=== PATIENT | male | born 1960 | race Caucasian/White ===

== ENCOUNTER → 2016-05-27 | Outpatient (CLI) | payer OTHER ==
--- NOTE | 2016-05-28 08:31 | BD ---
EXAMINATION TYPE: MG DEXA axial skeleton. 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 History of Fracture in Adulthood: no Secondary Osteoporosis: 1. Type 1 Diabetes: no 2. Hyperthyroidism: no 3. Menopause before 45: NA 4. Malnutrition: no 5. Chronic liver disease: no Rheumatoid Arthritis: no Current Tobacco Use: yes RISK FACTORS HISTORY OF: Other Fractures since Age 51: When: cracked ribs age 53 Family History of Osteoporosis: Smoke tobacco: Active: MEDICATIONS: Prednisone or other steroids: How Lon years Additional Medications: COPD, Additional History: EXAM MEASUREMENTS: Bone mineral densitometry was performed using the [employer] System. Bone mineral density as measured about the Lumbar spine is: ----- L1-L4(G/cm2): 1.023 T Score Values are as follows: ----- L2: -1.4 ----- L3: -1.0 ----- L4: -1.9 ----- L1-L4: -1.3 Bone mineral density about the R hip (g/cm2): 0.822 Bone mineral density about the L hip (g/cm2): 0.735 T Score values are as follows: -----R Neck: -1.6 -----L Neck: -2.2 -----R Intertrochanter: -0.7 -----L Intertrochanter: -0.7 IMPRESSION: Osteopenia (T Score between -2.5 and -1 as noted by T score values :L1-L4, Brendan Hips There is slightly increased risk of fracture and the patient may be considered for treatment. Re-Screen 1-2 years. NOTE: T-SCORE=SD OF THE YOUNG ADULT MEAN.
== END | disposition home or self-care (01) ==
LOC: RADBDWWP 14:49
PROVIDERS: ATTEND Family Medicine
DX: M85.851 Other specified disorders of bone density and structure, right thigh (principal); M85.852 Other specified disorders of bone density and structure, left thigh; S22.49XA Multiple fractures of ribs, unspecified side, initial encounter for closed fracture
CPT/HCPCS: 77080

== ENCOUNTER 2016-07-28 09:27 | Emergency (ER) | payer OTHER ==
[2016-07-28] MEDS ORDERED: SODIUM CHLORIDE 0.9% 1,000 ML IV STA (09:44)
[2016-07-28] MEDS ORDERED: KETOROLAC 30 MG/ML 1 ML VIAL IVP STA (09:49)
--- NOTE | 2016-07-28 09:52 | ED ---
Abdominal Pain HPI - General Chief Complaint: Abdominal Pain Stated Complaint: poss kidney stone Time Seen by Provider: 07/28/16 09:43 Source: patient, RN notes reviewed Mode of arrival: ambulatory Limitations: no limitations - History of Present Illness Initial Comments: 55-year-old male presents emergency Department with chief complaint of left flank pain. Patient states started 2 days ago. Patient states she has a history kidney stones and feels exactly the same. He felt that he noticed some blood initially states he has not seen since. Patient states that he had felt better yesterday but the pain worsened again today. Patient denies any vomiting states he was does a. No diarrhea no constipation. Patient states she 's felt hot and cold with the pain but states that he does not know. A fever. Denies any chest pain or shortness breath. - Related Data Home Medications Medication Instructions Recorded Confirmed Aclidinium [place] [Tudorza 1 puff INHALATION RT-BID 09/14/13 07/28/16 Pressair] Fexofenadine HCl [Alaina Allergy] 180 mg PO DAILY 03/21/15 07/28/16 Mometasone/Formoterol [Dulera 200 2 puff INHALATION RT-BID 03/21/15 07/28/16 Mcg/5 Mcg Inhaler] Albuterol Nebulized [Ventolin 2.5 mg INHALATION RT-QID PRN 08/26/15 07/28/16 Nebulized] Calcium Carbonate [Calcium] 600 mg PO DAILY 08/26/15 07/28/16 Multivitamins, Thera [Multivitamin 1 tab PO DAILY 08/26/15 07/28/16 (formulary)] Roflumilast [Daliresp] 500 mcg PO DAILY 08/26/15 07/28/16 Albuterol Sulfate [Proair Hfa] 2 puff INHALATION RT-QID PRN 07/28/16 07/28/16 Alendronate Sodium [Fosamax] 70 mg PO DE LA CRUZ 07/28/16 07/28/16 Theophylline Anhydrous [Uniphyl ER] 600 mg PO DAILY 07/28/16 07/28/16 predniSONE 5 mg PO DAILY 07/28/16 07/28/16 Previous Rx's Medication Instructions Recorded Hydrocodone/Acetaminophen [[place] 1 tab PO Q6HR PRN #20 tab 07/28/16 5-325] Ibuprofen [Motrin] 600 mg PO Q8HR PRN #30 tab 07/28/16 Tamsulosin [Flomax] 0.4 mg PO DAILY #7 cap 07/28/16 Allergies Allergy/AdvReac Type Severity Reaction Status Date / Time No Known Allergies Allergy Verified 07/28/16 10:21 Review of Systems ROS Statement: Those systems with pertinent positive or pertinent negative responses have been documented in the HPI. ROS Other: All systems not noted in ROS Statement are negative. Past Medical History Past Medical History: Asthma, COPD, Sleep Apnea/CPAP/BIPAP Additional Past Medical History / Comment(s): kidney stones History of Any Multi-Drug Resistant Organisms: None Reported Past Surgical History: Hernia Repair Past Anesthesia/Blood Transfusion Reactions: No Reported Reaction Additional Past Anesthesia/Blood Transfusion Reaction / Comment(s): no blood transfusions Past Psychological History: Anxiety Smoking Status: Current every day smoker Past Alcohol Use History: Occasional Past Drug Use History: None Reported - Past Family History Father Family Medical History: COPD Additional Family Medical History / Comment(s): of lung cancer Mother Family Medical History: Asthma General Exam Limitations: no limitations General appearance: alert, in no apparent distress Respiratory exam: Present: normal lung sounds bilaterally. Absent: respiratory distress, wheezes, rales, rhonchi, stridor Cardiovascular Exam: Present: regular rate, normal rhythm, normal heart sounds. Absent: systolic murmur, diastolic murmur, rubs, gallop, clicks GI/Abdominal exam: Present: soft, normal bowel sounds. Absent: distended, tenderness, guarding, rebound, rigid Back exam: Present: CVA tenderness (L). Absent: CVA tenderness (R) Neurological exam: Present: alert, oriented X3, CN II-XII intact Skin exam: Present: warm, dry, intact, normal color. Absent: rash Course Vital Signs 07/28/16 09:29 Temperature 97.5 F L Pulse Rate 96 Respiratory 20 Rate Blood Pressure 138/85 O2 Sat by Pulse 96 Oximetry Medical Decision Making - Medical Decision Making 55-year-old male presented for left flank pain. Patient has a trace of blood in his urine. Patient has a history kidney stones and consistent with his prior CT. Patient's left flank pain consistent with stones. Patient given pain medication, Flomax return parameters were discussed. - Lab Data Result diagrams: 07/28/16 09:44 07/28/16 09:44 Lab Results 07/28/16 07/28/16 07/28/16 Range/Units 09:44 09:44 09:45 WBC 10.3 (3.8-10.6) k/uL RBC 4.99 (4.30-5.90) m/uL Hgb 15.5 (13.0-17.5) gm/dL Hct 46.7 (39.0-53.0) % MCV 93.5 (80.0-100.0) fL MCH 31.1 (25.0-35.0) pg MCHC 33.3 (31.0-37.0) g/dL RDW 13.9 (11.5-15.5) % Plt Count 228 (150-450) k/uL Neutrophils % 81 % Lymphocytes % 11 % Monocytes % 5 % Eosinophils % 0 % Basophils % 0 % Neutrophils # 8.3 H (1.3-7.7) k/uL Lymphocytes # 1.1 (1.0-4.8) k/uL Monocytes # 0.6 (0-1.0) k/uL Eosinophils # 0.0 (0-0.7) k/uL Basophils # 0.0 (0-0.2) k/uL Sodium 137 (137-145) mmol/L Potassium 4.1 (3.5-5.1) mmol/L Chloride 101 (98-107) mmol/L Carbon Dioxide 25 (22-30) mmol/L Anion Gap 11 mmol/L BUN 15 (9-20) mg/dL Creatinine 1.51 H (0.66-1.25) mg/dL Est GFR (MDRD) Af Amer 59 (>60 ml/min/1.73 sqM) Est GFR (MDRD) Non-Af 48 (>60 ml/min/1.73 sqM) Glucose 85 (74-99) mg/dL Calcium 9.3 (8.4-10.2) mg/dL Total Bilirubin 1.4 H (0.2-1.3) mg/dL AST 34 (17-59) U/L ALT 37 (21-72) U/L Alkaline Phosphatase 73 (38-126) U/L Total Protein 6.9 (6.3-8.2) g/dL Albumin 4.3 (3.5-5.0) g/dL Amylase 69 (30-110) U/L Lipase 88 (23-300) U/L Urine Color Light Yellow Urine Appearance Clear (Clear) Urine pH 6.0 (5.0-8.0) Ur Specific [place] 1.003 (1.001-1.035) Urine Protein Negative (Negative) Urine Glucose (UA) Negative (Negative) Urine Ketones 1+ H (Negative) Urine Blood Small H (Negative) Urine Nitrite Negative (Negative) Urine Bilirubin Negative (Negative) Urine Urobilinogen <2.0 (<2.0) mg/dL Ur Leukocyte Esterase Negative (Negative) Urine RBC <1 (0-5) /hpf Urine WBC 1 (0-5) /hpf Disposition Clinical Impression: Left flank pain, Nephrolithiasis Disposition: HOME SELF-CARE Condition: Stable Instructions: Kidney Stones (ED) Additional Instructions: Please return to the Emergency Department if symptoms worsen or any other concerns. Prescriptions: Hydrocodone/Acetaminophen [[place] 5-325] 1 tab PO Q6HR PRN #20 tab PRN Reason: Pain Ibuprofen [Motrin] 600 mg PO Q8HR PRN #30 tab PRN Reason: Pain Tamsulosin [Flomax] 0.4 mg PO DAILY #7 cap Referrals: Naye Doll DO [Primary Care Provider] - 1-2 days Time of Disposition: 11:51
--- NOTE | 2016-07-28 10:07 | XR ---
EXAMINATION TYPE: XR KUB DATE OF EXAM: 07/28/2016 9:55 AM CLINICAL HISTORY: Severe left-sided flank pain. Right flank and back pain. TECHNIQUE: 2 upright KUB images of the abdomen are obtained. COMPARISON: Abdominal x-ray May 14, 2015. CT abdomen and pelvis May 15, 2015. FINDINGS: Scattered gas is seen in non-distended small bowel loops. Gas and fecal material is seen in non-distended colon. There is no visceromegaly, pneumoperitoneum, or abnormal calcification apprecia simba. Small bilateral calculi on prior CT are not clearly seen on plain films all measuring 3 mm or sm aller in size. Some vascular calcification in the pelvis and bilateral groins is present. The lung ba ses are clear and the osseous structures are intact. IMPRESSION: Overall nonobstructive bowel gas pattern. No definite nephrolithiasis. Small bilateral renal calculi prior CT is not as well seen on plain films.
[2016-07-28 10:13] LABS: Basophils % (A) 0 %; CH 32.4; CHCM 34.8; Eosinophils % (A) 0 %; HCT 46.7 % (39.0-53.0); HDW 2.46; HGB 15.5 gm/dL (13.0-17.5); Luc # (Auto) 0.19; Luc % (Auto) 2; Lymphocytes # (A) 1.1 k/uL (1.0-4.8); Lymphocytes % (A) 11 %; MCH 31.1 pg (25.0-35.0); MCHC 33.3 g/dL (31.0-37.0); MCV 93.5 fL (80.0-100.0); Mean Platelet Volume 7.1; Monocytes # (A) 0.6 k/uL (0-1.0); Monocytes % (A) 5 %; Neutrophils # (A) 8.3 k/uL (1.3-7.7); Neutrophils % (A) 81 %; RBC 4.99 m/uL (4.30-5.90); RDW 13.9 % (11.5-15.5); WBC 10.3 k/uL (3.8-10.6); WBC (Perox) 9.77
[2016-07-28 10:19] LABS: Calcium 9.3 mg/dL (8.4-10.2); Potassium 4.1 mmol/L (3.5-5.1); Total Bilirubin 1.4 mg/dL (0.2-1.3); Total Protein 6.9 g/dL (6.3-8.2)
[2016-07-28 11:26] LABS: Appearance,Urine Clear (Clear); Bilirubin,Urine Negative (Negative); Glucose,Urine (UA) Negative (Negative); Ketones,Urine 1+ (Negative); Leukocyte Esterase,Urine Negative (Negative); Nitrite,Urine Negative (Negative); Particle Count 276; Protein,Urine Negative (Negative); RBC,Urine <1 /hpf (0-5); Specific Gravity,Urine 1.003 (1.001-1.035); UA Billing (MACRO vs. MICRO) MICRO; Urobilinogen,Urine <2.0 mg/dL (<2.0); WBC,Urine 1 /hpf (0-5)
[2016-07-28 12:02] VITALS: BP 118/74; PULSE 81; RESP 18; TEMP 97.6
== END 2016-07-28 12:02 | disposition home or self-care (01) ==
LOC: EC 09:27
DX: N20.0 Calculus of kidney (principal); R31.9 Hematuria, unspecified; J45.909 Unspecified asthma, uncomplicated; J44.9 Chronic obstructive pulmonary disease, unspecified; F17.200 Nicotine dependence, unspecified, uncomplicated; Z79.51 Long term (current) use of inhaled steroids; Z79.899 Other long term (current) drug therapy
CPT/HCPCS: 99284; 96374; 96361; 36415; 80053; 82150; 83690; 85025; 81001; 74000; J1885

== ENCOUNTER → 2016-08-01 | Outpatient (CLI) | payer OTHER ==
--- NOTE | 2016-08-01 11:28 | XR ---
EXAMINATION TYPE: XR IVP DATE OF EXAM: 08/01/2016 COMPARISON: KUB obtained on July 28, 2016. HISTORY: History of nephrolithiasis with left flank pain. TECHNIQUE: Following intravenous administration of 100 cc Omnipaque 300, multiple spot images are obt ained. The preliminary film of the abdomen reveals no significant abnormality. No definite nephrolithiasis i s seen. There is a mild amount of stool noted in the colon. Following intravenous administration of contrast material, sequential films of the abdomen were obtai lakisha. There is prompt and symmetrical excretion of the contrast by both kidneys which demonstrate nor mal size and configuration. The calyces are not blunted bilaterally. The left ureter demonstrates a l inear filling defect in the very proximal ureter, this could be due to redundancy of the ureter. On t he 10 minute image there is some bulbous appearance to the extrarenal pelvis which is more than what would be expected given that the patient's CT scan from May 15, 2015 did not demonstrate an extraren al pelvis. There is gradual accumulation of contrast material in the urinary bladder showing no gross abnormality. The post-voiding film shows minimal residual contrast in the collecting systems and ur inary bladder. IMPRESSION: The left renal pelvis is prominent especially on the 10 minute image. This is increased in size when compared to the CT scan obtained on May 15, 2015. There is also a linear filling defect in the proxi mal ureter. Diagnostic considerations include a normal variant extrarenal pelvis, normal redundancy o f the proximal ureter, however given patient's history an obstructing focus at this location is diffi cult to fully exclude a CT scan is recommended if warranted.
== END ==
LOC: RADFLMAIN 08:44
PROVIDERS: ATTEND Family Medicine
DX: R10.84 Generalized abdominal pain (principal)
CPT/HCPCS: 74400; Q9967

== ENCOUNTER → 2016-08-08 | Outpatient (CLI) | payer OTHER ==
--- NOTE | 2016-08-08 14:11 | CT ---
EXAMINATION TYPE: CT abdomen pelvis wo con DATE OF EXAM: 08/08/2016 COMPARISON: 05/15/2015 INDICATION: Patient complains of left flank pain. DLP: 270.9 mGycm, Automated exposure control for dose reduction was used. CONTRAST: 0 mL of Omnipaque 300. Study performed without Oral Contrast TECHNIQUE: Axial images were obtained from above the diaphragm to the pubic rami in the axial plane a t 5 mm thick sections. Reconstructed images are reviewed on the computer in the coronal plane. FINDINGS: Limited CT sections are obtained the lung bases. The lung bases are clear. CT ABDOMEN: Liver: Normal Spleen: Normal Pancreas: Normal Adrenal glands: The adrenal glands are normal. Gallbladder: Normal Kidneys: No masses are evident. No hydronephrosis is present. There is mild prominence of the inferi or pole right renal collecting system. No cysts are present. There is a 0.3 similar calcification wi thout obstruction within the mid left kidney. Aorta: Vascular calcification is within the aorta. Inferior vena cava: Normal. CT PELVIS: Loops of bowel within the abdomen and pelvis are normal. Fecal debris is within the distal colon. Study is without oral contrast limiting its evaluation. Appendix: Normal as visualized. Urinary bladder: Normal. Genitourinary structures: Prostate is normal Osseous structures: No suspicious lytic or sclerotic lesions. Some facet changes are within the lumba r spine. IMPRESSIONS: 1. 0.3 cm nonobstructing left renal stone. 2. Previous UVJ junction stone is not identified. There continues to be prominence of the inferior po le left renal collecting system without hydroureter.
== END | disposition home or self-care (01) ==
LOC: RADCTMAIN 10:59
PROVIDERS: ATTEND Family Medicine
DX: N20.0 Calculus of kidney (principal)
CPT/HCPCS: 74176

== ENCOUNTER 2016-12-20 10:22 | Inpatient (IN) | payer OTHER ==
[2016-12-20] MEDS ORDERED: SODIUM CHLORIDE 0.9% 500 ML IV STA (10:30)
[2016-12-20] MEDS ORDERED: SODIUM CHLORIDE 0.9% 1,000 ML IV STA (10:30)
[2016-12-20] MEDS ORDERED: methylPREDNISolone SOD SUCCI 125 MG/2 ML VIAL IV STA (10:30)
[2016-12-20] MEDS ORDERED: IPRATROPIUM-ALBUTEROL 3 ML NEB INHALATION STA ×2 (10:30→11:58)
[2016-12-20] MEDS ORDERED: MAGNESIUM SULFATE-D5W PMX 1 GM in DEXTROSE/WATER 1 100ML.BAG IVPB STA (10:30)
[2016-12-20] MEDS ORDERED: LORazepam 2 MG/ML INJ IV STA (10:33)
--- NOTE | 2016-12-20 10:36 | ED ---
SOB HPI - General Chief Complaint: Shortness of Breath Stated Complaint: wyatt Time Seen by Provider: 12/20/16 10:28 Source: patient, RN notes reviewed Mode of arrival: wheelchair Limitations: no limitations - History of Present Illness Initial Comments: This is a 56-year-old male with a history of COPD/emphysema who is been having some intermittent episodes of shortness of breath throughout the week he got really bad yesterday and extremely bad today where was refractory to his albuterol nebulizer treatments. He denies any fevers chills sweats phlegm production he states the feeling is typical exacerbation of his underlying lung disease. He denies any overt chest pain he does admit he is very anxious because he can't breathe very well. MD Complaint: shortness of breath - Related Data Home Medications Medication Instructions Recorded Confirmed Aclidinium [place] [Tudorza 1 puff INHALATION RT-DAILY 09/14/13 12/20/16 Pressair] Fexofenadine HCl [Alaina Allergy] 180 mg PO DAILY 03/21/15 12/20/16 Mometasone/Formoterol [Dulera 200 2 puff INHALATION RT-BID 03/21/15 12/20/16 Mcg/5 Mcg Inhaler] Albuterol Nebulized [Ventolin 2.5 mg INHALATION RT-QID PRN 08/26/15 12/20/16 Nebulized] Roflumilast [Daliresp] 500 mcg PO DAILY 08/26/15 12/20/16 Albuterol Sulfate [Proair Hfa] 2 puff INHALATION RT-QID PRN 07/28/16 12/20/16 Alendronate Sodium [Fosamax] 70 mg PO DE LA CRUZ 07/28/16 12/20/16 predniSONE 5 mg PO DAILY 07/28/16 12/20/16 Theophylline Anhydrous 200 mg PO BID 12/20/16 12/20/16 [Theophylline] Allergies Allergy/AdvReac Type Severity Reaction Status Date / Time No Known Allergies Allergy Verified 12/20/16 12:18 Review of Systems ROS Statement: Those systems with pertinent positive or pertinent negative responses have been documented in the HPI. ROS Other: All systems not noted in ROS Statement are negative. Past Medical History Past Medical History: Asthma, COPD, Sleep Apnea/CPAP/BIPAP Additional Past Medical History / Comment(s): kidney stones History of Any Multi-Drug Resistant Organisms: None Reported Past Surgical History: Hernia Repair Past Anesthesia/Blood Transfusion Reactions: No Reported Reaction Additional Past Anesthesia/Blood Transfusion Reaction / Comment(s): no blood transfusions Past Psychological History: Anxiety Smoking Status: Current every day smoker Past Alcohol Use History: Occasional Past Drug Use History: None Reported - Past Family History Father Family Medical History: COPD Additional Family Medical History / Comment(s): of lung cancer Mother Family Medical History: Asthma General Exam - General Exam Comments Initial Comments: This is a well-developed well-nourished awake alert male he is in obvious respiratory distress Limitations: no limitations General appearance: alert, anxious, in distress Head exam: Present: atraumatic, normocephalic, normal inspection Eye exam: Present: normal appearance, PERRL, EOMI. Absent: scleral icterus, conjunctival injection, periorbital swelling ENT exam: Present: mucous membranes dry Neck exam: Present: normal inspection. Absent: tenderness, meningismus, lymphadenopathy Respiratory exam: Present: wheezes, accessory muscle use, decreased breath sounds Cardiovascular Exam: Present: normal rhythm, tachycardia GI/Abdominal exam: Present: soft, normal bowel sounds. Absent: distended, tenderness, guarding, rebound, rigid Extremities exam: Present: normal inspection, full ROM, normal capillary refill. Absent: tenderness, pedal edema, joint swelling, calf tenderness Back exam: Present: normal inspection Neurological exam: Present: alert, oriented X3, CN II-XII intact Psychiatric exam: Present: normal affect, normal mood Skin exam: Present: warm, dry, intact, normal color. Absent: rash Course Vital Signs 12/20/16 12/20/16 12/20/16 10:24 10:30 10:44 Temperature 97.2 F L Pulse Rate 114 H 103 H Respiratory 22 26 H Rate Blood Pressure 165/96 O2 Sat by Pulse 95 Oximetry 12/20/16 12/20/16 12/20/16 10:49 11:16 12:05 Temperature Pulse Rate 101 H 100 106 H Respiratory 22 Rate Blood Pressure 137/87 O2 Sat by Pulse 95 Oximetry 12/20/16 12/20/16 12:13 12:18 Temperature Pulse Rate 103 H 102 H Respiratory 20 Rate Blood Pressure 129/80 O2 Sat by Pulse 95 Oximetry - Reevaluation(s) Reevaluation #1: 11/11/17 11:59 Reevaluation patient finds that he is still very dyspneic with diminished breath sounds and diffuse wheezing. He has received IV magnesium thus far as well as IV steroids. Repeat updraft has been ordered. Reevaluation #2: 12/20/16 13:02 Reevaluation reveals patient still very dyspneic with diminished breath sounds. Medical Decision Making - Medical Decision Making The patient persists in having dyspnea with him and his breath sounds some wheezing in spite of aggressive treatment patient will be admitted case will be discussed with Dr. Akins the patient does see Dr. Ho from pulmonary medicine. - Lab Data Result diagrams: 12/20/16 10:42 12/20/16 10:40 Lab Results 12/20/16 12/20/16 12/20/16 Range/Units 10:40 10:40 10:42 WBC 11.0 H (3.8-10.6) k/uL RBC 5.46 (4.30-5.90) m/uL Hgb 16.1 (13.0-17.5) gm/dL Hct 50.9 (39.0-53.0) % MCV 93.2 (80.0-100.0) fL MCH 29.5 (25.0-35.0) pg MCHC 31.7 (31.0-37.0) g/dL RDW 15.2 (11.5-15.5) % Plt Count 233 (150-450) k/uL Neutrophils % 79 % Lymphocytes % 13 % Monocytes % 5 % Eosinophils % 1 % Basophils % 0 % Neutrophils # 8.8 H (1.3-7.7) k/uL Lymphocytes # 1.5 (1.0-4.8) k/uL Monocytes # 0.5 (0-1.0) k/uL Eosinophils # 0.2 (0-0.7) k/uL Basophils # 0.1 (0-0.2) k/uL PT (9.0-12.0) sec INR (<1.2) APTT (22.0-30.0) sec D-Dimer (<0.60) mg/L FEU Sodium 143 (137-145) mmol/L Potassium 4.9 (3.5-5.1) mmol/L Chloride 104 (98-107) mmol/L Carbon Dioxide 27 (22-30) mmol/L Anion Gap 12 mmol/L BUN 10 (9-20) mg/dL Creatinine 0.84 (0.66-1.25) mg/dL Est GFR (MDRD) Af Amer >60 (>60 ml/min/1.73 sqM) Est GFR (MDRD) Non-Af >60 (>60 ml/min/1.73 sqM) Glucose 101 H (74-99) mg/dL Calcium 9.9 (8.4-10.2) mg/dL Magnesium 1.8 (1.6-2.3) mg/dL Total Bilirubin 0.6 (0.2-1.3) mg/dL AST 32 (17-59) U/L ALT 45 (21-72) U/L Alkaline Phosphatase 60 (38-126) U/L Total Creatine Kinase 161 (55-170) U/L CK-MB (CK-2) 8.6 H* (0.0-2.4) ng/mL CK-MB (CK-2) Rel Index 5.3 Troponin I <0.012 (0.000-0.034) ng/mL NT-Pro-B Natriuret Pep pg/mL Total Protein 7.9 (6.3-8.2) g/dL Albumin 4.9 (3.5-5.0) g/dL 12/20/16 12/20/16 12/20/16 Range/Units 10:42 10:42 12:27 WBC (3.8-10.6) k/uL RBC (4.30-5.90) m/uL Hgb (13.0-17.5) gm/dL Hct (39.0-53.0) % MCV (80.0-100.0) fL MCH (25.0-35.0) pg MCHC (31.0-37.0) g/dL RDW (11.5-15.5) % Plt Count (150-450) k/uL Neutrophils % % Lymphocytes % % Monocytes % % Eosinophils % % Basophils % % Neutrophils # (1.3-7.7) k/uL Lymphocytes # (1.0-4.8) k/uL Monocytes # (0-1.0) k/uL Eosinophils # (0-0.7) k/uL Basophils # (0-0.2) k/uL PT 10.4 (9.0-12.0) sec INR 1.0 (<1.2) APTT 20.2 L (22.0-30.0) sec D-Dimer 0.40 (<0.60) mg/L FEU Sodium (137-145) mmol/L Potassium (3.5-5.1) mmol/L Chloride (98-107) mmol/L Carbon Dioxide (22-30) mmol/L Anion Gap mmol/L BUN (9-20) mg/dL Creatinine (0.66-1.25) mg/dL Est GFR (MDRD) Af Amer (>60 ml/min/1.73 sqM) Est GFR (MDRD) Non-Af (>60 ml/min/1.73 sqM) Glucose (74-99) mg/dL Calcium (8.4-10.2) mg/dL Magnesium (1.6-2.3) mg/dL Total Bilirubin (0.2-1.3) mg/dL AST (17-59) U/L ALT (21-72) U/L Alkaline Phosphatase (38-126) U/L Total Creatine Kinase (55-170) U/L CK-MB (CK-2) (0.0-2.4) ng/mL CK-MB (CK-2) Rel Index Troponin I (0.000-0.034) ng/mL NT-Pro-B Natriuret Pep 26 pg/mL Total Protein (6.3-8.2) g/dL Albumin (3.5-5.0) g/dL - EKG Data -: EKG Interpreted by Me EKG shows normal: sinus rhythm (Sinus rhythm [place] of 000101 QRS 94 QT since QTC of 344/443 evidence a right word axis no acute ST-T wave changes) - Radiology Data Radiology results: report reviewed (I did review the imaging and reports no acute findings.), image reviewed Critical Care Time Critical Care Time: Yes Critical Care Time: 31 minutes of critical care time which includes initial presentation with history physical labs x-rays several reevaluation the patient responsive therapy discuss with the patient has regarding findings discussed with the admitting physician admission orders and documentation of the above. Disposition Clinical Impression: Acute exacerbation of chronic obstructive airways disease, Adult respiratory distress syndrome Disposition: ADMITTED IP TO THIS HOSP Condition: Stable Referrals: Naye Doll DO [Primary Care Provider] - 1-2 days
[2016-12-20 11:01] LABS: Basophils # (A) 0.1 k/uL (0-0.2); Basophils % (A) 0 %; CH 30.9; CHCM 33.3; Eosinophils # (A) 0.2 k/uL (0-0.7); Eosinophils % (A) 1 %; HCT 50.9 % (39.0-53.0); HDW 2.48; HGB 16.1 gm/dL (13.0-17.5); Luc # (Auto) 0.12; Luc % (Auto) 1; Lymphocytes # (A) 1.5 k/uL (1.0-4.8); Lymphocytes % (A) 13 %; MCH 29.5 pg (25.0-35.0); MCHC 31.7 g/dL (31.0-37.0); MCV 93.2 fL (80.0-100.0); Mean Platelet Volume 7.7; Monocytes # (A) 0.5 k/uL (0-1.0); Monocytes % (A) 5 %; Neutrophils # (A) 8.8 k/uL (1.3-7.7); Neutrophils % (A) 79 %; RBC 5.46 m/uL (4.30-5.90); RDW 15.2 % (11.5-15.5); WBC (Perox) 10.59
--- NOTE | 2016-12-20 11:02 | XR ---
EXAMINATION TYPE: XR chest 1V portable DATE OF EXAM: 12/20/2016 HISTORY: difficulty breathing. REFERENCE: Previous study dated 08/26/2015. FINDINGS: Lung volumes are prominent. The lungs are clear. Pleural space are clear. The heart is not enlarged. IMPRESSION: COPD.
[2016-12-20 11:17] LABS: ALT 45 U/L (21-72); AST 32 U/L (17-59); Alkaline Phosphatase 60 U/L (38-126); Anion Gap 12 mmol/L; Blood Urea Nitrogen 10 mg/dL (9-20); Calcium 9.9 mg/dL (8.4-10.2); Carbon Dioxide 27 mmol/L (22-30); Chloride 104 mmol/L (98-107); Glucose 101 mg/dL (74-99); Magnesium 1.8 mg/dL (1.6-2.3); Non-African American GFR(MDRD) >60 (>60 ml/min/1.73 sqM); Potassium 4.9 mmol/L (3.5-5.1); Sodium 143 mmol/L (137-145); Total Bilirubin 0.6 mg/dL (0.2-1.3); Total Protein 7.9 g/dL (6.3-8.2)
[2016-12-20 11:26] LABS: Creatine Kinase 161 U/L (55-170)
[2016-12-20 11:39] LABS: Partial Thromboplastin Time 20.2 sec (22.0-30.0); Prothrombin Time 10.4 sec (9.0-12.0)
[2016-12-20 11:39] LABS: Troponin I <0.012 ng/mL (0.000-0.034)
[2016-12-20 11:44] LABS: Creatine Kinase MB 8.6 ng/mL (0.0-2.4)
--- NOTE | 2016-12-20 13:09 | ED ---
Medical Decision Making - Medical Decision Making I did discuss smoking cessation with the patient including the benefits and the risks. Conversation lasted 3.1 minutes. - Lab Data Result diagrams: 12/20/16 10:42 12/20/16 10:40 Lab Results 12/20/16 12/20/16 12/20/16 Range/Units 10:40 10:40 10:42 WBC 11.0 H (3.8-10.6) k/uL RBC 5.46 (4.30-5.90) m/uL Hgb 16.1 (13.0-17.5) gm/dL Hct 50.9 (39.0-53.0) % MCV 93.2 (80.0-100.0) fL MCH 29.5 (25.0-35.0) pg MCHC 31.7 (31.0-37.0) g/dL RDW 15.2 (11.5-15.5) % Plt Count 233 (150-450) k/uL Neutrophils % 79 % Lymphocytes % 13 % Monocytes % 5 % Eosinophils % 1 % Basophils % 0 % Neutrophils # 8.8 H (1.3-7.7) k/uL Lymphocytes # 1.5 (1.0-4.8) k/uL Monocytes # 0.5 (0-1.0) k/uL Eosinophils # 0.2 (0-0.7) k/uL Basophils # 0.1 (0-0.2) k/uL PT (9.0-12.0) sec INR (<1.2) APTT (22.0-30.0) sec D-Dimer (<0.60) mg/L FEU Sodium 143 (137-145) mmol/L Potassium 4.9 (3.5-5.1) mmol/L Chloride 104 (98-107) mmol/L Carbon Dioxide 27 (22-30) mmol/L Anion Gap 12 mmol/L BUN 10 (9-20) mg/dL Creatinine 0.84 (0.66-1.25) mg/dL Est GFR (MDRD) Af Amer >60 (>60 ml/min/1.73 sqM) Est GFR (MDRD) Non-Af >60 (>60 ml/min/1.73 sqM) Glucose 101 H (74-99) mg/dL Calcium 9.9 (8.4-10.2) mg/dL Magnesium 1.8 (1.6-2.3) mg/dL Total Bilirubin 0.6 (0.2-1.3) mg/dL AST 32 (17-59) U/L ALT 45 (21-72) U/L Alkaline Phosphatase 60 (38-126) U/L Total Creatine Kinase 161 (55-170) U/L CK-MB (CK-2) 8.6 H* (0.0-2.4) ng/mL CK-MB (CK-2) Rel Index 5.3 Troponin I <0.012 (0.000-0.034) ng/mL NT-Pro-B Natriuret Pep pg/mL Total Protein 7.9 (6.3-8.2) g/dL Albumin 4.9 (3.5-5.0) g/dL 12/20/16 12/20/16 12/20/16 Range/Units 10:42 10:42 12:27 WBC (3.8-10.6) k/uL RBC (4.30-5.90) m/uL Hgb (13.0-17.5) gm/dL Hct (39.0-53.0) % MCV (80.0-100.0) fL MCH (25.0-35.0) pg MCHC (31.0-37.0) g/dL RDW (11.5-15.5) % Plt Count (150-450) k/uL Neutrophils % % Lymphocytes % % Monocytes % % Eosinophils % % Basophils % % Neutrophils # (1.3-7.7) k/uL Lymphocytes # (1.0-4.8) k/uL Monocytes # (0-1.0) k/uL Eosinophils # (0-0.7) k/uL Basophils # (0-0.2) k/uL PT 10.4 (9.0-12.0) sec INR 1.0 (<1.2) APTT 20.2 L (22.0-30.0) sec D-Dimer 0.40 (<0.60) mg/L FEU Sodium (137-145) mmol/L Potassium (3.5-5.1) mmol/L Chloride (98-107) mmol/L Carbon Dioxide (22-30) mmol/L Anion Gap mmol/L BUN (9-20) mg/dL Creatinine (0.66-1.25) mg/dL Est GFR (MDRD) Af Amer (>60 ml/min/1.73 sqM) Est GFR (MDRD) Non-Af (>60 ml/min/1.73 sqM) Glucose (74-99) mg/dL Calcium (8.4-10.2) mg/dL Magnesium (1.6-2.3) mg/dL Total Bilirubin (0.2-1.3) mg/dL AST (17-59) U/L ALT (21-72) U/L Alkaline Phosphatase (38-126) U/L Total Creatine Kinase (55-170) U/L CK-MB (CK-2) (0.0-2.4) ng/mL CK-MB (CK-2) Rel Index Troponin I (0.000-0.034) ng/mL NT-Pro-B Natriuret Pep 26 pg/mL Total Protein (6.3-8.2) g/dL Albumin (3.5-5.0) g/dL Disposition Clinical Impression: Acute exacerbation of chronic obstructive airways disease, Adult respiratory distress syndrome, Smoking Disposition: ADMITTED IP TO THIS HOSP Condition: Stable Referrals: Naye Doll DO [Primary Care Provider] - 1-2 days
[2016-12-20 14:34] VITALS: BMI 25.0
[2016-12-20] MEDS ORDERED: LORazepam 0.5 MG TAB PO PRN (15:46)
[2016-12-20] MEDS ORDERED: IPRATROPIUM-ALBUTEROL 3 ML NEB INHALATION SCH (16:00)
--- NOTE | 2016-12-20 16:34 | HP ---
HISTORY AND PHYSICAL DATE OF SERVICE: 12/20/2016. CHIEF COMPLAINT: Shortness of breath. HISTORY: This 56-year-old gentleman with a past medical history of multiple medical problems including asthma, COPD, sleep apnea, history kidney stones, CPAP, history of anxiety being followed by Dr. Doll in the outpatient setting, was complaining of shortness of breath and cough for the past week. The patient continues to smoke and the shortness of breath refractory to albuterol nebulizers and the patient came to [facility] and admitted for evaluation and treatment. Patient also had some phlegm production, but no sweats or chills. No rigors reported. The initial chest x- ray did not show any acute pneumonia. Patient started on IV antibiotics and bronchodilators, steroids. The patient is extremely short of breath and unable to complete a sentence and has a pulse ox is about 89 on 2 L at this time. Patient closely monitored. PAST MEDICAL HISTORY: History of asthma, COPD, sleep apnea, kidney stones. MEDICATIONS: Prior to admission include home medications are: 1. Theophylline 200 mg p.o. b.i.d. 2. Tudorza Pressair 1 puff daily. 3. Prednisone 5 mg p.o. daily. 4. Daliresp 500 mg p.o. daily. 5. Dulera 2 puffs b.i.d. 6. Alaina 180 mg daily. 7. Fosamax 70 mg. 8. ProAir 2 puffs q.i.d. p.r.n. 9. Ventolin 2.5 q.i.d. p.r.n. ALLERGIES: None. FAMILY HISTORY: History of chronic obstructive pulmonary disease and lung cancer. SOCIAL HISTORY: History of smoking. Occasional alcohol intake. REVIEW OF SYSTEMS: ENT: No diminished hearing or vision. CARDIOVASCULAR: No angina. RESPIRATORY: As mentioned earlier. GI: No nausea. : No dysuria NERVOUS SYSTEM: No numbness or weakness. ALLERGY/IMMUNOLOGY: No asthma or hayfever. MUSCULOSKELETAL: As mentioned earlier. HEMATOLOGY/ONCOLOGY: No anemia. ENDOCRINE: No history of diabetes or hypothyroidism. CONSTITUTIONAL: As mentioned earlier. DERMATOLOGY: Negative. RHEUMATOLOGY: Negative. PSYCHIATRY: As mentioned earlier. PHYSICAL EXAMINATION: Alert and oriented x3. Pulse 125, blood pressure 135/70, respiration 20, temperature 98.2, pulse ox 98% on 2 L. HEENT: Conjunctivae normal. Oral mucosa moist. NECK: No jugular venous distention. No carotid bruit. No lymph node enlargement. CARDIOVASCULAR: S1, S2. RESPIRATORY: Breath sounds diminished in the bases. Bilateral scattered rhonchi and crackles. Expiratory wheezing also present. ABDOMEN: Soft, nontender. No mass palpable. LEGS: No edema, no cyanosis. NERVOUS SYSTEM: Higher function as mentioned. Moves all four limbs. No focal deficits. LYMPHATICS: No lymphadenopathy in the neck, axillae or groin. SKIN: No ulcer, rash bleeding. LABS: WBC 11, hemoglobin 16.1. ASSESSMENT: 1. Chronic obstructive pulmonary disease acute exacerbation with acute purulent tracheobronchitis with acute hypoxic respiratory failure with failure of outpatient treatment. 2. History of asthma, chronic obstructive pulmonary disease. 3. History of nicotine dependence. 4. Sleep apnea. 5. Nephrolithiasis. 6. Chronic hypoxic respiratory failure. 7. Anxiety. 8. Use CPAP at night. RECOMMENDATIONS AND DISCUSSION: In this 56-year-old gentleman who presented with multiple complex medical issues , will monitor the patient closely. Continue the current management and symptomatic treatment. I recommend optimize the bronchodilators and IV steroids. Broad- spectrum IV antibiotics. Pulmonary consultation. ABG on oxygen. Continue to monitor. The patient might need BiPAP at this time for continued evaluation monitoring and Dr. oH will be consulted as mentioned earlier. We will also transfer the patient out to floor if the patient is not improving. Further recommendations to follow. MMODL / IJN: [id number] / SNOW
[2016-12-20] MEDS: IPRATROPIUM-ALBUTEROL 3 ML NEB INHALATION SCH ×2 (16:38→20:36)
[2016-12-20 17:05] LABS: ABG HCO3 22 mmol/L (21-25); ABG PCO2 37 mmHg (35-45); ABG PH 7.39 (7.35-7.45); ABG PO2 102 mmHg (83-108); ABG TCO2 23 mmol/L (19-24)
[2016-12-20 17:06] LABS: ABG Base Excess -1.9 mmol/L
[2016-12-20] MEDS: methylPREDNISolone SOD SUCCI 125 MG/2 ML VIAL IV SCH ×2 (18:02→23:58)
[2016-12-20] MEDS: ALPRAZolam 0.5 MG TAB PO PRN (18:02)
[2016-12-20] MEDS: HEPARIN SODIUM,PORCINE 5,000 UNIT/ML 1 ML VIAL SQ SCH (20:11)
[2016-12-20] MEDS: BUDESONIDE 1 MG/2 ML NEBU INHALATION SCH ×2 (20:36)
[2016-12-20] MEDS: FORMOTEROL FUMARATE 20 MCG/2 ML NEBU INHALATION SCH ×2 (20:43)
[2016-12-21] MEDS: methylPREDNISolone SOD SUCCI 125 MG/2 ML VIAL IV SCH ×4 (05:54→23:18)
[2016-12-21] MEDS: IPRATROPIUM-ALBUTEROL 3 ML NEB INHALATION PRN (06:01)
[2016-12-21] MEDS: ALPRAZolam 0.5 MG TAB PO PRN ×3 (06:06→22:08)
[2016-12-21 07:12] LABS: Basophils % (A) 0 %; CH 31.8; CHCM 33.8; Eosinophils % (A) 0 %; HCT 43.3 % (39.0-53.0); HDW 2.53; HGB 13.8 gm/dL (13.0-17.5); Luc # (Auto) 0.03; Luc % (Auto) 0; Lymphocytes # (A) 0.7 k/uL (1.0-4.8); Lymphocytes % (A) 5 %; MCH 30.2 pg (25.0-35.0); MCHC 31.9 g/dL (31.0-37.0); MCV 94.5 fL (80.0-100.0); Mean Platelet Volume 7.3; Monocytes # (A) 0.3 k/uL (0-1.0); Monocytes % (A) 2 %; Neutrophils # (A) 13.1 k/uL (1.3-7.7); Neutrophils % (A) 92 %; RBC 4.58 m/uL (4.30-5.90); RDW 13.7 % (11.5-15.5); WBC 14.2 k/uL (3.8-10.6); WBC (Perox) 14.28
[2016-12-21] MEDS: BUDESONIDE 1 MG/2 ML NEBU INHALATION SCH ×2 (07:28→19:07)
[2016-12-21] MEDS: IPRATROPIUM-ALBUTEROL 3 ML NEB INHALATION SCH ×4 (07:28→19:07)
[2016-12-21] MEDS: FORMOTEROL FUMARATE 20 MCG/2 ML NEBU INHALATION SCH ×2 (07:28→19:07)
[2016-12-21 07:30] LABS: Anion Gap 7 mmol/L; Blood Urea Nitrogen 13 mg/dL (9-20); Calcium 8.6 mg/dL (8.4-10.2); Carbon Dioxide 24 mmol/L (22-30); Chloride 107 mmol/L (98-107); Glucose 129 mg/dL (74-99); Non-African American GFR(MDRD) >60 (>60 ml/min/1.73 sqM); Potassium 4.4 mmol/L (3.5-5.1); Sodium 138 mmol/L (137-145)
[2016-12-21] MEDS: PANTOPRAZOLE 40 MG TABLET PO SCH (07:44)
[2016-12-21] MEDS: THEOPHYLLINE 24 HOUR 400 MG CAP.ER.24H PO SCH (09:09)
[2016-12-21] MEDS: HEPARIN SODIUM,PORCINE 5,000 UNIT/ML 1 ML VIAL SQ SCH ×2 (09:09→20:59)
[2016-12-21] MEDS: LORATADINE 10 MG TAB PO SCH (09:09)
[2016-12-21] MEDS: NON-FORMULARY DRUG (Roflumilast [Daliresp] 500 MCG) PO SCH (09:10)
[2016-12-21] MEDS: NICOTINE 21MG/24HR PATCH TRANSDERM SCH (09:10)
--- NOTE | 2016-12-21 12:17 | P.CNPUL ---
History of Present Illness Consult date: 12/21/16 Requesting physician: Donna Akins Reason for consult: COPD Chief complaint: Shortness of breath History of present illness: This is a 56-year-old white male with history of severe end-stage COPD, gold stage IV, O2 dependent but mostly on nocturnal oxygen, prednisone dependent maintained on 5 mg of prednisone daily. Patient is primarily a patient of Dr. Han, and I usually see him in the office on a regular basis. Patient is also known to history of obstructive sleep apnea, chronic anxiety, tobacco dependence syndrome, continues to smoke in spite of his underlying COPD. Patient was brought into the hospital yesterday with mostly increased shortness of breath, cough which is productive with yellow phlegm, wheezing, but no fever , no chills, no nausea, no vomiting, no abdominal pain, no melena, and no hematemesis. Patient's last admission to [facility] was back over a year ago. Patient is compliant with all his meds, however he believes the cold weather change has been a major contributing factor to his COPD exacerbation. Chest x-ray on admission showed no evidence of infiltrate. Patient was admitted, and this consult was initiated. Review of Systems 14 point review of systems were obtained, please refer to pertinent positives in HPI, otherwise remaining systems are negative Past Medical History Past Medical History: Asthma, COPD, Sleep Apnea/CPAP/BIPAP Additional Past Medical History / Comment(s): kidney stones, CPAP/oxygen at night. History of Any Multi-Drug Resistant Organisms: None Reported Past Surgical History: Hernia Repair Additional Past Surgical History / Comment(s): . Past Anesthesia/Blood Transfusion Reactions: No Reported Reaction Additional Past Anesthesia/Blood Transfusion Reaction / Comment(s): no blood transfusions Past Psychological History: Anxiety Additional Psychological History / Comment(s): anxiety with shortness of breath. Smoking Status: Current every day smoker Past Alcohol Use History: Occasional Past Drug Use History: None Reported Additional Drug Use History / Comment(s): . - Past Family History Father Family Medical History: COPD Additional Family Medical History / Comment(s): of lung cancer Mother Family Medical History: Asthma Medications and Allergies Home Medications Medication Instructions Recorded Confirmed Type Aclidinium [place] [Tudorza 1 puff INHALATION RT-DAILY 09/14/13 12/20/16 History Pressair] Fexofenadine HCl [Alaina Allergy] 180 mg PO DAILY 03/21/15 12/20/16 History Mometasone/Formoterol [Dulera 200 2 puff INHALATION RT-BID 03/21/15 12/20/16 History Mcg/5 Mcg Inhaler] Albuterol Nebulized [Ventolin 2.5 mg INHALATION RT-QID PRN 08/26/15 12/20/16 History Nebulized] Roflumilast [Daliresp] 500 mcg PO DAILY 08/26/15 12/20/16 History Albuterol Sulfate [Proair Hfa] 2 puff INHALATION RT-QID PRN 07/28/16 12/20/16 History Alendronate Sodium [Fosamax] 70 mg PO DE [place] CRUZ 07/28/16 12/20/16 History predniSONE 5 mg PO DAILY 07/28/16 12/20/16 History Theophylline Anhydrous 200 mg PO BID 12/20/16 12/20/16 History [Theophylline] Allergies Allergy/AdvReac Type Severity Reaction Status Date / Time No Known Allergies Allergy Verified 12/20/16 12:18 Physical Exam Vitals: Vital Signs Temp Pulse Pulse Resp BP BP Pulse Ox 12/21/16 11:22 108 H 12/21/16 11:14 100 12/21/16 10:27 112 H 12/21/16 08:13 97.7 F 112 H 22 131/81 91 L 12/21/16 07:50 108 H 12/21/16 07:38 110 H 12/21/16 07:37 110 H 12/21/16 07:28 108 H 95 12/21/16 06:13 106 H 12/21/16 06:01 112 H 12/20/16 21:36 97.2 F L 104 H 24 128/80 96 12/20/16 21:02 106 H 12/20/16 20:53 102 H 12/20/16 20:52 102 H 12/20/16 20:36 98 12/20/16 15:52 114 H 12/20/16 15:40 126 H 12/20/16 15:00 98.2 F 125 H 20 135/78 93 L 12/20/16 14:00 97.1 F L 110 H 20 135/81 95 12/20/16 13:30 100 20 139/89 95 12/20/16 13:18 97.7 F 98 20 146/75 95 12/20/16 12:18 102 H 20 129/80 95 12/20/16 12:13 103 H Intake and Output 12/20/16 12/21/16 12/21/16 22:59 06:59 14:59 Intake Total 300 400 Balance 300 400 Intake: Intake, IV Titration 300 Amount Sodium Chloride 0.9% 1, 300 000 ml @ 100 mls/hr IV . Q10H STA Rx#:[id number] Oral 400 Other: Voiding Method Toilet Urinal # Voids 1 Physical Exam: Revealed a 56-year-old white male, cushingoid, cough, in no form of respiratory distress at present. HEENT:[ Cushingoid, Neck is supple.] [No neck masses.] [No thyromegaly.] [No JVD.] PERRLA, EOMI. Chest: [Diminished breath sound bilaterally, slight wheezing on forced expiratory maneuver was noted.] Cardiac Exam: [Normal S1 and S2, no S3 gallop, no murmur.] Abdomen: [Soft, nontender, no megaly, no rebound, no guarding, normal bowel sounds.] Extremities: [No clubbing, no edema, no cyanosis.] Neurological Exam: [No focal neurologic deficit Psychiatric: Normal mood and affect in mental status examination. Lymphatics: No lymphadenopathy was appreciated. Musculoskeletal: Normal range of motion, no deformities, no tenderness.] Results - Laboratory Findings CBC and BMP: 12/21/16 06:46 12/21/16 06:46 ABG ABG pH 7.39 (7.35-7.45) 12/20/16 16:27 ABG pCO2 37 mmHg (35-45) 12/20/16 16:27 ABG pO2 102 mmHg (83-108) 12/20/16 16:27 ABG O2 Saturation 98.0 % (94-97) H 12/20/16 16:27 PT/INR, D-dimer PT 10.4 sec (9.0-12.0) 12/20/16 10:42 INR 1.0 (<1.2) 12/20/16 10:42 D-Dimer 0.40 mg/L FEU (<0.60) 12/20/16 12:27 Abnormal lab findings: Abnormal Labs 12/20/16 12/20/16 12/20/16 10:40 10:40 10:42 WBC 11.0 H Neutrophils # 8.8 H Lymphocytes # APTT ABG O2 Saturation Glucose 101 H CK-MB (CK-2) 8.6 H* 12/20/16 12/20/16 12/21/16 10:42 16:27 06:46 WBC 14.2 H Neutrophils # 13.1 H Lymphocytes # 0.7 L APTT 20.2 L ABG O2 Saturation 98.0 H Glucose CK-MB (CK-2) 12/21/16 06:46 WBC Neutrophils # Lymphocytes # APTT ABG O2 Saturation Glucose 129 H CK-MB (CK-2) - Diagnostic Findings Chest x-ray: image reviewed (COPD findings, lung volumes are prominent, no evidence of active disease noted.) Assessment and Plan Assessment: Impression: 1 acute exacerbation of COPD and acute on chronic hypoxic respiratory failure. 2 history of tobacco dependence syndrome, patient was counseled over and over again regarding his smoking cessation. 3 history of chronic anxiety syndrome. 4 history of obstructive sleep apnea uses no to normal O2 and CPAP at night. 5 history of nephrolithiasis. Recommendation: Reviewed the present course of treatment, patient seems to be on appropriate course of bronchodilators, steroids, I would only add doxycycline , and likely consider discharge planning in the next 24 hours. Patient would have to be discharged on a relatively high dose of prednisone, tapered down to his usual dose of 5 mg over the next 3 weeks. We'll continue to follow closely. Time with Patient: Greater than 30
[2016-12-21] MEDS: DOXYCYCLINE 50 MG CAP PO SCH ×2 (13:04→20:58)
[2016-12-21] MEDS ORDERED: NON-FORMULARY DRUG (Alendronate Sodium [Fosamax] 70 MG) PO SCH (13:08)
--- NOTE | 2016-12-21 18:00 | PN ---
PROGRESS NOTE DATE OF SERVICE: 12/21/2016. INTERIM HISTORY: This 56-year-old gentleman was admitted with COPD acute exacerbation. Acute purulent tracheobronchitis, hypoxic respiratory failure is improving significantly. No chest pain. No palpitations. No fever. The patient has significant anxiety as well. Patient is on extensive bronchodilator treatment. Dr. Ho is following the patient closely. The most recent chest x-ray showed no evidence of pneumonia. PAST MEDICAL HISTORY: Reviewed. REVIEW OF SYSTEMS: CARDIOVASCULAR: No angina and no palpitations. Respiratory: As mentioned earlier. GI no nausea or vomiting. no dysuria. Central nervous system: No numbness or weakness. Allergy/ limnology: No asthma or hayfever. Musculoskeletal: As mentioned earlier. CURRENT MEDICATIONS: Reviewed and include: 1. DuoNeb q.i.d. and p.r.n. 2. Xanax 0.5 t.i.d. p.r.n. 3. Pulmicort 1 mg b.i.d. 4. Vibramycin b.i.d. 5. Perforomist. 6. Claritin. 7. Ativan. 8. Solu-Medrol 60 IV q.6h. 9. Dularest. 10.Protonix. 11.Magdy-24. PHYSICAL EXAM: Patient is alert and oriented x3. The pulse is 112, blood pressure 131/81, respiratory rate 22, temp 97.7, pulse ox 98% on room air. HEENT: Conjunctivae normal. Oral mucosa moist. Neck is no jugular venous distention. No carotid bruit. No lymph nodes enlargement. Cardiovascular system: S1, S2 muffled. Respiratory: Breath sounds diminished in the bases and scattered rhonchi and crackles. Expiratory wheezing also present. Breathing efforts are markedly increased. ABDOMEN: Soft, nontender. Legs are no edema. No swelling. NERVOUS SYSTEM: Higher functions as mentioned. Moves all four extremities. Lymphatics: No lymph nodes palpable in the neck, axillae or groin. SKIN: No ulcers, rashes or bleeding. LAB STUDIES: At this time shows WBC 14, sugars 129, influenza negative. ASSESSMENT: 1. Chronic obstructive pulmonary disease exacerbation with acute purulent tracheobronchitis with acute hypoxic respiratory failure with failure of outpatient treatment. 2. History of asthma, chronic obstructive pulmonary disease. 3. History of nicotine dependence. 4. History of sleep apnea. 5. Anxiety. 6. Nephrolithiasis. 7. Chronic hypoxic respiratory failure. Uses CPAP at night. RECOMMENDATIONS AND DISCUSSION: I recommend to continue current management. Continue the symptomatic treatment. Continue bronchodilators. Continue the rest of medications. Use the Xanax and CPAP as mentioned early. Otherwise continue to monitor. Guarded prognosis. Further recommendations to follow. MMMAMADOUL / MARLONN: [id number] /
[2016-12-22] MEDS: IPRATROPIUM-ALBUTEROL 3 ML NEB INHALATION PRN (04:11)
[2016-12-22] MEDS: methylPREDNISolone SOD SUCCI 125 MG/2 ML VIAL IV SCH ×2 (05:24→12:07)
[2016-12-22] MEDS: ALPRAZolam 0.5 MG TAB PO PRN ×3 (05:43→22:12)
[2016-12-22 07:40] LABS: Basophils % (A) 0 %; CH 31.7; CHCM 33.7; Eosinophils % (A) 0 %; HCT 40.2 % (39.0-53.0); HDW 2.54; Luc # (Auto) 0.05; Luc % (Auto) 0; Lymphocytes # (A) 0.5 k/uL (1.0-4.8); Lymphocytes % (A) 3 %; MCH 30.5 pg (25.0-35.0); MCHC 32.3 g/dL (31.0-37.0); MCV 94.4 fL (80.0-100.0); Mean Platelet Volume 7.4; Monocytes # (A) 0.4 k/uL (0-1.0); Monocytes % (A) 2 %; Neutrophils # (A) 14.5 k/uL (1.3-7.7); Neutrophils % (A) 94 %; RBC 4.26 m/uL (4.30-5.90); RDW 13.6 % (11.5-15.5); WBC 15.4 k/uL (3.8-10.6); WBC (Perox) 16.17
[2016-12-22 07:46] LABS: Anion Gap 8 mmol/L; Blood Urea Nitrogen 15 mg/dL (9-20); Carbon Dioxide 24 mmol/L (22-30); Chloride 105 mmol/L (98-107); Glucose 128 mg/dL (74-99); Non-African American GFR(MDRD) >60 (>60 ml/min/1.73 sqM); Sodium 137 mmol/L (137-145)
[2016-12-22] MEDS: DOXYCYCLINE 50 MG CAP PO SCH ×2 (09:18→20:23)
[2016-12-22] MEDS: PANTOPRAZOLE 40 MG TABLET PO SCH (09:18)
[2016-12-22] MEDS: NICOTINE 21MG/24HR PATCH TRANSDERM SCH ×2 (09:19→09:25)
[2016-12-22] MEDS: THEOPHYLLINE 24 HOUR 400 MG CAP.ER.24H PO SCH (09:19)
[2016-12-22] MEDS: HEPARIN SODIUM,PORCINE 5,000 UNIT/ML 1 ML VIAL SQ SCH ×2 (09:19→20:24)
[2016-12-22] MEDS: LORATADINE 10 MG TAB PO SCH (09:19)
[2016-12-22] MEDS: NON-FORMULARY DRUG (Roflumilast [Daliresp] 500 MCG) PO SCH (09:23)
[2016-12-22] MEDS: BUDESONIDE 1 MG/2 ML NEBU INHALATION SCH ×2 (09:26→19:56)
[2016-12-22] MEDS: IPRATROPIUM-ALBUTEROL 3 ML NEB INHALATION SCH ×5 (09:26→19:56)
[2016-12-22] MEDS: FORMOTEROL FUMARATE 20 MCG/2 ML NEBU INHALATION SCH ×2 (09:26→19:56)
--- NOTE | 2016-12-22 12:26 | P.PN ---
Subjective Progress Note Date: 12/22/16 Principal diagnosis: COPD exacerbation Progress note dated 12/22/2016 56-year-old male with a history of severe end-stage COPD. He has goal stage IV disease. He is oxygen and prednisone dependent. The patient sees Dr. Hodge as his family doctor. 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 He has a history of sleep apnea syndrome chronic anxiety chronic Tobacco dependence. The patient came into the hospital with complaints of increasing shortness of breath cough which is productive of yellow phlegm wheezing chest tightness. No fever no chills. No nausea vomiting or diarrhea. No chest pain. His last admission with more than a year ago.The patient seemed be doing a bit better today. Feeling less short of breath. Still with chest congestion cough tightness and wheezing. Objective - Vital Signs Vital signs: Vital Signs Temp 97.8 F 12/22/16 07:00 Pulse 107 H 12/22/16 09:38 Resp 18 12/22/16 07:00 BP 139/86 12/22/16 07:00 Pulse Ox 95 12/22/16 09:27 Intake & Output 12/21/16 12/22/16 12/22/16 18:59 06:59 18:59 Intake Total 600 Balance 600 Intake: Oral 600 Other: Voiding Method Toilet Toilet Urinal Urinal # Voids 2 1 1 - Exam No acute distress, oriented 3. HEENT examination is grossly unremarkable. Mucous membranes are moist. No oral lesions. Neck supple. Full range of motion. No adenopathy or thyromegaly. Veins are flat. Cardiovascular examination reveals regular rhythm rate. S1-S2 normal. No S3- S4 or murmur. Abdomen soft bowel sounds are heard. No masses or tenderness. Pulmonary examination reveals diminished breath sounds throughout. Symmetric story wheezes and rhonchi. There is prolongation on forced maneuver. No crackles. Extremities are intact. No cyanosis clubbing or edema. Skin without rash. Neurologic examination is brief but nonfocal. - Labs CBC & Chem 7: 12/22/16 07:08 12/22/16 07:08 Labs: Abnormal Lab Results - Last 24 Hours (Table) 12/22/16 12/22/16 Range/Units 07:08 07:08 WBC 15.4 H (3.8-10.6) k/uL RBC 4.26 L (4.30-5.90) m/uL Neutrophils # 14.5 H (1.3-7.7) k/uL Lymphocytes # 0.5 L (1.0-4.8) k/uL Glucose 128 H (74-99) mg/dL Assessment and Plan (1) Anxiety Current Visit: Yes Status: Acute Code(s): F41.9 - ANXIETY DISORDER, UNSPECIFIED SNOMED Code(s): 58860022 (2) Sleep apnea syndrome Current Visit: Yes Status: Acute Code(s): G47.30 - SLEEP APNEA, UNSPECIFIED SNOMED Code(s): 63095848 (3) Hypoxemia Current Visit: Yes Status: Acute Code(s): R09.02 - HYPOXEMIA SNOMED Code(s ): 424456078 (4) Acute exacerbation of chronic obstructive airways disease Current Visit: Yes Status: Acute Code(s): J44.1 - CHRONIC OBSTRUCTIVE PULMONARY DISEASE W (ACUTE) EXACERBATION SNOMED Code(s): 739996948 (5) Smoking Current Visit: Yes Status: Acute Code(s): F17.200 - NICOTINE DEPENDENCE, UNSPECIFIED, UNCOMPLICATED SNOMED Code(s): 59054768 (6) Acute respiratory failure Current Visit: No Status: Acute Code(s): J96.00 - ACUTE RESPIRATORY FAILURE , UNSP W HYPOXIA OR HYPERCAPNIA SNOMED Code(s): 12474225 Plan: plan dated 12/22/2016 The patient seemed be doing a bit better. On all the appropriate medications. This was adjusted by my partner yesterday. We'll continue to follow. Prognosis is guarded. The patient's counseled about smoking cessation. The patient should follow with my partner post discharge. Time with Patient: Less than 30
--- NOTE | 2016-12-22 18:25 | PN ---
PROGRESS NOTE DATE OF SERVICE: 12/22/2016 INTERVAL HISTORY: This 56-year-old gentleman who was admitted with COPD and acute purulent tracheobronchitis and acute hypoxic respiratory failure is being closely monitored. No chest pain. No palpitations. No fever. The patient has significant wheezing. Patient on IV steroids. Pulmonary, Dr. Reynoso is following the patient closely. PHYSICAL EXAM: Alert and oriented times three. Pulse 101, blood pressure 130/70, respiration 20, temp 98.8, pulse ox 94% on 2 L. HEENT: Conjunctivae normal. Neck no jugular venous distention. Cardiovascular: S1, S2 muffled. Respiratory: Breath sounds diminished in the bases. Bilateral scattered rhonchi and crackles. ABDOMEN: Soft, nontender. Legs no edema and no swelling. Central nervous system: Higher functions as mentioned earlier. Moves all four extremities. No focal motor or sensory deficits. Lymphatics: No lymph nodes palpable in the neck, axillae or groin. SKIN: No ulcer, rash, bleeding. LAB STUDIES: At this time shows WBC 15.2, hemoglobin 13, other labs are noted. Glucose 128. ASSESSMENT: 1. Chronic obstructive pulmonary disease acute exacerbation with acute purulent tracheobronchitis with acute hypoxic respiratory failure with failure of outpatient treatment, present on admission. 2. History of asthma, chronic obstructive pulmonary disease. 3. History of nicotine dependence. 4. History of sleep apnea. 5. Anxiety. 6. Nephrolithiasis. 7. Chronic hypoxic respiratory failure. Uses CPAP at night. SUGGESTION/COMMENTS: Recommend to continue current medications, continue with monitoring, symptomatic treatment. Otherwise at this time, taper the steroids. Continue the bronchodilators, antibiotics. Closely follow with Dr. Reynoso. Guarded prognosis. Further recommendations to follow. MMODL / IJN: [id number] /
[2016-12-23] MEDS: methylPREDNISolone SOD SUCCI 40 MG/ML 1 ML VIAL IV SCH ×2 (00:08→10:19)
[2016-12-23] MEDS: IPRATROPIUM-ALBUTEROL 3 ML NEB INHALATION PRN (04:01)
[2016-12-23] MEDS: ALPRAZolam 0.5 MG TAB PO PRN (06:31)
[2016-12-23] MEDS: FORMOTEROL FUMARATE 20 MCG/2 ML NEBU INHALATION SCH (07:32)
[2016-12-23] MEDS: BUDESONIDE 1 MG/2 ML NEBU INHALATION SCH (07:32)
[2016-12-23] MEDS: IPRATROPIUM-ALBUTEROL 3 ML NEB INHALATION SCH ×2 (07:32→11:07)
[2016-12-23 07:44] VITALS: BP 124/79; RESP 18; TEMP 96.9
[2016-12-23 07:50] LABS: Basophils % (A) 0 %; CH 31.7; CHCM 33.8; Eosinophils % (A) 0 %; HCT 39.1 % (39.0-53.0); HDW 2.57; HGB 12.7 gm/dL (13.0-17.5); Luc # (Auto) 0.04; Luc % (Auto) 0; Lymphocytes # (A) 0.4 k/uL (1.0-4.8); Lymphocytes % (A) 3 %; MCH 30.6 pg (25.0-35.0); MCHC 32.4 g/dL (31.0-37.0); MCV 94.3 fL (80.0-100.0); Mean Platelet Volume 7.4; Monocytes # (A) 0.3 k/uL (0-1.0); Monocytes % (A) 3 %; Neutrophils # (A) 11.8 k/uL (1.3-7.7); Neutrophils % (A) 94 %; RBC 4.14 m/uL (4.30-5.90); RDW 13.7 % (11.5-15.5); WBC 12.5 k/uL (3.8-10.6); WBC (Perox) 12.82
[2016-12-23 08:37] LABS: Anion Gap 7 mmol/L; Blood Urea Nitrogen 14 mg/dL (9-20); Calcium 9.1 mg/dL (8.4-10.2); Carbon Dioxide 26 mmol/L (22-30); Chloride 105 mmol/L (98-107); Glucose 123 mg/dL (74-99); Non-African American GFR(MDRD) >60 (>60 ml/min/1.73 sqM); Sodium 138 mmol/L (137-145)
[2016-12-23] MEDS: PANTOPRAZOLE 40 MG TABLET PO SCH (08:53)
[2016-12-23] MEDS: HEPARIN SODIUM,PORCINE 5,000 UNIT/ML 1 ML VIAL SQ SCH (08:54)
[2016-12-23] MEDS: LORATADINE 10 MG TAB PO SCH (08:54)
[2016-12-23] MEDS: DOXYCYCLINE 50 MG CAP PO SCH (08:54)
[2016-12-23] MEDS: THEOPHYLLINE 24 HOUR 400 MG CAP.ER.24H PO SCH (08:55)
[2016-12-23] MEDS: NICOTINE 21MG/24HR PATCH TRANSDERM SCH (09:38)
[2016-12-23] MEDS: NON-FORMULARY DRUG (Roflumilast [Daliresp] 500 MCG) PO SCH (09:38)
[2016-12-23 11:26] VITALS: PULSE 72
--- NOTE | 2016-12-23 13:23 | P.PN ---
Subjective Progress Note Date: 12/23/16 Principal diagnosis: Acute exacerbation of COPD and acute on chronic hypoxic respiratory failure This is a 56-year-old white male with history of severe end-stage COPD, gold stage IV, O2 dependent but mostly on nocturnal oxygen, prednisone dependent maintained on 5 mg of prednisone daily. Patient is primarily a patient of Dr. Han, and I usually see him in the office on a regular basis. Patient is also known to history of obstructive sleep apnea, chronic anxiety, tobacco dependence syndrome, continues to smoke in spite of his underlying COPD. Patient was brought into the hospital yesterday with mostly increased shortness of breath, cough which is productive with yellow phlegm, wheezing, but no fever , no chills, no nausea, no vomiting, no abdominal pain, no melena, and no hematemesis. Patient's last admission to [facility] was back over a year ago. Patient is compliant with all his meds, however he believes the cold weather change has been a major contributing factor to his COPD exacerbation. Chest x-ray on admission showed no evidence of infiltrate. Patient was admitted, and this consult was initiated. On 12/23/2016 patient states significant improvement in his pulmonary status, less wheezing, less chest tightness. He states he is able to move more air, lung sounds are diminished, no rhonchi, no wheezes auscultated. Patient has had no fever since admission. At the time of evaluation he is on room air, in no acute distress. No cultures collected this admission. He is on doxycycline for empiric antibiotic coverage, Solu-Medrol, DuoNeb Pulmicort, Perforomist and theophylline. From pulmonary standpoint he is stable for discharge home today with follow-up in the office with Dr. Ho in 1 week. Objective - Vital Signs Vital signs: Vital Signs Temp 96.9 F L 12/23/16 07:43 Pulse 78 12/23/16 11:19 Resp 18 12/23/16 11:16 BP 124/79 12/23/16 07:43 Pulse Ox 95 12/23/16 07:43 Intake & Output 12/22/16 12/23/16 12/23/16 18:59 06:59 18:59 Intake Total 590 240 Balance 590 240 Weight 72.575 kg Intake: Oral 590 240 Other: Voiding Method Toilet Toilet Toilet Urinal Urinal # Voids 2 2 1 # Bowel Movements 1 - Labs CBC & Chem 7: 12/23/16 07:25 12/23/16 07:25 Labs: Abnormal Lab Results - Last 24 Hours (Table) 12/23/16 12/23/16 Range/Units 07:25 07:25 WBC 12.5 H (3.8-10.6) k/uL RBC 4.14 L (4.30-5.90) m/uL Hgb 12.7 L (13.0-17.5) gm/dL Neutrophils # 11.8 H (1.3-7.7) k/uL Lymphocytes # 0.4 L (1.0-4.8) k/uL Glucose 123 H (74-99) mg/dL Assessment and Plan Plan: Impression: 1 acute exacerbation of COPD and acute on chronic hypoxic respiratory failure. 2 history of tobacco dependence syndrome, patient was counseled over and over again regarding his smoking cessation. 3 history of chronic anxiety syndrome. 4 history of obstructive sleep apnea uses no to normal O2 and CPAP at night. 5 history of nephrolithiasis. Recommendation: Patient is doing well, much improved since admission. He seriously considering quitting smoking altogether, perhaps with the help of acupuncture, requested the names of local acupuncturists. Patient is stable for discharge home on outpatient course of doxycycline and maintenance inhalers and treatments forced his COPD. Follow-up in the office with Dr. Ho in 1 week I performed a history & physical examination of the patient and discussed their management with my nurse practitioner, Gay Fiore. I reviewed the nurse practitioner's note and agree with the documented findings and plan of care. Lung sounds are diminished, no rhonchi, no wheezes. Stable for discharge home, follow-up with Dr. Ho in 1 week. The findings and the impression was discussed with the patient. I attest to the documentation by the nurse practitioner. Time with Patient: Less than 30
--- NOTE | 2016-12-24 14:38 | P.DS ---
Providers Date of admission: 12/20/16 13:06 Expected date of discharge: 12/23/16 Attending physician: oDnna Stuart Consults: 12/20/16 13:06 Consult Physician Routine Consulting Provider: Radha Ho Consult Reason/Comments: COPD exacerbation Do you want consulting provider notified?: Yes Primary care physician: Naye Doll Hospital Course: Final Diagnoses: 1. Acute exacerbation COPD with acute purulent tracheobronchitis with acute hypoxic respiratory failure, failure of outpatient treatment 2. COPD, history of asthma 3. History of nicotine dependence 4. Sleep apnea 5. Anxiety 6. Nephrolithiasis 7. Chronic hypoxic respiratory failure Hospital course: This a 56-year-old gentleman admitted with acute COPD exacerbation with acute purulent tracheobronchitis, acute on chronic hypoxic respiratory failure and multiple other medical issues. Evaluated by pulmonary. Maintained on nebulized bronchodilators, steroids and antibiotics. Significant clinical improvement. Cleared by pulmonary for discharge. Patient is being discharged home in a stable condition with guarded prognosis. The impression and plan of care has been dictated as directed. : I performed a history and examination of this patient, discussed the same with the dictator. I agree with the dictator's note ,documented as a scribe. Any additional findings or plans will be noted. Patient Condition at Discharge: Stable Plan - Discharge Summary New Discharge Prescriptions: New Doxycycline [Vibramycin] 100 mg PO Q12HR 8 Days #16 capsule predniSONE 10 mg PO DAILY 16 Days #40 tab Nicotine 21Mg/24Hr Patch [Habitrol] 1 patch TRANSDERM DAILY #30 patch Pantoprazole [Protonix] 40 mg PO AC-BRKFST #15 tablet.dr Pablo Aclidinium [place] [Tudorza Pressair] 1 puff INHALATION RT-DAILY Fexofenadine HCl [Alaina Allergy] 180 mg PO DAILY Mometasone/Formoterol [Dulera 200 Mcg/5 Mcg Inhaler] 2 puff INHALATION RT-BID Roflumilast [Daliresp] 500 mcg PO DAILY Albuterol Nebulized [Ventolin Nebulized] 2.5 mg INHALATION RT-QID PRN PRN Reason: Shortness Of Breath Alendronate Sodium [Fosamax] 70 mg PO DE LA CRUZ Albuterol Sulfate [Proair Hfa] 2 puff INHALATION RT-QID PRN PRN Reason: Shortness Of Breath Theophylline Anhydrous [Uniphyl] 200 mg PO BID predniSONE 5 mg PO DAILY #0 Discharge Medication List Aclidinium [place] [Tudorza Pressair] 1 puff INHALATION RT-DAILY 09/14/13 [ History] Fexofenadine HCl [Alaina Allergy] 180 mg PO DAILY 03/21/15 [History] Mometasone/Formoterol [Dulera 200 Mcg/5 Mcg Inhaler] 2 puff INHALATION RT-BID [History] Albuterol Nebulized [Ventolin Nebulized] 2.5 mg INHALATION RT-QID PRN 08/26/15 [ History] Roflumilast [Daliresp] 500 mcg PO DAILY 08/26/15 [History] Albuterol Sulfate [Proair Hfa] 2 puff INHALATION RT-QID PRN 07/28/16 [History] Alendronate Sodium [Fosamax] 70 mg PO DE LA CRUZ 07/28/16 [History] Theophylline Anhydrous [Uniphyl] 200 mg PO BID 12/20/16 [History] Doxycycline [Vibramycin] 100 mg PO Q12HR 8 Days #16 capsule 12/23/16 [Rx] Nicotine 21Mg/24Hr Patch [Habitrol] 1 patch TRANSDERM DAILY #30 patch 12/23/16 [ Rx] Pantoprazole [Protonix] 40 mg PO AC-BRKFST #15 tablet. 12/23/16 [Rx] predniSONE 5 mg PO DAILY #0 12/23/16 [Rx] predniSONE 10 mg PO DAILY 16 Days #40 tab 12/23/16 [Rx] Follow up Appointment(s)/Referral(s): Radha Ho MD [STAFF PHYSICIAN] - 12/31/16 1:30 pm Naye Doll DO [Primary Care Provider] - 12/29/16 10:20 am Ambulatory/Diagnostic Orders: Complete Blood Count w/diff [LAB.AMB] Time Frame: 3 Days, Location: Determined By Patient Patient Instructions/Handouts: Prednisone (By mouth), Nicotine (Absorbed through the skin), Pantoprazole (By mouth), Sleep Apnea (GEN), COPD (Chronic Obstructive Pulmonary Disease) (DC), Anxiety (GEN) Activity/Diet/Wound Care/Special Instructions: no smoking o2 sat 93% on RA after ambulation Discharge Disposition: HOME SELF-CARE
== END 2016-12-23 14:08 | disposition home or self-care (01) | DRG 190 ==
LOC: EC 10:22 → 5MS5E 13:06
PROVIDERS: ADMIT Hospitalist; ATTEND Hospitalist
DX: J44.1 Chronic obstructive pulmonary disease with (acute) exacerbation (principal); J96.21 Acute and chronic respiratory failure with hypoxia; F17.200 Nicotine dependence, unspecified, uncomplicated; J20.9 Acute bronchitis, unspecified; J44.0 Chronic obstructive pulmonary disease with (acute) lower respiratory infection; F41.9 Anxiety disorder, unspecified; G47.33 Obstructive sleep apnea (adult) (pediatric); N20.0 Calculus of kidney; Z79.52 Long term (current) use of systemic steroids; Z79.83 Long term (current) use of bisphosphonates; Z79.899 Other long term (current) drug therapy
CPT/HCPCS: 36415; 71010; 80048; 80053; 82550; 82553; 82805; 83735; 83880; 84484; 85025; 85379; 85610; 85730; 87502; 93005; 94640; 94760; 96365; 96375; 99291

== ENCOUNTER 2017-02-22 11:54 | Inpatient (IN) | payer OTHER ==
[2017-02-22] MEDS ORDERED: SODIUM CHLORIDE 0.9% 1,000 ML IV STA (12:09)
[2017-02-22] MEDS ORDERED: MAGNESIUM SULFATE-D5W PMX 1 GM in DEXTROSE/WATER 1 100ML.BAG IVPB STA (12:09)
[2017-02-22] MEDS ORDERED: methylPREDNISolone SOD SUCCI 125 MG/2 ML VIAL IV STA (12:09)
[2017-02-22] MEDS ORDERED: IPRATROPIUM-ALBUTEROL 3 ML NEB INHALATION STA (12:09)
--- NOTE | 2017-02-22 12:14 | ED ---
SOB HPI - General Chief Complaint: Shortness of Breath Stated Complaint: SOB Time Seen by Provider: 02/22/17 12:00 Source: patient, RN notes reviewed Mode of arrival: ambulatory Limitations: no limitations - History of Present Illness Initial Comments: This is a 56-year-old male with a history of COPD who states she's had progressively worsening shortness of breath over last week or so he did have some antibiotics and he finished the other day. He saw his doctor 2 days ago was given an IM steroid shot states he's gotten worse not better. He has some chest tightness no overt fevers chills or sweats he also is had some rhinorrhea. He denies any other complaints at this time he states is very dyspneic. MD Complaint: shortness of breath - Related Data Home Medications Medication Instructions Recorded Confirmed Aclidinium [place] [Tudorza 1 puff INHALATION RT-DAILY 09/14/13 02/22/17 Pressair] Fexofenadine HCl [Alaina Allergy] 180 mg PO DAILY 03/21/15 02/22/17 Mometasone/Formoterol [Dulera 200 2 puff INHALATION RT-BID 03/21/15 02/22/17 Mcg/5 Mcg Inhaler] Albuterol Nebulized [Ventolin 2.5 mg INHALATION RT-QID PRN 08/26/15 02/22/17 Nebulized] Roflumilast [Daliresp] 500 mcg PO DAILY 08/26/15 02/22/17 Albuterol Sulfate [Proair Hfa] 2 puff INHALATION RT-QID PRN 07/28/16 02/22/17 Alendronate Sodium [Fosamax] 70 mg PO DE LA CRUZ 07/28/16 02/22/17 Theophylline Anhydrous [Uniphyl] 200 mg PO BID 12/20/16 02/22/17 predniSONE See Taper PO DAILY 02/22/17 02/22/17 Previous Rx's Medication Instructions Recorded Pantoprazole [Protonix] 40 mg PO AC-BRKFST #15 tablet. 12/23/16 predniSONE 5 mg PO DAILY #0 12/23/16 Allergies Allergy/AdvReac Type Severity Reaction Status Date / Time No Known Allergies Allergy Verified 02/22/17 12:43 Review of Systems ROS Statement: Those systems with pertinent positive or pertinent negative responses have been documented in the HPI. ROS Other: All systems not noted in ROS Statement are negative. Past Medical History Past Medical History: Asthma, COPD, Sleep Apnea/CPAP/BIPAP Additional Past Medical History / Comment(s): kidney stones, CPAP/oxygen at night. History of Any Multi-Drug Resistant Organisms: None Reported Past Surgical History: Hernia Repair Additional Past Surgical History / Comment(s): . Past Anesthesia/Blood Transfusion Reactions: No Reported Reaction Additional Past Anesthesia/Blood Transfusion Reaction / Comment(s): no blood transfusions Past Psychological History: Anxiety Smoking Status: Current every day smoker Past Alcohol Use History: Occasional Past Drug Use History: None Reported - Past Family History Father Family Medical History: COPD Additional Family Medical History / Comment(s): of lung cancer Mother Family Medical History: Asthma General Exam - General Exam Comments Initial Comments: This is a well-developed well-nourished awake alert oriented times 3 male Limitations: no limitations General appearance: alert, in no apparent distress, anxious, in distress Head exam: Present: atraumatic, normocephalic, normal inspection Eye exam: Present: normal appearance, PERRL, EOMI. Absent: scleral icterus, conjunctival injection, periorbital swelling ENT exam: Present: normal exam, mucous membranes moist Neck exam: Present: normal inspection. Absent: tenderness, meningismus, lymphadenopathy Respiratory exam: Present: respiratory distress, wheezes, accessory muscle use, decreased breath sounds Cardiovascular Exam: Present: tachycardia GI/Abdominal exam: Present: soft, normal bowel sounds. Absent: distended, tenderness, guarding, rebound, rigid Extremities exam: Present: normal inspection, full ROM, normal capillary refill. Absent: tenderness, pedal edema, joint swelling, calf tenderness Back exam: Present: normal inspection Neurological exam: Present: alert, oriented X3, CN II-XII intact Psychiatric exam: Present: normal affect, normal mood Skin exam: Present: warm, dry, intact, normal color. Absent: rash Course Vital Signs 02/22/17 02/22/17 02/22/17 11:56 12:29 12:39 Temperature 97.9 F Pulse Rate 114 H 107 H 104 H Respiratory 28 H 50 H 37 H Rate Blood Pressure 138/84 O2 Sat by Pulse 93 L Oximetry 02/22/17 13:22 Temperature Pulse Rate 103 H Respiratory 32 H Rate Blood Pressure 145/92 O2 Sat by Pulse 99 Oximetry - Reevaluation(s) Reevaluation #1: 02/22/17 15:01 I did reevaluate patient several occasions he is tolerating BiPAP well. He is feeling improved. Medical Decision Making - Lab Data Result diagrams: 02/22/17 12:05 02/22/17 12:05 Lab Results 02/22/17 02/22/17 02/22/17 Range/Units 12:05 12:05 12:05 WBC 8.8 (3.8-10.6) k/uL RBC 4.79 (4.30-5.90) m/uL Hgb 14.8 (13.0-17.5) gm/dL Hct 47.1 (39.0-53.0) % MCV 98.4 (80.0-100.0) fL MCH 30.8 (25.0-35.0) pg MCHC 31.3 (31.0-37.0) g/dL RDW 15.0 (11.5-15.5) % Plt Count 170 (150-450) k/uL Neutrophils % 78 % Lymphocytes % 12 % Monocytes % 7 % Eosinophils % 0 % Basophils % 1 % Neutrophils # 6.9 (1.3-7.7) k/uL Lymphocytes # 1.1 (1.0-4.8) k/uL Monocytes # 0.6 (0-1.0) k/uL Eosinophils # 0.0 (0-0.7) k/uL Basophils # 0.0 (0-0.2) k/uL PT (9.0-12.0) sec INR (<1.2) APTT (22.0-30.0) sec D-Dimer (<0.60) mg/L FEU Sodium 145 (137-145) mmol/L Potassium 4.3 (3.5-5.1) mmol/L Chloride 106 (98-107) mmol/L Carbon Dioxide 31 H (22-30) mmol/L Anion Gap 8 mmol/L BUN 18 (9-20) mg/dL Creatinine 0.90 (0.66-1.25) mg/dL Est GFR (MDRD) Af Amer >60 (>60 ml/min/1.73 sqM) Est GFR (MDRD) Non-Af >60 (>60 ml/min/1.73 sqM) Glucose 97 (74-99) mg/dL Plasma Lactic Acid Joao (0.7-2.0) mmol/L Calcium 8.9 (8.4-10.2) mg/dL Magnesium 2.3 (1.6-2.3) mg/dL Total Bilirubin 0.3 (0.2-1.3) mg/dL AST 29 (17-59) U/L ALT 40 (21-72) U/L Alkaline Phosphatase 48 (38-126) U/L Total Creatine Kinase 164 (55-170) U/L CK-MB (CK-2) 7.1 H* (0.0-2.4) ng/mL CK-MB (CK-2) Rel Index 4.3 Troponin I <0.012 (0.000-0.034) ng/mL NT-Pro-B Natriuret Pep pg/mL Total Protein 6.2 L (6.3-8.2) g/dL Albumin 3.9 (3.5-5.0) g/dL 02/22/17 02/22/17 02/22/17 Range/Units 12:05 12:05 12:05 WBC (3.8-10.6) k/uL RBC (4.30-5.90) m/uL Hgb (13.0-17.5) gm/dL Hct (39.0-53.0) % MCV (80.0-100.0) fL MCH (25.0-35.0) pg MCHC (31.0-37.0) g/dL RDW (11.5-15.5) % Plt Count (150-450) k/uL Neutrophils % % Lymphocytes % % Monocytes % % Eosinophils % % Basophils % % Neutrophils # (1.3-7.7) k/uL Lymphocytes # (1.0-4.8) k/uL Monocytes # (0-1.0) k/uL Eosinophils # (0-0.7) k/uL Basophils # (0-0.2) k/uL PT 9.9 (9.0-12.0) sec INR 1.0 (<1.2) APTT 22.1 (22.0-30.0) sec D-Dimer 0.55 (<0.60) mg/L FEU Sodium (137-145) mmol/L Potassium (3.5-5.1) mmol/L Chloride (98-107) mmol/L Carbon Dioxide (22-30) mmol/L Anion Gap mmol/L BUN (9-20) mg/dL Creatinine (0.66-1.25) mg/dL Est GFR (MDRD) Af Amer (>60 ml/min/1.73 sqM) Est GFR (MDRD) Non-Af (>60 ml/min/1.73 sqM) Glucose (74-99) mg/dL Plasma Lactic Acid Joao 1.7 (0.7-2.0) mmol/L Calcium (8.4-10.2) mg/dL Magnesium (1.6-2.3) mg/dL Total Bilirubin (0.2-1.3) mg/dL AST (17-59) U/L ALT (21-72) U/L Alkaline Phosphatase (38-126) U/L Total Creatine Kinase (55-170) U/L CK-MB (CK-2) (0.0-2.4) ng/mL CK-MB (CK-2) Rel Index Troponin I (0.000-0.034) ng/mL NT-Pro-B Natriuret Pep 43 pg/mL Total Protein (6.3-8.2) g/dL Albumin (3.5-5.0) g/dL - EKG Data -: EKG Interpreted by Me (Sinus tachycardia rate of 108. Interval 144 QRS 94 QT since QTC of 354/474) - Radiology Data Radiology results: report reviewed (I did review the imaging and reports no acute findings.), image reviewed Critical Care Time Critical Care Time: Yes Critical Care Time: 37 minutes of critical care time which was initial presentation with history physical labs x-rays several reevaluation of the patient to responsive therapy. Discussion with the admitting physician admission orders and documentation of the above Disposition Clinical Impression: Acute exacerbation of chronic obstructive airways disease, Adult respiratory distress syndrome Disposition: ADMITTED IP TO THIS HOSP Condition: Stable Referrals: Naye Doll DO [Primary Care Provider] - 1-2 days
[2017-02-22] MEDS ORDERED: LORazepam 2 MG/ML INJ IV STA (12:24)
[2017-02-22 13:10] LABS: D-Dimer 0.55 mg/L FEU (<0.60)
--- NOTE | 2017-02-22 13:12 | XR ---
EXAMINATION TYPE: XR chest 1V portable DATE OF EXAM: 02/22/2017 HISTORY: difficulty breathing. REFERENCE: Previous study dated 12/20/2016. FINDINGS: Lung volumes are prominent. Heart size is upper limits of normal. The lungs are clear. Ther e is blunting of the left CP angle. I could not exclude a tiny effusion. IMPRESSION: 1. COPD. 2. BORDERLINE CARDIOMEGALY. 3. I COULD NOT EXCLUDE A TINY, LEFT-SIDED EFFUSION.
[2017-02-22 13:13] LABS: ALT 40 U/L (21-72); AST 29 U/L (17-59); Albumin 3.9 g/dL (3.5-5.0); Alkaline Phosphatase 48 U/L (38-126); Anion Gap 8 mmol/L; Blood Urea Nitrogen 18 mg/dL (9-20); Calcium 8.9 mg/dL (8.4-10.2); Carbon Dioxide 31 mmol/L (22-30); Chloride 106 mmol/L (98-107); Glucose 97 mg/dL (74-99); Magnesium 2.3 mg/dL (1.6-2.3); Potassium 4.3 mmol/L (3.5-5.1); Sodium 145 mmol/L (137-145); Total Bilirubin 0.3 mg/dL (0.2-1.3); Total Protein 6.2 g/dL (6.3-8.2)
[2017-02-22 13:17] LABS: Prothrombin Time 9.9 sec (9.0-12.0)
[2017-02-22 13:20] LABS: Basophils % (A) 1 %; Eosinophils % (A) 0 %; HCT 47.1 % (39.0-53.0); HGB 14.8 gm/dL (13.0-17.5); Lymphocytes # (A) 1.1 k/uL (1.0-4.8); Lymphocytes % (A) 12 %; MCH 30.8 pg (25.0-35.0); MCHC 31.3 g/dL (31.0-37.0); MCV 98.4 fL (80.0-100.0); Mean Platelet Volume 8.4; Monocytes # (A) 0.6 k/uL (0-1.0); Monocytes % (A) 7 %; Neutrophils # (A) 6.9 k/uL (1.3-7.7); Neutrophils % (A) 78 %; Platelet Count 170 k/uL (150-450); RBC 4.79 m/uL (4.30-5.90); WBC 8.8 k/uL (3.8-10.6)
[2017-02-22 13:21] LABS: Partial Thromboplastin Time 22.1 sec (22.0-30.0)
[2017-02-22 13:23] LABS: Creatine Kinase 164 U/L (55-170)
[2017-02-22 13:35] LABS: Troponin I <0.012 ng/mL (0.000-0.034)
[2017-02-22 13:36] LABS: Creatine Kinase MB 7.1 ng/mL (0.0-2.4)
[2017-02-22] MEDS ORDERED: PATIENT'S OWN MED (Alendronate Sodium [Fosamax] 70 MG) PO SCH (15:15)
[2017-02-22] MEDS: IPRATROPIUM-ALBUTEROL 3 ML NEB INHALATION SCH ×3 (17:28→23:32)
[2017-02-22] MEDS: SODIUM CHLORIDE 0.9% 1,000 ML IV SCH (19:32)
[2017-02-22] MEDS: methylPREDNISolone SOD SUCCI 125 MG/2 ML VIAL IV SCH ×2 (19:49→22:59)
[2017-02-22] MEDS: THEOPHYLLINE 24 HOUR 400 MG CAP.ER.24H PO SCH (19:49)
[2017-02-22] MEDS: ALPRAZolam 0.25 MG TAB PO PRN (22:59)
--- NOTE | 2017-02-23 00:22 | P.HPIM ---
History of Present Illness H&P Date: 02/22/17 Chief Complaint: Shortness of breath Patient is a 56-year-old male with a history of COPD , obstructive sleep apnea on CPAP at home, renal stones and active nicotine addiction who states she's had progressively worsening shortness of breath over last 2 week or so he did have some antibiotics and he finished the other day. He saw his doctor 2 days ago was given an IM steroid shot states he's gotten worse not better. He has some chest tightness. no overt fevers chills or sweats he also is had some rhinorrhea. Patient was in acute respiratory distress on admission and was placed on BiPAP. Currently patient is awake and oriented. No recent travel or sick contacts at home. No complaints of chest pain. No nausea vomiting or abdominal pain. Chest x-ray showed COPD and cardiomegaly EKG showed sinus tachycardia Review of Systems Constitutional: Patient denies any fever or chills . No generalized weakness or weight loss. Abdomen: Patient denied nausea vomiting and diarrhea and abdominal pain. Cardiovascular: Patient denies any chest pain .h no palpitations. Respiratory: Cough without sputum production. Shortness of breath. Neurologic: Patient denied any numbness or tingling headache. Musculoskeletal: Patient denies any complaints of joint swelling or deformity. Skin: Negative Psychiatric: Negative Endocrine: No heat or cold intolerance. No recent weight gain. Genitourinary: No dysuria or hematuria. All other 14 point ROS negative except the above Past Medical History Past Medical History: Asthma, COPD, Sleep Apnea/CPAP/BIPAP Additional Past Medical History / Comment(s): kidney stones, CPAP/oxygen at night. History of Any Multi-Drug Resistant Organisms: None Reported Past Surgical History: Hernia Repair Additional Past Surgical History / Comment(s): . Past Anesthesia/Blood Transfusion Reactions: No Reported Reaction Additional Past Anesthesia/Blood Transfusion Reaction / Comment(s): no blood transfusions Past Psychological History: Anxiety Additional Psychological History / Comment(s): anxiety with shortness of breath. Smoking Status: Current every day smoker Past Alcohol Use History: Occasional Past Drug Use History: None Reported Additional Drug Use History / Comment(s): . - Past Family History Father Family Medical History: COPD Additional Family Medical History / Comment(s): of lung cancer Mother Family Medical History: Asthma Medications and Allergies Home Medications Medication Instructions Recorded Confirmed Type Aclidinium [place] [Tudorza 1 puff INHALATION RT-DAILY 09/14/13 02/22/17 History Pressair] Fexofenadine HCl [Alaina Allergy] 180 mg PO DAILY 03/21/15 02/22/17 History Mometasone/Formoterol [Dulera 200 2 puff INHALATION RT-BID 03/21/15 02/22/17 History Mcg/5 Mcg Inhaler] Albuterol Nebulized [Ventolin 2.5 mg INHALATION RT-QID PRN 08/26/15 02/22/17 History Nebulized] Roflumilast [Daliresp] 500 mcg PO DAILY 08/26/15 02/22/17 History Albuterol Sulfate [Proair Hfa] 2 puff INHALATION RT-QID PRN 07/28/16 02/22/17 History Alendronate Sodium [Fosamax] 70 mg PO DE LA CRUZ 07/28/16 02/22/17 History Theophylline Anhydrous [Uniphyl] 200 mg PO BID 12/20/16 02/22/17 History Pantoprazole [Protonix] 40 mg PO AC-BRKFST #15 tablet. 12/23/16 02/22/17 Rx predniSONE 5 mg PO DAILY #0 12/23/16 02/22/17 Rx predniSONE See Taper PO DAILY 02/22/17 02/22/17 History Allergies Allergy/AdvReac Type Severity Reaction Status Date / Time No Known Allergies Allergy Verified 02/22/17 12:43 Physical Exam Vitals: Vital Signs Temp Pulse Pulse Resp BP BP Pulse Ox 02/22/17 20:40 104 H 02/22/17 20:31 99 02/22/17 18:55 97.2 F L 98 16 136/89 99 02/22/17 18:00 90 16 151/86 99 02/22/17 17:41 103 H 02/22/17 17:31 100 02/22/17 17:04 102 H 29 H 158/87 94 L 02/22/17 16:34 92 29 H 152/97 98 02/22/17 16:04 89 32 H 146/88 97 02/22/17 15:55 97.6 F 100 26 H 135/88 99 02/22/17 15:16 97 29 H 139/100 99 02/22/17 13:22 103 H 32 H 145/92 99 02/22/17 12:39 104 H 37 H 02/22/17 12:29 107 H 50 H 02/22/17 11:56 97.9 F 114 H 28 H 138/84 93 L Intake and Output 02/22/17 02/22/17 02/22/17 06:59 14:59 22:59 Other: Weight 71.214 kg 71.3 kg Patient Weight 02/23/17 06:59 Weight 71.3 kg PHYSICAL EXAMINATION: Patient is lying in the bed comfortably, mild distress, awake alert and oriented.. HEENT: Normocephalic. Neck is supple. Pupils reactive. Nostrils clear. Oral cavity is moist. Ears reveal no drainage. Neck reveals no JVD, carotid bruits, or thyromegaly. CHEST EXAMINATION: Trachea is central. Symmetrical expansion. Diffuse wheezing and diminished air entry bilaterally CARDIAC: Normal S1, S2 with no gallops. No murmurs ABDOMEN: Soft. Bowel sounds normal. No organomegaly. No abdominal bruits. Extremities: reveal no edema. No clubbing or cyanosis Neurologically awake, alert, oriented x3 with well-coordinated movements. No focal deficits noted Skin: No rash or skin lesions. Psychiatric: Coperative. Nonsuicidal Musculoskeletal: No joint swelling or deformity. Normal range of motion. Results CBC & Chem 7: 02/22/17 12:05 02/22/17 12:05 Labs: Abnormal Lab Results - Last 24 Hours (Table) 02/22/17 02/22/17 Range/Units 12:05 12:05 Carbon Dioxide 31 H (22-30) mmol/L CK-MB (CK-2) 7.1 H* (0.0-2.4) ng/mL Total Protein 6.2 L (6.3-8.2) g/dL Thrombosis Risk Factor Assmnt - DVT/VTE Prophylaxis DVT/VTE Prophylaxis: Pharmacologic Prophylaxis ordered - Choose All That Apply Any of the Below Risk Factors Present?: Yes Each Factor Represents 1 point: Abnormal pulmonary function (COPD), Age 41-60 years Other Risk Factors: No Other congenital or acquired thrombophilia - If yes, enter type in comment: No Thrombosis Risk Factor Assessment Total Risk Factor Score: 2 Thrombosis Risk Factor Assessment Level: Low Risk Assessment and Plan Assessment: Acute respiratory distress on admission. Requiring BiPAP Acute COPD exacerbation Obstructive sleep apnea on CPAP at home Anxiety Active nicotine addiction DVT prophylaxis Plan: Patient will be continued on methylprednisolone along with breathing treatments. Continue with BiPAP. Pulmonary was consulted. We'll continue with the current management and further recommendations based on the clinical course. Smoking cessation was counseled extensively. Time with Patient: Greater than 30
[2017-02-23] MEDS: IPRATROPIUM-ALBUTEROL 3 ML NEB INHALATION SCH ×6 (03:53→23:22)
[2017-02-23] MEDS: methylPREDNISolone SOD SUCCI 125 MG/2 ML VIAL IV SCH ×4 (05:06→22:57)
[2017-02-23] MEDS: PANTOPRAZOLE 40 MG TABLET PO SCH (06:15)
[2017-02-23] MEDS: HEPARIN SODIUM,PORCINE 5,000 UNIT/ML 1 ML VIAL SQ SCH ×2 (08:11→20:17)
[2017-02-23] MEDS: PATIENT'S OWN MED (Roflumilast [Daliresp] 500 MCG) PO SCH (08:11)
[2017-02-23] MEDS: LORATADINE 10 MG TAB PO SCH (08:11)
[2017-02-23] MEDS: ALPRAZolam 0.25 MG TAB PO PRN ×3 (08:52→22:57)
[2017-02-23] MEDS ORDERED: cefTRIAXone IN SWFI 1,000 MG/10 ML SYRINGE IVP SCH (13:30)
[2017-02-23] MEDS: AZITHROMYCIN 500 MG TAB PO SCH (14:00)
--- NOTE | 2017-02-23 15:30 | P.CNPUL ---
History of Present Illness Consult date: 02/23/17 Reason for consult: dyspnea, COPD Chief complaint: Shortness of breath History of present illness: Consult dated 02/23/2017 This is a 56-year-old male who sees one of my partners for COPD. He comes in with about 3 days worth of increasing progressive shortness of breath. The shortness of breath has progressed to the point where he is very short of breath even at rest. Initially it was with exertion only. He apparently went and saw his primary doctor. His primary doctor gave him a steroid shot and some oral prednisone. In addition he has some oral antibiotic. Despite all of that, he was much is not much better and he came in to be evaluated. In addition, he is complaining of cough. He was coughing up a small amount of phlegm. Not a lot. It did have some color to it. There is no fever or chills. No nausea vomiting or diarrhea. He was wheezing. Lots of chest congestion and chest tightness. In addition to severe COPD, he has a history of sleep apnea for which he uses CPAP/BiPAP. In addition he has kidney stones and a previous hernia repair. His ALLERGIES are denied. His medications are reviewed. Review of Systems A 12 point review of system is positive for profound shortness of breath. He also has chest congestion and tightness. He is coughing. Producing some phlegm. The phlegm is slight color to it. He's not coughing up any blood. There is no nausea vomiting or diarrhea. No fever or chills. Past Medical History Past Medical History: Asthma, COPD, Sleep Apnea/CPAP/BIPAP Additional Past Medical History / Comment(s): kidney stones, CPAP/oxygen at night. History of Any Multi-Drug Resistant Organisms: None Reported Past Surgical History: Hernia Repair Additional Past Surgical History / Comment(s): . Past Anesthesia/Blood Transfusion Reactions: No Reported Reaction Additional Past Anesthesia/Blood Transfusion Reaction / Comment(s): no blood transfusions Past Psychological History: Anxiety Additional Psychological History / Comment(s): anxiety with shortness of breath. Smoking Status: Current every day smoker Past Alcohol Use History: Occasional Past Drug Use History: None Reported Additional Drug Use History / Comment(s): . - Past Family History Father Family Medical History: COPD Additional Family Medical History / Comment(s): of lung cancer Mother Family Medical History: Asthma Medications and Allergies Home Medications Medication Instructions Recorded Confirmed Type Aclidinium [place] [Tudorza 1 puff INHALATION RT-DAILY 09/14/13 02/22/17 History Pressair] Fexofenadine HCl [Alaina Allergy] 180 mg PO DAILY 03/21/15 02/22/17 History Mometasone/Formoterol [Dulera 200 2 puff INHALATION RT-BID 03/21/15 02/22/17 History Mcg/5 Mcg Inhaler] Albuterol Nebulized [Ventolin 2.5 mg INHALATION RT-QID PRN 08/26/15 02/22/17 History Nebulized] Roflumilast [Daliresp] 500 mcg PO DAILY 08/26/15 02/22/17 History Albuterol Sulfate [Proair Hfa] 2 puff INHALATION RT-QID PRN 07/28/16 02/22/17 History Alendronate Sodium [Fosamax] 70 mg PO [place] 07/28/16 02/22/17 History Theophylline Anhydrous [Uniphyl] 200 mg PO BID 12/20/16 02/22/17 History Pantoprazole [Protonix] 40 mg PO AC-BRKFST #15 tablet. 12/23/16 02/22/17 Rx predniSONE 5 mg PO DAILY #0 12/23/16 02/22/17 Rx predniSONE See Taper PO DAILY 02/22/17 02/22/17 History Allergies Allergy/AdvReac Type Severity Reaction Status Date / Time No Known Allergies Allergy Verified 02/22/17 12:43 Physical Exam Osteopathic Statement: *. No significant issues noted on an osteopathic structural exam other than those noted in the History and Physical/Consult. Vitals: Vital Signs Temp Pulse Pulse Resp BP BP Pulse Ox 02/23/17 11:39 82 95 16 138/76 99 02/23/17 11:35 95 16 02/23/17 11:30 80 02/23/17 09:18 18 97 02/23/17 08:30 92 02/23/17 08:20 88 02/23/17 08:10 97 F L 76 18 143/82 99 02/23/17 04:05 86 02/23/17 04:00 97.9 F 96 21 148/93 100 02/23/17 03:54 92 02/23/17 00:00 97.3 F L 91 25 H 132/84 99 02/22/17 23:48 83 02/22/17 23:32 81 02/22/17 20:40 104 H 02/22/17 20:31 99 02/22/17 20:00 97.6 F 100 26 H 135/88 99 02/22/17 18:55 97.2 F L 98 16 136/89 99 02/22/17 18:00 90 16 151/86 99 02/22/17 17:41 103 H 02/22/17 17:31 100 02/22/17 17:04 102 H 29 H 158/87 94 L 02/22/17 16:34 92 29 H 152/97 98 02/22/17 16:04 89 32 H 146/88 97 02/22/17 15:55 97.6 F 100 26 H 135/88 99 Intake and Output 02/23/17 02/23/17 02/23/17 06:59 14:59 22:59 Intake Total 200 Output Total 500 Balance -300 Intake: Oral 200 Output: Urine 500 Other: Voiding Method Toilet Toilet Urinal Urinal # Voids 1 2 Weight 70.6 kg The patient is quite short of breath. He does have significant dyspnea and tachypnea., He is oriented 3. HEENT examination is grossly unremarkable. Mucous membranes are moist. No oral lesions. The BiPAP mask is in place. Neck supple. Full range of motion. No adenopathy thyromegaly or neck vein distention. Cardiovascular examination reveals regular rhythm rate. S1-S2 normal. No S3 or S4. No discernible murmur noted. Lungs reveal significant wheezes rhonchi and crackles. Breath sounds are profoundly diminished. There is prolongation on forced maneuver. The patient coughs and wheezes on forced maneuver. Abdomen soft bowel sounds are heard. No masses or tenderness. Extremities are intact. No cyanosis clubbing or edema. Skin is without rash or lesion. Neurologic examination is brief but nonfocal. Results - Laboratory Findings CBC and BMP: 02/22/17 12:05 02/22/17 12:05 PT/INR, D-dimer PT 9.9 sec (9.0-12.0) 02/22/17 12:05 INR 1.0 (<1.2) 02/22/17 12:05 D-Dimer 0.55 mg/L FEU (<0.60) 02/22/17 12:05 Abnormal lab findings: Abnormal Labs 02/22/17 02/22/17 12:05 12:05 Carbon Dioxide 31 H CK-MB (CK-2) 7.1 H* Total Protein 6.2 L - Diagnostic Findings Chest x-ray: image reviewed (Chest x-ray labs and medications are all reviewed.) Assessment and Plan (1) Acute exacerbation of chronic obstructive airways disease Current Visit: Yes Status: Acute Code(s): J44.1 - CHRONIC OBSTRUCTIVE PULMONARY DISEASE W (ACUTE) EXACERBATION SNOMED Code(s): 735334739 (2) Acute respiratory failure Current Visit: No Status: Acute Code(s): J96.00 - ACUTE RESPIRATORY FAILURE , UNSP W HYPOXIA OR HYPERCAPNIA SNOMED Code(s): 71989060 (3) Anxiety Current Visit: No Status: Acute Code(s): F41.9 - ANXIETY DISORDER, UNSPECIFIED SNOMED Code(s): 76788972 (4) Asthma with status asthmaticus Current Visit: No Status: Acute Code(s): J45.902 - UNSPECIFIED ASTHMA WITH STATUS ASTHMATICUS SNOMED Code(s): 321122168 (5) Hypoxemia Current Visit: No Status: Acute Code(s): R09.02 - HYPOXEMIA SNOMED Code(s) : 162954962 (6) Sleep apnea syndrome Current Visit: No Status: Acute Code(s): G47.30 - SLEEP APNEA, UNSPECIFIED SNOMED Code(s): 07897057 (7) Smoking Current Visit: No Status: Acute Code(s): F17.200 - NICOTINE DEPENDENCE, UNSPECIFIED, UNCOMPLICATED SNOMED Code(s): 29593494 Plan: Plan dated 02/23/2017 The patient's COPD is quite severe. He is going between nasal O2 and his BiPAP device. We'll check his medications and make sure he is on all appropriate medications. Prognosis is guarded. The patient be follow very closely. He may end up in the intensive care unit. Time with Patient: Greater than 30
[2017-02-23] MEDS: SODIUM CHLORIDE 0.9% 1,000 ML IV SCH (16:30)
[2017-02-23 17:01] LABS: Glucose,Whole Blood 197 mg/dL (75-99)
[2017-02-23] MEDS: INSULIN ASPART 100 UNIT/ML 1 ML 10 ML VIAL SQ SCH ×2 (17:21→21:19)
[2017-02-23] MEDS: BUDESONIDE 1 MG/2 ML NEBU INHALATION SCH (19:54)
[2017-02-23] MEDS: FORMOTEROL FUMARATE 20 MCG/2 ML NEBU INHALATION SCH (19:54)
[2017-02-23] MEDS: THEOPHYLLINE 24 HOUR 400 MG CAP.ER.24H PO SCH (20:17)
[2017-02-23 20:51] LABS: Glucose,Whole Blood 141 mg/dL (75-99)
--- NOTE | 2017-02-24 00:48 | P.PN ---
Subjective Progress Note Date: 02/23/17 Principal diagnosis: Acute COPD exacerbation Patient is a 56-year-old male with a history of COPD , obstructive sleep apnea on CPAP at home, renal stones and active nicotine addiction who states she's had progressively worsening shortness of breath over last 2 week or so he did have some antibiotics and he finished the other day. He saw his doctor 2 days ago was given an IM steroid shot states he's gotten worse not better. He has some chest tightness. no overt fevers chills or sweats he also is had some rhinorrhea. Patient was in acute respiratory distress on admission and was placed on BiPAP. Currently patient is awake and oriented. No recent travel or sick contacts at home. No complaints of chest pain. No nausea vomiting or abdominal pain. Chest x-ray showed COPD and cardiomegaly EKG showed sinus tachycardia On 02/23/2017 Patient is still requiring BiPAP and also having significant wheezing. No fever chills. No complaints of chest pain. No nausea vomiting or abdominal pain. Patien will be continued on IV steroids and DuoNeb's. Pulmicort and Perforomist as been added. All other review of systems negative except the above current medications reviewed Objective - Vital Signs Vital signs: Vital Signs Temp 97 F L 02/23/17 08:10 Pulse 95 02/23/17 11:39 Resp 16 02/23/17 11:39 BP 138/76 02/23/17 11:39 Pulse Ox 99 02/23/17 11:39 Intake & Output 02/22/17 02/23/17 02/23/17 18:59 06:59 18:59 Intake Total 400 Output Total 500 Balance -100 Weight 71.3 kg 70.6 kg Intake: Intake, IV Titration 200 Amount Magnesium Sulfate-D5w Pmx 100 1 gm In Dextrose/Water 1 100ml.bag @ 100 mls/hr IVPB ONCE STA Rx#: [id number] Sodium Chloride 0.9% 1, 100 000 ml @ 100 mls/hr IV . Q10H STA Rx#:[id number] Oral 200 Output: Urine 500 Other: Voiding Method Toilet Toilet Urinal Urinal # Voids 1 - Exam PHYSICAL EXAMINATION: Patient is lying in the bed comfortably, no acute distress, awake alert and oriented. Anxious.. HEENT: Normocephalic. Neck is supple. Pupils reactive. Nostrils clear. Oral cavity is moist. Ears reveal no drainage. Neck reveals no JVD, carotid bruits, or thyromegaly. CHEST EXAMINATION: Trachea is central. Symmetrical expansion. Bilateral decreased air entry and diffuse wheezing CARDIAC: Normal S1, S2 with no gallops. No murmurs ABDOMEN: Soft. Bowel sounds normal. No organomegaly. No abdominal bruits. Extremities: reveal no edema. No clubbing or cyanosis Neurologically awake, alert, oriented x3 with well-coordinated movements. No focal deficits noted Skin: No rash or skin lesions. Psychiatric: Cooperative. Nonsuicidal Musculoskeletal: No joint swelling or deformity. Normal range of motion. - Labs CBC & Chem 7: 02/22/17 12:05 02/22/17 12:05 Labs: Abnormal Lab Results - Last 24 Hours (Table) 02/22/17 02/22/17 Range/Units 12:05 12:05 Carbon Dioxide 31 H (22-30) mmol/L CK-MB (CK-2) 7.1 H* (0.0-2.4) ng/mL Total Protein 6.2 L (6.3-8.2) g/dL Assessment and Plan Assessment: Acute respiratory failure on admission. Requiring BiPAP Acute COPD exacerbation Obstructive sleep apnea on CPAP at home Severe COPD Anxiety Active nicotine addiction DVT prophylaxis Plan: Patient will be continued on methylprednisolone along with breathing treatments. Continue with BiPAP. Pulmonary is following. Continue with azithromycin.. We'll continue with the current management and further recommendations based on the clinical course. Smoking cessation was counseled extensively. Time with Patient: Greater than 30
[2017-02-24] MEDS: IPRATROPIUM-ALBUTEROL 3 ML NEB INHALATION SCH ×5 (03:20→20:43)
[2017-02-24 05:41] LABS: Glucose,Whole Blood 142 mg/dL (75-99)
[2017-02-24] MEDS: methylPREDNISolone SOD SUCCI 125 MG/2 ML VIAL IV SCH ×4 (06:04→22:56)
[2017-02-24] MEDS: PANTOPRAZOLE 40 MG TABLET PO SCH (06:04)
[2017-02-24] MEDS: INSULIN ASPART 100 UNIT/ML 1 ML 10 ML VIAL SQ SCH ×4 (06:06→21:18)
[2017-02-24] MEDS: BUDESONIDE 1 MG/2 ML NEBU INHALATION SCH ×2 (07:09→20:43)
[2017-02-24] MEDS: FORMOTEROL FUMARATE 20 MCG/2 ML NEBU INHALATION SCH ×2 (07:09→20:43)
[2017-02-24] MEDS: LORATADINE 10 MG TAB PO SCH (07:34)
[2017-02-24] MEDS: AZITHROMYCIN 500 MG TAB PO SCH (07:34)
[2017-02-24] MEDS: ALPRAZolam 0.25 MG TAB PO PRN ×2 (07:34→17:37)
[2017-02-24] MEDS: HEPARIN SODIUM,PORCINE 5,000 UNIT/ML 1 ML VIAL SQ SCH ×2 (07:34→19:30)
[2017-02-24] MEDS: PATIENT'S OWN MED (Roflumilast [Daliresp] 500 MCG) PO SCH (07:38)
[2017-02-24 11:51] LABS: Glucose,Whole Blood 169 mg/dL (75-99)
[2017-02-24 12:10] LABS: ABG HCO3 29 mmol/L (21-25); ABG PCO2 42 mmHg (35-45); ABG PH 7.44 (7.35-7.45); ABG PO2 190 mmHg (83-108)
[2017-02-24 12:11] LABS: ABG Base Excess 4.5 mmol/L; ABG TCO2 30 mmol/L (19-24)
--- NOTE | 2017-02-24 12:12 | P.PN ---
Subjective Progress Note Date: 02/24/17 Principal diagnosis: COPD exacerbation, shortness of breath Progress note dated 02/24/2017 56-year-old male who sees my partners for his underlying COPD. He came in with a COPD exacerbation. Currently on BiPAP. He is only marginally better today than he was yesterday. I did a blood gas. His oxygenation and ventilation is excellent. We can actually dropped down his FiO2. Pertinent dropped down to 35 % from 50%. He is very short of breath. Very tight. Coughing wheezing. Lots of chest congestion. Very very short of breath. Objective - Vital Signs Vital signs: Vital Signs Temp 97.1 F L 02/23/17 20:00 Pulse 96 02/24/17 10:59 Resp 24 02/24/17 07:30 BP 149/86 02/24/17 07:30 Pulse Ox 98 02/24/17 07:30 Intake & Output 02/23/17 02/24/17 02/24/17 18:59 06:59 18:59 Intake Total 224 460 Balance 224 460 Weight 72.2 kg Intake: Intake, IV Titration 160 Amount Sodium Chloride 0.9% 1, 160 000 ml @ 20 mls/hr IV . Q24H HEATHER Rx#:[id number] Oral 224 300 Other: Voiding Method Toilet Toilet Toilet Urinal Urinal Urinal # Voids 2 - Exam The patient's very dyspneic. Wearing his BiPAP device. He is oriented 3.. HEENT examination is grossly unremarkable. Mucous membranes are moist. No oral lesions. Neck supple. Full range of motion. No adenopathy thyromegaly or neck vein distention. Cardiovascular examination reveals regular rhythm rate. S1-S2 normal. No S3 or S4. No discernible murmur noted. Lungs reveal severely diminished breath sounds. There is inspiratory next 3 wheezes or rhonchi. Breath sounds are equal but severely diminished. There is prolongation on forced maneuver. Abdomen soft bowel sounds are heard. No masses or tenderness. Extremities are intact. No cyanosis clubbing or edema. Skin is without rash or lesion. Neurologic examination is brief but nonfocal. - Labs CBC & Chem 7: 02/22/17 12:05 02/22/17 12:05 Labs: Abnormal Lab Results - Last 24 Hours (Table) 02/23/17 02/23/17 02/24/17 Range/Units 16:49 20:42 05:36 POC Glucose (mg/dL) 197 H 141 H 142 H (75-99) mg/dL 02/24/17 Range/Units 11:49 POC Glucose (mg/dL) 169 H (75-99) mg/dL Microbiology - Last 24 Hours (Table) 02/22/17 12:05 Blood Culture - Preliminary Blood No Growth after 24 hours Assessment and Plan (1) Acute exacerbation of chronic obstructive airways disease Current Visit: Yes Status: Acute Code(s): J44.1 - CHRONIC OBSTRUCTIVE PULMONARY DISEASE W (ACUTE) EXACERBATION SNOMED Code(s): 408848413 (2) Acute respiratory failure Current Visit: No Status: Acute Code(s): J96.00 - ACUTE RESPIRATORY FAILURE , UNSP W HYPOXIA OR HYPERCAPNIA SNOMED Code(s): 90784958 (3) Anxiety Current Visit: No Status: Acute Code(s): F41.9 - ANXIETY DISORDER, UNSPECIFIED SNOMED Code(s): 27163221 (4) Asthma with status asthmaticus Current Visit: No Status: Acute Code(s): J45.902 - UNSPECIFIED ASTHMA WITH STATUS ASTHMATICUS SNOMED Code(s): 226054910 (5) Hypoxemia Current Visit: No Status: Acute Code(s): R09.02 - HYPOXEMIA SNOMED Code(s) : 811345898 (6) Sleep apnea syndrome Current Visit: No Status: Acute Code(s): G47.30 - SLEEP APNEA, UNSPECIFIED SNOMED Code(s): 80160443 (7) Smoking Current Visit: No Status: Acute Code(s): F17.200 - NICOTINE DEPENDENCE, UNSPECIFIED, UNCOMPLICATED SNOMED Code(s): 31437260 Plan: Plan dated 02/23/2017 The patient's COPD is quite severe. He is going between nasal O2 and his BiPAP device. We'll check his medications and make sure he is on all appropriate medications. Prognosis is guarded. The patient be follow very closely. He may end up in the intensive care unit. Plan dated 02/24/2017 The patient will continue on current medications. This will include Solu- Medrol updrafts and other medications for breathing. The patient will continue on antibiotics as well. The patient will continue on BiPAP. A blood gas was done. Oxygenation and ventilation are excellent. Should be able to turn down the FiO2. We'll watch him closely. There may be deterioration. Time with Patient: Greater than 30
[2017-02-24 13:17] LABS: Hemoglobin A1C 5.8 % (4.0-6.0)
[2017-02-24 16:56] LABS: Glucose,Whole Blood 168 mg/dL (75-99)
[2017-02-24] MEDS: SODIUM CHLORIDE 0.9% 1,000 ML IV SCH (17:42)
[2017-02-24] MEDS: THEOPHYLLINE 24 HOUR 400 MG CAP.ER.24H PO SCH (19:30)
[2017-02-24 21:13] LABS: Glucose,Whole Blood 151 mg/dL (75-99)
--- NOTE | 2017-02-24 22:06 | P.PN ---
Subjective Progress Note Date: 02/24/17 Principal diagnosis: Acute COPD exacerbation Patient is a 56-year-old male with a history of COPD , obstructive sleep apnea on CPAP at home, renal stones and active nicotine addiction who states she's had progressively worsening shortness of breath over last 2 week or so he did have some antibiotics and he finished the other day. He saw his doctor 2 days ago was given an IM steroid shot states he's gotten worse not better. He has some chest tightness. no overt fevers chills or sweats he also is had some rhinorrhea. Patient was in acute respiratory distress on admission and was placed on BiPAP. Currently patient is awake and oriented. No recent travel or sick contacts at home. No complaints of chest pain. No nausea vomiting or abdominal pain. Chest x-ray showed COPD and cardiomegaly EKG showed sinus tachycardia On 02/23/2017 Patient is still requiring BiPAP and also having significant wheezing. No fever chills. No complaints of chest pain. No nausea vomiting or abdominal pain. Patien will be continued on IV steroids and DuoNeb's. Pulmicort and Perforomist as been added. 02/24/2017 Patient's breathing status slightly improved. Wheezing improved. Otherwise patient is still requiring BiPAP. ABG showed good ventilation. Otherwise denied any chest pain. No nausea vomiting or abdominal pain. Continued on IV steroids and breathing treatments. No other acute overnight issues. All other review of systems negative except the above current medications reviewed Objective - Vital Signs Vital signs: Vital Signs Temp 97.1 F L 02/23/17 20:00 Pulse 87 02/24/17 12:16 Resp 20 02/24/17 12:16 BP 126/77 02/24/17 12:16 Pulse Ox 99 02/24/17 12:16 Intake & Output 02/23/17 02/24/17 02/24/17 18:59 06:59 18:59 Intake Total 224 460 237 Output Total 200 Balance 224 460 37 Weight 72.2 kg Intake: Intake, IV Titration 160 Amount Sodium Chloride 0.9% 1, 160 000 ml @ 20 mls/hr IV . Q24H HEATHER Rx#:[id number] Oral 224 300 237 Output: Urine 200 Other: Voiding Method Toilet Toilet Toilet Urinal Urinal Urinal # Voids 2 - Exam PHYSICAL EXAMINATION: Patient is lying in the bed comfortably, no acute distress, awake alert and oriented. Anxious.. HEENT: Normocephalic. Neck is supple. Pupils reactive. Nostrils clear. Oral cavity is moist. Ears reveal no drainage. Neck reveals no JVD, carotid bruits, or thyromegaly. CHEST EXAMINATION: Trachea is central. Symmetrical expansion. Bilateral expiratory wheezing present. Improved compared to yesterday CARDIAC: Normal S1, S2 with no gallops. No murmurs ABDOMEN: Soft. Bowel sounds normal. No organomegaly. No abdominal bruits. Extremities: reveal no edema. No clubbing or cyanosis Neurologically awake, alert, oriented x3 with well-coordinated movements. No focal deficits noted Skin: No rash or skin lesions. Psychiatric: Cooperative. Nonsuicidal Musculoskeletal: No joint swelling or deformity. Normal range of motion. - Labs CBC & Chem 7: 02/22/17 12:05 02/22/17 12:05 Labs: Abnormal Lab Results - Last 24 Hours (Table) 02/23/17 02/23/17 02/24/17 Range/Units 16:49 20:42 05:36 ABG pO2 (83-108) mmHg ABG HCO3 (21-25) mmol/L ABG Total CO2 (19-24) mmol/L ABG O2 Saturation (94-97) % POC Glucose (mg/dL) 197 H 141 H 142 H (75-99) mg/dL 02/24/17 02/24/17 Range/Units 11:49 11:59 ABG pO2 190 H (83-108) mmHg ABG HCO3 29 H (21-25) mmol/L ABG Total CO2 30 H (19-24) mmol/L ABG O2 Saturation 100.0 H (94-97) % POC Glucose (mg/dL) 169 H (75-99) mg/dL Microbiology - Last 24 Hours (Table) 02/22/17 12:05 Blood Culture - Preliminary Blood No Growth after 24 hours Assessment and Plan Assessment: Acute respiratory failure on admission. Requiring BiPAP Acute COPD exacerbation Obstructive sleep apnea on CPAP at home Severe COPD Anxiety Active nicotine addiction DVT prophylaxis Plan: Patient will be continued on methylprednisolone along with breathing treatments. Continue with BiPAP. Pulmonary is following. Continue with azithromycin.. We'll continue with the current management and further recommendations based on the clinical course. Smoking cessation was counseled extensively. Time with Patient: Greater than 30
[2017-02-25] MEDS: IPRATROPIUM-ALBUTEROL 3 ML NEB INHALATION SCH ×7 (00:49→23:51)
[2017-02-25] MEDS: ALPRAZolam 0.25 MG TAB PO PRN ×3 (01:09→19:35)
[2017-02-25] MEDS: methylPREDNISolone SOD SUCCI 125 MG/2 ML VIAL IV SCH ×4 (04:59→23:44)
[2017-02-25 05:57] LABS: Glucose,Whole Blood 175 mg/dL (75-99)
[2017-02-25] MEDS: INSULIN ASPART 100 UNIT/ML 1 ML 10 ML VIAL SQ SCH ×4 (06:29→22:31)
[2017-02-25] MEDS: PANTOPRAZOLE 40 MG TABLET PO SCH (06:29)
[2017-02-25] MEDS: LORATADINE 10 MG TAB PO SCH (07:57)
[2017-02-25] MEDS: AZITHROMYCIN 500 MG TAB PO SCH (07:57)
[2017-02-25] MEDS: HEPARIN SODIUM,PORCINE 5,000 UNIT/ML 1 ML VIAL SQ SCH ×2 (07:57→19:45)
[2017-02-25] MEDS: PATIENT'S OWN MED (Roflumilast [Daliresp] 500 MCG) PO SCH (07:58)
[2017-02-25] MEDS: FORMOTEROL FUMARATE 20 MCG/2 ML NEBU INHALATION SCH ×2 (08:39→19:53)
[2017-02-25] MEDS: BUDESONIDE 1 MG/2 ML NEBU INHALATION SCH ×2 (08:39→19:53)
[2017-02-25 11:42] LABS: Glucose,Whole Blood 103 mg/dL (75-99)
--- NOTE | 2017-02-25 12:09 | P.PN ---
Subjective Progress Note Date: 02/25/17 Principal diagnosis: Acute exacerbation of chronic obstructive pulmonary disease. The patient is seen again today 02/25/2017 in follow-up on the selective care unit. He is awake and alert in no acute distress. He is currently off the BiPAP. He is breathing better today as compared to yesterday. He is still quite dyspneic with very minimal exertion. He is maintaining good O2 saturations in the mid 90s on 5 L/m per nasal cannula. He has been afebrile. Slightly tachycardic. Slightly tachypneic. Objective - Vital Signs Vital signs: Vital Signs Temp 98.6 F 02/25/17 11:12 Pulse 86 02/25/17 11:53 Resp 24 02/25/17 11:12 BP 146/80 02/25/17 11:12 Pulse Ox 95 02/25/17 11:12 Intake & Output 02/24/17 02/25/17 02/25/17 18:59 06:59 18:59 Intake Total 474 300 240 Output Total 200 3 Balance 274 297 240 Weight 73.2 kg Intake: Oral 474 300 240 Output: Urine 200 3 Other: Voiding Method Toilet Toilet Toilet Urinal Urinal Urinal # Voids 2 - Exam GENERAL EXAM: Alert, fairly comfortable in no apparent distress. HEAD: Normocephalic. EYES: Normal reaction of pupils, equal size. NOSE: Clear with pink turbinates. THROAT: No erythema or exudates. NECK: No masses, no JVD. CHEST: No chest wall deformity. LUNGS: Equal air entry with end expiratory wheeze. Diminished throughout.. CVS: S1 and S2 normal with no audible murmur, regular rhythm. ABDOMEN: No hepatosplenomegaly, normal bowel sounds, no guarding or rigidity. SPINE: No scoliosis or deformity SKIN: No rashes CENTRAL NERVOUS SYSTEM: No focal deficits, tone is normal in all 4 extremities. EXTREMITIES: There is no peripheral edema. No clubbing, no cyanosis. Peripheral pulses are intact. - Labs CBC & Chem 7: 02/22/17 12:05 02/22/17 12:05 Labs: Abnormal Lab Results - Last 24 Hours (Table) 02/24/17 02/24/17 02/24/17 Range/Units 11:59 16:52 21:12 ABG pO2 190 H (83-108) mmHg ABG HCO3 29 H (21-25) mmol/L ABG Total CO2 30 H (19-24) mmol/L ABG O2 Saturation 100.0 H (94-97) % POC Glucose (mg/dL) 168 H 151 H (75-99) mg/dL 02/25/17 02/25/17 Range/Units 05:53 11:38 ABG pO2 (83-108) mmHg ABG HCO3 (21-25) mmol/L ABG Total CO2 (19-24) mmol/L ABG O2 Saturation (94-97) % POC Glucose (mg/dL) 175 H 103 H (75-99) mg/dL Microbiology - Last 24 Hours (Table) 02/22/17 12:05 Blood Culture - Preliminary Blood No Growth after 48 hours Assessment and Plan Assessment: Impression: #1 Acute exacerbation of severe chronic obstructive pulmonary disease. #2 Acute hypoxic respiratory failure secondary to above. #3 Chronic and ongoing tobacco dependence. #4 Obstructive sleep apnea utilizing CPAP in the outpatient setting. #5 Anxiety. Plan: The patient was seen and evaluated by Dr. Reynoso. We'll continue to utilize BiPAP as needed. Continue with his current treatment. He is still quite bronchospastic and wheezy. Still not ready for discharge. He is again educated regarding the importance of complete smoking cessation. We'll increase his activity as tolerated. We'll continue to follow. I, the cosigning physician, performed a history & physical examination of the patient. Lungs sounds with bilateral wheezing. Diminished throughout.. Maintaining good O2 saturations in the 90s alternating between BiPAP and 5 L/m per nasal cannula.. I discussed the assessment and plan of care with my nurse practitioner, Donna Neri. I attest to the above note as dictated by her.
[2017-02-25 16:43] LABS: Glucose,Whole Blood 141 mg/dL (75-99)
[2017-02-25] MEDS: SODIUM CHLORIDE 0.9% 1,000 ML IV SCH (17:58)
[2017-02-25] MEDS: THEOPHYLLINE 24 HOUR 400 MG CAP.ER.24H PO SCH (19:45)
[2017-02-25 21:14] LABS: Glucose,Whole Blood 190 mg/dL (75-99)
[2017-02-26] MEDS: IPRATROPIUM-ALBUTEROL 3 ML NEB INHALATION SCH ×5 (03:34→20:28)
[2017-02-26 05:59] LABS: Glucose,Whole Blood 137 mg/dL (75-99)
[2017-02-26] MEDS: FORMOTEROL FUMARATE 20 MCG/2 ML NEBU INHALATION SCH ×2 (06:57→20:28)
[2017-02-26] MEDS: BUDESONIDE 1 MG/2 ML NEBU INHALATION SCH ×2 (06:57→20:28)
[2017-02-26] MEDS: PANTOPRAZOLE 40 MG TABLET PO SCH (07:04)
[2017-02-26] MEDS: methylPREDNISolone SOD SUCCI 125 MG/2 ML VIAL IV SCH ×4 (07:04→23:54)
[2017-02-26] MEDS: INSULIN ASPART 100 UNIT/ML 1 ML 10 ML VIAL SQ SCH ×4 (07:13→23:46)
[2017-02-26] MEDS: AZITHROMYCIN 500 MG TAB PO SCH (08:40)
[2017-02-26] MEDS: LORATADINE 10 MG TAB PO SCH (08:40)
[2017-02-26] MEDS: HEPARIN SODIUM,PORCINE 5,000 UNIT/ML 1 ML VIAL SQ SCH ×2 (08:40→20:23)
[2017-02-26] MEDS: PATIENT'S OWN MED (Roflumilast [Daliresp] 500 MCG) PO SCH (08:41)
--- NOTE | 2017-02-26 10:06 | P.PN ---
Subjective Progress Note Date: 02/26/17 Principal diagnosis: Acute exacerbation of chronic obstructive pulmonary disease. The patient is seen again today 02/25/2017 in follow-up on the selective care unit. He is awake and alert in no acute distress. He is currently off the BiPAP. He is breathing better today as compared to yesterday. He is still quite dyspneic with very minimal exertion. He is maintaining good O2 saturations in the mid 90s on 5 L/m per nasal cannula. He has been afebrile. Slightly tachycardic. Slightly tachypneic. The patient is seen again today 02/26/2017 in follow-up on the selective care unit. He is awake and alert in no acute distress. He is doing better today as compared to yesterday. He is anxious to go home. He is still requiring intermittent BiPAP use and didn't utilize it throughout the evening last night. When off BiPAP he is maintaining good O2 saturations in the mid 90s on 5 L/m per nasal cannula. He's been afebrile. Hemodynamically stable. Lung sounds are still quite diminished. Objective - Vital Signs Vital signs: Vital Signs Temp 97 F L 02/26/17 04:00 Pulse 88 02/26/17 07:25 Resp 12 02/26/17 04:00 BP 138/77 02/26/17 04:00 Pulse Ox 96 02/26/17 07:00 Intake & Output 02/25/17 02/26/17 02/26/17 18:59 06:59 18:59 Intake Total 720 Output Total 200 Balance 520 Weight 73.4 kg 73.4 kg Intake: Oral 720 Output: Urine 200 Other: Voiding Method Toilet Toilet Toilet Urinal Urinal Urinal # Voids 1 1 # Bowel Movements 0 0 0 - Exam GENERAL EXAM: Alert, fairly comfortable in no apparent distress. HEAD: Normocephalic. EYES: Normal reaction of pupils, equal size. NOSE: Clear with pink turbinates. THROAT: No erythema or exudates. NECK: No masses, no JVD. CHEST: No chest wall deformity. LUNGS: Equal air entry with end expiratory wheeze. Diminished throughout.. CVS: S1 and S2 normal with no audible murmur, regular rhythm. ABDOMEN: No hepatosplenomegaly, normal bowel sounds, no guarding or rigidity. SPINE: No scoliosis or deformity SKIN: No rashes CENTRAL NERVOUS SYSTEM: No focal deficits, tone is normal in all 4 extremities. EXTREMITIES: There is no peripheral edema. No clubbing, no cyanosis. Peripheral pulses are intact. - Labs CBC & Chem 7: 02/22/17 12:05 02/22/17 12:05 Labs: Abnormal Lab Results - Last 24 Hours (Table) 02/25/17 02/25/17 02/25/17 Range/Units 11:38 16:41 21:11 POC Glucose (mg/dL) 103 H 141 H 190 H (75-99) mg/dL 02/26/17 Range/Units 05:54 POC Glucose (mg/dL) 137 H (75-99) mg/dL Microbiology - Last 24 Hours (Table) 02/22/17 12:05 Blood Culture - Preliminary Blood No Growth after 72 hours Assessment and Plan Assessment: Impression: #1 Acute exacerbation of severe chronic obstructive pulmonary disease. #2 Acute hypoxic respiratory failure secondary to above. #3 Chronic and ongoing tobacco dependence. #4 Obstructive sleep apnea utilizing CPAP in the outpatient setting. #5 Anxiety. Plan: The patient was seen and evaluated by Dr. Reynoso. We'll continue to utilize BiPAP as needed. Continue with his current treatment. He is still quite bronchospastic and wheezy. Still not ready for discharge. Probably home in the a.m. He is again educated regarding the importance of complete smoking cessation. We'll increase his activity as tolerated. We'll continue to follow. I, the cosigning physician, performed a history & physical examination of the patient. Lungs sounds with bilateral wheezing. Diminished throughout.. Maintaining good O2 saturations in the 90s alternating between BiPAP and 5 L/m per nasal cannula.. I discussed the assessment and plan of care with my nurse practitioner, Donna Neri. I attest to the above note as dictated by her.
[2017-02-26] MEDS: ALPRAZolam 0.25 MG TAB PO PRN ×2 (10:23→20:15)
[2017-02-26 12:08] LABS: Glucose,Whole Blood 131 mg/dL (75-99)
[2017-02-26 16:46] LABS: Glucose,Whole Blood 236 mg/dL (75-99)
[2017-02-26] MEDS: SODIUM CHLORIDE 0.9% 1,000 ML IV SCH (17:14)
[2017-02-26] MEDS: THEOPHYLLINE 24 HOUR 400 MG CAP.ER.24H PO SCH (20:23)
[2017-02-26 20:46] LABS: Glucose,Whole Blood 196 mg/dL (75-99)
--- NOTE | 2017-02-26 22:41 | P.PN ---
Subjective Progress Note Date: 02/25/17 Principal diagnosis: Acute COPD exacerbation Patient is a 56-year-old male with a history of COPD , obstructive sleep apnea on CPAP at home, renal stones and active nicotine addiction who states she's had progressively worsening shortness of breath over last 2 week or so he did have some antibiotics and he finished the other day. He saw his doctor 2 days ago was given an IM steroid shot states he's gotten worse not better. He has some chest tightness. no overt fevers chills or sweats he also is had some rhinorrhea. Patient was in acute respiratory distress on admission and was placed on BiPAP. Currently patient is awake and oriented. No recent travel or sick contacts at home. No complaints of chest pain. No nausea vomiting or abdominal pain. Chest x-ray showed COPD and cardiomegaly EKG showed sinus tachycardia On 02/23/2017 Patient is still requiring BiPAP and also having significant wheezing. No fever chills. No complaints of chest pain. No nausea vomiting or abdominal pain. Patien will be continued on IV steroids and DuoNeb's. Pulmicort and Perforomist as been added. 02/24/2017 Patient's breathing status slightly improved. Wheezing improved. Otherwise patient is still requiring BiPAP. ABG showed good ventilation. Otherwise denied any chest pain. No nausea vomiting or abdominal pain. Continued on IV steroids and breathing treatments. No other acute overnight issues. 02/25/2017 Patient is still wheezing today. Requiring BiPAP intermittently. Otherwise continues to have shortness of breath but slowly improving. Continued on current management. All other review of systems negative except the above current medications reviewed Objective - Vital Signs Vital signs: Vital Signs Temp 98.6 F 02/25/17 11:12 Pulse 86 02/25/17 11:53 Resp 24 02/25/17 11:12 BP 146/80 02/25/17 11:12 Pulse Ox 95 02/25/17 11:12 Intake & Output 02/24/17 02/25/17 02/25/17 18:59 06:59 18:59 Intake Total 474 300 240 Output Total 200 3 Balance 274 297 240 Weight 73.2 kg Intake: Oral 474 300 240 Output: Urine 200 3 Other: Voiding Method Toilet Toilet Toilet Urinal Urinal Urinal # Voids 2 - Exam PHYSICAL EXAMINATION: Patient is lying in the bed comfortably, no acute distress, awake alert and oriented. Anxious.. HEENT: Normocephalic. Neck is supple. Pupils reactive. Nostrils clear. Oral cavity is moist. Ears reveal no drainage. Neck reveals no JVD, carotid bruits, or thyromegaly. CHEST EXAMINATION: Trachea is central. Symmetrical expansion. Bilateral expiratory wheezing present. Improved compared to yesterday CARDIAC: Normal S1, S2 with no gallops. No murmurs ABDOMEN: Soft. Bowel sounds normal. No organomegaly. No abdominal bruits. Extremities: reveal no edema. No clubbing or cyanosis Neurologically awake, alert, oriented x3 with well-coordinated movements. No focal deficits noted Skin: No rash or skin lesions. Psychiatric: Cooperative. Nonsuicidal Musculoskeletal: No joint swelling or deformity. Normal range of motion. - Labs CBC & Chem 7: 02/22/17 12:05 02/22/17 12:05 Labs: Abnormal Lab Results - Last 24 Hours (Table) 02/24/17 02/24/17 02/25/17 Range/Units 16:52 21:12 05:53 POC Glucose (mg/dL) 168 H 151 H 175 H (75-99) mg/dL 02/25/17 Range/Units 11:38 POC Glucose (mg/dL) 103 H (75-99) mg/dL Microbiology - Last 24 Hours (Table) 02/22/17 12:05 Blood Culture - Preliminary Blood No Growth after 48 hours Assessment and Plan Assessment: Acute respiratory failure on admission. Requiring BiPAP Acute COPD exacerbation Obstructive sleep apnea on CPAP at home Severe COPD Anxiety Active nicotine addiction DVT prophylaxis Plan: Patient will be continued on methylprednisolone along with breathing treatments. Continue with BiPAP. Pulmonary is following. Continue with azithromycin.. We'll continue with the current management and further recommendations based on the clinical course. Smoking cessation was counseled extensively.
[2017-02-27] MEDS: IPRATROPIUM-ALBUTEROL 3 ML NEB INHALATION SCH ×4 (00:18→11:04)
[2017-02-27 02:01] VITALS: RESP 18
[2017-02-27 06:05] LABS: Glucose,Whole Blood 141 mg/dL (75-99)
[2017-02-27] MEDS: methylPREDNISolone SOD SUCCI 125 MG/2 ML VIAL IV SCH ×2 (06:32→12:00)
[2017-02-27] MEDS: INSULIN ASPART 100 UNIT/ML 1 ML 10 ML VIAL SQ SCH ×2 (06:32→12:39)
[2017-02-27] MEDS: PANTOPRAZOLE 40 MG TABLET PO SCH (06:37)
[2017-02-27] MEDS: FORMOTEROL FUMARATE 20 MCG/2 ML NEBU INHALATION SCH (06:55)
[2017-02-27] MEDS: BUDESONIDE 1 MG/2 ML NEBU INHALATION SCH (06:55)
[2017-02-27] MEDS: AZITHROMYCIN 500 MG TAB PO SCH (08:32)
[2017-02-27] MEDS: LORATADINE 10 MG TAB PO SCH (08:32)
[2017-02-27] MEDS: HEPARIN SODIUM,PORCINE 5,000 UNIT/ML 1 ML VIAL SQ SCH (08:32)
[2017-02-27 08:35] VITALS: TEMP 97.1
[2017-02-27] MEDS: PATIENT'S OWN MED (Roflumilast [Daliresp] 500 MCG) PO SCH (08:43)
[2017-02-27 11:25] VITALS: PULSE 99
[2017-02-27 11:32] LABS: Glucose,Whole Blood 180 mg/dL (75-99)
[2017-02-27] MEDS ORDERED: predniSONE 50 MG TAB PO SCH (12:30)
[2017-02-27 13:05] VITALS: BP 142/86
[2017-02-27 13:17] VITALS: BMI 25.2
--- NOTE | 2017-02-27 14:15 | P.PN ---
Subjective Progress Note Date: 02/27/17 Principal diagnosis: Acute exacerbation of COPD The patient is seen again today 02/25/2017 in follow-up on the selective care unit. He is awake and alert in no acute distress. He is currently off the BiPAP. He is breathing better today as compared to yesterday. He is still quite dyspneic with very minimal exertion. He is maintaining good O2 saturations in the mid 90s on 5 L/m per nasal cannula. He has been afebrile. Slightly tachycardic. Slightly tachypneic. The patient is seen again today 02/26/2017 in follow-up on the selective care unit. He is awake and alert in no acute distress. He is doing better today as compared to yesterday. He is anxious to go home. He is still requiring intermittent BiPAP use and didn't utilize it throughout the evening last night. When off BiPAP he is maintaining good O2 saturations in the mid 90s on 5 L/m per nasal cannula. He's been afebrile. Hemodynamically stable. Lung sounds are still quite diminished. On 02/27/2017 patient continues to improve. Off BiPAP, on 5 L per nasal cannula he was 100%, on room air his O2 sat was 94-96%, stable vitals, afebrile. Lung sounds are generally diminished, with bibasilar rales, no acute distress. Increase activity as tolerated. Patient has significantly improved. Is stable for discharge home today. Will need to see Dr. Davis in the office early next week. Objective - Vital Signs Vital signs: Vital Signs Temp 97.1 F L 02/27/17 12:00 Pulse 99 02/27/17 12:00 Resp 18 02/27/17 12:00 BP 142/86 02/27/17 12:00 Pulse Ox 96 02/27/17 12:00 Intake & Output 02/26/17 02/27/17 02/27/17 18:59 06:59 18:59 Intake Total 717 1154 Balance 717 1154 Weight 73.4 kg 73.1 kg 73.1 kg Intake: Oral 717 1154 Other: Voiding Method Toilet Toilet Toilet Urinal Urinal Urinal # Voids 1 1 # Bowel Movements 0 - Exam GENERAL EXAM: Alert, fairly comfortable in no apparent distress. HEAD: Normocephalic. EYES: Normal reaction of pupils, equal size. NOSE: Clear with pink turbinates. THROAT: No erythema or exudates. NECK: No masses, no JVD. CHEST: No chest wall deformity. LUNGS: Equal air entry with bibasilar rales. Diminished throughout.. CVS: S1 and S2 normal with no audible murmur, regular rhythm. ABDOMEN: No hepatosplenomegaly, normal bowel sounds, no guarding or rigidity. SPINE: No scoliosis or deformity SKIN: No rashes CENTRAL NERVOUS SYSTEM: No focal deficits, tone is normal in all 4 extremities. EXTREMITIES: There is no peripheral edema. No clubbing, no cyanosis. Peripheral pulses are intact. - Labs CBC & Chem 7: 02/22/17 12:05 02/22/17 12:05 Labs: Abnormal Lab Results - Last 24 Hours (Table) 02/26/17 02/26/17 02/27/17 Range/Units 16:43 20:44 06:02 POC Glucose (mg/dL) 236 H 196 H 141 H (75-99) mg/dL 02/27/17 Range/Units 11:30 POC Glucose (mg/dL) 180 H (75-99) mg/dL Microbiology - Last 24 Hours (Table) 02/22/17 12:05 Blood Culture - Preliminary Blood No Growth after 96 hours Assessment and Plan Plan: Assessment: #1 Acute exacerbation of severe chronic obstructive pulmonary disease, improved #2 Acute hypoxic respiratory failure secondary to above. #3 Chronic and ongoing tobacco dependence. #4 Obstructive sleep apnea utilizing CPAP in the outpatient setting. #5 Anxiety. Plan: Patient has significantly improved, off BiPAP, currently on room air, with stable oxygenation. Patient is stable for discharge home today, on outpatient course of oral Zithromax, prednisone taper, his maintenance inhalers. He will need follow-up appointment with Dr. Davis early next week. I performed a history & physical examination of the patient and discussed their management with my nurse practitioner, Gay Fiore. I reviewed the nurse practitioner's note and agree with the documented findings and plan of care. Lung sounds are positive for bibasilar rales. The findings and the impression was discussed with the patient. I attest to the documentation by the nurse practitioner. Time with Patient: Less than 30
--- NOTE | 2017-02-27 23:22 | P.PN ---
Subjective Progress Note Date: 02/26/17 Principal diagnosis: Acute COPD exacerbation Patient is a 56-year-old male with a history of COPD , obstructive sleep apnea on CPAP at home, renal stones and active nicotine addiction who states she's had progressively worsening shortness of breath over last 2 week or so he did have some antibiotics and he finished the other day. He saw his doctor 2 days ago was given an IM steroid shot states he's gotten worse not better. He has some chest tightness. no overt fevers chills or sweats he also is had some rhinorrhea. Patient was in acute respiratory distress on admission and was placed on BiPAP. Currently patient is awake and oriented. No recent travel or sick contacts at home. No complaints of chest pain. No nausea vomiting or abdominal pain. Chest x-ray showed COPD and cardiomegaly EKG showed sinus tachycardia On 02/23/2017 Patient is still requiring BiPAP and also having significant wheezing. No fever chills. No complaints of chest pain. No nausea vomiting or abdominal pain. Patien will be continued on IV steroids and DuoNeb's. Pulmicort and Perforomist as been added. 02/24/2017 Patient's breathing status slightly improved. Wheezing improved. Otherwise patient is still requiring BiPAP. ABG showed good ventilation. Otherwise denied any chest pain. No nausea vomiting or abdominal pain. Continued on IV steroids and breathing treatments. No other acute overnight issues. 02/25/2017 Patient is still wheezing today. Requiring BiPAP intermittently. Otherwise continues to have shortness of breath but slowly improving. Continued on current management. 02/26/2079 Wheezing much improved. Currently on oxygen via nausea cannula. Continue the current management and anticipate discharged tomorrow with more clinical improvement. All other review of systems negative except the above current medications reviewed Objective - Vital Signs Vital signs: Vital Signs Temp 97 F L 02/26/17 04:00 Pulse 94 02/26/17 20:43 Resp 18 02/26/17 16:00 BP 135/74 02/26/17 16:00 Pulse Ox 99 02/26/17 12:00 Intake & Output 02/26/17 02/26/17 02/27/17 06:59 18:59 06:59 Intake Total 717 Balance 717 Weight 73.4 kg 73.4 kg Intake: Oral 717 Other: Voiding Method Toilet Toilet Urinal Urinal # Voids 1 1 # Bowel Movements 0 0 - Exam PHYSICAL EXAMINATION: Patient is lying in the bed comfortably, no acute distress, awake alert and oriented. Anxious.. HEENT: Normocephalic. Neck is supple. Pupils reactive. Nostrils clear. Oral cavity is moist. Ears reveal no drainage. Neck reveals no JVD, carotid bruits, or thyromegaly. CHEST EXAMINATION: Trachea is central. Symmetrical expansion. Bilateral expiratory wheezing present. Improved compared to yesterday CARDIAC: Normal S1, S2 with no gallops. No murmurs ABDOMEN: Soft. Bowel sounds normal. No organomegaly. No abdominal bruits. Extremities: reveal no edema. No clubbing or cyanosis Neurologically awake, alert, oriented x3 with well-coordinated movements. No focal deficits noted Skin: No rash or skin lesions. Psychiatric: Cooperative. Nonsuicidal Musculoskeletal: No joint swelling or deformity. Normal range of motion. - Labs CBC & Chem 7: 02/22/17 12:05 02/22/17 12:05 Labs: Abnormal Lab Results - Last 24 Hours (Table) 02/25/17 02/26/17 02/26/17 Range/Units 21:11 05:54 11:44 POC Glucose (mg/dL) 190 H 137 H 131 H (75-99) mg/dL 02/26/17 02/26/17 Range/Units 16:43 20:44 POC Glucose (mg/dL) 236 H 196 H (75-99) mg/dL Microbiology - Last 24 Hours (Table) 02/22/17 12:05 Blood Culture - Preliminary Blood No Growth after 96 hours Assessment and Plan Assessment: Acute respiratory failure on admission. Requiring BiPAP Acute COPD exacerbation Obstructive sleep apnea on CPAP at home Severe COPD Anxiety Active nicotine addiction DVT prophylaxis Plan: Patient will be continued on methylprednisolone along with breathing treatments. Continue with BiPAP. Pulmonary is following. Continue with azithromycin.. We'll continue with the current management and further recommendations based on the clinical course. Smoking cessation was counseled extensively.
--- NOTE | 2017-02-27 23:24 | P.DS ---
Providers Date of admission: 02/22/17 15:13 Expected date of discharge: 02/27/17 Attending physician: Ralph Guerrero Consults: 02/22/17 15:10 Consult Physician Routine Consulting Provider: Gideon Valencia Consult Reason/Comments: COPD exacerbation Do you want consulting provider notified?: Yes Primary care physician: Naye Doll Hospital Course: Discharge diagnosis Acute respiratory failure on admission. Requiring BiPAP Acute COPD exacerbation. Improving clinically Obstructive sleep apnea on CPAP at home Severe COPD Anxiety Active nicotine addiction DVT prophylaxis Smoking cessation was counseled extensively. Hospital course Patient is a 56-year-old male with a history of COPD , obstructive sleep apnea on CPAP at home, renal stones and active nicotine addiction who states she's had progressively worsening shortness of breath over last 2 week or so he did have some antibiotics and he finished the other day. He saw his doctor 2 days ago was given an IM steroid shot states he's gotten worse not better. He has some chest tightness. no overt fevers chills or sweats he also is had some rhinorrhea. Patient was in acute respiratory distress on admission and was placed on BiPAP. Currently patient is awake and oriented. No recent travel or sick contacts at home. No complaints of chest pain. No nausea vomiting or abdominal pain. Chest x-ray showed COPD and cardiomegaly EKG showed sinus tachycardia On 02/23/2017 Patient is still requiring BiPAP and also having significant wheezing. No fever chills. No complaints of chest pain. No nausea vomiting or abdominal pain. Patien will be continued on IV steroids and DuoNeb's. Pulmicort and Perforomist as been added. 02/24/2017 Patient's breathing status slightly improved. Wheezing improved. Otherwise patient is still requiring BiPAP. ABG showed good ventilation. Otherwise denied any chest pain. No nausea vomiting or abdominal pain. Continued on IV steroids and breathing treatments. No other acute overnight issues. 02/25/2017 Patient is still wheezing today. Requiring BiPAP intermittently. Otherwise continues to have shortness of breath but slowly improving. Continued on current management. 02/26/2017 Wheezing much improved. Currently on oxygen via nausea cannula. Continue the current management and anticipate discharged tomorrow with more clinical improvement. 02/27/2017. Bilateral wheezing is much improved and patient is still for discharge home with steroid tapering dose and his home dose of inhalers and nebulizations. Cleared from pulmonary standpoint. PHYSICAL EXAMINATION: Patient is lying in the bed comfortably, no acute distress, awake alert and oriented.. HEENT: Normocephalic. Neck is supple. Pupils reactive. Nostrils clear. Oral cavity is moist. Ears reveal no drainage. Neck reveals no JVD, carotid bruits, or thyromegaly. CHEST EXAMINATION: Trachea is central. Symmetrical expansion. Bilateral slow air entry. Minimal expiratory wheezing. CARDIAC: Normal S1, S2 with no gallops. No murmurs ABDOMEN: Soft. Bowel sounds normal. No organomegaly. No abdominal bruits. Extremities: reveal no edema. No clubbing or cyanosis Neurologically awake, alert, oriented x3 with well-coordinated movements. No focal deficits noted Skin: No rash or skin lesions. Psychiatric: Coperative. Nonsuicidal Musculoskeletal: No joint swelling or deformity. Normal range of motion. Patient Condition at Discharge: Stable Plan - Discharge Summary Discharge Rx Participant: No New Discharge Prescriptions: New Azithromycin [Zithromax] 500 mg PO DAILY #3 tab predniSONE See Taper PO DAILY #30 tab Continue Aclidinium [place] [Tudorza Pressair] 1 puff INHALATION RT-DAILY Fexofenadine HCl [Alaina Allergy] 180 mg PO DAILY Mometasone/Formoterol [Dulera 200 Mcg/5 Mcg Inhaler] 2 puff INHALATION RT-BID Roflumilast [Daliresp] 500 mcg PO DAILY Albuterol Nebulized [Ventolin Nebulized] 2.5 mg INHALATION RT-QID PRN PRN Reason: Shortness Of Breath Alendronate Sodium [Fosamax] 70 mg PO DE [place] CRUZ Albuterol Sulfate [Proair Hfa] 2 puff INHALATION RT-QID PRN PRN Reason: Shortness Of Breath Theophylline Anhydrous [Uniphyl] 200 mg PO BID Pantoprazole [Protonix] 40 mg PO AC-BRKFST #15 tablet. predniSONE 5 mg PO DAILY #0 Discontinued predniSONE See Taper PO DAILY Discharge Medication List Aclidinium [place] [Tudorza Pressair] 1 puff INHALATION RT-DAILY 09/14/13 [ History] Fexofenadine HCl [Alaina Allergy] 180 mg PO DAILY 03/21/15 [History] Mometasone/Formoterol [Dulera 200 Mcg/5 Mcg Inhaler] 2 puff INHALATION RT-BID [History] Albuterol Nebulized [Ventolin Nebulized] 2.5 mg INHALATION RT-QID PRN 08/26/15 [ History] Roflumilast [Daliresp] 500 mcg PO DAILY 08/26/15 [History] Albuterol Sulfate [Proair Hfa] 2 puff INHALATION RT-QID PRN 07/28/16 [History] Alendronate Sodium [Fosamax] 70 mg PO DE [place] CRUZ 07/28/16 [History] Theophylline Anhydrous [Uniphyl] 200 mg PO BID 12/20/16 [History] Pantoprazole [Protonix] 40 mg PO AC-BRKFST #15 tablet. 12/23/16 [Rx] predniSONE 5 mg PO DAILY #0 12/23/16 [Rx] Azithromycin [Zithromax] 500 mg PO DAILY #3 tab 02/27/17 [Rx] predniSONE See Taper PO DAILY #30 tab 02/27/17 [Rx] Follow up Appointment(s)/Referral(s): Radha Ho MD [STAFF PHYSICIAN] - 03/03/17 1:15 pm (Thursday) Naye Doll DO [Primary Care Provider] - 03/04/17 3:30 pm (Thursday) Patient Instructions/Handouts: COPD (Chronic Obstructive Pulmonary Disease) (DC ) Discharge Disposition: HOME SELF-CARE
== END 2017-02-27 14:49 | disposition home or self-care (01) | DRG 189 ==
LOC: EC 11:54 → 6SEL 15:13
PROVIDERS: ADMIT Internal Medicine; ATTEND Internal Medicine
DX: J96.01 Acute respiratory failure with hypoxia (principal); J44.1 Chronic obstructive pulmonary disease with (acute) exacerbation; J45.902 Unspecified asthma with status asthmaticus; F17.200 Nicotine dependence, unspecified, uncomplicated; F41.9 Anxiety disorder, unspecified; G47.33 Obstructive sleep apnea (adult) (pediatric); Z79.83 Long term (current) use of bisphosphonates; Z79.51 Long term (current) use of inhaled steroids; Z79.52 Long term (current) use of systemic steroids; Z79.899 Other long term (current) drug therapy; Z87.442 Personal history of urinary calculi; Z82.5 Family history of asthma and other chronic lower respiratory diseases
CPT/HCPCS: 36415; 36600; 71045; 80053; 82550; 82553; 82805; 83036; 83605; 83735; 83880; 84484; 85025; 85379; 85610; 85730; 87040; 87502; 93005; 94640; 94660; 94760; 96361; 96365; 96375; 99291

== ENCOUNTER 2018-01-04 13:14 | Inpatient (IN) | payer OTHER ==
[2018-01-04] MEDS ORDERED: DEXAMETHASONE SOD PHOSPHATE 10 MG/ML 1 ML VIAL IV STA (13:35)
[2018-01-04] MEDS ORDERED: IPRATROPIUM-ALBUTEROL 3 ML NEB INHALATION STA (13:35)
[2018-01-04] MEDS ORDERED: ALBUTEROL NEBULIZED 2.5 MG/3 ML INHALATION STA (13:35)
--- NOTE | 2018-01-04 13:42 | ED ---
General Adult HPI - General Chief complaint: Shortness of Breath Stated complaint: Sob Time Seen by Provider: 01/04/18 13:29 Source: patient, RN notes reviewed, old records reviewed Mode of arrival: ambulatory Limitations: no limitations - History of Present Illness Initial comments: 57 yo male history of COPD presenting with 1 week of worsening cough and dyspnea. Patient's has supplemental oxygen at home to be used as needed. He has used this oxygen over the past 3 days continuously. Denies fever. Does report some chest pain worse with cough. No central radiating chest pain. No abdominal pain. No nausea vomiting. No lower extremity swelling. Patient continues to smoke. - Related Data Home Medications Medication Instructions Recorded Confirmed Fexofenadine HCl [Alaina Allergy] 180 mg PO DAILY 03/21/15 01/04/18 Mometasone/Formoterol [Dulera 200 2 puff INHALATION RT-BID 03/21/15 01/04/18 Mcg/5 Mcg Inhaler] Albuterol Sulfate [Proair Hfa] 2 puff INHALATION RT-QID PRN 07/28/16 01/04/18 Alendronate Sodium [Fosamax] 70 mg PO DE LA CRUZ 07/28/16 01/04/18 Theophylline Anhydrous [Uniphyl] 200 mg PO BID 12/20/16 01/04/18 Azithromycin [Zithromax] 250 mg PO Q48H 01/04/18 01/04/18 Ipratropium-Albuterol Nebulize 3 ml INHALATION RT-QID PRN 01/04/18 01/04/18 [Duoneb 0.5 mg-3 mg/3 ml Soln] Previous Rx's Medication Instructions Recorded predniSONE 5 mg PO DAILY #0 12/23/16 Allergies Allergy/AdvReac Type Severity Reaction Status Date / Time No Known Allergies Allergy Verified 01/04/18 13:41 Review of Systems ROS Statement: Those systems with pertinent positive or pertinent negative responses have been documented in the HPI. ROS Other: All systems not noted in ROS Statement are negative. Past Medical History Past Medical History: Asthma, COPD, Sleep Apnea/CPAP/BIPAP Additional Past Medical History / Comment(s): kidney stones, CPAP/oxygen at night. History of Any Multi-Drug Resistant Organisms: None Reported Past Surgical History: Hernia Repair Additional Past Surgical History / Comment(s): . Past Anesthesia/Blood Transfusion Reactions: No Reported Reaction Additional Past Anesthesia/Blood Transfusion Reaction / Comment(s): no blood transfusions Past Psychological History: Anxiety Smoking Status: Current every day smoker Past Alcohol Use History: Occasional Past Drug Use History: None Reported - Past Family History Father Family Medical History: COPD Additional Family Medical History / Comment(s): of lung cancer Mother Family Medical History: Asthma General Exam Limitations: no limitations General appearance: alert, in no apparent distress Head exam: Present: atraumatic, normocephalic Eye exam: Present: normal appearance, PERRL ENT exam: Present: normal exam Neck exam: Present: normal inspection. Absent: tenderness, meningismus Respiratory exam: Present: respiratory distress, wheezes, rhonchi, accessory muscle use, decreased breath sounds, prolonged expiratory Cardiovascular Exam: Present: normal rhythm, tachycardia GI/Abdominal exam: Present: soft. Absent: distended, tenderness, guarding Extremities exam: Present: normal inspection, normal capillary refill. Absent: pedal edema, calf tenderness Neurological exam: Present: alert, oriented X3, CN II-XII intact. Absent: motor sensory deficit Psychiatric exam: Present: normal affect, normal mood Skin exam: Present: warm, dry, intact. Absent: cyanosis, diaphoretic Course Vital Signs 01/04/18 01/04/18 01/04/18 13:19 13:45 13:50 Temperature 98.9 F Pulse Rate 113 H 114 H 115 H Respiratory 26 H 20 Rate Blood Pressure 139/83 143/100 O2 Sat by Pulse 88 L 96 Oximetry 01/04/18 01/04/18 14:10 14:32 Temperature Pulse Rate 130 H 123 H Respiratory 18 Rate Blood Pressure 129/86 O2 Sat by Pulse 97 Oximetry EKG Findings - EKG Comments: EKG Findings:: EKG: Sinus tachycardia, rightward axis, rate of 116, ID interval 170, QRS duration 94, QTC 447, no ST segment elevation Medical Decision Making - Medical Decision Making 57-year-old male with COPD presents with severe dyspnea. Patient given albuterol, Atrovent, steroids, placed on BiPAP. Chest x-ray shows COPD with some nasal or consolidation. Patient is started on Levaquin. He will be admitted for treatment of COPD exacerbation requiring BiPAP. Normal CBC, normal CMP, negative troponin and BNP. - Lab Data Result diagrams: 01/04/18 13:35 01/04/18 13:35 Lab Results 01/04/18 01/04/18 01/04/18 Range/Units 13:35 13:35 13:35 WBC 7.5 (3.8-10.6) k/uL RBC 5.16 (4.30-5.90) m/uL Hgb 16.3 (13.0-17.5) gm/dL Hct 48.6 (39.0-53.0) % MCV 94.2 (80.0-100.0) fL MCH 31.7 (25.0-35.0) pg MCHC 33.6 (31.0-37.0) g/dL RDW 13.3 (11.5-15.5) % Plt Count 202 (150-450) k/uL Neutrophils % 74 % Lymphocytes % 14 % Monocytes % 7 % Eosinophils % 3 % Basophils % 1 % Neutrophils # 5.6 (1.3-7.7) k/uL Lymphocytes # 1.1 (1.0-4.8) k/uL Monocytes # 0.5 (0-1.0) k/uL Eosinophils # 0.2 (0-0.7) k/uL Basophils # 0.0 (0-0.2) k/uL PT (9.0-12.0) sec INR (<1.2) APTT (22.0-30.0) sec Sodium 139 (137-145) mmol/L Potassium 4.7 (3.5-5.1) mmol/L Chloride 99 (98-107) mmol/L Carbon Dioxide 29 (22-30) mmol/L Anion Gap 11 mmol/L BUN 14 (9-20) mg/dL Creatinine 0.86 (0.66-1.25) mg/dL Est GFR (CKD-EPI)AfAm >90 (>60 ml/min/1.73 sqM) Est GFR (CKD-EPI)NonAf >90 (>60 ml/min/1.73 sqM) Glucose 105 H (74-99) mg/dL Plasma Lactic Acid Joao (0.7-2.0) mmol/L Calcium 10.1 (8.4-10.2) mg/dL Magnesium 1.9 (1.6-2.3) mg/dL Total Bilirubin 0.6 (0.2-1.3) mg/dL AST 27 (17-59) U/L ALT 26 (21-72) U/L Alkaline Phosphatase 47 (38-126) U/L Total Creatine Kinase 144 (55-170) U/L CK-MB (CK-2) 6.6 H (0.0-2.4) ng/mL CK-MB (CK-2) Rel Index 4.6 Troponin I <0.012 (0.000-0.034) ng/mL NT-Pro-B Natriuret Pep pg/mL Total Protein 7.5 (6.3-8.2) g/dL Albumin 4.6 (3.5-5.0) g/dL 01/04/18 01/04/18 01/04/18 Range/Units 13:35 13:35 13:35 WBC (3.8-10.6) k/uL RBC (4.30-5.90) m/uL Hgb (13.0-17.5) gm/dL Hct (39.0-53.0) % MCV (80.0-100.0) fL MCH (25.0-35.0) pg MCHC (31.0-37.0) g/dL RDW (11.5-15.5) % Plt Count (150-450) k/uL Neutrophils % % Lymphocytes % % Monocytes % % Eosinophils % % Basophils % % Neutrophils # (1.3-7.7) k/uL Lymphocytes # (1.0-4.8) k/uL Monocytes # (0-1.0) k/uL Eosinophils # (0-0.7) k/uL Basophils # (0-0.2) k/uL PT 10.2 (9.0-12.0) sec INR 1.0 (<1.2) APTT 23.2 (22.0-30.0) sec Sodium (137-145) mmol/L Potassium (3.5-5.1) mmol/L Chloride (98-107) mmol/L Carbon Dioxide (22-30) mmol/L Anion Gap mmol/L BUN (9-20) mg/dL Creatinine (0.66-1.25) mg/dL Est GFR (CKD-EPI)AfAm (>60 ml/min/1.73 sqM) Est GFR (CKD-EPI)NonAf (>60 ml/min/1.73 sqM) Glucose (74-99) mg/dL Plasma Lactic Acid Joao 1.4 (0.7-2.0) mmol/L Calcium (8.4-10.2) mg/dL Magnesium (1.6-2.3) mg/dL Total Bilirubin (0.2-1.3) mg/dL AST (17-59) U/L ALT (21-72) U/L Alkaline Phosphatase (38-126) U/L Total Creatine Kinase (55-170) U/L CK-MB (CK-2) (0.0-2.4) ng/mL CK-MB (CK-2) Rel Index Troponin I (0.000-0.034) ng/mL NT-Pro-B Natriuret Pep 35 pg/mL Total Protein (6.3-8.2) g/dL Albumin (3.5-5.0) g/dL Critical Care Time Critical Care Time: Yes Total Critical Care Time: 35 Disposition Clinical Impression: Acute exacerbation of chronic obstructive airways disease Disposition: [facility] Condition: Stable Is patient prescribed a controlled substance at d/c from ED?: No Referrals: Naye Doll DO [Primary Care Provider] - 1-2 days Decision to Admit Reason: Admit from EC Decision Date: 01/04/18 Decision Time: 14:54
[2018-01-04 13:53] LABS: Basophils % (A) 1 %; Eosinophils # (A) 0.2 k/uL (0-0.7); Eosinophils % (A) 3 %; HCT 48.6 % (39.0-53.0); HGB 16.3 gm/dL (13.0-17.5); Lymphocytes # (A) 1.1 k/uL (1.0-4.8); Lymphocytes % (A) 14 %; MCH 31.7 pg (25.0-35.0); MCHC 33.6 g/dL (31.0-37.0); MCV 94.2 fL (80.0-100.0); Mean Platelet Volume 7.3; Monocytes # (A) 0.5 k/uL (0-1.0); Monocytes % (A) 7 %; Neutrophils # (A) 5.6 k/uL (1.3-7.7); Neutrophils % (A) 74 %; Platelet Count 202 k/uL (150-450); RBC 5.16 m/uL (4.30-5.90); RDW 13.3 % (11.5-15.5); WBC 7.5 k/uL (3.8-10.6)
[2018-01-04 14:03] LABS: ALT 26 U/L (21-72); AST 27 U/L (17-59); Albumin 4.6 g/dL (3.5-5.0); Alkaline Phosphatase 47 U/L (38-126); Anion Gap 11 mmol/L; Blood Urea Nitrogen 14 mg/dL (9-20); Calcium 10.1 mg/dL (8.4-10.2); Carbon Dioxide 29 mmol/L (22-30); Chloride 99 mmol/L (98-107); Glucose 105 mg/dL (74-99); Magnesium 1.9 mg/dL (1.6-2.3); Partial Thromboplastin Time 23.2 sec (22.0-30.0); Potassium 4.7 mmol/L (3.5-5.1); Prothrombin Time 10.2 sec (9.0-12.0); Sodium 139 mmol/L (137-145); Total Bilirubin 0.6 mg/dL (0.2-1.3); Total Protein 7.5 g/dL (6.3-8.2)
[2018-01-04 14:09] LABS: Creatine Kinase 144 U/L (55-170)
[2018-01-04 14:23] LABS: Creatine Kinase MB 6.6 ng/mL (0.0-2.4); Troponin I <0.012 ng/mL (0.000-0.034)
--- NOTE | 2018-01-04 14:42 | XR ---
EXAMINATION TYPE: XR chest 1V DATE OF EXAM: 01/04/2018 COMPARISON: 02/22/2017 HISTORY: Difficulty in breathing TECHNIQUE: Single frontal view of the chest is obtained. FINDINGS: Hyperinflation suggests COPD and there is basilar consolidation and small effusions. No ov ert failure. Arthropathy of the shoulders. No pneumothorax. Heart size stable. IMPRESSION: 1. COPD with basilar consolidation and small pleural effusion.
[2018-01-04] MEDS ORDERED: ALBUTEROL NEBULIZED 2.5 MG/3 ML INHALATION PRN (14:50)
[2018-01-04] MEDS ORDERED: TEMAZEPAM 15 MG CAP PO PRN (16:01)
[2018-01-04] MEDS ORDERED: HYDROcodone/APAP 5-325MG 1 EACH TAB PO PRN (16:01)
[2018-01-04] MEDS: IPRATROPIUM-ALBUTEROL 3 ML NEB INHALATION PRN (16:14)
[2018-01-04] MEDS: methylPREDNISolone SOD SUCCI 125 MG/2 ML VIAL IV SCH ×2 (16:55→23:31)
[2018-01-04] MEDS ORDERED: AZITHROMYCIN 500 MG in SODIUM CHLORIDE 0.9% 250 ML IVPB SCH (17:00)
[2018-01-04 17:38] LABS: Glucose,Whole Blood 121 mg/dL (75-99)
[2018-01-04] MEDS: INSULIN ASPART 100 UNIT/ML 1 ML 10 ML VIAL SQ SCH ×2 (17:45→21:52)
--- NOTE | 2018-01-04 17:52 | HP ---
HISTORY AND PHYSICAL DATE OF SERVICE: 01/04/2018 CHIEF COMPLAINT: Shortness of breath. HISTORY OF PRESENT ILLNESS: This is a 57-year-old gentleman with a past history of asthma, COPD, sleep apnea , history of anxiety being followed by Dr. Doll in the outpatient setting, apparently was having some infection a few days ago along with other family members. The patient was having increasing shortness of breath and cough and sputum. The patient is also smoking occasional according to the family. Because of increased symptoms, patient came to [facility] and was admitted to the hospital for further evaluation and treatment. The patient had features of acute respiratory failure, bilateral pneumonia suspected also. PAST MEDICAL HISTORY: History of asthma, COPD, history of sleep apnea, kidney stones, anxiety. MEDICATIONS: Prior to admission home medications are: 1. Prednisone 5 mg p.o. daily. 2. Uniphyl 200 mg p.o. b.i.d. 3. Dulera 200 mg 2 puffs b.i.d. 4. DuoNeb q.i.d. p.r.n. 5. Alaina 180 mg p.o. daily. 6. Zithromax 250 mg q.4 p.r.n. 7. Fosamax 70 mg p.o. Thursday. 8. Pro-Air. HFA 2 puffs q.i.d. p.r.n. ALLERGIES: None. FAMILY HISTORY: History of COPD and lung cancer. SOCIAL HISTORY: History of smoking. Occasional alcohol intake. REVIEW OF SYSTEMS: ENT: No diminished vision. No diminished hearing. Cardiovascular: No angina or palpitations. Respiratory: As mentioned earlier. GI: No nausea or vomiting. no dysuria. Nervous system: No numbness or weakness. Allergy/Immunology: No asthma or hayfever. Musculoskeletal as mentioned earlier. HEMATOLOGY/ONCOLOGY: No history of anemia. Endocrine: No history of diabetes or hypothyroidism. Constitutional: As mentioned earlier. Dermatology: Negative. Rheumatology: Negative. Psychiatry: As mentioned earlier. PHYSICAL EXAMINATION: Alert and oriented times three. Pulse is 106. Blood pressure 136/94, respiration 20, temp normal, pulse ox 97% on BiPAP. BiPAP settings are noted. HEENT: Conjunctivae normal. Oral mucosa moist. Neck is no jugular venous distention. No carotid bruit. No lymph node enlargement. Cardiovascular systems: S1, S2. Respiration: Breath sounds diminished in the bases. Bilateral scattered rhonchi and expiratory wheezing and crackles. Breathing efforts are markedly increased. Patient is wearing BiPAP system. ABDOMEN: Soft, nontender. No mass palpable. Legs: No edema. No swelling. NERVOUS SYSTEM: Higher functions as mentioned earlier. Moves all four extremities. No focal deficits. Lymphatics: No lymph nodes palpable in the neck, axillae or groin. Skin: No ulcer, no rash. No bleeding. LABS: WBC 7.0, hemoglobin 16.2. Other labs are noted. ASSESSMENT: 1. Chronic obstructive pulmonary disease acute exacerbation with possible acute purulent tracheobronchitis. 2. Bibasilar bronchopneumonia with acute hypoxic respiratory failure on BiPAP. 3. Continued ongoing nicotine dependence. 4. History of asthma. 5. Obstructive sleep apnea, on CPAP at home. 6. History of nephrolithiasis. 7. Hernia repair. 8. History of anxiety. RECOMMENDATIONS AND DISCUSSION: This 57-year-old gentleman who presented with multiple complex medical issues, we will monitor the patient closely. Continue the current medications, management and symptomatic treatment. Optimize bronchodilator treatment. IV antibiotics. IV steroids. Bronchodilators. Consult Dr. Reynoso. Guarded prognosis because of multiple complex medical issues. Further recommendations to follow. Copy of dictation being forwarded to Dr. Doll who is the primary physician. MMODL / IJN: [id number] / MTDD
[2018-01-04] MEDS: FORMOTEROL FUMARATE 20 MCG/2 ML NEBU INHALATION SCH (20:44)
[2018-01-04] MEDS: IPRATROPIUM-ALBUTEROL 3 ML NEB INHALATION SCH (20:44)
[2018-01-04] MEDS: BUDESONIDE 1 MG/2 ML NEBU INHALATION SCH (20:45)
[2018-01-04 21:51] LABS: Glucose,Whole Blood 167 mg/dL (75-99)
[2018-01-04] MEDS: THEOPHYLLINE 24 HOUR 200 MG CAP.ER.24H PO SCH (21:51)
[2018-01-04] MEDS: HEPARIN SODIUM,PORCINE 5,000 UNIT/ML 1 ML VIAL SQ SCH (21:52)
[2018-01-05] MEDS: methylPREDNISolone SOD SUCCI 125 MG/2 ML VIAL IV SCH ×4 (05:38→23:59)
[2018-01-05 05:52] LABS: Hemoglobin A1C 5.5 % (4.0-6.0)
[2018-01-05 06:03] LABS: Anion Gap 8 mmol/L; Blood Urea Nitrogen 15 mg/dL (9-20); Calcium 9.3 mg/dL (8.4-10.2); Carbon Dioxide 30 mmol/L (22-30); Chloride 100 mmol/L (98-107); Glucose 132 mg/dL (74-99); Potassium 4.8 mmol/L (3.5-5.1); Sodium 138 mmol/L (137-145)
[2018-01-05 06:17] LABS: Basophils % (A) 0 %; Eosinophils % (A) 0 %; HCT 42.1 % (39.0-53.0); HGB 14.7 gm/dL (13.0-17.5); Lymphocytes # (A) 0.5 k/uL (1.0-4.8); Lymphocytes % (A) 8 %; MCH 32.8 pg (25.0-35.0); MCHC 34.9 g/dL (31.0-37.0); MCV 94.1 fL (80.0-100.0); Mean Platelet Volume 8.1; Monocytes # (A) 0.2 k/uL (0-1.0); Monocytes % (A) 3 %; Neutrophils # (A) 5.6 k/uL (1.3-7.7); Neutrophils % (A) 88 %; Platelet Count 174 k/uL (150-450); RBC 4.47 m/uL (4.30-5.90); WBC 6.3 k/uL (3.8-10.6)
[2018-01-05 06:40] LABS: Glucose,Whole Blood 129 mg/dL (75-99)
[2018-01-05] MEDS: INSULIN ASPART 100 UNIT/ML 1 ML 10 ML VIAL SQ SCH ×4 (06:50→20:57)
[2018-01-05] MEDS: LEVOFLOXACIN 500 MG TAB PO SCH (08:34)
[2018-01-05] MEDS: THEOPHYLLINE 24 HOUR 200 MG CAP.ER.24H PO SCH ×2 (08:34→20:58)
[2018-01-05] MEDS: HEPARIN SODIUM,PORCINE 5,000 UNIT/ML 1 ML VIAL SQ SCH ×2 (08:34→20:58)
[2018-01-05] MEDS: LORATADINE 10 MG TAB PO SCH (08:34)
[2018-01-05] MEDS: BUDESONIDE 1 MG/2 ML NEBU INHALATION SCH ×2 (09:00→20:25)
[2018-01-05] MEDS: FORMOTEROL FUMARATE 20 MCG/2 ML NEBU INHALATION SCH ×2 (09:00→20:25)
[2018-01-05] MEDS: IPRATROPIUM-ALBUTEROL 3 ML NEB INHALATION SCH ×4 (09:00→20:25)
[2018-01-05 11:23] LABS: Glucose,Whole Blood 142 mg/dL (75-99)
[2018-01-05] MEDS: MULTIVITAMINS, THERA 1 EACH TAB PO SCH (12:34)
[2018-01-05] MEDS ORDERED: PROMETHAZ-COD 6.25-10 MG/5 ML 5 ML CUP PO PRN (14:55)
[2018-01-05] MEDS: BENZONATATE 100 MG CAP PO PRN (15:29)
--- NOTE | 2018-01-05 15:35 | P.CNPUL ---
History of Present Illness Consult date: 01/05/18 Reason for consult: dyspnea, cough, COPD, hypoxemia, pulmonary hypertension, abnormal CXR/CT Chief complaint: Shortness of breath, COPD exacerbation History of present illness: Pulmonary and critical care consultation dated 01/05/2018 This is a 57-year-old male with a history of severe COPD. He states that over the last week, he had worsening shortness of breath and cough. He is coughing up some phlegm not a lot. He's been using his updrafts unit home without much benefit. He is also been using his oxygen. Denies any fever or chills. Not coughing up any blood. There is no chest pain or chest discomfort. No palpitations. No nausea vomiting or diarrhea. The patient continues to smoke cigarettes. His past medical history includes COPD, osteoporosis, sleep apnea syndrome, kidney stones and a previous hernia repair. Unfortunately as mentioned above, the patient continues to smoke cigarettes more than a pack a day. The patient states that the updrafts seem to be making his breathing worse. He has been using his updraft machine at home though. He has NO KNOWN DRUG ALLERGIES. Review of Systems A 14 point review of system is positive for shortness breath chest tightness wheezing cough and minimal phlegm production. No fever chills chest pain chest discomfort and nausea vomiting or diarrhea. Past Medical History Past Medical History: Asthma, COPD, Sleep Apnea/CPAP/BIPAP Additional Past Medical History / Comment(s): kidney stones, CPAP/oxygen at night. History of Any Multi-Drug Resistant Organisms: None Reported Past Surgical History: Hernia Repair Additional Past Surgical History / Comment(s): . Past Anesthesia/Blood Transfusion Reactions: No Reported Reaction Additional Past Anesthesia/Blood Transfusion Reaction / Comment(s): no blood transfusions Smoking Status: Current every day smoker - Past Family History Father Family Medical History: COPD Additional Family Medical History / Comment(s): of lung cancer Mother Family Medical History: Asthma Medications and Allergies Home Medications Medication Instructions Recorded Confirmed Type Fexofenadine HCl [Alaina Allergy] 180 mg PO DAILY 03/21/15 01/04/18 History Mometasone/Formoterol [Dulera 200 2 puff INHALATION RT-BID 03/21/15 01/04/18 History Mcg/5 Mcg Inhaler] Albuterol Sulfate [Proair Hfa] 2 puff INHALATION RT-QID PRN 07/28/16 01/04/18 History Alendronate Sodium [Fosamax] 70 mg PO DE LA CRUZ 07/28/16 01/04/18 History Theophylline Anhydrous [Uniphyl] 200 mg PO BID 12/20/16 01/04/18 History predniSONE 5 mg PO DAILY #0 12/23/16 01/04/18 Rx Azithromycin [Zithromax] 250 mg PO Q48H 01/04/18 01/04/18 History Ipratropium-Albuterol Nebulize 3 ml INHALATION RT-QID PRN 01/04/18 01/04/18 History [Duoneb 0.5 mg-3 mg/3 ml Soln] Allergies Allergy/AdvReac Type Severity Reaction Status Date / Time No Known Allergies Allergy Verified 01/04/18 13:41 Physical Exam Osteopathic Statement: *. No significant issues noted on an osteopathic structural exam other than those noted in the History and Physical/Consult. Vitals: Vital Signs Temp Pulse Pulse Resp BP BP Pulse Ox 01/05/18 11:49 124 H 01/05/18 11:39 116 H 01/05/18 11:31 98.2 F 129 H 20 154/88 92 L 01/05/18 09:32 120 H 01/05/18 09:18 120 H 01/05/18 09:16 120 H 01/05/18 09:01 112 H 01/05/18 07:52 98.1 F 123 H 20 131/76 96 01/05/18 04:00 98 F 95 20 125/84 97 01/04/18 23:51 98.4 F 90 20 122/86 96 01/04/18 23:49 110 H 20 01/04/18 21:06 115 H 01/04/18 21:00 108 H 01/04/18 20:47 108 H 01/04/18 20:00 97.8 F 110 H 20 133/90 90 L 01/04/18 16:25 106 H 01/04/18 16:17 102 H 01/04/18 16:00 97.4 F L 113 H 24 144/92 01/04/18 15:26 106 H 20 137/94 97 Intake and Output 01/05/18 01/05/18 01/05/18 06:59 14:59 22:59 Intake Total 480 Balance 480 Intake: Oral 480 Other: # Voids 2 Weight 68.9 kg Mild respiratory distress, oriented 3. Nasal O2 in place. The patient appears to be tachypnea and dyspneic. No audible wheezing. HEENT examination is grossly unremarkable. Mucous membranes are moist. No oral lesions. Neck supple. Full range of motion. No adenopathy thyromegaly or neck vein distention. Cardiovascular examination reveals regular rhythm rate. S1-S2 normal. No S3 or S4. No discernible murmur noted. Heart sounds are distant. Lungs reveal severely diminished breath sounds throughout. This some high- pitched inspiratory and expiratory wheezes or rhonchi. A few scattered crackles are noted. Breath sounds are equal bilaterally but severely diminished throughout. There is prolongation on forced maneuver. The patient' s adventitious lung sounds are more prominent on forced maneuver. Abdomen soft and bowel sounds are heard. No masses or tenderness. Extremities are intact. No cyanosis clubbing or edema. Skin is without rash or lesion. Neurologic examination is brief but nonfocal. Results - Laboratory Findings CBC and BMP: 01/05/18 04:59 01/05/18 04:59 PT/INR, D-dimer PT 10.2 sec (9.0-12.0) 01/04/18 13:35 INR 1.0 (<1.2) 01/04/18 13:35 Abnormal lab findings: Abnormal Labs 01/04/18 01/04/18 01/04/18 13:35 13:35 17:35 Lymphocytes # Glucose 105 H POC Glucose (mg/dL) 121 H CK-MB (CK-2) 6.6 H 01/04/18 01/05/18 01/05/18 21:48 04:59 04:59 Lymphocytes # 0.5 L Glucose 132 H POC Glucose (mg/dL) 167 H CK-MB (CK-2) 01/05/18 01/05/18 06:39 11:19 Lymphocytes # Glucose POC Glucose (mg/dL) 129 H 142 H CK-MB (CK-2) - Diagnostic Findings Chest x-ray: report reviewed, image reviewed (Labs, x-rays and medications are reviewed.) Assessment and Plan Assessment: Assessment COPD exacerbation complicated by tracheobronchitis Acute on chronic hypoxemic respiratory failure History of ongoing tobacco use with nicotine addiction her graft osteoporosis Probable secondary pulmonary hypertension History of sleep apnea syndrome, currently on CPAP History of kidney stones Status post hernia repair History of anxiety Plan: Plan dated 01/05/2018 The patient's medications are reviewed. Labs and x-rays are reviewed. White count is 6.3, hemoglobin 14.7, hematocrit 42.1 and platelet count 174,000. Sodium potassium chloride CO2 all normal. Anion gap is normal. Renal function is normal. Influenza studies are both negative. Currently, the patient is on DuoNeb's 4 times a day and when necessary, Pulmicort 1 mg twice a day from overall 20 g twice a day, theophylline 24-hour 200 mg twice a day Phenergan with codeine cough syrup 4 times a day and Solu-Medrol 60 mg every 6 hours. In addition, the patient is on Levaquin 500 mg a day. He is also on ceftriaxone the neck and be discontinued. The patient should also receive a nicotine patch. Prognosis is guarded. Additional recommendations and suggestions are forthcoming. Time with Patient: Greater than 30
[2018-01-05 16:21] LABS: Glucose,Whole Blood 143 mg/dL (75-99)
[2018-01-05] MEDS: AZITHROMYCIN 500 MG TAB PO SCH (17:40)
[2018-01-05] MEDS: ALPRAZolam 0.25 MG TAB PO PRN (18:10)
--- NOTE | 2018-01-05 19:50 | PN ---
PROGRESS NOTE DATE OF SERVICE: 01/05/2018 This 57-year-old gentleman who was admitted with COPD, acute exacerbation, with possible acute purulent tracheobronchitis is being closely monitored. Patient is feeling slightly better. No chest pain. No palpitations. No fever. The patient still has significant shortness of breath. Dr. Reynoso is following the patient closely. On exam, alert and oriented x3. Pulse is 105, blood pressure 146/93, respiration 22, temperature 98.1, pulse ox 94% on room air. HEENT: Conjunctivae normal. Oral mucosa moist. NECK: No jugular venous distention. CARDIOVASCULAR SYSTEM: S1, S2 muffled. RESPIRATORY SYSTEM: Breath sounds diminished at the bases. Bilateral scattered rhonchi and crackles. Expiratory wheezing. ABDOMEN: Soft, non-tender. No mass palpable. LEGS: No edema. No swelling. NERVOUS SYSTEM: No focal deficit. LABS: CBC within normal limits. Glucose 132, 129, 142. ASSESSMENT: 1. Severe chronic obstructive pulmonary disease, acute exacerbation, with acute purulent tracheobronchitis. 2. Bibasilar bronchopneumonia with acute hypoxic respiratory failure, status post BiPAP. 3. Continued ongoing nicotine dependence. 4. History of asthma. 5. Obstructive sleep apnea. CPAP at home. 6. History of nephrolithiasis. 7. History of hernia repair. 8. History of anxiety. RECOMMENDATIONS AND DISCUSSION: I recommend to continue current medication, continue symptomatic treatment. Continue with the bronchodilators. Continue with the antibiotics. Closely follow with Dr. Reynoso. Guarded prognosis because of multiple complex medical issues. Further recommendations to follow. MMODL / IJN: [id number] /
[2018-01-05 20:36] LABS: Glucose,Whole Blood 172 mg/dL (75-99)
[2018-01-05 23:40] LABS: Glucose,Whole Blood 140 mg/dL (75-99)
[2018-01-06] MEDS: methylPREDNISolone SOD SUCCI 125 MG/2 ML VIAL IV SCH ×3 (05:25→17:53)
[2018-01-06 06:55] LABS: Glucose,Whole Blood 139 mg/dL (75-99)
[2018-01-06] MEDS: BUDESONIDE 1 MG/2 ML NEBU INHALATION SCH ×2 (07:52→19:15)
[2018-01-06] MEDS: FORMOTEROL FUMARATE 20 MCG/2 ML NEBU INHALATION SCH ×2 (07:52→19:15)
[2018-01-06] MEDS: IPRATROPIUM-ALBUTEROL 3 ML NEB INHALATION SCH ×4 (07:52→19:15)
[2018-01-06] MEDS: ALPRAZolam 0.25 MG TAB PO PRN ×2 (08:30→16:47)
[2018-01-06] MEDS: LORATADINE 10 MG TAB PO SCH (08:30)
[2018-01-06] MEDS: INSULIN ASPART 100 UNIT/ML 1 ML 10 ML VIAL SQ SCH ×4 (08:31→21:34)
[2018-01-06] MEDS: HEPARIN SODIUM,PORCINE 5,000 UNIT/ML 1 ML VIAL SQ SCH ×2 (08:31→21:34)
[2018-01-06] MEDS: LEVOFLOXACIN 500 MG TAB PO SCH (08:55)
[2018-01-06] MEDS: THEOPHYLLINE 24 HOUR 200 MG CAP.ER.24H PO SCH ×2 (08:55→21:08)
[2018-01-06 10:06] LABS: Basophils % (A) 0 %; Eosinophils % (A) 0 %; Lymphocytes # (A) 0.3 k/uL (1.0-4.8); Lymphocytes % (A) 3 %; MCH 31.9 pg (25.0-35.0); MCHC 33.3 g/dL (31.0-37.0); MCV 95.8 fL (80.0-100.0); Mean Platelet Volume 8.2; Monocytes # (A) 0.2 k/uL (0-1.0); Monocytes % (A) 1 %; Neutrophils # (A) 11.5 k/uL (1.3-7.7); Neutrophils % (A) 95 %; Platelet Count 180 k/uL (150-450); RBC 4.38 m/uL (4.30-5.90); RDW 13.1 % (11.5-15.5); WBC 12.1 k/uL (3.8-10.6)
[2018-01-06 10:35] LABS: Anion Gap 9 mmol/L; Blood Urea Nitrogen 17 mg/dL (9-20); Calcium 9.4 mg/dL (8.4-10.2); Carbon Dioxide 33 mmol/L (22-30); Chloride 99 mmol/L (98-107); Glucose 240 mg/dL (74-99); Potassium 4.7 mmol/L (3.5-5.1); Sodium 141 mmol/L (137-145)
[2018-01-06] MEDS: BENZONATATE 100 MG CAP PO PRN (11:22)
[2018-01-06 11:30] LABS: Glucose,Whole Blood 168 mg/dL (75-99)
[2018-01-06] MEDS: PROMETHAZ-COD 6.25-10 MG/5 ML 5 ML CUP PO SCH ×2 (12:51→17:53)
[2018-01-06] MEDS: MULTIVITAMINS, THERA 1 EACH TAB PO SCH (12:51)
--- NOTE | 2018-01-06 13:17 | P.PN ---
Subjective Progress Note Date: 01/06/18 Principal diagnosis: Acute on chronic hypoxic respiratory failure secondary to an acute exacerbation of chronic obstructive pulmonary disease. Pulmonary and critical care consultation dated 01/05/2018 This is a 57-year-old male with a history of severe COPD. He states that over the last week, he had worsening shortness of breath and cough. He is coughing up some phlegm not a lot. He's been using his updrafts unit home without much benefit. He is also been using his oxygen. Denies any fever or chills. Not coughing up any blood. There is no chest pain or chest discomfort. No palpitations. No nausea vomiting or diarrhea. The patient continues to smoke cigarettes. His past medical history includes COPD, osteoporosis, sleep apnea syndrome, kidney stones and a previous hernia repair. Unfortunately as mentioned above, the patient continues to smoke cigarettes more than a pack a day. The patient states that the updrafts seem to be making his breathing worse. He has been using his updraft machine at home though. He has NO KNOWN DRUG ALLERGIES. Progress note dated 01/06/2018 The patient is seen again today in follow-up on the regular medical floor. He is awake and alert. He is in mild pulmonary distress. He had been utilizing the BiPAP through most of the evening and this morning. Currently off the BiPAP and on 4 L/m per nasal cannula. He is quite short of breath with minimal exertion. This making conversation as well. He's been afebrile. Tachypneic. Tachycardic. White count 12.1. Hemoglobin 14.0. Creatinine 0.89. He is on DuoNeb inhalations 4 times a day and when necessary, Pulmicort and Perforomist inhalations twice a day, Tessalon perles, IV Solu-Medrol, theophylline Xanax, antibiotics in the form of Levaquin and azithromycin. Blood cultures reveal no growth. Objective - Vital Signs Vital signs: Vital Signs Temp 97.5 F L 01/06/18 04:55 Pulse 104 H 01/06/18 12:04 Resp 24 01/06/18 04:55 BP 154/96 01/06/18 04:55 Pulse Ox 99 01/06/18 04:55 Intake & Output 01/05/18 01/06/18 01/06/18 18:59 06:59 18:59 Intake Total 720 220 Balance 720 220 Intake: Oral 720 220 Other: # Voids 2 1 - Exam GENERAL EXAM: Alert, and mild pulmonary distress. HEAD: Normocephalic. EYES: Normal reaction of pupils, equal size. NOSE: Clear with pink turbinates. THROAT: No erythema or exudates. NECK: No masses, no JVD. CHEST: No chest wall deformity. LUNGS: Equal air entry with few scattered rhonchi, bilateral end expiratory wheeze, diminished CVS: S1 and S2 normal with no audible murmur, regular rhythm. ABDOMEN: No hepatosplenomegaly, normal bowel sounds, no guarding or rigidity. SPINE: No scoliosis or deformity SKIN: No rashes CENTRAL NERVOUS SYSTEM: No focal deficits, tone is normal in all 4 extremities. EXTREMITIES: There is no peripheral edema. No clubbing, no cyanosis. Peripheral pulses are intact. - Labs CBC & Chem 7: 01/06/18 09:33 01/06/18 09:33 Labs: Abnormal Lab Results - Last 24 Hours (Table) 01/05/18 01/05/18 01/05/18 Range/Units 16:02 20:34 23:39 WBC (3.8-10.6) k/uL Neutrophils # (1.3-7.7) k/uL Lymphocytes # (1.0-4.8) k/uL Carbon Dioxide (22-30) mmol/L Glucose (74-99) mg/dL POC Glucose (mg/dL) 143 H 172 H 140 H (75-99) mg/dL 01/06/18 01/06/18 01/06/18 Range/Units 06:54 09:33 09:33 WBC 12.1 H (3.8-10.6) k/uL Neutrophils # 11.5 H (1.3-7.7) k/uL Lymphocytes # 0.3 L (1.0-4.8) k/uL Carbon Dioxide 33 H (22-30) mmol/L Glucose 240 H (74-99) mg/dL POC Glucose (mg/dL) 139 H (75-99) mg/dL 01/06/18 Range/Units 11:28 WBC (3.8-10.6) k/uL Neutrophils # (1.3-7.7) k/uL Lymphocytes # (1.0-4.8) k/uL Carbon Dioxide (22-30) mmol/L Glucose (74-99) mg/dL POC Glucose (mg/dL) 168 H (75-99) mg/dL Microbiology - Last 24 Hours (Table) 01/05/18 10:00 Urine Culture - Final Urine,Voided 01/04/18 13:35 Blood Culture - Preliminary Blood No Growth after 24 hours Assessment and Plan Assessment: Assessment COPD exacerbation complicated by tracheobronchitis Acute on chronic hypoxemic respiratory failure History 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 Reynoso. He is on maximal amounts of pulmonary medications. The patient is utilizing Xanax for his anxiety as well. He'll continue to utilize the BiPAP as needed. Did discuss with the patient potential need for mechanical life support if his condition deteriorates. We also again encouraged patient to completely stop smoking. A NicoDerm patch has been ordered. We will continue to follow make further recommendations based on his clinical status. I, the cosigning physician, performed a history & physical examination of the patient. Lungs sounds have few scattered rhonchi, bilateral end expiratory wheeze, diminished. Maintaining good O2 saturations in the 90s on 4 L/m per nasal cannula. I discussed the assessment and plan of care with my nurse practitioner, Donna Neri. I attest to the above note as dictated by her.
[2018-01-06] MEDS: NICOTINE 14MG/24HR PATCH TRANSDERM SCH (16:44)
[2018-01-06 17:07] LABS: Glucose,Whole Blood 177 mg/dL (75-99)
--- NOTE | 2018-01-06 17:27 | PN ---
PROGRESS NOTE DATE OF SERVICE: 01/06/2018 This 57-year-old gentleman admitted with COPD acute exacerbation, still has significant shortness of breath and cough and sputum also. The patient is on and off BiPAP at this time. Patient is on IV steroids and bronchodilators. Dr. Reynoso is following very closely. PHYSICAL EXAM: Alert and oriented times three. Pulse is 99. Blood pressure 154/93, respirations 24, temperature 97.2, pulse ox 99 percent on BIPAP. HEENT: Conjunctivae normal. Oral mucosa moist. Neck is no jugular venous distention. No carotid bruit. No lymph node enlargement. Cardiovascular: S1, S2 muffled. RESPIRATORY: Breath sounds diminished in the bases. Bilateral scattered rhonchi and crackles. Expiratory wheezing also present. Patient on BiPAP. ABDOMEN: Soft, nontender. No mass palpable. Legs are no edema. No swelling. Central nervous system: No focal deficits. LABS: At this time shows WBC 12.1, otherwise sodium 140, potassium 4.7. ASSESSMENT: 1. Chronic obstructive pulmonary disease, severe acute exacerbation with acute purulent tracheobronchitis. 2. Bibasilar bronchopneumonia with acute hypoxic respiratory failure status post BiPAP. 3. Continued ongoing nicotine dependence. 4. History of asthma. 5. Obstructive sleep apnea on BiPAP at home. 6. History of nephrolithiasis. 7. History of hernia repair. 8. History of anxiety. RECOMMENDATIONS AND DISCUSSION: Recommend to continue current medications, monitoring and symptomatic treatment. Continue the bronchodilators. Continue with IV steroids. Continue the rest of the medications. Continue the BiPAP. Prognosis guarded because of multiple complex medical issues. Patient is making very slow improvement at this time. Further recommendations to follow. MMODL / IJN: [id number] /
[2018-01-06] MEDS: AZITHROMYCIN 500 MG TAB PO SCH (18:08)
[2018-01-06 21:00] LABS: Glucose,Whole Blood 188 mg/dL (75-99)
[2018-01-07] MEDS: PROMETHAZ-COD 6.25-10 MG/5 ML 5 ML CUP PO SCH ×5 (01:00→23:38)
[2018-01-07] MEDS: methylPREDNISolone SOD SUCCI 125 MG/2 ML VIAL IV SCH ×5 (01:00→23:38)
[2018-01-07] MEDS: ALPRAZolam 0.25 MG TAB PO PRN ×3 (01:02→17:32)
[2018-01-07 06:56] LABS: Glucose,Whole Blood 130 mg/dL (75-99)
[2018-01-07] MEDS: INSULIN ASPART 100 UNIT/ML 1 ML 10 ML VIAL SQ SCH ×4 (07:25→21:21)
[2018-01-07 07:47] LABS: Basophils % (A) 0 %; Eosinophils % (A) 0 %; HCT 42.6 % (39.0-53.0); HGB 13.6 gm/dL (13.0-17.5); Lymphocytes # (A) 0.4 k/uL (1.0-4.8); Lymphocytes % (A) 3 %; MCH 30.8 pg (25.0-35.0); MCHC 31.9 g/dL (31.0-37.0); MCV 96.6 fL (80.0-100.0); Mean Platelet Volume 7.2; Monocytes # (A) 0.3 k/uL (0-1.0); Monocytes % (A) 2 %; Neutrophils # (A) 12.4 k/uL (1.3-7.7); Neutrophils % (A) 94 %; Platelet Count 187 k/uL (150-450); RBC 4.41 m/uL (4.30-5.90); RDW 13.3 % (11.5-15.5); WBC 13.2 k/uL (3.8-10.6)
[2018-01-07 07:59] LABS: Anion Gap 4 mmol/L; Blood Urea Nitrogen 18 mg/dL (9-20); Calcium 9.4 mg/dL (8.4-10.2); Carbon Dioxide 36 mmol/L (22-30); Chloride 101 mmol/L (98-107); Glucose 131 mg/dL (74-99); Potassium 5.1 mmol/L (3.5-5.1); Sodium 141 mmol/L (137-145)
[2018-01-07] MEDS: FORMOTEROL FUMARATE 20 MCG/2 ML NEBU INHALATION SCH ×2 (08:05→19:28)
[2018-01-07] MEDS: IPRATROPIUM-ALBUTEROL 3 ML NEB INHALATION SCH ×4 (08:05→19:29)
[2018-01-07] MEDS: BUDESONIDE 1 MG/2 ML NEBU INHALATION SCH ×2 (08:05→19:29)
[2018-01-07] MEDS: NICOTINE 14MG/24HR PATCH TRANSDERM SCH (09:36)
[2018-01-07] MEDS: HEPARIN SODIUM,PORCINE 5,000 UNIT/ML 1 ML VIAL SQ SCH ×2 (09:43→21:21)
[2018-01-07] MEDS: LEVOFLOXACIN 500 MG TAB PO SCH (09:44)
[2018-01-07] MEDS: LORATADINE 10 MG TAB PO SCH (09:44)
[2018-01-07] MEDS: THEOPHYLLINE 24 HOUR 200 MG CAP.ER.24H PO SCH ×2 (09:44→21:21)
[2018-01-07 11:15] LABS: Glucose,Whole Blood 193 mg/dL (75-99)
[2018-01-07] MEDS: MULTIVITAMINS, THERA 1 EACH TAB PO SCH (12:56)
--- NOTE | 2018-01-07 13:15 | P.PN ---
Subjective Progress Note Date: 01/07/18 Principal diagnosis: Acute on chronic hypoxic respiratory failure secondary to an acute exacerbation of chronic obstructive pulmonary disease. Pulmonary and critical care consultation dated 01/05/2018 This is a 57-year-old male with a history of severe COPD. He states that over the last week, he had worsening shortness of breath and cough. He is coughing up some phlegm not a lot. He's been using his updrafts unit home without much benefit. He is also been using his oxygen. Denies any fever or chills. Not coughing up any blood. There is no chest pain or chest discomfort. No palpitations. No nausea vomiting or diarrhea. The patient continues to smoke cigarettes. His past medical history includes COPD, osteoporosis, sleep apnea syndrome, kidney stones and a previous hernia repair. Unfortunately as mentioned above, the patient continues to smoke cigarettes more than a pack a day. The patient states that the updrafts seem to be making his breathing worse. He has been using his updraft machine at home though. He has NO KNOWN DRUG ALLERGIES. Progress note dated 01/06/2018 The patient is seen again today in follow-up on the regular medical floor. He is awake and alert. He is in mild pulmonary distress. He had been utilizing the BiPAP through most of the evening and this morning. Currently off the BiPAP and on 4 L/m per nasal cannula. He is quite short of breath with minimal exertion. This making conversation as well. He's been afebrile. Tachypneic. Tachycardic. White count 12.1. Hemoglobin 14.0. Creatinine 0.89. He is on DuoNeb inhalations 4 times a day and when necessary, Pulmicort and Perforomist inhalations twice a day, Tessalon perles, IV Solu-Medrol, theophylline Xanax, antibiotics in the form of Levaquin and azithromycin. Blood cultures reveal no growth. Progress note dated 01/07/2018 The patient is seen again today in follow-up on the regular medical floor. He is awake and alert in no significant distress. He is currently resting in bed on the BiPAP. Settings of 12/8 at 50% FiO2. He states he is breathing easier today as compared to yesterday. He is a little more comfortable and relaxed. He remains slightly tachypneic and tachycardic. He is afebrile. Blood and urine cultures reveal no growth. White count 13.2. Hemoglobin 13.6. Creatinine 0.83. Objective - Vital Signs Vital signs: Vital Signs Temp 96.5 F L 01/07/18 12:12 Pulse 112 H 01/07/18 12:15 Resp 36 H 01/07/18 12:15 BP 141/98 01/07/18 12:12 Pulse Ox 99 01/07/18 12:12 Intake & Output 01/06/18 01/07/18 01/07/18 18:59 06:59 18:59 Intake Total 1060 Balance 1060 Intake: Oral 1060 Other: Voiding Method Toilet # Voids 1 2 - Exam GENERAL EXAM: Alert, and mild pulmonary distress. Currently on the BiPAP HEAD: Normocephalic. EYES: Normal reaction of pupils, equal size. NOSE: Clear with pink turbinates. THROAT: No erythema or exudates. NECK: No masses, no JVD. CHEST: No chest wall deformity. LUNGS: Equal air entry with few scattered rhonchi, bilateral end expiratory wheeze, diminished CVS: S1 and S2 normal with no audible murmur, regular rhythm. ABDOMEN: No hepatosplenomegaly, normal bowel sounds, no guarding or rigidity. SPINE: No scoliosis or deformity SKIN: No rashes CENTRAL NERVOUS SYSTEM: No focal deficits, tone is normal in all 4 extremities. EXTREMITIES: There is no peripheral edema. No clubbing, no cyanosis. Peripheral pulses are intact. - Labs CBC & Chem 7: 01/07/18 07:27 01/07/18 07:27 Labs: Abnormal Lab Results - Last 24 Hours (Table) 01/06/18 01/06/18 01/07/18 Range/Units 17:05 20:59 06:54 WBC (3.8-10.6) k/uL Neutrophils # (1.3-7.7) k/uL Lymphocytes # (1.0-4.8) k/uL Carbon Dioxide (22-30) mmol/L Glucose (74-99) mg/dL POC Glucose (mg/dL) 177 H 188 H 130 H (75-99) mg/dL 01/07/18 01/07/18 01/07/18 Range/Units 07:27 07:27 11:13 WBC 13.2 H (3.8-10.6) k/uL Neutrophils # 12.4 H (1.3-7.7) k/uL Lymphocytes # 0.4 L (1.0-4.8) k/uL Carbon Dioxide 36 H (22-30) mmol/L Glucose 131 H (74-99) mg/dL POC Glucose (mg/dL) 193 H (75-99) mg/dL Microbiology - Last 24 Hours (Table) 01/04/18 13:35 Blood Culture - Preliminary Blood No Growth after 48 hours 01/05/18 10:00 Urine Culture - Final Urine,Voided Assessment and Plan Assessment: Assessment COPD exacerbation complicated by tracheobronchitis Acute on chronic hypoxemic respiratory failure History 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 Reynoso. He is feeling slightly better today compared to yesterday. He'll continue to utilize the BiPAP as needed. Did discuss with the patient potential need for mechanical life support if his condition deteriorates. We also again encouraged patient to completely stop smoking. A NicoDerm patch has been ordered. We will continue to follow and make further recommendations based on his clinical status. I, the cosigning physician, performed a history & physical examination of the patient. Lungs sounds have few scattered rhonchi, bilateral end expiratory wheeze, diminished. Maintaining good O2 saturations in the 90s on 50% FiO2 on the BiPAP 01/16.. I discussed the assessment and plan of care with my nurse practitioner, Donna Neri. I attest to the above note as dictated by her.
[2018-01-07 16:58] LABS: Glucose,Whole Blood 119 mg/dL (75-99)
[2018-01-07] MEDS: AZITHROMYCIN 500 MG TAB PO SCH (17:32)
[2018-01-07 20:32] LABS: Glucose,Whole Blood 165 mg/dL (75-99)
[2018-01-07] MEDS: BENZONATATE 100 MG CAP PO PRN (21:22)
[2018-01-07] MEDS: IPRATROPIUM-ALBUTEROL 3 ML NEB INHALATION PRN (23:30)
[2018-01-08] MEDS: IPRATROPIUM-ALBUTEROL 3 ML NEB INHALATION PRN (03:10)
[2018-01-08] MEDS: PROMETHAZ-COD 6.25-10 MG/5 ML 5 ML CUP PO SCH ×4 (06:17→23:37)
[2018-01-08] MEDS: methylPREDNISolone SOD SUCCI 125 MG/2 ML VIAL IV SCH ×4 (06:17→23:36)
[2018-01-08] MEDS: ALPRAZolam 0.25 MG TAB PO PRN ×2 (06:21→16:54)
[2018-01-08] MEDS: FORMOTEROL FUMARATE 20 MCG/2 ML NEBU INHALATION SCH ×2 (06:58→19:11)
[2018-01-08] MEDS: IPRATROPIUM-ALBUTEROL 3 ML NEB INHALATION SCH ×4 (06:58→19:11)
[2018-01-08] MEDS: BUDESONIDE 1 MG/2 ML NEBU INHALATION SCH ×2 (06:58→19:11)
[2018-01-08 07:11] LABS: Glucose,Whole Blood 152 mg/dL (75-99)
[2018-01-08] MEDS: INSULIN ASPART 100 UNIT/ML 1 ML 10 ML VIAL SQ SCH ×4 (08:10→21:11)
[2018-01-08 08:39] LABS: Basophils % (A) 0 %; Eosinophils % (A) 0 %; HCT 42.6 % (39.0-53.0); HGB 13.5 gm/dL (13.0-17.5); Lymphocytes # (A) 0.4 k/uL (1.0-4.8); Lymphocytes % (A) 3 %; MCH 30.9 pg (25.0-35.0); MCHC 31.6 g/dL (31.0-37.0); MCV 97.9 fL (80.0-100.0); Mean Platelet Volume 7.4; Monocytes # (A) 0.3 k/uL (0-1.0); Monocytes % (A) 2 %; Neutrophils # (A) 10.9 k/uL (1.3-7.7); Neutrophils % (A) 93 %; Platelet Count 198 k/uL (150-450); RBC 4.35 m/uL (4.30-5.90); RDW 13.2 % (11.5-15.5); WBC 11.7 k/uL (3.8-10.6)
[2018-01-08 08:41] LABS: Anion Gap 6 mmol/L; Blood Urea Nitrogen 18 mg/dL (9-20); Calcium 9.4 mg/dL (8.4-10.2); Carbon Dioxide 36 mmol/L (22-30); Chloride 99 mmol/L (98-107); Glucose 128 mg/dL (74-99); Potassium 4.8 mmol/L (3.5-5.1); Sodium 141 mmol/L (137-145)
[2018-01-08] MEDS: HEPARIN SODIUM,PORCINE 5,000 UNIT/ML 1 ML VIAL SQ SCH ×2 (08:59→21:12)
[2018-01-08] MEDS: LEVOFLOXACIN 500 MG TAB PO SCH (08:59)
[2018-01-08] MEDS: THEOPHYLLINE 24 HOUR 200 MG CAP.ER.24H PO SCH ×2 (09:00→21:12)
[2018-01-08] MEDS: NICOTINE 14MG/24HR PATCH TRANSDERM SCH (09:00)
[2018-01-08] MEDS: LORATADINE 10 MG TAB PO SCH (09:00)
[2018-01-08] MEDS: BENZONATATE 100 MG CAP PO PRN (09:02)
[2018-01-08 11:43] LABS: Glucose,Whole Blood 134 mg/dL (75-99)
[2018-01-08] MEDS: MULTIVITAMINS, THERA 1 EACH TAB PO SCH (12:03)
--- NOTE | 2018-01-08 14:49 | P.PN ---
Subjective Progress Note Date: 01/08/18 Principal diagnosis: Acute on chronic hypoxic respiratory failure secondary to an acute exacerbation of chronic obstructive pulmonary disease. Pulmonary and critical care consultation dated 01/05/2018 This is a 57-year-old male with a history of severe COPD. He states that over the last week, he had worsening shortness of breath and cough. He is coughing up some phlegm not a lot. He's been using his updrafts unit home without much benefit. He is also been using his oxygen. Denies any fever or chills. Not coughing up any blood. There is no chest pain or chest discomfort. No palpitations. No nausea vomiting or diarrhea. The patient continues to smoke cigarettes. His past medical history includes COPD, osteoporosis, sleep apnea syndrome, kidney stones and a previous hernia repair. Unfortunately as mentioned above, the patient continues to smoke cigarettes more than a pack a day. The patient states that the updrafts seem to be making his breathing worse. He has been using his updraft machine at home though. He has NO KNOWN DRUG ALLERGIES. Progress note dated 01/06/2018 The patient is seen again today in follow-up on the regular medical floor. He is awake and alert. He is in mild pulmonary distress. He had been utilizing the BiPAP through most of the evening and this morning. Currently off the BiPAP and on 4 L/m per nasal cannula. He is quite short of breath with minimal exertion. This making conversation as well. He's been afebrile. Tachypneic. Tachycardic. White count 12.1. Hemoglobin 14.0. Creatinine 0.89. He is on DuoNeb inhalations 4 times a day and when necessary, Pulmicort and Perforomist inhalations twice a day, Tessalon perles, IV Solu-Medrol, theophylline Xanax, antibiotics in the form of Levaquin and azithromycin. Blood cultures reveal no growth. Progress note dated 01/07/2018 The patient is seen again today in follow-up on the regular medical floor. He is awake and alert in no significant distress. He is currently resting in bed on the BiPAP. Settings of 12/8 at 50% FiO2. He states he is breathing easier today as compared to yesterday. He is a little more comfortable and relaxed. He remains slightly tachypneic and tachycardic. He is afebrile. Blood and urine cultures reveal no growth. White count 13.2. Hemoglobin 13.6. Creatinine 0.83. RS note dated 01/08/2018 The patient was seen again today in follow-up on the regular medical floor. He is currently resting more comfortably in bed. He is mainly BiPAP dependent. He was off for a while this morning for breakfast. He is still on 50% FiO2. He does admit to being a bit better today as compared to yesterday. Still not back to his baseline. Left tachypneic. Less tachycardic today. He is afebrile. Hemodynamically stable. Blood and urine cultures reveal no growth. White count 11.7. Hemoglobin 13.5. Creatinine 0.81. He remains on IV Solu- Medrol, DuoNeb inhalations, Pulmicort and Perforomist inhalations, theophylline. Objective - Vital Signs Vital signs: Vital Signs Temp 97.9 F 01/08/18 11:38 Pulse 87 01/08/18 11:38 Resp 20 01/08/18 11:38 BP 150/95 01/08/18 11:38 Pulse Ox 100 01/08/18 11:38 Intake & Output 01/07/18 01/08/18 01/08/18 18:59 06:59 18:59 Intake Total 840 Balance 840 Intake: IV 10 0.9 10 Oral 830 Other: Voiding Method Toilet Toilet Toilet # Voids 3 2 - Exam GENERAL EXAM: Alert, and mild pulmonary distress. Currently on the BiPAP at 50 % FiO2. HEAD: Normocephalic. EYES: Normal reaction of pupils, equal size. NOSE: Clear with pink turbinates. THROAT: No erythema or exudates. NECK: No masses, no JVD. CHEST: No chest wall deformity. LUNGS: Equal air entry with few scattered rhonchi, bilateral end expiratory wheeze, diminished CVS: S1 and S2 normal with no audible murmur, regular rhythm. ABDOMEN: No hepatosplenomegaly, normal bowel sounds, no guarding or rigidity. SPINE: No scoliosis or deformity SKIN: No rashes CENTRAL NERVOUS SYSTEM: No focal deficits, tone is normal in all 4 extremities. EXTREMITIES: There is no peripheral edema. No clubbing, no cyanosis. Peripheral pulses are intact. - Labs CBC & Chem 7: 01/08/18 07:14 01/08/18 07:14 Labs: Abnormal Lab Results - Last 24 Hours (Table) 01/07/18 01/07/18 01/08/18 Range/Units 16:56 20:31 07:10 WBC (3.8-10.6) k/uL Neutrophils # (1.3-7.7) k/uL Lymphocytes # (1.0-4.8) k/uL Carbon Dioxide (22-30) mmol/L Glucose (74-99) mg/dL POC Glucose (mg/dL) 119 H 165 H 152 H (75-99) mg/dL 01/08/18 01/08/18 01/08/18 Range/Units 07:14 07:14 11:42 WBC 11.7 H (3.8-10.6) k/uL Neutrophils # 10.9 H (1.3-7.7) k/uL Lymphocytes # 0.4 L (1.0-4.8) k/uL Carbon Dioxide 36 H (22-30) mmol/L Glucose 128 H (74-99) mg/dL POC Glucose (mg/dL) 134 H (75-99) mg/dL Microbiology - Last 24 Hours (Table) 01/04/18 13:35 Blood Culture - Preliminary Blood No Growth after 72 hours Assessment and Plan Assessment: Assessment COPD exacerbation complicated by tracheobronchitis Acute on chronic hypoxemic respiratory failure History 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 Reynoso. He'll continue to utilize the BiPAP as needed. Continue his current treatment plan. We will add Qvar in addition to Pulmicort and his other medications. We also again encouraged the patient to completely stop smoking. A NicoDerm patch has been ordered. We will continue to follow and make further recommendations based on his clinical status. I, the cosigning physician, performed a history & physical examination of the patient. Lungs sounds have few scattered rhonchi, bilateral end expiratory wheeze, diminished. Maintaining good O2 saturations in the 90s on 50% FiO2 on the BiPAP 01/16.. I discussed the assessment and plan of care with my nurse practitioner, Donna Neri. I attest to the above note as dictated by her.
--- NOTE | 2018-01-08 15:16 | P.PN ---
Subjective Progress Note Date: 01/07/18 Progress note being dictated for Dr. Akins. Interval history: This a 57-year-old gentleman admitted with acute COPD exacerbation. Maintained on nebulized bronchodilators, IV steroids, BiPAP prn. Breathing slowly improving, currently wearing BiPAP. Mild tachycardia, tachypneic. Afebrile, WBC 13.2, urine and blood cultures no growth. Blood sugars controlled. Objective - Vital Signs Vital signs: Vital Signs Temp 96.5 F L 01/07/18 12:12 Pulse 88 01/07/18 19:52 Resp 26 H 01/07/18 16:42 BP 142/92 01/07/18 16:42 Pulse Ox 100 01/07/18 16:42 Intake & Output 01/07/18 01/07/18 01/08/18 06:59 18:59 06:59 Intake Total 1060 Balance 1060 Intake: Oral 1060 Other: Voiding Method Toilet # Voids 2 3 - Exam PHYSICAL EXAM: VITAL SIGNS: As above GENERAL: Sitting up in bed, respiratory effort increased, wearing BiPAP, HEENT: Conjunctivae normal. eyes normal. NECK: No JVD. No thyroid enlargement. No LNs CARDIOVASCULAR: S1, S2 muffled. No murmur RESPIRATION: Breath sounds diminished in the bases. Occasional Scattered rhonchi, fine bilateral expiratory wheeze. ABDOMEN: Soft, nontender . No guarding. no masses palpable.Bowel sounds heard. LEGS: No edema. no swelling PSYCHIATRY: Alert and oriented -3, mood and affect normal. NERVOUS SYSTEM: Cranial N 2-12 grossly normal. Moves all 4 limbs. Diffuse weakness No focal deficits. Skin: no ulcer no rash Joints: No active swelling. No inflammation. - Labs CBC & Chem 7: 01/08/18 07:14 01/08/18 07:14 Labs: Abnormal Lab Results - Last 24 Hours (Table) 01/06/18 01/07/18 01/07/18 Range/Units 20:59 06:54 07:27 WBC 13.2 H (3.8-10.6) k/uL Neutrophils # 12.4 H (1.3-7.7) k/uL Lymphocytes # 0.4 L (1.0-4.8) k/uL Carbon Dioxide (22-30) mmol/L Glucose (74-99) mg/dL POC Glucose (mg/dL) 188 H 130 H (75-99) mg/dL 01/07/18 01/07/18 01/07/18 Range/Units 07:27 11:13 16:56 WBC (3.8-10.6) k/uL Neutrophils # (1.3-7.7) k/uL Lymphocytes # (1.0-4.8) k/uL Carbon Dioxide 36 H (22-30) mmol/L Glucose 131 H (74-99) mg/dL POC Glucose (mg/dL) 193 H 119 H (75-99) mg/dL Microbiology - Last 24 Hours (Table) 01/04/18 13:35 Blood Culture - Preliminary Blood No Growth after 72 hours Assessment and Plan Assessment: -Acute severe exacerbation COPD with acute purulent tracheobronchitis -Bibasilar bronchopneumonia with acute hypoxic respiratory failure, BiPAP dependent -Acute on chronic hypoxic respiratory failure -Ongoing nicotine dependence -Obstructive sleep apnea, wears BiPAP at home Plan: Continue on current medication regime ,monitoring and symptomatic treatment. Maintain on nebulized medical dilators, IV steroids, antibiotics, BIPAP prn. Smoking cessation readdressed. Follow closely with pulmonary. Further recommendations to follow. The impression and plan of care has been dictated as directed. : I performed a history and examination of this patient, discussed the same with the dictator. I agree with the dictator's note ,documented as a scribe. Any additional findings or plans will be noted.
[2018-01-08 16:53] LABS: Glucose,Whole Blood 170 mg/dL (75-99)
--- NOTE | 2018-01-08 18:32 | PN ---
PROGRESS NOTE DATE OF SERVICE: 01/08/2018 This 57-year-old gentleman with a past medical history of multiple medical problems was admitted with COPD, acute exacerbation, extremely short of breath. The patient is on multiple bronchodilators as well as steroids. No chest pain. No palpitations. No fever. On exam, alert and oriented x3. The pulse is 87, blood pressure 150/95, respiratory rate 20, temperature 97.9, pulse ox 100% on BiPAP. HEENT: Conjunctivae normal. Oral mucosa moist. NECK: No jugular venous distention. No carotid bruit. No lymph node enlargement. CARDIOVASCULAR SYSTEM: S1, S2 muffled. RESPIRATORY SYSTEM: Breath sounds diminished at the bases. A few scattered rhonchi and crackles. ABDOMEN: Soft, non-tender. NERVOUS SYSTEM: No focal deficit. LABS: WBC 11.7, hemoglobin 13.5. Sodium 141, potassium 4.8. ASSESSMENT: 1. Acute severe exacerbation of chronic obstructive pulmonary disease with acute purulent tracheobronchitis. 2. Basilar bronchopneumonia with acute hypoxic respiratory failure, BiPAP-dependent. 3. Acute on chronic hypoxic respiratory failure. 4. Ongoing nicotine dependence. 5. Obstructive sleep apnea. Utilizes BiPAP at home. RECOMMENDATIONS AND DISCUSSION: I recommend to continue current medication, continue with steroids, continue with bronchodilators. Closely follow with Dr. Reynoso. Prognosis is guarded because of multiple complex medical issues. Further recommendations to follow. MMODL / IJN: [id number] /
[2018-01-08] MEDS: FLUTICASONE 110 MCG INHALER INHALATION SCH (19:11)
[2018-01-08 20:42] LABS: Glucose,Whole Blood 123 mg/dL (75-99)
[2018-01-09] MEDS: IPRATROPIUM-ALBUTEROL 3 ML NEB INHALATION PRN ×2 (00:16→04:21)
[2018-01-09] MEDS: ALPRAZolam 0.25 MG TAB PO PRN ×2 (02:03→10:21)
[2018-01-09 07:01] LABS: Glucose,Whole Blood 157 mg/dL (75-99)
[2018-01-09 07:18] LABS: Basophils % (A) 0 %; Eosinophils % (A) 0 %; HCT 42.5 % (39.0-53.0); HGB 13.7 gm/dL (13.0-17.5); Lymphocytes # (A) 0.4 k/uL (1.0-4.8); Lymphocytes % (A) 4 %; MCH 31.1 pg (25.0-35.0); MCHC 32.2 g/dL (31.0-37.0); MCV 96.5 fL (80.0-100.0); Mean Platelet Volume 8.1; Monocytes # (A) 0.3 k/uL (0-1.0); Monocytes % (A) 3 %; Neutrophils # (A) 9.9 k/uL (1.3-7.7); Neutrophils % (A) 92 %; Platelet Count 208 k/uL (150-450); RDW 13.1 % (11.5-15.5); WBC 10.8 k/uL (3.8-10.6)
[2018-01-09] MEDS: IPRATROPIUM-ALBUTEROL 3 ML NEB INHALATION SCH ×4 (07:20→19:23)
[2018-01-09] MEDS: BUDESONIDE 1 MG/2 ML NEBU INHALATION SCH ×2 (07:21→19:23)
[2018-01-09] MEDS: FLUTICASONE 110 MCG INHALER INHALATION SCH ×2 (07:21→21:01)
[2018-01-09] MEDS: FORMOTEROL FUMARATE 20 MCG/2 ML NEBU INHALATION SCH ×2 (07:21→19:23)
[2018-01-09 07:30] LABS: Anion Gap 4 mmol/L; Blood Urea Nitrogen 21 mg/dL (9-20); Calcium 9.1 mg/dL (8.4-10.2); Carbon Dioxide 38 mmol/L (22-30); Chloride 96 mmol/L (98-107); Glucose 127 mg/dL (74-99); Potassium 4.7 mmol/L (3.5-5.1); Sodium 138 mmol/L (137-145)
[2018-01-09] MEDS: PROMETHAZ-COD 6.25-10 MG/5 ML 5 ML CUP PO SCH ×3 (08:18→18:04)
[2018-01-09] MEDS: methylPREDNISolone SOD SUCCI 125 MG/2 ML VIAL IV SCH ×3 (08:22→17:58)
[2018-01-09] MEDS: THEOPHYLLINE 24 HOUR 200 MG CAP.ER.24H PO SCH ×2 (08:22→21:15)
[2018-01-09] MEDS: LEVOFLOXACIN 500 MG TAB PO SCH (08:22)
[2018-01-09] MEDS: NICOTINE 14MG/24HR PATCH TRANSDERM SCH ×2 (08:23→08:30)
[2018-01-09] MEDS: HEPARIN SODIUM,PORCINE 5,000 UNIT/ML 1 ML VIAL SQ SCH ×2 (08:23→20:35)
[2018-01-09] MEDS: LORATADINE 10 MG TAB PO SCH (08:23)
[2018-01-09] MEDS: INSULIN ASPART 100 UNIT/ML 1 ML 10 ML VIAL SQ SCH ×4 (08:24→20:35)
[2018-01-09 11:13] LABS: Glucose,Whole Blood 238 mg/dL (75-99)
[2018-01-09] MEDS: MULTIVITAMINS, THERA 1 EACH TAB PO SCH (12:04)
[2018-01-09 14:40] LABS: Glucose,Whole Blood 95 mg/dL (75-99)
[2018-01-09] MEDS: SODIUM CHLORIDE 0.9% 1,000 ML IV SCH (16:49)
--- NOTE | 2018-01-09 17:48 | PN ---
PROGRESS NOTE DATE OF SERVICE: January 09, 2018 This is a 57-year-old male who is again seen on the general medical floor. The patient seems much more short of breath today. He is on this BiPAP almost continuously now. He is tripoding as well. He is very tachypneic and dyspneic. I evaluated him today quickly in the room and I recommended he be transferred up to the ICU for further monitoring. He is quite tachypneic and dyspneic. He has got some audible wheezing. He has got conversational dyspnea. He is on all the appropriate medications. He does not seem to be getting much better. PHYSICAL EXAMINATION: Current vital signs: Temperature 97.4, heart rate 100, respiratory rate of 28 breaths per minutes. Blood pressure 149/86, mean 107 and saturation is mid 90s on BiPAP. He appears quite tachypneic and distant. Has significant conversational dyspnea. He is sitting up in bed, sort of tripoding to help him breathe better. HEENT examination is grossly unremarkable. Difficult to assess as he has a BiPAP mask in place. NECK: Supple. Full range of motion. No adenopathy or thyromegaly. Neck veins are flat. Cardiovascular examination: Reveals tachycardia. Heart rate 100. Regular. S1 , S2 normal. LUNGS: Some inspiratory and expiratory wheezes, rhonchi. There is severe diminishment of breath sounds bilaterally. There is prolongation on forced maneuver. A few scattered rhonchi noted. No crackles are appreciated. ABDOMEN: Soft. Bowel sounds are heard. Extremities are intact. No cyanosis, clubbing, or edema. Skin without rash. Neurologic examination is brief but nonfocal. No new x-rays have been done. Labs are reviewed. White count 10.8, hemoglobin, hematocrit and platelet count all normal. Sodium, potassium normal. Chloride 96, CO2 38, anion gap 4, BUN 21, creatinine 0.99. He is on all appropriate medications including short-acting and long-acting beta agonist, short-acting muscarinic antagonist systemic corticosteroids, inhaled corticosteroids, in fact high-dose inhaled corticosteroids as well as Levaquin and theophylline preparation. He is also on cough syrup as needed. ASSESSMENT: 1. Acute hypoxemic respiratory failure secondary to severe chronic obstructive pulmonary disease exacerbation. 2. Acute on chronic hypoxemic respiratory failure. 3. History of ongoing tobacco use and nicotine addiction. 4. History of osteoporosis. 5. Secondary pulmonary hypertension. 6. History of sleep apnea syndrome, currently on CPAP. 7. History of kidney stones. 8. Status post hernia repair. 9. History of anxiety. PLAN: The patient will continue on its current medications. We will continue on the BiPAP. We will transfer him up to the ICU so we can monitor him more closely. Additional recommendations and suggestions are forthcoming. Prognosis is very poor. He may end up on the ventilator. I explained that to him and his today. I also explained it to a sister. I again counseled him about the importance of smoking cessation. MMMAMADOUL / IJN: [id number] / SNOW
[2018-01-09 18:06] LABS: Glucose,Whole Blood 138 mg/dL (75-99)
[2018-01-09 20:41] LABS: Glucose,Whole Blood 147 mg/dL (75-99)
--- NOTE | 2018-01-10 | PN ---
PROGRESS NOTE DATE OF SERVICE: 01/09/2018. HISTORY: This 57-year-old gentleman admitted with COPD exacerbation is fairing rather poorly at this time. Dr. Reynoso has seen the patient and recommended transfer to ICU. The patient is on a BiPAP, slightly tiring out at this time. The patient is significantly short of breath. PAST MEDICAL HISTORY: Reviewed. REVIEW OF SYSTEMS: Could not be taken, the patient is on BiPAP. MEDICATION: 1. [place] 5 mg at bedtime. 2. DuoNeb q.i.d. and p.r.n. 3. Xanax 0.5 t.i.d. p.r.n. 4. Pulmicort 1 mg b.i.d. 5. Perforomist 20 mg b.i.d. 6. Heparin 5000 units subcu b.i.d. 7. Levaquin 500 mg. 8. Claritin. 9. Solu-Medrol 60 IV every 6 hours. 10.Multivitamins. 11.Habitrol 14 daily. 12.Restoril 50 mg at bedtime p.r.n. 13.DuoNeb 200 mg p.o. b.i.d. PHYSICAL EXAM: Patient is alert, oriented x3. Pulse 79, blood pressure 130/90, respiration 20, temperature normal, pulse ox 98% on BiPAP, 50% FiO2. HEENT: Conjunctivae normal. Oral mucosa moist. NECK: No JVD. No carotid bruits. No lymph node enlargement. CARDIOVASCULAR SYSTEM: S1, S2 muffled. Breath sounds diminished at the bases. Bilateral scattered rhonchi and crackles. Expiratory wheezing also present. ABDOMEN: Soft, nontender. Legs no edema. NERVOUS SYSTEM: Higher functions as mentioned. Moves all limbs equally. LYMPHATICS: No lymph nodes palpable in the neck, axillae or groin. SKIN: No ulcers or rashes. LABS: WBC 10.8, glucose is 127, 157, 238, 95. ASSESSMENT: 1. Chronic obstructive pulmonary disease acute exacerbation with acute purulent tracheobronchitis with acute hypoxic respiratory failure. 2. Bibasilar bronchopneumonia, possibly BiPAP dependent. 3. Acute on chronic hypoxic respiratory failure. 4. Ongoing nicotine dependence. 5. Sleep apnea. BiPAP at home. 6. Increased random blood sugar. RECOMMENDATIONS: Continue current medications, monitoring and symptomatic treatment. We will continue bronchodilators, continue empiric antibiotics and DVT prophylaxis. The prognosis is guarded because of multiple complex medical issues. Further recommendations to follow. Closely follow with Dr. Reynoso. MATTEO / MARLONN: [id number] /
[2018-01-10] MEDS: methylPREDNISolone SOD SUCCI 125 MG/2 ML VIAL IV SCH ×4 (00:10→17:35)
[2018-01-10] MEDS: PROMETHAZ-COD 6.25-10 MG/5 ML 5 ML CUP PO SCH ×4 (00:10→17:35)
[2018-01-10] MEDS: IPRATROPIUM-ALBUTEROL 3 ML NEB INHALATION PRN (04:16)
[2018-01-10 05:17] LABS: Basophils % (A) 0 %; Eosinophils % (A) 0 %; HCT 40.9 % (39.0-53.0); HGB 13.3 gm/dL (13.0-17.5); Lymphocytes # (A) 0.4 k/uL (1.0-4.8); Lymphocytes % (A) 4 %; MCH 31.4 pg (25.0-35.0); MCHC 32.5 g/dL (31.0-37.0); MCV 96.7 fL (80.0-100.0); Mean Platelet Volume 7.5; Monocytes # (A) 0.3 k/uL (0-1.0); Monocytes % (A) 3 %; Neutrophils % (A) 92 %; Platelet Count 197 k/uL (150-450); RBC 4.23 m/uL (4.30-5.90); RDW 13.1 % (11.5-15.5); WBC 9.8 k/uL (3.8-10.6)
[2018-01-10 05:27] LABS: Anion Gap 3 mmol/L; Blood Urea Nitrogen 21 mg/dL (9-20); Calcium 8.7 mg/dL (8.4-10.2); Carbon Dioxide 38 mmol/L (22-30); Chloride 98 mmol/L (98-107); Glucose 130 mg/dL (74-99); Magnesium 2.7 mg/dL (1.6-2.3); Phosphorus 3.6 mg/dL (2.5-4.5); Potassium 5.1 mmol/L (3.5-5.1); Sodium 139 mmol/L (137-145)
[2018-01-10] MEDS: IPRATROPIUM-ALBUTEROL 3 ML NEB INHALATION SCH ×4 (07:05→19:14)
[2018-01-10] MEDS: FORMOTEROL FUMARATE 20 MCG/2 ML NEBU INHALATION SCH ×2 (07:05→19:14)
[2018-01-10] MEDS: BUDESONIDE 1 MG/2 ML NEBU INHALATION SCH ×2 (07:05→19:14)
[2018-01-10] MEDS: INSULIN ASPART 100 UNIT/ML 1 ML 10 ML VIAL SQ SCH ×4 (07:07→20:28)
[2018-01-10 07:16] LABS: Glucose,Whole Blood 161 mg/dL (75-99)
[2018-01-10] MEDS: FLUTICASONE 110 MCG INHALER INHALATION SCH ×2 (07:36→19:14)
[2018-01-10] MEDS: NICOTINE 14MG/24HR PATCH TRANSDERM SCH (08:50)
[2018-01-10] MEDS: THEOPHYLLINE 24 HOUR 200 MG CAP.ER.24H PO SCH ×2 (08:51→20:29)
[2018-01-10] MEDS: LORATADINE 10 MG TAB PO SCH (08:51)
[2018-01-10] MEDS: LEVOFLOXACIN 500 MG TAB PO SCH (08:51)
[2018-01-10] MEDS: HEPARIN SODIUM,PORCINE 5,000 UNIT/ML 1 ML VIAL SQ SCH ×2 (08:52→20:28)
--- NOTE | 2018-01-10 09:25 | XR ---
EXAMINATION TYPE: XR chest 1V portable DATE OF EXAM: 01/10/2018 HISTORY: Shortness of breath. COMPARISON: 01/04/2018 TECHNIQUE: Single view of the chest is submitted. FINDINGS: Demonstrated are scattered senescent parenchymal change. There is no evidence for focal infiltrate. The heart is stable. Hilar and mediastinal structures are within normal limits. Degenerative changes are seen of the dorsal spine. IMPRESSION: 1. Chronic changes without evidence for acute pulmonary disease.
--- NOTE | 2018-01-10 09:57 | PN ---
PROGRESS NOTE DATE OF SERVICE: January 10, 2018. This is a 57-year-old male with a history of severe COPD. Yesterday, he was on the floor and I moved him to the ICU to observe him more carefully. He is maintained on BiPAP at 12 and 8, 50%. Yesterday he was quite tachypneic. He was not really moving air well. He was tripoding. For that reason, I thought he would be better served in the intensive care unit. Today, he seems a bit better. A bit less short of breath. He can actually speak in near-complete sentences. Yesterday he could not do that. He is currently on a 0.9 IV at 50 mL an hour. He is still very tight in his chest. He is coughing a bit. Not producing phlegm. A recent chest x-ray done this morning shows only chronic changes without any acute abnormalities. I believe he is improved today. He was able to get up out of the chair and actually walked to the bathroom. PHYSICAL EXAMINATION: Currently vital signs include temperature 96.5, heart rate 99, respiratory rate 18, blood pressure 150/95 with a mean of 113, and saturation of about 95% on the BiPAP. Appears quite tachypneic and dyspneic still. Able to speak in full sentences or near- complete sentences. No audible wheezing. HEENT examination is grossly unremarkable. BiPAP mask in place. NECK: Supple. Full range of motion. No adenopathy or thyromegaly. Neck veins are flat. Cardiovascular examination reveals distant heart sounds. Heart rate about 100 beats per minute. S1, S2 normal. There is no murmur. LUNGS: Severely diminished breath sounds. There is some high-pitched expiratory wheezes. A few scattered rhonchi. Slight prolongation. Breath sounds equal bilaterally but diminished throughout. Abdomen is soft. Bowel sounds are heard. Extremities are intact. No significant cyanosis, clubbing, or edema. Skin without rash. Neurologic examination is nonfocal. White count 9.8, hemoglobin 13.3, hematocrit 40.9, platelet count 197,006, sodium 139, potassium 5.1, chloride 98, CO2 of 38, anion gap is 3, BUN and creatinine were 21 and 0.89. The bicarbonate concentration of 38 suggested that his baseline PaCO2 is 65 +/- 2 mmHg. His magnesium is 2.7. Microbiologic studies include urine and blood cultures are negative thus far. MEDICATIONS ARE: Reviewed. He is on all the appropriate medications. We even have him on high-dose inhaled corticosteroids. He continues on Solu-Medrol and antibiotics empirically. ASSESSMENT: 1. Acute hypoxemic respiratory failure secondary to severe chronic obstructive pulmonary disease and chronic obstructive pulmonary disease exacerbation. 2. Possible purulent tracheobronchitis. 3. Acute on chronic hypoxemic respiratory failure. 4. Chronic hypercapnic respiratory failure with a baseline pCO2 right around 65 +/- 2 mmHg. 5. History of ongoing tobacco use and nicotine addiction. 6. History of osteoporosis. 7. Secondary pulmonary hypertension. 8. History of sleep apnea, currently maintained on CPAP. 9. History of nephrolithiasis. 10.Status post hernia repair. 11.Chronic anxiety. PLAN: Dated January 10, 2018. The patient will be maintained in the ICU. We will keep him on the BiPAP for now. I did expect the nurses to maintain saturations between 88 and 92%. The patient will continue on all the current medications. He seems to be doing a bit better today than yesterday. His chest x-ray today showed nothing acute. He remains on antibiotics empirically. He is on systemic corticosteroids and high dose inhaled corticosteroids. He is also on a theophylline preparation. Additional recommendations and suggestions are forthcoming. Prognosis is guarded. He is again counseled about the importance of smoking cessation. Critical care time is 33 minutes. MATTEO / IRIS: [id number] /
[2018-01-10] MEDS: MULTIVITAMINS, THERA 1 EACH TAB PO SCH (12:06)
[2018-01-10 12:20] LABS: Glucose,Whole Blood 162 mg/dL (75-99)
[2018-01-10] MEDS: ALPRAZolam 0.25 MG TAB PO PRN (14:05)
[2018-01-10] MEDS: SODIUM CHLORIDE 0.9% 1,000 ML IV SCH (14:31)
[2018-01-10] MEDS ORDERED: NON-FORMULARY DRUG (Alendronate Sodium [Fosamax] 70 MG) PO SCH (16:01)
[2018-01-10 17:19] LABS: Glucose,Whole Blood 166 mg/dL (75-99)
[2018-01-10] MEDS: BENZONATATE 100 MG CAP PO PRN (17:36)
--- NOTE | 2018-01-10 18:21 | PN ---
PROGRESS NOTE DATE OF SERVICE: 01/10/2018 DATE OF SERVICE: This 57-year-old gentleman who was admitted with COPD acute exacerbation had significant breathing difficulties yesterday. The patient had features of acute on chronic hypoxic hypercapnic respiratory failure. The patient was transferred to ICU yesterday being closely monitored. The most recent chest x-ray done today. The patient able to tolerate BiPAP at this time. Most recent chest x-ray showed chronic changes without evidence of acute process at this time. White count is normal. Blood sugar is elevated. Magnesium is 2.7. PAST MEDICAL HISTORY: Reviewed. REVIEW OF SYSTEMS: CARDIOVASCULAR: No angina. No palpitations. Respiratory: As mentioned earlier. GI as mentioned earlier. : No dysuria. Central nervous system: No numbness or weakness. CURRENT MEDICATIONS ARE: Reviewed and include: 1. [place] 5 mg q.6h. 2. DuoNeb q.i.d. and p.r.n. 3. Xanax 0.5 t.i.d. 4. Tessalon Perles. 5. Pulmicort 1 mg b.i.d. 6. Flovent b.i.d. 7. Perforomist 20 mg b.i.d. 8. Heparin 5000 subcu b.i.d. 9. NovoLog scale. 10.Levaquin 500 mg. 11.Claritin 10 mg. 12.Solu-Medrol 60 IV q.6 hours. 13.Multivitamins one p.o. daily. 14.Habitrol 14 daily. 15.Restoril 50 mg. 16.Magdy-24 200 mg p.o. b.i.d. PHYSICAL EXAM: Patient is alert, oriented x2. Pulse is 121, blood pressure 150/93, respiration 19, temperature normal, pulse ox 97% on BiPAP 50% FiO2. HEENT: Conjunctivae normal. Oral mucosa moist. Neck is no jugular venous distention. No carotid bruit. No lymph node enlargement. Cardiovascular systems: S1, S2. Respirations: Breath sounds diminished in the bases. Bilateral scattered rhonchi and crackles. Breathing efforts markedly increased. Patient is wearing BiPAP almost all the time. ABDOMEN: Soft, nontender. No mass palpable. Legs: No edema. No swelling. NERVOUS SYSTEM: Higher functions as mentioned earlier. Moves all four extremities. No focal deficits. LABS: WBC 9.8, hemoglobin 13.8, Accu-Cheks 161, 162. ASSESSMENT: 1. Chronic obstructive pulmonary disease acute exacerbation with acute purulent tracheobronchitis, acute hypoxia on BiPAP. 2. Possible bibasilar bronchopneumonia possibly BiPAP dependent. 3. Acute on chronic hypoxic respiratory failure. 4. Ongoing nicotine dependence. 5. Sleep apnea. 6. Increased random blood sugar. RECOMMENDATIONS AND DISCUSSION: I recommend to continue current medications, continue symptomatic treatment. Continue the bronchodilators. Continue steroids. Continue with the BiPAP. Monitor closely. DVT prophylaxis. Prognosis guarded because of multiple complex medical issues. Further recommendations to follow. MMODL / IJN: [id number] / MTDFrancisco
[2018-01-10 20:25] LABS: Glucose,Whole Blood 158 mg/dL (75-99)
[2018-01-11] MEDS: PROMETHAZ-COD 6.25-10 MG/5 ML 5 ML CUP PO SCH ×4 (00:07→17:51)
[2018-01-11] MEDS: methylPREDNISolone SOD SUCCI 125 MG/2 ML VIAL IV SCH ×4 (00:07→17:51)
[2018-01-11 04:25] LABS: Basophils % (A) 0 %; Eosinophils # (A) 0.1 k/uL (0-0.7); Eosinophils % (A) 1 %; HGB 13.5 gm/dL (13.0-17.5); Lymphocytes # (A) 0.4 k/uL (1.0-4.8); Lymphocytes % (A) 4 %; MCH 31.3 pg (25.0-35.0); MCHC 32.9 g/dL (31.0-37.0); MCV 94.9 fL (80.0-100.0); Monocytes # (A) 0.2 k/uL (0-1.0); Monocytes % (A) 2 %; Neutrophils % (A) 92 %; Platelet Count 203 k/uL (150-450); RBC 4.32 m/uL (4.30-5.90); WBC 9.8 k/uL (3.8-10.6)
[2018-01-11 04:38] LABS: Anion Gap 7 mmol/L; Blood Urea Nitrogen 24 mg/dL (9-20); Calcium 8.7 mg/dL (8.4-10.2); Carbon Dioxide 32 mmol/L (22-30); Chloride 98 mmol/L (98-107); Glucose 141 mg/dL (74-99); Magnesium 2.7 mg/dL (1.6-2.3); Phosphorus 3.3 mg/dL (2.5-4.5); Potassium 4.8 mmol/L (3.5-5.1); Sodium 137 mmol/L (137-145)
[2018-01-11 07:12] LABS: Glucose,Whole Blood 120 mg/dL (75-99)
[2018-01-11] MEDS: IPRATROPIUM-ALBUTEROL 3 ML NEB INHALATION SCH ×4 (07:24→19:33)
[2018-01-11] MEDS: FORMOTEROL FUMARATE 20 MCG/2 ML NEBU INHALATION SCH ×2 (07:25→19:34)
[2018-01-11] MEDS: BUDESONIDE 1 MG/2 ML NEBU INHALATION SCH ×2 (07:25→19:34)
[2018-01-11] MEDS: FLUTICASONE 110 MCG INHALER INHALATION SCH (07:26)
[2018-01-11] MEDS: INSULIN ASPART 100 UNIT/ML 1 ML 10 ML VIAL SQ SCH ×4 (07:26→20:17)
--- NOTE | 2018-01-11 07:58 | XR ---
EXAMINATION TYPE: XR chest 1V portable DATE OF EXAM: 01/11/2018 COMPARISON: Prior chest x-ray 01/10/2018 HISTORY: Respiratory distress TECHNIQUE: Single frontal view of the chest is obtained. FINDINGS: There are overlying cardiac leads. No evident airspace disease, pneumothorax, or pleural e ffusion. Cardiomediastinal silhouette, pulmonary vascularity and jean carlos are stable. IMPRESSION: No acute process.
[2018-01-11] MEDS: LORATADINE 10 MG TAB PO SCH (08:21)
[2018-01-11] MEDS: THEOPHYLLINE 24 HOUR 200 MG CAP.ER.24H PO SCH ×2 (08:21→20:15)
[2018-01-11] MEDS: LEVOFLOXACIN 500 MG TAB PO SCH (08:21)
[2018-01-11] MEDS: ALPRAZolam 0.25 MG TAB PO PRN ×3 (08:21→21:55)
[2018-01-11] MEDS: BENZONATATE 100 MG CAP PO PRN (08:22)
[2018-01-11] MEDS: HEPARIN SODIUM,PORCINE 5,000 UNIT/ML 1 ML VIAL SQ SCH ×2 (08:22→20:15)
[2018-01-11] MEDS: NICOTINE 14MG/24HR PATCH TRANSDERM SCH (08:23)
[2018-01-11 09:59] VITALS: BMI 25.0
--- NOTE | 2018-01-11 11:48 | P.PN ---
Subjective Progress Note Date: 01/11/18 Principal diagnosis: Acute on chronic hypoxic respiratory failure secondary to acute exacerbation of chronic obstructive pulmonary disease Pulmonary and critical care consultation dated 01/05/2018 This is a 57-year-old male with a history of severe COPD. He states that over the last week, he had worsening shortness of breath and cough. He is coughing up some phlegm not a lot. He's been using his updrafts unit home without much benefit. He is also been using his oxygen. Denies any fever or chills. Not coughing up any blood. There is no chest pain or chest discomfort. No palpitations. No nausea vomiting or diarrhea. The patient continues to smoke cigarettes. His past medical history includes COPD, osteoporosis, sleep apnea syndrome, kidney stones and a previous hernia repair. Unfortunately as mentioned above, the patient continues to smoke cigarettes more than a pack a day. The patient states that the updrafts seem to be making his breathing worse. He has been using his updraft machine at home though. He has NO KNOWN DRUG ALLERGIES. Progress note dated 01/06/2018 The patient is seen again today in follow-up on the regular medical floor. He is awake and alert. He is in mild pulmonary distress. He had been utilizing the BiPAP through most of the evening and this morning. Currently off the BiPAP and on 4 L/m per nasal cannula. He is quite short of breath with minimal exertion. This making conversation as well. He's been afebrile. Tachypneic. Tachycardic. White count 12.1. Hemoglobin 14.0. Creatinine 0.89. He is on DuoNeb inhalations 4 times a day and when necessary, Pulmicort and Perforomist inhalations twice a day, Tessalon perles, IV Solu-Medrol, theophylline Xanax, antibiotics in the form of Levaquin and azithromycin. Blood cultures reveal no growth. Progress note dated 01/07/2018 The patient is seen again today in follow-up on the regular medical floor. He is awake and alert in no significant distress. He is currently resting in bed on the BiPAP. Settings of 12/8 at 50% FiO2. He states he is breathing easier today as compared to yesterday. He is a little more comfortable and relaxed. He remains slightly tachypneic and tachycardic. He is afebrile. Blood and urine cultures reveal no growth. White count 13.2. Hemoglobin 13.6. Creatinine 0.83. On 01/11/2018 patient seen in follow-up in the intensive care unit. Currently off BiPAP support, fairly comfortable at rest, his breathing easier, not in any distress, vital signs are stable, slightly tachycardic at times, sinus mechanism , currently on 5 L per nasal cannula his pulse ox is 96%, hemodynamically stable. Did wear the BiPAP at pressures of 12 and 6 last night briefly, overall his breathing has much improved, lung sounds are diminished to auscultation, no wheezes or rhonchi noted. Patient has been tolerating ambulation in the room. Labs were reviewed, showed WBC of 9.8, hemoglobin 13.5 , sodium of 137, potassium is 4.8, chloride is 98, CO2 32, BUN is 24 creatinine 0.68. Patient remains on nebulized bronchodilators, IV steroids, theophylline, Pulmicort and Perforomist. Clinically improving. Objective - Vital Signs Vital signs: Vital Signs Temp 97.8 F 01/11/18 08:00 Pulse 90 01/11/18 11:07 Resp 23 01/11/18 10:00 BP 150/111 01/11/18 10:00 Pulse Ox 96 01/11/18 10:00 Intake & Output 01/10/18 01/11/18 01/11/18 18:59 06:59 18:59 Intake Total 770 1128 200 Output Total 2 0 Balance 770 1126 200 Weight 72.3 kg 72.3 kg Intake: IV 20 0.9 20 Intake, IV Titration 50 Amount Sodium Chloride 0.9% 1, 50 000 ml @ 50 mls/hr IV . Q20H [facility] Rx#:[id number] Oral 700 1128 200 Output: Urine 2 0 Other: Voiding Method Toilet # Voids 2 1 - Exam GENERAL EXAM: Alert, pleasant, 57-year-old white male 5 L per high flow nasal cannula comfortable in no apparent distress. HEAD: Normocephalic/atraumatic. EYES: Normal reaction of pupils, equal size. Conjunctiva pink, sclera white. NOSE: Clear with pink turbinates. THROAT: No erythema or exudates. NECK: No masses, no JVD, no thyroid enlargement, no adenopathy. CHEST: No chest wall deformity. Symmetrical expansion. LUNGS: Diminished breath sounds bilaterally, no rhonchi or wheezes noted CVS: Regular rate and rhythm, normal S1 and S2, no gallops, no murmurs, no rubs ABDOMEN: Soft, nontender. No hepatosplenomegaly, normal bowel sounds, no guarding or rigidity. EXTREMITIES: No clubbing, no edema, no cyanosis, 2+ pulses and upper and lower extremities. MUSCULOSKELETAL: Muscle strength and tone normal. SPINE: No scoliosis or deformity SKIN: No rashes CENTRAL NERVOUS SYSTEM: Alert and oriented -3. No focal deficits, tone is normal in all 4 extremities. PSYCHIATRIC: Alert and oriented -3. Appropriate affect. Intact judgment and insight. - Labs CBC & Chem 7: 01/11/18 03:50 01/11/18 03:50 Labs: Abnormal Lab Results - Last 24 Hours (Table) 01/10/18 01/10/18 01/10/18 Range/Units 12:09 17:04 20:24 Neutrophils # (1.3-7.7) k/uL Lymphocytes # (1.0-4.8) k/uL Carbon Dioxide (22-30) mmol/L BUN (9-20) mg/dL Glucose (74-99) mg/dL POC Glucose (mg/dL) 162 H 166 H 158 H (75-99) mg/dL Magnesium (1.6-2.3) mg/dL 01/11/18 01/11/18 01/11/18 Range/Units 03:50 03:50 07:10 Neutrophils # 9.0 H (1.3-7.7) k/uL Lymphocytes # 0.4 L (1.0-4.8) k/uL Carbon Dioxide 32 H (22-30) mmol/L BUN 24 H (9-20) mg/dL Glucose 141 H (74-99) mg/dL POC Glucose (mg/dL) 120 H (75-99) mg/dL Magnesium 2.7 H (1.6-2.3) mg/dL Microbiology - Last 24 Hours (Table) 01/04/18 13:35 Blood Culture - Final Blood No Growth after 144 hours Assessment and Plan Plan: COPD exacerbation complicated by tracheobronchitis Acute on chronic hypoxemic respiratory failure History of ongoing tobacco use with nicotine addiction her graft osteoporosis Probable secondary pulmonary hypertension History of sleep apnea syndrome, currently not utilizing his CPAP at home, he states he wants to switch to a nasal pillow mask, he can do his updrafts at night History of kidney stones Status post hernia repair History of anxiety Plan: Continue current medical treatment, continue BiPAP support as needed, weaning FiO2, overall patient is breathing easier, much less labored appear to Thursday , when the patient transferred over to the intensive care unit. Continue with Pulmicort and Perforomist, we will stop the Q-Hallie. Continue same dose IV steroids, nicotine patch. Patient is stable to transfer out of the intensive care unit today to general medical floor. I performed a history & physical examination of the patient and discussed their management with my nurse practitioner, Gay Fiore. I reviewed the nurse practitioner's note and agree with the documented findings and plan of care. Lung sounds are diminished breath sounds bilaterally. The findings and the impression was discussed with the patient. I attest to the documentation by the nurse practitioner. Time with Patient: Greater than 30
[2018-01-11] MEDS: MULTIVITAMINS, THERA 1 EACH TAB PO SCH (12:11)
[2018-01-11 12:16] LABS: Glucose,Whole Blood 270 mg/dL (75-99)
--- NOTE | 2018-01-11 16:46 | PN ---
PROGRESS NOTE DATE OF SERVICE: 01/11/2018 This 57-year-old gentleman with a past medical history of multiple medical problems was admitted with COPD acute exacerbation, acute tracheobronchitis, is being closely monitored in ICU at this time. The patient is on BiPAP at night. The magnesium is 2.7. White count is noted. The patient is on intensive bronchodilator treatment as well as IV steroids. Dr. Reynoso and Dr. Valencia is following the patient closely. Patient is on broad-spectrum IV antibiotics also. The cultures are negative so far. Blood sugar is elevated. PAST MEDICAL HISTORY: Reviewed. REVIEW OF SYSTEM: Cardiovascular: No angina or palpitations. Respiration: As mentioned earlier. GI as mentioned earlier. : No dysuria. As Central nervous system: No numbness or weakness. CURRENT MEDICATIONS: Reviewed and include: 1. [place] 5 mg q.6h p.r.n. 2. DuoNeb q.i.d. and p.r.n. 3. Xanax 0.5 t.i.d. 4. Tessalon Perles. 5. Pulmicort 1 mg b.i.d. 6. Perforomist 20 b.i.d. 7. Heparin 5000 subcu b.i.d. 8. NovoLog scale. 9. Levaquin 500 mg. 10.Claritin 10 mg. 11.Solu-Medrol 60 IV q.6h. 12.Multivitamins. 13.Habitrol 14. 14.Restoril 50 mg q.h.s. 15.Magdy-24 200 mg p.o. b.i.d. PHYSICAL EXAM: Patient is alert, oriented x3, pulse 112, blood pressure 141/90, respiration 21, temperature normal, pulse ox 97% on 5 L. HEENT: Conjunctivae normal. Oral mucosa moist. Neck is no jugular venous distention. No carotid bruit. No lymph node enlargement. Cardiovascular systems: S1, S2 muffled. Respiratory: Breath sounds diminished in the bases. Bilateral scattered rhonchi and crackles. Expiratory wheezing also present. ABDOMEN: Soft, nontender. No mass palpable. LEGS: No edema. No swelling. NERVOUS SYSTEM: Higher functions as mentioned. Moves all 4 limbs. No focal motor and sensory deficits. Lymphatics: No lymph nodes palpable in the neck, axillae or groin. Skin no ulcer, rashes or bleeding. LABS: CBC within normal limits. Sodium 136, potassium 4.8. ASSESSMENT: 1. Chronic obstructive pulmonary disease acute exacerbation with acute purulent tracheobronchitis with acute hypoxic respiratory failure on BiPAP. 2. Possible bibasilar bronchopneumonia possibly gram-negative. 3. Possibly BiPAP dependent. 4. Acute on chronic hypoxic respiratory failure. 5. Ongoing nicotine dependence. 6. Sleep apnea. 7. Increased random blood sugar. 8. Possible steroid induced diabetes mellitus. RECOMMENDATIONS AND DISCUSSION: Recommend to continue current medications. Continue bronchodilators. Continue steroids. Continue the rest of medications and monitor blood sugars closely. Continue to monitor. MMODL / IJN: [id number] /
[2018-01-11 17:26] LABS: Glucose,Whole Blood 188 mg/dL (75-99)
[2018-01-11 20:08] LABS: Glucose,Whole Blood 211 mg/dL (75-99)
[2018-01-12] MEDS: methylPREDNISolone SOD SUCCI 125 MG/2 ML VIAL IV SCH ×5 (00:35→23:52)
[2018-01-12] MEDS: PROMETHAZ-COD 6.25-10 MG/5 ML 5 ML CUP PO SCH ×5 (00:35→23:52)
[2018-01-12 04:56] LABS: Basophils % (A) 0 %; Eosinophils % (A) 0 %; HCT 40.9 % (39.0-53.0); HGB 13.6 gm/dL (13.0-17.5); Lymphocytes # (A) 0.3 k/uL (1.0-4.8); Lymphocytes % (A) 3 %; MCHC 33.3 g/dL (31.0-37.0); MCV 96.1 fL (80.0-100.0); Mean Platelet Volume 7.1; Monocytes # (A) 0.3 k/uL (0-1.0); Monocytes % (A) 3 %; Neutrophils # (A) 10.1 k/uL (1.3-7.7); Neutrophils % (A) 94 %; Platelet Count 207 k/uL (150-450); RBC 4.26 m/uL (4.30-5.90); RDW 13.1 % (11.5-15.5); WBC 10.7 k/uL (3.8-10.6)
[2018-01-12 05:12] LABS: Anion Gap 4 mmol/L; Blood Urea Nitrogen 21 mg/dL (9-20); Calcium 8.8 mg/dL (8.4-10.2); Carbon Dioxide 36 mmol/L (22-30); Chloride 98 mmol/L (98-107); Glucose 118 mg/dL (74-99); Magnesium 2.6 mg/dL (1.6-2.3); Potassium 5.2 mmol/L (3.5-5.1); Sodium 138 mmol/L (137-145)
[2018-01-12 06:53] LABS: Glucose,Whole Blood 129 mg/dL (75-99)
[2018-01-12] MEDS: INSULIN ASPART 100 UNIT/ML 1 ML 10 ML VIAL SQ SCH ×4 (06:53→22:10)
[2018-01-12] MEDS: IPRATROPIUM-ALBUTEROL 3 ML NEB INHALATION SCH ×4 (07:24→19:15)
[2018-01-12] MEDS: BUDESONIDE 1 MG/2 ML NEBU INHALATION SCH ×2 (07:24→19:15)
[2018-01-12] MEDS: FORMOTEROL FUMARATE 20 MCG/2 ML NEBU INHALATION SCH ×2 (07:24→19:15)
[2018-01-12] MEDS: LORATADINE 10 MG TAB PO SCH (08:27)
[2018-01-12] MEDS: NICOTINE 14MG/24HR PATCH TRANSDERM SCH (08:27)
[2018-01-12] MEDS: LEVOFLOXACIN 500 MG TAB PO SCH (08:27)
[2018-01-12] MEDS: HEPARIN SODIUM,PORCINE 5,000 UNIT/ML 1 ML VIAL SQ SCH ×2 (08:27→20:53)
[2018-01-12] MEDS: THEOPHYLLINE 24 HOUR 200 MG CAP.ER.24H PO SCH ×2 (08:27→20:53)
--- NOTE | 2018-01-12 08:34 | XR ---
EXAMINATION TYPE: XR chest 1V portable DATE OF EXAM: 01/12/2018 COMPARISON: 01/11/2018 HISTORY: Difficulty breathing TECHNIQUE: Single frontal view of the chest is obtained. FINDINGS: There is no focal air space opacity, pleural effusion, or pneumothorax seen. The cardiac silhouette size is within normal limits. The osseous structures are intact. Hyperinflation IMPRESSION: Correlate for COPD
--- NOTE | 2018-01-12 11:24 | P.PN ---
Subjective Progress Note Date: 01/12/18 On 01/12/2089 seeing this patient for a follow-up. The patient is currently off the BiPAP. Feeling much better. Oxygen has been weaned down to 3 L per minute nasal cannula. Last bronchus breath and wheezing on today's evaluation. No significant cough or sputum production. No chest congestion. His using the BiPAP overnight at a pressure of 12/6 cm of water. He was also able to bring in his own CPAP unit which is set at a pressure maximum centimeters of water. He remains on IV Solu-Medrol. He is on DuoNeb nebulized treatments around the clock, Pulmicort Respules and Perforomist nebulized she was twice a day and theophylline orally. No altered mentation. No hemoptysis. No pleurisy. No other significant events overnight. Objective - Vital Signs Vital signs: Vital Signs Temp 98.0 F 01/12/18 08:00 Pulse 112 H 01/12/18 08:00 Resp 26 H 01/12/18 08:00 BP 143/96 01/12/18 08:00 Pulse Ox 92 L 01/12/18 08:00 Intake & Output 01/11/18 01/12/18 01/12/18 18:59 06:59 18:59 Intake Total 400 0 360 Output Total 0 0 Balance 400 0 360 Weight 72.3 kg 72.3 kg Intake: IV 0 0.9 0 Oral 400 360 Output: Urine 0 0 Other: Voiding Method Toilet Toilet # Voids 1 1 1 - Exam GENERAL EXAM: Alert, pleasant, 57-year-old white male 5 L per high flow nasal cannula comfortable in no apparent distress. HEAD: Normocephalic/atraumatic. EYES: Normal reaction of pupils, equal size. Conjunctiva pink, sclera white. NOSE: Clear with pink turbinates. THROAT: No erythema or exudates. NECK: No masses, no JVD, no thyroid enlargement, no adenopathy. CHEST: No chest wall deformity. Symmetrical expansion. LUNGS: Diminished breath sounds bilaterally, no rhonchi or wheezes noted CVS: Regular rate and rhythm, normal S1 and S2, no gallops, no murmurs, no rubs ABDOMEN: Soft, nontender. No hepatosplenomegaly, normal bowel sounds, no guarding or rigidity. EXTREMITIES: No clubbing, no edema, no cyanosis, 2+ pulses and upper and lower extremities. MUSCULOSKELETAL: Muscle strength and tone normal. SPINE: No scoliosis or deformity SKIN: No rashes CENTRAL NERVOUS SYSTEM: Alert and oriented -3. No focal deficits, tone is normal in all 4 extremities. PSYCHIATRIC: Alert and oriented -3. Appropriate affect. Intact judgment and insight. - Labs CBC & Chem 7: 01/12/18 04:10 01/12/18 04:10 Labs: Abnormal Lab Results - Last 24 Hours (Table) 01/11/18 01/11/18 01/11/18 Range/Units 12:14 17:24 20:07 WBC (3.8-10.6) k/uL RBC (4.30-5.90) m/uL Neutrophils # (1.3-7.7) k/uL Lymphocytes # (1.0-4.8) k/uL Potassium (3.5-5.1) mmol/L Carbon Dioxide (22-30) mmol/L BUN (9-20) mg/dL Glucose (74-99) mg/dL POC Glucose (mg/dL) 270 H 188 H 211 H (75-99) mg/dL Magnesium (1.6-2.3) mg/dL 01/12/18 01/12/18 01/12/18 Range/Units 04:10 04:10 06:52 WBC 10.7 H (3.8-10.6) k/uL RBC 4.26 L (4.30-5.90) m/uL Neutrophils # 10.1 H (1.3-7.7) k/uL Lymphocytes # 0.3 L (1.0-4.8) k/uL Potassium 5.2 H (3.5-5.1) mmol/L Carbon Dioxide 36 H (22-30) mmol/L BUN 21 H (9-20) mg/dL Glucose 118 H (74-99) mg/dL POC Glucose (mg/dL) 129 H (75-99) mg/dL Magnesium 2.6 H (1.6-2.3) mg/dL Assessment and Plan Plan: 1 COPD exacerbation complicated by tracheobronchitis, improving and the patient is less short of breath compared to yesterday while off the BiPAP. 2 Acute on chronic hypoxemic respiratory failure, improving currently on 3 L of oxygen by nasal cannula 4 History of ongoing tobacco use with nicotine addiction 5 Probable secondary pulmonary hypertension 6 History of sleep apnea syndrome, currently not utilizing his CPAP at home, he states he wants to switch to a nasal pillow mask, he can do his updrafts at night 7 History of kidney stones 8 Status post hernia repair 9 History of anxiety Plan We'll move the patient out of the intensive care unit to a regular medical surgical floor. Continue bronchodilators. Continue IV Solu Medrol for another 24 hours the same dose. I checked a CPAP machine and the patient abusing his own CPAP machine at APAP mode which is adjusted at the maximum pressure of 9 and pressure of 4. Smoking cessation counseling was done. Hemodynamically stable. We'll continue to follow.
[2018-01-12 11:56] LABS: Glucose,Whole Blood 131 mg/dL (75-99)
[2018-01-12] MEDS: MULTIVITAMINS, THERA 1 EACH TAB PO SCH (12:16)
--- NOTE | 2018-01-12 13:57 | PN ---
PROGRESS NOTE DATE OF SERVICE: 01/12/2018 This is a 57-year-old gentleman with a past medical history of multiple medical problems was admitted with COPD acute exacerbation, acute respiratory failure. The patient is improving significantly. Patient has no chest pain. No palpitations. No fever. Dr. Valencia is following the patient closely. PHYSICAL EXAM: Alert and oriented x3. Pulse 93, blood pressure 140/91, respiration 20, temperature 97.5, pulse ox 94% on 3 L. HEENT: Conjunctivae normal. NECK: No jugular venous distension. CARDIOVASCULAR: S1, S2, muffled. RESPIRATION: Breath sounds diminished at the bases, a few scattered rhonchi, no crackles. Expiratory wheezing also present. ABDOMEN: Soft. NERVOUS SYSTEM: No focal deficits. LEGS: No edema, no swelling. LAB STUDIES: WBC is 10.7, glucose 129, magnesium 2.2. ASSESSMENT: 1. Chronic obstructive pulmonary disease acute exacerbation with acute purulent tracheobronchitis with acute hypoxic respiratory failure on BiPAP, history of possible bibasilar bronchopneumonia, possibly gram-negative. 2. BiPAP dependent. 3. Acute on chronic hypoxic respiratory failure. 4. Ongoing nicotine dependence. 5. Obstructive sleep apnea. 6. Increased random blood sugar. 7. 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 RECOMMENDATION: Recommend to continue current management and symptomatic treatment; otherwise, at this time I will recommend continue with, bronchodilators, antibiotics. Prognosis guarded. Further recommendations to follow. MMODL / IJN: [id number] / MTDD
[2018-01-12 16:40] LABS: Glucose,Whole Blood 152 mg/dL (75-99)
[2018-01-12 21:44] LABS: Glucose,Whole Blood 148 mg/dL (75-99)
[2018-01-13] MEDS: methylPREDNISolone SOD SUCCI 125 MG/2 ML VIAL IV SCH ×2 (05:10→14:00)
[2018-01-13] MEDS: PROMETHAZ-COD 6.25-10 MG/5 ML 5 ML CUP PO SCH ×2 (05:10→14:00)
[2018-01-13] MEDS: IPRATROPIUM-ALBUTEROL 3 ML NEB INHALATION SCH ×3 (06:31→15:19)
[2018-01-13] MEDS: FORMOTEROL FUMARATE 20 MCG/2 ML NEBU INHALATION SCH (06:31)
[2018-01-13] MEDS: BUDESONIDE 1 MG/2 ML NEBU INHALATION SCH (06:31)
[2018-01-13 07:46] LABS: Glucose,Whole Blood 145 mg/dL (75-99)
[2018-01-13] MEDS: HEPARIN SODIUM,PORCINE 5,000 UNIT/ML 1 ML VIAL SQ SCH (08:17)
[2018-01-13] MEDS: THEOPHYLLINE 24 HOUR 200 MG CAP.ER.24H PO SCH (08:17)
[2018-01-13] MEDS: LORATADINE 10 MG TAB PO SCH (08:17)
[2018-01-13] MEDS: INSULIN ASPART 100 UNIT/ML 1 ML 10 ML VIAL SQ SCH ×2 (08:17→14:01)
[2018-01-13] MEDS: NICOTINE 14MG/24HR PATCH TRANSDERM SCH (08:18)
[2018-01-13 10:09] LABS: Anion Gap 6 mmol/L; Blood Urea Nitrogen 20 mg/dL (9-20); Calcium 8.5 mg/dL (8.4-10.2); Carbon Dioxide 33 mmol/L (22-30); Chloride 95 mmol/L (98-107); Glucose 304 mg/dL (74-99); Potassium 4.7 mmol/L (3.5-5.1); Sodium 134 mmol/L (137-145)
--- NOTE | 2018-01-13 10:24 | XR ---
EXAMINATION TYPE: XR chest 1V portable DATE OF EXAM: 01/13/2018 COMPARISON: Prior chest x-ray 01/12/2018 HISTORY: Respiratory distress TECHNIQUE: Single frontal view of the chest is obtained. FINDINGS: There is no focal air space opacity, pleural effusion, or pneumothorax seen. The cardiac silhouette size is within normal limits. The osseous structures are intact. Prominent lung volumes again noted. IMPRESSION: No acute process.
[2018-01-13 10:25] LABS: Basophils % (A) 0 %; Eosinophils % (A) 0 %; HCT 41.3 % (39.0-53.0); HGB 13.4 gm/dL (13.0-17.5); Lymphocytes # (A) 0.3 k/uL (1.0-4.8); Lymphocytes % (A) 3 %; MCH 31.5 pg (25.0-35.0); MCHC 32.5 g/dL (31.0-37.0); MCV 96.8 fL (80.0-100.0); Mean Platelet Volume 7.4; Monocytes # (A) 0.2 k/uL (0-1.0); Monocytes % (A) 2 %; Neutrophils # (A) 8.2 k/uL (1.3-7.7); Neutrophils % (A) 94 %; Platelet Count 211 k/uL (150-450); RBC 4.26 m/uL (4.30-5.90); RDW 13.2 % (11.5-15.5); WBC 8.8 k/uL (3.8-10.6)
[2018-01-13 11:53] LABS: Glucose,Whole Blood 139 mg/dL (75-99)
[2018-01-13] MEDS ORDERED: FUROSEMIDE 10 MG/ML 4 ML VIAL IV STA (13:07)
[2018-01-13] MEDS: MULTIVITAMINS, THERA 1 EACH TAB PO SCH (14:00)
[2018-01-13 14:10] VITALS: BP 155/81; PULSE 106; RESP 20; TEMP 97
--- NOTE | 2018-01-13 16:44 | P.PN ---
Subjective Progress Note Date: 01/13/18 Principal diagnosis: Acute on chronic hypoxic respiratory failure secondary to acute exacerbation of chronic obstructive pulmonary disease Pulmonary and critical care consultation dated 01/05/2018 This is a 57-year-old male with a history of severe COPD. He states that over the last week, he had worsening shortness of breath and cough. He is coughing up some phlegm not a lot. He's been using his updrafts unit home without much benefit. He is also been using his oxygen. Denies any fever or chills. Not coughing up any blood. There is no chest pain or chest discomfort. No palpitations. No nausea vomiting or diarrhea. The patient continues to smoke cigarettes. His past medical history includes COPD, osteoporosis, sleep apnea syndrome, kidney stones and a previous hernia repair. Unfortunately as mentioned above, the patient continues to smoke cigarettes more than a pack a day. The patient states that the updrafts seem to be making his breathing worse. He has been using his updraft machine at home though. He has NO KNOWN DRUG ALLERGIES. Progress note dated 01/06/2018 The patient is seen again today in follow-up on the regular medical floor. He is awake and alert. He is in mild pulmonary distress. He had been utilizing the BiPAP through most of the evening and this morning. Currently off the BiPAP and on 4 L/m per nasal cannula. He is quite short of breath with minimal exertion. This making conversation as well. He's been afebrile. Tachypneic. Tachycardic. White count 12.1. Hemoglobin 14.0. Creatinine 0.89. He is on DuoNeb inhalations 4 times a day and when necessary, Pulmicort and Perforomist inhalations twice a day, Tessalon perles, IV Solu-Medrol, theophylline Xanax, antibiotics in the form of Levaquin and azithromycin. Blood cultures reveal no growth. Progress note dated 01/07/2018 The patient is seen again today in follow-up on the regular medical floor. He is awake and alert in no significant distress. He is currently resting in bed on the BiPAP. Settings of 12/8 at 50% FiO2. He states he is breathing easier today as compared to yesterday. He is a little more comfortable and relaxed. He remains slightly tachypneic and tachycardic. He is afebrile. Blood and urine cultures reveal no growth. White count 13.2. Hemoglobin 13.6. Creatinine 0.83. On 01/11/2018 patient seen in follow-up in the intensive care unit. Currently off BiPAP support, fairly comfortable at rest, his breathing easier, not in any distress, vital signs are stable, slightly tachycardic at times, sinus mechanism , currently on 5 L per nasal cannula his pulse ox is 96%, hemodynamically stable. Did wear the BiPAP at pressures of 12 and 6 last night briefly, overall his breathing has much improved, lung sounds are diminished to auscultation, no wheezes or rhonchi noted. Patient has been tolerating ambulation in the room. Labs were reviewed, showed WBC of 9.8, hemoglobin 13.5 , sodium of 137, potassium is 4.8, chloride is 98, CO2 32, BUN is 24 creatinine 0.68. Patient remains on nebulized bronchodilators, IV steroids, theophylline, Pulmicort and Perforomist. Clinically improving. On 01/13/2018 patient seen in follow-up on medical surgical floor. Continues to improve, currently just on room air, pulse ox is 95%, and less bronchospastic and dyspneic, patient has been ambulating, tolerating activity well, he is afebrile. Vital signs are stable. Today's chest x-ray was reviewed and showed no acute process. Patient states he developed some nonpitting edema in his lower extremities, we'll give the patient a dose of IV Lasix, he can be discharged home from pulmonary perspective. He was given a new nasal pillow mask Dreamwear for his CPAP, fitted by Dr. Valencia, patient states feels much more comfortable, and patient will be able to do his nebulized treatments while on CPAP. Objective - Vital Signs Vital signs: Vital Signs Temp 97.0 F L 01/13/18 13:40 Pulse 106 H 01/13/18 13:40 Resp 20 01/13/18 13:40 BP 155/81 01/13/18 13:40 Pulse Ox 95 01/13/18 13:40 Intake & Output 01/12/18 01/13/18 01/13/18 18:59 06:59 18:59 Intake Total 360 560 Output Total 0 Balance 360 560 Weight 72.3 kg Intake: Oral 360 560 Output: Urine 0 Other: Voiding Method Toilet # Voids 1 1 3 - Exam GENERAL EXAM: Alert, pleasant, 57-year-old white male on room air, comfortable in no apparent distress. HEAD: Normocephalic/atraumatic. EYES: Normal reaction of pupils, equal size. Conjunctiva pink, sclera white. NOSE: Clear with pink turbinates. THROAT: No erythema or exudates. NECK: No masses, no JVD, no thyroid enlargement, no adenopathy. CHEST: No chest wall deformity. Symmetrical expansion. LUNGS: Diminished breath sounds bilaterally, no rhonchi or wheezes noted CVS: Regular rate and rhythm, normal S1 and S2, no gallops, no murmurs, no rubs ABDOMEN: Soft, nontender. No hepatosplenomegaly, normal bowel sounds, no guarding or rigidity. EXTREMITIES: No clubbing, no edema, no cyanosis, 2+ pulses and upper and lower extremities. MUSCULOSKELETAL: Muscle strength and tone normal. SPINE: No scoliosis or deformity SKIN: No rashes CENTRAL NERVOUS SYSTEM: Alert and oriented -3. No focal deficits, tone is normal in all 4 extremities. PSYCHIATRIC: Alert and oriented -3. Appropriate affect. Intact judgment and insight. - Labs CBC & Chem 7: 01/13/18 09:37 01/13/18 09:37 Labs: Abnormal Lab Results - Last 24 Hours (Table) 01/12/18 01/12/18 01/13/18 Range/Units 16:38 21:42 07:36 RBC (4.30-5.90) m/uL Neutrophils # (1.3-7.7) k/uL Lymphocytes # (1.0-4.8) k/uL Sodium (137-145) mmol/L Chloride (98-107) mmol/L Carbon Dioxide (22-30) mmol/L Glucose (74-99) mg/dL POC Glucose (mg/dL) 152 H 148 H 145 H (75-99) mg/dL 01/13/18 01/13/18 01/13/18 Range/Units 09:37 09:37 11:49 RBC 4.26 L (4.30-5.90) m/uL Neutrophils # 8.2 H (1.3-7.7) k/uL Lymphocytes # 0.3 L (1.0-4.8) k/uL Sodium 134 L (137-145) mmol/L Chloride 95 L (98-107) mmol/L Carbon Dioxide 33 H (22-30) mmol/L Glucose 304 H (74-99) mg/dL POC Glucose (mg/dL) 139 H (75-99) mg/dL Assessment and Plan Plan: COPD exacerbation complicated by tracheobronchitis Acute on chronic hypoxemic respiratory failure History of ongoing tobacco use with nicotine addiction her graft osteoporosis Probable secondary pulmonary hypertension History of sleep apnea syndrome, currently not utilizing his CPAP at home, he states he wants to switch to a nasal pillow mask, he can do his updrafts at night History of kidney stones Status post hernia repair History of anxiety Plan: Patient has significantly improved, much less bronchospastic, less dyspneic, lung sounds are stable, no acute events overnight, currently on room air. She does have a oxygen concentrator at home and he wears oxygen on as-needed basis. He can complete a course of oral antibiotics, and prednisone taper, and he can continue his maintenance inhalers and nebulized treatments including Dulera. We gave him a new nasal pillow CPAP mask, Dreamware and it was fitted to patient's face and Dr. Valencia. He can continue on his home CPAP, he states this time he is going to quit smoking. Follow-up with Dr. Davis in the office within one week I performed a history & physical examination of the patient and discussed their management with my nurse practitioner, Gay Fiore. I reviewed the nurse practitioner's note and agree with the documented findings and plan of care. Lung sounds are diminished breath sounds bilaterally. The findings and the impression was discussed with the patient. I attest to the documentation by the nurse practitioner. Time with Patient: Less than 30
== END 2018-01-13 16:22 | disposition home or self-care (01) | DRG 190 ==
LOC: EC 13:14 → 3SCARD 14:49 → 3NMEDONC 01-05 23:00 → 2SICU 01-09 14:35 → 4MS4W 01-12 13:05
PROVIDERS: ADMIT Internal Medicine; ATTEND Internal Medicine
PROC: 5A09357 Assistance with Respiratory Ventilation, Less than 24 Consecutive Hours, Continuous Positive Airway Pressure (ICD-10-PCS; principal; 2018-01-04)
DX: J44.1 Chronic obstructive pulmonary disease with (acute) exacerbation (principal); J18.0 Bronchopneumonia, unspecified organism; J96.21 Acute and chronic respiratory failure with hypoxia; J96.22 Acute and chronic respiratory failure with hypercapnia; J44.0 Chronic obstructive pulmonary disease with (acute) lower respiratory infection; J20.9 Acute bronchitis, unspecified; Z71.6 Tobacco abuse counseling; F17.290 Nicotine dependence, other tobacco product, uncomplicated; F17.210 Nicotine dependence, cigarettes, uncomplicated; F41.9 Anxiety disorder, unspecified; G47.33 Obstructive sleep apnea (adult) (pediatric); I27.29 Other secondary pulmonary hypertension; M81.0 Age-related osteoporosis without current pathological fracture; Z79.51 Long term (current) use of inhaled steroids; Z79.52 Long term (current) use of systemic steroids; Z79.83 Long term (current) use of bisphosphonates; Z80.1 Family history of malignant neoplasm of trachea, bronchus and lung; Z82.5 Family history of asthma and other chronic lower respiratory diseases; Z87.442 Personal history of urinary calculi; Z99.81 Dependence on supplemental oxygen; R60.0 Localized edema; Z79.2 Long term (current) use of antibiotics; Z79.899 Other long term (current) drug therapy; I10 Essential (primary) hypertension; Z87.01 Personal history of pneumonia (recurrent)
CPT/HCPCS: 36415; 71045; 80048; 80053; 82550; 82553; 83036; 83605; 83735; 83880; 84100; 84484; 85025; 85610; 85730; 87040; 87086; 87502; 93005; 94640; 94660; 94760; 96374; 99291

== ENCOUNTER 2018-03-30 17:14 | Inpatient (IN) | payer BC, OTHER ==
[2018-03-30] MEDS ORDERED: IPRATROPIUM 0.5 MG/2.5 ML NEBU INHALATION STA (17:15)
[2018-03-30] MEDS ORDERED: ALBUTEROL NEBULIZED 2.5 MG/3 ML INHALATION STA ×2 (17:15→18:00)
[2018-03-30] MEDS ORDERED: LEVOFLOXACIN 750MG-D5W PMX 750 MG in DEXTROSE/WATER 1 150ML.BAG IVPB STA (17:15)
--- NOTE | 2018-03-30 17:19 | ED ---
General Adult HPI - General Stated complaint: Sob Time Seen by Provider: 03/30/18 17:15 Source: patient, EMS, RN notes reviewed, old records reviewed - History of Present Illness Initial comments: 57-year-old male history of COPD presenting with severe cough and dyspnea. Patient has had 3 days of worsening symptoms. He states he did feel that he caught a respiratory infection from his . He's had myalgias and subjective fever and chills. Denies chest pain. Denies lower extremity pain or swelling. Patient was transported by EMS, given 5 albuterol, 0.5 mg Atrovent, and 125 mg IV Medrol prior to arrival. He was placed on CPAP during transport. History is somewhat limited secondary to severe respiratory distress. - Related Data Home Medications Medication Instructions Recorded Confirmed Fexofenadine HCl [Alaina Allergy] 180 mg PO DAILY 03/21/15 03/30/18 Mometasone/Formoterol [Dulera 200 2 puff INHALATION RT-BID 03/21/15 03/30/18 Mcg/5 Mcg Inhaler] Albuterol Sulfate [Proair Hfa] 2 puff INHALATION RT-QID PRN 07/28/16 03/30/18 Alendronate Sodium [Fosamax] 70 mg PO DE [place] CRUZ 07/28/16 03/30/18 Theophylline Anhydrous [Uniphyl] 200 mg PO BID 12/20/16 03/30/18 Ipratropium-Albuterol Nebulize 3 ml INHALATION RT-QID PRN 01/04/18 03/30/18 [Duoneb 0.5 mg-3 mg/3 ml Soln] Azithromycin 250 mg PO Q48H 03/30/18 03/30/18 Previous Rx's Medication Instructions Recorded predniSONE 5 mg PO DAILY #0 12/23/16 Allergies Allergy/AdvReac Type Severity Reaction Status Date / Time No Known Allergies Allergy Verified 03/30/18 17:57 Review of Systems ROS Statement: Those systems with pertinent positive or pertinent negative responses have been documented in the HPI. ROS Other: All systems not noted in ROS Statement are negative. Past Medical History Past Medical History: Asthma, COPD, Sleep Apnea/CPAP/BIPAP Additional Past Medical History / Comment(s): kidney stones, CPAP/oxygen at night. History of Any Multi-Drug Resistant Organisms: None Reported Past Surgical History: Hernia Repair Additional Past Surgical History / Comment(s): . Past Anesthesia/Blood Transfusion Reactions: No Reported Reaction Additional Past Anesthesia/Blood Transfusion Reaction / Comment(s): no blood transfusions Smoking Status: Current every day smoker - Past Family History Father Family Medical History: COPD Additional Family Medical History / Comment(s): of lung cancer Mother Family Medical History: Asthma General Exam General appearance: alert, in distress Head exam: Present: atraumatic, normocephalic Eye exam: Present: normal appearance. Absent: PERRL, EOMI ENT exam: Present: normal exam Neck exam: Present: normal inspection. Absent: tenderness, meningismus Respiratory exam: Present: respiratory distress, wheezes, accessory muscle use, decreased breath sounds, prolonged expiratory Cardiovascular Exam: Present: regular rate, normal rhythm GI/Abdominal exam: Present: soft, distended. Absent: tenderness, guarding, rebound Extremities exam: Present: normal inspection, normal capillary refill. Absent: pedal edema, calf tenderness Back exam: Present: normal inspection, full ROM Neurological exam: Present: alert, oriented X3, CN II-XII intact. Absent: motor sensory deficit Psychiatric exam: Present: normal affect, normal mood Skin exam: Present: warm, dry, intact. Absent: cyanosis, diaphoretic Course Vital Signs 03/30/18 03/30/18 03/30/18 17:20 17:25 17:32 Pulse Rate 135 H 137 H 135 H Respiratory 44 H Rate Blood Pressure 167/109 O2 Sat by Pulse 99 Oximetry 03/30/18 03/30/18 18:54 19:05 Pulse Rate 118 H 130 H Respiratory Rate Blood Pressure O2 Sat by Pulse Oximetry - Reevaluation(s) Reevaluation #1: 03/30/18 19:10 Patient still on BiPAP, so improved. Will be admitted to ICU for close monitoring. EKG Findings - EKG Comments: EKG Findings:: EKG: Sinus tachycardia, right atrial enlargement, rightward axis , pulmonary disease pattern, rate of 133, NV interval 150, QRS duration 94, QTC 422 STsegmentelevation Medical Decision Making - Medical Decision Making 57 year old male presenting with severe dyspnea, symptoms progressive over 3 days. Patient is in severe respiratory distress on initial evaluation, on CPAP by EMS, placed on BiPAP and emergency department. Patient has minimal air entry. Single view chest is obtained, shows hyperinflation, no pneumothorax, no focal pneumonia. Patient has normal white blood cell count, stable hemoglobin, normal CMP, troponin and BNP are negative. Influenza A is positive. Patient started on Tamiflu. Given the severity of the patient's respiratory status, will be maintained on BiPAP, will be admitted to the ICU for close monitoring. Case is discussed with Dr. Sorto. Case discussed with admitting physician will accept. - Lab Data Result diagrams: 03/30/18 17:29 03/30/18 17:29 Lab Results 03/30/18 03/30/18 03/30/18 Range/Units 17:29 17:29 17:29 WBC 6.4 (3.8-10.6) k/uL RBC 5.11 (4.30-5.90) m/uL Hgb 15.8 (13.0-17.5) gm/dL Hct 48.7 (39.0-53.0) % MCV 95.2 (80.0-100.0) fL MCH 30.9 (25.0-35.0) pg MCHC 32.5 (31.0-37.0) g/dL RDW 13.3 (11.5-15.5) % Plt Count 165 (150-450) k/uL Neutrophils % 86 % Lymphocytes % 8 % Monocytes % 4 % Eosinophils % 1 % Basophils % 0 % Neutrophils # 5.5 (1.3-7.7) k/uL Lymphocytes # 0.5 L (1.0-4.8) k/uL Monocytes # 0.3 (0-1.0) k/uL Eosinophils # 0.1 (0-0.7) k/uL Basophils # 0.0 (0-0.2) k/uL PT (9.0-12.0) sec INR (<1.2) APTT (22.0-30.0) sec Sodium 138 (137-145) mmol/L Potassium 4.7 (3.5-5.1) mmol/L Chloride 100 (98-107) mmol/L Carbon Dioxide 28 (22-30) mmol/L Anion Gap 10 mmol/L BUN 18 (9-20) mg/dL Creatinine 0.61 L (0.66-1.25) mg/dL Est GFR (CKD-EPI)AfAm >90 (>60 ml/min/1.73 sqM) Est GFR (CKD-EPI)NonAf >90 (>60 ml/min/1.73 sqM) Glucose 127 H (74-99) mg/dL Plasma Lactic Acid Joao (0.7-2.0) mmol/L Calcium 8.9 (8.4-10.2) mg/dL Magnesium 2.1 (1.6-2.3) mg/dL Total Bilirubin 0.5 (0.2-1.3) mg/dL AST 28 (17-59) U/L ALT 31 (21-72) U/L Alkaline Phosphatase 62 (38-126) U/L Total Creatine Kinase 253 H (55-170) U/L CK-MB (CK-2) 7.8 H (0.0-2.4) ng/mL CK-MB (CK-2) Rel Index 3.1 Troponin I <0.012 (0.000-0.034) ng/mL NT-Pro-B Natriuret Pep pg/mL Total Protein 6.9 (6.3-8.2) g/dL Albumin 4.4 (3.5-5.0) g/dL Influenza Type A RNA (Not Detectd) Influenza Type B (PCR) (Not Detectd) 03/30/18 03/30/18 03/30/18 Range/Units 17:29 17:29 17:29 WBC (3.8-10.6) k/uL RBC (4.30-5.90) m/uL Hgb (13.0-17.5) gm/dL Hct (39.0-53.0) % MCV (80.0-100.0) fL MCH (25.0-35.0) pg MCHC (31.0-37.0) g/dL RDW (11.5-15.5) % Plt Count (150-450) k/uL Neutrophils % % Lymphocytes % % Monocytes % % Eosinophils % % Basophils % % Neutrophils # (1.3-7.7) k/uL Lymphocytes # (1.0-4.8) k/uL Monocytes # (0-1.0) k/uL Eosinophils # (0-0.7) k/uL Basophils # (0-0.2) k/uL PT 10.9 (9.0-12.0) sec INR 1.0 (<1.2) APTT 26.8 (22.0-30.0) sec Sodium (137-145) mmol/L Potassium (3.5-5.1) mmol/L Chloride (98-107) mmol/L Carbon Dioxide (22-30) mmol/L Anion Gap mmol/L BUN (9-20) mg/dL Creatinine (0.66-1.25) mg/dL Est GFR (CKD-EPI)AfAm (>60 ml/min/1.73 sqM) Est GFR (CKD-EPI)NonAf (>60 ml/min/1.73 sqM) Glucose (74-99) mg/dL Plasma Lactic Acid Joao 1.5 (0.7-2.0) mmol/L Calcium (8.4-10.2) mg/dL Magnesium (1.6-2.3) mg/dL Total Bilirubin (0.2-1.3) mg/dL AST (17-59) U/L ALT (21-72) U/L Alkaline Phosphatase (38-126) U/L Total Creatine Kinase (55-170) U/L CK-MB (CK-2) (0.0-2.4) ng/mL CK-MB (CK-2) Rel Index Troponin I (0.000-0.034) ng/mL NT-Pro-B Natriuret Pep 99 pg/mL Total Protein (6.3-8.2) g/dL Albumin (3.5-5.0) g/dL Influenza Type A RNA (Not Detectd) Influenza Type B (PCR) (Not Detectd) 03/30/18 Range/Units 17:58 WBC (3.8-10.6) k/uL RBC (4.30-5.90) m/uL Hgb (13.0-17.5) gm/dL Hct (39.0-53.0) % MCV (80.0-100.0) fL MCH (25.0-35.0) pg MCHC (31.0-37.0) g/dL RDW (11.5-15.5) % Plt Count (150-450) k/uL Neutrophils % % Lymphocytes % % Monocytes % % Eosinophils % % Basophils % % Neutrophils # (1.3-7.7) k/uL Lymphocytes # (1.0-4.8) k/uL Monocytes # (0-1.0) k/uL Eosinophils # (0-0.7) k/uL Basophils # (0-0.2) k/uL PT (9.0-12.0) sec INR (<1.2) APTT (22.0-30.0) sec Sodium (137-145) mmol/L Potassium (3.5-5.1) mmol/L Chloride (98-107) mmol/L Carbon Dioxide (22-30) mmol/L Anion Gap mmol/L BUN (9-20) mg/dL Creatinine (0.66-1.25) mg/dL Est GFR (CKD-EPI)AfAm (>60 ml/min/1.73 sqM) Est GFR (CKD-EPI)NonAf (>60 ml/min/1.73 sqM) Glucose (74-99) mg/dL Plasma Lactic Acid Joao (0.7-2.0) mmol/L Calcium (8.4-10.2) mg/dL Magnesium (1.6-2.3) mg/dL Total Bilirubin (0.2-1.3) mg/dL AST (17-59) U/L ALT (21-72) U/L Alkaline Phosphatase (38-126) U/L Total Creatine Kinase (55-170) U/L CK-MB (CK-2) (0.0-2.4) ng/mL CK-MB (CK-2) Rel Index Troponin I (0.000-0.034) ng/mL NT-Pro-B Natriuret Pep pg/mL Total Protein (6.3-8.2) g/dL Albumin (3.5-5.0) g/dL Influenza Type A RNA Detected H (Not Detectd) Influenza Type B (PCR) Not Detected (Not Detectd) Disposition Clinical Impression: Acute exacerbation of chronic obstructive airways disease, Influenza A Disposition: ADMITTED IP TO THIS HOSP Condition: Serious Is patient prescribed a controlled substance at d/c from ED?: No Referrals: Naye Doll DO [Primary Care Provider] - 1-2 days Decision to Admit Reason: Admit from EC Decision Date: 03/30/18 Decision Time: 19:15
[2018-03-30] MEDS ORDERED: SODIUM CHLORIDE 0.9% 500 ML 500 ML IV ONE ×2 (17:29→19:05)
[2018-03-30] MEDS: MAGNESIUM SULFATE-D5W PMX 1 GM in DEXTROSE/WATER 1 100ML.BAG IVPB SCH ×2 (17:46→20:10)
[2018-03-30 17:53] LABS: Basophils % (A) 0 %; Eosinophils # (A) 0.1 k/uL (0-0.7); Eosinophils % (A) 1 %; HCT 48.7 % (39.0-53.0); HGB 15.8 gm/dL (13.0-17.5); Lymphocytes # (A) 0.5 k/uL (1.0-4.8); Lymphocytes % (A) 8 %; MCH 30.9 pg (25.0-35.0); MCHC 32.5 g/dL (31.0-37.0); MCV 95.2 fL (80.0-100.0); Mean Platelet Volume 7.8; Monocytes # (A) 0.3 k/uL (0-1.0); Monocytes % (A) 4 %; Neutrophils # (A) 5.5 k/uL (1.3-7.7); Neutrophils % (A) 86 %; Platelet Count 165 k/uL (150-450); RBC 5.11 m/uL (4.30-5.90); RDW 13.3 % (11.5-15.5); WBC 6.4 k/uL (3.8-10.6)
[2018-03-30 18:07] LABS: Creatine Kinase 253 U/L (55-170)
[2018-03-30 18:09] LABS: ALT 31 U/L (21-72); AST 28 U/L (17-59); Albumin 4.4 g/dL (3.5-5.0); Alkaline Phosphatase 62 U/L (38-126); Anion Gap 10 mmol/L; Blood Urea Nitrogen 18 mg/dL (9-20); Calcium 8.9 mg/dL (8.4-10.2); Carbon Dioxide 28 mmol/L (22-30); Chloride 100 mmol/L (98-107); Glucose 127 mg/dL (74-99); Magnesium 2.1 mg/dL (1.6-2.3); Potassium 4.7 mmol/L (3.5-5.1); Sodium 138 mmol/L (137-145); Total Bilirubin 0.5 mg/dL (0.2-1.3); Total Protein 6.9 g/dL (6.3-8.2)
[2018-03-30 18:20] LABS: Creatine Kinase MB 7.8 ng/mL (0.0-2.4); Troponin I <0.012 ng/mL (0.000-0.034)
[2018-03-30 18:47] LABS: Partial Thromboplastin Time 26.8 sec (22.0-30.0); Prothrombin Time 10.9 sec (9.0-12.0)
--- NOTE | 2018-03-30 18:49 | XR ---
EXAMINATION: XR chest 1V portable DATE AND TIME: 03/30/2018 6:08 PM CLINICAL INDICATION: PH[facility]; wyatt TECHNIQUE: AP upright portable COMPARISON: 01/13/2018 FINDINGS: The lungs are clear. The pleural spaces are predominantly negative. Mild blunting of the posterior annulus are noted bilaterally, could represent small bilateral pleural effusions. The cardiac silhouette is not enlarged. The remainder of the mediastinal silhouette is unremarkable. The skeletal structures and soft tissues are negative for acute findings. IMPRESSION: NO DEFINITE ACUTE PROCESS.
[2018-03-30] MEDS ORDERED: OSELTAMIVIR 75 MG CAP PO STA (18:50)
[2018-03-30] MEDS ORDERED: LORazepam 2 MG/ML INJ IV STA (19:05)
[2018-03-30] MEDS ORDERED: KETOROLAC 30 MG/ML 1 ML VIAL IVP STA (19:05)
[2018-03-30] MEDS ORDERED: ALBUTEROL NEBULIZED 2.5 MG/3 ML INHALATION PRN (19:10)
[2018-03-30] MEDS: IPRATROPIUM-ALBUTEROL 3 ML NEB INHALATION SCH (20:21)
[2018-03-30 21:02] LABS: Glucose,Whole Blood 148 mg/dL (75-99)
[2018-03-30] MEDS: SODIUM CHLORIDE 0.9% 1,000 ML IV SCH (21:48)
[2018-03-30] MEDS ORDERED: NALOXONE 0.4 MG/ML 1 ML VIAL IV PRN (23:10)
[2018-03-30] MEDS: methylPREDNISolone SOD SUCCI 125 MG/2 ML VIAL IV SCH (23:59)
[2018-03-31 00:30] LABS: Glucose,Whole Blood 127 mg/dL (75-99)
[2018-03-31] MEDS ORDERED: LORazepam 2 MG/ML INJ IV PRN (04:20)
[2018-03-31] MEDS: IPRATROPIUM-ALBUTEROL 3 ML NEB INHALATION PRN (05:02)
[2018-03-31 05:20] LABS: Basophils % (A) 0 %; Eosinophils % (A) 0 %; HCT 44.5 % (39.0-53.0); HGB 14.3 gm/dL (13.0-17.5); Lymphocytes # (A) 0.3 k/uL (1.0-4.8); Lymphocytes % (A) 6 %; MCH 31.6 pg (25.0-35.0); MCHC 32.2 g/dL (31.0-37.0); Mean Platelet Volume 7.7; Monocytes # (A) 0.2 k/uL (0-1.0); Monocytes % (A) 3 %; Neutrophils # (A) 4.6 k/uL (1.3-7.7); Neutrophils % (A) 90 %; Platelet Count 162 k/uL (150-450); RBC 4.54 m/uL (4.30-5.90); RDW 13.4 % (11.5-15.5); WBC 5.1 k/uL (3.8-10.6)
[2018-03-31] MEDS: methylPREDNISolone SOD SUCCI 125 MG/2 ML VIAL IV SCH ×3 (05:24→19:06)
[2018-03-31] MEDS: OSELTAMIVIR 75 MG CAP PO SCH ×2 (05:28→19:06)
[2018-03-31 05:30] LABS: Anion Gap 5 mmol/L; Blood Urea Nitrogen 16 mg/dL (9-20); Calcium 8.4 mg/dL (8.4-10.2); Carbon Dioxide 31 mmol/L (22-30); Chloride 102 mmol/L (98-107); Glucose 132 mg/dL (74-99); Magnesium 2.5 mg/dL (1.6-2.3); Potassium 5.2 mmol/L (3.5-5.1); Sodium 138 mmol/L (137-145)
[2018-03-31 05:54] LABS: ABG Base Excess 3.5 mmol/L; ABG HCO3 30 mmol/L (21-25); ABG Oxygen Saturation 97.1 % (94-97); ABG PCO2 64 mmHg (35-45); ABG PH 7.29 (7.35-7.45); ABG PO2 90 mmHg (83-108); ABG TCO2 32 mmol/L (19-24)
[2018-03-31 05:54] LABS: Glucose,Whole Blood 124 mg/dL (75-99)
[2018-03-31] MEDS: PROPOFOL 1,000 MG in EMPTY BAG 1 BAG IV SCH (07:00)
--- NOTE | 2018-03-31 07:04 | XR ---
EXAM: XR Chest, 1 View CLINICAL HISTORY: tube placement TECHNIQUE: Frontal view of the chest. COMPARISON: March 30, 2018. FINDINGS: Distal tip of ET tube is above hilda. Distal tip of enteric tube is in the stomach. Cardiac silhouette and pulmonary vascularity are within normal limits. No focal consolidative process or pleural effusions. IMPRESSION: Appropriately located support lines and tubes. No acute cardiopulmonary process.
[2018-03-31 08:16] LABS: ABG HCO3 29 mmol/L (21-25); ABG PCO2 61 mmHg (35-45); ABG PH 7.28 (7.35-7.45); ABG PO2 >400 mmHg (83-108); ABG TCO2 31 mmol/L (19-24)
[2018-03-31] MEDS: IPRATROPIUM-ALBUTEROL 3 ML NEB INHALATION SCH ×4 (08:25→19:44)
--- NOTE | 2018-03-31 09:03 | XR ---
EXAMINATION TYPE: XR chest 1V DATE OF EXAM: 03/31/2018 COMPARISON: 03/30/2018 HISTORY: Difficulty in breathing TECHNIQUE: Single frontal view of the chest is obtained. FINDINGS: Exam markedly limited as the lower lung joseph are not included on exam. The visualized por tion of the lungs appear clear. No pneumothorax as visualized. Hyperinflation suggests COPD. Slight p ortion of the cardiac silhouette is seen. IMPRESSION: Markedly limited exam demonstrating only approximately two thirds of the chest demonstra cullen no acute infiltrate as visualized. Correlate for COPD.
[2018-03-31] MEDS: HEPARIN SODIUM,PORCINE 5,000 UNIT/ML 1 ML VIAL SQ SCH ×2 (09:42→19:05)
[2018-03-31] MEDS: CHLORHEXIDINE GLUCONATE 15 ML CUP MUCOUS MEM SCH ×2 (09:43→20:56)
[2018-03-31] MEDS: SODIUM CHLORIDE 0.9% 1,000 ML IV SCH ×2 (09:43→21:55)
[2018-03-31] MEDS: FAMOTIDINE 20 MG/2 ML VIAL IV SCH ×2 (09:43→20:56)
[2018-03-31 09:50] LABS: ABG Base Excess 1.9 mmol/L; ABG HCO3 28 mmol/L (21-25); ABG Oxygen Saturation 99.5 % (94-97); ABG PCO2 55 mmHg (35-45); ABG PH 7.32 (7.35-7.45); ABG PO2 172 mmHg (83-108); ABG TCO2 30 mmol/L (19-24)
[2018-03-31] MEDS: LEVOFLOXACIN 500MG-D5W PMX 500 MG in DEXTROSE/WATER 1 100ML.BAG IVPB SCH (11:35)
[2018-03-31 11:45] LABS: Glucose,Whole Blood 156 mg/dL (75-99)
--- NOTE | 2018-03-31 12:21 | P.HPIM ---
History of Present Illness This is a 57-year-old male with a history of severe COPD, nicotine dependence, sleep apnea. who presents with worsening shortness of breath and resp distress, which was going on for 3 days, patient thought that he got some kind of infection of from his . He had myalgias and fever or chills. No chest pain. He needed CPAP during the transport. pt got intubated and he is sedated now , he in the ICU, most of the information was taken from staff and medical records. He came yesterday with respiratory distress with respiratory rate above 30 at times, systolic blood pressure was 120-150s, this morning 95/70. CBC was unremarkable. ABG showing retaining CO2 with acidemia and acidosis. Potassium 5.2, creatinine 0.5. Magnesium 2.5. Chest x-ray, no acute process per Radiologist. EKG shows sinus tachycardia with QTC 422. rate at 133. influenza attesting back positive. Review of Systems CONSTITUTIONAL: No fever, no malaise, no fatigue. HEENT: No recent visual problems or hearing problems. Denied any sore throat. CARDIOVASCULAR: No orthopnea, PND, no palpitations, no syncope. PULMONARY: No shortness of breath, no cough, no hemoptysis. GASTROINTESTINAL: No diarrhea, no nausea, no vomiting, no abdominal pain. Normoactive bowel sounds. NEUROLOGICAL: No headaches, no weakness, no numbness. HEMATOLOGICAL: Denies any bleeding or petechiae. GENITOURINARY: Denies any burning micturition, frequency, or urgency. MUSCULOSKELETAL/RHEUMATOLOGICAL: Denies any joint pain, swelling, or any muscle pain. ENDOCRINE: Denies any polyuria or polydipsia. Past Medical History Past Medical History: Asthma, COPD, Sleep Apnea/CPAP/BIPAP Additional Past Medical History / Comment(s): kidney stones, CPAP/oxygen at night, potential Diabetes (Possibly steroids involved) History of Any Multi-Drug Resistant Organisms: None Reported Past Surgical History: Hernia Repair Additional Past Surgical History / Comment(s): . Past Anesthesia/Blood Transfusion Reactions: No Reported Reaction Additional Past Anesthesia/Blood Transfusion Reaction / Comment(s): no blood transfusions Past Psychological History: Anxiety Additional Psychological History / Comment(s): anxiety with shortness of breath. Smoking Status: Current some day smoker Past Alcohol Use History: Occasional Additional Past Alcohol Use History / Comment(s): started smoking at age 16 used to smoke 1.5 ppd, "very infrequent now" Past Drug Use History: Marijuana - Past Family History Father Family Medical History: COPD Additional Family Medical History / Comment(s): of lung cancer Mother Family Medical History: Asthma Medications and Allergies Home Medications Medication Instructions Recorded Confirmed Type Fexofenadine HCl [Alaina Allergy] 180 mg PO DAILY 03/21/15 03/30/18 History Mometasone/Formoterol [Dulera 200 2 puff INHALATION RT-BID 03/21/15 03/30/18 History Mcg/5 Mcg Inhaler] Albuterol Sulfate [Proair Hfa] 2 puff INHALATION RT-QID PRN 07/28/16 03/30/18 History Alendronate Sodium [Fosamax] 70 mg PO DE LA CRUZ 07/28/16 03/30/18 History Theophylline Anhydrous [Uniphyl] 200 mg PO BID 12/20/16 03/30/18 History predniSONE 5 mg PO DAILY #0 12/23/16 03/30/18 Rx Ipratropium-Albuterol Nebulize 3 ml INHALATION RT-QID PRN 01/04/18 03/30/18 History [Duoneb 0.5 mg-3 mg/3 ml Soln] Azithromycin 250 mg PO Q48H 03/30/18 03/30/18 History Allergies Allergy/AdvReac Type Severity Reaction Status Date / Time No Known Allergies Allergy Verified 03/30/18 17:57 Physical Exam Vitals: Vital Signs Temp Pulse Resp BP BP Pulse Ox 03/31/18 10:00 93 20 95/70 97 03/31/18 09:30 90 20 101/73 97 03/31/18 09:00 89 20 88/65 97 03/31/18 08:37 95 03/31/18 08:30 91 15 103/82 97 03/31/18 08:25 90 03/31/18 08:00 97.7 F 95 38 H 87/73 97 03/31/18 07:30 93 21 106/76 98 03/31/18 07:00 96 16 105/77 98 03/31/18 06:30 105 H 37 H 119/94 93 L 03/31/18 06:00 102 H 31 H 149/104 96 03/31/18 05:30 105 H 31 H 149/104 96 03/31/18 05:16 104 H 03/31/18 05:02 105 H 03/31/18 05:00 108 H 26 H 162/105 95 03/31/18 04:30 111 H 35 H 162/105 95 03/31/18 04:00 99.2 F 118 H 29 H 150/98 95 03/31/18 03:30 99 22 150/98 98 03/31/18 03:14 97 03/31/18 03:00 111 H 28 H 138/85 93 L 03/31/18 02:30 97 26 H 138/85 97 03/31/18 02:00 100 29 H 146/80 97 03/31/18 01:30 111 H 28 H 146/80 92 L 03/31/18 01:00 101 H 25 H 127/90 95 03/31/18 00:30 28 H 127/90 95 03/31/18 00:02 102 H 32 H 96 03/31/18 00:00 98.8 F 101 H 24 127/90 96 03/30/18 23:30 101 H 22 96 03/30/18 23:00 98 28 H 128/85 98 03/30/18 22:00 105 H 19 130/97 95 03/30/18 21:00 111 H 20 145/101 97 03/30/18 20:31 116 H 03/30/18 20:22 117 H 03/30/18 20:00 124 H 30 H 138/90 99 03/30/18 19:52 96.3 F L 28 H 145/81 97 03/30/18 19:30 128 H 33 H 160/100 100 03/30/18 19:05 130 H 03/30/18 19:00 121 H 30 H 156/102 99 03/30/18 18:54 118 H 03/30/18 18:30 120 H 30 H 164/96 100 03/30/18 18:00 129 H 31 H 154/97 97 03/30/18 17:32 135 H 03/30/18 17:30 133 H 30 H 167/109 96 03/30/18 17:25 137 H 03/30/18 17:20 135 H 44 H 167/109 99 03/30/18 17:19 130 H 32 H 167/109 96 Intake and Output 03/30/18 03/31/18 03/31/18 22:59 06:59 14:59 Intake Total 150 600 300 Output Total 0 800 295 Balance 150 -200 5 Intake: IV 150 600 300 Sodium Chloride 0.9% 1, 150 600 300 000 ml @ 75 mls/hr IV . [id number] [facility] Rx#:[id number] Output: Urine 0 800 295 Other: Weight 65.9 kg 69.2 kg GENERAL: The patient is alert and oriented x3, not in any acute distress. Well developed, well nourished. HEENT: Pupils are round and equally reacting to light. EOMI. No scleral icterus. No conjunctival pallor. Normocephalic, atraumatic. No pharyngeal erythema. No thyromegaly. CARDIOVASCULAR: S1 and S2 present. No murmurs, rubs, or gallops. PULMONARY: Chest is clear to auscultation, no wheezing or crackles. ABDOMEN: Soft, nontender, nondistended, normoactive bowel sounds. No palpable organomegaly. MUSCULOSKELETAL: No joint swelling or deformity. EXTREMITIES: No cyanosis, clubbing, or pedal edema. NEUROLOGICAL: Gross neurological examination did not reveal any focal deficits. SKIN: No rashes. Results CBC & Chem 7: 03/31/18 05:01 03/31/18 05:01 Labs: Abnormal Lab Results - Last 24 Hours (Table) 03/30/18 03/30/18 03/30/18 Range/Units 17:29 17:29 17:29 Lymphocytes # 0.5 L (1.0-4.8) k/uL ABG pH (7.35-7.45) ABG pCO2 (35-45) mmHg ABG pO2 (83-108) mmHg ABG HCO3 (21-25) mmol/L ABG Total CO2 (19-24) mmol/L ABG O2 Saturation (94-97) % Potassium (3.5-5.1) mmol/L Carbon Dioxide (22-30) mmol/L Creatinine 0.61 L (0.66-1.25) mg/dL Glucose 127 H (74-99) mg/dL POC Glucose (mg/dL) (75-99) mg/dL Magnesium (1.6-2.3) mg/dL Total Creatine Kinase 253 H (55-170) U/L CK-MB (CK-2) 7.8 H (0.0-2.4) ng/mL Influenza Type A RNA (Not Detectd) 03/30/18 03/30/18 03/31/18 Range/Units 17:58 20:59 00:28 Lymphocytes # (1.0-4.8) k/uL ABG pH (7.35-7.45) ABG pCO2 (35-45) mmHg ABG pO2 (83-108) mmHg ABG HCO3 (21-25) mmol/L ABG Total CO2 (19-24) mmol/L ABG O2 Saturation (94-97) % Potassium (3.5-5.1) mmol/L Carbon Dioxide (22-30) mmol/L Creatinine (0.66-1.25) mg/dL Glucose (74-99) mg/dL POC Glucose (mg/dL) 148 H 127 H (75-99) mg/dL Magnesium (1.6-2.3) mg/dL Total Creatine Kinase (55-170) U/L CK-MB (CK-2) (0.0-2.4) ng/mL Influenza Type A RNA Detected H (Not Detectd) 03/31/18 03/31/18 03/31/18 Range/Units 05:01 05:01 05:49 Lymphocytes # 0.3 L (1.0-4.8) k/uL ABG pH 7.29 L (7.35-7.45) ABG pCO2 64 H (35-45) mmHg ABG pO2 (83-108) mmHg ABG HCO3 30 H (21-25) mmol/L ABG Total CO2 32 H (19-24) mmol/L ABG O2 Saturation 97.1 H (94-97) % Potassium 5.2 H (3.5-5.1) mmol/L Carbon Dioxide 31 H (22-30) mmol/L Creatinine 0.58 L (0.66-1.25) mg/dL Glucose 132 H (74-99) mg/dL POC Glucose (mg/dL) (75-99) mg/dL Magnesium 2.5 H (1.6-2.3) mg/dL Total Creatine Kinase (55-170) U/L CK-MB (CK-2) (0.0-2.4) ng/mL Influenza Type A RNA (Not Detectd) 0203/31/18 03/31/18 Range/Units 05:53 08:14 09:48 Lymphocytes # (1.0-4.8) k/uL ABG pH 7.28 L 7.32 L (7.35-7.45) ABG pCO2 61 H 55 H (35-45) mmHg ABG pO2 >400 H 172 H (83-108) mmHg ABG HCO3 29 H 28 H (21-25) mmol/L ABG Total CO2 31 H 30 H (19-24) mmol/L ABG O2 Saturation 100.0 H 99.5 H (94-97) % Potassium (3.5-5.1) mmol/L Carbon Dioxide (22-30) mmol/L Creatinine (0.66-1.25) mg/dL Glucose (74-99) mg/dL POC Glucose (mg/dL) 124 H (75-99) mg/dL Magnesium (1.6-2.3) mg/dL Total Creatine Kinase (55-170) U/L CK-MB (CK-2) (0.0-2.4) ng/mL Influenza Type A RNA (Not Detectd) Microbiology - Last 24 Hours (Table) 03/31/18 07:12 Sputum Culture - Preliminary Sputum Thrombosis Risk Factor Assmnt - Choose All That Apply Any of the Below Risk Factors Present?: Yes Each Factor Represents 1 point: Age 41-60 years Other Risk Factors: Yes Each Risk Factor Represents 2 Points: Patient confined to bed Other congenital or acquired thrombophilia - If yes, enter type in comment: No Thrombosis Risk Factor Assessment Total Risk Factor Score: 3 Thrombosis Risk Factor Assessment Level: Moderate Risk Assessment and Plan Assessment: -Acute hypoxemic and hypercapnic respiratory failure needed intubation -Acute influenza infection -Acute severe exacerbation COPD with acute purulent tracheobronchitis -Acute on chronic hypoxic respiratory failure -Ongoing nicotine dependence -Obstructive sleep apnea, wears BiPAP at home Plan: This is a pleasant 57 years old male who presents with severe COPD exacerbation and influenza a. Patient was placed in the critical care unit on admission. Pulmonary team are following the patient, continue with present treatment, steroids, oxygen therapy. Patient was started on Tamiflu. Labs and medication were reviewed.. Continue same treatment. Continue with symptomatic treatment. Resume home medication. Monitor lytes and vitals. DVT and GI prophylaxis. Further recommendations of the clinical course of the patient DVT prophylaxis: Subcutaneous heparin GI Prophylaxis: Pepcid PT/OT: Pending Prognosis is guarded
--- NOTE | 2018-03-31 13:42 | P.CNPUL ---
History of Present Illness Consult date: 03/31/18 Reason for consult: dyspnea, COPD History of present illness: A 57-year-old male patient with advanced COPD with an FEV1 of less than 30% of predicted and chronic hypoxic respiratory failure with reduction dependent who also has history of obstructive sleep apnea mechanical CPAP therapy. The patient has an AHI of 23 and the patient has been maintained on CPAP therapy at a pressure of 9 cm of water on outpatient basis. In terms of COPD, the patient has been receiving Dulera, theophylline and maintenance 5 mg of prednisone a daily basis. The patient had 2 hospitalizations back in 2018 in the last hospitalization was in January 2018 for an acute on top of chronic hypoxic respiratory failure and COPD exacerbation. The patient was treated and the patient was discharged home. Over the past 24 hours, the patient became acutely ill. His had a rest or checked infection subsequently he got sick and within 24 hours he started having fever and chills and cough and congestion and shortness of breath and for that reason he was brought into the hospital. On route, the patient was placed on BiPAP. The same was done in the emergency department. He checked positive for influenza a and he was started on Tamiflu in addition to bronchodilators and steroids. He continued to be on a BiPAP and later on he failed BiPAP and he had to be intubated and placed on a mechanical ventilator. This morning, the patient is an assist-control mode of ventilation. His tidal volumes of 400 with an FiO2 of 50% with a PEEP of 5 and respiratory rate of 20. His peak air pressure is around and static air pressure of 22. There has been improvement in his acid-base status. The morning blood gas showed a pH of 7.32 with a pCO2 of 55 and pO2 of 172 and this was on FiO2 of 50%. Chest x-rays consistent with COPD and there is no evidence of any pulmonary infiltration or pneumonia. The patient had some diminished urine output and the patient is currently on IV fluids at the rate of 75 mL an hour. No leukocytosis. Renal function is stable. Currently sedated with Diprivan and, comfortable. Hemodynamically stable on no pressors. No reported chest pain. No reported swelling in lower extremities. Family is at the bedside. Review of Systems ROS unobtainable: due to endotracheal tube Past Medical History Past Medical History: COPD, Sleep Apnea/CPAP/BIPAP Additional Past Medical History / Comment(s): COPD, previous hospitalization for COPD exacerbations, chronic hypoxic respiratory failure, kidney stones, CPAP /oxygen at night, potential Diabetes (Possibly steroids involved), chronic anxiety History of Any Multi-Drug Resistant Organisms: None Reported Past Surgical History: Hernia Repair Additional Past Surgical History / Comment(s): . Past Anesthesia/Blood Transfusion Reactions: No Reported Reaction Additional Past Anesthesia/Blood Transfusion Reaction / Comment(s): no blood transfusions Past Psychological History: Anxiety Additional Psychological History / Comment(s): anxiety with shortness of breath. Smoking Status: Current some day smoker Past Alcohol Use History: Occasional Additional Past Alcohol Use History / Comment(s): started smoking at age 16 used to smoke 1.5 ppd, "very infrequent now" Past Drug Use History: Marijuana - Past Family History Father Family Medical History: COPD Additional Family Medical History / Comment(s): of lung cancer Mother Family Medical History: Asthma Medications and Allergies Home Medications Medication Instructions Recorded Confirmed Type Fexofenadine HCl [Alaina Allergy] 180 mg PO DAILY 03/21/15 03/30/18 History Mometasone/Formoterol [Dulera 200 2 puff INHALATION RT-BID 03/21/15 03/30/18 History Mcg/5 Mcg Inhaler] Albuterol Sulfate [Proair Hfa] 2 puff INHALATION RT-QID PRN 07/28/16 03/30/18 History Alendronate Sodium [Fosamax] 70 mg PO DE LA CRUZ 07/28/16 03/30/18 History Theophylline Anhydrous [Uniphyl] 200 mg PO BID 12/20/16 03/30/18 History predniSONE 5 mg PO DAILY #0 12/23/16 03/30/18 Rx Ipratropium-Albuterol Nebulize 3 ml INHALATION RT-QID PRN 01/04/18 03/30/18 History [Duoneb 0.5 mg-3 mg/3 ml Soln] Azithromycin 250 mg PO Q48H 03/30/18 03/30/18 History Allergies Allergy/AdvReac Type Severity Reaction Status Date / Time No Known Allergies Allergy Verified 03/30/18 17:57 Physical Exam Vitals: Vital Signs Temp Pulse Resp BP BP Pulse Ox 03/31/18 11:39 98 03/31/18 11:26 97 03/31/18 10:00 93 20 95/70 97 03/31/18 09:30 90 20 101/73 97 03/31/18 09:00 89 20 88/65 97 03/31/18 08:37 95 03/31/18 08:30 91 15 103/82 97 03/31/18 08:25 90 03/31/18 08:00 97.7 F 95 38 H 87/73 97 03/31/18 07:30 93 21 106/76 98 03/31/18 07:00 96 16 105/77 98 03/31/18 06:30 105 H 37 H 119/94 93 L 03/31/18 06:00 102 H 31 H 149/104 96 03/31/18 05:30 105 H 31 H 149/104 96 03/31/18 05:16 104 H 03/31/18 05:02 105 H 03/31/18 05:00 108 H 26 H 162/105 95 03/31/18 04:30 111 H 35 H 162/105 95 03/31/18 04:00 99.2 F 118 H 29 H 150/98 95 03/31/18 03:30 99 22 150/98 98 03/31/18 03:14 97 03/31/18 03:00 111 H 28 H 138/85 93 L 03/31/18 02:30 97 26 H 138/85 97 03/31/18 02:00 100 29 H 146/80 97 03/31/18 01:30 111 H 28 H 146/80 92 L 03/31/18 01:00 101 H 25 H 127/90 95 03/31/18 00:30 28 H 127/90 95 03/31/18 00:02 102 H 32 H 96 03/31/18 00:00 98.8 F 101 H 24 127/90 96 03/30/18 23:30 101 H 22 96 03/30/18 23:00 98 28 H 128/85 98 03/30/18 22:00 105 H 19 130/97 95 03/30/18 21:00 111 H 20 145/101 97 03/30/18 20:31 116 H 03/30/18 20:22 117 H 03/30/18 20:00 124 H 30 H 138/90 99 03/30/18 19:52 96.3 F L 28 H 145/81 97 03/30/18 19:30 128 H 33 H 160/100 100 03/30/18 19:05 130 H 03/30/18 19:00 121 H 30 H 156/102 99 03/30/18 18:54 118 H 03/30/18 18:30 120 H 30 H 164/96 100 03/30/18 18:00 129 H 31 H 154/97 97 03/30/18 17:32 135 H 03/30/18 17:30 133 H 30 H 167/109 96 03/30/18 17:25 137 H 03/30/18 17:20 135 H 44 H 167/109 99 03/30/18 17:19 130 H 32 H 167/109 96 Intake and Output 03/30/18 03/31/18 03/31/18 22:59 06:59 14:59 Intake Total 150 600 336.005 Output Total 0 800 295 Balance 150 -200 41.005 Intake: IV 150 600 300 Sodium Chloride 0.9% 1, 150 600 300 000 ml @ 75 mls/hr IV . [id number] [facility] Rx#:[id number] Intake, IV Titration 36.005 Amount Propofol 1,000 mg In 36.005 Empty Bag 1 bag @ Titrate IV .Q0M [facility] Rx#: [id number] Output: Urine 0 800 295 Other: Weight 65.9 kg 69.2 kg The patient is calm and comfortable intubated on mechanical ventilator sedated with Diprivan. The patient is synchronous with the mechanical ventilator. No obvious signs of any respiratory distress at this point in time Head exam was generally normal. There was no scleral icterus or corneal arcus. Mucous membranes were moist. Neck was supple and without jugular venous distension, thyromegaly, or carotid bruits. Carotids were easily palpable bilaterally. There was no adenopathy. Orogastric and orotracheal tube are both in place. Lungs sounds are diminished bilaterally along with some few scattered expiratory wheezes heard throughout the lung joseph and there is pronation of expiratory phase of breathing. Cardiac exam revealed the PMI to be normally situated and sized. The rhythm was regular and no extrasystoles were noted during several minutes of auscultation. The first and second heart sounds were normal and physiologic splitting of the second heart sound was noted. There were no murmurs, rubs, clicks, or gallops. Abdominal exam revealed normal bowel sounds. The abdomen was soft, non-tender, and without masses, organomegaly, or appreciable enlargement of the abdominal aorta. Examination of the extremities revealed easily palpable radial, femoral and pedal pulses. There was no cyanosis, clubbing or edema. Examination of the skin revealed no evidence of significant rashes, suspicious appearing nevi or other concerning lesions. Neurologically the patient is sedated yet responsive to painful stimulation. Results - Laboratory Findings CBC and BMP: 03/31/18 05:01 03/31/18 05:01 ABG ABG pH 7.32 (7.35-7.45) L 03/31/18 09:48 ABG pCO2 55 mmHg (35-45) H 03/31/18 09:48 ABG pO2 172 mmHg (83-108) H 03/31/18 09:48 ABG O2 Saturation 99.5 % (94-97) H 03/31/18 09:48 PT/INR, D-dimer PT 10.9 sec (9.0-12.0) 03/30/18 17:29 INR 1.0 (<1.2) 03/30/18 17:29 Abnormal lab findings: Abnormal Labs 03/30/18 03/30/18 03/30/18 17:29 17:29 17:29 Lymphocytes # 0.5 L ABG pH ABG pCO2 ABG pO2 ABG HCO3 ABG Total CO2 ABG O2 Saturation Potassium Carbon Dioxide Creatinine 0.61 L Glucose 127 H POC Glucose (mg/dL) Magnesium Total Creatine Kinase 253 H CK-MB (CK-2) 7.8 H Influenza Type A RNA 03/30/18 03/30/18 03/31/18 17:58 20:59 00:28 Lymphocytes # ABG pH ABG pCO2 ABG pO2 ABG HCO3 ABG Total CO2 ABG O2 Saturation Potassium Carbon Dioxide Creatinine Glucose POC Glucose (mg/dL) 148 H 127 H Magnesium Total Creatine Kinase CK-MB (CK-2) Influenza Type A RNA Detected H 03/31/18 03/31/18 03/31/18 05:01 05:01 05:49 Lymphocytes # 0.3 L ABG pH 7.29 L ABG pCO2 64 H ABG pO2 ABG HCO3 30 H ABG Total CO2 32 H ABG O2 Saturation 97.1 H Potassium 5.2 H Carbon Dioxide 31 H Creatinine 0.58 L Glucose 132 H POC Glucose (mg/dL) Magnesium 2.5 H Total Creatine Kinase CK-MB (CK-2) Influenza Type A RNA 03/31/18 03/31/18 03/31/18 05:53 08:14 09:48 Lymphocytes # ABG pH 7.28 L 7.32 L ABG pCO2 61 H 55 H ABG pO2 >400 H 172 H ABG HCO3 29 H 28 H ABG Total CO2 31 H 30 H ABG O2 Saturation 100.0 H 99.5 H Potassium Carbon Dioxide Creatinine Glucose POC Glucose (mg/dL) 124 H Magnesium Total Creatine Kinase CK-MB (CK-2) Influenza Type A RNA 03/31/18 11:43 Lymphocytes # ABG pH ABG pCO2 ABG pO2 ABG HCO3 ABG Total CO2 ABG O2 Saturation Potassium Carbon Dioxide Creatinine Glucose POC Glucose (mg/dL) 156 H Magnesium Total Creatine Kinase CK-MB (CK-2) Influenza Type A RNA - Diagnostic Findings Chest x-ray: image reviewed Assessment and Plan Plan: Assessment 1 acute COPD exacerbation secondary to an acute influenza taken bronchitis/ respiratory checked infection. No evidence of pneumonia based on the chest x- ray finding. Nevertheless, the patient's COPD exacerbated related to this viral infection and currently the patient is in respiratory failure and intubated on mechanical ventilator. He was initially given a trial of BiPAP that he failed and currently is intubated. 2 acute on top of chronic hypoxic respiratory failure, secondary to above 3 advanced COPD at baseline with FEV1 of less than 30% of predicted 4 previous hospitalization for COPD exacerbations last one being in January 2018 5 smoker 6 chronic anxiety 7 acute on Chronic hypercapnic respiratory failure secondary to COPD 8 obstructive sleep apnea maintained on CPAP at a pressure of 9 cm of water on outpatient basis Plan We'll keep the patient intubated for now. Continue the same vent setting. Drop the FiO2 gradually to maintain a saturation above 90%. Optimize COPD with a combination of DuoNeb nebulized she was around the clock, Perforomist and Pulmicort neb last treatment twice a day, IV Solu-Medrol, Tamiflu, droplet isolation, empiric antibiotic coverage with Levaquin, give the patient stated with Diprivan. Initiate tube feeds. DVT and GI prophylaxis. Condition is obvious significant. This may be potentially difficult wean nontender the patient has advanced COPD. We'll check mainly when he parameters as of tomorrow and decided the patient is candidate for further weaning and decided accordingly. Family has been updated on his condition. We'll continue to follow.
[2018-03-31] MEDS ORDERED: CISATRACURIUM 2 MG/ML 5 ML VIAL IV ONE (18:37)
--- NOTE | 2018-03-31 19:21 | XR ---
EXAMINATION TYPE: XR chest 1V portable DATE OF EXAM: 03/31/2018 COMPARISON: Today HISTORY: Central line placement TECHNIQUE: Single frontal view of the chest is obtained. FINDINGS: The endotracheal tube is approximately 7 cm from the hilda. There is nasogastric tube. Th ere is left central venous catheter with tip in the superior vena cava. No pneumothorax. There is no heart failure. Lungs are clear of infiltrate. There is no sign of pleural effusion or pneumothorax. IMPRESSION: Central venous catheter appears in good position. No cardiopulmonary disease.
[2018-03-31] MEDS: BUDESONIDE 1 MG/2 ML NEBU INHALATION SCH (19:45)
[2018-03-31] MEDS: FORMOTEROL FUMARATE 20 MCG/2 ML NEBU INHALATION SCH (19:45)
[2018-03-31] MEDS: LORazepam 2 MG/ML INJ IV PRN (20:33)
[2018-03-31 23:53] LABS: Glucose,Whole Blood 175 mg/dL (75-99)
[2018-04-01] MEDS: PROPOFOL 1,000 MG in EMPTY BAG 1 BAG IV SCH ×6 (00:35→20:59)
[2018-04-01] MEDS: methylPREDNISolone SOD SUCCI 125 MG/2 ML VIAL IV SCH ×5 (00:39→23:55)
[2018-04-01] MEDS: HEPARIN SODIUM,PORCINE 5,000 UNIT/ML 1 ML VIAL SQ SCH ×4 (00:40→23:55)
[2018-04-01 03:48] LABS: ABG HCO3 28 mmol/L (21-25); ABG PCO2 50 mmHg (35-45); ABG PH 7.35 (7.35-7.45); ABG PO2 126 mmHg (83-108); ABG TCO2 29 mmol/L (19-24)
[2018-04-01 05:34] LABS: Basophils % (A) 0 %; Eosinophils % (A) 0 %; HCT 38.2 % (39.0-53.0); HGB 12.3 gm/dL (13.0-17.5); Lymphocytes # (A) 0.2 k/uL (1.0-4.8); Lymphocytes % (A) 3 %; MCH 31.6 pg (25.0-35.0); MCHC 32.2 g/dL (31.0-37.0); MCV 98.2 fL (80.0-100.0); Mean Platelet Volume 8.5; Monocytes # (A) 0.2 k/uL (0-1.0); Monocytes % (A) 2 %; Neutrophils % (A) 94 %; Platelet Count 161 k/uL (150-450); RBC 3.89 m/uL (4.30-5.90); RDW 13.7 % (11.5-15.5); WBC 7.4 k/uL (3.8-10.6)
[2018-04-01 05:45] LABS: Anion Gap 4 mmol/L; Blood Urea Nitrogen 27 mg/dL (9-20); Calcium 7.7 mg/dL (8.4-10.2); Carbon Dioxide 27 mmol/L (22-30); Chloride 106 mmol/L (98-107); Glucose 193 mg/dL (74-99); Magnesium 2.7 mg/dL (1.6-2.3); Phosphorus 2.5 mg/dL (2.5-4.5); Potassium 4.1 mmol/L (3.5-5.1); Sodium 137 mmol/L (137-145)
[2018-04-01] MEDS: OSELTAMIVIR 75 MG CAP PO SCH ×2 (05:50→17:43)
[2018-04-01 06:08] LABS: Glucose,Whole Blood 220 mg/dL (75-99)
[2018-04-01] MEDS: INSULIN ASPART (NovoLOG) 100 UNIT/ML VIAL SQ SCH ×5 (06:19→20:56)
[2018-04-01] MEDS: IPRATROPIUM-ALBUTEROL 3 ML NEB INHALATION SCH ×4 (07:14→18:33)
[2018-04-01] MEDS: FORMOTEROL FUMARATE 20 MCG/2 ML NEBU INHALATION SCH ×2 (07:14→18:34)
[2018-04-01] MEDS: BUDESONIDE 1 MG/2 ML NEBU INHALATION SCH ×2 (07:14→18:34)
--- NOTE | 2018-04-01 07:45 | PCN ---
PROCEDURE NOTE ARTERIAL LINE PLACEMENT: INDICATIONS: Hemodynamic monitoring. A time-out was completed verifying correct patient, procedure, site, positioning, and implant(s) or special equipment if applicable. Parth's test was performed to ensure adequate perfusion. The patient's right wrist was prepped and draped in sterile fashion. 1% Lidocaine was used to anesthetize the area. An 18G Arrow arterial line was introduced into the radial/femoral artery. The catheter was threaded over the guide wire and the needle was removed with appropriate pulsatile blood return. Blood loss was minimal. The catheter was then sutured in place to the skin and a sterile dressing applied. Perfusion to the extremity distal to the point of catheter insertion was checked and found to be adequate. This was a right radial arterial line placement. The line was placed without any immediate complications, the patient tolerated the procedure well. Waveform was noted, line was flushed, sutured in place, sterile dressing was applied by the nursing staff. MMODL / IJN: [id number] /
--- NOTE | 2018-04-01 08:32 | XR ---
EXAMINATION TYPE: XR chest 1V portable DATE OF EXAM: 04/01/2018 COMPARISON: 03/31/2018 HISTORY: Central line placement TECHNIQUE: Single frontal view of the chest is obtained. FINDINGS: The endotracheal tube is approximately 7 cm from the hilda. There is nasogastric tube. Th ere is left central venous catheter with tip in the superior vena cava. No pneumothorax. There is no heart failure. Lungs are clear of infiltrate. There is no sign of pleural effusion or pneumothorax. IMPRESSION: 1. Correlate for COPD.
[2018-04-01] MEDS: LEVOFLOXACIN 500MG-D5W PMX 500 MG in DEXTROSE/WATER 1 100ML.BAG IVPB SCH (09:03)
[2018-04-01] MEDS: CHLORHEXIDINE GLUCONATE 15 ML CUP MUCOUS MEM SCH ×2 (09:04→20:42)
[2018-04-01] MEDS: FAMOTIDINE 20 MG/2 ML VIAL IV SCH ×2 (09:04→20:42)
[2018-04-01 10:32] LABS: Glucose,Whole Blood 174 mg/dL (75-99)
[2018-04-01] MEDS: SODIUM CHLORIDE 0.9% 1,000 ML IV SCH ×2 (10:43→20:43)
--- NOTE | 2018-04-01 13:38 | PCN ---
PROCEDURE NOTE PROCEDURE: Insertion of a central line. SITE OF INSERTION: Left subclavian vein. PREOPERATIVE DIAGNOSIS: Acute respiratory failure. POSTOPERATIVE DIAGNOSIS: Acute respiratory failure. Indications: Hemodynamic monitoring. A time-out was completed verifying correct patient, procedure, site, positioning, and implant(s) or special equipment if applicable. Parth's test was performed to ensure adequate perfusion. The patient's left neck was prepped and draped in sterile fashion. 1% Lidocaine was used to anesthetize the area. An 18G Arrow arterial line was introduced into the subclavian vein. The catheter was threaded over the guide wire and the needle was removed with appropriate pulsatile blood return. Blood loss was minimal. The catheter was then sutured in place to the skin and a sterile dressing applied. Perfusion to the extremity distal to the point of catheter insertion was checked and found to be adequate. The patient tolerated the procedure well and there were no complications. MMODL / IJN: [id number] /
[2018-04-01 14:01] LABS: Glucose,Whole Blood 143 mg/dL (75-99)
[2018-04-01] MEDS: LORazepam 2 MG/ML INJ IV PRN (14:51)
--- NOTE | 2018-04-01 15:58 | P.PN ---
Subjective Progress Note Date: 04/01/18 A 57-year-old male patient with advanced COPD with an FEV1 of less than 30% of predicted and chronic hypoxic respiratory failure with reduction dependent who also has history of obstructive sleep apnea mechanical CPAP therapy. The patient has an AHI of 23 and the patient has been maintained on CPAP therapy at a pressure of 9 cm of water on outpatient basis. In terms of COPD, the patient has been receiving Dulera, theophylline and maintenance 5 mg of prednisone a daily basis. The patient had 2 hospitalizations back in 2018 in the last hospitalization was in January 2018 for an acute on top of chronic hypoxic respiratory failure and COPD exacerbation. The patient was treated and the patient was discharged home. Over the past 24 hours, the patient became acutely ill. His had a rest or checked infection subsequently he got sick and within 24 hours he started having fever and chills and cough and congestion and shortness of breath and for that reason he was brought into the hospital. On route, the patient was placed on BiPAP. The same was done in the emergency department. He checked positive for influenza a and he was started on Tamiflu in addition to bronchodilators and steroids. He continued to be on a BiPAP and later on he failed BiPAP and he had to be intubated and placed on a mechanical ventilator. This morning, the patient is an assist-control mode of ventilation. His tidal volumes of 400 with an FiO2 of 50% with a PEEP of 5 and respiratory rate of 20. His peak air pressure is around and static air pressure of 22. There has been improvement in his acid-base status. The morning blood gas showed a pH of 7.32 with a pCO2 of 55 and pO2 of 172 and this was on FiO2 of 50%. Chest x-rays consistent with COPD and there is no evidence of any pulmonary infiltration or pneumonia. The patient had some diminished urine output and the patient is currently on IV fluids at the rate of 75 mL an hour. No leukocytosis. Renal function is stable. Currently sedated with Diprivan and, comfortable. Hemodynamically stable on no pressors. No reported chest pain. No reported swelling in lower extremities. Family is at the bedside. On today's evaluation of 04/01/2018 I'm seeing this patient for a follow-up. The patient remains sedated, comfortable mechanical ventilator. The patient is a tidal volume of 450 with an FiO2 of 40% and PEEP of 5 and the rate of 20. Peak airway pressures 31 and static pressures around 21. Chest x-ray showing hyperinflation without any acute pulmonary abnormalities or infiltrates. The patient is bronchospastic and wheezy. The patient has no auto PEEP. The patient's blood gases from today showed a pH of 7.35 with a pCO2 of 50 and pO2 of 126. The patient tolerating his tube feeds. The patient is hemodynamically stable. Remains on examination bronchodilators and steroids and antibiotics. The sputum cultures still negative. Blood cultures negative. No pressors. No other significant events overnight. Family is at the bedside. This is going to be a difficult wean knowing that the patient has advanced COPD with a baseline FEV1 of 30% of predicted. The patient also has chronic hypoxic respiratory failure. He is also known to have obstructive sleep apnea. Objective - Vital Signs Vital signs: Vital Signs Temp 98.1 F 04/01/18 00:00 Pulse 96 04/01/18 15:49 Resp 21 04/01/18 15:49 BP 130/83 04/01/18 15:00 Pulse Ox 97 04/01/18 15:00 Intake & Output 03/31/18 04/01/18 04/01/18 18:59 06:59 18:59 Intake Total 791.354 0659.423 1065 Output Total 545 607 835 Balance 391.005 742.423 230 Weight 69.2 kg 69.2 kg Intake: IV 900 900 675 Sodium Chloride 0.9% 1, 900 900 675 000 ml @ 75 mls/hr IV . [id number] [facility] Rx#:[id number] Intake, IV Titration 36.005 139.423 200 Amount Levofloxacin 500Mg-D5w 100 Pmx 500 mg In Dextrose/ Water 1 100ml.bag @ 100 mls/hr IVPB Q24HR [facility] Rx# :[id number] Propofol 1,000 mg In 36.005 139.423 100 Empty Bag 1 bag @ Titrate IV .Q0M [facility] Rx#: [id number] Tube Feeding 220 190 Other 90 Output: Urine 545 607 835 Other: Voiding Method Indwelling Catheter ABP, PAP, CO, CI - Last Documented Arterial Blood Pressure 138/62 - Exam The patient is calm and comfortable intubated on mechanical ventilator sedated with Diprivan. The patient is synchronous with the mechanical ventilator. No obvious signs of any respiratory distress at this point in time Head exam was generally normal. There was no scleral icterus or corneal arcus. Mucous membranes were moist. Neck was supple and without jugular venous distension, thyromegaly, or carotid bruits. Carotids were easily palpable bilaterally. There was no adenopathy. Orogastric and orotracheal tube are both in place. The patient has a left subclavian triple-lumen catheter in place. Lungs sounds are diminished bilaterally along with some few scattered expiratory wheezes heard throughout the lung joseph and there is pronation of expiratory phase of breathing. Cardiac exam revealed the PMI to be normally situated and sized. The rhythm was regular and no extrasystoles were noted during several minutes of auscultation. The first and second heart sounds were normal and physiologic splitting of the second heart sound was noted. There were no murmurs, rubs, clicks, or gallops. Abdominal exam revealed normal bowel sounds. The abdomen was soft, non-tender, and without masses, organomegaly, or appreciable enlargement of the abdominal aorta. Examination of the extremities revealed easily palpable radial, femoral and pedal pulses. There was no cyanosis, clubbing or edema. The patient has an art line in his right upper extremity Examination of the skin revealed no evidence of significant rashes, suspicious appearing nevi or other concerning lesions. Neurologically the patient is sedated yet responsive to painful stimulation. - Labs CBC & Chem 7: 04/01/18 04:40 04/01/18 04:40 Labs: Abnormal Lab Results - Last 24 Hours (Table) 03/31/18 04/01/18 04/01/18 Range/Units 23:48 03:43 04:40 RBC 3.89 L (4.30-5.90) m/uL Hgb 12.3 L (13.0-17.5) gm/dL Hct 38.2 L (39.0-53.0) % Lymphocytes # 0.2 L (1.0-4.8) k/uL ABG pCO2 50 H (35-45) mmHg ABG pO2 126 H (83-108) mmHg ABG HCO3 28 H (21-25) mmol/L ABG Total CO2 29 H (19-24) mmol/L ABG O2 Saturation 99.0 H (94-97) % BUN (9-20) mg/dL Glucose (74-99) mg/dL POC Glucose (mg/dL) 175 H (75-99) mg/dL Calcium (8.4-10.2) mg/dL Magnesium (1.6-2.3) mg/dL 04/01/18 04/01/18 04/01/18 Range/Units 04:40 06:06 10:30 RBC (4.30-5.90) m/uL Hgb (13.0-17.5) gm/dL Hct (39.0-53.0) % Lymphocytes # (1.0-4.8) k/uL ABG pCO2 (35-45) mmHg ABG pO2 (83-108) mmHg ABG HCO3 (21-25) mmol/L ABG Total CO2 (19-24) mmol/L ABG O2 Saturation (94-97) % BUN 27 H (9-20) mg/dL Glucose 193 H (74-99) mg/dL POC Glucose (mg/dL) 220 H 174 H (75-99) mg/dL Calcium 7.7 L (8.4-10.2) mg/dL Magnesium 2.7 H (1.6-2.3) mg/dL 04/01/18 Range/Units 13:59 RBC (4.30-5.90) m/uL Hgb (13.0-17.5) gm/dL Hct (39.0-53.0) % Lymphocytes # (1.0-4.8) k/uL ABG pCO2 (35-45) mmHg ABG pO2 (83-108) mmHg ABG HCO3 (21-25) mmol/L ABG Total CO2 (19-24) mmol/L ABG O2 Saturation (94-97) % BUN (9-20) mg/dL Glucose (74-99) mg/dL POC Glucose (mg/dL) 143 H (75-99) mg/dL Calcium (8.4-10.2) mg/dL Magnesium (1.6-2.3) mg/dL Microbiology - Last 24 Hours (Table) 03/30/18 17:29 Blood Culture - Preliminary Blood No Growth after 24 hours 03/31/18 07:12 Gram Stain - Preliminary Sputum Sputum Culture - Preliminary Assessment and Plan Plan: Assessment 1 acute COPD exacerbation secondary to an acute influenza taken bronchitis/ respiratory checked infection. No evidence of pneumonia based on the chest x- ray finding. Nevertheless, the patient's COPD exacerbated related to this viral infection and currently the patient is in respiratory failure and intubated on mechanical ventilator. He was initially given a trial of BiPAP that he failed and currently is intubated. 2 acute on top of chronic hypoxic respiratory failure, secondary to above 3 advanced COPD at baseline with FEV1 of less than 30% of predicted 4 previous hospitalization for COPD exacerbations last one being in January 2018 5 smoker 6 chronic anxiety 7 acute on Chronic hypercapnic respiratory failure secondary to COPD 8 obstructive sleep apnea maintained on CPAP at a pressure of 9 cm of water on outpatient basis Plan On today's evaluation, the patient remains actively bronchospastic and wheezy. Peak air pressure remains elevated. I dropped his tidal volume down to 400. Continue bronchodilators. Continue systemic steroids. Continue antibiotics. Continue tube feeds. Continue supportive care. I had a lengthy discussion with the family. I don't think he is ready to wean yet. I'm going to give her another 24 hours with a current treatment and reevaluate his candidacy for weaning tomorrow. I was given a sedation holiday first thing in the morning and check his weaning parameters and decide if there is going to be any role for weaning. Note that this will be a difficult wean. He may extubated to BiPAP at a later stage. Critically care evaluation was done more than 30 minutes. Time with Patient: Greater than 30
[2018-04-01 17:34] LABS: Glucose,Whole Blood 137 mg/dL (75-99)
--- NOTE | 2018-04-01 18:25 | P.PN ---
Subjective This is a 57-year-old male with a history of severe COPD, nicotine dependence, sleep apnea. who presents with worsening shortness of breath and resp distress, which was going on for 3 days, patient thought that he got some kind of infection of from his . He had myalgias and fever or chills. No chest pain. He needed CPAP during the transport. pt got intubated and he is sedated now , he in the ICU, most of the information was taken from staff and medical records. He came yesterday with respiratory distress with respiratory rate above 30 at times, systolic blood pressure was 120-150s, this morning 95/70. CBC was unremarkable. ABG showing retaining CO2 with acidemia and acidosis. Potassium 5.2, creatinine 0.5. Magnesium 2.5. Chest x-ray, no acute process per Radiologist. EKG shows sinus tachycardia with QTC 422. rate at 133. influenza attesting back positive. 04/01/2018 Patient still remains in the ICU, he is intubated. Vitals are acceptable. CBC and BMP were reviewed with no significant abnormality and sugar is controlled. Culture shows no growth. Chest x-ray: COPD. Patient is been followed up by pulmonary, critical care team Objective - Vital Signs Vital signs: Vital Signs Temp 98.1 F 04/01/18 00:00 Pulse 75 04/01/18 18:00 Resp 20 04/01/18 18:00 BP 110/75 04/01/18 18:00 Pulse Ox 97 04/01/18 18:00 Intake & Output 03/31/18 04/01/18 04/01/18 18:59 06:59 18:59 Intake Total 045.202 8466.423 1540 Output Total 939 682 4676 Balance 391.005 742.423 205 Weight 69.2 kg 69.2 kg Intake: IV 900 900 900 Sodium Chloride 0.9% 1, 900 900 900 000 ml @ 75 mls/hr IV . [id number] [facility] Rx#:[id number] Intake, IV Titration 36.005 139.423 300 Amount Levofloxacin 500Mg-D5w 100 Pmx 500 mg In Dextrose/ Water 1 100ml.bag @ 100 mls/hr IVPB Q24HR [facility] Rx# :[id number] Propofol 1,000 mg In 36.005 139.423 200 Empty Bag 1 bag @ Titrate IV .Q0M [facility] Rx#: [id number] Tube Feeding 220 340 Other 90 Output: Urine 944 512 6140 Other: Voiding Method Indwelling Catheter ABP, PAP, CO, CI - Last Documented Arterial Blood Pressure 110/52 - Labs CBC & Chem 7: 04/01/18 04:40 04/01/18 04:40 Labs: Abnormal Lab Results - Last 24 Hours (Table) 03/31/18 04/01/18 04/01/18 Range/Units 23:48 03:43 04:40 RBC 3.89 L (4.30-5.90) m/uL Hgb 12.3 L (13.0-17.5) gm/dL Hct 38.2 L (39.0-53.0) % Lymphocytes # 0.2 L (1.0-4.8) k/uL ABG pCO2 50 H (35-45) mmHg ABG pO2 126 H (83-108) mmHg ABG HCO3 28 H (21-25) mmol/L ABG Total CO2 29 H (19-24) mmol/L ABG O2 Saturation 99.0 H (94-97) % BUN (9-20) mg/dL Glucose (74-99) mg/dL POC Glucose (mg/dL) 175 H (75-99) mg/dL Calcium (8.4-10.2) mg/dL Magnesium (1.6-2.3) mg/dL 04/01/18 04/01/18 04/01/18 Range/Units 04:40 06:06 10:30 RBC (4.30-5.90) m/uL Hgb (13.0-17.5) gm/dL Hct (39.0-53.0) % Lymphocytes # (1.0-4.8) k/uL ABG pCO2 (35-45) mmHg ABG pO2 (83-108) mmHg ABG HCO3 (21-25) mmol/L ABG Total CO2 (19-24) mmol/L ABG O2 Saturation (94-97) % BUN 27 H (9-20) mg/dL Glucose 193 H (74-99) mg/dL POC Glucose (mg/dL) 220 H 174 H (75-99) mg/dL Calcium 7.7 L (8.4-10.2) mg/dL Magnesium 2.7 H (1.6-2.3) mg/dL 04/01/18 04/01/18 Range/Units 13:59 17:26 RBC (4.30-5.90) m/uL Hgb (13.0-17.5) gm/dL Hct (39.0-53.0) % Lymphocytes # (1.0-4.8) k/uL ABG pCO2 (35-45) mmHg ABG pO2 (83-108) mmHg ABG HCO3 (21-25) mmol/L ABG Total CO2 (19-24) mmol/L ABG O2 Saturation (94-97) % BUN (9-20) mg/dL Glucose (74-99) mg/dL POC Glucose (mg/dL) 143 H 137 H (75-99) mg/dL Calcium (8.4-10.2) mg/dL Magnesium (1.6-2.3) mg/dL Microbiology - Last 24 Hours (Table) 03/30/18 17:29 Blood Culture - Preliminary Blood No Growth after 24 hours 03/31/18 07:12 Gram Stain - Preliminary Sputum Sputum Culture - Preliminary
[2018-04-01 21:00] LABS: Glucose,Whole Blood 164 mg/dL (75-99)
[2018-04-01] MEDS: IPRATROPIUM-ALBUTEROL 3 ML NEB INHALATION PRN (23:21)
[2018-04-02] MEDS: PROPOFOL 1,000 MG in EMPTY BAG 1 BAG IV SCH ×8 (00:28→22:58)
[2018-04-02 00:44] LABS: Glucose,Whole Blood 175 mg/dL (75-99)
[2018-04-02] MEDS: INSULIN ASPART (NovoLOG) 100 UNIT/ML VIAL SQ SCH ×6 (02:05→20:35)
[2018-04-02 02:08] LABS: Glucose,Whole Blood 169 mg/dL (75-99)
[2018-04-02] MEDS: IPRATROPIUM-ALBUTEROL 3 ML NEB INHALATION SCH ×5 (03:18→19:24)
[2018-04-02] MEDS: LORazepam 2 MG/ML INJ IV PRN ×2 (03:29→23:00)
[2018-04-02 04:51] LABS: ABG Base Excess 2.9 mmol/L; ABG HCO3 29 mmol/L (21-25); ABG Oxygen Saturation 96.8 % (94-97); ABG PCO2 53 mmHg (35-45); ABG PH 7.34 (7.35-7.45); ABG PO2 91 mmHg (83-108); ABG TCO2 30 mmol/L (19-24)
[2018-04-02 04:53] LABS: Basophils % (A) 0 %; Eosinophils # (A) 0.1 k/uL (0-0.7); Eosinophils % (A) 1 %; HCT 38.1 % (39.0-53.0); HGB 12.2 gm/dL (13.0-17.5); Lymphocytes # (A) 0.3 k/uL (1.0-4.8); Lymphocytes % (A) 3 %; MCH 31.3 pg (25.0-35.0); MCV 97.9 fL (80.0-100.0); Mean Platelet Volume 8.4; Monocytes # (A) 0.3 k/uL (0-1.0); Monocytes % (A) 3 %; Neutrophils % (A) 93 %; Platelet Count 152 k/uL (150-450); RBC 3.89 m/uL (4.30-5.90); RDW 13.6 % (11.5-15.5); WBC 8.7 k/uL (3.8-10.6)
[2018-04-02 05:05] LABS: Anion Gap 2 mmol/L; Blood Urea Nitrogen 27 mg/dL (9-20); Calcium 7.6 mg/dL (8.4-10.2); Carbon Dioxide 27 mmol/L (22-30); Chloride 111 mmol/L (98-107); Glucose 141 mg/dL (74-99); Magnesium 3.1 mg/dL (1.6-2.3); Phosphorus 2.7 mg/dL (2.5-4.5); Potassium 4.5 mmol/L (3.5-5.1); Sodium 140 mmol/L (137-145)
[2018-04-02] MEDS: methylPREDNISolone SOD SUCCI 125 MG/2 ML VIAL IV SCH ×3 (05:08→18:10)
[2018-04-02] MEDS: OSELTAMIVIR 75 MG CAP PO SCH ×2 (05:09→18:10)
[2018-04-02 05:19] LABS: Glucose,Whole Blood 150 mg/dL (75-99)
[2018-04-02] MEDS: FORMOTEROL FUMARATE 20 MCG/2 ML NEBU INHALATION SCH ×2 (07:12→19:24)
[2018-04-02] MEDS: BUDESONIDE 1 MG/2 ML NEBU INHALATION SCH ×2 (07:12→19:24)
[2018-04-02] MEDS: SODIUM CHLORIDE 0.9% 1,000 ML IV SCH (07:32)
[2018-04-02] MEDS: HEPARIN SODIUM,PORCINE 5,000 UNIT/ML 1 ML VIAL SQ SCH ×2 (08:34→15:55)
[2018-04-02] MEDS: CHLORHEXIDINE GLUCONATE 15 ML CUP MUCOUS MEM SCH ×2 (08:34→20:07)
[2018-04-02] MEDS: FAMOTIDINE 20 MG/2 ML VIAL IV SCH ×2 (08:34→20:08)
[2018-04-02] MEDS: LEVOFLOXACIN 500MG-D5W PMX 500 MG in DEXTROSE/WATER 1 100ML.BAG IVPB SCH (08:35)
--- NOTE | 2018-04-02 09:55 | XR ---
EXAMINATION TYPE: XR chest 1V portable DATE OF EXAM: 04/02/2018 COMPARISON: 04/01/2018 HISTORY: Central line placement TECHNIQUE: Single frontal view of the chest is obtained. FINDINGS: The endotracheal tube is approximately 7 cm from the hilda. There is nasogastric tube. Th ere is left central venous catheter with tip in the superior vena cava. No pneumothorax. There is no heart failure. Lungs are clear of infiltrate. There is no sign of pleural effusion or pneumothorax. IMPRESSION: Correlate for COPD. No definite acute infiltrate.
[2018-04-02] MEDS ORDERED: DEXMEDETOMIDINE/0.9% NACL(PMX) 400 MCG in EMPTY BAG 1 BAG IV SCH (11:00)
[2018-04-02 11:56] LABS: Glucose,Whole Blood 147 mg/dL (75-99)
[2018-04-02 12:17] LABS: Glucose,Whole Blood 139 mg/dL (75-99)
--- NOTE | 2018-04-02 14:18 | P.PN ---
Subjective Progress Note Date: 04/02/18 A 57-year-old male patient with advanced COPD with an FEV1 of less than 30% of predicted and chronic hypoxic respiratory failure with reduction dependent who also has history of obstructive sleep apnea mechanical CPAP therapy. The patient has an AHI of 23 and the patient has been maintained on CPAP therapy at a pressure of 9 cm of water on outpatient basis. In terms of COPD, the patient has been receiving Dulera, theophylline and maintenance 5 mg of prednisone a daily basis. The patient had 2 hospitalizations back in 2018 in the last hospitalization was in January 2018 for an acute on top of chronic hypoxic respiratory failure and COPD exacerbation. The patient was treated and the patient was discharged home. Over the past 24 hours, the patient became acutely ill. His had a rest or checked infection subsequently he got sick and within 24 hours he started having fever and chills and cough and congestion and shortness of breath and for that reason he was brought into the hospital. On route, the patient was placed on BiPAP. The same was done in the emergency department. He checked positive for influenza a and he was started on Tamiflu in addition to bronchodilators and steroids. He continued to be on a BiPAP and later on he failed BiPAP and he had to be intubated and placed on a mechanical ventilator. This morning, the patient is an assist-control mode of ventilation. His tidal volumes of 400 with an FiO2 of 50% with a PEEP of 5 and respiratory rate of 20. His peak air pressure is around and static air pressure of 22. There has been improvement in his acid-base status. The morning blood gas showed a pH of 7.32 with a pCO2 of 55 and pO2 of 172 and this was on FiO2 of 50%. Chest x-rays consistent with COPD and there is no evidence of any pulmonary infiltration or pneumonia. The patient had some diminished urine output and the patient is currently on IV fluids at the rate of 75 mL an hour. No leukocytosis. Renal function is stable. Currently sedated with Diprivan and, comfortable. Hemodynamically stable on no pressors. No reported chest pain. No reported swelling in lower extremities. Family is at the bedside. On today's evaluation of 04/01/2018 I'm seeing this patient for a follow-up. The patient remains sedated, comfortable mechanical ventilator. The patient is a tidal volume of 450 with an FiO2 of 40% and PEEP of 5 and the rate of 20. Peak airway pressures 31 and static pressures around 21. Chest x-ray showing hyperinflation without any acute pulmonary abnormalities or infiltrates. The patient is bronchospastic and wheezy. The patient has no auto PEEP. The patient's blood gases from today showed a pH of 7.35 with a pCO2 of 50 and pO2 of 126. The patient tolerating his tube feeds. The patient is hemodynamically stable. Remains on examination bronchodilators and steroids and antibiotics. The sputum cultures still negative. Blood cultures negative. No pressors. No other significant events overnight. Family is at the bedside. This is going to be a difficult wean knowing that the patient has advanced COPD with a baseline FEV1 of 30% of predicted. The patient also has chronic hypoxic respiratory failure. He is also known to have obstructive sleep apnea. On 04/02/2018 patient is being seen for a follow-up. Remains on a mechanical ventilator. Remains sedated. He was given a sedation holiday today which went very poorly. The patient aroused quite uncomfortable and he was fighting the respirator. He was completely synchronous. He became tachycardic and tachypneic and subsequently his oxygen saturations dropped and he was not getting his volumes. At that point, the sedation holiday was discontinued and the patient was placed back on sedation. He was given also a short spontaneous breathing trial which ended up being a failure. For now, the patient is an assist-control mode at the rate of 20 with tidal volume of 400 and FiO2 of 40% and PEEP of 5. I kept him on Diprivan. I switched him to ABC plus mode with a Itime of 0.9 seconds. His blood gases from earlier this morning showed a pH of 7.34 with a pCO2 of 53 and pO2 of 91. No significant orotracheal secretions. Peak airway pressures still at 30. No auto PEEP. The chest x-ray from today was no significant abnormalities. It correlates with COPD. All of the lines are in place. The patient is otherwise hemodynamically stable. He is receiving his tube feeds. No hemodynamic instability. He is producing adequate amount of urine output. He is afebrile. Family is at the bedside. Obviously this will be a difficult to wean knowing that his baseline FEV1 is around 30% of predicted and he has chronic hypoxic respiratory failure in addition to obstructive sleep apnea. Objective - Vital Signs Vital signs: Vital Signs Temp 98.1 F 04/02/18 12:00 Pulse 85 04/02/18 13:45 Resp 22 04/02/18 13:45 BP 134/87 04/02/18 13:45 Pulse Ox 95 04/02/18 13:45 Intake & Output 04/01/18 04/02/18 04/02/18 18:59 06:59 18:59 Intake Total 1540 2147.821 558.418 Output Total 1335 1045 525 Balance 205 1102.821 33.418 Weight 69.2 kg 69.2 kg Intake: IV 900 975 405 Levofloxacin 500Mg-D5w 100 Pmx 500 mg In Dextrose/ Water 1 100ml.bag @ 100 mls/hr IVPB Q24HR [facility] Rx# :[id number] Sodium Chloride 0.9% 1, 900 975 305 000 ml @ 20 mls/hr IV . Q24H [facility] Rx#:[id number] Intake, IV Titration 300 382.821 153.418 Amount Dexmedetomidine/0.9% NaCl 14.763 (Pmx) 400 mcg In Empty Bag 1 bag @ Titrate IV . Q0M [facility] Rx#:[id number] Levofloxacin 500Mg-D5w 100 Pmx 500 mg In Dextrose/ Water 1 100ml.bag @ 100 mls/hr IVPB Q24HR [facility] Rx# :[id number] Propofol 1,000 mg In 200 382.821 138.655 Empty Bag 1 bag @ Titrate IV .Q0M [facility] Rx#: [id number] Tube Feeding 340 700 Other 90 Output: Urine 1335 1045 525 Other: Voiding Method Indwelling Catheter Indwelling Catheter Indwelling Catheter ABP, PAP, CO, CI - Last Documented Arterial Blood Pressure 146/72 - Exam The patient is calm and comfortable intubated on mechanical ventilator sedated with Diprivan. The patient is synchronous with the mechanical ventilator. No obvious signs of any respiratory distress at this point in time Head exam was generally normal. There was no scleral icterus or corneal arcus. Mucous membranes were moist. Neck was supple and without jugular venous distension, thyromegaly, or carotid bruits. Carotids were easily palpable bilaterally. There was no adenopathy. Orogastric and orotracheal tube are both in place. The patient has a left subclavian triple-lumen catheter in place. Lungs sounds are diminished bilaterally along with some few scattered expiratory wheezes heard throughout the lung joseph and there is pronation of expiratory phase of breathing. Cardiac exam revealed the PMI to be normally situated and sized. The rhythm was regular and no extrasystoles were noted during several minutes of auscultation. The first and second heart sounds were normal and physiologic splitting of the second heart sound was noted. There were no murmurs, rubs, clicks, or gallops. Abdominal exam revealed normal bowel sounds. The abdomen was soft, non-tender, and without masses, organomegaly, or appreciable enlargement of the abdominal aorta. Examination of the extremities revealed easily palpable radial, femoral and pedal pulses. There was no cyanosis, clubbing or edema. The patient has an art line in his right upper extremity Examination of the skin revealed no evidence of significant rashes, suspicious appearing nevi or other concerning lesions. Neurologically the patient is sedated yet responsive to painful stimulation. - Labs CBC & Chem 7: 04/02/18 04:40 04/02/18 04:40 Labs: Abnormal Lab Results - Last 24 Hours (Table) 04/01/18 04/01/18 04/02/18 Range/Units 17:26 20:56 00:25 RBC (4.30-5.90) m/uL Hgb (13.0-17.5) gm/dL Hct (39.0-53.0) % Neutrophils # (1.3-7.7) k/uL Lymphocytes # (1.0-4.8) k/uL ABG pH (7.35-7.45) ABG pCO2 (35-45) mmHg ABG HCO3 (21-25) mmol/L ABG Total CO2 (19-24) mmol/L Chloride (98-107) mmol/L BUN (9-20) mg/dL Creatinine (0.66-1.25) mg/dL Glucose (74-99) mg/dL POC Glucose (mg/dL) 137 H 164 H 175 H (75-99) mg/dL Calcium (8.4-10.2) mg/dL Magnesium (1.6-2.3) mg/dL 04/02/18 04/02/18 04/02/18 Range/Units 02:02 04:40 04:40 RBC 3.89 L (4.30-5.90) m/uL Hgb 12.2 L (13.0-17.5) gm/dL Hct 38.1 L (39.0-53.0) % Neutrophils # 8.0 H (1.3-7.7) k/uL Lymphocytes # 0.3 L (1.0-4.8) k/uL ABG pH (7.35-7.45) ABG pCO2 (35-45) mmHg ABG HCO3 (21-25) mmol/L ABG Total CO2 (19-24) mmol/L Chloride 111 H (98-107) mmol/L BUN 27 H (9-20) mg/dL Creatinine 0.60 L (0.66-1.25) mg/dL Glucose 141 H (74-99) mg/dL POC Glucose (mg/dL) 169 H (75-99) mg/dL Calcium 7.6 L (8.4-10.2) mg/dL Magnesium 3.1 H (1.6-2.3) mg/dL 04/02/18 04/02/18 04/02/18 Range/Units 04:49 05:17 08:09 RBC (4.30-5.90) m/uL Hgb (13.0-17.5) gm/dL Hct (39.0-53.0) % Neutrophils # (1.3-7.7) k/uL Lymphocytes # (1.0-4.8) k/uL ABG pH 7.34 L (7.35-7.45) ABG pCO2 53 H (35-45) mmHg ABG HCO3 29 H (21-25) mmol/L ABG Total CO2 30 H (19-24) mmol/L Chloride (98-107) mmol/L BUN (9-20) mg/dL Creatinine (0.66-1.25) mg/dL Glucose (74-99) mg/dL POC Glucose (mg/dL) 150 H 147 H (75-99) mg/dL Calcium (8.4-10.2) mg/dL Magnesium (1.6-2.3) mg/dL 04/02/18 Range/Units 12:14 RBC (4.30-5.90) m/uL Hgb (13.0-17.5) gm/dL Hct (39.0-53.0) % Neutrophils # (1.3-7.7) k/uL Lymphocytes # (1.0-4.8) k/uL ABG pH (7.35-7.45) ABG pCO2 (35-45) mmHg ABG HCO3 (21-25) mmol/L ABG Total CO2 (19-24) mmol/L Chloride (98-107) mmol/L BUN (9-20) mg/dL Creatinine (0.66-1.25) mg/dL Glucose (74-99) mg/dL POC Glucose (mg/dL) 139 H (75-99) mg/dL Calcium (8.4-10.2) mg/dL Magnesium (1.6-2.3) mg/dL Microbiology - Last 24 Hours (Table) 03/31/18 07:12 Gram Stain - Final Sputum Sputum Culture - Final 03/30/18 17:29 Blood Culture - Preliminary Blood No Growth after 48 hours Assessment and Plan Plan: Assessment 1 acute COPD exacerbation secondary to an acute influenza tracheal bronchitis/ respiratory infection. Patient remains intubated on a mechanical ventilator. He failed initial BiPAP therapy and subsequently had to be intubated. His been on a mechanical ventilator since and he is doing well. Nevertheless, he remains bronchospastic and wheezy and the peak air pressure remains quite elevated. He failed a sedation holiday today. His weaning parameters without poor and he also failed a spontaneous breathing trial. Based on that, the patient was placed back on Diprivan. 2 acute on top of chronic hypoxic respiratory failure, secondary to above 3 advanced COPD at baseline with FEV1 of less than 30% of predicted 4 previous hospitalization for COPD exacerbations last one being in January 2018 5 smoker 6 chronic anxiety 7 acute on Chronic hypercapnic respiratory failure secondary to COPD 8 obstructive sleep apnea maintained on CPAP at a pressure of 9 cm of water on outpatient basis Plan I'm going to try a different sedation regimen for him. I'm going to use Precedex which allow me to wake up this patient probably more comfortable taken away a lot of his anxiety and agitation. For now the patient will be kept on a combination of Precedex in the prevent and subsequently the Diprivan will be gradually weaned off. Meanwhile, I switched this patient to VC plus mode which seems to much more comfortable as the patient is more success with the mechanical ventilator on this current mode. I Tidal volume of 400. Meanwhile, we'll cut down the fluids to KVO. Continue the enteral feeding for nutritional support. Continue bronchodilators. Continue steroids. Continue antibiotics. Very much likely the patient may end up requiring a tracheostomy tube specially of our efforts to wean him failure. Family was made aware of this. We'll continue to follow make further recommendations based on his progress. This is a critically care evaluation was done and 33 minutes. Time with Patient: Greater than 30
[2018-04-02 16:45] LABS: Glucose,Whole Blood 153 mg/dL (75-99)
--- NOTE | 2018-04-02 16:53 | P.PN ---
Subjective Progress Note Date: 04/02/18 This is a 57-year-old male with a history of severe COPD, nicotine dependence, sleep apnea. who presents with worsening shortness of breath and resp distress, which was going on for 3 days, patient thought that he got some kind of infection of from his . He had myalgias and fever or chills. No chest pain. He needed CPAP during the transport. pt got intubated and he is sedated now , he in the ICU, most of the information was taken from staff and medical records. 04/02/2018 patient is being seen for a follow-up. Remains on a mechanical ventilator. Remains sedated. He was given a sedation holiday today which went very poorly. The patient aroused quite uncomfortable and he was fighting the respirator. He was completely synchronous. He became tachycardic and tachypneic and subsequently his oxygen saturations dropped and he was not getting his volumes. At that point, the sedation holiday was discontinued and the patient was placed back on sedation. He was given also a short spontaneous breathing trial which ended up being a failure. For now, the patient is an assist-control mode The chest x-ray from today was no significant abnormalities. It correlates with COPD. All of the lines are in place. The patient is otherwise hemodynamically stable. He is receiving his tube feeds. No hemodynamic instability. He is producing adequate amount of urine output. He is afebrile. Family is at the bedside. Obviously this will be a difficult to wean knowing that his baseline FEV1 is around 30% of predicted and he has chronic hypoxic respiratory failure in addition to obstructive sleep apnea. Objective - Vital Signs Vital signs: Vital Signs Temp 98.1 F 04/02/18 04:00 Pulse 109 H 04/02/18 09:30 Resp 25 H 04/02/18 09:30 BP 128/80 04/02/18 09:30 Pulse Ox 92 L 04/02/18 09:30 Intake & Output 04/01/18 04/02/18 04/02/18 18:59 06:59 18:59 Intake Total 1540 2147.821 380.527 Output Total 1335 1045 380 Balance 205 1102.821 0.527 Weight 69.2 kg Intake: IV 900 975 325 Levofloxacin 500Mg-D5w 100 Pmx 500 mg In Dextrose/ Water 1 100ml.bag @ 100 mls/hr IVPB Q24HR [facility] Rx# :[id number] Sodium Chloride 0.9% 1, 900 975 225 000 ml @ 75 mls/hr IV . [id number] [facility] Rx#:[id number] Intake, IV Titration 300 382.821 55.527 Amount Levofloxacin 500Mg-D5w 100 Pmx 500 mg In Dextrose/ Water 1 100ml.bag @ 100 mls/hr IVPB Q24HR [facility] Rx# :[id number] Propofol 1,000 mg In 200 382.821 55.527 Empty Bag 1 bag @ Titrate IV .Q0M [facility] Rx#: [id number] Tube Feeding 340 700 Other 90 Output: Urine 1335 1045 380 Other: Voiding Method Indwelling Catheter Indwelling Catheter ABP, PAP, CO, CI - Last Documented Arterial Blood Pressure 157/63 - Exam Head exam was generally normal. There was no scleral icterus or corneal arcus. Mucous membranes were moist. Neck was supple and without jugular venous distension, thyromegaly, or carotid bruits. Carotids were easily palpable bilaterally. There was no adenopathy. Orogastric and orotracheal tube are both in place. The patient has a left subclavian triple-lumen catheter in place. Lungs sounds are diminished bilaterally along with some few scattered expiratory wheezes heard throughout the lung joseph and there is pronation of expiratory phase of breathing. Cardiac exam revealed the PMI to be normally situated and sized. The rhythm was regular and no extrasystoles were noted during several minutes of auscultation. The first and second heart sounds were normal and physiologic splitting of the second heart sound was noted. There were no murmurs, rubs, clicks, or gallops. Abdominal exam revealed normal bowel sounds. The abdomen was soft, non-tender, and without masses, organomegaly, or appreciable enlargement of the abdominal aorta. Examination of the extremities revealed easily palpable radial, femoral and pedal pulses. There was no cyanosis, clubbing or edema. The patient has an art line in his right upper extremity Examination of the skin revealed no evidence of significant rashes, suspicious appearing nevi or other concerning lesions. Neurologically the patient is sedated yet responsive to painful stimulation. - Labs CBC & Chem 7: 04/02/18 04:40 04/02/18 04:40 Labs: Abnormal Lab Results - Last 24 Hours (Table) 04/01/18 04/01/18 04/01/18 Range/Units 10:30 13:59 17:26 RBC (4.30-5.90) m/uL Hgb (13.0-17.5) gm/dL Hct (39.0-53.0) % Neutrophils # (1.3-7.7) k/uL Lymphocytes # (1.0-4.8) k/uL ABG pH (7.35-7.45) ABG pCO2 (35-45) mmHg ABG HCO3 (21-25) mmol/L ABG Total CO2 (19-24) mmol/L Chloride (98-107) mmol/L BUN (9-20) mg/dL Creatinine (0.66-1.25) mg/dL Glucose (74-99) mg/dL POC Glucose (mg/dL) 174 H 143 H 137 H (75-99) mg/dL Calcium (8.4-10.2) mg/dL Magnesium (1.6-2.3) mg/dL 04/01/18 04/02/18 04/02/18 Range/Units 20:56 00:25 02:02 RBC (4.30-5.90) m/uL Hgb (13.0-17.5) gm/dL Hct (39.0-53.0) % Neutrophils # (1.3-7.7) k/uL Lymphocytes # (1.0-4.8) k/uL ABG pH (7.35-7.45) ABG pCO2 (35-45) mmHg ABG HCO3 (21-25) mmol/L ABG Total CO2 (19-24) mmol/L Chloride (98-107) mmol/L BUN (9-20) mg/dL Creatinine (0.66-1.25) mg/dL Glucose (74-99) mg/dL POC Glucose (mg/dL) 164 H 175 H 169 H (75-99) mg/dL Calcium (8.4-10.2) mg/dL Magnesium (1.6-2.3) mg/dL 04/02/18 04/02/18 04/02/18 Range/Units 04:40 04:40 04:49 RBC 3.89 L (4.30-5.90) m/uL Hgb 12.2 L (13.0-17.5) gm/dL Hct 38.1 L (39.0-53.0) % Neutrophils # 8.0 H (1.3-7.7) k/uL Lymphocytes # 0.3 L (1.0-4.8) k/uL ABG pH 7.34 L (7.35-7.45) ABG pCO2 53 H (35-45) mmHg ABG HCO3 29 H (21-25) mmol/L ABG Total CO2 30 H (19-24) mmol/L Chloride 111 H (98-107) mmol/L BUN 27 H (9-20) mg/dL Creatinine 0.60 L (0.66-1.25) mg/dL Glucose 141 H (74-99) mg/dL POC Glucose (mg/dL) (75-99) mg/dL Calcium 7.6 L (8.4-10.2) mg/dL Magnesium 3.1 H (1.6-2.3) mg/dL 04/02/18 Range/Units 05:17 RBC (4.30-5.90) m/uL Hgb (13.0-17.5) gm/dL Hct (39.0-53.0) % Neutrophils # (1.3-7.7) k/uL Lymphocytes # (1.0-4.8) k/uL ABG pH (7.35-7.45) ABG pCO2 (35-45) mmHg ABG HCO3 (21-25) mmol/L ABG Total CO2 (19-24) mmol/L Chloride (98-107) mmol/L BUN (9-20) mg/dL Creatinine (0.66-1.25) mg/dL Glucose (74-99) mg/dL POC Glucose (mg/dL) 150 H (75-99) mg/dL Calcium (8.4-10.2) mg/dL Magnesium (1.6-2.3) mg/dL Microbiology - Last 24 Hours (Table) 03/31/18 07:12 Gram Stain - Final Sputum Sputum Culture - Final 03/30/18 17:29 Blood Culture - Preliminary Blood No Growth after 48 hours Assessment and Plan Assessment: 1. Acute COPD exacerbation secondary to an acute influenza tracheobronchitis. - No evidence of pneumonia based on the chest x-ray finding; COPD exacerbated related to this viral infection and currently the patient is in respiratory failure and intubated on mechanical ventilator. - Patient remains on nebulized bronchodilators and steroids and systemic steroids; continue with current IV antibiotics; continue with Tamiflu 75 mg every 12 hours - Nutritional support is to be continued with tube feeding 2. Acute on chronic hypoxic/ hypercapnic respiratory failure, secondary to above 3. Advanced COPD; in exacerbation as above 4. Chronic tobacco dependence 5. Chronic anxiety 6. Obstructive sleep apnea maintained on CPAP at a pressure of 9 cm of water on outpatient basis 7. DVT prophylaxis; heparin 5000 units subcu CODE STATUS; full code Time with Patient: Greater than 30
[2018-04-02] MEDS: clonazePAM 1 MG TAB PO SCH (20:08)
[2018-04-02 20:25] LABS: Glucose,Whole Blood 159 mg/dL (75-99)
[2018-04-02] MEDS: IPRATROPIUM-ALBUTEROL 3 ML NEB INHALATION PRN (23:38)
[2018-04-02 23:59] LABS: Glucose,Whole Blood 146 mg/dL (75-99)
[2018-04-03] MEDS: HEPARIN SODIUM,PORCINE 5,000 UNIT/ML 1 ML VIAL SQ SCH ×4 (01:18→23:41)
[2018-04-03] MEDS: methylPREDNISolone SOD SUCCI 125 MG/2 ML VIAL IV SCH ×5 (01:18→23:27)
[2018-04-03] MEDS: INSULIN ASPART (NovoLOG) 100 UNIT/ML VIAL SQ SCH ×7 (01:21→23:59)
[2018-04-03 01:23] LABS: Glucose,Whole Blood 172 mg/dL (75-99)
[2018-04-03] MEDS: PROPOFOL 1,000 MG in EMPTY BAG 1 BAG IV SCH ×5 (02:03→20:12)
[2018-04-03] MEDS: LORazepam 2 MG/ML INJ IV PRN (03:16)
[2018-04-03] MEDS: SODIUM CHLORIDE 0.9% 1,000 ML IV SCH (03:17)
[2018-04-03] MEDS: IPRATROPIUM-ALBUTEROL 3 ML NEB INHALATION PRN (03:24)
[2018-04-03 04:17] LABS: Glucose,Whole Blood 169 mg/dL (75-99)
[2018-04-03 04:31] LABS: Basophils % (A) 0 %; Eosinophils # (A) 0.1 k/uL (0-0.7); Eosinophils % (A) 1 %; HCT 37.6 % (39.0-53.0); HGB 12.1 gm/dL (13.0-17.5); Lymphocytes # (A) 0.2 k/uL (1.0-4.8); Lymphocytes % (A) 3 %; MCH 31.8 pg (25.0-35.0); MCHC 32.3 g/dL (31.0-37.0); MCV 98.4 fL (80.0-100.0); Mean Platelet Volume 8.3; Monocytes # (A) 0.3 k/uL (0-1.0); Monocytes % (A) 4 %; Neutrophils # (A) 7.5 k/uL (1.3-7.7); Neutrophils % (A) 92 %; Platelet Count 154 k/uL (150-450); RBC 3.82 m/uL (4.30-5.90); RDW 13.9 % (11.5-15.5); WBC 8.2 k/uL (3.8-10.6)
[2018-04-03 04:45] LABS: Anion Gap 1 mmol/L; Blood Urea Nitrogen 30 mg/dL (9-20); Calcium 7.8 mg/dL (8.4-10.2); Carbon Dioxide 32 mmol/L (22-30); Chloride 107 mmol/L (98-107); Glucose 157 mg/dL (74-99); Magnesium 3.1 mg/dL (1.6-2.3); Phosphorus 2.4 mg/dL (2.5-4.5); Sodium 140 mmol/L (137-145)
[2018-04-03 04:51] LABS: ABG Base Excess 8.8 mmol/L; ABG HCO3 34 mmol/L (21-25); ABG Oxygen Saturation 97.7 % (94-97); ABG PCO2 53 mmHg (35-45); ABG PH 7.41 (7.35-7.45); ABG PO2 87 mmHg (83-108); ABG TCO2 35 mmol/L (19-24)
[2018-04-03] MEDS ORDERED: Phosphorus Replacement Protoco 1 EACH MISC MISCELLANE PRN (05:10)
[2018-04-03] MEDS: OSELTAMIVIR 75 MG CAP PO SCH ×2 (05:20→17:40)
[2018-04-03] MEDS ORDERED: POTASSIUM PHOSPHATE 10 MMOL in SODIUM CHLORIDE 0.9% 250 ML IV ONE (05:30)
[2018-04-03 07:30] LABS: Glucose,Whole Blood 158 mg/dL (75-99)
[2018-04-03] MEDS: IPRATROPIUM-ALBUTEROL 3 ML NEB INHALATION SCH ×4 (07:35→19:15)
[2018-04-03] MEDS: BUDESONIDE 1 MG/2 ML NEBU INHALATION SCH ×2 (07:35→19:15)
[2018-04-03] MEDS: FORMOTEROL FUMARATE 20 MCG/2 ML NEBU INHALATION SCH ×2 (07:35→19:15)
--- NOTE | 2018-04-03 07:56 | XR ---
EXAMINATION TYPE: XR chest 1V portable DATE OF EXAM: 04/03/2018 COMPARISON: 04/02/2018 HISTORY: Tube placement TECHNIQUE: Single frontal view of the chest is obtained. FINDINGS: There is no focal air space opacity, pleural effusion, or pneumothorax seen. The cardiac silhouette size is within normal limits. The osseous structures are intact. ET and NG tube stable hyperinflation again noted. Right costophrenic angle not included on exam. Cent ral line stable. IMPRESSION: No acute process.
[2018-04-03] MEDS: FAMOTIDINE 20 MG/2 ML VIAL IV SCH ×2 (08:35→20:38)
[2018-04-03] MEDS: LEVOFLOXACIN 500MG-D5W PMX 500 MG in DEXTROSE/WATER 1 100ML.BAG IVPB SCH (08:35)
[2018-04-03] MEDS: CHLORHEXIDINE GLUCONATE 15 ML CUP MUCOUS MEM SCH ×2 (08:35→20:38)
[2018-04-03] MEDS: clonazePAM 1 MG TAB PO SCH (08:35)
[2018-04-03 11:53] LABS: Glucose,Whole Blood 163 mg/dL (75-99)
[2018-04-03] MEDS ORDERED: LORazepam 2 MG/ML INJ IV PRN (14:20)
[2018-04-03] MEDS ORDERED: LORazepam 2 MG/ML INJ ONE (14:24)
--- NOTE | 2018-04-03 14:28 | P.PN ---
Subjective Progress Note Date: 04/03/18 A 57-year-old male patient with advanced COPD with an FEV1 of less than 30% of predicted and chronic hypoxic respiratory failure with reduction dependent who also has history of obstructive sleep apnea mechanical CPAP therapy. The patient has an AHI of 23 and the patient has been maintained on CPAP therapy at a pressure of 9 cm of water on outpatient basis. In terms of COPD, the patient has been receiving Dulera, theophylline and maintenance 5 mg of prednisone a daily basis. The patient had 2 hospitalizations back in 2018 in the last hospitalization was in January 2018 for an acute on top of chronic hypoxic respiratory failure and COPD exacerbation. The patient was treated and the patient was discharged home. Over the past 24 hours, the patient became acutely ill. His had a rest or checked infection subsequently he got sick and within 24 hours he started having fever and chills and cough and congestion and shortness of breath and for that reason he was brought into the hospital. On route, the patient was placed on BiPAP. The same was done in the emergency department. He checked positive for influenza a and he was started on Tamiflu in addition to bronchodilators and steroids. He continued to be on a BiPAP and later on he failed BiPAP and he had to be intubated and placed on a mechanical ventilator. This morning, the patient is an assist-control mode of ventilation. His tidal volumes of 400 with an FiO2 of 50% with a PEEP of 5 and respiratory rate of 20. His peak air pressure is around and static air pressure of 22. There has been improvement in his acid-base status. The morning blood gas showed a pH of 7.32 with a pCO2 of 55 and pO2 of 172 and this was on FiO2 of 50%. Chest x-rays consistent with COPD and there is no evidence of any pulmonary infiltration or pneumonia. The patient had some diminished urine output and the patient is currently on IV fluids at the rate of 75 mL an hour. No leukocytosis. Renal function is stable. Currently sedated with Diprivan and, comfortable. Hemodynamically stable on no pressors. No reported chest pain. No reported swelling in lower extremities. Family is at the bedside. On today's evaluation of 04/01/2018 I'm seeing this patient for a follow-up. The patient remains sedated, comfortable mechanical ventilator. The patient is a tidal volume of 450 with an FiO2 of 40% and PEEP of 5 and the rate of 20. Peak airway pressures 31 and static pressures around 21. Chest x-ray showing hyperinflation without any acute pulmonary abnormalities or infiltrates. The patient is bronchospastic and wheezy. The patient has no auto PEEP. The patient's blood gases from today showed a pH of 7.35 with a pCO2 of 50 and pO2 of 126. The patient tolerating his tube feeds. The patient is hemodynamically stable. Remains on examination bronchodilators and steroids and antibiotics. The sputum cultures still negative. Blood cultures negative. No pressors. No other significant events overnight. Family is at the bedside. This is going to be a difficult wean knowing that the patient has advanced COPD with a baseline FEV1 of 30% of predicted. The patient also has chronic hypoxic respiratory failure. He is also known to have obstructive sleep apnea. On 04/02/2018 patient is being seen for a follow-up. Remains on a mechanical ventilator. Remains sedated. He was given a sedation holiday today which went very poorly. The patient aroused quite uncomfortable and he was fighting the respirator. He was completely synchronous. He became tachycardic and tachypneic and subsequently his oxygen saturations dropped and he was not getting his volumes. At that point, the sedation holiday was discontinued and the patient was placed back on sedation. He was given also a short spontaneous breathing trial which ended up being a failure. For now, the patient is an assist-control mode at the rate of 20 with tidal volume of 400 and FiO2 of 40% and PEEP of 5. I kept him on Diprivan. I switched him to ABC plus mode with a Itime of 0.9 seconds. His blood gases from earlier this morning showed a pH of 7.34 with a pCO2 of 53 and pO2 of 91. No significant orotracheal secretions. Peak airway pressures still at 30. No auto PEEP. The chest x-ray from today was no significant abnormalities. It correlates with COPD. All of the lines are in place. The patient is otherwise hemodynamically stable. He is receiving his tube feeds. No hemodynamic instability. He is producing adequate amount of urine output. He is afebrile. Family is at the bedside. Obviously this will be a difficult to wean knowing that his baseline FEV1 is around 30% of predicted and he has chronic hypoxic respiratory failure in addition to obstructive sleep apnea. On 04/03/2018 I'm seeing this patient for a follow-up. The patient remains on a mechanical ventilator. Attempts to switch him to Precedex yesterday failed and the patient was unable to hold his anxiety and agitation. For that reason the patient was started on clonazepam 1 mg twice a day and this morning he was gradually went off Diprivan. After dropping the Diprivan dose down to 20 mics per KG per minute, the patient started having increased anxiety, agitation, restlessness, hypertension, tachypnea, tachycardia, asynchronous with a mechanical ventilator. Based on all this, the attempt was aborted and the patient was placed back on sedation. He remains on a VC plus mode of mechanical ventilation. His rate is at 20 with tidal volume 400 and FiO2 of 40 % with a PEEP of 5. Chest x-ray shows no acute abnormalities and blood gases show a pH of 7.41 with a pCO2 50 and pO2 of 87. Rest of the blood work and electrodes are all within normal limits. He is tolerating his tube feeds. He is at goal for the time being. No edema no signs of any fluid overload. No fever or chills. No respiratory secretions. Had a lengthy discussion with the family and this will be a prolonged and slow wean and I've made recommendations for a PEG and trach probably early next week. We'll consult general surgery regarding a PEG and trach insertion. Objective - Vital Signs Vital signs: Vital Signs Temp 98.2 F 04/03/18 11:30 Pulse 93 04/03/18 13:00 Resp 23 04/03/18 13:00 BP 134/87 04/03/18 08:00 Pulse Ox 95 04/03/18 13:00 Intake & Output 04/02/18 04/03/18 04/03/18 18:59 06:59 18:59 Intake Total 3201.516 6448.504 720.000 Output Total 725 995 295 Balance 597.969 396.504 425.000 Weight 71.4 kg 70.6 kg Intake: IV 485 260 220 Levofloxacin 500Mg-D5w 100 100 Pmx 500 mg In Dextrose/ Water 1 100ml.bag @ 100 mls/hr IVPB Q24HR [facility] Rx# :[id number] Sodium Chloride 0.9% 1, 385 260 120 000 ml @ 20 mls/hr IV . Q24H [facility] Rx#:[id number] Intake, IV Titration 287.969 606.504 200.000 Amount Dexmedetomidine/0.9% NaCl 29.800 (Pmx) 400 mcg In Empty Bag 1 bag @ Titrate IV . Q0M [facility] Rx#:[id number] Potassium Phosphate 10 250 mmol In Sodium Chloride 0 .9% 250 ml @ 125 mls/hr IV ONCE ONE Rx#:[id number] Propofol 1,000 mg In 258.169 356.504 200.000 Empty Bag 1 bag @ Titrate IV .Q0M [facility] Rx#: [id number] Tube Feeding 550 435 210 Other 90 90 Output: Urine 725 995 295 Other: Voiding Method Indwelling Catheter Indwelling Catheter Indwelling Catheter ABP, PAP, CO, CI - Last Documented Arterial Blood Pressure 176/73 - Exam The patient is calm and comfortable intubated on mechanical ventilator sedated with Diprivan. The patient is synchronous with the mechanical ventilator. No obvious signs of any respiratory distress at this point in time Head exam was generally normal. There was no scleral icterus or corneal arcus. Mucous membranes were moist. Neck was supple and without jugular venous distension, thyromegaly, or carotid bruits. Carotids were easily palpable bilaterally. There was no adenopathy. Orogastric and orotracheal tube are both in place. The patient has a left subclavian triple-lumen catheter in place. Lungs sounds are diminished bilaterally along with some few scattered expiratory wheezes heard throughout the lung joseph and there is pronation of expiratory phase of breathing. Cardiac exam revealed the PMI to be normally situated and sized. The rhythm was regular and no extrasystoles were noted during several minutes of auscultation. The first and second heart sounds were normal and physiologic splitting of the second heart sound was noted. There were no murmurs, rubs, clicks, or gallops. Abdominal exam revealed normal bowel sounds. The abdomen was soft, non-tender, and without masses, organomegaly, or appreciable enlargement of the abdominal aorta. Examination of the extremities revealed easily palpable radial, femoral and pedal pulses. There was no cyanosis, clubbing or edema. The patient has an art line in his right upper extremity Examination of the skin revealed no evidence of significant rashes, suspicious appearing nevi or other concerning lesions. Neurologically the patient is sedated yet responsive to painful stimulation. - Labs CBC & Chem 7: 04/03/18 04:20 04/03/18 04:20 Labs: Abnormal Lab Results - Last 24 Hours (Table) 04/02/18 04/02/18 04/02/18 Range/Units 16:34 20:25 23:57 RBC (4.30-5.90) m/uL Hgb (13.0-17.5) gm/dL Hct (39.0-53.0) % Lymphocytes # (1.0-4.8) k/uL ABG pCO2 (35-45) mmHg ABG HCO3 (21-25) mmol/L ABG Total CO2 (19-24) mmol/L ABG O2 Saturation (94-97) % Carbon Dioxide (22-30) mmol/L BUN (9-20) mg/dL Creatinine (0.66-1.25) mg/dL Glucose (74-99) mg/dL POC Glucose (mg/dL) 153 H 159 H 146 H (75-99) mg/dL Calcium (8.4-10.2) mg/dL Phosphorus (2.5-4.5) mg/dL Magnesium (1.6-2.3) mg/dL 04/03/18 04/03/18 04/03/18 Range/Units 01:21 04:16 04:20 RBC 3.82 L (4.30-5.90) m/uL Hgb 12.1 L (13.0-17.5) gm/dL Hct 37.6 L (39.0-53.0) % Lymphocytes # 0.2 L (1.0-4.8) k/uL ABG pCO2 (35-45) mmHg ABG HCO3 (21-25) mmol/L ABG Total CO2 (19-24) mmol/L ABG O2 Saturation (94-97) % Carbon Dioxide (22-30) mmol/L BUN (9-20) mg/dL Creatinine (0.66-1.25) mg/dL Glucose (74-99) mg/dL POC Glucose (mg/dL) 172 H 169 H (75-99) mg/dL Calcium (8.4-10.2) mg/dL Phosphorus (2.5-4.5) mg/dL Magnesium (1.6-2.3) mg/dL 04/03/18 04/03/18 04/03/18 Range/Units 04:20 04:49 07:28 RBC (4.30-5.90) m/uL Hgb (13.0-17.5) gm/dL Hct (39.0-53.0) % Lymphocytes # (1.0-4.8) k/uL ABG pCO2 53 H (35-45) mmHg ABG HCO3 34 H (21-25) mmol/L ABG Total CO2 35 H (19-24) mmol/L ABG O2 Saturation 97.7 H (94-97) % Carbon Dioxide 32 H (22-30) mmol/L BUN 30 H (9-20) mg/dL Creatinine 0.55 L (0.66-1.25) mg/dL Glucose 157 H (74-99) mg/dL POC Glucose (mg/dL) 158 H (75-99) mg/dL Calcium 7.8 L (8.4-10.2) mg/dL Phosphorus 2.4 L (2.5-4.5) mg/dL Magnesium 3.1 H (1.6-2.3) mg/dL 04/03/18 Range/Units 11:52 RBC (4.30-5.90) m/uL Hgb (13.0-17.5) gm/dL Hct (39.0-53.0) % Lymphocytes # (1.0-4.8) k/uL ABG pCO2 (35-45) mmHg ABG HCO3 (21-25) mmol/L ABG Total CO2 (19-24) mmol/L ABG O2 Saturation (94-97) % Carbon Dioxide (22-30) mmol/L BUN (9-20) mg/dL Creatinine (0.66-1.25) mg/dL Glucose (74-99) mg/dL POC Glucose (mg/dL) 163 H (75-99) mg/dL Calcium (8.4-10.2) mg/dL Phosphorus (2.5-4.5) mg/dL Magnesium (1.6-2.3) mg/dL Microbiology - Last 24 Hours (Table) 03/30/18 17:29 Blood Culture - Preliminary Blood No Growth after 72 hours 03/31/18 07:12 Gram Stain - Final Sputum Sputum Culture - Final Assessment and Plan Plan: Assessment 1 acute COPD exacerbation secondary to an acute influenza tracheal bronchitis/ respiratory infection. Patient remains intubated on a mechanical ventilator. He failed initial BiPAP therapy and subsequently had to be intubated. His been on a mechanical ventilator since. Unable to wean this patient off sedation. He is not tolerating weaning trials. He gets very anxious and restless and agitated and asynchronous with the mechanical ventilator in addition to that the patient also has autonomic response. This could be potentially related to excessive and I have an anxiety force the patient was given clonazepam. There may be also a component of respiratory failure contributing to his inability to come off sedation. The patient will need a PEG and trach. 2 acute on top of chronic hypoxic respiratory failure, secondary to above 3 advanced COPD at baseline with FEV1 of less than 30% of predicted 4 previous hospitalization for COPD exacerbations last one being in January 2018 5 smoker 6 chronic anxiety 7 acute on Chronic hypercapnic respiratory failure secondary to COPD 8 obstructive sleep apnea maintained on CPAP at a pressure of 9 cm of water on outpatient basis 9 enteral feeding for nutritional support Plan Dropped IV fluids to KVO. Continue enteral feeding. Continue bronchodilators. Continue systemic steroids. Keep the patient on Diprivan. Continue clonazepam. Keep him sedated for today. We'll go with another sedation holiday in the morning. If fails, the patient will need a PEG and trach and this will be done hopefully by Thursday. We'll consult general surgery for this matter. The family understands situation. I met the and the sister and they both seem to be understanding and aware of the complicated nature of this problem. The patient will not be able to wean successfully and the PEG and trach should help us in the weaning process. There is a critically care evaluation that was done more than 30 minutes.
[2018-04-03] MEDS: MIDAZOLAM HCL 50 MG in SODIUM CHLORIDE 0.9% 40 ML IV SCH ×2 (15:21→22:32)
[2018-04-03 17:27] LABS: Glucose,Whole Blood 155 mg/dL (75-99)
[2018-04-03 20:43] LABS: Glucose,Whole Blood 169 mg/dL (75-99)
--- NOTE | 2018-04-03 22:28 | P.PN ---
Subjective Progress Note Date: 04/03/18 This is a 57-year-old male with a history of severe COPD, nicotine dependence, sleep apnea. who presents with worsening shortness of breath and resp distress, which was going on for 3 days, patient thought that he got some kind of infection of from his . He had myalgias and fever or chills. No chest pain. He needed CPAP during the transport. pt got intubated and he is sedated now , he in the ICU, most of the information was taken from staff and medical records. 04/02/2018 patient is being seen for a follow-up. Remains on a mechanical ventilator. Remains sedated. He was given a sedation holiday today which went very poorly. The patient aroused quite uncomfortable and he was fighting the respirator. He was completely synchronous. He became tachycardic and tachypneic and subsequently his oxygen saturations dropped and he was not getting his volumes. At that point, the sedation holiday was discontinued and the patient was placed back on sedation. He was given also a short spontaneous breathing trial which ended up being a failure. For now, the patient is an assist-control mode The chest x-ray from today was no significant abnormalities. It correlates with COPD. All of the lines are in place. The patient is otherwise hemodynamically stable. He is receiving his tube feeds. No hemodynamic instability. He is producing adequate amount of urine output. He is afebrile. Family is at the bedside. Obviously this will be a difficult to wean knowing that his baseline FEV1 is around 30% of predicted and he has chronic hypoxic respiratory failure in addition to obstructive sleep apnea. 04/03/2018 patient seen for a follow-up. The patient remains on a mechanical ventilator. Attempts to switch him to Precedex yesterday failed and the patient was unable to hold his anxiety and agitation. For that reason the patient was started on clonazepam 1 mg twice a day and this morning he was gradually went off Diprivan. After dropping the Diprivan dose down to 20 mics per KG per minute, the patient started having increased anxiety, agitation, restlessness, hypertension, tachypnea, tachycardia, asynchronous with a mechanical ventilator. Based on all this, the attempt was aborted and the patient was placed back on sedation. Chest x-ray shows no acute abnormalities and blood gases show a pH of 7.41 with a pCO2 50 and pO2 of 87. Rest of the blood work and electrodes are all within normal limits. He is tolerating his tube feeds. He is at goal for the time being. No edema no signs of any fluid overload. discussion with the family with recommendations for a PEG and trach probably early next week. We' ll consult general surgery regarding a PEG and trach insertion. Objective - Vital Signs Vital signs: Vital Signs Temp 99.2 F 04/03/18 08:00 Pulse 88 04/03/18 08:27 Resp 20 04/03/18 08:00 BP 134/87 04/03/18 08:00 Pulse Ox 96 04/03/18 08:00 Intake & Output 04/02/18 04/03/18 04/03/18 18:59 06:59 18:59 Intake Total 9735.213 8612.504 185 Output Total 725 995 75 Balance 597.969 396.504 110 Weight 71.4 kg 70.6 kg Intake: IV 485 260 20 Levofloxacin 500Mg-D5w 100 Pmx 500 mg In Dextrose/ Water 1 100ml.bag @ 100 mls/hr IVPB Q24HR [facility] Rx# :[id number] Sodium Chloride 0.9% 1, 385 260 20 000 ml @ 20 mls/hr IV . Q24H [facility] Rx#:[id number] Intake, IV Titration 287.969 606.504 100 Amount Dexmedetomidine/0.9% NaCl 29.800 (Pmx) 400 mcg In Empty Bag 1 bag @ Titrate IV . Q0M [facility] Rx#:[id number] Potassium Phosphate 10 250 mmol In Sodium Chloride 0 .9% 250 ml @ 125 mls/hr IV ONCE ONE Rx#:[id number] Propofol 1,000 mg In 258.169 356.504 100 Empty Bag 1 bag @ Titrate IV .Q0M [facility] Rx#: [id number] Tube Feeding 550 435 35 Other 90 30 Output: Urine 725 995 75 Other: Voiding Method Indwelling Catheter Indwelling Catheter Indwelling Catheter ABP, PAP, CO, CI - Last Documented Arterial Blood Pressure 120/61 - Exam Head exam was generally normal. There was no scleral icterus or corneal arcus. Mucous membranes were moist. Neck was supple and without jugular venous distension, thyromegaly, or carotid bruits. Carotids were easily palpable bilaterally. There was no adenopathy. Orogastric and orotracheal tube are both in place. The patient has a left subclavian triple-lumen catheter in place. Lungs sounds are diminished bilaterally along with some few scattered expiratory wheezes heard throughout the lung joseph and there is pronation of expiratory phase of breathing. Cardiac exam revealed the PMI to be normally situated and sized. The rhythm was regular and no extrasystoles were noted during several minutes of auscultation. The first and second heart sounds were normal and physiologic splitting of the second heart sound was noted. There were no murmurs, rubs, clicks, or gallops. Abdominal exam revealed normal bowel sounds. The abdomen was soft, non-tender, and without masses, organomegaly, or appreciable enlargement of the abdominal aorta. Examination of the extremities revealed easily palpable radial, femoral and pedal pulses. There was no cyanosis, clubbing or edema. The patient has an art line in his right upper extremity Examination of the skin revealed no evidence of significant rashes, suspicious appearing nevi or other concerning lesions. Neurologically the patient is sedated yet responsive to painful stimulation. - Labs CBC & Chem 7: 04/03/18 04:20 04/03/18 04:20 Labs: Abnormal Lab Results - Last 24 Hours (Table) 04/02/18 04/02/18 04/02/18 Range/Units 08:09 12:14 16:34 RBC (4.30-5.90) m/uL Hgb (13.0-17.5) gm/dL Hct (39.0-53.0) % Lymphocytes # (1.0-4.8) k/uL ABG pCO2 (35-45) mmHg ABG HCO3 (21-25) mmol/L ABG Total CO2 (19-24) mmol/L ABG O2 Saturation (94-97) % Carbon Dioxide (22-30) mmol/L BUN (9-20) mg/dL Creatinine (0.66-1.25) mg/dL Glucose (74-99) mg/dL POC Glucose (mg/dL) 147 H 139 H 153 H (75-99) mg/dL Calcium (8.4-10.2) mg/dL Phosphorus (2.5-4.5) mg/dL Magnesium (1.6-2.3) mg/dL 04/02/18 04/02/18 04/03/18 Range/Units 20:25 23:57 01:21 RBC (4.30-5.90) m/uL Hgb (13.0-17.5) gm/dL Hct (39.0-53.0) % Lymphocytes # (1.0-4.8) k/uL ABG pCO2 (35-45) mmHg ABG HCO3 (21-25) mmol/L ABG Total CO2 (19-24) mmol/L ABG O2 Saturation (94-97) % Carbon Dioxide (22-30) mmol/L BUN (9-20) mg/dL Creatinine (0.66-1.25) mg/dL Glucose (74-99) mg/dL POC Glucose (mg/dL) 159 H 146 H 172 H (75-99) mg/dL Calcium (8.4-10.2) mg/dL Phosphorus (2.5-4.5) mg/dL Magnesium (1.6-2.3) mg/dL 04/03/18 04/03/18 04/03/18 Range/Units 04:16 04:20 04:20 RBC 3.82 L (4.30-5.90) m/uL Hgb 12.1 L (13.0-17.5) gm/dL Hct 37.6 L (39.0-53.0) % Lymphocytes # 0.2 L (1.0-4.8) k/uL ABG pCO2 (35-45) mmHg ABG HCO3 (21-25) mmol/L ABG Total CO2 (19-24) mmol/L ABG O2 Saturation (94-97) % Carbon Dioxide 32 H (22-30) mmol/L BUN 30 H (9-20) mg/dL Creatinine 0.55 L (0.66-1.25) mg/dL Glucose 157 H (74-99) mg/dL POC Glucose (mg/dL) 169 H (75-99) mg/dL Calcium 7.8 L (8.4-10.2) mg/dL Phosphorus 2.4 L (2.5-4.5) mg/dL Magnesium 3.1 H (1.6-2.3) mg/dL 04/03/18 04/03/18 Range/Units 04:49 07:28 RBC (4.30-5.90) m/uL Hgb (13.0-17.5) gm/dL Hct (39.0-53.0) % Lymphocytes # (1.0-4.8) k/uL ABG pCO2 53 H (35-45) mmHg ABG HCO3 34 H (21-25) mmol/L ABG Total CO2 35 H (19-24) mmol/L ABG O2 Saturation 97.7 H (94-97) % Carbon Dioxide (22-30) mmol/L BUN (9-20) mg/dL Creatinine (0.66-1.25) mg/dL Glucose (74-99) mg/dL POC Glucose (mg/dL) 158 H (75-99) mg/dL Calcium (8.4-10.2) mg/dL Phosphorus (2.5-4.5) mg/dL Magnesium (1.6-2.3) mg/dL Microbiology - Last 24 Hours (Table) 03/30/18 17:29 Blood Culture - Preliminary Blood No Growth after 72 hours 03/31/18 07:12 Gram Stain - Final Sputum Sputum Culture - Final Assessment and Plan Assessment: 1. Acute COPD exacerbation secondary to an acute influenza tracheobronchitis. - No evidence of pneumonia based on the chest x-ray finding; COPD exacerbated related to this viral infection and currently the patient is in respiratory failure and intubated on mechanical ventilator. - Patient remains on nebulized bronchodilators and steroids and systemic steroids; continue with current IV antibiotics; continue with Tamiflu 75 mg every 12 hours - Nutritional support is to be continued with tube feeding 2. Acute on chronic hypoxic/ hypercapnic respiratory failure, secondary to above 3. Advanced COPD; in exacerbation as above 4. Chronic tobacco dependence 5. Chronic anxiety 6. Obstructive sleep apnea maintained on CPAP at a pressure of 9 cm of water on outpatient basis 7. DVT prophylaxis; heparin 5000 units subcu CODE STATUS; full code
[2018-04-03 23:52] LABS: Glucose,Whole Blood 173 mg/dL (75-99)
[2018-04-03 23:56] LABS: Glucose,Whole Blood 163 mg/dL (75-99)
[2018-04-04] MEDS: PROPOFOL 1,000 MG in EMPTY BAG 1 BAG IV SCH ×5 (01:04→23:44)
[2018-04-04 04:25] LABS: ABG Base Excess 10.2 mmol/L; ABG HCO3 35 mmol/L (21-25); ABG Oxygen Saturation 96.4 % (94-97); ABG PCO2 61 mmHg (35-45); ABG PH 7.38 (7.35-7.45); ABG PO2 86 mmHg (83-108); ABG TCO2 37 mmol/L (19-24)
[2018-04-04 05:14] LABS: Glucose,Whole Blood 178 mg/dL (75-99)
[2018-04-04 05:29] LABS: Basophils % (A) 0 %; Eosinophils # (A) 0.1 k/uL (0-0.7); Eosinophils % (A) 1 %; HCT 37.1 % (39.0-53.0); HGB 11.6 gm/dL (13.0-17.5); Hypochromasia Slight; Lymphocytes # (A) 0.3 k/uL (1.0-4.8); Lymphocytes % (A) 4 %; MCH 31.8 pg (25.0-35.0); MCHC 31.4 g/dL (31.0-37.0); MCV 101.2 fL (80.0-100.0); Macrocytosis Slight; Mean Platelet Volume 8.6; Monocytes # (A) 0.3 k/uL (0-1.0); Monocytes % (A) 4 %; Neutrophils # (A) 6.9 k/uL (1.3-7.7); Neutrophils % (A) 89 %; Platelet Count 165 k/uL (150-450); RBC 3.66 m/uL (4.30-5.90); RDW 14.1 % (11.5-15.5); WBC 7.8 k/uL (3.8-10.6)
[2018-04-04] MEDS: INSULIN ASPART (NovoLOG) 100 UNIT/ML VIAL SQ SCH ×6 (05:31→23:43)
[2018-04-04] MEDS: OSELTAMIVIR 75 MG CAP PO SCH (05:32)
[2018-04-04] MEDS: methylPREDNISolone SOD SUCCI 125 MG/2 ML VIAL IV SCH ×4 (05:33→23:31)
[2018-04-04 05:47] LABS: Anion Gap 2 mmol/L; Blood Urea Nitrogen 38 mg/dL (9-20); Calcium 7.6 mg/dL (8.4-10.2); Carbon Dioxide 34 mmol/L (22-30); Chloride 105 mmol/L (98-107); Glucose 183 mg/dL (74-99); Magnesium 3.2 mg/dL (1.6-2.3); Phosphorus 3.6 mg/dL (2.5-4.5); Potassium 5.3 mmol/L (3.5-5.1); Sodium 141 mmol/L (137-145)
[2018-04-04] MEDS: MIDAZOLAM HCL 50 MG in SODIUM CHLORIDE 0.9% 40 ML IV SCH ×2 (05:55→10:20)
[2018-04-04 06:15] LABS: Glucose,Whole Blood 189 mg/dL (75-99)
[2018-04-04] MEDS: IPRATROPIUM-ALBUTEROL 3 ML NEB INHALATION SCH ×4 (07:20→19:24)
[2018-04-04] MEDS: FORMOTEROL FUMARATE 20 MCG/2 ML NEBU INHALATION SCH ×2 (07:20→19:24)
[2018-04-04] MEDS: BUDESONIDE 1 MG/2 ML NEBU INHALATION SCH ×2 (07:20→19:24)
--- NOTE | 2018-04-04 07:29 | XR ---
EXAMINATION TYPE: XR chest 1V portable DATE OF EXAM: 04/04/2018 COMPARISON: 04/03/2018 INDICATION: Tube placement TECHNIQUE: Single frontal view of the chest is obtained. FINDINGS: The heart size is normal. The pulmonary vasculature is normal. The lungs are clear. Endotracheal tube tip is above the hilda. Nasogastric tube transverses the thorax. Left central veno us catheter tip is in the distal superior vena cava. IMPRESSION: 1. No acute pulmonary process. 2. Lines and catheters discussed above
[2018-04-04 08:23] LABS: Glucose,Whole Blood 143 mg/dL (75-99)
[2018-04-04] MEDS: HEPARIN SODIUM,PORCINE 5,000 UNIT/ML 1 ML VIAL SQ SCH ×3 (08:42→23:31)
[2018-04-04] MEDS: FAMOTIDINE 20 MG/2 ML VIAL IV SCH ×2 (08:43→20:16)
[2018-04-04] MEDS: CHLORHEXIDINE GLUCONATE 15 ML CUP MUCOUS MEM SCH ×2 (08:43→20:16)
[2018-04-04] MEDS: LEVOFLOXACIN 500MG-D5W PMX 500 MG in DEXTROSE/WATER 1 100ML.BAG IVPB SCH (08:44)
--- NOTE | 2018-04-04 12:03 | P.GSCN ---
History of Present Illness Consult date: 04/04/18 Reason for Consult: Respiratory failure History of present illness: We were consulted to see this patient for tracheostomy and PEG tube placement. Patient is been on the ventilator since 03/31. Patient has a history of severe COPD. He apparently has failed weaning trials. No previous ventilatory placement. Family is supportive of the plans for tracheostomy and PEG tube. Oxygen requirement at 35% PEEP 5. Review of Systems ROS unobtainable: due to endotracheal tube Past Medical History Past Medical History: COPD, Sleep Apnea/CPAP/BIPAP Additional Past Medical History / Comment(s): COPD, previous hospitalization for COPD exacerbations, chronic hypoxic respiratory failure, kidney stones, CPAP /oxygen at night, potential Diabetes (Possibly steroids involved), chronic anxiety History of Any Multi-Drug Resistant Organisms: None Reported Past Surgical History: Hernia Repair Additional Past Surgical History / Comment(s): . Past Anesthesia/Blood Transfusion Reactions: No Reported Reaction Additional Past Anesthesia/Blood Transfusion Reaction / Comm: no blood transfusions Past Psychological History: Anxiety Additional Psychological History / Comment(s): anxiety with shortness of breath. Smoking Status: Current some day smoker Past Alcohol Use History: Occasional Additional Past Alcohol Use History / Comment(s): started smoking at age 16 used to smoke 1.5 ppd, "very infrequent now" Past Drug Use History: Marijuana - Past Family History Father Family Medical History: COPD Additional Family Medical History / Comment(s): of lung cancer Mother Family Medical History: Asthma Medications and Allergies Home Medications Medication Instructions Recorded Confirmed Type Fexofenadine HCl [Alaina Allergy] 180 mg PO DAILY 03/21/15 03/30/18 History Mometasone/Formoterol [Dulera 200 2 puff INHALATION RT-BID 03/21/15 03/30/18 History Mcg/5 Mcg Inhaler] Albuterol Sulfate [Proair Hfa] 2 puff INHALATION RT-QID PRN 07/28/16 03/30/18 History Alendronate Sodium [Fosamax] 70 mg PO [place] 07/28/16 03/30/18 History Theophylline Anhydrous [Uniphyl] 200 mg PO BID 12/20/16 03/30/18 History predniSONE 5 mg PO DAILY #0 12/23/16 03/30/18 Rx Ipratropium-Albuterol Nebulize 3 ml INHALATION RT-QID PRN 01/04/18 03/30/18 History [Duoneb 0.5 mg-3 mg/3 ml Soln] Azithromycin 250 mg PO Q48H 03/30/18 03/30/18 History Allergies Allergy/AdvReac Type Severity Reaction Status Date / Time No Known Allergies Allergy Verified 03/30/18 17:57 Surgical - Exam Vital Signs Pulse Resp BP Pulse Ox 130 H 32 H 167/109 96 03/30/18 17:19 03/30/18 17:19 03/30/18 17:19 03/30/18 17:19 Physical exam: General: Well-developed, well-nourished HEENT: Normocephalic, sclerae nonicteric Abdomen: Nontender, slightly distended Extremities: No edema Neuro: Alert and oriented Results - Labs 04/04/18 05:15 04/04/18 05:15 Abnormal Lab Results - Last 24 Hours (Table) 04/03/18 04/03/18 04/03/18 Range/Units 17:26 20:41 23:52 RBC (4.30-5.90) m/uL Hgb (13.0-17.5) gm/dL Hct (39.0-53.0) % MCV (80.0-100.0) fL Lymphocytes # (1.0-4.8) k/uL ABG pCO2 (35-45) mmHg ABG HCO3 (21-25) mmol/L ABG Total CO2 (19-24) mmol/L Potassium (3.5-5.1) mmol/L Carbon Dioxide (22-30) mmol/L BUN (9-20) mg/dL Creatinine (0.66-1.25) mg/dL Glucose (74-99) mg/dL POC Glucose (mg/dL) 155 H 169 H 173 H (75-99) mg/dL Calcium (8.4-10.2) mg/dL Magnesium (1.6-2.3) mg/dL 04/03/18 04/04/18 04/04/18 Range/Units 23:55 04:20 05:10 RBC (4.30-5.90) m/uL Hgb (13.0-17.5) gm/dL Hct (39.0-53.0) % MCV (80.0-100.0) fL Lymphocytes # (1.0-4.8) k/uL ABG pCO2 61 H (35-45) mmHg ABG HCO3 35 H (21-25) mmol/L ABG Total CO2 37 H (19-24) mmol/L Potassium (3.5-5.1) mmol/L Carbon Dioxide (22-30) mmol/L BUN (9-20) mg/dL Creatinine (0.66-1.25) mg/dL Glucose (74-99) mg/dL POC Glucose (mg/dL) 163 H 178 H (75-99) mg/dL Calcium (8.4-10.2) mg/dL Magnesium (1.6-2.3) mg/dL 04/04/18 04/04/18 04/04/18 Range/Units 05:15 05:15 06:13 RBC 3.66 L (4.30-5.90) m/uL Hgb 11.6 L (13.0-17.5) gm/dL Hct 37.1 L (39.0-53.0) % MCV 101.2 H (80.0-100.0) fL Lymphocytes # 0.3 L (1.0-4.8) k/uL ABG pCO2 (35-45) mmHg ABG HCO3 (21-25) mmol/L ABG Total CO2 (19-24) mmol/L Potassium 5.3 H (3.5-5.1) mmol/L Carbon Dioxide 34 H (22-30) mmol/L BUN 38 H (9-20) mg/dL Creatinine 0.62 L (0.66-1.25) mg/dL Glucose 183 H (74-99) mg/dL POC Glucose (mg/dL) 189 H (75-99) mg/dL Calcium 7.6 L (8.4-10.2) mg/dL Magnesium 3.2 H (1.6-2.3) mg/dL 04/04/18 Range/Units 08:15 RBC (4.30-5.90) m/uL Hgb (13.0-17.5) gm/dL Hct (39.0-53.0) % MCV (80.0-100.0) fL Lymphocytes # (1.0-4.8) k/uL ABG pCO2 (35-45) mmHg ABG HCO3 (21-25) mmol/L ABG Total CO2 (19-24) mmol/L Potassium (3.5-5.1) mmol/L Carbon Dioxide (22-30) mmol/L BUN (9-20) mg/dL Creatinine (0.66-1.25) mg/dL Glucose (74-99) mg/dL POC Glucose (mg/dL) 143 H (75-99) mg/dL Calcium (8.4-10.2) mg/dL Magnesium (1.6-2.3) mg/dL Microbiology - Last 24 Hours (Table) 03/30/18 17:29 Blood Culture - Preliminary Blood No Growth after 96 hours Diabetes panel 04/04/18 Range/Units 05:15 Sodium 141 (137-145) mmol/L Potassium 5.3 H (3.5-5.1) mmol/L Chloride 105 (98-107) mmol/L Carbon Dioxide 34 H (22-30) mmol/L BUN 38 H (9-20) mg/dL Creatinine 0.62 L (0.66-1.25) mg/dL Glucose 183 H (74-99) mg/dL Calcium 7.6 L (8.4-10.2) mg/dL Calcium panel 04/04/18 Range/Units 05:15 Calcium 7.6 L (8.4-10.2) mg/dL Phosphorus 3.6 (2.5-4.5) mg/dL Pituitary panel 04/04/18 Range/Units 05:15 Sodium 141 (137-145) mmol/L Potassium 5.3 H (3.5-5.1) mmol/L Chloride 105 (98-107) mmol/L Carbon Dioxide 34 H (22-30) mmol/L BUN 38 H (9-20) mg/dL Creatinine 0.62 L (0.66-1.25) mg/dL Glucose 183 H (74-99) mg/dL Calcium 7.6 L (8.4-10.2) mg/dL Adrenal panel 04/04/18 Range/Units 05:15 Sodium 141 (137-145) mmol/L Potassium 5.3 H (3.5-5.1) mmol/L Chloride 105 (98-107) mmol/L Carbon Dioxide 34 H (22-30) mmol/L BUN 38 H (9-20) mg/dL Creatinine 0.62 L (0.66-1.25) mg/dL Glucose 183 H (74-99) mg/dL Calcium 7.6 L (8.4-10.2) mg/dL Assessment and Plan (1) Acute respiratory failure Narrative/Plan: Clinical scenario discussed with the patient's . Options of tracheostomy and PEG tube placement offered. She is interested in proceeding with the procedure. Risks of bleeding, infection, tube misplacement, balloon failure, leak, bowel injury, long-term respiratory failure, reviewed. She understands and wishes to proceed. Current Visit: No Status: Acute Code(s): J96.00 - ACUTE RESPIRATORY FAILURE , UNSP W HYPOXIA OR HYPERCAPNIA SNOMED Code(s): 73881321
[2018-04-04 12:34] LABS: Glucose,Whole Blood 160 mg/dL (75-99)
--- NOTE | 2018-04-04 12:53 | P.PN ---
Subjective Progress Note Date: 04/04/18 A 57-year-old male patient with advanced COPD with an FEV1 of less than 30% of predicted and chronic hypoxic respiratory failure with reduction dependent who also has history of obstructive sleep apnea mechanical CPAP therapy. The patient has an AHI of 23 and the patient has been maintained on CPAP therapy at a pressure of 9 cm of water on outpatient basis. In terms of COPD, the patient has been receiving Dulera, theophylline and maintenance 5 mg of prednisone a daily basis. The patient had 2 hospitalizations back in 2018 in the last hospitalization was in January 2018 for an acute on top of chronic hypoxic respiratory failure and COPD exacerbation. The patient was treated and the patient was discharged home. Over the past 24 hours, the patient became acutely ill. His had a rest or checked infection subsequently he got sick and within 24 hours he started having fever and chills and cough and congestion and shortness of breath and for that reason he was brought into the hospital. On route, the patient was placed on BiPAP. The same was done in the emergency department. He checked positive for influenza a and he was started on Tamiflu in addition to bronchodilators and steroids. He continued to be on a BiPAP and later on he failed BiPAP and he had to be intubated and placed on a mechanical ventilator. This morning, the patient is an assist-control mode of ventilation. His tidal volumes of 400 with an FiO2 of 50% with a PEEP of 5 and respiratory rate of 20. His peak air pressure is around and static air pressure of 22. There has been improvement in his acid-base status. The morning blood gas showed a pH of 7.32 with a pCO2 of 55 and pO2 of 172 and this was on FiO2 of 50%. Chest x-rays consistent with COPD and there is no evidence of any pulmonary infiltration or pneumonia. The patient had some diminished urine output and the patient is currently on IV fluids at the rate of 75 mL an hour. No leukocytosis. Renal function is stable. Currently sedated with Diprivan and, comfortable. Hemodynamically stable on no pressors. No reported chest pain. No reported swelling in lower extremities. Family is at the bedside. On today's evaluation of 04/01/2018 I'm seeing this patient for a follow-up. The patient remains sedated, comfortable mechanical ventilator. The patient is a tidal volume of 450 with an FiO2 of 40% and PEEP of 5 and the rate of 20. Peak airway pressures 31 and static pressures around 21. Chest x-ray showing hyperinflation without any acute pulmonary abnormalities or infiltrates. The patient is bronchospastic and wheezy. The patient has no auto PEEP. The patient's blood gases from today showed a pH of 7.35 with a pCO2 of 50 and pO2 of 126. The patient tolerating his tube feeds. The patient is hemodynamically stable. Remains on examination bronchodilators and steroids and antibiotics. The sputum cultures still negative. Blood cultures negative. No pressors. No other significant events overnight. Family is at the bedside. This is going to be a difficult wean knowing that the patient has advanced COPD with a baseline FEV1 of 30% of predicted. The patient also has chronic hypoxic respiratory failure. He is also known to have obstructive sleep apnea. On 04/02/2018 patient is being seen for a follow-up. Remains on a mechanical ventilator. Remains sedated. He was given a sedation holiday today which went very poorly. The patient aroused quite uncomfortable and he was fighting the respirator. He was completely synchronous. He became tachycardic and tachypneic and subsequently his oxygen saturations dropped and he was not getting his volumes. At that point, the sedation holiday was discontinued and the patient was placed back on sedation. He was given also a short spontaneous breathing trial which ended up being a failure. For now, the patient is an assist-control mode at the rate of 20 with tidal volume of 400 and FiO2 of 40% and PEEP of 5. I kept him on Diprivan. I switched him to ABC plus mode with a Itime of 0.9 seconds. His blood gases from earlier this morning showed a pH of 7.34 with a pCO2 of 53 and pO2 of 91. No significant orotracheal secretions. Peak airway pressures still at 30. No auto PEEP. The chest x-ray from today was no significant abnormalities. It correlates with COPD. All of the lines are in place. The patient is otherwise hemodynamically stable. He is receiving his tube feeds. No hemodynamic instability. He is producing adequate amount of urine output. He is afebrile. Family is at the bedside. Obviously this will be a difficult to wean knowing that his baseline FEV1 is around 30% of predicted and he has chronic hypoxic respiratory failure in addition to obstructive sleep apnea. On 04/03/2018 I'm seeing this patient for a follow-up. The patient remains on a mechanical ventilator. Attempts to switch him to Precedex yesterday failed and the patient was unable to hold his anxiety and agitation. For that reason the patient was started on clonazepam 1 mg twice a day and this morning he was gradually went off Diprivan. After dropping the Diprivan dose down to 20 mics per KG per minute, the patient started having increased anxiety, agitation, restlessness, hypertension, tachypnea, tachycardia, asynchronous with a mechanical ventilator. Based on all this, the attempt was aborted and the patient was placed back on sedation. He remains on a VC plus mode of mechanical ventilation. His rate is at 20 with tidal volume 400 and FiO2 of 40 % with a PEEP of 5. Chest x-ray shows no acute abnormalities and blood gases show a pH of 7.41 with a pCO2 50 and pO2 of 87. Rest of the blood work and electrodes are all within normal limits. He is tolerating his tube feeds. He is at goal for the time being. No edema no signs of any fluid overload. No fever or chills. No respiratory secretions. Had a lengthy discussion with the family and this will be a prolonged and slow wean and I've made recommendations for a PEG and trach probably early next week. We'll consult general surgery regarding a PEG and trach insertion. On 04/04/2018, the patient remains on a mechanical ventilator. We have made adjustments on the patient's sedation. Currently the patient on Versed drip at 8 mg/h and the patient is also on propofol which is down to 20 g per KG per minute. The patient is doing well. Very symptoms with the mechanical ventilator. Still on the same vent setting. No sedation holiday was given as the patient is quite agitated and restless and asynchronous with a mechanical ventilator and he would obviously failed sedation holiday. Note that he does not fully gaining consensual consciousness when he is off the sedation. Otherwise, he remains hemodynamically stable. He remains on a VC plus mode of mechanical ventilation. He is on a tidal volume of 400 with a rate of 20 and an FiO2 of 40% with a PEEP of 5. Chest x-ray findings are as essentially unchanged. The blood gases from today show a pH of 7.38 with a pCO2 of 61 and pO2 of 86. No fever. No chills. Tolerating his tube feeds. The general surgeon was consulted for a PEG and a tracheostomy tube insertion in a.m. Objective - Vital Signs Vital signs: Vital Signs Temp 97.6 F 04/04/18 12:00 Pulse 75 04/04/18 12:00 Resp 20 04/04/18 12:00 BP 114/80 04/04/18 08:30 Pulse Ox 95 04/04/18 12:00 Intake & Output 04/03/18 04/04/18 04/04/18 18:59 06:59 18:59 Intake Total 1095.000 621.143 470.396 Output Total 580 680 320 Balance 515.000 -58.857 150.396 Weight 71.5 kg Intake: IV 320 220 220 Levofloxacin 500Mg-D5w 100 100 Pmx 500 mg In Dextrose/ Water 1 100ml.bag @ 100 mls/hr IVPB Q24HR [facility] Rx# :[id number] Sodium Chloride 0.9% 1, 220 220 120 000 ml @ 20 mls/hr IV . Q24H [facility] Rx#:[id number] Intake, IV Titration 300.000 261.143 110.396 Amount Midazolam HCl 50 mg In 43.916 46.6 Sodium Chloride 0.9% 40 ml @ 1 MG/HR 1 mls/hr IV .Q24H [facility] Rx#:[id number] Propofol 1,000 mg In 300.000 217.227 63.796 Empty Bag 1 bag @ Titrate IV .Q0M [facility] Rx#: [id number] Oral 35 Tube Feeding 385 140 105 Other 90 Output: Urine 580 680 320 Other: Voiding Method Indwelling Catheter Indwelling Catheter Indwelling Catheter ABP, PAP, CO, CI - Last Documented Arterial Blood Pressure 137/65 - Exam The patient is calm and comfortable intubated on mechanical ventilator sedated with Diprivan. The patient is synchronous with the mechanical ventilator. No obvious signs of any respiratory distress at this point in time Head exam was generally normal. There was no scleral icterus or corneal arcus. Mucous membranes were moist. Neck was supple and without jugular venous distension, thyromegaly, or carotid bruits. Carotids were easily palpable bilaterally. There was no adenopathy. Orogastric and orotracheal tube are both in place. The patient has a left subclavian triple-lumen catheter in place. Lungs sounds are diminished bilaterally along with some few scattered expiratory wheezes heard throughout the lung joseph and there is pronation of expiratory phase of breathing. Cardiac exam revealed the PMI to be normally situated and sized. The rhythm was regular and no extrasystoles were noted during several minutes of auscultation. The first and second heart sounds were normal and physiologic splitting of the second heart sound was noted. There were no murmurs, rubs, clicks, or gallops. Abdominal exam revealed normal bowel sounds. The abdomen was soft, non-tender, and without masses, organomegaly, or appreciable enlargement of the abdominal aorta. Examination of the extremities revealed easily palpable radial, femoral and pedal pulses. There was no cyanosis, clubbing or edema. The patient has an art line in his right upper extremity Examination of the skin revealed no evidence of significant rashes, suspicious appearing nevi or other concerning lesions. Neurologically the patient is sedated yet responsive to painful stimulation. - Labs CBC & Chem 7: 04/04/18 05:15 04/04/18 05:15 Labs: Abnormal Lab Results - Last 24 Hours (Table) 04/03/18 04/03/18 04/03/18 Range/Units 17:26 20:41 23:52 RBC (4.30-5.90) m/uL Hgb (13.0-17.5) gm/dL Hct (39.0-53.0) % MCV (80.0-100.0) fL Lymphocytes # (1.0-4.8) k/uL ABG pCO2 (35-45) mmHg ABG HCO3 (21-25) mmol/L ABG Total CO2 (19-24) mmol/L Potassium (3.5-5.1) mmol/L Carbon Dioxide (22-30) mmol/L BUN (9-20) mg/dL Creatinine (0.66-1.25) mg/dL Glucose (74-99) mg/dL POC Glucose (mg/dL) 155 H 169 H 173 H (75-99) mg/dL Calcium (8.4-10.2) mg/dL Magnesium (1.6-2.3) mg/dL 04/03/18 04/04/18 04/04/18 Range/Units 23:55 04:20 05:10 RBC (4.30-5.90) m/uL Hgb (13.0-17.5) gm/dL Hct (39.0-53.0) % MCV (80.0-100.0) fL Lymphocytes # (1.0-4.8) k/uL ABG pCO2 61 H (35-45) mmHg ABG HCO3 35 H (21-25) mmol/L ABG Total CO2 37 H (19-24) mmol/L Potassium (3.5-5.1) mmol/L Carbon Dioxide (22-30) mmol/L BUN (9-20) mg/dL Creatinine (0.66-1.25) mg/dL Glucose (74-99) mg/dL POC Glucose (mg/dL) 163 H 178 H (75-99) mg/dL Calcium (8.4-10.2) mg/dL Magnesium (1.6-2.3) mg/dL 04/04/18 04/04/18 04/04/18 Range/Units 05:15 05:15 06:13 RBC 3.66 L (4.30-5.90) m/uL Hgb 11.6 L (13.0-17.5) gm/dL Hct 37.1 L (39.0-53.0) % MCV 101.2 H (80.0-100.0) fL Lymphocytes # 0.3 L (1.0-4.8) k/uL ABG pCO2 (35-45) mmHg ABG HCO3 (21-25) mmol/L ABG Total CO2 (19-24) mmol/L Potassium 5.3 H (3.5-5.1) mmol/L Carbon Dioxide 34 H (22-30) mmol/L BUN 38 H (9-20) mg/dL Creatinine 0.62 L (0.66-1.25) mg/dL Glucose 183 H (74-99) mg/dL POC Glucose (mg/dL) 189 H (75-99) mg/dL Calcium 7.6 L (8.4-10.2) mg/dL Magnesium 3.2 H (1.6-2.3) mg/dL 04/04/18 04/04/18 Range/Units 08:15 12:32 RBC (4.30-5.90) m/uL Hgb (13.0-17.5) gm/dL Hct (39.0-53.0) % MCV (80.0-100.0) fL Lymphocytes # (1.0-4.8) k/uL ABG pCO2 (35-45) mmHg ABG HCO3 (21-25) mmol/L ABG Total CO2 (19-24) mmol/L Potassium (3.5-5.1) mmol/L Carbon Dioxide (22-30) mmol/L BUN (9-20) mg/dL Creatinine (0.66-1.25) mg/dL Glucose (74-99) mg/dL POC Glucose (mg/dL) 143 H 160 H (75-99) mg/dL Calcium (8.4-10.2) mg/dL Magnesium (1.6-2.3) mg/dL Microbiology - Last 24 Hours (Table) 03/30/18 17:29 Blood Culture - Preliminary Blood No Growth after 96 hours Assessment and Plan Plan: Assessment 1 acute COPD exacerbation secondary to an acute influenza tracheal bronchitis/ respiratory infection. Patient remains intubated on a mechanical ventilator. He failed initial BiPAP therapy and subsequently had to be intubated. His been on a mechanical ventilator since. Unable to wean this patient off sedation. He is not tolerating weaning trials. He gets very anxious and restless and agitated and asynchronous with the mechanical ventilator in addition to that the patient also has autonomic response. This could be potentially related to excessive and I have an anxiety force the patient was given clonazepam. There may be also a component of respiratory failure contributing to his inability to come off sedation. The patient will need a PEG and trach. 2 acute on top of chronic hypoxic respiratory failure, secondary to above 3 advanced COPD at baseline with FEV1 of less than 30% of predicted 4 previous hospitalization for COPD exacerbations last one being in January 2018 5 smoker 6 chronic anxiety 7 acute on Chronic hypercapnic respiratory failure secondary to COPD 8 obstructive sleep apnea maintained on CPAP at a pressure of 9 cm of water on outpatient basis 9 enteral feeding for nutritional support Plan Condition is essentially the same. We'll planning for a PEG and trach in the morning. Continue vent support. Continue sedation with accommodation of the prevent and Versed drip and discontinue the clonazepam tablets. Continue supportive care including enteral feeding for nutritional support. IV fluids at [facility]. Discussed the case with Dr. Torres and also updated the family and the regarding his progress. They're agreeable for the PEG and trach in a.m. This is a critically care evaluation. This was done more than 30 minutes. Time with Patient: Greater than 30
[2018-04-04] MEDS: MIDAZOLAM HCL 200 MG in SODIUM CHLORIDE 0.9% 60 ML IV SCH (14:58)
[2018-04-04 16:30] LABS: Glucose,Whole Blood 160 mg/dL (75-99)
[2018-04-04] MEDS: hydrALAZINE HCL 20 MG/ML 1 ML VIAL IV PRN (18:46)
[2018-04-04 20:11] LABS: Glucose,Whole Blood 173 mg/dL (75-99)
[2018-04-04] MEDS: SODIUM CHLORIDE 0.9% 1,000 ML IV SCH (20:14)
[2018-04-04] MEDS: HYDROmorphone 1 MG/ML 1 ML SYRINGE IVP PRN (20:16)
[2018-04-04 23:29] LABS: Glucose,Whole Blood 145 mg/dL (75-99)
[2018-04-05] MEDS: MIDAZOLAM HCL 200 MG in SODIUM CHLORIDE 0.9% 60 ML IV SCH (02:37)
[2018-04-05] MEDS: SODIUM CHLORIDE 0.9% 1,000 ML IV SCH (02:45)
[2018-04-05 03:49] LABS: Glucose,Whole Blood 146 mg/dL (75-99)
[2018-04-05 04:39] LABS: ABG Base Excess 13.6 mmol/L; ABG HCO3 38 mmol/L (21-25); ABG Oxygen Saturation 97.3 % (94-97); ABG PCO2 55 mmHg (35-45); ABG PH 7.45 (7.35-7.45); ABG PO2 86 mmHg (83-108); ABG TCO2 39 mmol/L (19-24)
[2018-04-05 04:54] LABS: Basophils % (A) 0 %; Eosinophils # (A) 0.1 k/uL (0-0.7); Eosinophils % (A) 1 %; HCT 35.5 % (39.0-53.0); HGB 11.5 gm/dL (13.0-17.5); Lymphocytes # (A) 0.2 k/uL (1.0-4.8); Lymphocytes % (A) 3 %; MCH 31.4 pg (25.0-35.0); MCHC 32.5 g/dL (31.0-37.0); MCV 96.7 fL (80.0-100.0); Mean Platelet Volume 8.1; Monocytes # (A) 0.2 k/uL (0-1.0); Monocytes % (A) 3 %; Neutrophils # (A) 6.7 k/uL (1.3-7.7); Neutrophils % (A) 92 %; Platelet Count 165 k/uL (150-450); RBC 3.67 m/uL (4.30-5.90); WBC 7.2 k/uL (3.8-10.6)
[2018-04-05 05:12] LABS: Anion Gap -2 mmol/L; Blood Urea Nitrogen 41 mg/dL (9-20); Calcium 7.7 mg/dL (8.4-10.2); Carbon Dioxide 37 mmol/L (22-30); Chloride 106 mmol/L (98-107); Glucose 160 mg/dL (74-99); Magnesium 3.2 mg/dL (1.6-2.3); Potassium 5.7 mmol/L (3.5-5.1); Sodium 141 mmol/L (137-145)
[2018-04-05] MEDS: methylPREDNISolone SOD SUCCI 125 MG/2 ML VIAL IV SCH (05:34)
[2018-04-05] MEDS: INSULIN ASPART (NovoLOG) 100 UNIT/ML VIAL SQ SCH ×5 (05:34→20:51)
[2018-04-05] MEDS: PROPOFOL 1,000 MG in EMPTY BAG 1 BAG IV SCH ×3 (05:38→20:56)
[2018-04-05] MEDS: BUDESONIDE 1 MG/2 ML NEBU INHALATION SCH ×2 (07:01→18:43)
[2018-04-05] MEDS: IPRATROPIUM-ALBUTEROL 3 ML NEB INHALATION SCH ×4 (07:01→18:47)
[2018-04-05] MEDS: FORMOTEROL FUMARATE 20 MCG/2 ML NEBU INHALATION SCH ×2 (07:01→18:43)
[2018-04-05 08:05] LABS: Glucose,Whole Blood 165 mg/dL (75-99)
[2018-04-05] MEDS: LEVOFLOXACIN 500MG-D5W PMX 500 MG in DEXTROSE/WATER 1 100ML.BAG IVPB SCH (08:11)
[2018-04-05] MEDS: HEPARIN SODIUM,PORCINE 5,000 UNIT/ML 1 ML VIAL SQ SCH ×2 (08:13→16:07)
[2018-04-05] MEDS: FAMOTIDINE 20 MG/2 ML VIAL IV SCH ×2 (08:13→20:52)
[2018-04-05] MEDS: CHLORHEXIDINE GLUCONATE 15 ML CUP MUCOUS MEM SCH ×2 (08:13→20:52)
--- NOTE | 2018-04-05 09:31 | XR ---
EXAMINATION TYPE: XR chest 1V portable DATE OF EXAM: 04/05/2018 COMPARISON: 04/04/2018 HISTORY: Tube placement TECHNIQUE: Single frontal view of the chest is obtained. FINDINGS: ET tube, NG tube and central line stable. Mild prominence of the central interstitium. No pleural effusion or pneumothorax. No consolidation. Correlate for COPD. IMPRESSION: Mild interstitial prominence is stable may be chronic correlate for chronic mild interst itial lung disease or congestion. Interstitial pneumonitis or bronchitis in the differential diagnosi s.
--- NOTE | 2018-04-05 10:02 | P.PN ---
Subjective Progress Note Date: 04/04/18 Principal diagnosis: Vent dependent respiratory failure This is a 57-year-old male with a history of severe COPD, nicotine dependence, sleep apnea. who presents with worsening shortness of breath and resp distress, which was going on for 3 days, patient thought that he got some kind of infection of from his . He had myalgias and fever or chills. No chest pain. He needed CPAP during the transport. pt got intubated and he is sedated now , he in the ICU, most of the information was taken from staff and medical records. 04/02/2018 patient is being seen for a follow-up. Remains on a mechanical ventilator. Remains sedated. He was given a sedation holiday today which went very poorly. The patient aroused quite uncomfortable and he was fighting the respirator. He was completely synchronous. He became tachycardic and tachypneic and subsequently his oxygen saturations dropped and he was not getting his volumes. At that point, the sedation holiday was discontinued and the patient was placed back on sedation. He was given also a short spontaneous breathing trial which ended up being a failure. For now, the patient is an assist-control mode The chest x-ray from today was no significant abnormalities. It correlates with COPD. All of the lines are in place. The patient is otherwise hemodynamically stable. He is receiving his tube feeds. No hemodynamic instability. He is producing adequate amount of urine output. He is afebrile. Family is at the bedside. Obviously this will be a difficult to wean knowing that his baseline FEV1 is around 30% of predicted and he has chronic hypoxic respiratory failure in addition to obstructive sleep apnea. 04/03/2018 patient seen for a follow-up. The patient remains on a mechanical ventilator. Attempts to switch him to Precedex yesterday failed and the patient was unable to hold his anxiety and agitation. For that reason the patient was started on clonazepam 1 mg twice a day and this morning he was gradually went off Diprivan. After dropping the Diprivan dose down to 20 mics per KG per minute, the patient started having increased anxiety, agitation, restlessness, hypertension, tachypnea, tachycardia, asynchronous with a mechanical ventilator. Based on all this, the attempt was aborted and the patient was placed back on sedation. Chest x-ray shows no acute abnormalities and blood gases show a pH of 7.41 with a pCO2 50 and pO2 of 87. Rest of the blood work and electrodes are all within normal limits. He is tolerating his tube feeds. He is at goal for the time being. No edema no signs of any fluid overload. discussion with the family with recommendations for a PEG and trach probably early next week. We' ll consult general surgery regarding a PEG and trach insertion. 04/04/2018, the patient remains on a mechanical ventilator. Currently the patient on Versed drip at 8 mg/h and the patient is also on propofol which is down to 20 g per KG per minute. Still on the same vent setting. No sedation holiday was given as the patient is quite agitated and restless and asynchronous with a mechanical ventilator and he would obviously failed sedation holiday. Note that he does not fully gaining consensual consciousness when he is off the sedation. Otherwise, he remains hemodynamically stable. Chest x-ray findings are as essentially unchanged. The blood gases from today show a pH of 7.38 with a pCO2 of 61 and pO2 of 86. No fever. No chills. Tolerating his tube feeds. The general surgery consulted for a PEG and a tracheostomy tube insertion in a.m. Objective - Vital Signs Vital signs: Vital Signs Temp 98.1 F 04/04/18 07:30 Pulse 75 04/04/18 09:00 Resp 20 04/04/18 09:00 BP 114/80 04/04/18 08:30 Pulse Ox 93 L 04/04/18 09:00 Intake & Output 04/03/18 04/04/18 04/04/18 18:59 06:59 18:59 Intake Total 1095.000 621.143 195 Output Total 580 680 155 Balance 515.000 -58.857 40 Weight 71.5 kg Intake: IV 320 220 160 Levofloxacin 500Mg-D5w 100 100 Pmx 500 mg In Dextrose/ Water 1 100ml.bag @ 100 mls/hr IVPB Q24HR [facility] Rx# :[id number] Sodium Chloride 0.9% 1, 220 220 60 000 ml @ 20 mls/hr IV . Q24H [facility] Rx#:[id number] Intake, IV Titration 300.000 261.143 Amount Midazolam HCl 50 mg In 43.916 Sodium Chloride 0.9% 40 ml @ 1 MG/HR 1 mls/hr IV .Q24H [facility] Rx#:[id number] Propofol 1,000 mg In 300.000 217.227 Empty Bag 1 bag @ Titrate IV .Q0M [facility] Rx#: [id number] Tube Feeding 385 140 35 Other 90 Output: Urine 580 680 155 Other: Voiding Method Indwelling Catheter Indwelling Catheter Indwelling Catheter ABP, PAP, CO, CI - Last Documented Arterial Blood Pressure 134/65 - Exam Head exam was generally normal. There was no scleral icterus or corneal arcus. Mucous membranes were moist. Neck was supple and without jugular venous distension, thyromegaly, or carotid bruits. Carotids were easily palpable bilaterally. There was no adenopathy. Orogastric and orotracheal tube are both in place. The patient has a left subclavian triple-lumen catheter in place. Lungs sounds are diminished bilaterally along with some few scattered expiratory wheezes heard throughout the lung joseph and there is pronation of expiratory phase of breathing. Cardiac exam revealed the PMI to be normally situated and sized. The rhythm was regular and no extrasystoles were noted during several minutes of auscultation. The first and second heart sounds were normal and physiologic splitting of the second heart sound was noted. There were no murmurs, rubs, clicks, or gallops. Abdominal exam revealed normal bowel sounds. The abdomen was soft, non-tender, and without masses, organomegaly, or appreciable enlargement of the abdominal aorta. Examination of the extremities revealed easily palpable radial, femoral and pedal pulses. There was no cyanosis, clubbing or edema. The patient has an art line in his right upper extremity Examination of the skin revealed no evidence of significant rashes, suspicious appearing nevi or other concerning lesions. Neurologically the patient is sedated yet responsive to painful stimulation. - Labs CBC & Chem 7: 04/05/18 04:40 04/05/18 04:40 Labs: Abnormal Lab Results - Last 24 Hours (Table) 04/03/18 04/03/18 04/03/18 Range/Units 11:52 17:26 20:41 RBC (4.30-5.90) m/uL Hgb (13.0-17.5) gm/dL Hct (39.0-53.0) % MCV (80.0-100.0) fL Lymphocytes # (1.0-4.8) k/uL ABG pCO2 (35-45) mmHg ABG HCO3 (21-25) mmol/L ABG Total CO2 (19-24) mmol/L Potassium (3.5-5.1) mmol/L Carbon Dioxide (22-30) mmol/L BUN (9-20) mg/dL Creatinine (0.66-1.25) mg/dL Glucose (74-99) mg/dL POC Glucose (mg/dL) 163 H 155 H 169 H (75-99) mg/dL Calcium (8.4-10.2) mg/dL Magnesium (1.6-2.3) mg/dL 04/03/18 04/03/18 04/04/18 Range/Units 23:52 23:55 04:20 RBC (4.30-5.90) m/uL Hgb (13.0-17.5) gm/dL Hct (39.0-53.0) % MCV (80.0-100.0) fL Lymphocytes # (1.0-4.8) k/uL ABG pCO2 61 H (35-45) mmHg ABG HCO3 35 H (21-25) mmol/L ABG Total CO2 37 H (19-24) mmol/L Potassium (3.5-5.1) mmol/L Carbon Dioxide (22-30) mmol/L BUN (9-20) mg/dL Creatinine (0.66-1.25) mg/dL Glucose (74-99) mg/dL POC Glucose (mg/dL) 173 H 163 H (75-99) mg/dL Calcium (8.4-10.2) mg/dL Magnesium (1.6-2.3) mg/dL 04/04/18 04/04/18 04/04/18 Range/Units 05:10 05:15 05:15 RBC 3.66 L (4.30-5.90) m/uL Hgb 11.6 L (13.0-17.5) gm/dL Hct 37.1 L (39.0-53.0) % MCV 101.2 H (80.0-100.0) fL Lymphocytes # 0.3 L (1.0-4.8) k/uL ABG pCO2 (35-45) mmHg ABG HCO3 (21-25) mmol/L ABG Total CO2 (19-24) mmol/L Potassium 5.3 H (3.5-5.1) mmol/L Carbon Dioxide 34 H (22-30) mmol/L BUN 38 H (9-20) mg/dL Creatinine 0.62 L (0.66-1.25) mg/dL Glucose 183 H (74-99) mg/dL POC Glucose (mg/dL) 178 H (75-99) mg/dL Calcium 7.6 L (8.4-10.2) mg/dL Magnesium 3.2 H (1.6-2.3) mg/dL 04/04/18 04/04/18 Range/Units 06:13 08:15 RBC (4.30-5.90) m/uL Hgb (13.0-17.5) gm/dL Hct (39.0-53.0) % MCV (80.0-100.0) fL Lymphocytes # (1.0-4.8) k/uL ABG pCO2 (35-45) mmHg ABG HCO3 (21-25) mmol/L ABG Total CO2 (19-24) mmol/L Potassium (3.5-5.1) mmol/L Carbon Dioxide (22-30) mmol/L BUN (9-20) mg/dL Creatinine (0.66-1.25) mg/dL Glucose (74-99) mg/dL POC Glucose (mg/dL) 189 H 143 H (75-99) mg/dL Calcium (8.4-10.2) mg/dL Magnesium (1.6-2.3) mg/dL Microbiology - Last 24 Hours (Table) 03/30/18 17:29 Blood Culture - Preliminary Blood No Growth after 96 hours Assessment and Plan Assessment: 1. Acute COPD exacerbation secondary to an acute influenza tracheobronchitis. - No evidence of pneumonia based on the chest x-ray finding; COPD exacerbated related to this viral infection and currently the patient is in respiratory failure and intubated on mechanical ventilator. - Patient remains on nebulized bronchodilators and steroids and systemic steroids; continue with current IV antibiotics; continue with Tamiflu 75 mg every 12 hours - Nutritional support is to be continued with tube feeding 2. Acute on chronic hypoxic/ hypercapnic respiratory failure, secondary to above 3. Advanced COPD; in exacerbation as above 4. Chronic tobacco dependence 5. Chronic anxiety 6. Obstructive sleep apnea maintained on CPAP at a pressure of 9 cm of water on outpatient basis 7. DVT prophylaxis; heparin 5000 units subcu CODE STATUS; full code Time with Patient: Greater than 30
[2018-04-05 12:08] LABS: Glucose,Whole Blood 146 mg/dL (75-99)
[2018-04-05] MEDS ORDERED: INSULIN REGULAR 100 UNIT/ML VIAL IV ONE (14:17)
[2018-04-05] MEDS ORDERED: DEXTROSE 50%-WATER 50 ML SYRINGE IVP STA (14:17)
[2018-04-05] MEDS ORDERED: SODIUM POLYSTYRENE SULFONATE 15 GM/60 ML BOTTLE PO STA (14:25)
--- NOTE | 2018-04-05 15:02 | P.PN ---
Subjective Progress Note Date: 04/05/18 A 57-year-old male patient with advanced COPD with an FEV1 of less than 30% of predicted and chronic hypoxic respiratory failure with reduction dependent who also has history of obstructive sleep apnea mechanical CPAP therapy. The patient has an AHI of 23 and the patient has been maintained on CPAP therapy at a pressure of 9 cm of water on outpatient basis. In terms of COPD, the patient has been receiving Dulera, theophylline and maintenance 5 mg of prednisone a daily basis. The patient had 2 hospitalizations back in 2018 in the last hospitalization was in January 2018 for an acute on top of chronic hypoxic respiratory failure and COPD exacerbation. The patient was treated and the patient was discharged home. Over the past 24 hours, the patient became acutely ill. His had a rest or checked infection subsequently he got sick and within 24 hours he started having fever and chills and cough and congestion and shortness of breath and for that reason he was brought into the hospital. On route, the patient was placed on BiPAP. The same was done in the emergency department. He checked positive for influenza a and he was started on Tamiflu in addition to bronchodilators and steroids. He continued to be on a BiPAP and later on he failed BiPAP and he had to be intubated and placed on a mechanical ventilator. This morning, the patient is an assist-control mode of ventilation. His tidal volumes of 400 with an FiO2 of 50% with a PEEP of 5 and respiratory rate of 20. His peak air pressure is around and static air pressure of 22. There has been improvement in his acid-base status. The morning blood gas showed a pH of 7.32 with a pCO2 of 55 and pO2 of 172 and this was on FiO2 of 50%. Chest x-rays consistent with COPD and there is no evidence of any pulmonary infiltration or pneumonia. The patient had some diminished urine output and the patient is currently on IV fluids at the rate of 75 mL an hour. No leukocytosis. Renal function is stable. Currently sedated with Diprivan and, comfortable. Hemodynamically stable on no pressors. No reported chest pain. No reported swelling in lower extremities. Family is at the bedside. On today's evaluation of 04/01/2018 I'm seeing this patient for a follow-up. The patient remains sedated, comfortable mechanical ventilator. The patient is a tidal volume of 450 with an FiO2 of 40% and PEEP of 5 and the rate of 20. Peak airway pressures 31 and static pressures around 21. Chest x-ray showing hyperinflation without any acute pulmonary abnormalities or infiltrates. The patient is bronchospastic and wheezy. The patient has no auto PEEP. The patient's blood gases from today showed a pH of 7.35 with a pCO2 of 50 and pO2 of 126. The patient tolerating his tube feeds. The patient is hemodynamically stable. Remains on examination bronchodilators and steroids and antibiotics. The sputum cultures still negative. Blood cultures negative. No pressors. No other significant events overnight. Family is at the bedside. This is going to be a difficult wean knowing that the patient has advanced COPD with a baseline FEV1 of 30% of predicted. The patient also has chronic hypoxic respiratory failure. He is also known to have obstructive sleep apnea. On 04/02/2018 patient is being seen for a follow-up. Remains on a mechanical ventilator. Remains sedated. He was given a sedation holiday today which went very poorly. The patient aroused quite uncomfortable and he was fighting the respirator. He was completely synchronous. He became tachycardic and tachypneic and subsequently his oxygen saturations dropped and he was not getting his volumes. At that point, the sedation holiday was discontinued and the patient was placed back on sedation. He was given also a short spontaneous breathing trial which ended up being a failure. For now, the patient is an assist-control mode at the rate of 20 with tidal volume of 400 and FiO2 of 40% and PEEP of 5. I kept him on Diprivan. I switched him to ABC plus mode with a Itime of 0.9 seconds. His blood gases from earlier this morning showed a pH of 7.34 with a pCO2 of 53 and pO2 of 91. No significant orotracheal secretions. Peak airway pressures still at 30. No auto PEEP. The chest x-ray from today was no significant abnormalities. It correlates with COPD. All of the lines are in place. The patient is otherwise hemodynamically stable. He is receiving his tube feeds. No hemodynamic instability. He is producing adequate amount of urine output. He is afebrile. Family is at the bedside. Obviously this will be a difficult to wean knowing that his baseline FEV1 is around 30% of predicted and he has chronic hypoxic respiratory failure in addition to obstructive sleep apnea. On 04/03/2018 I'm seeing this patient for a follow-up. The patient remains on a mechanical ventilator. Attempts to switch him to Precedex yesterday failed and the patient was unable to hold his anxiety and agitation. For that reason the patient was started on clonazepam 1 mg twice a day and this morning he was gradually went off Diprivan. After dropping the Diprivan dose down to 20 mics per KG per minute, the patient started having increased anxiety, agitation, restlessness, hypertension, tachypnea, tachycardia, asynchronous with a mechanical ventilator. Based on all this, the attempt was aborted and the patient was placed back on sedation. He remains on a VC plus mode of mechanical ventilation. His rate is at 20 with tidal volume 400 and FiO2 of 40 % with a PEEP of 5. Chest x-ray shows no acute abnormalities and blood gases show a pH of 7.41 with a pCO2 50 and pO2 of 87. Rest of the blood work and electrodes are all within normal limits. He is tolerating his tube feeds. He is at goal for the time being. No edema no signs of any fluid overload. No fever or chills. No respiratory secretions. Had a lengthy discussion with the family and this will be a prolonged and slow wean and I've made recommendations for a PEG and trach probably early next week. We'll consult general surgery regarding a PEG and trach insertion. On 04/04/2018, the patient remains on a mechanical ventilator. We have made adjustments on the patient's sedation. Currently the patient on Versed drip at 8 mg/h and the patient is also on propofol which is down to 20 g per KG per minute. The patient is doing well. Very symptoms with the mechanical ventilator. Still on the same vent setting. No sedation holiday was given as the patient is quite agitated and restless and asynchronous with a mechanical ventilator and he would obviously failed sedation holiday. Note that he does not fully gaining consensual consciousness when he is off the sedation. Otherwise, he remains hemodynamically stable. He remains on a VC plus mode of mechanical ventilation. He is on a tidal volume of 400 with a rate of 20 and an FiO2 of 40% with a PEEP of 5. Chest x-ray findings are as essentially unchanged. The blood gases from today show a pH of 7.38 with a pCO2 of 61 and pO2 of 86. No fever. No chills. Tolerating his tube feeds. The general surgeon was consulted for a PEG and a tracheostomy tube insertion in a.m. On 04/05/2018 the patient remains on a mechanical ventilator. This morning he is on a 30 mg of Versed drip and propofol is running at 50 g per KG per minute. While sedated. The plan is to proceed with a PEG and trach today. He remains an assist-control mode of ventilation with a rate of 20, tidal volume of 400 and FiO2 of 40% with a PEEP of 5. No fever. No chills. The blood gases from today showed a pH of 7.45 with a pCO2 of 55 and pO2 of 86. Potassium level is at 5.7. I discussed this with anesthesiology. They wanted a repeat potassium prior to this patient going and proceeding with his PEG and trach. I gave the patient D50 and insulin and his potassium level needs to be repeated. Otherwise, his current tube feeds on hold. His chest x-ray from today is showing some mild interstitial prominence and ET tube is in a good location. The patient also had a central line which is in good location. He has background COPD. Objective - Vital Signs Vital signs: Vital Signs Temp 98.1 F 04/05/18 12:00 Pulse 84 04/05/18 13:00 Resp 20 04/05/18 13:00 BP 121/80 04/05/18 13:00 Pulse Ox 97 04/05/18 13:00 Intake & Output 04/04/18 04/05/18 04/05/18 18:59 06:59 18:59 Intake Total 941.993 726.195 540.775 Output Total 670 680 405 Balance 271.993 46.195 135.775 Weight 72.5 kg 72.5 kg Intake: IV 340 240 380 Levofloxacin 500Mg-D5w 100 Pmx 500 mg In Dextrose/ Water 1 100ml.bag @ 100 mls/hr IVPB Q24HR [facility] Rx# :[id number] Sodium Chloride 0.9% 1, 240 240 380 000 ml @ 75 mls/hr IV . [id number] [facility] Rx#:[id number] Intake, IV Titration 156.993 311.195 160.775 Amount Midazolam HCl 200 mg In 18.592 69.165 60.775 Sodium Chloride 0.9% 60 ml @ 1 MG/HR 0.5 mls/hr IV .Q24H [facility] Rx#: [id number] Midazolam HCl 50 mg In 58.1 Sodium Chloride 0.9% 40 ml @ 1 MG/HR 1 mls/hr IV .Q24H [facility] Rx#:[id number] Propofol 1,000 mg In 80.301 242.030 100 Empty Bag 1 bag @ Titrate IV .Q0M [facility] Rx#: [id number] Oral 140 35 Tube Feeding 245 140 Other 60 Output: Urine 670 680 405 Other: Voiding Method Indwelling Catheter Indwelling Catheter Indwelling Catheter ABP, PAP, CO, CI - Last Documented Arterial Blood Pressure 133/65 - Exam The patient is calm and comfortable intubated on mechanical ventilator sedated with Diprivan. The patient is synchronous with the mechanical ventilator. No obvious signs of any respiratory distress at this point in time Head exam was generally normal. There was no scleral icterus or corneal arcus. Mucous membranes were moist. Neck was supple and without jugular venous distension, thyromegaly, or carotid bruits. Carotids were easily palpable bilaterally. There was no adenopathy. Orogastric and orotracheal tube are both in place. The patient has a left subclavian triple-lumen catheter in place. Lungs sounds are diminished bilaterally along with some few scattered expiratory wheezes heard throughout the lung joseph and there is pronation of expiratory phase of breathing. Cardiac exam revealed the PMI to be normally situated and sized. The rhythm was regular and no extrasystoles were noted during several minutes of auscultation. The first and second heart sounds were normal and physiologic splitting of the second heart sound was noted. There were no murmurs, rubs, clicks, or gallops. Abdominal exam revealed normal bowel sounds. The abdomen was soft, non-tender, and without masses, organomegaly, or appreciable enlargement of the abdominal aorta. Examination of the extremities revealed easily palpable radial, femoral and pedal pulses. There was no cyanosis, clubbing or edema. The patient has an art line in his right upper extremity Examination of the skin revealed no evidence of significant rashes, suspicious appearing nevi or other concerning lesions. Neurologically the patient is sedated yet responsive to painful stimulation. - Labs CBC & Chem 7: 04/05/18 04:40 04/05/18 04:40 Labs: Abnormal Lab Results - Last 24 Hours (Table) 04/04/18 04/04/18 04/04/18 Range/Units 16:28 20:10 23:28 RBC (4.30-5.90) m/uL Hgb (13.0-17.5) gm/dL Hct (39.0-53.0) % Lymphocytes # (1.0-4.8) k/uL ABG pCO2 (35-45) mmHg ABG HCO3 (21-25) mmol/L ABG Total CO2 (19-24) mmol/L ABG O2 Saturation (94-97) % Potassium (3.5-5.1) mmol/L Carbon Dioxide (22-30) mmol/L BUN (9-20) mg/dL Creatinine (0.66-1.25) mg/dL Glucose (74-99) mg/dL POC Glucose (mg/dL) 160 H 173 H 145 H (75-99) mg/dL Calcium (8.4-10.2) mg/dL Magnesium (1.6-2.3) mg/dL 04/05/18 04/05/18 04/05/18 Range/Units 03:47 04:35 04:40 RBC 3.67 L (4.30-5.90) m/uL Hgb 11.5 L (13.0-17.5) gm/dL Hct 35.5 L (39.0-53.0) % Lymphocytes # 0.2 L (1.0-4.8) k/uL ABG pCO2 55 H (35-45) mmHg ABG HCO3 38 H (21-25) mmol/L ABG Total CO2 39 H (19-24) mmol/L ABG O2 Saturation 97.3 H (94-97) % Potassium (3.5-5.1) mmol/L Carbon Dioxide (22-30) mmol/L BUN (9-20) mg/dL Creatinine (0.66-1.25) mg/dL Glucose (74-99) mg/dL POC Glucose (mg/dL) 146 H (75-99) mg/dL Calcium (8.4-10.2) mg/dL Magnesium (1.6-2.3) mg/dL 04/05/18 04/05/18 04/05/18 Range/Units 04:40 08:03 12:07 RBC (4.30-5.90) m/uL Hgb (13.0-17.5) gm/dL Hct (39.0-53.0) % Lymphocytes # (1.0-4.8) k/uL ABG pCO2 (35-45) mmHg ABG HCO3 (21-25) mmol/L ABG Total CO2 (19-24) mmol/L ABG O2 Saturation (94-97) % Potassium 5.7 H (3.5-5.1) mmol/L Carbon Dioxide 37 H (22-30) mmol/L BUN 41 H (9-20) mg/dL Creatinine 0.63 L (0.66-1.25) mg/dL Glucose 160 H (74-99) mg/dL POC Glucose (mg/dL) 165 H 146 H (75-99) mg/dL Calcium 7.7 L (8.4-10.2) mg/dL Magnesium 3.2 H (1.6-2.3) mg/dL Microbiology - Last 24 Hours (Table) 03/30/18 17:29 Blood Culture - Preliminary Blood No Growth after 120 hours Assessment and Plan Plan: Assessment 1 acute COPD exacerbation secondary to an acute influenza tracheal bronchitis/ respiratory infection. Patient remains intubated on a mechanical ventilator. The patient has been unable to wean off the sedation due to increased agitation, asynchrony with a mechanical ventilator and for now the plan is to proceed with a PEG and trach. It's possible that switching this patient a tracheostomy tube may improve our ability to wean him off the sedation and do a gradual wean. Family was agreeable. The patient is scheduled to undergo an PEG and trach today. Potassium level is at 5.7. We'll repeat the level after treating the hyperkalemia and hopefully will be able to get this patient to the operating room today. He is tube feeds are currently on hold. He remains on assist control mode of ventilation. No sedation holiday was given today. 2 acute on top of chronic hypoxic respiratory failure, secondary to above 3 advanced COPD at baseline with FEV1 of less than 30% of predicted 4 previous hospitalization for COPD exacerbations last one being in January 2018 5 smoker 6 chronic anxiety 7 acute on Chronic hypercapnic respiratory failure secondary to COPD 8 obstructive sleep apnea maintained on CPAP at a pressure of 9 cm of water on outpatient basis 9 enteral feeding for nutritional support Plan Will treat this patient with D50 and insulin and I'm going to give this patient a Kayexalate dose at a later stage in regards to his hyperkalemia. We'll repeat the potassium. The patient may be able to undergo his procedure if the potassium level normalizes. Meanwhile, continue vent support, continue bronchodilators, kept on the IV Solu Medrol to 40 mg every 12 hours, chest x- rays within normal limits and there is no acute abnormalities, no need for any vent changes. Blood gases was noted. We'll continue to follow make further recommendations and I'm hoping that the PEG and trach will be done today and subsequently the patient should be able to gradually wean off the sedation and treated accordingly. Condition is critical. The fibrillation was done in more than 30 minutes including discussion with the family , anesthesiologist and general surgery. Time with Patient: Greater than 30
[2018-04-05] MEDS ORDERED: SODIUM CHLORIDE 0.9% 1,000 ML IV ONE (15:46)
[2018-04-05] MEDS ORDERED: BUPIVACAINE-EPI 0.5%-1:200,000 10 ML VIAL SQ ONE (15:46)
[2018-04-05] MEDS ORDERED: fentaNYL (PF) 50 MCG/ML 2 ML AMP ONE (15:59)
[2018-04-05] MEDS ORDERED: ROCURONIUM BROMIDE 10 MG/ML 10 ML VIAL IV ONE (15:59)
--- NOTE | 2018-04-05 17:39 | P.OP ---
Date of Procedure: 04/05/18 Procedure(s) Performed: PREOPERATIVE DIAGNOSIS: Respiratory failure, malnutrition POSTOPERATIVE DIAGNOSIS: Same PROCEDURE: Tracheostomy, EGD with PEG tube placement SURGEON: Melissa EBL: Minimal ANESTHESIA: General COMPLICATIONS: None OPERATIVE PROCEDURE: Patient was placed in the operative table in the supine position. A shoulder roll was utilized. The neck was prepped and draped in usual sterile fashion. The skin was infiltrated with local anesthesia. A small cervical incision was created using the scalpel. Dissection through the subcutaneous fat and platysma layer took place using electrocautery. The underlying strap muscles were divided in the midline. The thyroid isthmus was divided using electrocautery as well. No bleeding was seen. The trachea was easily identified at this time. The endotracheal tube was advanced and the balloon was reinflated. The patient was preoxygenated with 100% FiO2. The FiO2 was then brought down to room air. Once the end title oxygen level was less than 35 a vertical tracheostomy was created using the electrocautery. This went through the second and third tracheal ring. The patient was again preoxygenated with 100% FiO2. The seal mixing operator was utilized. Carefully the endotracheal tube was withdrawn just proximal to our tracheostomy. The 8- Hungarian Shiley fenestrated tracheostomy catheter was advanced under direct visualization into the trachea. The obturator was inserted. This was then connected to the ventilator. Positive end tidal CO2 was confirmed. The tracheal ties were utilized. The trach was sutured to the skin superiorly using 2 separate 0 silk sutures. The skin was closed using 3-0 Vicryl sutures. At that time it was noted that the patient was not getting the full volume of air through the trach. This was despite the balloon being sufficiently filled. I had a similar situation several weeks ago. I decided to utilize the gastroscope and inspected the inside of the trachea at the tracheostomy site. When I evaluated the fenestrated portion of the trach from above you could clearly see air leaking around the obturator back up into the throat through the fenestrated portion of the Shiley. At that time given the low volumes I decided to replace the fenestrated Shiley with a nonfenestrated catheter. The surgical site was Sterile. The previous sutures were removed. Without difficulty the previous trach was withdrawn and the nonfenestrated Shiley was advanced. The balloon was inflated. Positive end tidal CO2 was again noted. At that time we had full volumes with no leak identified. The skin was closed in a similar fashion and trach ties were again applied. The patient was kept in the supine position on the operating room table. The Olympus gastroscope was inserted into the oropharynx and passed under direct visualization to the region of the duodenum. No obstruction was seen. The pylorus was widely patent. The stomach was carefully inspected. The stomach was fully insufflated with air. The abdominal wall was inspected. The light was seen shining through the abdominal wall in the left upper quadrant. This site was chosen for PEG tube placement. The area was prepped in the usual sterile fashion. A small vertical incision was made using the scalpel. The Seldinger needle was advanced into the lumen of the stomach the wire was advanced. The wire was grasped with an endoscopic snare. The wire was pulled through the oropharynx. The catheter was then threaded over the guidewire and the guidewire and catheter were pulled anteriorly until the hub of the PEG tube catheter was seated against the anterior wall the stomach. The circular bolster was applied and tightened down at 2.5cm. The endoscope was then readvanced into the stomach. There was no evidence of any bleeding and there was appropriate tightness on the bolster. The catheter was cut appropriately. The dual port feeding adapter was applied. DISPOSITION: Stable to ICU
[2018-04-05 17:55] LABS: Glucose,Whole Blood 131 mg/dL (75-99)
[2018-04-05 20:17] LABS: Glucose,Whole Blood 141 mg/dL (75-99)
[2018-04-05] MEDS: methylPREDNISolone SOD SUCCI 40 MG/ML 1 ML VIAL IV SCH (20:52)
[2018-04-05 23:41] LABS: Glucose,Whole Blood 115 mg/dL (75-99)
[2018-04-06] MEDS: INSULIN ASPART (NovoLOG) 100 UNIT/ML VIAL SQ SCH ×6 (00:05→21:03)
[2018-04-06] MEDS: HEPARIN SODIUM,PORCINE 5,000 UNIT/ML 1 ML VIAL SQ SCH ×3 (00:06→16:04)
--- NOTE | 2018-04-06 01:06 | P.PN ---
Subjective Progress Note Date: 04/05/18 Principal diagnosis: Vent dependent respiratory failure This is a 57-year-old male with a history of severe COPD, nicotine dependence, sleep apnea. who presents with worsening shortness of breath and resp distress, which was going on for 3 days, patient thought that he got some kind of infection of from his . He had myalgias and fever or chills. No chest pain. He needed CPAP during the transport. pt got intubated and he is sedated now , he in the ICU, most of the information was taken from staff and medical records. 04/02/2018 patient is being seen for a follow-up. Remains on a mechanical ventilator. Remains sedated. He was given a sedation holiday today which went very poorly. The patient aroused quite uncomfortable and he was fighting the respirator. He was completely synchronous. He became tachycardic and tachypneic and subsequently his oxygen saturations dropped and he was not getting his volumes. At that point, the sedation holiday was discontinued and the patient was placed back on sedation. He was given also a short spontaneous breathing trial which ended up being a failure. For now, the patient is an assist-control mode The chest x-ray from today was no significant abnormalities. It correlates with COPD. All of the lines are in place. The patient is otherwise hemodynamically stable. He is receiving his tube feeds. No hemodynamic instability. He is producing adequate amount of urine output. He is afebrile. Family is at the bedside. Obviously this will be a difficult to wean knowing that his baseline FEV1 is around 30% of predicted and he has chronic hypoxic respiratory failure in addition to obstructive sleep apnea. 04/03/2018 patient seen for a follow-up. The patient remains on a mechanical ventilator. Attempts to switch him to Precedex yesterday failed and the patient was unable to hold his anxiety and agitation. For that reason the patient was started on clonazepam 1 mg twice a day and this morning he was gradually went off Diprivan. After dropping the Diprivan dose down to 20 mics per KG per minute, the patient started having increased anxiety, agitation, restlessness, hypertension, tachypnea, tachycardia, asynchronous with a mechanical ventilator. Based on all this, the attempt was aborted and the patient was placed back on sedation. Chest x-ray shows no acute abnormalities and blood gases show a pH of 7.41 with a pCO2 50 and pO2 of 87. Rest of the blood work and electrodes are all within normal limits. He is tolerating his tube feeds. He is at goal for the time being. No edema no signs of any fluid overload. discussion with the family with recommendations for a PEG and trach probably early next week. We' ll consult general surgery regarding a PEG and trach insertion. 04/05/2018 the patient remains on a mechanical ventilator. This morning he is on a 30 mg of Versed drip and propofol is running at 50 g per KG per minute. While sedated. The plan is to proceed with a PEG and trach today. He remains an assist-control mode of ventilation with a rate of 20, tidal volume of 400 and FiO2 of 40% with a PEEP of 5. No fever. No chills. The blood gases from today showed a pH of 7.45 with a pCO2 of 55 and pO2 of 86. Potassium level is at 5.7; the patient received D50 and insulin and his potassium level needs to be repeated. Otherwise, his current tube feeds on hold. His chest x-ray from today is showing some mild interstitial prominence and ET tube is in a good location. The patient also had a central line which is in good location. He has background COPD. Objective - Vital Signs Vital signs: Vital Signs Temp 98 F 04/05/18 08:00 Pulse 79 04/05/18 08:30 Resp 20 04/05/18 08:30 BP 121/80 04/05/18 08:30 Pulse Ox 98 04/05/18 08:30 Intake & Output 04/04/18 04/05/18 04/05/18 18:59 06:59 18:59 Intake Total 941.993 726.195 40 Output Total 670 680 120 Balance 271.993 46.195 -80 Weight 72.5 kg Intake: IV 340 240 40 Levofloxacin 500Mg-D5w 100 Pmx 500 mg In Dextrose/ Water 1 100ml.bag @ 100 mls/hr IVPB Q24HR [facility] Rx# :[id number] Sodium Chloride 0.9% 1, 240 240 40 000 ml @ 20 mls/hr IV . Q24H [facility] Rx#:[id number] Intake, IV Titration 156.993 311.195 Amount Midazolam HCl 200 mg In 18.592 69.165 Sodium Chloride 0.9% 60 ml @ 1 MG/HR 0.5 mls/hr IV .Q24H [facility] Rx#: [id number] Midazolam HCl 50 mg In 58.1 Sodium Chloride 0.9% 40 ml @ 1 MG/HR 1 mls/hr IV .Q24H [facility] Rx#:[id number] Propofol 1,000 mg In 80.301 242.030 Empty Bag 1 bag @ Titrate IV .Q0M [facility] Rx#: [id number] Oral 140 35 Tube Feeding 245 140 Other 60 Output: Urine 670 680 120 Other: Voiding Method Indwelling Catheter Indwelling Catheter Indwelling Catheter ABP, PAP, CO, CI - Last Documented Arterial Blood Pressure 137/66 - Exam Head exam was generally normal. There was no scleral icterus or corneal arcus. Mucous membranes were moist. Neck was supple and without jugular venous distension, thyromegaly, or carotid bruits. Carotids were easily palpable bilaterally. There was no adenopathy. Orogastric and orotracheal tube are both in place. The patient has a left subclavian triple-lumen catheter in place. Lungs sounds are diminished bilaterally along with some few scattered expiratory wheezes heard throughout the lung joseph and there is pronation of expiratory phase of breathing. Cardiac exam revealed the PMI to be normally situated and sized. The rhythm was regular and no extrasystoles were noted during several minutes of auscultation. The first and second heart sounds were normal and physiologic splitting of the second heart sound was noted. There were no murmurs, rubs, clicks, or gallops. Abdominal exam revealed normal bowel sounds. The abdomen was soft, non-tender, and without masses, organomegaly, or appreciable enlargement of the abdominal aorta. Examination of the extremities revealed easily palpable radial, femoral and pedal pulses. There was no cyanosis, clubbing or edema. The patient has an art line in his right upper extremity Examination of the skin revealed no evidence of significant rashes, suspicious appearing nevi or other concerning lesions. Neurologically the patient is sedated yet responsive to painful stimulation. - Labs CBC & Chem 7: 04/05/18 04:40 04/05/18 14:50 Labs: Abnormal Lab Results - Last 24 Hours (Table) 04/04/18 04/04/18 04/04/18 Range/Units 12:32 16:28 20:10 RBC (4.30-5.90) m/uL Hgb (13.0-17.5) gm/dL Hct (39.0-53.0) % Lymphocytes # (1.0-4.8) k/uL ABG pCO2 (35-45) mmHg ABG HCO3 (21-25) mmol/L ABG Total CO2 (19-24) mmol/L ABG O2 Saturation (94-97) % Potassium (3.5-5.1) mmol/L Carbon Dioxide (22-30) mmol/L BUN (9-20) mg/dL Creatinine (0.66-1.25) mg/dL Glucose (74-99) mg/dL POC Glucose (mg/dL) 160 H 160 H 173 H (75-99) mg/dL Calcium (8.4-10.2) mg/dL Magnesium (1.6-2.3) mg/dL 04/04/18 04/05/18 04/05/18 Range/Units 23:28 03:47 04:35 RBC (4.30-5.90) m/uL Hgb (13.0-17.5) gm/dL Hct (39.0-53.0) % Lymphocytes # (1.0-4.8) k/uL ABG pCO2 55 H (35-45) mmHg ABG HCO3 38 H (21-25) mmol/L ABG Total CO2 39 H (19-24) mmol/L ABG O2 Saturation 97.3 H (94-97) % Potassium (3.5-5.1) mmol/L Carbon Dioxide (22-30) mmol/L BUN (9-20) mg/dL Creatinine (0.66-1.25) mg/dL Glucose (74-99) mg/dL POC Glucose (mg/dL) 145 H 146 H (75-99) mg/dL Calcium (8.4-10.2) mg/dL Magnesium (1.6-2.3) mg/dL 04/05/18 04/05/18 04/05/18 Range/Units 04:40 04:40 08:03 RBC 3.67 L (4.30-5.90) m/uL Hgb 11.5 L (13.0-17.5) gm/dL Hct 35.5 L (39.0-53.0) % Lymphocytes # 0.2 L (1.0-4.8) k/uL ABG pCO2 (35-45) mmHg ABG HCO3 (21-25) mmol/L ABG Total CO2 (19-24) mmol/L ABG O2 Saturation (94-97) % Potassium 5.7 H (3.5-5.1) mmol/L Carbon Dioxide 37 H (22-30) mmol/L BUN 41 H (9-20) mg/dL Creatinine 0.63 L (0.66-1.25) mg/dL Glucose 160 H (74-99) mg/dL POC Glucose (mg/dL) 165 H (75-99) mg/dL Calcium 7.7 L (8.4-10.2) mg/dL Magnesium 3.2 H (1.6-2.3) mg/dL Microbiology - Last 24 Hours (Table) 03/30/18 17:29 Blood Culture - Preliminary Blood No Growth after 120 hours Assessment and Plan Assessment: 1. Acute COPD exacerbation secondary to an acute influenza tracheobronchitis. - No evidence of pneumonia based on the chest x-ray finding; COPD exacerbated related to this viral infection and currently the patient is in respiratory failure and intubated on mechanical ventilator. - Patient remains on nebulized bronchodilators and steroids and systemic steroids; continue with current IV antibiotics; continue with Tamiflu 75 mg every 12 hours - Nutritional support is to be continued with tube feeding 2. Acute on chronic hypoxic/ hypercapnic respiratory failure, secondary to above 3. Advanced COPD; in exacerbation as above 4. Chronic tobacco dependence 5. Chronic anxiety 6. Obstructive sleep apnea maintained on CPAP at a pressure of 9 cm of water on outpatient basis 7. DVT prophylaxis; heparin 5000 units subcu CODE STATUS; full code Time with Patient: Greater than 30
[2018-04-06] MEDS: SODIUM CHLORIDE 0.9% 1,000 ML IV SCH ×2 (03:36→18:03)
[2018-04-06 03:49] LABS: Glucose,Whole Blood 102 mg/dL (75-99)
[2018-04-06 04:00] LABS: Basophils % (A) 0 %; Eosinophils # (A) 0.1 k/uL (0-0.7); Eosinophils % (A) 1 %; HCT 36.2 % (39.0-53.0); HGB 11.7 gm/dL (13.0-17.5); Lymphocytes # (A) 0.5 k/uL (1.0-4.8); Lymphocytes % (A) 9 %; MCH 32.1 pg (25.0-35.0); MCHC 32.4 g/dL (31.0-37.0); Mean Platelet Volume 7.5; Monocytes # (A) 0.5 k/uL (0-1.0); Monocytes % (A) 8 %; Neutrophils % (A) 81 %; Platelet Count 196 k/uL (150-450); RBC 3.66 m/uL (4.30-5.90); RDW 14.1 % (11.5-15.5); WBC 6.2 k/uL (3.8-10.6)
[2018-04-06 04:12] LABS: Anion Gap -2 mmol/L; Blood Urea Nitrogen 40 mg/dL (9-20); Calcium 7.3 mg/dL (8.4-10.2); Carbon Dioxide 36 mmol/L (22-30); Chloride 106 mmol/L (98-107); Glucose 103 mg/dL (74-99); Magnesium 3.2 mg/dL (1.6-2.3); Potassium 5.3 mmol/L (3.5-5.1); Sodium 140 mmol/L (137-145)
[2018-04-06 05:03] LABS: ABG Base Excess 10.8 mmol/L; ABG HCO3 35 mmol/L (21-25); ABG Oxygen Saturation 97.5 % (94-97); ABG PCO2 55 mmHg (35-45); ABG PH 7.42 (7.35-7.45); ABG PO2 94 mmHg (83-108); ABG TCO2 37 mmol/L (19-24)
[2018-04-06] MEDS: IPRATROPIUM-ALBUTEROL 3 ML NEB INHALATION SCH ×4 (07:21→19:31)
[2018-04-06] MEDS: BUDESONIDE 1 MG/2 ML NEBU INHALATION SCH ×2 (07:21→19:32)
[2018-04-06] MEDS: FORMOTEROL FUMARATE 20 MCG/2 ML NEBU INHALATION SCH ×2 (07:34→19:31)
[2018-04-06 08:08] LABS: Glucose,Whole Blood 89 mg/dL (75-99)
[2018-04-06] MEDS: FAMOTIDINE 20 MG/2 ML VIAL IV SCH ×2 (08:19→21:06)
[2018-04-06] MEDS: methylPREDNISolone SOD SUCCI 40 MG/ML 1 ML VIAL IV SCH ×2 (08:19→21:06)
[2018-04-06] MEDS: CHLORHEXIDINE GLUCONATE 15 ML CUP MUCOUS MEM SCH ×2 (08:19→21:03)
--- NOTE | 2018-04-06 08:29 | XR ---
EXAMINATION TYPE: XR chest 1V portable DATE OF EXAM: 04/06/2018 COMPARISON: Prior chest x-ray 04/05/2018 HISTORY: Tracheostomy tube placement TECHNIQUE: Single frontal view of the chest is obtained. FINDINGS: There is been interval removal of endotracheal and orogastric tube. Tracheostomy tube has been placed in the interval and is overlying the tracheal air column. There is no pneumothorax or ple ural effusion. Left subclavian central venous catheter is in place with the distal tip over the super ior vena cava. No pneumothorax or pleural effusion. Cardiac mediastinal silhouette, pulmonary vascula rity and jean carlos are stable. There are cardiac leads. IMPRESSION: Interval tracheostomy tube placement. No evident complication.
[2018-04-06] MEDS ORDERED: MIDAZOLAM HCL 50 MG in SODIUM CHLORIDE 0.9% 40 ML IV SCH (08:30)
[2018-04-06] MEDS: LEVOFLOXACIN 500MG-D5W PMX 500 MG in DEXTROSE/WATER 1 100ML.BAG IVPB SCH (08:42)
[2018-04-06] MEDS: hydrALAZINE HCL 20 MG/ML 1 ML VIAL IV PRN (10:33)
--- NOTE | 2018-04-06 11:43 | P.PN ---
Subjective Progress Note Date: 04/06/18 A 57-year-old male patient with advanced COPD with an FEV1 of less than 30% of predicted and chronic hypoxic respiratory failure with reduction dependent who also has history of obstructive sleep apnea mechanical CPAP therapy. The patient has an AHI of 23 and the patient has been maintained on CPAP therapy at a pressure of 9 cm of water on outpatient basis. In terms of COPD, the patient has been receiving Dulera, theophylline and maintenance 5 mg of prednisone a daily basis. The patient had 2 hospitalizations back in 2018 in the last hospitalization was in January 2018 for an acute on top of chronic hypoxic respiratory failure and COPD exacerbation. The patient was treated and the patient was discharged home. Over the past 24 hours, the patient became acutely ill. His had a rest or checked infection subsequently he got sick and within 24 hours he started having fever and chills and cough and congestion and shortness of breath and for that reason he was brought into the hospital. On route, the patient was placed on BiPAP. The same was done in the emergency department. He checked positive for influenza a and he was started on Tamiflu in addition to bronchodilators and steroids. He continued to be on a BiPAP and later on he failed BiPAP and he had to be intubated and placed on a mechanical ventilator. This morning, the patient is an assist-control mode of ventilation. His tidal volumes of 400 with an FiO2 of 50% with a PEEP of 5 and respiratory rate of 20. His peak air pressure is around and static air pressure of 22. There has been improvement in his acid-base status. The morning blood gas showed a pH of 7.32 with a pCO2 of 55 and pO2 of 172 and this was on FiO2 of 50%. Chest x-rays consistent with COPD and there is no evidence of any pulmonary infiltration or pneumonia. The patient had some diminished urine output and the patient is currently on IV fluids at the rate of 75 mL an hour. No leukocytosis. Renal function is stable. Currently sedated with Diprivan and, comfortable. Hemodynamically stable on no pressors. No reported chest pain. No reported swelling in lower extremities. Family is at the bedside. On today's evaluation of 04/01/2018 I'm seeing this patient for a follow-up. The patient remains sedated, comfortable mechanical ventilator. The patient is a tidal volume of 450 with an FiO2 of 40% and PEEP of 5 and the rate of 20. Peak airway pressures 31 and static pressures around 21. Chest x-ray showing hyperinflation without any acute pulmonary abnormalities or infiltrates. The patient is bronchospastic and wheezy. The patient has no auto PEEP. The patient's blood gases from today showed a pH of 7.35 with a pCO2 of 50 and pO2 of 126. The patient tolerating his tube feeds. The patient is hemodynamically stable. Remains on examination bronchodilators and steroids and antibiotics. The sputum cultures still negative. Blood cultures negative. No pressors. No other significant events overnight. Family is at the bedside. This is going to be a difficult wean knowing that the patient has advanced COPD with a baseline FEV1 of 30% of predicted. The patient also has chronic hypoxic respiratory failure. He is also known to have obstructive sleep apnea. On 04/02/2018 patient is being seen for a follow-up. Remains on a mechanical ventilator. Remains sedated. He was given a sedation holiday today which went very poorly. The patient aroused quite uncomfortable and he was fighting the respirator. He was completely synchronous. He became tachycardic and tachypneic and subsequently his oxygen saturations dropped and he was not getting his volumes. At that point, the sedation holiday was discontinued and the patient was placed back on sedation. He was given also a short spontaneous breathing trial which ended up being a failure. For now, the patient is an assist-control mode at the rate of 20 with tidal volume of 400 and FiO2 of 40% and PEEP of 5. I kept him on Diprivan. I switched him to ABC plus mode with a Itime of 0.9 seconds. His blood gases from earlier this morning showed a pH of 7.34 with a pCO2 of 53 and pO2 of 91. No significant orotracheal secretions. Peak airway pressures still at 30. No auto PEEP. The chest x-ray from today was no significant abnormalities. It correlates with COPD. All of the lines are in place. The patient is otherwise hemodynamically stable. He is receiving his tube feeds. No hemodynamic instability. He is producing adequate amount of urine output. He is afebrile. Family is at the bedside. Obviously this will be a difficult to wean knowing that his baseline FEV1 is around 30% of predicted and he has chronic hypoxic respiratory failure in addition to obstructive sleep apnea. On 04/03/2018 I'm seeing this patient for a follow-up. The patient remains on a mechanical ventilator. Attempts to switch him to Precedex yesterday failed and the patient was unable to hold his anxiety and agitation. For that reason the patient was started on clonazepam 1 mg twice a day and this morning he was gradually went off Diprivan. After dropping the Diprivan dose down to 20 mics per KG per minute, the patient started having increased anxiety, agitation, restlessness, hypertension, tachypnea, tachycardia, asynchronous with a mechanical ventilator. Based on all this, the attempt was aborted and the patient was placed back on sedation. He remains on a VC plus mode of mechanical ventilation. His rate is at 20 with tidal volume 400 and FiO2 of 40 % with a PEEP of 5. Chest x-ray shows no acute abnormalities and blood gases show a pH of 7.41 with a pCO2 50 and pO2 of 87. Rest of the blood work and electrodes are all within normal limits. He is tolerating his tube feeds. He is at goal for the time being. No edema no signs of any fluid overload. No fever or chills. No respiratory secretions. Had a lengthy discussion with the family and this will be a prolonged and slow wean and I've made recommendations for a PEG and trach probably early next week. We'll consult general surgery regarding a PEG and trach insertion. On 04/04/2018, the patient remains on a mechanical ventilator. We have made adjustments on the patient's sedation. Currently the patient on Versed drip at 8 mg/h and the patient is also on propofol which is down to 20 g per KG per minute. The patient is doing well. Very symptoms with the mechanical ventilator. Still on the same vent setting. No sedation holiday was given as the patient is quite agitated and restless and asynchronous with a mechanical ventilator and he would obviously failed sedation holiday. Note that he does not fully gaining consensual consciousness when he is off the sedation. Otherwise, he remains hemodynamically stable. He remains on a VC plus mode of mechanical ventilation. He is on a tidal volume of 400 with a rate of 20 and an FiO2 of 40% with a PEEP of 5. Chest x-ray findings are as essentially unchanged. The blood gases from today show a pH of 7.38 with a pCO2 of 61 and pO2 of 86. No fever. No chills. Tolerating his tube feeds. The general surgeon was consulted for a PEG and a tracheostomy tube insertion in a.m. On 04/05/2018 the patient remains on a mechanical ventilator. This morning he is on a 30 mg of Versed drip and propofol is running at 50 g per KG per minute. While sedated. The plan is to proceed with a PEG and trach today. He remains an assist-control mode of ventilation with a rate of 20, tidal volume of 400 and FiO2 of 40% with a PEEP of 5. No fever. No chills. The blood gases from today showed a pH of 7.45 with a pCO2 of 55 and pO2 of 86. Potassium level is at 5.7. I discussed this with anesthesiology. They wanted a repeat potassium prior to this patient going and proceeding with his PEG and trach. I gave the patient D50 and insulin and his potassium level needs to be repeated. Otherwise, his current tube feeds on hold. His chest x-ray from today is showing some mild interstitial prominence and ET tube is in a good location. The patient also had a central line which is in good location. He has background COPD. On 04/06/2018 I'm seeing this patient for a follow-up. The patient underwent a successful PEG and trach insertion. The patient has a #[address] trache[address] tube in [address]. PEG tube is also in place. He is doing well. He is on the same vent setting. His peak airway pressures around 26. He is on VC plus mode with tidal volume of 400 with rate of 20 and FiO2 of 40% and PEEP of 5. Chest x -ray findings are essentially stable. Tracheostomy tube is in a good location. Hemodynamically stable. The patient is producing adequate amount of urine output. He is on DuoNeb neb last treatment [id number]. He is on a combination of Pulmicort and this was and Perforomist twice a day. He is on IV Solu-Medrol which was tapered down to 40 mg every 12 hours. Tube feeds will be started today. We are also going to gradually wean off his sedation and assess his underlying mentation. No other significant events otherwise. The surgical procedures went without any additional complications. Objective - Vital Signs Vital signs: Vital Signs Temp 98 F 04/06/18 08:00 Pulse 98 04/06/18 11:37 Resp 30 H 04/06/18 11:00 BP 121/80 04/06/18 11:00 Pulse Ox 96 02/26/19 11:00 Intake & Output 04/05/18 04/06/18 04/06/18 18:59 06:59 18:59 Intake Total 1590.775 975 400 Output Total 580 658 200 Balance 1010.775 317 200 Weight 72.5 kg 72.5 kg Intake: IV 1330 975 300 Sodium Chloride 0.9% 1, 530 975 300 000 ml @ 75 mls/hr IV . [id number] [facility] Rx#:[id number] Intake, IV Titration 260.775 100 Amount Levofloxacin 500Mg-D5w 100 Pmx 500 mg In Dextrose/ Water 1 100ml.bag @ 100 mls/hr IVPB Q24HR [facility] Rx# :[id number] Midazolam HCl 200 mg In 60.775 Sodium Chloride 0.9% 60 ml @ 1 MG/HR 0.5 mls/hr IV .Q24H [facility] Rx#: [id number] Propofol 1,000 mg In 200 Empty Bag 1 bag @ Titrate IV .Q0M [facility] Rx#: [id number] Output: Urine 570 658 200 Estimated Blood Loss 10 Other: Voiding Method Indwelling Catheter Indwelling Catheter Indwelling Catheter ABP, PAP, CO, CI - Last Documented Arterial Blood Pressure 168/70 - Exam The patient is calm and comfortable intubated on mechanical ventilator sedated with Diprivan. The patient is synchronous with the mechanical ventilator. No obvious signs of any respiratory distress at this point in time Head exam was generally normal. There was no scleral icterus or corneal arcus. Mucous membranes were moist. Neck was supple and without jugular venous distension, thyromegaly, or carotid bruits. Carotids were easily palpable bilaterally. There was no adenopathy. The patient has a left subclavian triple-lumen catheter in place. The patient has a #88 [address] tracheostomy tube in place which is nonfenestrated uncuffed. Lungs sounds are diminished bilaterally along with some few scattered expiratory wheezes heard throughout the lung joseph and there is pronation of expiratory phase of breathing. Cardiac exam revealed the PMI to be normally situated and sized. The rhythm was regular and no extrasystoles were noted during several minutes of auscultation. The first and second heart sounds were normal and physiologic splitting of the second heart sound was noted. There were no murmurs, rubs, clicks, or gallops. Abdominal exam revealed normal bowel sounds. The abdomen was soft, non-tender, and without masses, organomegaly, or appreciable enlargement of the abdominal aorta. The PEG tube site is dry clean and intact. Examination of the extremities revealed easily palpable radial, femoral and pedal pulses. There was no cyanosis, clubbing or edema. The patient has an art line in his right upper extremity Examination of the skin revealed no evidence of significant rashes, suspicious appearing nevi or other concerning lesions. Neurologically the patient is sedated yet responsive to painful stimulation. - Labs CBC & Chem 7: 04/06/18 03:49 04/06/18 03:49 Labs: Abnormal Lab Results - Last 24 Hours (Table) 04/05/18 04/05/18 04/05/18 Range/Units 12:07 17:54 20:15 RBC (4.30-5.90) m/uL Hgb (13.0-17.5) gm/dL Hct (39.0-53.0) % Lymphocytes # (1.0-4.8) k/uL ABG pCO2 (35-45) mmHg ABG HCO3 (21-25) mmol/L ABG Total CO2 (19-24) mmol/L ABG O2 Saturation (94-97) % Potassium (3.5-5.1) mmol/L Carbon Dioxide (22-30) mmol/L BUN (9-20) mg/dL Creatinine (0.66-1.25) mg/dL Glucose (74-99) mg/dL POC Glucose (mg/dL) 146 H 131 H 141 H (75-99) mg/dL Calcium (8.4-10.2) mg/dL Magnesium (1.6-2.3) mg/dL 04/05/18 04/06/18 04/06/18 Range/Units 23:40 03:47 03:49 RBC 3.66 L (4.30-5.90) m/uL Hgb 11.7 L (13.0-17.5) gm/dL Hct 36.2 L (39.0-53.0) % Lymphocytes # 0.5 L (1.0-4.8) k/uL ABG pCO2 (35-45) mmHg ABG HCO3 (21-25) mmol/L ABG Total CO2 (19-24) mmol/L ABG O2 Saturation (94-97) % Potassium (3.5-5.1) mmol/L Carbon Dioxide (22-30) mmol/L BUN (9-20) mg/dL Creatinine (0.66-1.25) mg/dL Glucose (74-99) mg/dL POC Glucose (mg/dL) 115 H 102 H (75-99) mg/dL Calcium (8.4-10.2) mg/dL Magnesium (1.6-2.3) mg/dL 04/06/18 04/06/18 Range/Units 03:49 04:58 RBC (4.30-5.90) m/uL Hgb (13.0-17.5) gm/dL Hct (39.0-53.0) % Lymphocytes # (1.0-4.8) k/uL ABG pCO2 55 H (35-45) mmHg ABG HCO3 35 H (21-25) mmol/L ABG Total CO2 37 H (19-24) mmol/L ABG O2 Saturation 97.5 H (94-97) % Potassium 5.3 H (3.5-5.1) mmol/L Carbon Dioxide 36 H (22-30) mmol/L BUN 40 H (9-20) mg/dL Creatinine 0.59 L (0.66-1.25) mg/dL Glucose 103 H (74-99) mg/dL POC Glucose (mg/dL) (75-99) mg/dL Calcium 7.3 L (8.4-10.2) mg/dL Magnesium 3.2 H (1.6-2.3) mg/dL Microbiology - Last 24 Hours (Table) 03/30/18 17:29 Blood Culture - Final Blood No Growth after 144 hours Assessment and Plan Plan: Assessment 1 acute COPD exacerbation secondary to an acute influenza tracheal bronchitis/ respiratory infection. The patient failed to wean throughout conventional methods. The prom was that the patient was not able to tolerate 2, sedation as the patient was becoming hypertensive, tachypneic, tachycardic, asynchronous and this was occurring while he was not fully regaining his cognition. He was given a PEG and trach. He is on a combination of Diprivan and Versed and without an the process of getting him weaned off the sedation. He also has effective in place for now. 2 acute on top of chronic hypoxic respiratory failure, secondary to above 3 advanced COPD at baseline with FEV1 of less than 30% of predicted 4 previous hospitalization for COPD exacerbations last one being in January 2018 5 smoker 6 chronic anxiety 7 acute on Chronic hypercapnic respiratory failure secondary to COPD 8 obstructive sleep apnea maintained on CPAP at a pressure of 9 cm of water on outpatient basis 9 enteral feeding for nutritional support Plan The patient on Versed drip at 10 mg an hour. Gradually wean off the propofol. Keep the Versed on board. I'm wondering whether the patient has history of alcoholism and he has a component of delirium, thickening the salt process. He is sick estimated to was then inserted without any major difficulties. The patient will be kept on the same vent settings. Would initiate tube feeds for now. We'll gradually advance to goal. He is on the appropriate bronchodilator regimen. He is on Levaquin and he is also on IV Solu Medrol 40 mg every 12 hours and the Solu Medrol was weaned off yesterday. No other significant issues otherwise for now. We'll continue to follow make further recommendations based on her progress. Family has been updated. This is a critically care evaluation that was done more than 30 minutes. Time with Patient: Greater than 30
[2018-04-06] MEDS: MIDAZOLAM HCL 200 MG in SODIUM CHLORIDE 0.9% 60 ML IV SCH (11:50)
[2018-04-06] MEDS: HYDROmorphone 1 MG/ML 1 ML SYRINGE IVP PRN ×3 (11:58→21:04)
[2018-04-06 12:08] LABS: Glucose,Whole Blood 113 mg/dL (75-99)
[2018-04-06] MEDS: PROPOFOL 1,000 MG in EMPTY BAG 1 BAG IV SCH (13:03)
[2018-04-06 16:29] LABS: Glucose,Whole Blood 130 mg/dL (75-99)
--- NOTE | 2018-04-06 16:56 | P.PN ---
Subjective Progress Note Date: 04/06/18 Principal diagnosis: Respiratory failure Patient stable on the ventilator. No issues related to the tracheostomy or the PEG tube. Tube feeds at 20 mL per hour. Objective - Vital Signs Vital signs: Vital Signs Temp 98.2 F 04/06/18 16:00 Pulse 87 04/06/18 16:30 Resp 20 04/06/18 16:30 BP 121/80 04/06/18 14:30 Pulse Ox 98 04/06/18 16:30 Intake & Output 04/05/18 04/06/18 04/06/18 18:59 06:59 18:59 Intake Total 1590.775 975 840 Output Total 580 658 460 Balance 1010.775 317 380 Weight 72.5 kg 72.5 kg Intake: IV 1330 975 600 Sodium Chloride 0.9% 1, 530 975 600 000 ml @ 75 mls/hr IV . [id number] [facility] Rx#:[id number] Intake, IV Titration 260.775 200 Amount Levofloxacin 500Mg-D5w 100 Pmx 500 mg In Dextrose/ Water 1 100ml.bag @ 100 mls/hr IVPB Q24HR [facility] Rx# :[id number] Midazolam HCl 200 mg In 60.775 Sodium Chloride 0.9% 60 ml @ 1 MG/HR 0.5 mls/hr IV .Q24H [facility] Rx#: [id number] Propofol 1,000 mg In 200 100 Empty Bag 1 bag @ Titrate IV .Q0M [facility] Rx#: [id number] Tube Feeding 40 Output: Urine 570 658 460 Estimated Blood Loss 10 Other: Voiding Method Indwelling Catheter Indwelling Catheter Indwelling Catheter ABP, PAP, CO, CI - Last Documented Arterial Blood Pressure 154/73 - Exam Tracheostomy site and PEG tube site without hematoma or erythema, nontender - Labs CBC & Chem 7: 04/06/18 03:49 04/06/18 03:49 Labs: Abnormal Lab Results - Last 24 Hours (Table) 04/05/18 04/05/18 04/05/18 Range/Units 17:54 20:15 23:40 RBC (4.30-5.90) m/uL Hgb (13.0-17.5) gm/dL Hct (39.0-53.0) % Lymphocytes # (1.0-4.8) k/uL ABG pCO2 (35-45) mmHg ABG HCO3 (21-25) mmol/L ABG Total CO2 (19-24) mmol/L ABG O2 Saturation (94-97) % Potassium (3.5-5.1) mmol/L Carbon Dioxide (22-30) mmol/L BUN (9-20) mg/dL Creatinine (0.66-1.25) mg/dL Glucose (74-99) mg/dL POC Glucose (mg/dL) 131 H 141 H 115 H (75-99) mg/dL Calcium (8.4-10.2) mg/dL Magnesium (1.6-2.3) mg/dL 04/06/18 04/06/18 04/06/18 Range/Units 03:47 03:49 03:49 RBC 3.66 L (4.30-5.90) m/uL Hgb 11.7 L (13.0-17.5) gm/dL Hct 36.2 L (39.0-53.0) % Lymphocytes # 0.5 L (1.0-4.8) k/uL ABG pCO2 (35-45) mmHg ABG HCO3 (21-25) mmol/L ABG Total CO2 (19-24) mmol/L ABG O2 Saturation (94-97) % Potassium 5.3 H (3.5-5.1) mmol/L Carbon Dioxide 36 H (22-30) mmol/L BUN 40 H (9-20) mg/dL Creatinine 0.59 L (0.66-1.25) mg/dL Glucose 103 H (74-99) mg/dL POC Glucose (mg/dL) 102 H (75-99) mg/dL Calcium 7.3 L (8.4-10.2) mg/dL Magnesium 3.2 H (1.6-2.3) mg/dL 04/06/18 04/06/18 04/06/18 Range/Units 04:58 12:06 16:27 RBC (4.30-5.90) m/uL Hgb (13.0-17.5) gm/dL Hct (39.0-53.0) % Lymphocytes # (1.0-4.8) k/uL ABG pCO2 55 H (35-45) mmHg ABG HCO3 35 H (21-25) mmol/L ABG Total CO2 37 H (19-24) mmol/L ABG O2 Saturation 97.5 H (94-97) % Potassium (3.5-5.1) mmol/L Carbon Dioxide (22-30) mmol/L BUN (9-20) mg/dL Creatinine (0.66-1.25) mg/dL Glucose (74-99) mg/dL POC Glucose (mg/dL) 113 H 130 H (75-99) mg/dL Calcium (8.4-10.2) mg/dL Magnesium (1.6-2.3) mg/dL Microbiology - Last 24 Hours (Table) 03/30/18 17:29 Blood Culture - Final Blood No Growth after 144 hours Assessment and Plan (1) Acute respiratory failure Narrative/Plan: Continue weaning trials. Continue gradually advancing tube feeds. We'll follow. Current Visit: No Status: Acute Code(s): J96.00 - ACUTE RESPIRATORY FAILURE , UNSP W HYPOXIA OR HYPERCAPNIA SNOMED Code(s): 73483038
--- NOTE | 2018-04-06 18:39 | P.PN ---
Subjective This is a 57-year-old male with a history of severe COPD, nicotine dependence, sleep apnea. who presents with worsening shortness of breath and resp distress, which was going on for 3 days, patient thought that he got some kind of infection of from his . He had myalgias and fever or chills. No chest pain. He needed CPAP during the transport. pt got intubated and he is sedated now , he in the ICU, most of the information was taken from staff and medical records. He came yesterday with respiratory distress with respiratory rate above 30 at times, systolic blood pressure was 120-150s, this morning 95/70. CBC was unremarkable. ABG showing retaining CO2 with acidemia and acidosis. Potassium 5.2, creatinine 0.5. Magnesium 2.5. Chest x-ray, no acute process per Radiologist. EKG shows sinus tachycardia with QTC 422. rate at 133. influenza attesting back positive. 04/01/2018 Patient still remains in the ICU, he is intubated. Vitals are acceptable. CBC and BMP were reviewed with no significant abnormality and sugar is controlled. Culture shows no growth. Chest x-ray: COPD. Patient is been followed up by pulmonary, critical care team patient is status post PEG tube and tracheostomy. Pulmonary team are planning to wean of his sedation. Objective - Vital Signs Vital signs: Vital Signs Temp 98.2 F 04/06/18 16:00 Pulse 87 04/06/18 16:30 Resp 20 04/06/18 16:30 BP 121/80 04/06/18 14:30 Pulse Ox 98 04/06/18 16:30 Intake & Output 04/05/18 04/06/18 04/06/18 18:59 06:59 18:59 Intake Total 1590.010 110 2385 Output Total 580 658 630 Balance 1010.775 317 575 Weight 72.5 kg 72.5 kg Intake: IV 1330 975 825 Sodium Chloride 0.9% 1, 530 975 825 000 ml @ 75 mls/hr IV . [id number] [facility] Rx#:[id number] Intake, IV Titration 260.775 200 Amount Levofloxacin 500Mg-D5w 100 Pmx 500 mg In Dextrose/ Water 1 100ml.bag @ 100 mls/hr IVPB Q24HR [facility] Rx# :[id number] Midazolam HCl 200 mg In 60.775 Sodium Chloride 0.9% 60 ml @ 1 MG/HR 0.5 mls/hr IV .Q24H [facility] Rx#: [id number] Propofol 1,000 mg In 200 100 Empty Bag 1 bag @ Titrate IV .Q0M [facility] Rx#: [id number] Tube Feeding 180 Output: Urine 570 658 630 Estimated Blood Loss 10 Other: Voiding Method Indwelling Catheter Indwelling Catheter Indwelling Catheter ABP, PAP, CO, CI - Last Documented Arterial Blood Pressure 154/73 - Exam GENERAL: Patient is sedated, not responsive HEENT: Pupils are round and equally reacting to light. EOMI. No scleral icterus. No conjunctival pallor. Normocephalic, atraumatic. No pharyngeal erythema. No -thyromegaly. Tracheostomy in Place CARDIOVASCULAR: S1 and S2 present. No murmurs, rubs, or gallops. PULMONARY: Chest is clear to auscultation, no wheezing or crackles. -ABDOMEN: Soft, nontender, nondistended, normoactive bowel sounds. No palpable organomegaly. Status post PEG placement MUSCULOSKELETAL: No joint swelling or deformity. EXTREMITIES: No cyanosis, clubbing, or pedal edema. NEUROLOGICAL: Gross neurological examination did not reveal any focal deficits. SKIN: No rashes. - Labs CBC & Chem 7: 04/06/18 03:49 04/06/18 03:49 Labs: Abnormal Lab Results - Last 24 Hours (Table) 04/05/18 04/05/18 04/06/18 Range/Units 20:15 23:40 03:47 RBC (4.30-5.90) m/uL Hgb (13.0-17.5) gm/dL Hct (39.0-53.0) % Lymphocytes # (1.0-4.8) k/uL ABG pCO2 (35-45) mmHg ABG HCO3 (21-25) mmol/L ABG Total CO2 (19-24) mmol/L ABG O2 Saturation (94-97) % Potassium (3.5-5.1) mmol/L Carbon Dioxide (22-30) mmol/L BUN (9-20) mg/dL Creatinine (0.66-1.25) mg/dL Glucose (74-99) mg/dL POC Glucose (mg/dL) 141 H 115 H 102 H (75-99) mg/dL Calcium (8.4-10.2) mg/dL Magnesium (1.6-2.3) mg/dL 04/06/18 04/06/18 04/06/18 Range/Units 03:49 03:49 04:58 RBC 3.66 L (4.30-5.90) m/uL Hgb 11.7 L (13.0-17.5) gm/dL Hct 36.2 L (39.0-53.0) % Lymphocytes # 0.5 L (1.0-4.8) k/uL ABG pCO2 55 H (35-45) mmHg ABG HCO3 35 H (21-25) mmol/L ABG Total CO2 37 H (19-24) mmol/L ABG O2 Saturation 97.5 H (94-97) % Potassium 5.3 H (3.5-5.1) mmol/L Carbon Dioxide 36 H (22-30) mmol/L BUN 40 H (9-20) mg/dL Creatinine 0.59 L (0.66-1.25) mg/dL Glucose 103 H (74-99) mg/dL POC Glucose (mg/dL) (75-99) mg/dL Calcium 7.3 L (8.4-10.2) mg/dL Magnesium 3.2 H (1.6-2.3) mg/dL 04/06/18 04/06/18 Range/Units 12:06 16:27 RBC (4.30-5.90) m/uL Hgb (13.0-17.5) gm/dL Hct (39.0-53.0) % Lymphocytes # (1.0-4.8) k/uL ABG pCO2 (35-45) mmHg ABG HCO3 (21-25) mmol/L ABG Total CO2 (19-24) mmol/L ABG O2 Saturation (94-97) % Potassium (3.5-5.1) mmol/L Carbon Dioxide (22-30) mmol/L BUN (9-20) mg/dL Creatinine (0.66-1.25) mg/dL Glucose (74-99) mg/dL POC Glucose (mg/dL) 113 H 130 H (75-99) mg/dL Calcium (8.4-10.2) mg/dL Magnesium (1.6-2.3) mg/dL Microbiology - Last 24 Hours (Table) 03/30/18 17:29 Blood Culture - Final Blood No Growth after 144 hours Assessment and Plan Assessment: -Acute hypoxemic and hypercapnic respiratory failure needed intubation -Status post Acute influenza infection -Acute severe exacerbation COPD with acute purulent tracheobronchitis -Acute on chronic hypoxic respiratory failure -Ongoing nicotine dependence -Obstructive sleep apnea, wears BiPAP at home Plan: This is a pleasant 57 years old male who presents with severe COPD exacerbation and influenza a. Patient was placed in the critical care unit on admission. Pulmonary team are following the patient, continue with present treatment, steroids, oxygen therapy. Patient finished his antibiotic course. Labs and medication were reviewed.. Continue same treatment. Continue with symptomatic treatment. Resume home medication. Monitor lytes and vitals. DVT and GI prophylaxis. Further recommendations of the clinical course of the patient DVT prophylaxis: Subcutaneous heparin GI Prophylaxis: Pepcid Prognosis is guarded
[2018-04-06 21:04] LABS: Glucose,Whole Blood 107 mg/dL (75-99)
[2018-04-06 23:47] LABS: Glucose,Whole Blood 119 mg/dL (75-99)
[2018-04-07] MEDS: HYDROmorphone 1 MG/ML 1 ML SYRINGE IVP PRN ×5 (00:05→20:21)
[2018-04-07] MEDS: INSULIN ASPART (NovoLOG) 100 UNIT/ML VIAL SQ SCH ×7 (00:19→21:10)
[2018-04-07] MEDS: HEPARIN SODIUM,PORCINE 5,000 UNIT/ML 1 ML VIAL SQ SCH ×4 (00:19→23:22)
[2018-04-07 04:37] LABS: Glucose,Whole Blood 142 mg/dL (75-99)
[2018-04-07 04:42] LABS: Basophils % (A) 0 %; Eosinophils # (A) 0.1 k/uL (0-0.7); Eosinophils % (A) 1 %; HCT 37.6 % (39.0-53.0); HGB 11.6 gm/dL (13.0-17.5); Lymphocytes # (A) 0.5 k/uL (1.0-4.8); Lymphocytes % (A) 6 %; MCH 30.6 pg (25.0-35.0); MCHC 30.9 g/dL (31.0-37.0); MCV 99.2 fL (80.0-100.0); Mean Platelet Volume 7.8; Monocytes # (A) 0.4 k/uL (0-1.0); Monocytes % (A) 5 %; Neutrophils # (A) 6.5 k/uL (1.3-7.7); Neutrophils % (A) 86 %; Platelet Count 202 k/uL (150-450); RBC 3.79 m/uL (4.30-5.90); RDW 14.1 % (11.5-15.5); WBC 7.6 k/uL (3.8-10.6)
[2018-04-07 04:48] LABS: ABG Base Excess 9.9 mmol/L; ABG HCO3 35 mmol/L (21-25); ABG Oxygen Saturation 97.1 % (94-97); ABG PCO2 57 mmHg (35-45); ABG PO2 89 mmHg (83-108); ABG TCO2 37 mmol/L (19-24)
[2018-04-07 04:51] LABS: Anion Gap 0 mmol/L; Blood Urea Nitrogen 36 mg/dL (9-20); Calcium 7.5 mg/dL (8.4-10.2); Carbon Dioxide 35 mmol/L (22-30); Chloride 106 mmol/L (98-107); Glucose 143 mg/dL (74-99); Magnesium 2.8 mg/dL (1.6-2.3); Potassium 5.4 mmol/L (3.5-5.1); Sodium 141 mmol/L (137-145)
[2018-04-07] MEDS: SODIUM CHLORIDE 0.9% 1,000 ML IV SCH ×2 (05:03→17:39)
[2018-04-07] MEDS: FORMOTEROL FUMARATE 20 MCG/2 ML NEBU INHALATION SCH ×2 (07:24→19:28)
[2018-04-07] MEDS: IPRATROPIUM-ALBUTEROL 3 ML NEB INHALATION SCH ×4 (07:24→19:28)
[2018-04-07] MEDS: BUDESONIDE 1 MG/2 ML NEBU INHALATION SCH ×2 (07:24→19:28)
[2018-04-07] MEDS: FAMOTIDINE 20 MG/2 ML VIAL IV SCH ×2 (08:25→20:21)
[2018-04-07] MEDS: methylPREDNISolone SOD SUCCI 40 MG/ML 1 ML VIAL IV SCH ×2 (08:25→22:10)
[2018-04-07] MEDS: LEVOFLOXACIN 500MG-D5W PMX 500 MG in DEXTROSE/WATER 1 100ML.BAG IVPB SCH (08:25)
[2018-04-07] MEDS: CHLORHEXIDINE GLUCONATE 15 ML CUP MUCOUS MEM SCH ×2 (08:26→20:21)
[2018-04-07 08:38] LABS: Glucose,Whole Blood 105 mg/dL (75-99)
--- NOTE | 2018-04-07 09:18 | XR ---
EXAMINATION TYPE: XR chest 1V DATE OF EXAM: 04/07/2018 COMPARISON: Prior chest x-ray 04/06/2018 HISTORY: Shortness of breath TECHNIQUE: Single frontal view of the chest is obtained. FINDINGS: Tracheostomy tube, left subclavian central venous catheter, cardiac leads are stable. No e vident airspace disease, pneumothorax, or pleural effusion. Right costophrenic angle is not included on exam. Cardiomediastinal silhouette, pulmonary vascularity and jean carlos are unchanged. IMPRESSION: Stable exam. No acute abnormality.
--- NOTE | 2018-04-07 10:16 | P.PN ---
Subjective Progress Note Date: 04/07/18 Principal diagnosis: Respiratory failure Patient stable on vent. Sedation is being weaned. Tolerating tube feeds. Objective - Vital Signs Vital signs: Vital Signs Temp 98.2 F 04/07/18 08:00 Pulse 94 04/07/18 10:00 Resp 14 04/07/18 10:00 BP 121/80 04/07/18 10:00 Pulse Ox 97 04/07/18 10:00 Intake & Output 04/06/18 04/07/18 04/07/18 18:59 06:59 18:59 Intake Total 1320 1302.25 645 Output Total 700 965 305 Balance 620 337.25 340 Weight 76.2 kg Intake: IV 900 825 400 Levofloxacin 500Mg-D5w 100 Pmx 500 mg In Dextrose/ Water 1 100ml.bag @ 100 mls/hr IVPB Q24HR [facility] Rx# :[id number] Sodium Chloride 0.9% 1, 900 825 300 000 ml @ 75 mls/hr IV . [id number] [facility] Rx#:[id number] Intake, IV Titration 200 52.25 Amount Levofloxacin 500Mg-D5w 100 Pmx 500 mg In Dextrose/ Water 1 100ml.bag @ 100 mls/hr IVPB Q24HR [facility] Rx# :[id number] Midazolam HCl 200 mg In 52.25 Sodium Chloride 0.9% 60 ml @ 1 MG/HR 0.5 mls/hr IV .Q24H [facility] Rx#: [id number] Propofol 1,000 mg In 100 Empty Bag 1 bag @ Titrate IV .Q0M [facility] Rx#: [id number] Tube Feeding 220 365 215 Other 60 30 Output: Urine 700 965 305 Other: Voiding Method Indwelling Catheter Indwelling Catheter ABP, PAP, CO, CI - Last Documented Arterial Blood Pressure 167/79 - Exam Abdomen: Soft, nondistended, incision clean and dry at PEG tube, trach without bleeding - Labs CBC & Chem 7: 04/07/18 04:30 04/07/18 04:30 Labs: Abnormal Lab Results - Last 24 Hours (Table) 04/06/18 04/06/18 04/06/18 Range/Units 12:06 16:27 21:03 RBC (4.30-5.90) m/uL Hgb (13.0-17.5) gm/dL Hct (39.0-53.0) % MCHC (31.0-37.0) g/dL Lymphocytes # (1.0-4.8) k/uL ABG pCO2 (35-45) mmHg ABG HCO3 (21-25) mmol/L ABG Total CO2 (19-24) mmol/L ABG O2 Saturation (94-97) % Potassium (3.5-5.1) mmol/L Carbon Dioxide (22-30) mmol/L BUN (9-20) mg/dL Creatinine (0.66-1.25) mg/dL Glucose (74-99) mg/dL POC Glucose (mg/dL) 113 H 130 H 107 H (75-99) mg/dL Calcium (8.4-10.2) mg/dL Magnesium (1.6-2.3) mg/dL 04/06/18 04/07/18 04/07/18 Range/Units 23:45 04:30 04:30 RBC 3.79 L (4.30-5.90) m/uL Hgb 11.6 L (13.0-17.5) gm/dL Hct 37.6 L (39.0-53.0) % MCHC 30.9 L (31.0-37.0) g/dL Lymphocytes # 0.5 L (1.0-4.8) k/uL ABG pCO2 (35-45) mmHg ABG HCO3 (21-25) mmol/L ABG Total CO2 (19-24) mmol/L ABG O2 Saturation (94-97) % Potassium 5.4 H (3.5-5.1) mmol/L Carbon Dioxide 35 H (22-30) mmol/L BUN 36 H (9-20) mg/dL Creatinine 0.59 L (0.66-1.25) mg/dL Glucose 143 H (74-99) mg/dL POC Glucose (mg/dL) 119 H (75-99) mg/dL Calcium 7.5 L (8.4-10.2) mg/dL Magnesium 2.8 H (1.6-2.3) mg/dL 04/07/18 04/07/18 04/07/18 Range/Units 04:35 04:41 08:37 RBC (4.30-5.90) m/uL Hgb (13.0-17.5) gm/dL Hct (39.0-53.0) % MCHC (31.0-37.0) g/dL Lymphocytes # (1.0-4.8) k/uL ABG pCO2 57 H (35-45) mmHg ABG HCO3 35 H (21-25) mmol/L ABG Total CO2 37 H (19-24) mmol/L ABG O2 Saturation 97.1 H (94-97) % Potassium (3.5-5.1) mmol/L Carbon Dioxide (22-30) mmol/L BUN (9-20) mg/dL Creatinine (0.66-1.25) mg/dL Glucose (74-99) mg/dL POC Glucose (mg/dL) 142 H 105 H (75-99) mg/dL Calcium (8.4-10.2) mg/dL Magnesium (1.6-2.3) mg/dL Assessment and Plan (1) Acute respiratory failure Narrative/Plan: Continue advancing tube feeds as tolerated. Continue weaning from ventilator. Will follow intermittently at this point. Current Visit: No Status: Acute Code(s): J96.00 - ACUTE RESPIRATORY FAILURE , UNSP W HYPOXIA OR HYPERCAPNIA SNOMED Code(s): 91265188
[2018-04-07] MEDS: MIDAZOLAM HCL 200 MG in SODIUM CHLORIDE 0.9% 60 ML IV SCH (10:20)
[2018-04-07] MEDS: cloNIDine HCL 0.2 MG TAB PO SCH ×3 (11:26→23:15)
[2018-04-07 11:48] LABS: Glucose,Whole Blood 105 mg/dL (75-99)
[2018-04-07] MEDS: hydrALAZINE HCL 20 MG/ML 1 ML VIAL IV PRN (13:17)
--- NOTE | 2018-04-07 15:53 | P.PN ---
Subjective This is a 57-year-old male with a history of severe COPD, nicotine dependence, sleep apnea. who presents with worsening shortness of breath and resp distress, which was going on for 3 days, patient thought that he got some kind of infection of from his . He had myalgias and fever or chills. No chest pain. He needed CPAP during the transport. pt got intubated and he is sedated now , he in the ICU, most of the information was taken from staff and medical records. He came yesterday with respiratory distress with respiratory rate above 30 at times, systolic blood pressure was 120-150s, this morning 95/70. CBC was unremarkable. ABG showing retaining CO2 with acidemia and acidosis. Potassium 5.2, creatinine 0.5. Magnesium 2.5. Chest x-ray, no acute process per Radiologist. EKG shows sinus tachycardia with QTC 422. rate at 133. influenza attesting back positive. 04/06/2018 Patient still remains in the ICU, he is intubated. Vitals are acceptable. CBC and BMP were reviewed with no significant abnormality and sugar is controlled. Culture shows no growth. Chest x-ray: COPD. Patient is been followed up by pulmonary, critical care team patient is status post PEG tube and tracheostomy. Pulmonary team are planning to wean of his sedation. 04/07/2018 Patient status post tracheostomy, still on vent dependent. Patient opened eyes to verbal and tactile stimuli but he is not responding. Chest x-ray showed no abnormality as per radiologist. Patient is being followed up by critical care team closely Objective - Vital Signs Vital signs: Vital Signs Temp 98.2 F 04/07/18 08:00 Pulse 108 H 04/07/18 15:14 Resp 18 04/07/18 15:00 BP 121/80 04/07/18 10:00 Pulse Ox 96 04/07/18 15:00 Intake & Output 04/06/18 04/07/18 04/07/18 18:59 06:59 18:59 Intake Total 1320 1302.25 1287.433 Output Total 700 965 725 Balance 620 337.25 562.433 Weight 76.2 kg Intake: IV 900 825 775 Levofloxacin 500Mg-D5w 100 Pmx 500 mg In Dextrose/ Water 1 100ml.bag @ 100 mls/hr IVPB Q24HR [facility] Rx# :[id number] Sodium Chloride 0.9% 1, 900 825 675 000 ml @ 75 mls/hr IV . [id number] [facility] Rx#:[id number] Intake, IV Titration 200 52.25 57.433 Amount Levofloxacin 500Mg-D5w 100 Pmx 500 mg In Dextrose/ Water 1 100ml.bag @ 100 mls/hr IVPB Q24HR [facility] Rx# :[id number] Midazolam HCl 200 mg In 52.25 57.433 Sodium Chloride 0.9% 60 ml @ 1 MG/HR 0.5 mls/hr IV .Q24H [facility] Rx#: [id number] Propofol 1,000 mg In 100 Empty Bag 1 bag @ Titrate IV .Q0M [facility] Rx#: [id number] Tube Feeding 220 365 425 Other 60 30 Output: Urine 700 965 725 Other: Voiding Method Indwelling Catheter Indwelling Catheter Indwelling Catheter ABP, PAP, CO, CI - Last Documented Arterial Blood Pressure 145/66 - Exam GENERAL: Patient is sedated, not responsive HEENT: Pupils are round and equally reacting to light. EOMI. No scleral icterus. No conjunctival pallor. Normocephalic, atraumatic. No pharyngeal erythema. No -thyromegaly. Tracheostomy in Place CARDIOVASCULAR: S1 and S2 present. No murmurs, rubs, or gallops. PULMONARY: Chest is clear to auscultation, no wheezing or crackles. -ABDOMEN: Soft, nontender, nondistended, normoactive bowel sounds. No palpable organomegaly. Status post PEG placement MUSCULOSKELETAL: No joint swelling or deformity. EXTREMITIES: No cyanosis, clubbing, or pedal edema. NEUROLOGICAL: Gross neurological examination did not reveal any focal deficits. SKIN: No rashes. - Labs CBC & Chem 7: 04/07/18 04:30 04/07/18 04:30 Labs: Abnormal Lab Results - Last 24 Hours (Table) 04/06/18 04/06/18 04/06/18 Range/Units 16:27 21:03 23:45 RBC (4.30-5.90) m/uL Hgb (13.0-17.5) gm/dL Hct (39.0-53.0) % MCHC (31.0-37.0) g/dL Lymphocytes # (1.0-4.8) k/uL ABG pCO2 (35-45) mmHg ABG HCO3 (21-25) mmol/L ABG Total CO2 (19-24) mmol/L ABG O2 Saturation (94-97) % Potassium (3.5-5.1) mmol/L Carbon Dioxide (22-30) mmol/L BUN (9-20) mg/dL Creatinine (0.66-1.25) mg/dL Glucose (74-99) mg/dL POC Glucose (mg/dL) 130 H 107 H 119 H (75-99) mg/dL Calcium (8.4-10.2) mg/dL Magnesium (1.6-2.3) mg/dL 04/07/18 04/07/18 04/07/18 Range/Units 04:30 04:30 04:35 RBC 3.79 L (4.30-5.90) m/uL Hgb 11.6 L (13.0-17.5) gm/dL Hct 37.6 L (39.0-53.0) % MCHC 30.9 L (31.0-37.0) g/dL Lymphocytes # 0.5 L (1.0-4.8) k/uL ABG pCO2 (35-45) mmHg ABG HCO3 (21-25) mmol/L ABG Total CO2 (19-24) mmol/L ABG O2 Saturation (94-97) % Potassium 5.4 H (3.5-5.1) mmol/L Carbon Dioxide 35 H (22-30) mmol/L BUN 36 H (9-20) mg/dL Creatinine 0.59 L (0.66-1.25) mg/dL Glucose 143 H (74-99) mg/dL POC Glucose (mg/dL) 142 H (75-99) mg/dL Calcium 7.5 L (8.4-10.2) mg/dL Magnesium 2.8 H (1.6-2.3) mg/dL 04/07/18 04/07/18 04/07/18 Range/Units 04:41 08:37 11:34 RBC (4.30-5.90) m/uL Hgb (13.0-17.5) gm/dL Hct (39.0-53.0) % MCHC (31.0-37.0) g/dL Lymphocytes # (1.0-4.8) k/uL ABG pCO2 57 H (35-45) mmHg ABG HCO3 35 H (21-25) mmol/L ABG Total CO2 37 H (19-24) mmol/L ABG O2 Saturation 97.1 H (94-97) % Potassium (3.5-5.1) mmol/L Carbon Dioxide (22-30) mmol/L BUN (9-20) mg/dL Creatinine (0.66-1.25) mg/dL Glucose (74-99) mg/dL POC Glucose (mg/dL) 105 H 105 H (75-99) mg/dL Calcium (8.4-10.2) mg/dL Magnesium (1.6-2.3) mg/dL Assessment and Plan Assessment: -Acute hypoxemic and hypercapnic respiratory failure needed intubation -Status post Acute influenza infection -Acute severe exacerbation COPD with acute purulent tracheobronchitis -Acute on chronic hypoxic respiratory failure -Ongoing nicotine dependence -Obstructive sleep apnea, wears BiPAP at home Plan: This is a pleasant 57 years old male who presents with severe COPD exacerbation and influenza a. Patient was placed in the critical care unit on admission. Pulmonary team are following the patient, continue with present treatment, steroids, oxygen therapy. Patient finished his antibiotic course. Labs and medication were reviewed.. Continue same treatment. Continue with symptomatic treatment. Resume home medication. Monitor lytes and vitals. DVT and GI prophylaxis. Further recommendations of the clinical course of the patient DVT prophylaxis: Subcutaneous heparin GI Prophylaxis: Pepcid Prognosis is guarded
[2018-04-07] MEDS: LACTULOSE 20 GM/30 ML CUP PO SCH (16:18)
--- NOTE | 2018-04-07 16:46 | P.PN ---
Subjective Progress Note Date: 04/07/18 A 57-year-old male patient with advanced COPD with an FEV1 of less than 30% of predicted and chronic hypoxic respiratory failure with reduction dependent who also has history of obstructive sleep apnea mechanical CPAP therapy. The patient has an AHI of 23 and the patient has been maintained on CPAP therapy at a pressure of 9 cm of water on outpatient basis. In terms of COPD, the patient has been receiving Dulera, theophylline and maintenance 5 mg of prednisone a daily basis. The patient had 2 hospitalizations back in 2018 in the last hospitalization was in January 2018 for an acute on top of chronic hypoxic respiratory failure and COPD exacerbation. The patient was treated and the patient was discharged home. Over the past 24 hours, the patient became acutely ill. His had a rest or checked infection subsequently he got sick and within 24 hours he started having fever and chills and cough and congestion and shortness of breath and for that reason he was brought into the hospital. On route, the patient was placed on BiPAP. The same was done in the emergency department. He checked positive for influenza a and he was started on Tamiflu in addition to bronchodilators and steroids. He continued to be on a BiPAP and later on he failed BiPAP and he had to be intubated and placed on a mechanical ventilator. This morning, the patient is an assist-control mode of ventilation. His tidal volumes of 400 with an FiO2 of 50% with a PEEP of 5 and respiratory rate of 20. His peak air pressure is around and static air pressure of 22. There has been improvement in his acid-base status. The morning blood gas showed a pH of 7.32 with a pCO2 of 55 and pO2 of 172 and this was on FiO2 of 50%. Chest x-rays consistent with COPD and there is no evidence of any pulmonary infiltration or pneumonia. The patient had some diminished urine output and the patient is currently on IV fluids at the rate of 75 mL an hour. No leukocytosis. Renal function is stable. Currently sedated with Diprivan and, comfortable. Hemodynamically stable on no pressors. No reported chest pain. No reported swelling in lower extremities. Family is at the bedside. On today's evaluation of 04/01/2018 I'm seeing this patient for a follow-up. The patient remains sedated, comfortable mechanical ventilator. The patient is a tidal volume of 450 with an FiO2 of 40% and PEEP of 5 and the rate of 20. Peak airway pressures 31 and static pressures around 21. Chest x-ray showing hyperinflation without any acute pulmonary abnormalities or infiltrates. The patient is bronchospastic and wheezy. The patient has no auto PEEP. The patient's blood gases from today showed a pH of 7.35 with a pCO2 of 50 and pO2 of 126. The patient tolerating his tube feeds. The patient is hemodynamically stable. Remains on examination bronchodilators and steroids and antibiotics. The sputum cultures still negative. Blood cultures negative. No pressors. No other significant events overnight. Family is at the bedside. This is going to be a difficult wean knowing that the patient has advanced COPD with a baseline FEV1 of 30% of predicted. The patient also has chronic hypoxic respiratory failure. He is also known to have obstructive sleep apnea. On 04/02/2018 patient is being seen for a follow-up. Remains on a mechanical ventilator. Remains sedated. He was given a sedation holiday today which went very poorly. The patient aroused quite uncomfortable and he was fighting the respirator. He was completely synchronous. He became tachycardic and tachypneic and subsequently his oxygen saturations dropped and he was not getting his volumes. At that point, the sedation holiday was discontinued and the patient was placed back on sedation. He was given also a short spontaneous breathing trial which ended up being a failure. For now, the patient is an assist-control mode at the rate of 20 with tidal volume of 400 and FiO2 of 40% and PEEP of 5. I kept him on Diprivan. I switched him to ABC plus mode with a Itime of 0.9 seconds. His blood gases from earlier this morning showed a pH of 7.34 with a pCO2 of 53 and pO2 of 91. No significant orotracheal secretions. Peak airway pressures still at 30. No auto PEEP. The chest x-ray from today was no significant abnormalities. It correlates with COPD. All of the lines are in place. The patient is otherwise hemodynamically stable. He is receiving his tube feeds. No hemodynamic instability. He is producing adequate amount of urine output. He is afebrile. Family is at the bedside. Obviously this will be a difficult to wean knowing that his baseline FEV1 is around 30% of predicted and he has chronic hypoxic respiratory failure in addition to obstructive sleep apnea. On 04/03/2018 I'm seeing this patient for a follow-up. The patient remains on a mechanical ventilator. Attempts to switch him to Precedex yesterday failed and the patient was unable to hold his anxiety and agitation. For that reason the patient was started on clonazepam 1 mg twice a day and this morning he was gradually went off Diprivan. After dropping the Diprivan dose down to 20 mics per KG per minute, the patient started having increased anxiety, agitation, restlessness, hypertension, tachypnea, tachycardia, asynchronous with a mechanical ventilator. Based on all this, the attempt was aborted and the patient was placed back on sedation. He remains on a VC plus mode of mechanical ventilation. His rate is at 20 with tidal volume 400 and FiO2 of 40 % with a PEEP of 5. Chest x-ray shows no acute abnormalities and blood gases show a pH of 7.41 with a pCO2 50 and pO2 of 87. Rest of the blood work and electrodes are all within normal limits. He is tolerating his tube feeds. He is at goal for the time being. No edema no signs of any fluid overload. No fever or chills. No respiratory secretions. Had a lengthy discussion with the family and this will be a prolonged and slow wean and I've made recommendations for a PEG and trach probably early next week. We'll consult general surgery regarding a PEG and trach insertion. On 04/04/2018, the patient remains on a mechanical ventilator. We have made adjustments on the patient's sedation. Currently the patient on Versed drip at 8 mg/h and the patient is also on propofol which is down to 20 g per KG per minute. The patient is doing well. Very symptoms with the mechanical ventilator. Still on the same vent setting. No sedation holiday was given as the patient is quite agitated and restless and asynchronous with a mechanical ventilator and he would obviously failed sedation holiday. Note that he does not fully gaining consensual consciousness when he is off the sedation. Otherwise, he remains hemodynamically stable. He remains on a VC plus mode of mechanical ventilation. He is on a tidal volume of 400 with a rate of 20 and an FiO2 of 40% with a PEEP of 5. Chest x-ray findings are as essentially unchanged. The blood gases from today show a pH of 7.38 with a pCO2 of 61 and pO2 of 86. No fever. No chills. Tolerating his tube feeds. The general surgeon was consulted for a PEG and a tracheostomy tube insertion in a.m. On 04/05/2018 the patient remains on a mechanical ventilator. This morning he is on a 30 mg of Versed drip and propofol is running at 50 g per KG per minute. While sedated. The plan is to proceed with a PEG and trach today. He remains an assist-control mode of ventilation with a rate of 20, tidal volume of 400 and FiO2 of 40% with a PEEP of 5. No fever. No chills. The blood gases from today showed a pH of 7.45 with a pCO2 of 55 and pO2 of 86. Potassium level is at 5.7. I discussed this with anesthesiology. They wanted a repeat potassium prior to this patient going and proceeding with his PEG and trach. I gave the patient D50 and insulin and his potassium level needs to be repeated. Otherwise, his current tube feeds on hold. His chest x-ray from today is showing some mild interstitial prominence and ET tube is in a good location. The patient also had a central line which is in good location. He has background COPD. On 04/06/2018 I'm seeing this patient for a follow-up. The patient underwent a successful PEG and trach insertion. The patient has a #[address]. PEG tube is also in place. He is doing well. He is on the same vent setting. His peak airway pressures around 26. He is on VC plus mode with tidal volume of 400 with rate of 20 and FiO2 of 40% and PEEP of 5. Chest x -ray findings are essentially stable. Tracheostomy tube is in a good location. Hemodynamically stable. The patient is producing adequate amount of urine output. He is on DuoNeb neb last treatment [id number]. He is on a combination of Pulmicort and this was and Perforomist twice a day. He is on IV Solu-Medrol which was tapered down to 40 mg every 12 hours. Tube feeds will be started today. We are also going to gradually wean off his sedation and assess his underlying mentation. No other significant events otherwise. The surgical procedures went without any additional complications. On today's evaluation 04/07/2018, the patient is off Diprivan. The patient is currently on Versed which is being weaned down and is currently down to 7 mg per hour. The patient is synchronous with the mechanical ventilator. He is more active. His opening up his eyes. He was able to follow some simple commands earlier. However he gets very anxious critically and at times he becomes worked up and tachycardic and tachypneic. Blood pressure is also on the higher side. Added clonidine for blood pressure control. The patient otherwise is tolerating his tube feeds. He remains on a mechanical ventilator and the vent settings are essentially unchanged. He is on assist control mode of ventilation, VC plus, with tidal volume of 400 and FiO2 of 40% and a PEEP of 5. Chest x-ray shows no acute abnormalities. No significant respiratory secretions. The patient is tolerating tube feeds. However he has not had any bowel movement yet. We'll add lactulose. Family is at the bedside. The patient seems to be comfortable. Would like to gradually wean him off the Versed. Weaning parameters will be checked once the patient is much more awake and alert. Objective - Vital Signs Vital signs: Vital Signs Temp 98.7 F 04/07/18 16:00 Pulse 107 H 04/07/18 16:30 Resp 26 H 04/07/18 16:30 BP 121/80 04/07/18 10:00 Pulse Ox 97 04/07/18 16:30 Intake & Output 04/06/18 04/07/18 04/07/18 18:59 06:59 18:59 Intake Total 1320 1302.25 1527.183 Output Total 700 965 855 Balance 620 337.25 672.183 Weight 76.2 kg Intake: IV 900 825 850 Levofloxacin 500Mg-D5w 100 Pmx 500 mg In Dextrose/ Water 1 100ml.bag @ 100 mls/hr IVPB Q24HR [facility] Rx# :[id number] Sodium Chloride 0.9% 1, 900 825 750 000 ml @ 75 mls/hr IV . [id number] [facility] Rx#:[id number] Intake, IV Titration 200 52.25 67.183 Amount Levofloxacin 500Mg-D5w 100 Pmx 500 mg In Dextrose/ Water 1 100ml.bag @ 100 mls/hr IVPB Q24HR [facility] Rx# :[id number] Midazolam HCl 200 mg In 52.25 67.183 Sodium Chloride 0.9% 60 ml @ 1 MG/HR 0.5 mls/hr IV .Q24H [facility] Rx#: [id number] Propofol 1,000 mg In 100 Empty Bag 1 bag @ Titrate IV .Q0M [facility] Rx#: [id number] Tube Feeding 220 365 460 Other 60 150 Output: Urine 700 965 855 Other: Voiding Method Indwelling Catheter Indwelling Catheter Indwelling Catheter ABP, PAP, CO, CI - Last Documented Arterial Blood Pressure 158/67 - Exam The patient is calm and comfortable currently has a Shiley tracheostomy tube # 8. The patient is synchronous with the mechanical ventilator. No obvious signs of any respiratory distress at this point in time Head exam was generally normal. There was no scleral icterus or corneal arcus. Mucous membranes were moist. Neck was supple and without jugular venous distension, thyromegaly, or carotid bruits. Carotids were easily palpable bilaterally. There was no adenopathy. The patient has a left subclavian triple-lumen catheter in place. The patient has a #88 [address] tracheostomy tube in place which is nonfenestrated uncuffed. Lungs sounds are diminished bilaterally along with some few scattered expiratory wheezes heard throughout the lung joseph and there is pronation of expiratory phase of breathing. Cardiac exam revealed the PMI to be normally situated and sized. The rhythm was regular and no extrasystoles were noted during several minutes of auscultation. The first and second heart sounds were normal and physiologic splitting of the second heart sound was noted. There were no murmurs, rubs, clicks, or gallops. Abdominal exam revealed normal bowel sounds. The abdomen was soft, non-tender, and without masses, organomegaly, or appreciable enlargement of the abdominal aorta. The PEG tube site is dry clean and intact. Examination of the extremities revealed easily palpable radial, femoral and pedal pulses. There was no cyanosis, clubbing or edema. The patient has an art line in his right upper extremity Examination of the skin revealed no evidence of significant rashes, suspicious appearing nevi or other concerning lesions. Neurologically the patient is sedated yet responsive to painful stimulation. - Labs CBC & Chem 7: 04/07/18 04:30 04/07/18 04:30 Labs: Abnormal Lab Results - Last 24 Hours (Table) 04/06/18 04/06/18 04/07/18 Range/Units 21:03 23:45 04:30 RBC 3.79 L (4.30-5.90) m/uL Hgb 11.6 L (13.0-17.5) gm/dL Hct 37.6 L (39.0-53.0) % MCHC 30.9 L (31.0-37.0) g/dL Lymphocytes # 0.5 L (1.0-4.8) k/uL ABG pCO2 (35-45) mmHg ABG HCO3 (21-25) mmol/L ABG Total CO2 (19-24) mmol/L ABG O2 Saturation (94-97) % Potassium (3.5-5.1) mmol/L Carbon Dioxide (22-30) mmol/L BUN (9-20) mg/dL Creatinine (0.66-1.25) mg/dL Glucose (74-99) mg/dL POC Glucose (mg/dL) 107 H 119 H (75-99) mg/dL Calcium (8.4-10.2) mg/dL Magnesium (1.6-2.3) mg/dL 04/07/18 04/07/18 04/07/18 Range/Units 04:30 04:35 04:41 RBC (4.30-5.90) m/uL Hgb (13.0-17.5) gm/dL Hct (39.0-53.0) % MCHC (31.0-37.0) g/dL Lymphocytes # (1.0-4.8) k/uL ABG pCO2 57 H (35-45) mmHg ABG HCO3 35 H (21-25) mmol/L ABG Total CO2 37 H (19-24) mmol/L ABG O2 Saturation 97.1 H (94-97) % Potassium 5.4 H (3.5-5.1) mmol/L Carbon Dioxide 35 H (22-30) mmol/L BUN 36 H (9-20) mg/dL Creatinine 0.59 L (0.66-1.25) mg/dL Glucose 143 H (74-99) mg/dL POC Glucose (mg/dL) 142 H (75-99) mg/dL Calcium 7.5 L (8.4-10.2) mg/dL Magnesium 2.8 H (1.6-2.3) mg/dL 04/07/18 04/07/18 Range/Units 08:37 11:34 RBC (4.30-5.90) m/uL Hgb (13.0-17.5) gm/dL Hct (39.0-53.0) % MCHC (31.0-37.0) g/dL Lymphocytes # (1.0-4.8) k/uL ABG pCO2 (35-45) mmHg ABG HCO3 (21-25) mmol/L ABG Total CO2 (19-24) mmol/L ABG O2 Saturation (94-97) % Potassium (3.5-5.1) mmol/L Carbon Dioxide (22-30) mmol/L BUN (9-20) mg/dL Creatinine (0.66-1.25) mg/dL Glucose (74-99) mg/dL POC Glucose (mg/dL) 105 H 105 H (75-99) mg/dL Calcium (8.4-10.2) mg/dL Magnesium (1.6-2.3) mg/dL Assessment and Plan Plan: Assessment 1 acute COPD exacerbation secondary to an acute influenza pulmonary infection. The patient failed initial weaning. The patient is post tracheostomy tube insertion. He completed his course of Tamiflu. He is doing well. He is ever pressures have improved and COPD exacerbations gradually improving. He was a very difficult to wean as the patient remains quite agitated and anxious while off sedation. He is for tracheostomy tube insertion. Currently off Diprivan. Still on Versed 8 mg an hour and the dose being titrated gradually regaining consciousness. He is following some simple commands. Consider an underlying delirium tremens 2 acute on top of chronic hypoxic respiratory failure, secondary to above 3 advanced COPD at baseline with FEV1 of less than 30% of predicted 4 previous hospitalization for COPD exacerbations last one being in January 2018 5 smoker 6 chronic anxiety 7 acute on Chronic hypercapnic respiratory failure secondary to COPD 8 obstructive sleep apnea maintained on CPAP at a pressure of 9 cm of water on outpatient basis 9 enteral feeding for nutritional support Plan The patient is on vent support. No weaning trials.. We'll check a set of weaning parameters. We'll gradually wean off Versed. Continue bronchodilators. Continue steroids. The dose of Solu-Medrol has already been weaned. The patient is less bronchospastic and wheezy. Initiate lactulose to improve with activity. Add Catapres for a better blood pressure control especially while the patient is being weaned off the sedation. The patient will be started on 0.2 mg of Catapres 3 times a day. Fortunately the patient is off Diprivan. We'll continue to follow make further recommendations based on her progress. There is a critically care evaluation was done more than 30 minutes. Time with Patient: Greater than 30
[2018-04-07 16:58] LABS: Glucose,Whole Blood 132 mg/dL (75-99)
[2018-04-07 20:23] LABS: Glucose,Whole Blood 105 mg/dL (75-99)
[2018-04-07] MEDS: IPRATROPIUM-ALBUTEROL 3 ML NEB INHALATION PRN (23:12)
[2018-04-07 23:45] LABS: Glucose,Whole Blood 126 mg/dL (75-99)
[2018-04-08] MEDS: INSULIN ASPART (NovoLOG) 100 UNIT/ML VIAL SQ SCH ×6 (01:23→22:09)
[2018-04-08] MEDS: SODIUM CHLORIDE 0.9% 1,000 ML IV SCH ×2 (01:24→12:05)
[2018-04-08] MEDS: IPRATROPIUM-ALBUTEROL 3 ML NEB INHALATION PRN ×2 (03:06→23:18)
[2018-04-08 03:51] LABS: Glucose,Whole Blood 163 mg/dL (75-99)
[2018-04-08] MEDS: HYDROmorphone 1 MG/ML 1 ML SYRINGE IVP PRN (04:10)
[2018-04-08 04:45] LABS: HCT 34.8 % (39.0-53.0); HGB 11.2 gm/dL (13.0-17.5); MCH 31.5 pg (25.0-35.0); MCHC 32.1 g/dL (31.0-37.0); MCV 98.1 fL (80.0-100.0); Mean Platelet Volume 7.1; Platelet Count 210 k/uL (150-450); RBC 3.55 m/uL (4.30-5.90); RDW 14.3 % (11.5-15.5)
[2018-04-08 04:54] LABS: Anion Gap 1 mmol/L; Blood Urea Nitrogen 33 mg/dL (9-20); Calcium 7.8 mg/dL (8.4-10.2); Carbon Dioxide 33 mmol/L (22-30); Chloride 103 mmol/L (98-107); Glucose 152 mg/dL (74-99); Magnesium 2.4 mg/dL (1.6-2.3); Phosphorus 3.9 mg/dL (2.5-4.5); Potassium 5.3 mmol/L (3.5-5.1); Sodium 137 mmol/L (137-145)
[2018-04-08 05:15] LABS: ABG Base Excess 8.8 mmol/L; ABG HCO3 33 mmol/L (21-25); ABG PCO2 51 mmHg (35-45); ABG PH 7.43 (7.35-7.45); ABG PO2 133 mmHg (83-108); ABG TCO2 35 mmol/L (19-24)
[2018-04-08 05:30] LABS: ABG Oxygen Saturation 97.9 % (94-97)
[2018-04-08] MEDS: BUDESONIDE 1 MG/2 ML NEBU INHALATION SCH ×2 (07:48→20:14)
[2018-04-08] MEDS: IPRATROPIUM-ALBUTEROL 3 ML NEB INHALATION SCH ×4 (07:48→20:14)
[2018-04-08] MEDS: FORMOTEROL FUMARATE 20 MCG/2 ML NEBU INHALATION SCH ×2 (07:48→20:14)
[2018-04-08] MEDS: LACTULOSE 20 GM/30 ML CUP PO SCH (08:29)
[2018-04-08] MEDS: CHLORHEXIDINE GLUCONATE 15 ML CUP MUCOUS MEM SCH ×2 (08:29→22:10)
[2018-04-08] MEDS: FAMOTIDINE 20 MG/2 ML VIAL IV SCH ×2 (08:29→20:11)
[2018-04-08] MEDS: HEPARIN SODIUM,PORCINE 5,000 UNIT/ML 1 ML VIAL SQ SCH ×2 (08:29→17:16)
[2018-04-08] MEDS: cloNIDine HCL 0.2 MG TAB PO SCH ×3 (08:29→22:10)
[2018-04-08] MEDS: LEVOFLOXACIN 500MG-D5W PMX 500 MG in DEXTROSE/WATER 1 100ML.BAG IVPB SCH (08:30)
[2018-04-08] MEDS: methylPREDNISolone SOD SUCCI 40 MG/ML 1 ML VIAL IV SCH (08:30)
[2018-04-08 08:34] LABS: Glucose,Whole Blood 121 mg/dL (75-99)
--- NOTE | 2018-04-08 08:53 | XR ---
EXAMINATION TYPE: XR chest 1V DATE OF EXAM: 04/08/2018 COMPARISON: 04/07/2018 HISTORY: Tube placement TECHNIQUE: Single frontal view of the chest is obtained. FINDINGS: ET tube and central line stable. Mild prominence of the central interstitium. No pleural e ffusion or pneumothorax. No consolidation. Correlate for COPD. IMPRESSION: Stable x-ray demonstrating no acute abnormality. Mild chronic interstitial changes suspe cted correlate for chronic interstitial lung disease or congestion.
[2018-04-08] MEDS: CLEVIDIPINE BUTYRATE 25 MG in EMPTY BAG 1 BAG IV SCH ×5 (11:01→22:12)
[2018-04-08] MEDS: clonazePAM 1 MG TAB PO SCH ×2 (11:10→20:10)
[2018-04-08 11:54] LABS: ABG Base Excess 7.9 mmol/L; ABG HCO3 33 mmol/L (21-25); ABG Oxygen Saturation 96.1 % (94-97); ABG PCO2 55 mmHg (35-45); ABG PH 7.39 (7.35-7.45); ABG PO2 85 mmHg (83-108); ABG TCO2 35 mmol/L (19-24)
--- NOTE | 2018-04-08 11:55 | XR ---
EXAMINATION TYPE: XR abdomen 1V DATE OF EXAM: 04/08/2018 COMPARISON: 07/28/2016 HISTORY: Abdominal distention TECHNIQUE: One view abdominal series FINDINGS: The osseous structures are intact. The bowel gas pattern is nonspecific. Motion artifact limits the exam. Arthropathy of the hips and degenerative change of the spine. Vascular calcifications noted. Re tained fecal debris throughout the rectum. IMPRESSION: 1. Nonspecific abdomen limited by motion artifact.
[2018-04-08 12:03] LABS: Glucose,Whole Blood 114 mg/dL (75-99)
[2018-04-08] MEDS: MIDAZOLAM HCL 200 MG in SODIUM CHLORIDE 0.9% 60 ML IV SCH (15:11)
[2018-04-08 16:02] LABS: Glucose,Whole Blood 139 mg/dL (75-99)
--- NOTE | 2018-04-08 16:20 | P.PN ---
Subjective This is a 57-year-old male with a history of severe COPD, nicotine dependence, sleep apnea. who presents with worsening shortness of breath and resp distress, which was going on for 3 days, patient thought that he got some kind of infection of from his . He had myalgias and fever or chills. No chest pain. He needed CPAP during the transport. pt got intubated and he is sedated now , he in the ICU, most of the information was taken from staff and medical records. He came yesterday with respiratory distress with respiratory rate above 30 at times, systolic blood pressure was 120-150s, this morning 95/70. CBC was unremarkable. ABG showing retaining CO2 with acidemia and acidosis. Potassium 5.2, creatinine 0.5. Magnesium 2.5. Chest x-ray, no acute process per Radiologist. EKG shows sinus tachycardia with QTC 422. rate at 133. influenza attesting back positive. 04/06/2018 Patient still remains in the ICU, he is intubated. Vitals are acceptable. CBC and BMP were reviewed with no significant abnormality and sugar is controlled. Culture shows no growth. Chest x-ray: COPD. Patient is been followed up by pulmonary, critical care team patient is status post PEG tube and tracheostomy. Pulmonary team are planning to wean of his sedation. 04/07/2018 Patient status post tracheostomy, still on vent dependent. Patient opened eyes to verbal and tactile stimuli but he is not responding. Chest x-ray showed no abnormality as per radiologist. Patient is being followed up by critical care team closely 04/08/2018 Patient still on tracheal collar, Versed has trying to be weaned down by critical care team however patient still making much progress and he is not waking up. He has capacity Tanmay and staff are sending sputum culture. Also he has some fungal infection in the perineal area which can be treated locally. Critical care team input is appreciated. Abdominal x-ray: Nonspecific abnormality. Chest x-ray stable abnormalities with no acute event as per radiology report. No leukocytosis. Creatinine 0.5, potassium 5.4. Magnesium 2.8. Continue on prednisone 40 mg daily Objective - Vital Signs Vital signs: Vital Signs Temp 98.1 F 04/08/18 15:30 Pulse 131 H 04/08/18 15:30 Resp 35 H 04/08/18 15:30 BP 121/80 04/08/18 15:30 Pulse Ox 93 L 04/08/18 15:30 Intake & Output 04/07/18 04/08/18 04/08/18 18:59 06:59 18:59 Intake Total 8108.872 1747.333 1350.575 Output Total 1050 825 865 Balance 817.783 534.333 485.575 Weight 75 kg 75 kg Intake: IV 1075 825 775 Levofloxacin 500Mg-D5w 100 100 Pmx 500 mg In Dextrose/ Water 1 100ml.bag @ 100 mls/hr IVPB Q24HR [facility] Rx# :[id number] Sodium Chloride 0.9% 1, 750 000 ml @ 40 mls/hr IV . Q24H [facility] Rx#:[id number] Sodium Chloride 0.9% 1, 225 825 675 000 ml @ 75 mls/hr IV . [id number] [facility] Rx#:[id number] Intake, IV Titration 77.783 9.333 200.575 Amount Clevidipine Butyrate 25 50.000 mg In Empty Bag 1 bag @ 1 MG/HR 2 mls/hr IV .Q24H [facility] Rx#:[id number] Midazolam HCl 200 mg In 77.783 9.333 50.575 Sodium Chloride 0.9% 60 ml @ 1 MG/HR 0.5 mls/hr IV .Q24H [facility] Rx#: [id number] Propofol 1,000 mg In 100 Empty Bag 1 bag @ Titrate IV .Q0M [facility] Rx#: [id number] Tube Feeding 565 525 175 Other 150 200 Output: Urine 1050 825 865 Other: Voiding Method Indwelling Catheter Indwelling Catheter Indwelling Catheter ABP, PAP, CO, CI - Last Documented Arterial Blood Pressure 186/87 - Exam GENERAL: Patient is sedated, not responsive HEENT: Pupils are round and equally reacting to light. EOMI. No scleral icterus. No conjunctival pallor. Normocephalic, atraumatic. No pharyngeal erythema. No -thyromegaly. Tracheostomy in Place CARDIOVASCULAR: S1 and S2 present. No murmurs, rubs, or gallops. PULMONARY: Chest is clear to auscultation, no wheezing or crackles. -ABDOMEN: Soft, nontender, nondistended, normoactive bowel sounds. No palpable organomegaly. Status post PEG placement MUSCULOSKELETAL: No joint swelling or deformity. EXTREMITIES: No cyanosis, clubbing, or pedal edema. NEUROLOGICAL: Gross neurological examination did not reveal any focal deficits. SKIN: No rashes. - Labs CBC & Chem 7: 04/08/18 04:15 04/08/18 04:15 Labs: Abnormal Lab Results - Last 24 Hours (Table) 04/07/18 04/07/18 04/07/18 Range/Units 16:57 20:22 23:44 RBC (4.30-5.90) m/uL Hgb (13.0-17.5) gm/dL Hct (39.0-53.0) % ABG pCO2 (35-45) mmHg ABG pO2 (83-108) mmHg ABG HCO3 (21-25) mmol/L ABG Total CO2 (19-24) mmol/L ABG O2 Saturation (94-97) % Potassium (3.5-5.1) mmol/L Carbon Dioxide (22-30) mmol/L BUN (9-20) mg/dL Creatinine (0.66-1.25) mg/dL Glucose (74-99) mg/dL POC Glucose (mg/dL) 132 H 105 H 126 H (75-99) mg/dL Calcium (8.4-10.2) mg/dL Magnesium (1.6-2.3) mg/dL 04/08/18 04/08/18 04/08/18 Range/Units 03:50 04:15 04:15 RBC 3.55 L (4.30-5.90) m/uL Hgb 11.2 L (13.0-17.5) gm/dL Hct 34.8 L (39.0-53.0) % ABG pCO2 (35-45) mmHg ABG pO2 (83-108) mmHg ABG HCO3 (21-25) mmol/L ABG Total CO2 (19-24) mmol/L ABG O2 Saturation (94-97) % Potassium 5.3 H (3.5-5.1) mmol/L Carbon Dioxide 33 H (22-30) mmol/L BUN 33 H (9-20) mg/dL Creatinine 0.54 L (0.66-1.25) mg/dL Glucose 152 H (74-99) mg/dL POC Glucose (mg/dL) 163 H (75-99) mg/dL Calcium 7.8 L (8.4-10.2) mg/dL Magnesium 2.4 H (1.6-2.3) mg/dL 04/08/18 04/08/18 04/08/18 Range/Units 05:10 08:31 11:51 RBC (4.30-5.90) m/uL Hgb (13.0-17.5) gm/dL Hct (39.0-53.0) % ABG pCO2 51 H 55 H (35-45) mmHg ABG pO2 133 H (83-108) mmHg ABG HCO3 33 H 33 H (21-25) mmol/L ABG Total CO2 35 H 35 H (19-24) mmol/L ABG O2 Saturation 97.9 H (94-97) % Potassium (3.5-5.1) mmol/L Carbon Dioxide (22-30) mmol/L BUN (9-20) mg/dL Creatinine (0.66-1.25) mg/dL Glucose (74-99) mg/dL POC Glucose (mg/dL) 121 H (75-99) mg/dL Calcium (8.4-10.2) mg/dL Magnesium (1.6-2.3) mg/dL 04/08/18 04/08/18 Range/Units 12:01 16:00 RBC (4.30-5.90) m/uL Hgb (13.0-17.5) gm/dL Hct (39.0-53.0) % ABG pCO2 (35-45) mmHg ABG pO2 (83-108) mmHg ABG HCO3 (21-25) mmol/L ABG Total CO2 (19-24) mmol/L ABG O2 Saturation (94-97) % Potassium (3.5-5.1) mmol/L Carbon Dioxide (22-30) mmol/L BUN (9-20) mg/dL Creatinine (0.66-1.25) mg/dL Glucose (74-99) mg/dL POC Glucose (mg/dL) 114 H 139 H (75-99) mg/dL Calcium (8.4-10.2) mg/dL Magnesium (1.6-2.3) mg/dL Assessment and Plan Assessment: -Acute hypoxemic and hypercapnic respiratory failure needed intubation -Status post Acute influenza infection -Acute severe exacerbation COPD with acute purulent tracheobronchitis -Acute on chronic hypoxic respiratory failure -Ongoing nicotine dependence -Obstructive sleep apnea, wears BiPAP at home Plan: This is a pleasant 57 years old male who presents with severe COPD exacerbation and influenza a. Patient was placed in the critical care unit on admission. Pulmonary team are following the patient, continue with present treatment, steroids, oxygen therapy. Patient finished his antibiotic course. Labs and medication were reviewed.. Continue same treatment. Continue with symptomatic treatment. Resume home medication. Monitor lytes and vitals. DVT and GI prophylaxis. Further recommendations of the clinical course of the patient DVT prophylaxis: Subcutaneous heparin GI Prophylaxis: Pepcid Prognosis is guarded
--- NOTE | 2018-04-08 16:38 | P.PN ---
Subjective Progress Note Date: 04/08/18 A 57-year-old male patient with advanced COPD with an FEV1 of less than 30% of predicted and chronic hypoxic respiratory failure with reduction dependent who also has history of obstructive sleep apnea mechanical CPAP therapy. The patient has an AHI of 23 and the patient has been maintained on CPAP therapy at a pressure of 9 cm of water on outpatient basis. In terms of COPD, the patient has been receiving Dulera, theophylline and maintenance 5 mg of prednisone a daily basis. The patient had 2 hospitalizations back in 2018 in the last hospitalization was in January 2018 for an acute on top of chronic hypoxic respiratory failure and COPD exacerbation. The patient was treated and the patient was discharged home. Over the past 24 hours, the patient became acutely ill. His had a rest or checked infection subsequently he got sick and within 24 hours he started having fever and chills and cough and congestion and shortness of breath and for that reason he was brought into the hospital. On route, the patient was placed on BiPAP. The same was done in the emergency department. He checked positive for influenza a and he was started on Tamiflu in addition to bronchodilators and steroids. He continued to be on a BiPAP and later on he failed BiPAP and he had to be intubated and placed on a mechanical ventilator. This morning, the patient is an assist-control mode of ventilation. His tidal volumes of 400 with an FiO2 of 50% with a PEEP of 5 and respiratory rate of 20. His peak air pressure is around and static air pressure of 22. There has been improvement in his acid-base status. The morning blood gas showed a pH of 7.32 with a pCO2 of 55 and pO2 of 172 and this was on FiO2 of 50%. Chest x-rays consistent with COPD and there is no evidence of any pulmonary infiltration or pneumonia. The patient had some diminished urine output and the patient is currently on IV fluids at the rate of 75 mL an hour. No leukocytosis. Renal function is stable. Currently sedated with Diprivan and, comfortable. Hemodynamically stable on no pressors. No reported chest pain. No reported swelling in lower extremities. Family is at the bedside. On today's evaluation of 04/01/2018 I'm seeing this patient for a follow-up. The patient remains sedated, comfortable mechanical ventilator. The patient is a tidal volume of 450 with an FiO2 of 40% and PEEP of 5 and the rate of 20. Peak airway pressures 31 and static pressures around 21. Chest x-ray showing hyperinflation without any acute pulmonary abnormalities or infiltrates. The patient is bronchospastic and wheezy. The patient has no auto PEEP. The patient's blood gases from today showed a pH of 7.35 with a pCO2 of 50 and pO2 of 126. The patient tolerating his tube feeds. The patient is hemodynamically stable. Remains on examination bronchodilators and steroids and antibiotics. The sputum cultures still negative. Blood cultures negative. No pressors. No other significant events overnight. Family is at the bedside. This is going to be a difficult wean knowing that the patient has advanced COPD with a baseline FEV1 of 30% of predicted. The patient also has chronic hypoxic respiratory failure. He is also known to have obstructive sleep apnea. On 04/02/2018 patient is being seen for a follow-up. Remains on a mechanical ventilator. Remains sedated. He was given a sedation holiday today which went very poorly. The patient aroused quite uncomfortable and he was fighting the respirator. He was completely synchronous. He became tachycardic and tachypneic and subsequently his oxygen saturations dropped and he was not getting his volumes. At that point, the sedation holiday was discontinued and the patient was placed back on sedation. He was given also a short spontaneous breathing trial which ended up being a failure. For now, the patient is an assist-control mode at the rate of 20 with tidal volume of 400 and FiO2 of 40% and PEEP of 5. I kept him on Diprivan. I switched him to ABC plus mode with a Itime of 0.9 seconds. His blood gases from earlier this morning showed a pH of 7.34 with a pCO2 of 53 and pO2 of 91. No significant orotracheal secretions. Peak airway pressures still at 30. No auto PEEP. The chest x-ray from today was no significant abnormalities. It correlates with COPD. All of the lines are in place. The patient is otherwise hemodynamically stable. He is receiving his tube feeds. No hemodynamic instability. He is producing adequate amount of urine output. He is afebrile. Family is at the bedside. Obviously this will be a difficult to wean knowing that his baseline FEV1 is around 30% of predicted and he has chronic hypoxic respiratory failure in addition to obstructive sleep apnea. On 04/03/2018 I'm seeing this patient for a follow-up. The patient remains on a mechanical ventilator. Attempts to switch him to Precedex yesterday failed and the patient was unable to hold his anxiety and agitation. For that reason the patient was started on clonazepam 1 mg twice a day and this morning he was gradually went off Diprivan. After dropping the Diprivan dose down to 20 mics per KG per minute, the patient started having increased anxiety, agitation, restlessness, hypertension, tachypnea, tachycardia, asynchronous with a mechanical ventilator. Based on all this, the attempt was aborted and the patient was placed back on sedation. He remains on a VC plus mode of mechanical ventilation. His rate is at 20 with tidal volume 400 and FiO2 of 40 % with a PEEP of 5. Chest x-ray shows no acute abnormalities and blood gases show a pH of 7.41 with a pCO2 50 and pO2 of 87. Rest of the blood work and electrodes are all within normal limits. He is tolerating his tube feeds. He is at goal for the time being. No edema no signs of any fluid overload. No fever or chills. No respiratory secretions. Had a lengthy discussion with the family and this will be a prolonged and slow wean and I've made recommendations for a PEG and trach probably early next week. We'll consult general surgery regarding a PEG and trach insertion. On 04/04/2018, the patient remains on a mechanical ventilator. We have made adjustments on the patient's sedation. Currently the patient on Versed drip at 8 mg/h and the patient is also on propofol which is down to 20 g per KG per minute. The patient is doing well. Very symptoms with the mechanical ventilator. Still on the same vent setting. No sedation holiday was given as the patient is quite agitated and restless and asynchronous with a mechanical ventilator and he would obviously failed sedation holiday. Note that he does not fully gaining consensual consciousness when he is off the sedation. Otherwise, he remains hemodynamically stable. He remains on a VC plus mode of mechanical ventilation. He is on a tidal volume of 400 with a rate of 20 and an FiO2 of 40% with a PEEP of 5. Chest x-ray findings are as essentially unchanged. The blood gases from today show a pH of 7.38 with a pCO2 of 61 and pO2 of 86. No fever. No chills. Tolerating his tube feeds. The general surgeon was consulted for a PEG and a tracheostomy tube insertion in a.m. On 04/05/2018 the patient remains on a mechanical ventilator. This morning he is on a 30 mg of Versed drip and propofol is running at 50 g per KG per minute. While sedated. The plan is to proceed with a PEG and trach today. He remains an assist-control mode of ventilation with a rate of 20, tidal volume of 400 and FiO2 of 40% with a PEEP of 5. No fever. No chills. The blood gases from today showed a pH of 7.45 with a pCO2 of 55 and pO2 of 86. Potassium level is at 5.7. I discussed this with anesthesiology. They wanted a repeat potassium prior to this patient going and proceeding with his PEG and trach. I gave the patient D50 and insulin and his potassium level needs to be repeated. Otherwise, his current tube feeds on hold. His chest x-ray from today is showing some mild interstitial prominence and ET tube is in a good location. The patient also had a central line which is in good location. He has background COPD. On 04/06/2018 I'm seeing this patient for a follow-up. The patient underwent a successful PEG and trach insertion. The patient has a #[address] in [address]. PEG tube is also in place. He is doing well. He is on the same vent setting. His peak airway pressures around 26. He is on VC plus mode with tidal volume of 400 with rate of 20 and FiO2 of 40% and PEEP of 5. Chest x -ray findings are essentially stable. Tracheostomy tube is in a good location. Hemodynamically stable. The patient is producing adequate amount of urine output. He is on DuoNeb neb last treatment [id number]. He is on a combination of Pulmicort and this was and Perforomist twice a day. He is on IV Solu-Medrol which was tapered down to 40 mg every 12 hours. Tube feeds will be started today. We are also going to gradually wean off his sedation and assess his underlying mentation. No other significant events otherwise. The surgical procedures went without any additional complications. On today's evaluation 04/07/2018, the patient is off Diprivan. The patient is currently on Versed which is being weaned down and is currently down to 7 mg per hour. The patient is synchronous with the mechanical ventilator. He is more active. His opening up his eyes. He was able to follow some simple commands earlier. However he gets very anxious critically and at times he becomes worked up and tachycardic and tachypneic. Blood pressure is also on the higher side. Added clonidine for blood pressure control. The patient otherwise is tolerating his tube feeds. He remains on a mechanical ventilator and the vent settings are essentially unchanged. He is on assist control mode of ventilation, VC plus, with tidal volume of 400 and FiO2 of 40% and a PEEP of 5. Chest x-ray shows no acute abnormalities. No significant respiratory secretions. The patient is tolerating tube feeds. However he has not had any bowel movement yet. We'll add lactulose. Family is at the bedside. The patient seems to be comfortable. Would like to gradually wean him off the Versed. Weaning parameters will be checked once the patient is much more awake and alert. On 04/08/2018, the patient remains off Diprivan. It has been difficult to wean the Versed as the patient gets a autonomic reaction, and he becomes restless and tachycardic and hypertensive. We were able to cut him down to 3 mg of Versed per hour. Meanwhile, we had to use Cleviprex for blood pressure control. I also started this patient on clonazepam 1 mg twice a day. He is on clonidine for blood pressure control in addition. During the day, the patient became quite restless and later on he settled and currently is at the point where his opening his eyes and on few instances he was able to follow some commands. He seems to be more comfortable today. On a assist-control mode of ventilation. He is on a tidal volume 400 with an FiO2 of 40% and a PEEP of 5. Tube feeds were placed on hold as the patient is being weaned off the sedation. Orotracheal secretions are minimal. The patient a tracheostomy tube in place. We will start on lactulose for bowel movement activity. No fever. No chills. Chest x-ray findings are stable and the patient had no pneumothorax or evolving pneumonia. No fever or chills. His neurologic exam is nonfocal. Objective - Vital Signs Vital signs: Vital Signs Temp 98.1 F 04/08/18 15:30 Pulse 131 H 04/08/18 15:30 Resp 35 H 04/08/18 15:30 BP 121/80 04/08/18 15:30 Pulse Ox 93 L 04/08/18 15:30 Intake & Output 04/07/18 04/08/18 04/08/18 18:59 06:59 18:59 Intake Total 7389.372 4492.333 1350.575 Output Total 1050 825 865 Balance 817.783 534.333 485.575 Weight 75 kg 75 kg Intake: IV 1075 825 775 Levofloxacin 500Mg-D5w 100 100 Pmx 500 mg In Dextrose/ Water 1 100ml.bag @ 100 mls/hr IVPB Q24HR [facility] Rx# :[id number] Sodium Chloride 0.9% 1, 750 000 ml @ 40 mls/hr IV . Q24H [facility] Rx#:[id number] Sodium Chloride 0.9% 1, 225 825 675 000 ml @ 75 mls/hr IV . [id number] [facility] Rx#:[id number] Intake, IV Titration 77.783 9.333 200.575 Amount Clevidipine Butyrate 25 50.000 mg In Empty Bag 1 bag @ 1 MG/HR 2 mls/hr IV .Q24H [facility] Rx#:[id number] Midazolam HCl 200 mg In 77.783 9.333 50.575 Sodium Chloride 0.9% 60 ml @ 1 MG/HR 0.5 mls/hr IV .Q24H [facility] Rx#: [id number] Propofol 1,000 mg In 100 Empty Bag 1 bag @ Titrate IV .Q0M [facility] Rx#: [id number] Tube Feeding 565 525 175 Other 150 200 Output: Urine 1050 825 865 Other: Voiding Method Indwelling Catheter Indwelling Catheter Indwelling Catheter ABP, PAP, CO, CI - Last Documented Arterial Blood Pressure 186/87 - Exam The patient is more constable comfortable as he is being weaned off the Versed drip. currently has a Shiley tracheostomy tube #8. The patient is synchronous with the mechanical ventilator. No obvious signs of any respiratory distress at this point in time Head exam was generally normal. There was no scleral icterus or corneal arcus. Mucous membranes were moist. Neck was supple and without jugular venous distension, thyromegaly, or carotid bruits. Carotids were easily palpable bilaterally. There was no adenopathy. The patient has a left subclavian triple-lumen catheter in place. The patient has a #88 [address] tracheostomy tube in place which is nonfenestrated uncuffed. Lungs sounds are diminished bilaterally along with some few scattered expiratory wheezes heard throughout the lung joseph and there is pronation of expiratory phase of breathing. Cardiac exam revealed the PMI to be normally situated and sized. The rhythm was regular and no extrasystoles were noted during several minutes of auscultation. The first and second heart sounds were normal and physiologic splitting of the second heart sound was noted. There were no murmurs, rubs, clicks, or gallops. Abdominal exam revealed normal bowel sounds. The abdomen was soft, non-tender, and without masses, organomegaly, or appreciable enlargement of the abdominal aorta. The PEG tube site is dry clean and intact. Examination of the extremities revealed easily palpable radial, femoral and pedal pulses. There was no cyanosis, clubbing or edema. The patient has an art line in his right upper extremity Examination of the skin revealed no evidence of significant rashes, suspicious appearing nevi or other concerning lesions. Neurologically the patient is quite restless. This has improved during the day. We are seeing some restlessness as the patient is being weaned of Versed. Nevertheless, by day and of the day he was able to follow some simple commands per nursing staff. No seizure activity. He is moving all 4 extremities. Pupils are equal and reactive to light. No facial asymmetry. - Labs CBC & Chem 7: 04/08/18 04:15 04/08/18 04:15 Labs: Abnormal Lab Results - Last 24 Hours (Table) 04/07/18 04/07/18 04/07/18 Range/Units 16:57 20:22 23:44 RBC (4.30-5.90) m/uL Hgb (13.0-17.5) gm/dL Hct (39.0-53.0) % ABG pCO2 (35-45) mmHg ABG pO2 (83-108) mmHg ABG HCO3 (21-25) mmol/L ABG Total CO2 (19-24) mmol/L ABG O2 Saturation (94-97) % Potassium (3.5-5.1) mmol/L Carbon Dioxide (22-30) mmol/L BUN (9-20) mg/dL Creatinine (0.66-1.25) mg/dL Glucose (74-99) mg/dL POC Glucose (mg/dL) 132 H 105 H 126 H (75-99) mg/dL Calcium (8.4-10.2) mg/dL Magnesium (1.6-2.3) mg/dL 04/08/18 04/08/18 04/08/18 Range/Units 03:50 04:15 04:15 RBC 3.55 L (4.30-5.90) m/uL Hgb 11.2 L (13.0-17.5) gm/dL Hct 34.8 L (39.0-53.0) % ABG pCO2 (35-45) mmHg ABG pO2 (83-108) mmHg ABG HCO3 (21-25) mmol/L ABG Total CO2 (19-24) mmol/L ABG O2 Saturation (94-97) % Potassium 5.3 H (3.5-5.1) mmol/L Carbon Dioxide 33 H (22-30) mmol/L BUN 33 H (9-20) mg/dL Creatinine 0.54 L (0.66-1.25) mg/dL Glucose 152 H (74-99) mg/dL POC Glucose (mg/dL) 163 H (75-99) mg/dL Calcium 7.8 L (8.4-10.2) mg/dL Magnesium 2.4 H (1.6-2.3) mg/dL 04/08/18 04/08/18 04/08/18 Range/Units 05:10 08:31 11:51 RBC (4.30-5.90) m/uL Hgb (13.0-17.5) gm/dL Hct (39.0-53.0) % ABG pCO2 51 H 55 H (35-45) mmHg ABG pO2 133 H (83-108) mmHg ABG HCO3 33 H 33 H (21-25) mmol/L ABG Total CO2 35 H 35 H (19-24) mmol/L ABG O2 Saturation 97.9 H (94-97) % Potassium (3.5-5.1) mmol/L Carbon Dioxide (22-30) mmol/L BUN (9-20) mg/dL Creatinine (0.66-1.25) mg/dL Glucose (74-99) mg/dL POC Glucose (mg/dL) 121 H (75-99) mg/dL Calcium (8.4-10.2) mg/dL Magnesium (1.6-2.3) mg/dL 04/08/18 04/08/18 Range/Units 12:01 16:00 RBC (4.30-5.90) m/uL Hgb (13.0-17.5) gm/dL Hct (39.0-53.0) % ABG pCO2 (35-45) mmHg ABG pO2 (83-108) mmHg ABG HCO3 (21-25) mmol/L ABG Total CO2 (19-24) mmol/L ABG O2 Saturation (94-97) % Potassium (3.5-5.1) mmol/L Carbon Dioxide (22-30) mmol/L BUN (9-20) mg/dL Creatinine (0.66-1.25) mg/dL Glucose (74-99) mg/dL POC Glucose (mg/dL) 114 H 139 H (75-99) mg/dL Calcium (8.4-10.2) mg/dL Magnesium (1.6-2.3) mg/dL Assessment and Plan Plan: Assessment 1 acute COPD exacerbation secondary to an acute influenza pulmonary infection. The patient failed initial weaning. The patient is post tracheostomy tube insertion. He completed his course of Tamiflu. He is doing well. He is ever pressures have improved and COPD exacerbations gradually improving. He was a very difficult to wean as the patient remains quite agitated and anxious while off sedation. He is for tracheostomy tube insertion. Currently off Diprivan. The patient is still being weaned off the sedation and currently is on a lower dose of Versed drip. We had to start him on a the Cleviprex for blood pressure control. We also had to start clonidine for blood pressure control. The patient doing better as the day goes by. The patient is less agitated. We were able to get some response from him. I'm considering a CAT scan of the head if he doesn't show adequate response and failure to wean off today sedation within the next 24 hours. I still think that his neurologic exam is nonfocal. There may be a component of delirium tremens. There may be a component of prolonged sedation effect as the patient was taken significant amount of sedation to control his agitation and restlessness. Overall COPD is stable. Airway pressures are lower. He is comfortable while being on a assist- control mode of ventilation, volume cycle. Chest x-ray findings are essentially stable. 2 acute on top of chronic hypoxic respiratory failure, secondary to above 3 advanced COPD at baseline with FEV1 of less than 30% of predicted 4 previous hospitalization for COPD exacerbations last one being in January 2018 5 smoker 6 chronic anxiety 7 acute on Chronic hypercapnic respiratory failure secondary to COPD 8 obstructive sleep apnea maintained on CPAP at a pressure of 9 cm of water on outpatient basis 9 enteral feeding for nutritional support Plan The patient is on vent support. No weaning trials. Prior to forward now will be to wean the patient off sedation. The patient will be kept on his Versed drip. Monitor mental status. Start lorazepam. Start Cleviprex drip for blood pressure control. Continue the clonidine. Monitor the neurologic outcome. Consider a CAT scan of the head in a.m. Hold tube feeds for now. Continue vent support. This continued IV Solu Medrol put the patient prednisone burst taper. Continue bronchodilators. We'll continue to follow. Condition remains critical. This is a critically care evaluation that was on a more than 30 minutes. Time with Patient: Greater than 30
[2018-04-08] MEDS: HALOPERIDOL LACTATE 5 MG/ML 1 ML VIAL IVP PRN ×2 (19:06→20:10)
[2018-04-08] MEDS: CITALOPRAM HYDROBROMIDE 20 MG TAB PO SCH (20:11)
[2018-04-08] MEDS: SCOPOLAMINE 1.5MG/72HR PATCH TRANSDERM SCH (20:12)
[2018-04-08 20:39] LABS: Glucose,Whole Blood 114 mg/dL (75-99)
[2018-04-08] MEDS: NYSTATIN 100,000 UNIT/GM POWD 15 GM TOPICAL SCH (22:10)
[2018-04-09 00:03] LABS: Glucose,Whole Blood 101 mg/dL (75-99)
[2018-04-09] MEDS: CLEVIDIPINE BUTYRATE 25 MG in EMPTY BAG 1 BAG IV SCH ×7 (01:50→21:08)
[2018-04-09] MEDS: HEPARIN SODIUM,PORCINE 5,000 UNIT/ML 1 ML VIAL SQ SCH ×4 (01:51→23:56)
[2018-04-09] MEDS: IPRATROPIUM-ALBUTEROL 3 ML NEB INHALATION PRN (03:05)
[2018-04-09] MEDS: INSULIN ASPART (NovoLOG) 100 UNIT/ML VIAL SQ SCH ×7 (04:25→23:57)
[2018-04-09 04:38] LABS: Glucose,Whole Blood 95 mg/dL (75-99)
[2018-04-09 05:08] LABS: ABG HCO3 33 mmol/L (21-25); ABG Oxygen Saturation 95.7 % (94-97); ABG PCO2 44 mmHg (35-45); ABG PH 7.48 (7.35-7.45); ABG PO2 74 mmHg (83-108); ABG TCO2 34 mmol/L (19-24)
[2018-04-09 05:33] LABS: HCT 33.4 % (39.0-53.0); HGB 11.2 gm/dL (13.0-17.5); MCH 32.4 pg (25.0-35.0); MCHC 33.7 g/dL (31.0-37.0); MCV 96.4 fL (80.0-100.0); Mean Platelet Volume 6.9; Platelet Count 217 k/uL (150-450); RBC 3.47 m/uL (4.30-5.90); WBC 8.4 k/uL (3.8-10.6)
[2018-04-09 05:40] LABS: Anion Gap 2 mmol/L; Blood Urea Nitrogen 27 mg/dL (9-20); Calcium 8.2 mg/dL (8.4-10.2); Carbon Dioxide 33 mmol/L (22-30); Chloride 102 mmol/L (98-107); Glucose 97 mg/dL (74-99); Magnesium 2.1 mg/dL (1.6-2.3); Potassium 4.5 mmol/L (3.5-5.1); Sodium 137 mmol/L (137-145)
[2018-04-09] MEDS: BUDESONIDE 1 MG/2 ML NEBU INHALATION SCH ×2 (07:46→19:00)
[2018-04-09] MEDS: IPRATROPIUM-ALBUTEROL 3 ML NEB INHALATION SCH ×4 (07:46→19:00)
[2018-04-09] MEDS: FORMOTEROL FUMARATE 20 MCG/2 ML NEBU INHALATION SCH ×2 (07:46→19:00)
[2018-04-09] MEDS: LACTULOSE 20 GM/30 ML CUP PO SCH (08:10)
[2018-04-09] MEDS: clonazePAM 1 MG TAB PO SCH ×2 (08:10→21:11)
[2018-04-09] MEDS: cloNIDine HCL 0.2 MG TAB PO SCH ×3 (08:10→21:11)
[2018-04-09] MEDS: CHLORHEXIDINE GLUCONATE 15 ML CUP MUCOUS MEM SCH ×2 (08:10→21:09)
[2018-04-09] MEDS: FAMOTIDINE 20 MG/2 ML VIAL IV SCH ×2 (08:10→21:09)
[2018-04-09] MEDS: predniSONE 20 MG TAB PO SCH (08:10)
[2018-04-09] MEDS: HYDROmorphone 1 MG/ML 1 ML SYRINGE IVP PRN ×4 (08:11→21:09)
[2018-04-09] MEDS: NYSTATIN 100,000 UNIT/GM POWD 15 GM TOPICAL SCH ×2 (08:12→21:11)
[2018-04-09 08:18] LABS: Glucose,Whole Blood 90 mg/dL (75-99)
[2018-04-09] MEDS: LEVOFLOXACIN 500MG-D5W PMX 500 MG in DEXTROSE/WATER 1 100ML.BAG IVPB SCH (08:33)
[2018-04-09] MEDS: MIDAZOLAM HCL 200 MG in SODIUM CHLORIDE 0.9% 60 ML IV SCH (08:33)
[2018-04-09 12:08] LABS: Glucose,Whole Blood 101 mg/dL (75-99)
[2018-04-09] MEDS: SODIUM CHLORIDE 0.9% 1,000 ML IV SCH (12:12)
--- NOTE | 2018-04-09 13:46 | P.PN ---
Subjective Progress Note Date: 04/09/18 A 57-year-old male patient with advanced COPD with an FEV1 of less than 30% of predicted and chronic hypoxic respiratory failure with reduction dependent who also has history of obstructive sleep apnea mechanical CPAP therapy. The patient has an AHI of 23 and the patient has been maintained on CPAP therapy at a pressure of 9 cm of water on outpatient basis. In terms of COPD, the patient has been receiving Dulera, theophylline and maintenance 5 mg of prednisone a daily basis. The patient had 2 hospitalizations back in 2018 in the last hospitalization was in January 2018 for an acute on top of chronic hypoxic respiratory failure and COPD exacerbation. The patient was treated and the patient was discharged home. Over the past 24 hours, the patient became acutely ill. His had a rest or checked infection subsequently he got sick and within 24 hours he started having fever and chills and cough and congestion and shortness of breath and for that reason he was brought into the hospital. On route, the patient was placed on BiPAP. The same was done in the emergency department. He checked positive for influenza a and he was started on Tamiflu in addition to bronchodilators and steroids. He continued to be on a BiPAP and later on he failed BiPAP and he had to be intubated and placed on a mechanical ventilator. This morning, the patient is an assist-control mode of ventilation. His tidal volumes of 400 with an FiO2 of 50% with a PEEP of 5 and respiratory rate of 20. His peak air pressure is around and static air pressure of 22. There has been improvement in his acid-base status. The morning blood gas showed a pH of 7.32 with a pCO2 of 55 and pO2 of 172 and this was on FiO2 of 50%. Chest x-rays consistent with COPD and there is no evidence of any pulmonary infiltration or pneumonia. The patient had some diminished urine output and the patient is currently on IV fluids at the rate of 75 mL an hour. No leukocytosis. Renal function is stable. Currently sedated with Diprivan and, comfortable. Hemodynamically stable on no pressors. No reported chest pain. No reported swelling in lower extremities. Family is at the bedside. On today's evaluation of 04/01/2018 I'm seeing this patient for a follow-up. The patient remains sedated, comfortable mechanical ventilator. The patient is a tidal volume of 450 with an FiO2 of 40% and PEEP of 5 and the rate of 20. Peak airway pressures 31 and static pressures around 21. Chest x-ray showing hyperinflation without any acute pulmonary abnormalities or infiltrates. The patient is bronchospastic and wheezy. The patient has no auto PEEP. The patient's blood gases from today showed a pH of 7.35 with a pCO2 of 50 and pO2 of 126. The patient tolerating his tube feeds. The patient is hemodynamically stable. Remains on examination bronchodilators and steroids and antibiotics. The sputum cultures still negative. Blood cultures negative. No pressors. No other significant events overnight. Family is at the bedside. This is going to be a difficult wean knowing that the patient has advanced COPD with a baseline FEV1 of 30% of predicted. The patient also has chronic hypoxic respiratory failure. He is also known to have obstructive sleep apnea. On 04/02/2018 patient is being seen for a follow-up. Remains on a mechanical ventilator. Remains sedated. He was given a sedation holiday today which went very poorly. The patient aroused quite uncomfortable and he was fighting the respirator. He was completely synchronous. He became tachycardic and tachypneic and subsequently his oxygen saturations dropped and he was not getting his volumes. At that point, the sedation holiday was discontinued and the patient was placed back on sedation. He was given also a short spontaneous breathing trial which ended up being a failure. For now, the patient is an assist-control mode at the rate of 20 with tidal volume of 400 and FiO2 of 40% and PEEP of 5. I kept him on Diprivan. I switched him to ABC plus mode with a Itime of 0.9 seconds. His blood gases from earlier this morning showed a pH of 7.34 with a pCO2 of 53 and pO2 of 91. No significant orotracheal secretions. Peak airway pressures still at 30. No auto PEEP. The chest x-ray from today was no significant abnormalities. It correlates with COPD. All of the lines are in place. The patient is otherwise hemodynamically stable. He is receiving his tube feeds. No hemodynamic instability. He is producing adequate amount of urine output. He is afebrile. Family is at the bedside. Obviously this will be a difficult to wean knowing that his baseline FEV1 is around 30% of predicted and he has chronic hypoxic respiratory failure in addition to obstructive sleep apnea. On 04/03/2018 I'm seeing this patient for a follow-up. The patient remains on a mechanical ventilator. Attempts to switch him to Precedex yesterday failed and the patient was unable to hold his anxiety and agitation. For that reason the patient was started on clonazepam 1 mg twice a day and this morning he was gradually went off Diprivan. After dropping the Diprivan dose down to 20 mics per KG per minute, the patient started having increased anxiety, agitation, restlessness, hypertension, tachypnea, tachycardia, asynchronous with a mechanical ventilator. Based on all this, the attempt was aborted and the patient was placed back on sedation. He remains on a VC plus mode of mechanical ventilation. His rate is at 20 with tidal volume 400 and FiO2 of 40 % with a PEEP of 5. Chest x-ray shows no acute abnormalities and blood gases show a pH of 7.41 with a pCO2 50 and pO2 of 87. Rest of the blood work and electrodes are all within normal limits. He is tolerating his tube feeds. He is at goal for the time being. No edema no signs of any fluid overload. No fever or chills. No respiratory secretions. Had a lengthy discussion with the family and this will be a prolonged and slow wean and I've made recommendations for a PEG and trach probably early next week. We'll consult general surgery regarding a PEG and trach insertion. On 04/04/2018, the patient remains on a mechanical ventilator. We have made adjustments on the patient's sedation. Currently the patient on Versed drip at 8 mg/h and the patient is also on propofol which is down to 20 g per KG per minute. The patient is doing well. Very symptoms with the mechanical ventilator. Still on the same vent setting. No sedation holiday was given as the patient is quite agitated and restless and asynchronous with a mechanical ventilator and he would obviously failed sedation holiday. Note that he does not fully gaining consensual consciousness when he is off the sedation. Otherwise, he remains hemodynamically stable. He remains on a VC plus mode of mechanical ventilation. He is on a tidal volume of 400 with a rate of 20 and an FiO2 of 40% with a PEEP of 5. Chest x-ray findings are as essentially unchanged. The blood gases from today show a pH of 7.38 with a pCO2 of 61 and pO2 of 86. No fever. No chills. Tolerating his tube feeds. The general surgeon was consulted for a PEG and a tracheostomy tube insertion in a.m. On 04/05/2018 the patient remains on a mechanical ventilator. This morning he is on a 30 mg of Versed drip and propofol is running at 50 g per KG per minute. While sedated. The plan is to proceed with a PEG and trach today. He remains an assist-control mode of ventilation with a rate of 20, tidal volume of 400 and FiO2 of 40% with a PEEP of 5. No fever. No chills. The blood gases from today showed a pH of 7.45 with a pCO2 of 55 and pO2 of 86. Potassium level is at 5.7. I discussed this with anesthesiology. They wanted a repeat potassium prior to this patient going and proceeding with his PEG and trach. I gave the patient D50 and insulin and his potassium level needs to be repeated. Otherwise, his current tube feeds on hold. His chest x-ray from today is showing some mild interstitial prominence and ET tube is in a good location. The patient also had a central line which is in good location. He has background COPD. On 04/06/2018 I'm seeing this patient for a follow-up. The patient underwent a successful PEG and trach insertion. The patient has a #[address] in [address]. PEG tube is also in place. He is doing well. He is on the same vent setting. His peak airway pressures around 26. He is on VC plus mode with tidal volume of 400 with rate of 20 and FiO2 of 40% and PEEP of 5. Chest x -ray findings are essentially stable. Tracheostomy tube is in a good location. Hemodynamically stable. The patient is producing adequate amount of urine output. He is on DuoNeb neb last treatment [id number]. He is on a combination of Pulmicort and this was and Perforomist twice a day. He is on IV Solu-Medrol which was tapered down to 40 mg every 12 hours. Tube feeds will be started today. We are also going to gradually wean off his sedation and assess his underlying mentation. No other significant events otherwise. The surgical procedures went without any additional complications. On today's evaluation 04/07/2018, the patient is off Diprivan. The patient is currently on Versed which is being weaned down and is currently down to 7 mg per hour. The patient is synchronous with the mechanical ventilator. He is more active. His opening up his eyes. He was able to follow some simple commands earlier. However he gets very anxious critically and at times he becomes worked up and tachycardic and tachypneic. Blood pressure is also on the higher side. Added clonidine for blood pressure control. The patient otherwise is tolerating his tube feeds. He remains on a mechanical ventilator and the vent settings are essentially unchanged. He is on assist control mode of ventilation, VC plus, with tidal volume of 400 and FiO2 of 40% and a PEEP of 5. Chest x-ray shows no acute abnormalities. No significant respiratory secretions. The patient is tolerating tube feeds. However he has not had any bowel movement yet. We'll add lactulose. Family is at the bedside. The patient seems to be comfortable. Would like to gradually wean him off the Versed. Weaning parameters will be checked once the patient is much more awake and alert. On 04/08/2018, the patient remains off Diprivan. It has been difficult to wean the Versed as the patient gets a autonomic reaction, and he becomes restless and tachycardic and hypertensive. We were able to cut him down to 3 mg of Versed per hour. Meanwhile, we had to use Cleviprex for blood pressure control. I also started this patient on clonazepam 1 mg twice a day. He is on clonidine for blood pressure control in addition. During the day, the patient became quite restless and later on he settled and currently is at the point where his opening his eyes and on few instances he was able to follow some commands. He seems to be more comfortable today. On a assist-control mode of ventilation. He is on a tidal volume 400 with an FiO2 of 40% and a PEEP of 5. Tube feeds were placed on hold as the patient is being weaned off the sedation. Orotracheal secretions are minimal. The patient a tracheostomy tube in place. We will start on lactulose for bowel movement activity. No fever. No chills. Chest x-ray findings are stable and the patient had no pneumothorax or evolving pneumonia. No fever or chills. His neurologic exam is nonfocal. On 04/09/2018 I'm seeing this patient for a follow-up. The patient is being still weaned off the patient. We were able to get this patient off Diprivan. He was down to 3 mg an hour of Versed infusion and he was still getting worked up and restless and agitated. He did follow some simple commands yesterday and his neurologic exam was nonfocal. Based on this, I added clonazepam 1 mg twice a day, Celexa 60 mg by mouth daily and I gave him Haldol. This morning it is much more comfortable and is opening his eyes and moving his extremities to command. Based on that, I made recommendations to further wean off Versed and discontinue. He is hemodynamically stable. He is on a mechanical ventilator for now. Vent settings are essentially unchanged. The patient has a #8 [address] tracheostomy tube in place. She'll feeds were temporally placed on hold pending further wean off the sedation as the patient was getting quite worked up and restless. The chest x-ray from yesterday shows no acute abnormalities. Abdominal film was also nonspecific. The patient did produce a bowel movement along with use of laxatives. She is on bronchodilators. The patient is on oral prednisone taper. The patient is also on Cleviprex for blood pressure control in addition to oral clonidine. Scopolamine patch was also added for excessive respiratory secretions. Objective - Vital Signs Vital signs: Vital Signs Temp 97.8 F 04/09/18 12:00 Pulse 105 H 04/09/18 13:00 Resp 24 04/09/18 13:00 BP 121/80 04/09/18 04:00 Pulse Ox 95 04/09/18 13:00 Intake & Output 04/08/18 04/09/18 04/09/18 18:59 06:59 18:59 Intake Total 1616.775 578.6 396.975 Output Total 1165 850 330 Balance 451.775 -271.4 66.975 Weight 75 kg 75 kg Intake: IV 1000 315 260 Levofloxacin 500Mg-D5w 100 100 Pmx 500 mg In Dextrose/ Water 1 100ml.bag @ 100 mls/hr IVPB Q24HR [facility] Rx# :[id number] Sodium Chloride 0.9% 1, 120 000 ml @ 20 mls/hr IV . Q24H HEATHER Rx#:[id number] Sodium Chloride 0.9% 1, 900 315 40 000 ml @ 75 mls/hr IV . [id number] [facility] Rx#:[id number] Intake, IV Titration 241.775 193.6 76.975 Amount Clevidipine Butyrate 25 91.200 193.6 50 mg In Empty Bag 1 bag @ 1 MG/HR 2 mls/hr IV .Q24H HEATHER Rx#:[id number] Midazolam HCl 200 mg In 50.575 26.975 Sodium Chloride 0.9% 60 ml @ 1 MG/HR 0.5 mls/hr IV .Q24H [facility]ATH[facility] Rx#: [id number] Propofol 1,000 mg In 100 Empty Bag 1 bag @ Titrate IV .Q0M HEATHER Rx#: [id number] Tube Feeding 175 70 Other 200 60 Output: Urine 1165 850 330 Other: Voiding Method Indwelling Catheter Indwelling Catheter Indwelling Catheter # Bowel Movements 1 ABP, PAP, CO, CI - Last Documented Arterial Blood Pressure 148/93 - Exam The patient is more constable comfortable as he is being weaned off the Versed drip and earlier this morning the patient was running at 3 mg of Versed drip per hour.. currently has a Shiley tracheostomy tube #8. The patient is synchronous with the mechanical ventilator. No obvious signs of any respiratory distress at this point in time Head exam was generally normal. There was no scleral icterus or corneal arcus. Mucous membranes were moist. Neck was supple and without jugular venous distension, thyromegaly, or carotid bruits. Carotids were easily palpable bilaterally. There was no adenopathy. The patient has a left subclavian triple-lumen catheter in place. The patient has a #8 Shiley tracheostomy tube in place which is nonfenestrated uncuffed. Lungs sounds are diminished bilaterally along with some few scattered expiratory wheezes heard throughout the lung joseph and there is pronation of expiratory phase of breathing. Cardiac exam revealed the PMI to be normally situated and sized. The rhythm was regular and no extrasystoles were noted during several minutes of auscultation. The first and second heart sounds were normal and physiologic splitting of the second heart sound was noted. There were no murmurs, rubs, clicks, or gallops. Abdominal exam revealed normal bowel sounds. The abdomen was soft, non-tender, and without masses, organomegaly, or appreciable enlargement of the abdominal aorta. The PEG tube site is dry clean and intact. Examination of the extremities revealed easily palpable radial, femoral and pedal pulses. There was no cyanosis, clubbing or edema. The patient has an art line in his right upper extremity Examination of the skin revealed no evidence of significant rashes, suspicious appearing nevi or other concerning lesions. Neurologically the patient is a small comfortable compared to yesterday. He is moving all 4 extremities. He is following some simple commands. Pupils are equal and reactive to light. No facial asymmetry. Positive cough. Positive gag reflex. - Labs CBC & Chem 7: 04/09/18 04:50 04/09/18 04:50 Labs: Abnormal Lab Results - Last 24 Hours (Table) 04/08/18 04/08/18 04/09/18 Range/Units 16:00 20:37 00:01 RBC (4.30-5.90) m/uL Hgb (13.0-17.5) gm/dL Hct (39.0-53.0) % ABG pH (7.35-7.45) ABG pO2 (83-108) mmHg ABG HCO3 (21-25) mmol/L ABG Total CO2 (19-24) mmol/L Carbon Dioxide (22-30) mmol/L BUN (9-20) mg/dL Creatinine (0.66-1.25) mg/dL POC Glucose (mg/dL) 139 H 114 H 101 H (75-99) mg/dL Calcium (8.4-10.2) mg/dL 04/09/18 04/09/18 04/09/18 Range/Units 04:50 04:50 05:03 RBC 3.47 L (4.30-5.90) m/uL Hgb 11.2 L (13.0-17.5) gm/dL Hct 33.4 L (39.0-53.0) % ABG pH 7.48 H (7.35-7.45) ABG pO2 74 L (83-108) mmHg ABG HCO3 33 H (21-25) mmol/L ABG Total CO2 34 H (19-24) mmol/L Carbon Dioxide 33 H (22-30) mmol/L BUN 27 H (9-20) mg/dL Creatinine 0.47 L (0.66-1.25) mg/dL POC Glucose (mg/dL) (75-99) mg/dL Calcium 8.2 L (8.4-10.2) mg/dL 04/09/18 Range/Units 12:06 RBC (4.30-5.90) m/uL Hgb (13.0-17.5) gm/dL Hct (39.0-53.0) % ABG pH (7.35-7.45) ABG pO2 (83-108) mmHg ABG HCO3 (21-25) mmol/L ABG Total CO2 (19-24) mmol/L Carbon Dioxide (22-30) mmol/L BUN (9-20) mg/dL Creatinine (0.66-1.25) mg/dL POC Glucose (mg/dL) 101 H (75-99) mg/dL Calcium (8.4-10.2) mg/dL Microbiology - Last 24 Hours (Table) 04/08/18 15:55 Gram Stain - Preliminary Sputum Sputum Culture - Preliminary Assessment and Plan Plan: Assessment 1 acute COPD exacerbation secondary to an acute influenza pulmonary infection. The patient failed initial weaning. The patient is post tracheostomy tube insertion. He completed his course of Tamiflu. He is doing well. He is ever pressures have improved and COPD exacerbations gradually improving. He was a very difficult to wean as the patient remains quite agitated and anxious while off sedation. He is for tracheostomy tube insertion. Currently off Diprivan. The patient is still being weaned off the sedation and currently is on a lower dose of Versed drip. We had to start him on a the Cleviprex for blood pressure control. We also had to start clonidine for blood pressure control. The patient doing better as the day goes by. The patient is less agitated. We were able to get some response from him. I'm considering a CAT scan of the head if he doesn't show adequate response and failure to wean off today sedation within the next 24 hours. I still think that his neurologic exam is nonfocal. There may be a component of delirium tremens. There may be a component of prolonged sedation effect as the patient was taken significant amount of sedation to control his agitation and restlessness. Overall COPD is stable. Airway pressures are lower. He is comfortable while being on a assist- control mode of ventilation, volume cycle. Chest x-ray findings are essentially stable. On today's evaluation of 04/09/2018, I was able to take this patient of the Versed. We'll continuing the rest of the medication the patient is currently on a combination of clonazepam 1 mg twice a day, Celexa 60 mg by mouth daily and Haldol as needed for restlessness and agitation. He was able to follow some simple commands. He opens eyes spontaneously. He opens his eyes when his called his name. He tracks and he follows commands. 2 acute on top of chronic hypoxic respiratory failure, secondary to above 3 advanced COPD at baseline with FEV1 of less than 30% of predicted 4 previous hospitalization for COPD exacerbations last one being in January 2018 5 smoker 6 chronic anxiety 7 acute on Chronic hypercapnic respiratory failure secondary to COPD 8 obstructive sleep apnea maintained on CPAP at a pressure of 9 cm of water on outpatient basis 9 enteral feeding for nutritional support Plan Continue clonazepam 1 mg twice a day, Celexa 60 mg by mouth daily and Haldol as needed. Continue clonidine for blood pressure control. Keep the patient on Cleviprex and weaned off based on the blood pressure control. Hold the tube feeds for 24 hours. The patient is hemodynamically stable. The patient is on bronchodilators. The patient is off Solu-Medrol and completing a course of prednisone burst taper. The patient completed the course of Tamiflu. He also completed the course of Levaquin. Levaquin was discontinued if the chest x-ray from today shows no acute abnormalities. We'll proceed with a repeat chest x- ray today. Blood gases was reviewed. He was dynamically stable. We'll continue to follow. We'll make further recommendations based on his progress. Is a critically care evaluation that was done and more than 30 minutes. Time with Patient: Greater than 30
--- NOTE | 2018-04-09 14:09 | XR ---
EXAMINATION TYPE: XR chest 1V DATE OF EXAM: 04/09/2018 COMPARISON: Prior chest x-ray 04/08/2018 HISTORY: Influenza, abnormal chest x-ray TECHNIQUE: Single frontal view of the chest is obtained. FINDINGS: Tracheostomy tube, left subclavian central venous catheter are stable. There are cardiac l lyle. No evident pneumothorax, airspace disease or pleural effusion. Cardiomediastinal silhouette, pu lmonary vascularity and jean carlos are within normal limits. IMPRESSION: No acute process.
[2018-04-09 16:16] LABS: Glucose,Whole Blood 121 mg/dL (75-99)
[2018-04-09 20:11] LABS: Glucose,Whole Blood 133 mg/dL (75-99)
[2018-04-09] MEDS: CITALOPRAM HYDROBROMIDE 20 MG TAB PO SCH (21:11)
--- NOTE | 2018-04-09 22:42 | P.PN ---
Subjective This is a 57-year-old male with a history of severe COPD, nicotine dependence, sleep apnea. who presents with worsening shortness of breath and resp distress, which was going on for 3 days, patient thought that he got some kind of infection of from his . He had myalgias and fever or chills. No chest pain. He needed CPAP during the transport. pt got intubated and he is sedated now , he in the ICU, most of the information was taken from staff and medical records. He came yesterday with respiratory distress with respiratory rate above 30 at times, systolic blood pressure was 120-150s, this morning 95/70. CBC was unremarkable. ABG showing retaining CO2 with acidemia and acidosis. Potassium 5.2, creatinine 0.5. Magnesium 2.5. Chest x-ray, no acute process per Radiologist. EKG shows sinus tachycardia with QTC 422. rate at 133. influenza attesting back positive. 04/06/2018 Patient still remains in the ICU, he is intubated. Vitals are acceptable. CBC and BMP were reviewed with no significant abnormality and sugar is controlled. Culture shows no growth. Chest x-ray: COPD. Patient is been followed up by pulmonary, critical care team patient is status post PEG tube and tracheostomy. Pulmonary team are planning to wean of his sedation. 04/07/2018 Patient status post tracheostomy, still on vent dependent. Patient opened eyes to verbal and tactile stimuli but he is not responding. Chest x-ray showed no abnormality as per radiologist. Patient is being followed up by critical care team closely 04/08/2018 Patient still on tracheal collar, Versed has trying to be weaned down by critical care team however patient still making much progress and he is not waking up. He has capacity Tanmay and staff are sending sputum culture. Also he has some fungal infection in the perineal area which can be treated locally. Critical care team input is appreciated. Abdominal x-ray: Nonspecific abnormality. Chest x-ray stable abnormalities with no acute event as per radiology report. No leukocytosis. Creatinine 0.5, potassium 5.4. Magnesium 2.8. Continue on prednisone 40 mg daily 04/09/2018 pt remains in the ICU, pt is been weaned off versed gradually , he was noticed today a little more responsive to tectile and verbal stimuli, with benzodiazepine, celexa and haldol , also noted he is less agitated. vitals are stable. labs reviewed. he is on prednisone 40 mg daily Objective - Vital Signs Vital signs: Vital Signs Temp 98.5 F 04/09/18 16:00 Pulse 113 H 04/09/18 19:19 Resp 15 04/09/18 19:00 BP 121/80 04/09/18 04:00 Pulse Ox 96 04/09/18 19:00 Intake & Output 04/09/18 04/09/18 04/10/18 06:59 18:59 06:59 Intake Total 578.6 686.308 55 Output Total 850 615 40 Balance -271.4 71.308 15 Weight 75 kg Intake: IV 315 360 20 Levofloxacin 500Mg-D5w 100 Pmx 500 mg In Dextrose/ Water 1 100ml.bag @ 100 mls/hr IVPB Q24HR [facility] Rx# :[id number] Sodium Chloride 0.9% 1, 220 20 000 ml @ 20 mls/hr IV . Q24H [facility] Rx#:[id number] Sodium Chloride 0.9% 1, 315 40 000 ml @ 75 mls/hr IV . [id number] [facility] Rx#:[id number] Intake, IV Titration 193.6 196.308 Amount Clevidipine Butyrate 25 193.6 169.333 mg In Empty Bag 1 bag @ 1 MG/HR 2 mls/hr IV .Q24H [facility] Rx#:[id number] Midazolam HCl 200 mg In 26.975 Sodium Chloride 0.9% 60 ml @ 1 MG/HR 0.5 mls/hr IV .Q24H [facility] Rx#: [id number] Tube Feeding 70 70 35 Other 60 Output: Urine 850 615 40 Other: Voiding Method Indwelling Catheter Indwelling Catheter ABP, PAP, CO, CI - Last Documented Arterial Blood Pressure 129/60 - Exam GENERAL: Patient is sedated, not responsive HEENT: Pupils are round and equally reacting to light. EOMI. No scleral icterus. No conjunctival pallor. Normocephalic, atraumatic. No pharyngeal erythema. No -thyromegaly. Tracheostomy in Place CARDIOVASCULAR: S1 and S2 present. No murmurs, rubs, or gallops. PULMONARY: Chest is clear to auscultation, no wheezing or crackles. -ABDOMEN: Soft, nontender, nondistended, normoactive bowel sounds. No palpable organomegaly. Status post PEG placement MUSCULOSKELETAL: No joint swelling or deformity. EXTREMITIES: No cyanosis, clubbing, or pedal edema. NEUROLOGICAL: Gross neurological examination did not reveal any focal deficits. SKIN: No rashes. - Labs CBC & Chem 7: 04/09/18 04:50 04/09/18 04:50 Labs: Abnormal Lab Results - Last 24 Hours (Table) 04/08/18 04/09/18 04/09/18 Range/Units 20:37 00:01 04:50 RBC 3.47 L (4.30-5.90) m/uL Hgb 11.2 L (13.0-17.5) gm/dL Hct 33.4 L (39.0-53.0) % ABG pH (7.35-7.45) ABG pO2 (83-108) mmHg ABG HCO3 (21-25) mmol/L ABG Total CO2 (19-24) mmol/L Carbon Dioxide (22-30) mmol/L BUN (9-20) mg/dL Creatinine (0.66-1.25) mg/dL POC Glucose (mg/dL) 114 H 101 H (75-99) mg/dL Calcium (8.4-10.2) mg/dL 04/09/18 04/09/18 04/09/18 Range/Units 04:50 05:03 12:06 RBC (4.30-5.90) m/uL Hgb (13.0-17.5) gm/dL Hct (39.0-53.0) % ABG pH 7.48 H (7.35-7.45) ABG pO2 74 L (83-108) mmHg ABG HCO3 33 H (21-25) mmol/L ABG Total CO2 34 H (19-24) mmol/L Carbon Dioxide 33 H (22-30) mmol/L BUN 27 H (9-20) mg/dL Creatinine 0.47 L (0.66-1.25) mg/dL POC Glucose (mg/dL) 101 H (75-99) mg/dL Calcium 8.2 L (8.4-10.2) mg/dL 04/09/18 Range/Units 16:15 RBC (4.30-5.90) m/uL Hgb (13.0-17.5) gm/dL Hct (39.0-53.0) % ABG pH (7.35-7.45) ABG pO2 (83-108) mmHg ABG HCO3 (21-25) mmol/L ABG Total CO2 (19-24) mmol/L Carbon Dioxide (22-30) mmol/L BUN (9-20) mg/dL Creatinine (0.66-1.25) mg/dL POC Glucose (mg/dL) 121 H (75-99) mg/dL Calcium (8.4-10.2) mg/dL Microbiology - Last 24 Hours (Table) 04/08/18 15:55 Gram Stain - Preliminary Sputum Sputum Culture - Preliminary Assessment and Plan Assessment: -Acute hypoxemic and hypercapnic respiratory failure needed intubation -Status post Acute influenza infection -Acute severe exacerbation COPD with acute purulent tracheobronchitis -Acute on chronic hypoxic respiratory failure -Ongoing nicotine dependence -Obstructive sleep apnea, wears BiPAP at home Plan: This is a pleasant 57 years old male who presents with severe COPD exacerbation and influenza a. Patient was placed in the critical care unit on admission. Pulmonary team are following the patient, continue with present treatment, steroids, oxygen therapy. Patient finished his antibiotic course. Labs and medication were reviewed.. Continue same treatment. Continue with symptomatic treatment. Resume home medication. Monitor lytes and vitals. DVT and GI prophylaxis. Further recommendations of the clinical course of the patient DVT prophylaxis: Subcutaneous heparin GI Prophylaxis: Pepcid Prognosis is guarded
[2018-04-09 23:52] LABS: Glucose,Whole Blood 134 mg/dL (75-99)
[2018-04-10] MEDS: CLEVIDIPINE BUTYRATE 25 MG in EMPTY BAG 1 BAG IV SCH ×8 (00:12→21:51)
[2018-04-10 03:46] LABS: Glucose,Whole Blood 123 mg/dL (75-99)
[2018-04-10] MEDS: HYDROmorphone 1 MG/ML 1 ML SYRINGE IVP PRN ×6 (03:56→23:47)
[2018-04-10] MEDS: INSULIN ASPART (NovoLOG) 100 UNIT/ML VIAL SQ SCH ×6 (03:58→23:48)
[2018-04-10 05:03] LABS: HGB 11.3 gm/dL (13.0-17.5); MCHC 33.4 g/dL (31.0-37.0); MCV 95.8 fL (80.0-100.0); Mean Platelet Volume 7.2; Platelet Count 228 k/uL (150-450); RBC 3.55 m/uL (4.30-5.90); RDW 14.2 % (11.5-15.5); WBC 9.2 k/uL (3.8-10.6)
[2018-04-10 05:12] LABS: ABG Base Excess 7.9 mmol/L; ABG HCO3 33 mmol/L (21-25); ABG Oxygen Saturation 96.9 % (94-97); ABG PCO2 51 mmHg (35-45); ABG PH 7.42 (7.35-7.45); ABG PO2 86 mmHg (83-108); ABG TCO2 34 mmol/L (19-24)
[2018-04-10 05:15] LABS: Anion Gap 4 mmol/L; Blood Urea Nitrogen 28 mg/dL (9-20); Calcium 8.1 mg/dL (8.4-10.2); Carbon Dioxide 31 mmol/L (22-30); Chloride 100 mmol/L (98-107); Glucose 103 mg/dL (74-99); Magnesium 2.1 mg/dL (1.6-2.3); Phosphorus 3.8 mg/dL (2.5-4.5); Potassium 4.7 mmol/L (3.5-5.1); Sodium 135 mmol/L (137-145)
--- NOTE | 2018-04-10 07:05 | XR ---
EXAMINATION TYPE: XR chest 1V portable DATE OF EXAM: 04/10/2018 CLINICAL HISTORY: Difficulty breathing and influenza progress study. TECHNIQUE: Single AP portable semiupright view of the chest is obtained. COMPARISON: Chest x-ray from one day earlier and older studies. FINDINGS: The tracheostomy tube and left-sided subclavian central venous catheter are stable in appe arance. Overlying EKG leads are redemonstrated. There is chronic parenchymal change without suspiciou s new focal airspace opacity, pleural effusion, or pneumothorax seen bilaterally. Cardiac silhouette size is stable and within normal limits. Osseous structures are intact. IMPRESSION: Overall stable findings, chronic changes without acute pulmonary process.
[2018-04-10] MEDS: BUDESONIDE 1 MG/2 ML NEBU INHALATION SCH ×2 (07:09→19:38)
[2018-04-10] MEDS: IPRATROPIUM-ALBUTEROL 3 ML NEB INHALATION SCH ×4 (07:09→19:38)
[2018-04-10] MEDS: FORMOTEROL FUMARATE 20 MCG/2 ML NEBU INHALATION SCH ×2 (07:09→19:38)
[2018-04-10] MEDS: clonazePAM 1 MG TAB PO SCH ×2 (08:12→21:06)
[2018-04-10] MEDS: NYSTATIN 100,000 UNIT/GM POWD 15 GM TOPICAL SCH ×2 (08:12→21:06)
[2018-04-10] MEDS: HEPARIN SODIUM,PORCINE 5,000 UNIT/ML 1 ML VIAL SQ SCH ×3 (08:12→23:49)
[2018-04-10] MEDS: LACTULOSE 20 GM/30 ML CUP PO SCH (08:12)
[2018-04-10] MEDS: FAMOTIDINE 20 MG/2 ML VIAL IV SCH ×2 (08:12→21:06)
[2018-04-10] MEDS: CHLORHEXIDINE GLUCONATE 15 ML CUP MUCOUS MEM SCH ×2 (08:12→21:05)
[2018-04-10] MEDS: predniSONE 20 MG TAB PO SCH (08:12)
[2018-04-10 08:17] LABS: Glucose,Whole Blood 103 mg/dL (75-99)
[2018-04-10] MEDS: cloNIDine HCL 0.2 MG TAB PO SCH ×3 (09:09→21:06)
[2018-04-10 12:16] LABS: Glucose,Whole Blood 137 mg/dL (75-99)
[2018-04-10] MEDS: SODIUM CHLORIDE 0.9% 1,000 ML IV SCH (12:25)
--- NOTE | 2018-04-10 13:29 | P.PN ---
Subjective This is a 57-year-old male with a history of severe COPD, nicotine dependence, sleep apnea. who presents with worsening shortness of breath and resp distress, which was going on for 3 days, patient thought that he got some kind of infection of from his . He had myalgias and fever or chills. No chest pain. He needed CPAP during the transport. pt got intubated and he is sedated now , he in the ICU, most of the information was taken from staff and medical records. He came yesterday with respiratory distress with respiratory rate above 30 at times, systolic blood pressure was 120-150s, this morning 95/70. CBC was unremarkable. ABG showing retaining CO2 with acidemia and acidosis. Potassium 5.2, creatinine 0.5. Magnesium 2.5. Chest x-ray, no acute process per Radiologist. EKG shows sinus tachycardia with QTC 422. rate at 133. influenza attesting back positive. 04/06/2018 Patient still remains in the ICU, he is intubated. Vitals are acceptable. CBC and BMP were reviewed with no significant abnormality and sugar is controlled. Culture shows no growth. Chest x-ray: COPD. Patient is been followed up by pulmonary, critical care team patient is status post PEG tube and tracheostomy. Pulmonary team are planning to wean of his sedation. 04/07/2018 Patient status post tracheostomy, still on vent dependent. Patient opened eyes to verbal and tactile stimuli but he is not responding. Chest x-ray showed no abnormality as per radiologist. Patient is being followed up by critical care team closely 04/08/2018 Patient still on tracheal collar, Versed has trying to be weaned down by critical care team however patient still making much progress and he is not waking up. He has capacity Tanmay and staff are sending sputum culture. Also he has some fungal infection in the perineal area which can be treated locally. Critical care team input is appreciated. Abdominal x-ray: Nonspecific abnormality. Chest x-ray stable abnormalities with no acute event as per radiology report. No leukocytosis. Creatinine 0.5, potassium 5.4. Magnesium 2.8. Continue on prednisone 40 mg daily 04/09/2018 pt remains in the ICU, pt is been weaned off versed gradually , he was noticed today a little more responsive to tectile and verbal stimuli, with benzodiazepine, celexa and haldol , also noted he is less agitated. vitals are stable. labs reviewed. he is on prednisone 40 mg daily 04/10/2018 pt remains in the ICU, still on vent, pulmonary/critical care team are following the pt and their input is appreciated. at bedside states that patient was drinking alcohol occasionally, his long-time smoker usually smokes cigars that he was trying to cut down to about half pack per day until about 2 months prior to admission when he quit, except a few days prior to admission he has 1 cigarettes and 8 drinks of alcohol. Patient Vitas looks stable. WBC is 9.2K, hemoglobin stable at 11.3. Platelets 228. Sodium 135. Creatinine 0.5. Objective - Vital Signs Vital signs: Vital Signs Temp 98.5 F 04/10/18 12:00 Pulse 90 04/10/18 13:00 Resp 16 04/10/18 13:00 BP 121/80 04/10/18 12:00 Pulse Ox 98 04/10/18 13:00 Intake & Output 04/09/18 04/10/18 04/10/18 18:59 06:59 18:59 Intake Total 265.460 2575.667 544.500 Output Total 615 680 410 Balance 71.308 341.667 134.500 Weight 75 kg 76.3 kg Intake: IV 360 240 120 Levofloxacin 500Mg-D5w 100 Pmx 500 mg In Dextrose/ Water 1 100ml.bag @ 100 mls/hr IVPB Q24HR [facility] Rx# :[id number] Sodium Chloride 0.9% 1, 220 240 120 000 ml @ 20 mls/hr IV . Q24H [facility] Rx#:[id number] Sodium Chloride 0.9% 1, 40 000 ml @ 75 mls/hr IV . [id number] [facility] Rx#:[id number] Intake, IV Titration 196.308 201.667 94.500 Amount Clevidipine Butyrate 25 169.333 201.667 94.500 mg In Empty Bag 1 bag @ 1 MG/HR 2 mls/hr IV .Q24H [facility] Rx#:[id number] Midazolam HCl 200 mg In 26.975 Sodium Chloride 0.9% 60 ml @ 1 MG/HR 0.5 mls/hr IV .Q24H [facility] Rx#: [id number] Tube Feeding 70 460 240 Other 60 120 90 Output: Urine 615 680 410 Other: Voiding Method Indwelling Catheter Indwelling Catheter Indwelling Catheter ABP, PAP, CO, CI - Last Documented Arterial Blood Pressure 136/63 - Exam GENERAL: Patient is sedated, not responsive HEENT: Pupils are round and equally reacting to light. EOMI. No scleral icterus. No conjunctival pallor. Normocephalic, atraumatic. No pharyngeal erythema. No -thyromegaly. Tracheostomy in Place CARDIOVASCULAR: S1 and S2 present. No murmurs, rubs, or gallops. PULMONARY: Chest is clear to auscultation, no wheezing or crackles. -ABDOMEN: Soft, nontender, nondistended, normoactive bowel sounds. No palpable organomegaly. Status post PEG placement MUSCULOSKELETAL: No joint swelling or deformity. EXTREMITIES: No cyanosis, clubbing, or pedal edema. NEUROLOGICAL: Gross neurological examination did not reveal any focal deficits. SKIN: No rashes. - Labs CBC & Chem 7: 04/10/18 04:10 04/10/18 04:10 Labs: Abnormal Lab Results - Last 24 Hours (Table) 04/09/18 04/09/18 04/09/18 Range/Units 16:15 20:08 23:50 RBC (4.30-5.90) m/uL Hgb (13.0-17.5) gm/dL Hct (39.0-53.0) % ABG pCO2 (35-45) mmHg ABG HCO3 (21-25) mmol/L ABG Total CO2 (19-24) mmol/L Sodium (137-145) mmol/L Carbon Dioxide (22-30) mmol/L BUN (9-20) mg/dL Creatinine (0.66-1.25) mg/dL Glucose (74-99) mg/dL POC Glucose (mg/dL) 121 H 133 H 134 H (75-99) mg/dL Calcium (8.4-10.2) mg/dL 04/10/18 04/10/18 04/10/18 Range/Units 03:45 04:10 04:10 RBC 3.55 L (4.30-5.90) m/uL Hgb 11.3 L (13.0-17.5) gm/dL Hct 34.0 L (39.0-53.0) % ABG pCO2 (35-45) mmHg ABG HCO3 (21-25) mmol/L ABG Total CO2 (19-24) mmol/L Sodium 135 L (137-145) mmol/L Carbon Dioxide 31 H (22-30) mmol/L BUN 28 H (9-20) mg/dL Creatinine 0.57 L (0.66-1.25) mg/dL Glucose 103 H (74-99) mg/dL POC Glucose (mg/dL) 123 H (75-99) mg/dL Calcium 8.1 L (8.4-10.2) mg/dL 04/10/18 04/10/18 04/10/18 Range/Units 05:10 08:15 12:14 RBC (4.30-5.90) m/uL Hgb (13.0-17.5) gm/dL Hct (39.0-53.0) % ABG pCO2 51 H (35-45) mmHg ABG HCO3 33 H (21-25) mmol/L ABG Total CO2 34 H (19-24) mmol/L Sodium (137-145) mmol/L Carbon Dioxide (22-30) mmol/L BUN (9-20) mg/dL Creatinine (0.66-1.25) mg/dL Glucose (74-99) mg/dL POC Glucose (mg/dL) 103 H 137 H (75-99) mg/dL Calcium (8.4-10.2) mg/dL Microbiology - Last 24 Hours (Table) 04/08/18 15:55 Gram Stain - Final Sputum Sputum Culture - Final Assessment and Plan Assessment: -Acute hypoxemic and hypercapnic respiratory failure needed intubation -Status post Acute influenza infection -Acute severe exacerbation COPD with acute purulent tracheobronchitis -Acute on chronic hypoxic respiratory failure -Ongoing nicotine dependence -Obstructive sleep apnea, wears BiPAP at home Plan: This is a pleasant 57 years old male who presents with severe COPD exacerbation and influenza a. Patient was placed in the critical care unit on admission. Pulmonary team are following the patient, continue with present treatment, steroids, oxygen therapy. Patient finished his antibiotic course. Labs and medication were reviewed.. Continue same treatment. Continue with symptomatic treatment. Resume home medication. Monitor lytes and vitals. DVT and GI prophylaxis. Further recommendations of the clinical course of the patient DVT prophylaxis: Subcutaneous heparin GI Prophylaxis: Pepcid Prognosis is guarded
--- NOTE | 2018-04-10 13:35 | P.PN ---
Subjective Progress Note Date: 04/10/18 A 57-year-old male patient with advanced COPD with an FEV1 of less than 30% of predicted and chronic hypoxic respiratory failure with reduction dependent who also has history of obstructive sleep apnea mechanical CPAP therapy. The patient has an AHI of 23 and the patient has been maintained on CPAP therapy at a pressure of 9 cm of water on outpatient basis. In terms of COPD, the patient has been receiving Dulera, theophylline and maintenance 5 mg of prednisone a daily basis. The patient had 2 hospitalizations back in 2018 in the last hospitalization was in January 2018 for an acute on top of chronic hypoxic respiratory failure and COPD exacerbation. The patient was treated and the patient was discharged home. Over the past 24 hours, the patient became acutely ill. His had a rest or checked infection subsequently he got sick and within 24 hours he started having fever and chills and cough and congestion and shortness of breath and for that reason he was brought into the hospital. On route, the patient was placed on BiPAP. The same was done in the emergency department. He checked positive for influenza a and he was started on Tamiflu in addition to bronchodilators and steroids. He continued to be on a BiPAP and later on he failed BiPAP and he had to be intubated and placed on a mechanical ventilator. This morning, the patient is an assist-control mode of ventilation. His tidal volumes of 400 with an FiO2 of 50% with a PEEP of 5 and respiratory rate of 20. His peak air pressure is around and static air pressure of 22. There has been improvement in his acid-base status. The morning blood gas showed a pH of 7.32 with a pCO2 of 55 and pO2 of 172 and this was on FiO2 of 50%. Chest x-rays consistent with COPD and there is no evidence of any pulmonary infiltration or pneumonia. The patient had some diminished urine output and the patient is currently on IV fluids at the rate of 75 mL an hour. No leukocytosis. Renal function is stable. Currently sedated with Diprivan and, comfortable. Hemodynamically stable on no pressors. No reported chest pain. No reported swelling in lower extremities. Family is at the bedside. On today's evaluation of 04/01/2018 I'm seeing this patient for a follow-up. The patient remains sedated, comfortable mechanical ventilator. The patient is a tidal volume of 450 with an FiO2 of 40% and PEEP of 5 and the rate of 20. Peak airway pressures 31 and static pressures around 21. Chest x-ray showing hyperinflation without any acute pulmonary abnormalities or infiltrates. The patient is bronchospastic and wheezy. The patient has no auto PEEP. The patient's blood gases from today showed a pH of 7.35 with a pCO2 of 50 and pO2 of 126. The patient tolerating his tube feeds. The patient is hemodynamically stable. Remains on examination bronchodilators and steroids and antibiotics. The sputum cultures still negative. Blood cultures negative. No pressors. No other significant events overnight. Family is at the bedside. This is going to be a difficult wean knowing that the patient has advanced COPD with a baseline FEV1 of 30% of predicted. The patient also has chronic hypoxic respiratory failure. He is also known to have obstructive sleep apnea. On 04/02/2018 patient is being seen for a follow-up. Remains on a mechanical ventilator. Remains sedated. He was given a sedation holiday today which went very poorly. The patient aroused quite uncomfortable and he was fighting the respirator. He was completely synchronous. He became tachycardic and tachypneic and subsequently his oxygen saturations dropped and he was not getting his volumes. At that point, the sedation holiday was discontinued and the patient was placed back on sedation. He was given also a short spontaneous breathing trial which ended up being a failure. For now, the patient is an assist-control mode at the rate of 20 with tidal volume of 400 and FiO2 of 40% and PEEP of 5. I kept him on Diprivan. I switched him to ABC plus mode with a Itime of 0.9 seconds. His blood gases from earlier this morning showed a pH of 7.34 with a pCO2 of 53 and pO2 of 91. No significant orotracheal secretions. Peak airway pressures still at 30. No auto PEEP. The chest x-ray from today was no significant abnormalities. It correlates with COPD. All of the lines are in place. The patient is otherwise hemodynamically stable. He is receiving his tube feeds. No hemodynamic instability. He is producing adequate amount of urine output. He is afebrile. Family is at the bedside. Obviously this will be a difficult to wean knowing that his baseline FEV1 is around 30% of predicted and he has chronic hypoxic respiratory failure in addition to obstructive sleep apnea. On 04/03/2018 I'm seeing this patient for a follow-up. The patient remains on a mechanical ventilator. Attempts to switch him to Precedex yesterday failed and the patient was unable to hold his anxiety and agitation. For that reason the patient was started on clonazepam 1 mg twice a day and this morning he was gradually went off Diprivan. After dropping the Diprivan dose down to 20 mics per KG per minute, the patient started having increased anxiety, agitation, restlessness, hypertension, tachypnea, tachycardia, asynchronous with a mechanical ventilator. Based on all this, the attempt was aborted and the patient was placed back on sedation. He remains on a VC plus mode of mechanical ventilation. His rate is at 20 with tidal volume 400 and FiO2 of 40 % with a PEEP of 5. Chest x-ray shows no acute abnormalities and blood gases show a pH of 7.41 with a pCO2 50 and pO2 of 87. Rest of the blood work and electrodes are all within normal limits. He is tolerating his tube feeds. He is at goal for the time being. No edema no signs of any fluid overload. No fever or chills. No respiratory secretions. Had a lengthy discussion with the family and this will be a prolonged and slow wean and I've made recommendations for a PEG and trach probably early next week. We'll consult general surgery regarding a PEG and trach insertion. On 04/04/2018, the patient remains on a mechanical ventilator. We have made adjustments on the patient's sedation. Currently the patient on Versed drip at 8 mg/h and the patient is also on propofol which is down to 20 g per KG per minute. The patient is doing well. Very symptoms with the mechanical ventilator. Still on the same vent setting. No sedation holiday was given as the patient is quite agitated and restless and asynchronous with a mechanical ventilator and he would obviously failed sedation holiday. Note that he does not fully gaining consensual consciousness when he is off the sedation. Otherwise, he remains hemodynamically stable. He remains on a VC plus mode of mechanical ventilation. He is on a tidal volume of 400 with a rate of 20 and an FiO2 of 40% with a PEEP of 5. Chest x-ray findings are as essentially unchanged. The blood gases from today show a pH of 7.38 with a pCO2 of 61 and pO2 of 86. No fever. No chills. Tolerating his tube feeds. The general surgeon was consulted for a PEG and a tracheostomy tube insertion in a.m. On 04/05/2018 the patient remains on a mechanical ventilator. This morning he is on a 30 mg of Versed drip and propofol is running at 50 g per KG per minute. While sedated. The plan is to proceed with a PEG and trach today. He remains an assist-control mode of ventilation with a rate of 20, tidal volume of 400 and FiO2 of 40% with a PEEP of 5. No fever. No chills. The blood gases from today showed a pH of 7.45 with a pCO2 of 55 and pO2 of 86. Potassium level is at 5.7. I discussed this with anesthesiology. They wanted a repeat potassium prior to this patient going and proceeding with his PEG and trach. I gave the patient D50 and insulin and his potassium level needs to be repeated. Otherwise, his current tube feeds on hold. His chest x-ray from today is showing some mild interstitial prominence and ET tube is in a good location. The patient also had a central line which is in good location. He has background COPD. On 04/06/2018 I'm seeing this patient for a follow-up. The patient underwent a successful PEG and trach insertion. The patient has a #[address] in [address]. PEG tube is also in place. He is doing well. He is on the same vent setting. His peak airway pressures around 26. He is on VC plus mode with tidal volume of 400 with rate of 20 and FiO2 of 40% and PEEP of 5. Chest x -ray findings are essentially stable. Tracheostomy tube is in a good location. Hemodynamically stable. The patient is producing adequate amount of urine output. He is on DuoNeb neb last treatment [id number]. He is on a combination of Pulmicort and this was and Perforomist twice a day. He is on IV Solu-Medrol which was tapered down to 40 mg every 12 hours. Tube feeds will be started today. We are also going to gradually wean off his sedation and assess his underlying mentation. No other significant events otherwise. The surgical procedures went without any additional complications. On today's evaluation 04/07/2018, the patient is off Diprivan. The patient is currently on Versed which is being weaned down and is currently down to 7 mg per hour. The patient is synchronous with the mechanical ventilator. He is more active. His opening up his eyes. He was able to follow some simple commands earlier. However he gets very anxious critically and at times he becomes worked up and tachycardic and tachypneic. Blood pressure is also on the higher side. Added clonidine for blood pressure control. The patient otherwise is tolerating his tube feeds. He remains on a mechanical ventilator and the vent settings are essentially unchanged. He is on assist control mode of ventilation, VC plus, with tidal volume of 400 and FiO2 of 40% and a PEEP of 5. Chest x-ray shows no acute abnormalities. No significant respiratory secretions. The patient is tolerating tube feeds. However he has not had any bowel movement yet. We'll add lactulose. Family is at the bedside. The patient seems to be comfortable. Would like to gradually wean him off the Versed. Weaning parameters will be checked once the patient is much more awake and alert. On 04/08/2018, the patient remains off Diprivan. It has been difficult to wean the Versed as the patient gets a autonomic reaction, and he becomes restless and tachycardic and hypertensive. We were able to cut him down to 3 mg of Versed per hour. Meanwhile, we had to use Cleviprex for blood pressure control. I also started this patient on clonazepam 1 mg twice a day. He is on clonidine for blood pressure control in addition. During the day, the patient became quite restless and later on he settled and currently is at the point where his opening his eyes and on few instances he was able to follow some commands. He seems to be more comfortable today. On a assist-control mode of ventilation. He is on a tidal volume 400 with an FiO2 of 40% and a PEEP of 5. Tube feeds were placed on hold as the patient is being weaned off the sedation. Orotracheal secretions are minimal. The patient a tracheostomy tube in place. We will start on lactulose for bowel movement activity. No fever. No chills. Chest x-ray findings are stable and the patient had no pneumothorax or evolving pneumonia. No fever or chills. His neurologic exam is nonfocal. On 04/09/2018 I'm seeing this patient for a follow-up. The patient is being still weaned off the patient. We were able to get this patient off Diprivan. He was down to 3 mg an hour of Versed infusion and he was still getting worked up and restless and agitated. He did follow some simple commands yesterday and his neurologic exam was nonfocal. Based on this, I added clonazepam 1 mg twice a day, Celexa 60 mg by mouth daily and I gave him Haldol. This morning it is much more comfortable and is opening his eyes and moving his extremities to command. Based on that, I made recommendations to further wean off Versed and discontinue. He is hemodynamically stable. He is on a mechanical ventilator for now. Vent settings are essentially unchanged. The patient has a #8 [address] tracheostomy tube in place. She'll feeds were temporally placed on hold pending further wean off the sedation as the patient was getting quite worked up and restless. The chest x-ray from yesterday shows no acute abnormalities. Abdominal film was also nonspecific. The patient did produce a bowel movement along with use of laxatives. She is on bronchodilators. The patient is on oral prednisone taper. The patient is also on Cleviprex for blood pressure control in addition to oral clonidine. Scopolamine patch was also added for excessive respiratory secretions. On 04/10/2018, the patient is off Versed. The patient a mechanical ventilator. The patient follows some simple commands. He is profoundly weak. 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 The patient is on a combination of clonazepam Celexa and Haldol as needed. Doing well. Hemodynamically stable. She'll feeds are being tolerated. He was switched to a pressure support of 5 and a PEEP of 5 and he is able to tolerate this mode of spontaneous breathing without any major difficulties. Tracheostomy tube in place. No nausea. No vomiting. No abdominal pain. No agitation. He is lethargic however he is arousable. He remains on Cleviprex of for blood pressure control. He is also on clonidine for blood pressure control. Family is at the bedside. He was taken off the IV Solu-Medrol and started on a prednisone burst taper. Objective - Vital Signs Vital signs: Vital Signs Temp 98.5 F 04/10/18 12:00 Pulse 90 04/10/18 13:00 Resp 16 04/10/18 13:00 BP 121/80 04/10/18 12:00 Pulse Ox 98 04/10/18 13:00 Intake & Output 04/09/18 04/10/18 04/10/18 18:59 06:59 18:59 Intake Total 057.030 2076.667 544.500 Output Total 615 680 410 Balance 71.308 341.667 134.500 Weight 75 kg 76.3 kg Intake: IV 360 240 120 Levofloxacin 500Mg-D5w 100 Pmx 500 mg In Dextrose/ Water 1 100ml.bag @ 100 mls/hr IVPB Q24HR [facility] Rx# :[id number] Sodium Chloride 0.9% 1, 220 240 120 000 ml @ 20 mls/hr IV . Q24H [facility] Rx#:[id number] Sodium Chloride 0.9% 1, 40 000 ml @ 75 mls/hr IV . [id number] [facility] Rx#:[id number] Intake, IV Titration 196.308 201.667 94.500 Amount Clevidipine Butyrate 25 169.333 201.667 94.500 mg In Empty Bag 1 bag @ 1 MG/HR 2 mls/hr IV .Q24H [facility] Rx#:[id number] Midazolam HCl 200 mg In 26.975 Sodium Chloride 0.9% 60 ml @ 1 MG/HR 0.5 mls/hr IV .Q24H [facility] Rx#: [id number] Tube Feeding 70 460 240 Other 60 120 90 Output: Urine 615 680 410 Other: Voiding Method Indwelling Catheter Indwelling Catheter Indwelling Catheter ABP, PAP, CO, CI - Last Documented Arterial Blood Pressure 136/63 - Exam The patient is more constable comfortable and he currently has a Shiley tracheostomy tube #8. The patient is synchronous with the mechanical ventilator. No obvious signs of any respiratory distress at this point in time Head exam was generally normal. There was no scleral icterus or corneal arcus. Mucous membranes were moist. Neck was supple and without jugular venous distension, thyromegaly, or carotid bruits. Carotids were easily palpable bilaterally. There was no adenopathy. The patient has a left subclavian triple-lumen catheter in place. The patient has a #8 Shiley tracheostomy tube in place which is nonfenestrated uncuffed. Lungs sounds are diminished bilaterally along with some few scattered expiratory wheezes heard throughout the lung joseph and there is pronation of expiratory phase of breathing. Cardiac exam revealed the PMI to be normally situated and sized. The rhythm was regular and no extrasystoles were noted during several minutes of auscultation. The first and second heart sounds were normal and physiologic splitting of the second heart sound was noted. There were no murmurs, rubs, clicks, or gallops. Abdominal exam revealed normal bowel sounds. The abdomen was soft, non-tender, and without masses, organomegaly, or appreciable enlargement of the abdominal aorta. The PEG tube site is dry clean and intact. Examination of the extremities revealed easily palpable radial, femoral and pedal pulses. There was no cyanosis, clubbing or edema. The patient has an art line in his right upper extremity Examination of the skin revealed no evidence of significant rashes, suspicious appearing nevi or other concerning lesions. Neurologically arousable and follows simple commands. Profound muscle weakness in all 4 extremities. Reflexes are present. No facial asymmetry. Positive cough and gag. - Labs CBC & Chem 7: 04/10/18 04:10 04/10/18 04:10 Labs: Abnormal Lab Results - Last 24 Hours (Table) 04/09/18 04/09/18 04/09/18 Range/Units 16:15 20:08 23:50 RBC (4.30-5.90) m/uL Hgb (13.0-17.5) gm/dL Hct (39.0-53.0) % ABG pCO2 (35-45) mmHg ABG HCO3 (21-25) mmol/L ABG Total CO2 (19-24) mmol/L Sodium (137-145) mmol/L Carbon Dioxide (22-30) mmol/L BUN (9-20) mg/dL Creatinine (0.66-1.25) mg/dL Glucose (74-99) mg/dL POC Glucose (mg/dL) 121 H 133 H 134 H (75-99) mg/dL Calcium (8.4-10.2) mg/dL 04/10/18 04/10/18 04/10/18 Range/Units 03:45 04:10 04:10 RBC 3.55 L (4.30-5.90) m/uL Hgb 11.3 L (13.0-17.5) gm/dL Hct 34.0 L (39.0-53.0) % ABG pCO2 (35-45) mmHg ABG HCO3 (21-25) mmol/L ABG Total CO2 (19-24) mmol/L Sodium 135 L (137-145) mmol/L Carbon Dioxide 31 H (22-30) mmol/L BUN 28 H (9-20) mg/dL Creatinine 0.57 L (0.66-1.25) mg/dL Glucose 103 H (74-99) mg/dL POC Glucose (mg/dL) 123 H (75-99) mg/dL Calcium 8.1 L (8.4-10.2) mg/dL 04/10/18 04/10/18 04/10/18 Range/Units 05:10 08:15 12:14 RBC (4.30-5.90) m/uL Hgb (13.0-17.5) gm/dL Hct (39.0-53.0) % ABG pCO2 51 H (35-45) mmHg ABG HCO3 33 H (21-25) mmol/L ABG Total CO2 34 H (19-24) mmol/L Sodium (137-145) mmol/L Carbon Dioxide (22-30) mmol/L BUN (9-20) mg/dL Creatinine (0.66-1.25) mg/dL Glucose (74-99) mg/dL POC Glucose (mg/dL) 103 H 137 H (75-99) mg/dL Calcium (8.4-10.2) mg/dL Microbiology - Last 24 Hours (Table) 04/08/18 15:55 Gram Stain - Final Sputum Sputum Culture - Final Assessment and Plan Plan: Assessment 1 acute COPD exacerbation secondary to an acute influenza pulmonary infection. The patient failed initial weaning. The patient is post tracheostomy tube insertion. He completed his course of Tamiflu. The patient is tolerating pressure support wean and currently the patient is a pressure support of 5 and a PEEP of 5. He is currently off IV sedatives including Versed and Diprivan. 2 acute on top of chronic hypoxic respiratory failure, secondary to above 3 advanced COPD at baseline with FEV1 of less than 30% of predicted 4 previous hospitalization for COPD exacerbations last one being in January 2018 5 smoker 6 chronic anxiety, currently on a combination of clonazepam and Celexa 7 acute on Chronic hypercapnic respiratory failure secondary to COPD 8 obstructive sleep apnea maintained on CPAP at a pressure of 9 cm of water on outpatient basis 9 enteral feeding for nutritional support 10 hypertensive reaction, currently on clevidipine drip and clonidine 0.2 mg by mouth 3 times a day. Plan support mode of ventilation as long as the patient can tolerate. Monitor mentation. The Clonazepam Dose to Once a Day. The Chiropractor. Prednisone Burst Taper. Bronchodilators. Tube Feeds. 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 Reflexes Are Present. Physical Therapy with [facility]. We'll Continue to Follow. He'll Be Kept in ICU for Another 24 Hours Based on the Above-Mentioned Comorbidities. Family Has Been Updated on His Condition. This Is a Critically Care Evaluation Was Done More Than 30 Minutes.
[2018-04-10 16:02] LABS: Glucose,Whole Blood 145 mg/dL (75-99)
[2018-04-10 19:59] LABS: Glucose,Whole Blood 105 mg/dL (75-99)
[2018-04-10] MEDS: CITALOPRAM HYDROBROMIDE 20 MG TAB PO SCH (21:06)
[2018-04-11 00:09] LABS: Glucose,Whole Blood 136 mg/dL (75-99)
[2018-04-11 04:23] LABS: Glucose,Whole Blood 112 mg/dL (75-99)
[2018-04-11 04:41] LABS: Anion Gap 3 mmol/L; Blood Urea Nitrogen 28 mg/dL (9-20); Calcium 8.3 mg/dL (8.4-10.2); Carbon Dioxide 32 mmol/L (22-30); Chloride 99 mmol/L (98-107); Glucose 110 mg/dL (74-99); Magnesium 1.9 mg/dL (1.6-2.3); Phosphorus 3.6 mg/dL (2.5-4.5); Potassium 4.7 mmol/L (3.5-5.1); Sodium 134 mmol/L (137-145)
[2018-04-11] MEDS: INSULIN ASPART (NovoLOG) 100 UNIT/ML VIAL SQ SCH ×6 (04:43→23:46)
[2018-04-11 04:50] LABS: ABG Base Excess 9.8 mmol/L; ABG HCO3 34 mmol/L (21-25); ABG Oxygen Saturation 95.6 % (94-97); ABG PCO2 54 mmHg (35-45); ABG PH 7.41 (7.35-7.45); ABG PO2 74 mmHg (83-108); ABG TCO2 36 mmol/L (19-24)
[2018-04-11 04:50] LABS: HCT 33.7 % (39.0-53.0); HGB 11.2 gm/dL (13.0-17.5); MCH 31.6 pg (25.0-35.0); MCHC 33.1 g/dL (31.0-37.0); MCV 95.3 fL (80.0-100.0); Mean Platelet Volume 7.5; Platelet Count 210 k/uL (150-450); RBC 3.54 m/uL (4.30-5.90); RDW 13.9 % (11.5-15.5); WBC 7.5 k/uL (3.8-10.6)
[2018-04-11] MEDS: HYDROmorphone 1 MG/ML 1 ML SYRINGE IVP PRN ×4 (04:58→19:37)
[2018-04-11] MEDS ORDERED: Magnesium Replacement Protocol 1 EACH MISC MISCELLANE PRN (05:07)
[2018-04-11] MEDS: MAGNESIUM SULFATE-D5W PMX 1 GM in DEXTROSE/WATER 1 100ML.BAG IVPB SCH ×2 (05:32→06:46)
[2018-04-11] MEDS: IPRATROPIUM-ALBUTEROL 3 ML NEB INHALATION SCH ×4 (07:10→19:26)
[2018-04-11] MEDS: FORMOTEROL FUMARATE 20 MCG/2 ML NEBU INHALATION SCH ×2 (07:10→19:26)
[2018-04-11] MEDS: BUDESONIDE 1 MG/2 ML NEBU INHALATION SCH ×2 (07:10→19:26)
--- NOTE | 2018-04-11 08:11 | XR ---
EXAMINATION TYPE: XR chest 1V portable DATE OF EXAM: 04/11/2018 Comparison: 04/10/2018 Clinical History: 57-year-old male SOB Findings: Left subclavian CVC tip in the lower SVC. Heart normal size. Aorta within normal limits. Mild diffuse interstitial prominence and mild hyperinflation. Tracheostomy cannula is in place. No radha consolid ation or pleural effusion. Impression: Chronic changes, possible underlying COPD. No acute cardiopulmonary process.
[2018-04-11] MEDS: LACTULOSE 20 GM/30 ML CUP PO SCH (08:20)
[2018-04-11] MEDS: HEPARIN SODIUM,PORCINE 5,000 UNIT/ML 1 ML VIAL SQ SCH ×2 (08:20→16:24)
[2018-04-11] MEDS: FAMOTIDINE 20 MG/2 ML VIAL IV SCH ×2 (08:21→21:08)
[2018-04-11] MEDS: predniSONE 20 MG TAB PO SCH (08:21)
[2018-04-11] MEDS: cloNIDine HCL 0.2 MG TAB PO SCH ×3 (08:21→21:09)
[2018-04-11] MEDS: CHLORHEXIDINE GLUCONATE 15 ML CUP MUCOUS MEM SCH ×2 (08:21→21:08)
[2018-04-11] MEDS: NYSTATIN 100,000 UNIT/GM POWD 15 GM TOPICAL SCH ×2 (08:21→21:09)
[2018-04-11 08:27] LABS: Glucose,Whole Blood 104 mg/dL (75-99)
--- NOTE | 2018-04-11 12:39 | P.PN ---
Subjective Progress Note Date: 04/11/18 A 57-year-old male patient with advanced COPD with an FEV1 of less than 30% of predicted and chronic hypoxic respiratory failure with reduction dependent who also has history of obstructive sleep apnea mechanical CPAP therapy. The patient has an AHI of 23 and the patient has been maintained on CPAP therapy at a pressure of 9 cm of water on outpatient basis. In terms of COPD, the patient has been receiving Dulera, theophylline and maintenance 5 mg of prednisone a daily basis. The patient had 2 hospitalizations back in 2018 in the last hospitalization was in January 2018 for an acute on top of chronic hypoxic respiratory failure and COPD exacerbation. The patient was treated and the patient was discharged home. Over the past 24 hours, the patient became acutely ill. His had a rest or checked infection subsequently he got sick and within 24 hours he started having fever and chills and cough and congestion and shortness of breath and for that reason he was brought into the hospital. On route, the patient was placed on BiPAP. The same was done in the emergency department. He checked positive for influenza a and he was started on Tamiflu in addition to bronchodilators and steroids. He continued to be on a BiPAP and later on he failed BiPAP and he had to be intubated and placed on a mechanical ventilator. This morning, the patient is an assist-control mode of ventilation. His tidal volumes of 400 with an FiO2 of 50% with a PEEP of 5 and respiratory rate of 20. His peak air pressure is around and static air pressure of 22. There has been improvement in his acid-base status. The morning blood gas showed a pH of 7.32 with a pCO2 of 55 and pO2 of 172 and this was on FiO2 of 50%. Chest x-rays consistent with COPD and there is no evidence of any pulmonary infiltration or pneumonia. The patient had some diminished urine output and the patient is currently on IV fluids at the rate of 75 mL an hour. No leukocytosis. Renal function is stable. Currently sedated with Diprivan and, comfortable. Hemodynamically stable on no pressors. No reported chest pain. No reported swelling in lower extremities. Family is at the bedside. On today's evaluation of 04/01/2018 I'm seeing this patient for a follow-up. The patient remains sedated, comfortable mechanical ventilator. The patient is a tidal volume of 450 with an FiO2 of 40% and PEEP of 5 and the rate of 20. Peak airway pressures 31 and static pressures around 21. Chest x-ray showing hyperinflation without any acute pulmonary abnormalities or infiltrates. The patient is bronchospastic and wheezy. The patient has no auto PEEP. The patient's blood gases from today showed a pH of 7.35 with a pCO2 of 50 and pO2 of 126. The patient tolerating his tube feeds. The patient is hemodynamically stable. Remains on examination bronchodilators and steroids and antibiotics. The sputum cultures still negative. Blood cultures negative. No pressors. No other significant events overnight. Family is at the bedside. This is going to be a difficult wean knowing that the patient has advanced COPD with a baseline FEV1 of 30% of predicted. The patient also has chronic hypoxic respiratory failure. He is also known to have obstructive sleep apnea. On 04/02/2018 patient is being seen for a follow-up. Remains on a mechanical ventilator. Remains sedated. He was given a sedation holiday today which went very poorly. The patient aroused quite uncomfortable and he was fighting the respirator. He was completely synchronous. He became tachycardic and tachypneic and subsequently his oxygen saturations dropped and he was not getting his volumes. At that point, the sedation holiday was discontinued and the patient was placed back on sedation. He was given also a short spontaneous breathing trial which ended up being a failure. For now, the patient is an assist-control mode at the rate of 20 with tidal volume of 400 and FiO2 of 40% and PEEP of 5. I kept him on Diprivan. I switched him to ABC plus mode with a Itime of 0.9 seconds. His blood gases from earlier this morning showed a pH of 7.34 with a pCO2 of 53 and pO2 of 91. No significant orotracheal secretions. Peak airway pressures still at 30. No auto PEEP. The chest x-ray from today was no significant abnormalities. It correlates with COPD. All of the lines are in place. The patient is otherwise hemodynamically stable. He is receiving his tube feeds. No hemodynamic instability. He is producing adequate amount of urine output. He is afebrile. Family is at the bedside. Obviously this will be a difficult to wean knowing that his baseline FEV1 is around 30% of predicted and he has chronic hypoxic respiratory failure in addition to obstructive sleep apnea. On 04/03/2018 I'm seeing this patient for a follow-up. The patient remains on a mechanical ventilator. Attempts to switch him to Precedex yesterday failed and the patient was unable to hold his anxiety and agitation. For that reason the patient was started on clonazepam 1 mg twice a day and this morning he was gradually went off Diprivan. After dropping the Diprivan dose down to 20 mics per KG per minute, the patient started having increased anxiety, agitation, restlessness, hypertension, tachypnea, tachycardia, asynchronous with a mechanical ventilator. Based on all this, the attempt was aborted and the patient was placed back on sedation. He remains on a VC plus mode of mechanical ventilation. His rate is at 20 with tidal volume 400 and FiO2 of 40 % with a PEEP of 5. Chest x-ray shows no acute abnormalities and blood gases show a pH of 7.41 with a pCO2 50 and pO2 of 87. Rest of the blood work and electrodes are all within normal limits. He is tolerating his tube feeds. He is at goal for the time being. No edema no signs of any fluid overload. No fever or chills. No respiratory secretions. Had a lengthy discussion with the family and this will be a prolonged and slow wean and I've made recommendations for a PEG and trach probably early next week. We'll consult general surgery regarding a PEG and trach insertion. On 04/04/2018, the patient remains on a mechanical ventilator. We have made adjustments on the patient's sedation. Currently the patient on Versed drip at 8 mg/h and the patient is also on propofol which is down to 20 g per KG per minute. The patient is doing well. Very symptoms with the mechanical ventilator. Still on the same vent setting. No sedation holiday was given as the patient is quite agitated and restless and asynchronous with a mechanical ventilator and he would obviously failed sedation holiday. Note that he does not fully gaining consensual consciousness when he is off the sedation. Otherwise, he remains hemodynamically stable. He remains on a VC plus mode of mechanical ventilation. He is on a tidal volume of 400 with a rate of 20 and an FiO2 of 40% with a PEEP of 5. Chest x-ray findings are as essentially unchanged. The blood gases from today show a pH of 7.38 with a pCO2 of 61 and pO2 of 86. No fever. No chills. Tolerating his tube feeds. The general surgeon was consulted for a PEG and a tracheostomy tube insertion in a.m. On 04/05/2018 the patient remains on a mechanical ventilator. This morning he is on a 30 mg of Versed drip and propofol is running at 50 g per KG per minute. While sedated. The plan is to proceed with a PEG and trach today. He remains an assist-control mode of ventilation with a rate of 20, tidal volume of 400 and FiO2 of 40% with a PEEP of 5. No fever. No chills. The blood gases from today showed a pH of 7.45 with a pCO2 of 55 and pO2 of 86. Potassium level is at 5.7. I discussed this with anesthesiology. They wanted a repeat potassium prior to this patient going and proceeding with his PEG and trach. I gave the patient D50 and insulin and his potassium level needs to be repeated. Otherwise, his current tube feeds on hold. His chest x-ray from today is showing some mild interstitial prominence and ET tube is in a good location. The patient also had a central line which is in good location. He has background COPD. On 04/06/2018 I'm seeing this patient for a follow-up. The patient underwent a successful PEG and trach insertion. The patient has a #[address] in [address]. PEG tube is also in place. He is doing well. He is on the same vent setting. His peak airway pressures around 26. He is on VC plus mode with tidal volume of 400 with rate of 20 and FiO2 of 40% and PEEP of 5. Chest x -ray findings are essentially stable. Tracheostomy tube is in a good location. Hemodynamically stable. The patient is producing adequate amount of urine output. He is on DuoNeb neb last treatment [id number]. He is on a combination of Pulmicort and this was and Perforomist twice a day. He is on IV Solu-Medrol which was tapered down to 40 mg every 12 hours. Tube feeds will be started today. We are also going to gradually wean off his sedation and assess his underlying mentation. No other significant events otherwise. The surgical procedures went without any additional complications. On today's evaluation 04/07/2018, the patient is off Diprivan. The patient is currently on Versed which is being weaned down and is currently down to 7 mg per hour. The patient is synchronous with the mechanical ventilator. He is more active. His opening up his eyes. He was able to follow some simple commands earlier. However he gets very anxious critically and at times he becomes worked up and tachycardic and tachypneic. Blood pressure is also on the higher side. Added clonidine for blood pressure control. The patient otherwise is tolerating his tube feeds. He remains on a mechanical ventilator and the vent settings are essentially unchanged. He is on assist control mode of ventilation, VC plus, with tidal volume of 400 and FiO2 of 40% and a PEEP of 5. Chest x-ray shows no acute abnormalities. No significant respiratory secretions. The patient is tolerating tube feeds. However he has not had any bowel movement yet. We'll add lactulose. Family is at the bedside. The patient seems to be comfortable. Would like to gradually wean him off the Versed. Weaning parameters will be checked once the patient is much more awake and alert. On 04/08/2018, the patient remains off Diprivan. It has been difficult to wean the Versed as the patient gets a autonomic reaction, and he becomes restless and tachycardic and hypertensive. We were able to cut him down to 3 mg of Versed per hour. Meanwhile, we had to use Cleviprex for blood pressure control. I also started this patient on clonazepam 1 mg twice a day. He is on clonidine for blood pressure control in addition. During the day, the patient became quite restless and later on he settled and currently is at the point where his opening his eyes and on few instances he was able to follow some commands. He seems to be more comfortable today. On a assist-control mode of ventilation. He is on a tidal volume 400 with an FiO2 of 40% and a PEEP of 5. Tube feeds were placed on hold as the patient is being weaned off the sedation. Orotracheal secretions are minimal. The patient a tracheostomy tube in place. We will start on lactulose for bowel movement activity. No fever. No chills. Chest x-ray findings are stable and the patient had no pneumothorax or evolving pneumonia. No fever or chills. His neurologic exam is nonfocal. On 04/09/2018 I'm seeing this patient for a follow-up. The patient is being still weaned off the patient. We were able to get this patient off Diprivan. He was down to 3 mg an hour of Versed infusion and he was still getting worked up and restless and agitated. He did follow some simple commands yesterday and his neurologic exam was nonfocal. Based on this, I added clonazepam 1 mg twice a day, Celexa 60 mg by mouth daily and I gave him Haldol. This morning it is much more comfortable and is opening his eyes and moving his extremities to command. Based on that, I made recommendations to further wean off Versed and discontinue. He is hemodynamically stable. He is on a mechanical ventilator for now. Vent settings are essentially unchanged. The patient has a #8 [address] tracheostomy tube in place. She'll feeds were temporally placed on hold pending further wean off the sedation as the patient was getting quite worked up and restless. The chest x-ray from yesterday shows no acute abnormalities. Abdominal film was also nonspecific. The patient did produce a bowel movement along with use of laxatives. She is on bronchodilators. The patient is on oral prednisone taper. The patient is also on Cleviprex for blood pressure control in addition to oral clonidine. Scopolamine patch was also added for excessive respiratory secretions. On 04/10/2018, the patient is off Versed. The patient a mechanical ventilator. The patient follows some simple commands. He is profoundly weak. 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 The patient is on a combination of clonazepam Celexa and Haldol as needed. Doing well. Hemodynamically stable. She'll feeds are being tolerated. He was switched to a pressure support of 5 and a PEEP of 5 and he is able to tolerate this mode of spontaneous breathing without any major difficulties. Tracheostomy tube in place. No nausea. No vomiting. No abdominal pain. No agitation. He is lethargic however he is arousable. He remains on Cleviprex of for blood pressure control. He is also on clonidine for blood pressure control. Family is at the bedside. He was taken off the IV Solu-Medrol and started on a prednisone burst taper. On 04/11/2018, the patient is off sedation. Awake and alert. Able to move his arms against gravity. Much more interactive. Anxiety levels are down and is calm and comfortable. He was able to tolerate 5 hours of pressure support mode of ventilation same will be done today. Hemodynamically stable. No significant orotracheal secretions. No significant respiratory distress. No fever. No chills. The airway Pressures are down. The patient is currently off Cleviprex drip. The patient is tolerating his tube feeds. Family is at the bedside. No other significant events over the past 24 hours. Objective - Vital Signs Vital signs: Vital Signs Temp 98.5 F 04/11/18 08:00 Pulse 81 04/11/18 11:05 Resp 10 L 04/11/18 11:00 BP 121/80 04/10/18 12:00 Pulse Ox 100 04/11/18 11:00 Intake & Output 04/10/18 04/11/18 04/11/18 18:59 06:59 18:59 Intake Total 8767.680 8587.133 580 Output Total 870 605 315 Balance 329.067 712.133 265 Weight 78.6 kg Intake: IV 260 320 200 Magnesium Sulfate-D5w Pmx 100 100 1 gm In Dextrose/Water 1 100ml.bag @ 100 mls/hr IVPB Q1H [facility] Rx#: [id number] Sodium Chloride 0.9% 1, 260 220 100 000 ml @ 20 mls/hr IV . Q24H [facility] Rx#:[id number] Intake, IV Titration 129.067 67.133 Amount Clevidipine Butyrate 25 129.067 67.133 mg In Empty Bag 1 bag @ 1 MG/HR 2 mls/hr IV .Q24H [facility] Rx#:[id number] Tube Feeding 660 840 300 Other 150 90 80 Output: Urine 870 605 315 Other: Voiding Method Indwelling Catheter Indwelling Catheter Indwelling Catheter ABP, PAP, CO, CI - Last Documented Arterial Blood Pressure 141/65 - Exam The patient is more constable comfortable and he currently has a Shiley tracheostomy tube #8. The patient is synchronous with the mechanical ventilator. No obvious signs of any respiratory distress at this point in time Head exam was generally normal. There was no scleral icterus or corneal arcus. Mucous membranes were moist. Neck was supple and without jugular venous distension, thyromegaly, or carotid bruits. Carotids were easily palpable bilaterally. There was no adenopathy. The patient has a left subclavian triple-lumen catheter in place. The patient has a #8 Shiley tracheostomy tube in place which is nonfenestrated uncuffed. Lungs sounds are diminished bilaterally along with some few scattered expiratory wheezes heard throughout the lung joseph and there is pronation of expiratory phase of breathing. Cardiac exam revealed the PMI to be normally situated and sized. The rhythm was regular and no extrasystoles were noted during several minutes of auscultation. The first and second heart sounds were normal and physiologic splitting of the second heart sound was noted. There were no murmurs, rubs, clicks, or gallops. Abdominal exam revealed normal bowel sounds. The abdomen was soft, non-tender, and without masses, organomegaly, or appreciable enlargement of the abdominal aorta. The PEG tube site is dry clean and intact. Examination of the extremities revealed easily palpable radial, femoral and pedal pulses. There was no cyanosis, clubbing or edema. The patient has an art line in his right upper extremity Examination of the skin revealed no evidence of significant rashes, suspicious appearing nevi or other concerning lesions. Neurologically arousable and follows simple commands. Profound muscle weakness in all 4 extremities. Reflexes are present. No facial asymmetry. Positive cough and gag. - Labs CBC & Chem 7: 04/11/18 04:15 04/11/18 04:15 Labs: Abnormal Lab Results - Last 24 Hours (Table) 04/10/18 04/10/18 04/10/18 Range/Units 16:00 19:46 23:43 RBC (4.30-5.90) m/uL Hgb (13.0-17.5) gm/dL Hct (39.0-53.0) % ABG pCO2 (35-45) mmHg ABG pO2 (83-108) mmHg ABG HCO3 (21-25) mmol/L ABG Total CO2 (19-24) mmol/L Sodium (137-145) mmol/L Carbon Dioxide (22-30) mmol/L BUN (9-20) mg/dL Creatinine (0.66-1.25) mg/dL Glucose (74-99) mg/dL POC Glucose (mg/dL) 145 H 105 H 136 H (75-99) mg/dL Calcium (8.4-10.2) mg/dL 04/11/18 04/11/18 04/11/18 Range/Units 04:15 04:15 04:20 RBC 3.54 L (4.30-5.90) m/uL Hgb 11.2 L (13.0-17.5) gm/dL Hct 33.7 L (39.0-53.0) % ABG pCO2 (35-45) mmHg ABG pO2 (83-108) mmHg ABG HCO3 (21-25) mmol/L ABG Total CO2 (19-24) mmol/L Sodium 134 L (137-145) mmol/L Carbon Dioxide 32 H (22-30) mmol/L BUN 28 H (9-20) mg/dL Creatinine 0.42 L (0.66-1.25) mg/dL Glucose 110 H (74-99) mg/dL POC Glucose (mg/dL) 112 H (75-99) mg/dL Calcium 8.3 L (8.4-10.2) mg/dL 04/11/18 04/11/18 Range/Units 04:45 08:24 RBC (4.30-5.90) m/uL Hgb (13.0-17.5) gm/dL Hct (39.0-53.0) % ABG pCO2 54 H (35-45) mmHg ABG pO2 74 L (83-108) mmHg ABG HCO3 34 H (21-25) mmol/L ABG Total CO2 36 H (19-24) mmol/L Sodium (137-145) mmol/L Carbon Dioxide (22-30) mmol/L BUN (9-20) mg/dL Creatinine (0.66-1.25) mg/dL Glucose (74-99) mg/dL POC Glucose (mg/dL) 104 H (75-99) mg/dL Calcium (8.4-10.2) mg/dL Microbiology - Last 24 Hours (Table) 04/08/18 15:55 Gram Stain - Final Sputum Sputum Culture - Final Assessment and Plan Plan: Assessment 1 acute COPD exacerbation secondary to an acute influenza pulmonary infection. The patient had an acute influenza infection with secondary exacerbation. The patient is currently posterior chest tube insertion. He was weaned off the sedation. He is doing well on a mechanical ventilator and he was able to tolerate pressure support mode of wean for yesterday without any issues. The main issue for now remains his profound muscle weakness and the patient would need aggressive physical therapy. 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 2 acute on top of chronic hypoxic respiratory failure, secondary to above 3 advanced COPD at baseline with FEV1 of less than 30% of predicted 4 previous hospitalization for COPD exacerbations last one being in January 2018 5 smoker 6 chronic anxiety, currently on a combination of clonazepam and Celexa 7 acute on Chronic hypercapnic respiratory failure secondary to COPD 8 obstructive sleep apnea maintained on CPAP at a pressure of 9 cm of water on outpatient basis 9 enteral feeding for nutritional support 10 hypertensive reaction, improved Plan Patient is doing extremely well. Will need aggressive physical therapy. Daily pressure support mode of wean. Continue enteral feeding for nutritional support. Continue bronchodilators. Gradual prednisone burst taper. 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 He will need aggressive physical therapy. Gradual weaning process. Continue enteral feeding for nutritional support. We'll continue to follow.
[2018-04-11] MEDS: SODIUM CHLORIDE 0.9% 1,000 ML IV SCH (12:40)
[2018-04-11 12:58] LABS: Glucose,Whole Blood 121 mg/dL (75-99)
--- NOTE | 2018-04-11 13:19 | P.PN ---
Subjective 57-year-old male with a history of COPD who was admitted with COPD exacerbation secondary to influenza A. Given to respiratory failure and eventually had to be intubated. He is extubated now and he is on trach. 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 Today the patient was alert and oriented. He says that he is doing good. He has no acute issues right now. His shortness of breath is better is not coughing any complains of no chest pain, no racing heart, he is tolerating tube feedings good. He does not complain any abdominal pain Objective - Vital Signs Vital signs: Vital Signs Temp 98.8 F 04/11/18 12:00 Pulse 79 04/11/18 13:00 Resp 8 L 04/11/18 13:00 BP 121/80 04/10/18 12:00 Pulse Ox 98 04/11/18 13:00 Intake & Output 04/10/18 04/11/18 04/11/18 18:59 06:59 18:59 Intake Total 7613.561 2839.133 770 Output Total 870 605 495 Balance 329.067 712.133 275 Weight 78.6 kg Intake: IV 260 320 240 Magnesium Sulfate-D5w Pmx 100 100 1 gm In Dextrose/Water 1 100ml.bag @ 100 mls/hr IVPB Q1H [facility] Rx#: [id number] Sodium Chloride 0.9% 1, 260 220 140 000 ml @ 20 mls/hr IV . Q24H [facility] Rx#:[id number] Intake, IV Titration 129.067 67.133 Amount Clevidipine Butyrate 25 129.067 67.133 mg In Empty Bag 1 bag @ 1 MG/HR 2 mls/hr IV .Q24H [facility] Rx#:[id number] Tube Feeding 660 840 420 Other 150 90 110 Output: Urine 870 605 495 Other: Voiding Method Indwelling Catheter Indwelling Catheter Indwelling Catheter ABP, PAP, CO, CI - Last Documented Arterial Blood Pressure 137/62 - Exam On exam, alert and oriented x3. HEENT: Conjunctivae normal. eyes normal. NECK: No JVD. No thyroid enlargement. No LNs CARDIOVASCULAR: S1, S2 muffled. No murmur RESPIRATION: Patient is on trach ABDOMEN: Soft, nontender . No guarding. no masses palpable. No ascites, No hepatosplenomegaly.Bowel sounds heard. LEGS: No edema. no swelling NERVOUS SYSTEM: Cranial N 2-12 grossly normal. Moves all 4 limbs. No focal deficits. No sensory deficit. No signs of cerebellar dysfucntion. Skin: no ulcer no rash - Labs CBC & Chem 7: 04/11/18 04:15 04/11/18 04:15 Labs: Abnormal Lab Results - Last 24 Hours (Table) 04/10/18 04/10/18 04/10/18 Range/Units 16:00 19:46 23:43 RBC (4.30-5.90) m/uL Hgb (13.0-17.5) gm/dL Hct (39.0-53.0) % ABG pCO2 (35-45) mmHg ABG pO2 (83-108) mmHg ABG HCO3 (21-25) mmol/L ABG Total CO2 (19-24) mmol/L Sodium (137-145) mmol/L Carbon Dioxide (22-30) mmol/L BUN (9-20) mg/dL Creatinine (0.66-1.25) mg/dL Glucose (74-99) mg/dL POC Glucose (mg/dL) 145 H 105 H 136 H (75-99) mg/dL Calcium (8.4-10.2) mg/dL 04/11/18 04/11/18 04/11/18 Range/Units 04:15 04:15 04:20 RBC 3.54 L (4.30-5.90) m/uL Hgb 11.2 L (13.0-17.5) gm/dL Hct 33.7 L (39.0-53.0) % ABG pCO2 (35-45) mmHg ABG pO2 (83-108) mmHg ABG HCO3 (21-25) mmol/L ABG Total CO2 (19-24) mmol/L Sodium 134 L (137-145) mmol/L Carbon Dioxide 32 H (22-30) mmol/L BUN 28 H (9-20) mg/dL Creatinine 0.42 L (0.66-1.25) mg/dL Glucose 110 H (74-99) mg/dL POC Glucose (mg/dL) 112 H (75-99) mg/dL Calcium 8.3 L (8.4-10.2) mg/dL 04/11/18 04/11/18 04/11/18 Range/Units 04:45 08:24 12:08 RBC (4.30-5.90) m/uL Hgb (13.0-17.5) gm/dL Hct (39.0-53.0) % ABG pCO2 54 H (35-45) mmHg ABG pO2 74 L (83-108) mmHg ABG HCO3 34 H (21-25) mmol/L ABG Total CO2 36 H (19-24) mmol/L Sodium (137-145) mmol/L Carbon Dioxide (22-30) mmol/L BUN (9-20) mg/dL Creatinine (0.66-1.25) mg/dL Glucose (74-99) mg/dL POC Glucose (mg/dL) 104 H 121 H (75-99) mg/dL Calcium (8.4-10.2) mg/dL Microbiology - Last 24 Hours (Table) 04/08/18 15:55 Gram Stain - Final Sputum Sputum Culture - Final Assessment and Plan Assessment: - Acute respiratory failure status post intubation Patient now on trach - COPD exacerbation - Influenza A - History of obstructive sleep apnea - History of tobacco abuse Plan - Patient apparently is progressing a positive direction - Continue to wean. He is tolerating CPAP now - The plan is for him to go to rehab versus [facility] - Continue rest of the care - We will follow the patient Time with Patient: Greater than 30
[2018-04-11 17:10] LABS: Glucose,Whole Blood 136 mg/dL (75-99)
[2018-04-11 21:03] LABS: Glucose,Whole Blood 117 mg/dL (75-99)
[2018-04-11] MEDS: clonazePAM 1 MG TAB PO SCH (21:08)
[2018-04-11] MEDS: CITALOPRAM HYDROBROMIDE 20 MG TAB PO SCH (21:08)
[2018-04-11] MEDS: SCOPOLAMINE 1.5MG/72HR PATCH TRANSDERM SCH (21:09)
[2018-04-11] MEDS: IPRATROPIUM-ALBUTEROL 3 ML NEB INHALATION PRN (23:09)
[2018-04-11 23:39] LABS: Glucose,Whole Blood 125 mg/dL (75-99)
[2018-04-12] MEDS: HEPARIN SODIUM,PORCINE 5,000 UNIT/ML 1 ML VIAL SQ SCH ×3 (00:37→17:06)
[2018-04-12] MEDS: HALOPERIDOL LACTATE 5 MG/ML 1 ML VIAL IVP PRN (02:03)
[2018-04-12] MEDS: HYDROmorphone 1 MG/ML 1 ML SYRINGE IVP PRN ×6 (02:38→20:49)
[2018-04-12] MEDS: IPRATROPIUM-ALBUTEROL 3 ML NEB INHALATION PRN ×2 (03:17→23:06)
[2018-04-12 04:31] LABS: Glucose,Whole Blood 125 mg/dL (75-99)
[2018-04-12 04:39] LABS: HCT 34.7 % (39.0-53.0); HGB 11.6 gm/dL (13.0-17.5); MCH 31.9 pg (25.0-35.0); MCHC 33.3 g/dL (31.0-37.0); MCV 95.8 fL (80.0-100.0); Mean Platelet Volume 6.7; Platelet Count 233 k/uL (150-450); RBC 3.62 m/uL (4.30-5.90); RDW 13.9 % (11.5-15.5); WBC 8.9 k/uL (3.8-10.6)
[2018-04-12 04:49] LABS: Anion Gap 3 mmol/L; Blood Urea Nitrogen 23 mg/dL (9-20); Calcium 8.8 mg/dL (8.4-10.2); Carbon Dioxide 34 mmol/L (22-30); Chloride 96 mmol/L (98-107); Glucose 128 mg/dL (74-99); Magnesium 1.7 mg/dL (1.6-2.3); Phosphorus 3.9 mg/dL (2.5-4.5); Potassium 4.7 mmol/L (3.5-5.1); Sodium 133 mmol/L (137-145)
[2018-04-12 05:28] LABS: ABG Base Excess 10.8 mmol/L; ABG HCO3 36 mmol/L (21-25); ABG Oxygen Saturation 97.8 % (94-97); ABG PCO2 57 mmHg (35-45); ABG PO2 100 mmHg (83-108); ABG TCO2 37 mmol/L (19-24)
[2018-04-12] MEDS: INSULIN ASPART (NovoLOG) 100 UNIT/ML VIAL SQ SCH ×5 (05:43→20:39)
[2018-04-12] MEDS: MAGNESIUM SULFATE-D5W PMX 1 GM in DEXTROSE/WATER 1 100ML.BAG IVPB SCH ×2 (06:28→08:03)
[2018-04-12 08:11] LABS: Glucose,Whole Blood 127 mg/dL (75-99)
[2018-04-12] MEDS: predniSONE 20 MG TAB PO SCH (08:14)
[2018-04-12] MEDS: CHLORHEXIDINE GLUCONATE 15 ML CUP MUCOUS MEM SCH ×2 (08:15→20:50)
[2018-04-12] MEDS: FAMOTIDINE 20 MG/2 ML VIAL IV SCH ×2 (08:15→20:48)
[2018-04-12] MEDS: cloNIDine HCL 0.2 MG TAB PO SCH ×3 (08:15→20:49)
[2018-04-12] MEDS: LACTULOSE 20 GM/30 ML CUP PO SCH (08:15)
[2018-04-12] MEDS: NYSTATIN 100,000 UNIT/GM POWD 15 GM TOPICAL SCH ×2 (08:16→20:50)
[2018-04-12] MEDS: BUDESONIDE 1 MG/2 ML NEBU INHALATION SCH ×2 (08:16→19:11)
[2018-04-12] MEDS: IPRATROPIUM-ALBUTEROL 3 ML NEB INHALATION SCH ×4 (08:16→19:11)
[2018-04-12] MEDS: FORMOTEROL FUMARATE 20 MCG/2 ML NEBU INHALATION SCH ×2 (08:16→19:11)
--- NOTE | 2018-04-12 08:18 | XR ---
EXAMINATION TYPE: XR chest 1V portable DATE OF EXAM: 04/12/2018 COMPARISON: 04/11/2018 HISTORY: Abnormal x-ray TECHNIQUE: Single frontal view of the chest is obtained. FINDINGS: Tracheostomy tube and left-sided central line stable. No definite consolidation or pneumot horax. No pleural effusion. Heart size stable. Arthropathy shoulders. IMPRESSION: No acute process.
[2018-04-12] MEDS ORDERED: BISACODYL 10 MG SUPP RECTAL STA (10:15)
[2018-04-12] MEDS: METOCLOPRAMIDE 5 MG/ML 2 ML VIAL IVP SCH ×3 (10:32→17:06)
[2018-04-12] MEDS: amLODIPine 10 MG TAB PO SCH (10:33)
--- NOTE | 2018-04-12 10:34 | P.PN ---
Subjective 57-year-old male with a history of COPD who was admitted with COPD exacerbation secondary to influenza A. Given to respiratory failure and eventually had to be intubated. He is extubated now and he is on trach. 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 Today the patient was alert and oriented. He says that he is doing good. He has no acute issues right now. His shortness of breath is better is not coughing any complains of no chest pain, no racing heart, he is tolerating tube feedings good. He does not complain any abdominal pain 04/12/18 Says having pain in the belly, no BM, Bowel sounds feeble. SOB better , no cough, no chest pain, no racing heart. Objective - Vital Signs Vital signs: Vital Signs Temp 98.0 F 04/12/18 04:00 Pulse 83 04/12/18 09:00 Resp 19 04/12/18 09:00 BP 140/92 04/12/18 09:00 Pulse Ox 91 L 04/12/18 09:00 Intake & Output 04/11/18 04/12/18 04/12/18 18:59 06:59 18:59 Intake Total 1230 1230 280 Output Total 1115 1045 420 Balance 115 185 -140 Weight 74.3 kg Intake: IV 340 240 60 Magnesium Sulfate-D5w Pmx 100 1 gm In Dextrose/Water 1 100ml.bag @ 100 mls/hr IVPB Q1H [facility] Rx#: [id number] Sodium Chloride 0.9% 1, 240 240 60 000 ml @ 20 mls/hr IV . Q24H [facility] Rx#:[id number] Intake, IV Titration 100 Amount Magnesium Sulfate-D5w Pmx 100 1 gm In Dextrose/Water 1 100ml.bag @ 100 mls/hr IVPB Q1H [facility] Rx#: [id number] Tube Feeding 720 900 120 Other 170 90 Output: Gastric Drainage 200 Urine 1115 1045 220 Other: Voiding Method Indwelling Catheter Indwelling Catheter Indwelling Catheter ABP, PAP, CO, CI - Last Documented Arterial Blood Pressure 179/79 - Exam On exam, alert and oriented x3. HEENT: Conjunctivae normal. eyes normal. NECK: No JVD. No thyroid enlargement. No LNs CARDIOVASCULAR: S1, S2 muffled. No murmur RESPIRATION: Patient is on trach ABDOMEN: Soft, tender . No guarding. no masses palpable. No ascites, No hepatosplenomegaly.Bowel sounds feeble. LEGS: No edema. no swelling NERVOUS SYSTEM: Cranial N 2-12 grossly normal. Moves all 4 limbs. No focal deficits. No sensory deficit. No signs of cerebellar dysfucntion. Skin: no ulcer no rash - Labs CBC & Chem 7: 04/12/18 04:25 04/12/18 04:25 Labs: Abnormal Lab Results - Last 24 Hours (Table) 04/11/18 04/11/18 04/11/18 Range/Units 12:08 16:19 21:00 RBC (4.30-5.90) m/uL Hgb (13.0-17.5) gm/dL Hct (39.0-53.0) % ABG pCO2 (35-45) mmHg ABG HCO3 (21-25) mmol/L ABG Total CO2 (19-24) mmol/L ABG O2 Saturation (94-97) % Sodium (137-145) mmol/L Chloride (98-107) mmol/L Carbon Dioxide (22-30) mmol/L BUN (9-20) mg/dL Creatinine (0.66-1.25) mg/dL Glucose (74-99) mg/dL POC Glucose (mg/dL) 121 H 136 H 117 H (75-99) mg/dL 04/11/18 04/12/18 04/12/18 Range/Units 23:37 04:25 04:25 RBC 3.62 L (4.30-5.90) m/uL Hgb 11.6 L (13.0-17.5) gm/dL Hct 34.7 L (39.0-53.0) % ABG pCO2 (35-45) mmHg ABG HCO3 (21-25) mmol/L ABG Total CO2 (19-24) mmol/L ABG O2 Saturation (94-97) % Sodium 133 L (137-145) mmol/L Chloride 96 L (98-107) mmol/L Carbon Dioxide 34 H (22-30) mmol/L BUN 23 H (9-20) mg/dL Creatinine 0.42 L (0.66-1.25) mg/dL Glucose 128 H (74-99) mg/dL POC Glucose (mg/dL) 125 H (75-99) mg/dL 04/12/18 04/12/18 04/12/18 Range/Units 04:28 05:26 08:08 RBC (4.30-5.90) m/uL Hgb (13.0-17.5) gm/dL Hct (39.0-53.0) % ABG pCO2 57 H (35-45) mmHg ABG HCO3 36 H (21-25) mmol/L ABG Total CO2 37 H (19-24) mmol/L ABG O2 Saturation 97.8 H (94-97) % Sodium (137-145) mmol/L Chloride (98-107) mmol/L Carbon Dioxide (22-30) mmol/L BUN (9-20) mg/dL Creatinine (0.66-1.25) mg/dL Glucose (74-99) mg/dL POC Glucose (mg/dL) 125 H 127 H (75-99) mg/dL Assessment and Plan Assessment: - Acute respiratory failure status post intubation Patient now on trach - Constipation - COPD exacerbation - Influenza A - History of obstructive sleep apnea - History of tobacco abuse Plan - Patient apparently is progressing a positive direction - Xray abd ordered to r/o constipation vs SBO - Continue to wean. He is tolerating CPAP now - The plan is for him to go to rehab versus [facility] - Continue rest of the care - We will follow the patient Time with Patient: Less than 30
[2018-04-12 10:56] VITALS: BMI 25.6
--- NOTE | 2018-04-12 11:35 | P.PN ---
Subjective Progress Note Date: 04/12/18 Principal diagnosis: Acute hypoxic and hypercapnic respiratory failure secondary to COPD exacerbation , and failure to wean from mechanical ventilation. Status post tracheostomy. A 57-year-old male patient with advanced COPD with an FEV1 of less than 30% of predicted and chronic hypoxic respiratory failure with reduction dependent who also has history of obstructive sleep apnea mechanical CPAP therapy. The patient has an AHI of 23 and the patient has been maintained on CPAP therapy at a pressure of 9 cm of water on outpatient basis. In terms of COPD, the patient has been receiving Dulera, theophylline and maintenance 5 mg of prednisone a daily basis. The patient had 2 hospitalizations back in 2018 in the last hospitalization was in January 2018 for an acute on top of chronic hypoxic respiratory failure and COPD exacerbation. The patient was treated and the patient was discharged home. Over the past 24 hours, the patient became acutely ill. His had a rest or checked infection subsequently he got sick and within 24 hours he started having fever and chills and cough and congestion and shortness of breath and for that reason he was brought into the hospital. On route, the patient was placed on BiPAP. The same was done in the emergency department. He checked positive for influenza a and he was started on Tamiflu in addition to bronchodilators and steroids. He continued to be on a BiPAP and later on he failed BiPAP and he had to be intubated and placed on a mechanical ventilator. This morning, the patient is an assist-control mode of ventilation. His tidal volumes of 400 with an FiO2 of 50% with a PEEP of 5 and respiratory rate of 20. His peak air pressure is around and static air pressure of 22. There has been improvement in his acid-base status. The morning blood gas showed a pH of 7.32 with a pCO2 of 55 and pO2 of 172 and this was on FiO2 of 50%. Chest x-rays consistent with COPD and there is no evidence of any pulmonary infiltration or pneumonia. The patient had some diminished urine output and the patient is currently on IV fluids at the rate of 75 mL an hour. No leukocytosis. Renal function is stable. Currently sedated with Diprivan and, comfortable. Hemodynamically stable on no pressors. No reported chest pain. No reported swelling in lower extremities. Family is at the bedside. Reevaluated today on 04/12/2018, patient is off sedation, on mechanical ventilation, assist control mode of mechanical ventilation. Went ahead and tried the patient on pressure support of 10 and CPAP, and that seemed to be fairly well-tolerated, however the patient a blood pressure was noted to be elevated, and I recommended starting the patient on amlodipine via PEG tube.. Patient seems to have significant abdominal distention, and I recommended to continue lactulose, Dulcolax suppository, was ordered, and I have also recommended Reglan. [facility], and he was apparently accepted to their facility, I will likely proceed with transfer plans today. I did recommend placing the tube on suction because of his abdominal distention, and apparently the patient hasn't had a bowel movement in quite some time. May even consider a flat plate of the abdomen. I'm hoping with lactulose and Reglan, this will improve his GI peristalsis. Labs and ABG were reviewed. Ventilator settings were reviewed. Objective - Vital Signs Vital signs: Vital Signs Temp 98.0 F 04/12/18 04:00 Pulse 96 04/12/18 11:17 Resp 30 H 04/12/18 11:00 BP 150/93 04/12/18 11:00 Pulse Ox 94 L 04/12/18 11:00 Intake & Output 04/11/18 04/12/18 04/12/18 18:59 06:59 18:59 Intake Total 1230 1230 380 Output Total 1115 1045 520 Balance 115 185 -140 Weight 74.3 kg 74.3 kg Intake: IV 340 240 100 Magnesium Sulfate-D5w Pmx 100 1 gm In Dextrose/Water 1 100ml.bag @ 100 mls/hr IVPB Q1H [facility] Rx#: [id number] Sodium Chloride 0.9% 1, 240 240 100 000 ml @ 20 mls/hr IV . Q24H [facility] Rx#:[id number] Intake, IV Titration 100 Amount Magnesium Sulfate-D5w Pmx 100 1 gm In Dextrose/Water 1 100ml.bag @ 100 mls/hr IVPB Q1H [facility] Rx#: [id number] Tube Feeding 720 900 120 Other 170 90 60 Output: Gastric Drainage 200 Urine 1115 1045 320 Other: Voiding Method Indwelling Catheter Indwelling Catheter Indwelling Catheter ABP, PAP, CO, CI - Last Documented Arterial Blood Pressure 202/96 - Exam Physical Exam: Revealed a 57-year-old white male, on mechanical ventilation, generally weak, followed simple instructions. Arousable. Head: Atraumatic, normocephalic. Tracheostomy tube #8 was noted. HEENT:[Neck is supple.] [No neck masses.] [No thyromegaly.] [No JVD.] Chest: [Extremely diminished breath sound bilaterally, no rhonchi and no wheezes. Cardiac Exam: [Normal S1 and S2, no S3 gallop, no murmur.] Abdomen: [Slightly distended, but nontender, diminished bowel sounds. Extremities: [No clubbing, no edema, no cyanosis.] Good pulses bilaterally. Neurological Exam: [No focal neurologic deficit.] Except the patient is noted to be generally weak, profound weakness was noted in his oral 4 extremities. Skin: No rashes. Lymphatics: No lymphadenopathy. - Labs CBC & Chem 7: 04/12/18 04:25 04/12/18 04:25 Labs: Abnormal Lab Results - Last 24 Hours (Table) 04/11/18 04/11/18 04/11/18 Range/Units 12:08 16:19 21:00 RBC (4.30-5.90) m/uL Hgb (13.0-17.5) gm/dL Hct (39.0-53.0) % ABG pCO2 (35-45) mmHg ABG HCO3 (21-25) mmol/L ABG Total CO2 (19-24) mmol/L ABG O2 Saturation (94-97) % Sodium (137-145) mmol/L Chloride (98-107) mmol/L Carbon Dioxide (22-30) mmol/L BUN (9-20) mg/dL Creatinine (0.66-1.25) mg/dL Glucose (74-99) mg/dL POC Glucose (mg/dL) 121 H 136 H 117 H (75-99) mg/dL 04/11/18 04/12/18 04/12/18 Range/Units 23:37 04:25 04:25 RBC 3.62 L (4.30-5.90) m/uL Hgb 11.6 L (13.0-17.5) gm/dL Hct 34.7 L (39.0-53.0) % ABG pCO2 (35-45) mmHg ABG HCO3 (21-25) mmol/L ABG Total CO2 (19-24) mmol/L ABG O2 Saturation (94-97) % Sodium 133 L (137-145) mmol/L Chloride 96 L (98-107) mmol/L Carbon Dioxide 34 H (22-30) mmol/L BUN 23 H (9-20) mg/dL Creatinine 0.42 L (0.66-1.25) mg/dL Glucose 128 H (74-99) mg/dL POC Glucose (mg/dL) 125 H (75-99) mg/dL 04/12/18 04/12/18 04/12/18 Range/Units 04:28 05:26 08:08 RBC (4.30-5.90) m/uL Hgb (13.0-17.5) gm/dL Hct (39.0-53.0) % ABG pCO2 57 H (35-45) mmHg ABG HCO3 36 H (21-25) mmol/L ABG Total CO2 37 H (19-24) mmol/L ABG O2 Saturation 97.8 H (94-97) % Sodium (137-145) mmol/L Chloride (98-107) mmol/L Carbon Dioxide (22-30) mmol/L BUN (9-20) mg/dL Creatinine (0.66-1.25) mg/dL Glucose (74-99) mg/dL POC Glucose (mg/dL) 125 H 127 H (75-99) mg/dL Assessment and Plan Assessment: Impression: 1 acute on chronic hypoxic and hypercapnic respiratory failure requiring intubation and mechanical ventilation. 2 acute COPD exacerbation triggered by influenza pulmonary infection. 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 5 severe advanced COPD FEV1 less than 30%. 6 chronic anxiety/generalized anxiety disorder. 7 obstructive sleep apnea syndrome maintained on CPAP at home at 9 cm of water pressure. 8 suspect ileus, patient will have decompression with the PEG tube, will recommend lactulose to continue, and continue Reglan. May consider evaluation by surgery 9 benign essential hypertension. Recommendation: Continue present supportive care measures, continue daily weaning trials, I did recommend a trial of pressure support and CPAP today. His pressure support will be 10, and CPAP will be 5. Patient will have lactulose, Reglan, and Dulcolax suppository was ordered. Patient will definitely be extremely difficult to wean, and at one point he may be switched to a trach collar. But not anytime soon. [facility], and if accepted, I will go ahead and proceed with the [facility] plans [facility]. In the meantime continue bronchodilators, , continue GI and DVT prophylaxis, continue oral prednisone, continue to monitor blood pressure and address accordingly. Prognosis remains poor and guarded considering his underlying COPD, we'll continue to follow. Again if [facility] we will arrange for the transfer today. Critical care time is 40 minutes. Time with Patient: Greater than 30
--- NOTE | 2018-04-12 11:48 | XR ---
2 view abdomen HISTORY: Pain and distention 2 views of the abdomen submitted. Comparison 04/08/2018 There is motion on the exam. Lung bases are clear. There is overlying artifact present. There are gas -filled loops of small and large bowel present. Bone mineralization is stable. No peritoneum. IMPRESSION: Findings could represent ileus, follow-up as indicated.
[2018-04-12 12:02] LABS: Glucose,Whole Blood 107 mg/dL (75-99)
[2018-04-12 13:05] LABS: Glucose,Whole Blood 125 mg/dL (75-99)
[2018-04-12] MEDS: hydrALAZINE HCL 20 MG/ML 1 ML VIAL IV PRN (13:44)
--- NOTE | 2018-04-12 14:53 | P.PN ---
Subjective Progress Note Date: 04/12/18 Principal diagnosis: Respiratory failure Patient was having some distention earlier today. Nursing staff held his tube feeds. They suppository was provided in addition to the lactulose he had been receiving. Following that the patient did have a moderate-sized stool with flatus as well. Denies abdominal pain currently. Objective - Vital Signs Vital signs: Vital Signs Temp 98.0 F 04/12/18 04:00 Pulse 82 04/12/18 11:42 Resp 30 H 04/12/18 11:00 BP 150/93 04/12/18 11:00 Pulse Ox 94 L 04/12/18 11:00 Intake & Output 04/11/18 04/12/18 04/12/18 18:59 06:59 18:59 Intake Total 1230 1230 380 Output Total 1115 1045 520 Balance 115 185 -140 Weight 74.3 kg 74.3 kg Intake: IV 340 240 100 Magnesium Sulfate-D5w Pmx 100 1 gm In Dextrose/Water 1 100ml.bag @ 100 mls/hr IVPB Q1H [facility] Rx#: [id number] Sodium Chloride 0.9% 1, 240 240 100 000 ml @ 20 mls/hr IV . Q24H [facility] Rx#:[id number] Intake, IV Titration 100 Amount Magnesium Sulfate-D5w Pmx 100 1 gm In Dextrose/Water 1 100ml.bag @ 100 mls/hr IVPB Q1H [facility] Rx#: [id number] Tube Feeding 720 900 120 Other 170 90 60 Output: Gastric Drainage 200 Urine 1115 1045 320 Other: Voiding Method Indwelling Catheter Indwelling Catheter Indwelling Catheter ABP, PAP, CO, CI - Last Documented Arterial Blood Pressure 202/96 - Exam Abdomen: Soft, mild distention, nontender, PEG tube intact - Labs CBC & Chem 7: 04/12/18 04:25 04/12/18 04:25 Labs: Abnormal Lab Results - Last 24 Hours (Table) 04/11/18 04/11/18 04/11/18 Range/Units 16:19 21:00 23:37 RBC (4.30-5.90) m/uL Hgb (13.0-17.5) gm/dL Hct (39.0-53.0) % ABG pCO2 (35-45) mmHg ABG HCO3 (21-25) mmol/L ABG Total CO2 (19-24) mmol/L ABG O2 Saturation (94-97) % Sodium (137-145) mmol/L Chloride (98-107) mmol/L Carbon Dioxide (22-30) mmol/L BUN (9-20) mg/dL Creatinine (0.66-1.25) mg/dL Glucose (74-99) mg/dL POC Glucose (mg/dL) 136 H 117 H 125 H (75-99) mg/dL 04/12/18 04/12/18 04/12/18 Range/Units 04:25 04:25 04:28 RBC 3.62 L (4.30-5.90) m/uL Hgb 11.6 L (13.0-17.5) gm/dL Hct 34.7 L (39.0-53.0) % ABG pCO2 (35-45) mmHg ABG HCO3 (21-25) mmol/L ABG Total CO2 (19-24) mmol/L ABG O2 Saturation (94-97) % Sodium 133 L (137-145) mmol/L Chloride 96 L (98-107) mmol/L Carbon Dioxide 34 H (22-30) mmol/L BUN 23 H (9-20) mg/dL Creatinine 0.42 L (0.66-1.25) mg/dL Glucose 128 H (74-99) mg/dL POC Glucose (mg/dL) 125 H (75-99) mg/dL 04/12/18 04/12/18 04/12/18 Range/Units 05:26 08:08 12:00 RBC (4.30-5.90) m/uL Hgb (13.0-17.5) gm/dL Hct (39.0-53.0) % ABG pCO2 57 H (35-45) mmHg ABG HCO3 36 H (21-25) mmol/L ABG Total CO2 37 H (19-24) mmol/L ABG O2 Saturation 97.8 H (94-97) % Sodium (137-145) mmol/L Chloride (98-107) mmol/L Carbon Dioxide (22-30) mmol/L BUN (9-20) mg/dL Creatinine (0.66-1.25) mg/dL Glucose (74-99) mg/dL POC Glucose (mg/dL) 127 H 107 H (75-99) mg/dL 04/12/18 Range/Units 12:51 RBC (4.30-5.90) m/uL Hgb (13.0-17.5) gm/dL Hct (39.0-53.0) % ABG pCO2 (35-45) mmHg ABG HCO3 (21-25) mmol/L ABG Total CO2 (19-24) mmol/L ABG O2 Saturation (94-97) % Sodium (137-145) mmol/L Chloride (98-107) mmol/L Carbon Dioxide (22-30) mmol/L BUN (9-20) mg/dL Creatinine (0.66-1.25) mg/dL Glucose (74-99) mg/dL POC Glucose (mg/dL) 125 H (75-99) mg/dL Assessment and Plan (1) Acute respiratory failure Narrative/Plan: Continue daily Dulcolax suppositories. Resume tube feeds. We'll follow. Current Visit: No Status: Acute Code(s): J96.00 - ACUTE RESPIRATORY FAILURE , UNSP W HYPOXIA OR HYPERCAPNIA SNOMED Code(s): 21559912
[2018-04-12] MEDS: SODIUM CHLORIDE 0.9% 1,000 ML IV SCH (15:05)
[2018-04-12 17:00] LABS: Glucose,Whole Blood 101 mg/dL (75-99)
[2018-04-12 20:15] LABS: Glucose,Whole Blood 75 mg/dL (75-99)
[2018-04-12] MEDS: clonazePAM 1 MG TAB PO SCH (20:48)
[2018-04-12] MEDS: CITALOPRAM HYDROBROMIDE 20 MG TAB PO SCH (20:49)
[2018-04-13 00:04] LABS: Glucose,Whole Blood 81 mg/dL (75-99)
[2018-04-13] MEDS: METOCLOPRAMIDE 5 MG/ML 2 ML VIAL IVP SCH ×2 (00:33→05:41)
[2018-04-13] MEDS: HEPARIN SODIUM,PORCINE 5,000 UNIT/ML 1 ML VIAL SQ SCH ×2 (00:33→07:37)
[2018-04-13] MEDS: HYDROmorphone 1 MG/ML 1 ML SYRINGE IVP PRN (00:34)
[2018-04-13] MEDS: INSULIN ASPART (NovoLOG) 100 UNIT/ML VIAL SQ SCH ×2 (01:47→04:10)
[2018-04-13] MEDS: IPRATROPIUM-ALBUTEROL 3 ML NEB INHALATION PRN (03:09)
[2018-04-13 04:07] LABS: Glucose,Whole Blood 109 mg/dL (75-99)
[2018-04-13 05:06] LABS: HCT 32.7 % (39.0-53.0); HGB 10.5 gm/dL (13.0-17.5); MCH 30.8 pg (25.0-35.0); MCHC 32.2 g/dL (31.0-37.0); MCV 95.5 fL (80.0-100.0); Mean Platelet Volume 7.4; Platelet Count 225 k/uL (150-450); RBC 3.42 m/uL (4.30-5.90); RDW 13.6 % (11.5-15.5); WBC 6.7 k/uL (3.8-10.6)
[2018-04-13 05:21] LABS: Anion Gap 1 mmol/L; Blood Urea Nitrogen 20 mg/dL (9-20); Calcium 8.4 mg/dL (8.4-10.2); Carbon Dioxide 36 mmol/L (22-30); Chloride 95 mmol/L (98-107); Glucose 101 mg/dL (74-99); Magnesium 1.8 mg/dL (1.6-2.3); Phosphorus 3.7 mg/dL (2.5-4.5); Sodium 132 mmol/L (137-145)
[2018-04-13] MEDS: MAGNESIUM SULFATE-D5W PMX 1 GM in DEXTROSE/WATER 1 100ML.BAG IVPB SCH ×2 (05:46→06:57)
[2018-04-13 07:30] LABS: ABG Base Excess 12.9 mmol/L; ABG HCO3 37 mmol/L (21-25); ABG Oxygen Saturation 95.2 % (94-97); ABG PCO2 53 mmHg (35-45); ABG PH 7.45 (7.35-7.45); ABG PO2 73 mmHg (83-108); ABG TCO2 39 mmol/L (19-24)
[2018-04-13] MEDS: LACTULOSE 20 GM/30 ML CUP PO SCH (07:31)
[2018-04-13] MEDS: BUDESONIDE 1 MG/2 ML NEBU INHALATION SCH (07:34)
[2018-04-13] MEDS: FORMOTEROL FUMARATE 20 MCG/2 ML NEBU INHALATION SCH (07:34)
[2018-04-13] MEDS: IPRATROPIUM-ALBUTEROL 3 ML NEB INHALATION SCH ×2 (07:34→13:50)
[2018-04-13] MEDS: FAMOTIDINE 20 MG/2 ML VIAL IV SCH (07:40)
[2018-04-13] MEDS: predniSONE 20 MG TAB PO SCH (07:40)
[2018-04-13] MEDS: cloNIDine HCL 0.2 MG TAB PO SCH (07:40)
[2018-04-13] MEDS: amLODIPine 10 MG TAB PO SCH (07:40)
[2018-04-13] MEDS: CHLORHEXIDINE GLUCONATE 15 ML CUP MUCOUS MEM SCH (07:40)
[2018-04-13] MEDS: NYSTATIN 100,000 UNIT/GM POWD 15 GM TOPICAL SCH (07:41)
[2018-04-13 08:15] VITALS: TEMP 98.4
[2018-04-13] MEDS: CLEVIDIPINE BUTYRATE 25 MG in EMPTY BAG 1 BAG IV SCH (08:15)
--- NOTE | 2018-04-13 08:20 | XR ---
EXAMINATION TYPE: XR chest 1V portable DATE OF EXAM: 04/13/2018 COMPARISON: Prior chest x-ray 04/12/2018 HISTORY: Shortness of breath TECHNIQUE: Single frontal view of the chest is obtained. FINDINGS: Tracheostomy tube overlying the tracheal air column and left subclavian central venous cat heter are again noted. No pneumothorax or pleural effusion. There are cardiac leads. Cardiac mediasti nal silhouette, pulmonary vascularity and jean carlos are stable. No evident airspace disease. IMPRESSION: Stable exam. No acute abnormality.
[2018-04-13] MEDS ORDERED: BISACODYL 10 MG SUPP RECTAL SCH (09:00)
[2018-04-13 10:35] VITALS: RESP 17
--- NOTE | 2018-04-13 10:48 | P.PN ---
Subjective Progress Note Date: 04/13/18 Principal diagnosis: Acute hypoxic and hypercapnic respiratory failure secondary to COPD exacerbation , and failure to wean from mechanical ventilation. Status post tracheostomy. A 57-year-old male patient with advanced COPD with an FEV1 of less than 30% of predicted and chronic hypoxic respiratory failure with reduction dependent who also has history of obstructive sleep apnea mechanical CPAP therapy. The patient has an AHI of 23 and the patient has been maintained on CPAP therapy at a pressure of 9 cm of water on outpatient basis. In terms of COPD, the patient has been receiving Dulera, theophylline and maintenance 5 mg of prednisone a daily basis. The patient had 2 hospitalizations back in 2018 in the last hospitalization was in January 2018 for an acute on top of chronic hypoxic respiratory failure and COPD exacerbation. The patient was treated and the patient was discharged home. Over the past 24 hours, the patient became acutely ill. His had a rest or checked infection subsequently he got sick and within 24 hours he started having fever and chills and cough and congestion and shortness of breath and for that reason he was brought into the hospital. On route, the patient was placed on BiPAP. The same was done in the emergency department. He checked positive for influenza a and he was started on Tamiflu in addition to bronchodilators and steroids. He continued to be on a BiPAP and later on he failed BiPAP and he had to be intubated and placed on a mechanical ventilator. This morning, the patient is an assist-control mode of ventilation. His tidal volumes of 400 with an FiO2 of 50% with a PEEP of 5 and respiratory rate of 20. His peak air pressure is around and static air pressure of 22. There has been improvement in his acid-base status. The morning blood gas showed a pH of 7.32 with a pCO2 of 55 and pO2 of 172 and this was on FiO2 of 50%. Chest x-rays consistent with COPD and there is no evidence of any pulmonary infiltration or pneumonia. The patient had some diminished urine output and the patient is currently on IV fluids at the rate of 75 mL an hour. No leukocytosis. Renal function is stable. Currently sedated with Diprivan and, comfortable. Hemodynamically stable on no pressors. No reported chest pain. No reported swelling in lower extremities. Family is at the bedside. Reevaluated today on 04/12/2018, patient is off sedation, on mechanical ventilation, assist control mode of mechanical ventilation. Went ahead and tried the patient on pressure support of 10 and CPAP, and that seemed to be fairly well-tolerated, however the patient a blood pressure was noted to be elevated, and I recommended starting the patient on amlodipine via PEG tube.. Patient seems to have significant abdominal distention, and I recommended to continue lactulose, Dulcolax suppository, was ordered, and I have also recommended Reglan. [facility], and he was apparently accepted to their facility, I will likely proceed with transfer plans today. I did recommend placing the tube on suction because of his abdominal distention, and apparently the patient hasn't had a bowel movement in quite some time. May even consider a flat plate of the abdomen. I'm hoping with lactulose and Reglan, this will improve his GI peristalsis. Labs and ABG were reviewed. Ventilator settings were reviewed. Reevaluated today on 04/13/2018, patient remains on mechanical ventilation, yesterday he tolerated about 6 hours of pressure support and CPAP. Patient remains extremely weak, and he could barely raise his arms against gravity. Patient is now on assist control mode of mechanical ventilation, and I switched him for another trial of weaning with pressure support of 10 and CPAP. Patient is being considered for transfer today to a [facility], and we will proceed with that. I have suggested removing that triple-lumen catheter, and switching to a peripheral IV, however the [facility]. Prefers keeping the central line for now, and they will do the switching in the facility. Patient had good bowel movements over the last 24 hours, and his tube feeding via PEG tube was restarted last night. Chest x-ray was reviewed labs were reviewed ABG this morning showed a pO2 of 73 pCO2 of 53 pH of 7.45. Electrolytes were relatively normal renal profile is normal CBC is relatively normal. Chest x-ray is relatively unremarkable. Objective - Vital Signs Vital signs: Vital Signs Temp 98.4 F 04/13/18 08:00 Pulse 73 04/13/18 10:00 Resp 17 04/13/18 10:00 BP 102/62 04/13/18 10:00 Pulse Ox 98 04/13/18 10:00 Intake & Output 04/12/18 04/13/18 04/13/18 18:59 06:59 18:59 Intake Total 520 695 315 Output Total 1170 815 750 Balance -650 -120 -435 Weight 74.3 kg 74.5 kg Intake: IV 240 240 80 Sodium Chloride 0.9% 1, 240 240 80 000 ml @ 20 mls/hr IV . Q24H [facility] Rx#:[id number] Intake, IV Titration 100 Amount Magnesium Sulfate-D5w Pmx 100 1 gm In Dextrose/Water 1 100ml.bag @ 100 mls/hr IVPB Q1H [facility] Rx#: [id number] Tube Feeding 120 395 145 Other 60 60 90 Output: Gastric Drainage 200 Urine 970 815 750 Other: Voiding Method Indwelling Catheter Indwelling Catheter Indwelling Catheter ABP, PAP, CO, CI - Last Documented Arterial Blood Pressure 129/57 - Exam Physical Exam: Revealed a 57-year-old white male, on mechanical ventilation, generally weak, followed simple instructions. Head: Atraumatic, normocephalic. Tracheostomy tube #8 was noted. HEENT:[Neck is supple.] [No neck masses.] [No thyromegaly.] [No JVD.] Chest: [Extremely diminished breath sound bilaterally, no rhonchi and no wheezes. Cardiac Exam: [Normal S1 and S2, no S3 gallop, no murmur.] Abdomen: [Slightly distended, but nontender, diminished bowel sounds. Extremities: [No clubbing, no edema, no cyanosis.] Good pulses bilaterally. Neurological Exam: [No focal neurologic deficit.] Except the patient is noted to be generally weak, profound weakness was noted in his oral 4 extremities. Patient could barely raise his arms against gravity. The same for the lower extremities was noted. Skin: No rashes. Lymphatics: No lymphadenopathy. - Labs CBC & Chem 7: 04/13/18 05:00 04/13/18 05:00 Labs: Abnormal Lab Results - Last 24 Hours (Table) 04/12/18 04/12/18 04/12/18 Range/Units 12:00 12:51 16:32 RBC (4.30-5.90) m/uL Hgb (13.0-17.5) gm/dL Hct (39.0-53.0) % ABG pCO2 (35-45) mmHg ABG pO2 (83-108) mmHg ABG HCO3 (21-25) mmol/L ABG Total CO2 (19-24) mmol/L Sodium (137-145) mmol/L Chloride (98-107) mmol/L Carbon Dioxide (22-30) mmol/L Creatinine (0.66-1.25) mg/dL Glucose (74-99) mg/dL POC Glucose (mg/dL) 107 H 125 H 101 H (75-99) mg/dL 04/13/18 04/13/18 04/13/18 Range/Units 04:05 05:00 05:00 RBC 3.42 L (4.30-5.90) m/uL Hgb 10.5 L (13.0-17.5) gm/dL Hct 32.7 L (39.0-53.0) % ABG pCO2 (35-45) mmHg ABG pO2 (83-108) mmHg ABG HCO3 (21-25) mmol/L ABG Total CO2 (19-24) mmol/L Sodium 132 L (137-145) mmol/L Chloride 95 L (98-107) mmol/L Carbon Dioxide 36 H (22-30) mmol/L Creatinine 0.40 L (0.66-1.25) mg/dL Glucose 101 H (74-99) mg/dL POC Glucose (mg/dL) 109 H (75-99) mg/dL 04/13/18 Range/Units 07:28 RBC (4.30-5.90) m/uL Hgb (13.0-17.5) gm/dL Hct (39.0-53.0) % ABG pCO2 53 H (35-45) mmHg ABG pO2 73 L (83-108) mmHg ABG HCO3 37 H (21-25) mmol/L ABG Total CO2 39 H (19-24) mmol/L Sodium (137-145) mmol/L Chloride (98-107) mmol/L Carbon Dioxide (22-30) mmol/L Creatinine (0.66-1.25) mg/dL Glucose (74-99) mg/dL POC Glucose (mg/dL) (75-99) mg/dL Assessment and Plan Assessment: Impression: 1 acute on chronic hypoxic and hypercapnic respiratory failure requiring intubation and mechanical ventilation. 2 acute COPD exacerbation triggered by influenza pulmonary infection. 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 5 severe advanced COPD FEV1 less than 30%. 6 chronic anxiety/generalized anxiety disorder. 7 obstructive sleep apnea syndrome maintained on CPAP at home at 9 cm of water pressure. 8 ileus, resolved. 9 benign essential hypertension. Recommendation: Continue present supportive care measures, continue daily weaning trials, placed again on pressure support and CPAP this morning. Continue lactulose, continue Reglan. Patient will definitely be extremely difficult to wean, and at one point he may be switched to a trach collar. Considering the difficulty weaning the patient, arrangements were made to transfer the patient to a [facility] which would be done today. Patient was accepted, and transfer is in progress. In the meantime continue bronchodilators and steroids. Prednisone will remain the same for now at 40 mg daily via PEG tube. Updrafts will remain the same. Long-term prognosis remains definitely poor and guarded. Critical care time is 32 minutes Time with Patient: Greater than 30
--- NOTE | 2018-04-13 10:55 | P.DS ---
Providers Date of admission: 03/30/18 19:08 Expected date of discharge: 04/13/18 Attending physician: Ralph Guerrero Consults: 03/30/18 20:09 Consult Physician Routine Consulting Provider: Radha Ho Consult Reason/Comments: COPD, respiratory failure Do you want consulting provider notified?: Already Contacted 04/03/18 14:36 Consult Physician Routine Consulting Provider: Srinivasa Torres Consult Reason/Comments: trach and peg tube Do you want consulting provider notified?: Yes, Notify in am Primary care physician: Naye Doll Hospital Course: Discharge diagnosis - Acute respiratory failure status post intubation and failure to wean right now on trach - COPD exacerbation due to influenza A contributing to above - Critical illness neuropathy - PEG tube feeding - History of obstructive sleep apnea - Ileus - Hypertension Hospital course Very pleasant 57-year-old gentleman with advanced COPD was admitted for COPD exacerbation. He was in severe respiratory distress. He was intubated and was on mechanical ventilation. He failed to wean and has trach now. He also had influenza a and finish the course of Tamiflu. He is extremely weak because of critical illness polyneuropathy and prolonged ICU stay. He also had PEG tube placed. He eventually recovered during his lower hospital stay. He was maintained on bronchodilators, steroids, and azithromycin.. He started having abdominal discomfort because of no bowel movements for the past 2 days. Abdominal x-ray was done which showed ileus. He was seen by general surgery who suggested to continue Dulcolax and the lactulose. He had 2 bowel movements following that and is discomfort eased. He is having bowel sounds as well. Plans for eventually transferred referring him to select facility once cleared by pulmonology and dull surgery. On 04/13/2018 On exam, alert and oriented x3. HEENT: Conjunctivae normal. eyes normal. NECK: No JVD. No thyroid enlargement. No LNs CARDIOVASCULAR: S1, S2 muffled. No murmur RESPIRATION: Breath sounds diminished in the bases. No rhonchi or crackles. No bronchial breathing. He is on trach ABDOMEN: Soft, nontender . No guarding. no masses palpable. No ascites, No hepatosplenomegaly.Bowel sounds heard. LEGS: No edema. no swelling NERVOUS SYSTEM: Cranial N 2-12 grossly normal. Moves all 4 limbs. No focal deficits. No sensory deficit. No signs of cerebellar dysfucntion. Skin: no ulcer no rash Plan - He's been discharge on breathing treatments - Patient is to continue prednisone 40 mg daily for now intravenous tolerated by the physician at the facility - Continue lactulose and Dulcolax suppository for constipation. Patient Condition at Discharge: Fair Plan - Discharge Summary Discharge Rx Participant: No New Discharge Prescriptions: New amLODIPine [Norvasc] 10 mg PO DAILY #30 tab Bisacodyl [Dulcolax] 10 mg RECTAL DAILY PRN #30 supp PRN Reason: Constipation Citalopram Hydrobromide [CeleXA] 60 mg PO HS #30 tab clonazePAM [KlonoPIN] 1 mg PO HS #30 tab cloNIDine HCL [Catapres] 0.1 mg PO TID #60 tab Formoterol Fumarate [Perforomist] 20 mcg INHALATION RT-BID #1 nebu Lactulose [Cephulac] 10 gm PO DAILY PRN #60 ml PRN Reason: Constipation predniSONE 40 mg PO DAILY #7 tab Continue Fexofenadine HCl [Alaina Allergy] 180 mg PO DAILY Mometasone/Formoterol [Dulera 200 Mcg/5 Mcg Inhaler] 2 puff INHALATION RT-BID Alendronate Sodium [Fosamax] 70 mg PO DE [place] CRUZ Albuterol Sulfate [Proair Hfa] 2 puff INHALATION RT-QID PRN PRN Reason: Shortness Of Breath Theophylline Anhydrous [Uniphyl] 200 mg PO BID predniSONE 5 mg PO DAILY #0 Ipratropium-Albuterol Nebulize [Duoneb 0.5 mg-3 mg/3 ml Soln] 3 ml INHALATION RT-QID PRN PRN Reason: Shortness Of Breath Azithromycin 250 mg PO Q48H Discharge Medication List Fexofenadine HCl [Alaina Allergy] 180 mg PO DAILY 03/21/15 [History] Mometasone/Formoterol [Dulera 200 Mcg/5 Mcg Inhaler] 2 puff INHALATION RT-BID [History] Albuterol Sulfate [Proair Hfa] 2 puff INHALATION RT-QID PRN 07/28/16 [History] Alendronate Sodium [Fosamax] 70 mg PO DE [place] CRUZ 07/28/16 [History] Theophylline Anhydrous [Uniphyl] 200 mg PO BID 12/20/16 [History] predniSONE 5 mg PO DAILY #0 12/23/16 [Rx] Ipratropium-Albuterol Nebulize [Duoneb 0.5 mg-3 mg/3 ml Soln] 3 ml INHALATION RT -QID PRN 01/04/18 [History] Azithromycin 250 mg PO Q48H 03/30/18 [History] Bisacodyl [Dulcolax] 10 mg RECTAL DAILY PRN #30 supp 04/13/18 [Rx] Citalopram Hydrobromide [CeleXA] 60 mg PO HS #30 tab 04/13/18 [Rx] Formoterol Fumarate [Perforomist] 20 mcg INHALATION RT-BID #1 nebu 04/13/18 [Rx] Lactulose [Cephulac] 10 gm PO DAILY PRN #60 ml 04/13/18 [Rx] amLODIPine [Norvasc] 10 mg PO DAILY #30 tab 04/13/18 [Rx] cloNIDine HCL [Catapres] 0.1 mg PO TID #60 tab 04/13/18 [Rx] clonazePAM [KlonoPIN] 1 mg PO HS #30 tab 04/13/18 [Rx] predniSONE 40 mg PO DAILY #7 tab 04/13/18 [Rx] Follow up Appointment(s)/Referral(s): Naye Doll DO [Primary Care Provider] - 1-2 days Activity/Diet/Wound Care/Special Instructions: If you start having any increased shortness of breath, increased cough, increased fevers or chills, increased chest pain racing heart, any altered mental status, lightheadedness or dizziness, loss of vision or blurry vision, syncope, any chest pain or racing heart, any bloody bowel movements or any bloody emesis, any to call 911 and come to the ER immediately Discharge Disposition: [facility]
[2018-04-13 11:02] VITALS: BP 112/68; PULSE 78
[2018-04-13 11:43] LABS: Glucose,Whole Blood 138 mg/dL (75-99)
[2018-04-13] MEDS ORDERED: INSULIN ASPART (NovoLOG) 100 UNIT/ML VIAL SQ SCH (12:00)
== END 2018-04-13 14:19 | DRG 4 ==
LOC: EC 17:14 → 2SICU 19:08
PROVIDERS: ADMIT Internal Medicine; ATTEND Internal Medicine
PROC: 5A09357 Assistance with Respiratory Ventilation, Less than 24 Consecutive Hours, Continuous Positive Airway Pressure (ICD-10-PCS; 2018-03-30)
PROC: 5A1955Z Respiratory Ventilation, Greater than 96 Consecutive Hours (ICD-10-PCS; principal; 2018-03-31)
PROC: 4A133BC Monitoring of Arterial Pressure, Coronary, Percutaneous Approach (ICD-10-PCS; 2018-03-31)
PROC: 03HY32Z Insertion of Monitoring Device into Upper Artery, Percutaneous Approach (ICD-10-PCS; 2018-03-31)
PROC: 02HV33Z Insertion of Infusion Device into Superior Vena Cava, Percutaneous Approach (ICD-10-PCS; 2018-03-31)
PROC: 0DH63UZ Insertion of Feeding Device into Stomach, Percutaneous Approach (ICD-10-PCS; 2018-04-05)
PROC: 0B113F4 Bypass Trachea to Cutaneous with Tracheostomy Device, Percutaneous Approach (ICD-10-PCS; 2018-04-05 08:15)
DX: J96.21 Acute and chronic respiratory failure with hypoxia (principal); E87.2 Acidosis; G62.81 Critical illness polyneuropathy; G72.81 Critical illness myopathy; J44.0 Chronic obstructive pulmonary disease with (acute) lower respiratory infection; J44.1 Chronic obstructive pulmonary disease with (acute) exacerbation; K56.7 Ileus, unspecified; J96.22 Acute and chronic respiratory failure with hypercapnia; E87.5 Hyperkalemia; F17.210 Nicotine dependence, cigarettes, uncomplicated; F41.1 Generalized anxiety disorder; G47.33 Obstructive sleep apnea (adult) (pediatric); I10 Essential (primary) hypertension; J10.1 Influenza due to other identified influenza virus with other respiratory manifestations; J20.9 Acute bronchitis, unspecified; K59.00 Constipation, unspecified; R45.1 Restlessness and agitation; Z79.51 Long term (current) use of inhaled steroids; Z79.52 Long term (current) use of systemic steroids; Z79.83 Long term (current) use of bisphosphonates; Z79.899 Other long term (current) drug therapy; Z87.442 Personal history of urinary calculi; Z80.1 Family history of malignant neoplasm of trachea, bronchus and lung; Z82.5 Family history of asthma and other chronic lower respiratory diseases
CPT/HCPCS: 36415; 36600; 43246; 71045; 74018; 74019; 80048; 80053; 82550; 82553; 82805; 83605; 83735; 83880; 84100; 84132; 84484; 85025; 85027; 85610; 85730; 87040; 87070; 87205; 87502; 93005; 94002; 94003; 94640; 94660; 96365; 96366; 96368; 96375; 99285

== ENCOUNTER 2018-12-09 09:24 | Inpatient (IN) | payer BC ==
[2018-12-09] MEDS ORDERED: IPRATROPIUM 0.5 MG/2.5 ML NEBU INHALATION STA (09:41)
[2018-12-09] MEDS ORDERED: DEXAMETHASONE SOD PHOSPHATE 10 MG/ML 1 ML VIAL IV STA (09:41)
[2018-12-09] MEDS ORDERED: ALBUTEROL NEBULIZED 2.5 MG/3 ML INHALATION STA (09:41)
--- NOTE | 2018-12-09 09:43 | ED ---
General Adult HPI - General Chief complaint: Shortness of Breath Stated complaint: SOB Time Seen by Provider: 12/09/18 09:25 Source: patient Mode of arrival: ambulatory Limitations: no limitations - History of Present Illness Initial comments: Dictation was produced using [employer] dictation software. please excuse any grammatical, word or spelling errors. Chief Complaint: 58-year-old male past medical history of COPD, sleep apnea presents with shortness of breath and cough. History of Present Illness: 58-year-old male he has been treated for bronchitis by his primary care physician recently. Patient is past medical history of COPD. Completed multiple days of antibiotics and steroids without significant improvement of symptoms. She persisted his symptoms acutely worsened today brought him to come to the emergency department. Patient complains of runny nose. Denies any sore throat. Denies any constitutional symptoms. The ROS documented in this emergency department record has been reviewed and confirmed by me. Those systems with pertinent positive or negative responses have been documented in the HPI. All other systems are other negative and/or noncontributory. PHYSICAL EXAM: General Impression: Alert and oriented x3, , coughing dyspneic HEENT: Normocephalic atraumatic, extra-ocular movements intact, pupils equal and reactive to light bilaterally, mucous membranes moist. Cardiovascular: Heart regular rate and rhythm, S1&S2 audible, no murmurs, rubs or gallops Chest: Diffuse wheezing Abdomen: Bowel sounds present, abdomen soft, non-tender, non-distended, no organomegaly Musculoskeletal: Pulses present and equal in all extremities, no peripheral edema Motor: no focal deficits noted Neurological: CN II-XII grossly intact, no focal motor or sensory deficits noted Skin: Intact with no visualized rashes Psych: Normal affect and mood ED course: 58-year-old male clinical presentation consistent with COPD exacerbation. As upon arrival shows heart rate of 120, 90% oxygen saturation on 3 L nasal cannula. Respiratory rate of 24. Clinical presentation consistent with COPD exacerbation. Laboratory evaluation obtained. CBC unremarkable. Blood gases shows pH of 7.3 pCO2 of 61 with a bica rb of 35. Metabolic panel is unremarkable. Chest x-ray shows nothing acute however there is demonstrated COPD. Patient given breathing treatment still showing signs of respiratory distress. Still wheezing however moving air slightly better. Given patient's clinical presentation I believe he would benefit from inpatient admission for [id number] breathing treatments and medical monitoring. Discussed patient case with Dr. Stuart who is willing to accept patients care. - Related Data Home Medications Medication Instructions Recorded Confirmed Fexofenadine HCl [Alaina Allergy] 180 mg PO DAILY 03/21/15 03/30/18 Mometasone/Formoterol [Dulera 200 2 puff INHALATION RT-BID 03/21/15 03/30/18 Mcg/5 Mcg Inhaler] Albuterol Sulfate [Proair Hfa] 2 puff INHALATION RT-QID PRN 07/28/16 03/30/18 Alendronate Sodium [Fosamax] 70 mg PO DE [place] CRUZ 07/28/16 03/30/18 Theophylline Anhydrous [Uniphyl] 200 mg PO BID 12/20/16 03/30/18 Ipratropium-Albuterol Nebulize 3 ml INHALATION RT-QID PRN 01/04/18 03/30/18 [Duoneb 0.5 mg-3 mg/3 ml Soln] Azithromycin 250 mg PO Q48H 03/30/18 03/30/18 Previous Rx's Medication Instructions Recorded predniSONE 5 mg PO DAILY #0 12/23/16 Bisacodyl [Dulcolax] 10 mg RECTAL DAILY PRN #30 supp 04/13/18 Citalopram Hydrobromide [CeleXA] 60 mg PO HS #30 tab 04/13/18 Formoterol Fumarate [Perforomist] 20 mcg INHALATION RT-BID #1 nebu 04/13/18 Lactulose [Cephulac] 10 gm PO DAILY PRN #60 ml 04/13/18 amLODIPine [Norvasc] 10 mg PO DAILY #30 tab 04/13/18 cloNIDine HCL [Catapres] 0.1 mg PO TID #60 tab 04/13/18 clonazePAM [KlonoPIN] 1 mg PO HS #30 tab 04/13/18 predniSONE 40 mg PO DAILY #7 tab 04/13/18 Allergies Allergy/AdvReac Type Severity Reaction Status Date / Time No Known Allergies Allergy Verified 12/09/18 11:17 Review of Systems ROS Statement: Those systems with pertinent positive or pertinent negative responses have been documented in the HPI. ROS Other: All systems not noted in ROS Statement are negative. Past Medical History Past Medical History: COPD, Sleep Apnea/CPAP/BIPAP Additional Past Medical History / Comment(s): COPD, previous hospitalization for COPD exacerbations, chronic hypoxic respiratory failure, kidney stones, CPAP/oxygen at night, potential Diabetes (Possibly steroids involved), chronic anxiety History of Any Multi-Drug Resistant Organisms: None Reported Past Surgical History: Hernia Repair Additional Past Surgical History / Comment(s): . Past Anesthesia/Blood Transfusion Reactions: No Reported Reaction Additional Past Anesthesia/Blood Transfusion Reaction / Comment(s): no blood transfusions Past Psychological History: Anxiety Smoking Status: Current some day smoker Past Alcohol Use History: Occasional Past Drug Use History: Marijuana - Past Family History Father Family Medical History: COPD Additional Family Medical History / Comment(s): of lung cancer Mother Family Medical History: Asthma General Exam Limitations: no limitations Course Vital Signs 12/09/18 12/09/18 12/09/18 09:26 09:46 09:52 Temperature 97.6 F Pulse Rate 120 H 106 H Respiratory 24 22 20 Rate Blood Pressure 150/91 O2 Sat by Pulse 90 L Oximetry 12/09/18 12/09/18 10: 10:49 Temperature Pulse Rate 101 H 132 H Respiratory Rate Blood Pressure O2 Sat by Pulse Oximetry Medical Decision Making - Lab Data Result diagrams: 12/09/18 09:35 12/09/18 09:35 Lab Results 12/09/18 12/09/18 12/09/18 Range/Units 09:35 09:35 09:35 WBC 10.6 (3.8-10.6) k/uL RBC 4.50 (4.30-5.90) m/uL Hgb 14.0 (13.0-17.5) gm/dL Hct 43.3 (39.0-53.0) % MCV 96.3 (80.0-100.0) fL MCH 31.1 (25.0-35.0) pg MCHC 32.3 (31.0-37.0) g/dL RDW 12.8 (11.5-15.5) % Plt Count 235 (150-450) k/uL Neutrophils % 90 % Lymphocytes % 5 % Monocytes % 3 % Eosinophils % 1 % Basophils % 1 % Neutrophils # 9.6 H (1.3-7.7) k/uL Lymphocytes # 0.6 L (1.0-4.8) k/uL Monocytes # 0.3 (0-1.0) k/uL Eosinophils # 0.1 (0-0.7) k/uL Basophils # 0.1 (0-0.2) k/uL VBG pH 7.38 (7.31-7.41) VBG pCO2 61 H (37-51) mmHg VBG HCO3 35 H (24-28) mmol/L Sodium 139 (137-145) mmol/L Potassium 4.5 (3.5-5.1) mmol/L Chloride 95 L (98-107) mmol/L Carbon Dioxide 35 H (22-30) mmol/L Anion Gap 9 mmol/L BUN 16 (9-20) mg/dL Creatinine 0.78 (0.66-1.25) mg/dL Est GFR (CKD-EPI)AfAm >90 (>60 ml/min/1.73 sqM) Est GFR (CKD-EPI)NonAf >90 (>60 ml/min/1.73 sqM) Glucose 230 H (74-99) mg/dL Calcium 9.8 (8.4-10.2) mg/dL Disposition Clinical Impression: COPD exacerbation Disposition: ADMITTED IP TO THIS HOSP Condition: Fair Referrals: Naye Doll DO [Primary Care Provider] - 1-2 days Decision Time: 11:20
[2018-12-09 09:51] LABS: VBG PH 7.38 (7.31-7.41)
[2018-12-09 09:52] LABS: Basophils # (A) 0.1 k/uL (0-0.2); Basophils % (A) 1 %; Eosinophils # (A) 0.1 k/uL (0-0.7); Eosinophils % (A) 1 %; HCT 43.3 % (39.0-53.0); Lymphocytes # (A) 0.6 k/uL (1.0-4.8); Lymphocytes % (A) 5 %; MCH 31.1 pg (25.0-35.0); MCHC 32.3 g/dL (31.0-37.0); MCV 96.3 fL (80.0-100.0); Mean Platelet Volume 6.7; Monocytes # (A) 0.3 k/uL (0-1.0); Monocytes % (A) 3 %; Neutrophils # (A) 9.6 k/uL (1.3-7.7); Neutrophils % (A) 90 %; Platelet Count 235 k/uL (150-450); RDW 12.8 % (11.5-15.5); WBC 10.6 k/uL (3.8-10.6)
[2018-12-09] MEDS: MAGNESIUM SULFATE-D5W PMX 1 GM in DEXTROSE/WATER 1 100ML.BAG IVPB SCH ×2 (09:54→12:07)
[2018-12-09 10:00] LABS: African American GFR (CKD) >90 (>60 ml/min/1.73 sqM); Anion Gap 9 mmol/L; Blood Urea Nitrogen 16 mg/dL (9-20); Calcium 9.8 mg/dL (8.4-10.2); Carbon Dioxide 35 mmol/L (22-30); Chloride 95 mmol/L (98-107); Glucose 230 mg/dL (74-99); Potassium 4.5 mmol/L (3.5-5.1); Sodium 139 mmol/L (137-145)
[2018-12-09] MEDS ORDERED: CODEINE 30 MG TAB PO STA (11:05)
--- NOTE | 2018-12-09 11:05 | XR ---
EXAMINATION TYPE: XR chest 2V DATE OF EXAM: 12/09/2018 COMPARISON: 04/13/2018 TECHNIQUE: PA and lateral views submitted. HISTORY: Shortness of breath FINDINGS: The lungs are clear and there is no pneumothorax, pleural effusion, or focal pneumonia. Hyperinflat ion lungs suggests COPD. Hypertrophic and degenerative change of the spine noted. Prominence the pulm onary arteries can be associated with pulmonary arterial hypertension. IMPRESSION: 1. Correlate for COPD. Prominent pulmonary arteries can be associated with pulmonary arterial hyperte nsion..
[2018-12-09 12:17] VITALS: BMI 23.8
[2018-12-09 12:44] LABS: Glucose,Whole Blood 162 mg/dL (75-99)
--- NOTE | 2018-12-09 13:00 | P.HPIM ---
History of Present Illness 58-year-old man known history of COPD advance to COPD and uses 3 L of oxygen in the past patient was in ICU for prolonged period of time [facility] came in with complains of shortness of breath has been going on for last few 4 days with whitish sputum production patient the did smoke patient does smoke occasionally still. Patient has significant expiratory wheezing very limited air entry into bilateral lung joseph. Patient was started on systemic steroids inhalational treatments empiric antibiotics is being admitted for COPD exacerbation patient lately has been using 5 L of oxygen. Chest x-ray did not show pneumonia patient denied any fever chills. Patient is tachycardic secondary to hypoxemia Review of Systems REVIEW OF SYSTEMS: CONSTITUTIONAL: No fever, no malaise, no fatigue. HEENT: No recent visual problems or hearing problems. Denied any sore throat. CARDIOVASCULAR: No chest pain, orthopnea, PND, no palpitations, no syncope. PULMONARY: no hemoptysis. GASTROINTESTINAL: No diarrhea, no nausea, no vomiting, no abdominal pain. NEUROLOGICAL: No headaches, no weakness, no numbness. HEMATOLOGICAL: Denies any bleeding or petechiae. GENITOURINARY: Denies any burning micturition, frequency, or urgency. MUSCULOSKELETAL/RHEUMATOLOGICAL: Denies any joint pain, swelling, or any muscle pain. ENDOCRINE: Denies any polyuria or polydipsia. The rest of the 14-point review of systems is negative. Past Medical History Past Medical History: COPD, Pneumonia, Renal Disease, Respiratory Disorder, Sleep Apnea/CPAP/BIPAP Additional Past Medical History / Comment(s): Chronic hypoxic respiratory failure with home oxygen at 3L/NC, past respiratory failure with ET/vent/trach and peg tube, CPAP/oxygen at night, tracheobronchitis, bronchitis, elevated blood sugars with steroid use, kidney stones, osteopenia History of Any Multi-Drug Resistant Organisms: None Reported Past Surgical History: Hernia Repair, Tonsillectomy Additional Past Surgical History / Comment(s): R inguinal hernia repair, tracheostomy, peg tube. Past Anesthesia/Blood Transfusion Reactions: No Reported Reaction Additional Past Anesthesia/Blood Transfusion Reaction / Comment(s): no blood tr ansfusions Smoking Status: Current some day smoker - Past Family History Father Family Medical History: Cancer Additional Family Medical History / Comment(s): of lung cancer Mother Family Medical History: Asthma Medications and Allergies Home Medications Medication Instructions Recorded Confirmed Type Fexofenadine HCl [Alaina Allergy] 180 mg PO DAILY 03/21/15 12/09/18 History Mometasone/Formoterol [Dulera 200 2 puff INHALATION RT-BID 03/21/15 12/09/18 History Mcg/5 Mcg Inhaler] Albuterol Sulfate [Proair Hfa] 2 puff INHALATION RT-QID PRN 07/28/16 12/09/18 History Alendronate Sodium [Fosamax] 70 mg PO DE LA CRUZ 07/28/16 12/09/18 History Theophylline Anhydrous [Uniphyl] 200 mg PO BID 12/20/16 12/09/18 History Ipratropium-Albuterol Nebulize 3 ml INHALATION RT-QID PRN 01/04/18 12/09/18 History [Duoneb 0.5 mg-3 mg/3 ml Soln] amLODIPine [Norvasc] 10 mg PO DAILY #30 tab 04/13/18 12/09/18 Rx Albuterol Nebulized [Ventolin 2.5 mg INHALATION RT-Q4H PRN 12/09/18 12/09/18 History Nebulized] Amoxic-Pot Clav 875-125Mg 1 tab PO BID 12/09/18 12/09/18 History [Augmentin 875-125] Cyanocobalamin (Vitamin B-12) 1,000 mcg PO DAILY 12/09/18 12/09/18 History [Vitamin B-12] Potassium Citrate [Urocit-K] 40 meq PO DAILY 12/09/18 12/09/18 History Vitamin B Complex 1 cap PO DAILY 12/09/18 12/09/18 History predniSONE 5 mg PO DIRECTED 12/09/18 12/09/18 History predniSONE 20 mg PO BID 12/09/18 12/09/18 History Allergies Allergy/AdvReac Type Severity Reaction Status Date / Time No Known Allergies Allergy Verified 12/09/18 11:17 Physical Exam Vitals: Vital Signs Temp Pulse Resp BP Pulse Ox 12/09/18 12:11 101 H 20 123/74 96 12/09/18 10:49 132 H 12/09/18 10:19 101 H 12/09/18 09:52 106 H 20 12/09/18 09:46 22 12/09/18 09:26 97.6 F 120 H 24 150/91 90 L Intake and Output 12/08/18 12/09/18 12/09/18 22:59 06:59 14:59 Other: Weight 68.946 kg PHYSICAL EXAMINATION: GENERAL: The patient is alert and oriented x3, patient is is in [id number] respiratory distress. Well developed, well nourished. HEENT: Pupils are round and equally reacting to light. EOMI. No scleral icterus. No conjunctival pallor. Normocephalic, atraumatic. No pharyngeal erythema. No thyromegaly. CARDIOVASCULAR: S1 and S2 present. No murmurs, rubs, or gallops. Tachycardic regular PULMONARY: Significant expiratory wheezing on exam. Significantly decreased air entry into bilateral lung joseph ABDOMEN: Soft, nontender, nondistended, normoactive bowel sounds. No palpable organomegaly. MUSCULOSKELETAL: No joint swelling or deformity. EXTREMITIES: No cyanosis, clubbing, or pedal edema. NEUROLOGICAL: Gross neurological examination did not reveal any focal deficits. SKIN: No rashes. Results CBC & Chem 7: 12/09/18 09:35 12/09/18 09:35 Labs: Abnormal Lab Results - Last 24 Hours (Table) 12/09/18 12/09/18 12/09/18 Range/Units 09:35 09:35 09:35 Neutrophils # 9.6 H (1.3-7.7) k/uL Lymphocytes # 0.6 L (1.0-4.8) k/uL VBG pCO2 61 H (37-51) mmHg VBG HCO3 35 H (24-28) mmol/L Chloride 95 L (98-107) mmol/L Carbon Dioxide 35 H (22-30) mmol/L Glucose 230 H (74-99) mg/dL POC Glucose (mg/dL) (75-99) mg/dL 12/09/18 Range/Units 12:43 Neutrophils # (1.3-7.7) k/uL Lymphocytes # (1.0-4.8) k/uL VBG pCO2 (37-51) mmHg VBG HCO3 (24-28) mmol/L Chloride (98-107) mmol/L Carbon Dioxide (22-30) mmol/L Glucose (74-99) mg/dL POC Glucose (mg/dL) 162 H (75-99) mg/dL Thrombosis Risk Factor Assmnt - Choose All That Apply Any of the Below Risk Factors Present?: Yes Each Factor Represents 1 point: Abnormal pulmonary function (COPD), Age 41-60 years, Serious lung disease incl. pneumonia (< 1month) Other Risk Factors: No Other congenital or acquired thrombophilia - If yes, enter type in comment: No Thrombosis Risk Factor Assessment Total Risk Factor Score: 3 Thrombosis Risk Factor Assessment Level: Moderate Risk Assessment and Plan Plan: -Acute on chronic hypercapnic respiratory failure secondary to COPD exacerbation patient will be continued on inhaled steroids systemic steroids inhalational treatments. Counseling regarding smoking cessation is provided. -Hypertension -Obesity sleep apnea continue with CPAP machine -Sinus tachycardia: Secondary to hypoxemia expected to improve with improvement in hypoxemia. Due to prophylaxis with subcutaneous heparin and GI prophylaxis with Pepcid
--- NOTE | 2018-12-09 13:49 | P.CNPUL ---
History of Present Illness Consult date: 12/09/18 Requesting physician: Hany Stuart Reason for consult: dyspnea, COPD History of present illness: This is a very pleasant 58-year-old male patient with advanced COPD with an FEV1 of less than 30% of predicted and chronic hypoxic respiratory failure with reduction dependent who also has history of obstructive sleep apnea mechanical CPAP therapy. The patient has an AHI of 23 and the patient has been maintained on CPAP therapy at a pressure of 9 cm of water on outpatient basis. In terms of COPD, the patient has been receiving Dulera, theophylline and maintenance 5 mg of prednisone a daily basis. The patient had multiple hospitalizations for COPD exacerbations. He does have chronic and ongoing tobacco dependence despite the fact that he was here in March 2018 required intubation, trach and PEG placement and after 2 weeks here was 2 weeks at [facility]. He subsequently did recover and he was decannulated. He had been doing fairly well until recently developed increasing shortness of breath cough and congestion. He is seen at Dr. Han's office and was treated with antibiotics and predni sone without much improvement. He presented here to the emergency room for the same. Chest x-ray shows evidence of chronic obstructive pulmonary disease. There is noted prominent pulmonary arteries associated with possible pulmonary arterial hypertension. No evidence of focal pneumonia, no pneumothorax, no effusion. White count 10.6. Hemoglobin 14.0. Sodium 139. Potassium 4.5. Bicarb 35. Creatinine 0.78. He is seen today in consultation on the regular medical floor. He is awake and alert. He is in mild respiratory distress. He has a loose nonproductive cough. Maintaining O2 saturations in the 90s on 2 L/m per nasal cannula. He is tachycardic. Normotensive. Afebrile. He is quite dyspneic on minimal exertion and conversation. He's been initiated on azithromycin, Symbicort, oral prednisone and DuoNeb inhalations. Review of Systems REVIEW OF SYSTEMS: CONSTITUTIONAL: Denies any recent significant weight loss or weight gain. EYES: Denies change in vision. EARS, NOSE, MOUTH, THROAT: Denies headaches, denies sore throat. CARDIOVASCULAR: Denies chest pain, palpitations or syncopal episodes. RESPIRATORY: Positive for shortness of breath, cough, congestion no hemoptysis. GASTROINTESTINAL: Denies change in appetite, denies abdominal pain GENITOURINARY: Denies hematuria, denies infections. MUSKULOSKELETAL: Denies pain, denies swelling. INTEGUMENTARY: Denies rash, denies eczema. NEUROLOGICAL: Denies recent memory loss, no recent seizure activity. PSYCHIATRIC: Denies anxiety, denies depression. HEMATOLOGIC/LYMPHATIC: Denies anemia, denies enlarged lymph nodes. Past Medical History Past Medical History: COPD, Pneumonia, Renal Disease, Respiratory Disorder, Sleep Apnea/CPAP/BIPAP Additional Past Medical History / Comment(s): Chronic hypoxic respiratory failure with home oxygen at 3L/NC, past respiratory failure with ET/vent/trach and peg tube, CPAP/oxygen at night, tracheobronchitis, bronchitis, elevated blood sugars with steroid use, kidney stones, osteopenia History of Any Multi-Drug Resistant Organisms: None Reported Past Surgical History: Hernia Repair, Tonsillectomy Additional Past Surgical History / Comment(s): R inguinal hernia repair, tracheostomy, peg tube. Past Anesthesia/Blood Transfusion Reactions: No Reported Reaction Additional Past Anesthesia/Blood Transfusion Reaction / Comment(s): no blood transfusions Smoking Status: Current some day smoker - Past Family History Father Family Medical History: Cancer Additional Family Medical History / Comment(s): of lung cancer Mother Family Medical History: Asthma Medications and Allergies Home Medications Medication Instructions Recorded Confirmed Type Fexofenadine HCl [Alaina Allergy] 180 mg PO DAILY 03/21/15 12/09/18 History Mometasone/Formoterol [Dulera 200 2 puff INHALATION RT-BID 03/21/15 12/09/18 History Mcg/5 Mcg Inhaler] Albuterol Sulfate [Proair Hfa] 2 puff INHALATION RT-QID PRN 07/28/16 12/09/18 History Alendronate Sodium [Fosamax] 70 mg PO DE LA CRUZ 07/28/16 12/09/18 History Theophylline Anhydrous [Uniphyl] 200 mg PO BID 12/20/16 12/09/18 History Ipratropium-Albuterol Nebulize 3 ml INHALATION RT-QID PRN 01/04/18 12/09/18 History [Duoneb 0.5 mg-3 mg/3 ml Soln] amLODIPine [Norvasc] 10 mg PO DAILY #30 tab 04/13/18 12/09/18 Rx Albuterol Nebulized [Ventolin 2.5 mg INHALATION RT-Q4H PRN 12/09/18 12/09/18 History Nebulized] Amoxic-Pot Clav 875-125Mg 1 tab PO BID 12/09/18 12/09/18 History [Augmentin 875-125] Cyanocobalamin (Vitamin B-12) 1,000 mcg PO DAILY 12/09/18 12/09/18 History [Vitamin B-12] Potassium Citrate [Urocit-K] 40 meq PO DAILY 12/09/18 12/09/18 History Vitamin B Complex 1 cap PO DAILY 12/09/18 12/09/18 History predniSONE 5 mg PO DIRECTED 12/09/18 12/09/18 History predniSONE 20 mg PO BID 12/09/18 12/09/18 History Allergies Allergy/AdvReac Type Severity Reaction Status Date / Time No Known Allergies Allergy Verified 12/09/18 11:17 Physical Exam Vitals: Vital Signs Temp Pulse Resp BP Pulse Ox 12/09/18 13:18 20 12/09/18 12:11 101 H 20 123/74 96 12/09/18 10:49 132 H 12/09/18 10:19 101 H 12/09/18 09:52 106 H 20 12/09/18 09:46 22 12/09/18 09:26 97.6 F 120 H 24 150/91 90 L Intake and Output 12/08/18 12/09/18 12/09/18 22:59 06:59 14:59 Other: Weight 68.946 kg GENERAL EXAM: Alert, pleasant 58-year-old gentleman, in mild respiratory distress. On 2 L nasal cannula. Cushingoid features. HEAD: Normocephalic. EYES: Normal reaction of pupils, equal size. NOSE: Clear with pink turbinates. THROAT: Evidence of previous tracheotomy. No erythema or exudates. NECK: No masses, no JVD. CHEST: No chest wall deformity. LUNGS: Equal air entry with bilateral wheezing, few scattered rhonchi, diminished CVS: S1 and S2 normal with no audible murmur, regular rhythm. ABDOMEN: No hepatosplenomegaly, normal bowel sounds, no guarding or rigidity. SPINE: No scoliosis or deformity SKIN: No rashes CENTRAL NERVOUS SYSTEM: No focal deficits, tone is normal in all 4 extremities. EXTREMITIES: There is no peripheral edema. No clubbing, no cyanosis. Peripheral pulses are intact. Results - Laboratory Findings CBC and BMP: 12/09/18 09:35 12/09/18 09:35 Abnormal lab findings: Abnormal Labs 12/09/18 12/09/18 12/09/18 09:35 09:35 09:35 Neutrophils # 9.6 H Lymphocytes # 0.6 L VBG pCO2 61 H VBG HCO3 35 H Chloride 95 L Carbon Dioxide 35 H Glucose 230 H POC Glucose (mg/dL) 12/09/18 12:43 Neutrophils # Lymphocytes # VBG pCO2 VBG HCO3 Chloride Carbon Dioxide Glucose POC Glucose (mg/dL) 162 H - Diagnostic Findings Chest x-ray: image reviewed (No acute pulmonary process.) Assessment and Plan Assessment: Impression: 1 Acute exacerbation of severe oxygen dependent chronic obstructive pulmonary disease complicated by purulent tracheobronchitis. 2 Acute on top of chronic hypoxic respiratory failure, secondary to above 3 Acute on chronic hypercapnic respiratory failure secondary to COPD 4 Advanced COPD at baseline with FEV1 of less than 30% of predicted 5 Previous hospitalization here in March 2018 requiring prolonged mechanical ventilator with subsequent trach E and PEG tube placement [facility]. Discharge in April 2018. The cannulated. 6 Chronic and ongoing tobacco dependence 7 Chronic anxiety 8 Obstructive sleep apnea maintained on CPAP at a pressure of 9 cm of water on outpatient basis Plan: The patient was seen and evaluated by Dr. Reynoso. Chest x-ray labs reviewed. We will continue DuoNeb inhalations, add Pulmicort and Perforomist inhalations, DC'd oral prednisone and started on IV Solu-Medrol, empiric antibiotics in the form of azithromycin. Plan for bronchoscopy with BAL in the a.m. He is again educated regarding the importance of complete smoking cessation. NicoDerm patch will be offered. We will continue to follow and make further recommendations based on his clinical status. I, the cosigning physician, performed a history & physical examination of the patient. Lungs sounds with bilateral end expiratory wheeze, few scattered rhonchi, diminished. Maintaining good O2 saturations in the 90s on 2 L/m per nasal cannula. I discussed the assessment and plan of care with my nurse practitioner, Donna Neri. I attest to the above consultation as dictated by her. Time with Patient: Greater than 30
[2018-12-09] MEDS: IPRATROPIUM-ALBUTEROL 3 ML NEB INHALATION SCH ×2 (16:08→21:26)
[2018-12-09 16:43] LABS: Glucose,Whole Blood 268 mg/dL (75-99)
[2018-12-09] MEDS: cloNIDine HCL 0.1 MG TAB PO SCH (17:11)
[2018-12-09] MEDS: methylPREDNISolone SOD SUCCI 125 MG/2 ML VIAL IV SCH (17:12)
[2018-12-09] MEDS: HEPARIN SODIUM,PORCINE 5,000 UNIT/ML 1 ML VIAL SQ SCH (17:14)
[2018-12-09] MEDS: INSULIN ASPART (NovoLOG) 100 UNIT/ML VIAL SQ SCH (17:14)
[2018-12-09] MEDS ORDERED: SYMBICORT 160-4.5 MCG INHALER INHALATION SCH (20:00)
[2018-12-09] MEDS: FORMOTEROL FUMARATE 20 MCG/2 ML NEBU INHALATION SCH (21:26)
[2018-12-09] MEDS: BUDESONIDE 1 MG/2 ML NEBU INHALATION SCH (21:26)
[2018-12-09 23:50] LABS: Glucose,Whole Blood 150 mg/dL (75-99)
[2018-12-10] MEDS: INSULIN ASPART (NovoLOG) 100 UNIT/ML VIAL SQ SCH ×5 (00:03→22:12)
[2018-12-10] MEDS: ALPRAZolam 0.5 MG TAB PO PRN ×4 (00:03→22:16)
[2018-12-10] MEDS: cloNIDine HCL 0.1 MG TAB PO SCH ×4 (00:03→22:12)
[2018-12-10] MEDS: FAMOTIDINE 20 MG TAB PO SCH ×3 (00:03→22:12)
[2018-12-10] MEDS: LACTATED RINGERS 1,000 ML IV SCH ×2 (00:04→22:11)
[2018-12-10] MEDS: methylPREDNISolone SOD SUCCI 125 MG/2 ML VIAL IV SCH ×4 (00:04→17:04)
[2018-12-10] MEDS: HEPARIN SODIUM,PORCINE 5,000 UNIT/ML 1 ML VIAL SQ SCH ×3 (00:08→17:04)
[2018-12-10 07:14] LABS: Glucose,Whole Blood 135 mg/dL (75-99)
[2018-12-10] MEDS: AZITHROMYCIN 500 MG TAB PO SCH (07:38)
[2018-12-10] MEDS: FORMOTEROL FUMARATE 20 MCG/2 ML NEBU INHALATION SCH ×2 (08:33→19:41)
[2018-12-10] MEDS: BUDESONIDE 1 MG/2 ML NEBU INHALATION SCH ×2 (08:33→19:41)
[2018-12-10] MEDS: IPRATROPIUM-ALBUTEROL 3 ML NEB INHALATION SCH ×4 (08:33→19:41)
[2018-12-10] MEDS ORDERED: amLODIPine 10 MG TAB PO SCH (09:00)
[2018-12-10] MEDS ORDERED: predniSONE 20 MG TAB PO SCH (09:00)
[2018-12-10] MEDS ORDERED: THEOPHYLLINE 24 HOUR 400 MG CAP.ER.24H PO SCH (09:00)
[2018-12-10] MEDS ORDERED: LIDOCAINE 2% INJ 20 MG/ML INTRATRACH ONE ×2 (11:59→12:14)
[2018-12-10 12:09] LABS: Glucose,Whole Blood 136 mg/dL (75-99)
[2018-12-10] MEDS ORDERED: SODIUM CHLORIDE 0.9% 500 ML 500 ML IV ONE (12:13)
[2018-12-10] MEDS ORDERED: SODIUM CHLORIDE 0.9% 500 ML IV ONE (12:13)
--- NOTE | 2018-12-10 13:17 | P.PN ---
Subjective Progress Note Date: 12/10/18 Principal diagnosis: Acute exacerbation of oxygen dependent chronic obstructive pulmonary disease This is a very pleasant 58-year-old male patient with advanced COPD with an FEV1 of less than 30% of predicted and chronic hypoxic respiratory failure with reduction dependent who also has history of obstructive sleep apnea mechanical CPAP therapy. The patient has an AHI of 23 and the patient has been maintained on CPAP therapy at a pressure of 9 cm of water on outpatient basis. In terms of COPD, the patient has been receiving Dulera, theophylline and maintenance 5 mg of prednisone a daily basis. The patient had multiple hospitalizations for COPD exacerbations. He does have chronic and ongoing tobacco dependence despite the fact that he was here in March 2018 required intubation, trach and PEG placement and after 2 weeks here was 2 weeks at [facility]. He s ubsequently did recover and he was decannulated. He had been doing fairly well until recently developed increasing shortness of breath cough and congestion. He is seen at Dr. Han's office and was treated with antibiotics and prednisone without much improvement. He presented here to the emergency room for the same. Chest x-ray shows evidence of chronic obstructive pulmonary disease. There is noted prominent pulmonary arteries associated with possible pulmonary arterial hypertension. No evidence of focal pneumonia, no pneumothorax, no effusion. White count 10.6. Hemoglobin 14.0. Sodium 139. Potassium 4.5. Bicarb 35. Creatinine 0.78. He is seen today in consultation on the regular medical floor. He is awake and alert. He is in mild respiratory distress. He has a loose nonproductive cough. Maintaining O2 saturations in the 90s on 2 L/m per nasal cannula. He is tachycardic. Normotensive. Afebrile. He is quite dyspneic on minimal exertion and conversation. He's been initiated on azithromycin, Symbicort, oral prednisone and DuoNeb inhalations. The patient is seen today 12/10/2018 in follow-up on the regular medical floor. He is currently awake and alert in no acute distress. Breathing a bit easier today as compared to yesterday. Not quite back to his baseline. Still with a loose nonproductive cough. No chills or night sweats. He is maintaining O2 saturation in the 90s on 5 L/m per nasal cannula. He remains on bronchodilators, IV solu Medrol, antibiotics. The plan is for bronchoscopy with BAL today. Objective - Vital Signs Vital signs: Vital Signs Temp 97.9 F 12/10/18 12:53 Pulse 86 12/10/18 12:53 Resp 24 12/10/18 12:53 BP 115/71 12/10/18 07:00 Pulse Ox 98 12/10/18 12:53 Intake & Output 12/09/18 12/10/18 12/10/18 18:59 06:59 18:59 Weight 68.946 kg Other: Voiding Method Toilet Toilet # Voids 0 1 - Exam GENERAL EXAM: Alert, pleasant 58-year-old gentleman, on 5 L nasal cannula, comfortable in no apparent distress. HEAD: Normocephalic. EYES: Normal reaction of pupils, equal size. NOSE: Clear with pink turbinates. THROAT: No erythema or exudates. NECK: Evidence of previous tracheotomy. No masses, no JVD. CHEST: No chest wall deformity. LUNGS: Equal air entry with bilateral end expiratory wheeze, diminished. CVS: S1 and S2 normal with no audible murmur, regular rhythm. ABDOMEN: No hepatosplenomegaly, normal bowel sounds, no guarding or rigidity. SPINE: No scoliosis or deformity SKIN: No rashes CENTRAL NERVOUS SYSTEM: No focal deficits, tone is normal in all 4 extremities. EXTREMITIES: There is no peripheral edema. No clubbing, no cyanosis. Peripheral pulses are intact. - Labs CBC & Chem 7: 12/09/18 09:35 12/09/18 09:35 Labs: Abnormal Lab Results - Last 24 Hours (Table) 12/09/18 12/09/18 12/10/18 Range/Units 16:39 23:48 07:12 POC Glucose (mg/dL) 268 H 150 H 135 H (75-99) mg/dL 12/10/18 Range/Units 11:41 POC Glucose (mg/dL) 136 H (75-99) mg/dL Assessment and Plan Assessment: Impression: 1 Acute exacerbation of severe oxygen dependent chronic obstructive pulmonary disease complicated by purulent tracheobronchitis. 2 Acute on top of chronic hypoxic respiratory failure, secondary to above 3 Acute on chronic hypercapnic respiratory failure secondary to COPD 4 Advanced COPD at baseline with FEV1 of less than 30% of predicted 5 Previous hospitalization here in March 2018 requiring prolonged mechanical ventilator with subsequent trach E and PEG tube placement [facility]. Discharge in April 2018. The cannulated. 6 Chronic and ongoing tobacco dependence 7 Chronic anxiety 8 Obstructive sleep apnea maintained on CPAP at a pressure of 9 cm of water on outpatient basis Plan: The patient was seen and evaluated by Dr. Reynoso. He did undergo bronchoscopy with BAL today. Cultures are pending. We will continue with the current treatment plan. We will continue to follow and make further recommendations based on his clinical status. I, the cosigning physician, performed a history & physical examination of the patient. Lungs sounds with bilateral end expiratory wheeze, few scattered rhonchi, diminished. Maintaining good O2 saturations in the 90s on 5 L/m per nasal cannula. I discussed the assessment and plan of care with my nurse practitioner, Donna Neri. I attest to the above consultation as dictated by her.
--- NOTE | 2018-12-10 15:17 | PCN ---
PROCEDURE NOTE OPERATORS: 1. Dr. Reynoso. 2. Dr. Neri. 3. Gay Fiore RN, NPC PREOPERATIVE DIAGNOSES: Severe chronic obstructive pulmonary disease, respiratory failure, tracheobronchitis. POSTOPERATIVE DIAGNOSES: Severe chronic obstructive pulmonary disease, respiratory failure, tracheobronchitis. PROCEDURE DESCRIPTION: There was informed consent. There was universal timeout. Anesthesia provided unconscious sedation/general anesthesia. The patient's procedure took place in room #1. After the patient was adequately sedated and being fully monitored, the bronchoscope was inserted through the right nostril. It passed through the right nasopharynx into the oropharynx. The hypopharynx was identified and topicalized. The hypopharyngeal structures, including anterior commissure, true cords, false cords, arytenoids, piriform sinuses, right and left valleculae and epiglottis, all appeared normal. After topicalization, the bronchoscope was pushed through the glottic opening into the trachea. The trachea definitely had a saber-sheath appearance. I looked in the subglottic area where the patient had a previous tracheostomy. There was no subglottic stenosis or obstruction. The trachea otherwise appeared normal. The tracheal hilda was sharp. The right and left mainstem were topicalized. The right upper lobe and its 3 segments, the right middle lobe and its 2 segments, the right lower lobe and its 5 segments, the left upper lobe proper and its 2 segments, the lingula and its 2 segments, and the left lower lobe and its 4 segments all had similar findings of diffuse airway erythema and hyperemia. There was mucosal friability. There were thick secretions noted throughout. They were suctioned with some difficulty. Saline was used to suction the secretions. There was no dominant mass or tumor. The bronchoscope was wedged into the right middle lobe. The BAL took place. The patient tolerated the procedure well. Additional saline was instilled, and additional secretions were suctioned. There was no immediate complication. The patient tolerated procedure well and the patient will be recovered. MMODL / IJN: [id number] / MTDD
[2018-12-10 16:47] LABS: Glucose,Whole Blood 219 mg/dL (75-99)
--- NOTE | 2018-12-10 17:17 | P.PN ---
Subjective Progress Note Date: 12/10/18 12/10/2018 in follow-up on the regular medical floor. He is currently awake and alert in no acute distress. Breathing a bit easier today as compared to yesterday. Not quite back to his baseline. Still with a loose nonproductive cough. No chills or night sweats. He is maintaining O2 saturation in the 90s on 5 L/m per nasal cannula. He remains on bronchodilators, IV solu Medrol, antibiotics. The plan is for bronchoscopy with BAL today. Objective - Vital Signs Vital signs: Vital Signs Temp 97.9 F 12/10/18 07:00 Pulse 100 12/10/18 11:30 Resp 24 12/10/18 10:46 BP 115/71 12/10/18 07:00 Pulse Ox 99 12/10/18 07:00 Intake & Output 12/09/18 12/10/18 12/10/18 18:59 06:59 18:59 Weight 68.946 kg Other: Voiding Method Toilet Toilet # Voids 0 1 - Exam - Constitutional General appearance: Present: average body habitus, cooperative, no acute distress - EENT Eyes: Present: anicteric sclerae, EOMI, PERRLA, normal appearance ENT: Present: hearing grossly normal, normal oropharynx Ears: bilateral: normal - Neck Neck: Present: normal ROM. Absent: lymphadenopathy, rigidity, thyromegaly Carotids: negative: bruit present Thyroid: bilateral: normal size, negative: enlarged, nodule - Respiratory Respiratory: bilateral: CTA, negative: rales, rhonchi, wheezing - Cardiovascular Rhythm: regular Heart sounds: normal: S1, S2 Abnormal Heart Sounds: Absent: systolic murmur, diastolic murmur - Gastrointestinal General gastrointestinal: Present: normal bowel sounds, soft. Absent: distended, organomegaly, tenderness - Genitourinary Genitourinary Comment(s): deferred - Integumentary Integumentary: Present: normal turgor. Absent: jaundiced, rash, ulcer - Neurologic Neurologic: Present: CNII-XII intact. Absent: focal deficits - Musculoskeletal Musculoskeletal: Present: gait normal, strength equal bilaterally - Psychiatric Psychiatric: Present: A&O x's 3, appropriate affect, intact judgment & insight - Labs CBC & Chem 7: 12/09/18 09:35 12/09/18 09:35 Labs: Abnormal Lab Results - Last 24 Hours (Table) 12/09/18 12/09/18 12/09/18 Range/Units 12:43 16:39 23:48 POC Glucose (mg/dL) 162 H 268 H 150 H (75-99) mg/dL 12/10/18 Range/Units 07:12 POC Glucose (mg/dL) 135 H (75-99) mg/dL Assessment and Plan Assessment: -Acute on chronic hypercapnic respiratory failure secondary to COPD exacerbation patient will be continued on inhaled steroids systemic steroids inhalational treatments. Counseling regarding smoking cessation is provided. -Hypertension -Obesity sleep apnea continue with CPAP machine -Sinus tachycardia: Secondary to hypoxemia expected to improve with improvement in hypoxemia. Due to prophylaxis with subcutaneous heparin and GI prophylaxis with Pepcid Time with Patient: Greater than 30
[2018-12-10 20:25] LABS: Glucose,Whole Blood 187 mg/dL (75-99)
[2018-12-10 21:28] LABS: Appearance,BF Hazy; Color,BF Pink; Nucleated Cells, Body Fluid 67 /uL; RBC, Body Fluid 5425 /uL
[2018-12-10 22:08] LABS: Mononuclear WBC,Body Fluid 15 %; Polynuclear WBC,Body Fluid 85 %; Total Cells Counted,Body Fluid 100
[2018-12-11] MEDS: HEPARIN SODIUM,PORCINE 5,000 UNIT/ML 1 ML VIAL SQ SCH ×3 (00:31→17:50)
[2018-12-11] MEDS: methylPREDNISolone SOD SUCCI 125 MG/2 ML VIAL IV SCH ×4 (00:31→17:50)
[2018-12-11] MEDS: IPRATROPIUM-ALBUTEROL 3 ML NEB INHALATION PRN (03:29)
[2018-12-11 07:10] LABS: Glucose,Whole Blood 130 mg/dL (75-99)
[2018-12-11] MEDS: INSULIN ASPART (NovoLOG) 100 UNIT/ML VIAL SQ SCH ×4 (07:51→20:31)
[2018-12-11] MEDS: LACTATED RINGERS 1,000 ML IV SCH (09:18)
[2018-12-11] MEDS: ALPRAZolam 0.5 MG TAB PO PRN ×2 (09:18→17:51)
[2018-12-11] MEDS: FAMOTIDINE 20 MG TAB PO SCH ×2 (09:19→20:31)
[2018-12-11] MEDS: AZITHROMYCIN 500 MG TAB PO SCH (09:19)
[2018-12-11] MEDS: cloNIDine HCL 0.1 MG TAB PO SCH ×3 (09:19→20:30)
[2018-12-11] MEDS: BUDESONIDE 1 MG/2 ML NEBU INHALATION SCH ×2 (09:30→20:51)
[2018-12-11] MEDS: FORMOTEROL FUMARATE 20 MCG/2 ML NEBU INHALATION SCH ×2 (09:30→20:51)
[2018-12-11] MEDS: IPRATROPIUM-ALBUTEROL 3 ML NEB INHALATION SCH ×4 (09:30→20:51)
[2018-12-11 12:32] LABS: Glucose,Whole Blood 260 mg/dL (75-99)
--- NOTE | 2018-12-11 15:29 | PN ---
PROGRESS NOTE DATE OF SERVICE: December 11, 2018 This is a 58-year-old gentleman with a history of severe oxygen-dependent COPD. He was admitted with that diagnosis and had an acute exacerbation of his COPD complicated by purulent tracheobronchitis. He went underwent bronchoscopy yesterday. Thick secretions were removed. Specimens were sent to the laboratory for analysis. He has acute on chronic hypoxemic respiratory failure as well as acute on chronic hypercapnic respiratory failure. The patient has a previous history of prolonged mechanical ventilation, failure to wean, status post tracheostomy and eventual successful weaning at [facility]. The patient's FEV1 is less than 30% of predicted. The patient is still smoking cigarettes from time to time. He does suffer from chronic anxiety. He has been counseled about the importance of smoking cessation. Finally, he does have a history of obstructive sleep apnea syndrome. Since his bronchoscopy yesterday, he is feeling much better. Less short of breath. He is using the BiPAP from [id number]. It allows him to breathe easier. PHYSICAL EXAMINATION: VITAL SIGNS: Current vital signs are reviewed. Temperature is 98.4. Heart rate 90, respiratory rate 17, blood pressure 135/66, mean 89 and saturations are 98% on the BiPAP. GENERAL: Appears no acute distress. No respiratory distress. No audible wheezing. HEENT examination is grossly unremarkable. BiPAP mask in place. NECK: Supple. Full range of motion. No adenopathy. Neck veins are flat. He has a well-healed tracheostomy scar in the midline. CARDIOVASCULAR examination reveals regular rhythm rate. Heart rate about 90 beats per minute. S1, S2 normal. No S3, S4, or murmur. Heart sounds are distant. LUNGS: Reveal diffuse inspiratory and expiratory rhonchi. Breath sounds are diminished. There is prolongation. No crackles. ABDOMEN: Soft. Bowel sounds are heard. EXTREMITIES are intact. No cyanosis, clubbing, or edema. SKIN: Without rash. NEUROLOGIC: Examination is brief but nonfocal. LABS: Reviewed. No new labs from today. The bronch washes are still pending. There was rhino virus detected in the bronch washings by PCR. Microbiology thus far is all negative. No recent chest x-ray to report. Medications are reviewed. ASSESSMENT: 1. Acute exacerbation of severe stage IV chronic obstructive pulmonary disease. This is complicated by purulent tracheobronchitis, without radha pneumonia. 2. Acute on chronic hypoxemic and hypercapnic respiratory failure, all secondary to chronic obstructive pulmonary disease. 3. Previous hospitalization in March 2018, requiring prolonged mechanical ventilation, failure to wean from mechanical ventilation, subsequent tracheostomy and PEG tube placement and transferred to [facility]. 4. Chronic and ongoing tobacco dependence. 5. Chronic anxiety. 6. History of sleep apnea syndrome, maintained on CPAP at home at a pressure of 9. PLAN: Currently, the patient is improved. He did have a bronchoscopy on December 10. No additional recommendations are made. Bronch results are pending. He is on good antibiotics, steroids and breathing treatments. We will continue to follow. Prognosis is guarded. He has been counseled over and over about the importance of smoking cessation. MMODL / IJN: [id number] /
[2018-12-11 17:25] LABS: Glucose,Whole Blood 149 mg/dL (75-99)
[2018-12-11 20:27] LABS: Glucose,Whole Blood 166 mg/dL (75-99)
[2018-12-12] MEDS: ALPRAZolam 0.5 MG TAB PO PRN ×4 (00:59→23:55)
[2018-12-12] MEDS: HEPARIN SODIUM,PORCINE 5,000 UNIT/ML 1 ML VIAL SQ SCH ×4 (01:01→23:56)
[2018-12-12] MEDS: methylPREDNISolone SOD SUCCI 125 MG/2 ML VIAL IV SCH ×5 (01:01→23:56)
[2018-12-12] MEDS: IPRATROPIUM-ALBUTEROL 3 ML NEB INHALATION PRN ×3 (01:03→23:48)
[2018-12-12 07:22] LABS: Glucose,Whole Blood 133 mg/dL (75-99)
[2018-12-12] MEDS: INSULIN ASPART (NovoLOG) 100 UNIT/ML VIAL SQ SCH ×4 (07:34→21:56)
[2018-12-12] MEDS: FORMOTEROL FUMARATE 20 MCG/2 ML NEBU INHALATION SCH ×2 (08:27→20:06)
[2018-12-12] MEDS: IPRATROPIUM-ALBUTEROL 3 ML NEB INHALATION SCH ×4 (08:27→20:06)
[2018-12-12] MEDS: BUDESONIDE 1 MG/2 ML NEBU INHALATION SCH ×2 (08:27→20:06)
[2018-12-12] MEDS: FAMOTIDINE 20 MG TAB PO SCH ×2 (09:20→21:56)
[2018-12-12] MEDS: cloNIDine HCL 0.1 MG TAB PO SCH ×3 (09:20→21:56)
[2018-12-12] MEDS: AZITHROMYCIN 500 MG TAB PO SCH (09:20)
--- NOTE | 2018-12-12 12:00 | PN ---
PROGRESS NOTE DATE OF SERVICE: December 12, 2018 This is a 58-year-old gentleman with a history of severe oxygen-dependent COPD. He was admitted with a diagnosis of acute exacerbation of COPD complicated by purulent tracheobronchitis. He underwent bronchoscopy on Thursday. Currently, results are mostly pending. He did have thick copious secretions in the airways. Currently, he is on BiPAP. His BiPAP settings are 12 and 5 and 40%. He prefers that currently. He states it really helps him with his breathing. His primary issues are cough, chest congestion and phlegm production. He feels like when he exerts himself, he would become profoundly short of breath. Unfortunately, the patient continues to smoke cigarettes despite our counseling. PHYSICAL EXAMINATION: VITAL SIGNS: Current vital signs are reviewed. Temperature 97.6. Heart rate 88, respiratory rate 16, blood pressure 133/67, mean 89 and 5 L saturation is 100% and saturations on the BiPAP are also 100%. Appears in no acute distress. Mildly tachypneic and dyspneic. No conversational dyspnea. No use of accessory muscles. HEENT examination is grossly unremarkable. BiPAP mask in place. NECK: Supple. Full range of motion. No adenopathy. Neck veins are flat. CARDIOVASCULAR examination reveals regular rhythm and rate. Heart rate in mid 80s. S1, S2 normal. No murmur. LUNGS: Reveal diminished breath sounds throughout. There are some inspiratory and expiratory rhonchi. No wheezes. No crackles. Breath sounds are equal, but severely diminished throughout. ABDOMEN: Soft. Bowel sounds are heard. EXTREMITIES are intact. No cyanosis, clubbing or edema. SKIN: Without rash. NEUROLOGIC: Examination is brief but nonfocal. LABS: Currently pending or negative for today. The bronch wash shows evidence of rhino virus by PCR in the washings. The rest of the sampling is currently negative. Microbiology is currently negative. The chest x-ray was done on the . Medications are reviewed. They are all appropriate. ASSESSMENT: 1. Acute exacerbation of severe stage IV chronic obstructive pulmonary disease. The patient's chronic obstructive pulmonary disease exacerbation complicated by purulent tracheobronchitis, without radha pneumonia, and possibly triggered by rhino virus infection. 2. Acute on chronic hypoxemic and hypercapnic respiratory failure, all secondary to chronic obstructive pulmonary disease. 3. Previous hospitalization in March 2018, requiring prolonged mechanical ventilation, failure to wean from mechanical ventilation. Subsequent tracheostomy and PEG tube placement and transfer to [facility]. 4. Chronic and ongoing tobacco dependence, despite counseling. 5. Chronic anxiety. 6. History of chronic obstructive sleep apnea syndrome, maintained on CPAP at home. PLAN dated 12/12/2018 Currently, the patient seems to be slowly improving. His medications are appropriate. We will get an x-ray in the morning. No additional recommendations are made. We counseled him about the importance of smoking cessation once and for all. We will await the additional results from the bronchoscopy. MMODL / IJN: [id number] / MTDD
[2018-12-12 12:32] LABS: Glucose,Whole Blood 162 mg/dL (75-99)
--- NOTE | 2018-12-12 13:49 | P.PN ---
Subjective Progress Note Date: 12/11/18 Principal diagnosis: Acute exacerbation of oxygen dependent chronic obstructive pulmonary disease 12/10/2018 in follow-up on the regular medical floor. He is currently awake and alert in no acute distress. Breathing a bit easier today as compared to . Not quite back to his baseline. Still with a loose nonproductive cough. No chills or night sweats. He is maintaining O2 saturation in the 90s on 5 L/m per nasal cannula. He remains on bronchodilators, IV solu Medrol, antibiotics. The plan is for bronchoscopy with BAL today. 12/11/2018 Patient is seen and evaluated in room at bedside; patient is status post bronchoscopy yesterday at which time thick secretions were removed and specimens were sent to lab for analysis; patient is on BiPAP for acute on chronic hypoxic respiratory failure with hypercapnia; patient does report improvement in symptoms since bronchoscopy; pulmonary is following and recommending to continue current treatment; patient continues to smoke Objective - Vital Signs Vital signs: Vital Signs Temp 98.4 F 12/11/18 09:21 Pulse 92 12/11/18 09:52 Resp 17 12/11/18 09:21 BP 135/66 12/11/18 09:21 Pulse Ox 98 12/11/18 01:36 Intake & Output 12/10/18 12/11/18 12/11/18 18:59 06:59 18:59 Other: Voiding Method Toilet Toilet # Voids 2 1 - Exam - Constitutional General appearance: Present: average body habitus, cooperative, no acute distress - EENT Eyes: Present: anicteric sclerae, EOMI, PERRLA, normal appearance ENT: Present: hearing grossly normal, normal oropharynx Ears: bilateral: normal - Neck Neck: Present: normal ROM. Absent: lymphadenopathy, rigidity, thyromegaly Carotids: negative: bruit present Thyroid: bilateral: normal size, negative: enlarged, nodule - Respiratory Respiratory: bilateral: CTA, negative: rales, rhonchi, wheezing - Cardiovascular Rhythm: regular Heart sounds: normal: S1, S2 Abnormal Heart Sounds: Absent: systolic murmur, diastolic murmur - Gastrointestinal General gastrointestinal: Present: normal bowel sounds, soft. Absent: distended, organomegaly, tenderness - Genitourinary Genitourinary Comment(s): deferred - Integumentary Integumentary: Present: normal turgor. Absent: jaundiced, rash, ulcer - Neurologic Neurologic: Present: CNII-XII intact. Absent: focal deficits - Musculoskeletal Musculoskeletal: Present: gait normal, strength equal bilaterally - Psychiatric Psychiatric: Present: A&O x's 3, appropriate affect, intact judgment & insight - Labs CBC & Chem 7: 12/09/18 09:35 12/09/18 09:35 Labs: Abnormal Lab Results - Last 24 Hours (Table) 12/10/18 12/10/18 12/10/18 Range/Units 11:41 12:00 16:40 POC Glucose (mg/dL) 136 H 219 H (75-99) mg/dL Viral Test See Below H 12/10/18 12/11/18 Range/Units 20:24 06:58 POC Glucose (mg/dL) 187 H 130 H (75-99) mg/dL Viral Test Microbiology - Last 24 Hours (Table) 12/10/18 12:00 Acid Fast Bacilli Smear - Final Bronchial Washings - Right Acid Fast Bacilli Culture - Preliminary 12/10/18 12:00 Gram Stain - Preliminary Bronchoalviolar Lavage - Right Bronchial Washings Culture - Preliminary 12/10/18 12:00 Fungal Culture - Preliminary Bronchial Washings - Right Assessment and Plan Assessment: -Acute on chronic hypercapnic respiratory failure secondary to COPD exacerbation patient will be continued on inhaled steroids systemic steroids inhalational treatments. Counseling regarding smoking cessation is provided. -Hypertension -Obesity sleep apnea continue with CPAP machine -Sinus tachycardia: Secondary to hypoxemia expected to improve with improvement in hypoxemia. Due to prophylaxis with subcutaneous heparin and GI prophylaxis with Pepcid Time with Patient: Greater than 30
--- NOTE | 2018-12-12 15:27 | P.PN ---
Subjective Progress Note Date: 12/12/18 Principal diagnosis: Acute exacerbation of oxygen dependent chronic obstructive pulmonary disease 12/10/2018 in follow-up on the regular medical floor. He is currently awake and alert in no acute distress. Breathing a bit easier today as compared to . Not quite back to his baseline. Still with a loose nonproductive cough. No chills or night sweats. He is maintaining O2 saturation in the 90s on 5 L/m per nasal cannula. He remains on bronchodilators, IV solu Medrol, antibiotics. The plan is for bronchoscopy with BAL today. 12/11/2018 Patient is seen and evaluated in room at bedside; patient is status post bronchoscopy yesterday at which time thick secretions were removed and specimens were sent to lab for analysis; patient is on BiPAP for acute on chronic hypoxic respiratory failure with hypercapnia; patient does report improvement in symptoms since bronchoscopy; pulmonary is following and recommending to continue current treatment; patient continues to smoke 12/12/2018 Patient is seen and evaluated in room at bedside; patient reports that he is able to relax and breathe better with BiPAP; pulmonary is on board and recommending gradual wean; patient is currently at BiPAP settings of 125 mmHg with FiO2 of 40% Vital signs temperature of 97.6, pulse 89, respirations 16 and blood pressure 133/67 with SpO2 of 95% on 5 L Patient continuing to make slow progress; pulmonary is recommending to continue all current medications; patient will have a repeat chest x-ray in the morning after which further recommendations will be made; bronchoscopy results are still pending; counseling done for need of smoking cessation Objective - Vital Signs Vital signs: Vital Signs Temp 97.6 F 12/12/18 07:00 Pulse 90 12/12/18 12:00 Resp 16 12/12/18 08:05 BP 133/67 12/12/18 07:00 Pulse Ox 100 12/12/18 08:27 Intake & Output 12/11/18 12/12/18 12/12/18 19:59 06:59 18:59 Other: Voiding Method Toilet Urinal # Voids 1 - Exam - Constitutional General appearance: Present: average body habitus, cooperative, no acute distress - EENT Eyes: Present: anicteric sclerae, EOMI, PERRLA, normal appearance ENT: Present: hearing grossly normal, normal oropharynx Ears: bilateral: normal - Neck Neck: Present: normal ROM. Absent: lymphadenopathy, rigidity, thyromegaly Carotids: negative: bruit present Thyroid: bilateral: normal size, negative: enlarged, nodule - Respiratory Respiratory: bilateral: CTA, negative: rales, rhonchi, wheezing - Cardiovascular Rhythm: regular Heart sounds: normal: S1, S2 Abnormal Heart Sounds: Absent: systolic murmur, diastolic murmur - Gastrointestinal General gastrointestinal: Present: normal bowel sounds, soft. Absent: distended, organomegaly, tenderness - Genitourinary Genitourinary Comment(s): deferred - Integumentary Integumentary: Present: normal turgor. Absent: jaundiced, rash, ulcer - Neurologic Neurologic: Present: CNII-XII intact. Absent: focal deficits - Musculoskeletal Musculoskeletal: Present: gait normal, strength equal bilaterally - Psychiatric Psychiatric: Present: A&O x's 3, appropriate affect, intact judgment & insight - Labs CBC & Chem 7: 12/09/18 09:35 12/09/18 09:35 Labs: Abnormal Lab Results - Last 24 Hours (Table) 12/11/18 12/11/18 12/12/18 Range/Units 17:13 20:16 07:11 POC Glucose (mg/dL) 149 H 166 H 133 H (75-99) mg/dL 12/12/18 Range/Units 12:19 POC Glucose (mg/dL) 162 H (75-99) mg/dL Microbiology - Last 24 Hours (Table) 12/10/18 12:00 Gram Stain - Final Bronchoalviolar Lavage - Right Bronchial Washings Culture - Final Assessment and Plan Assessment: -Acute on chronic hypercapnic respiratory failure secondary to COPD exacerbation patient will be continued on inhaled steroids systemic steroids inhalational treatments. Counseling regarding smoking cessation is provided. -Hypertension -Obesity sleep apnea continue with CPAP machine -Sinus tachycardia: Secondary to hypoxemia expected to improve with improvement in hypoxemia. Due to prophylaxis with subcutaneous heparin and GI prophylaxis with Pepcid Time with Patient: Greater than 30
[2018-12-12 17:34] LABS: Glucose,Whole Blood 213 mg/dL (75-99)
[2018-12-12 20:40] LABS: Glucose,Whole Blood 170 mg/dL (75-99)
[2018-12-12] MEDS: LACTATED RINGERS 1,000 ML IV SCH (22:03)
[2018-12-13] MEDS: IPRATROPIUM-ALBUTEROL 3 ML NEB INHALATION PRN (04:12)
[2018-12-13] MEDS: methylPREDNISolone SOD SUCCI 125 MG/2 ML VIAL IV SCH ×3 (05:22→17:51)
[2018-12-13] MEDS: ALPRAZolam 0.5 MG TAB PO PRN ×3 (06:09→20:57)
[2018-12-13 07:12] LABS: Glucose,Whole Blood 194 mg/dL (75-99)
[2018-12-13] MEDS: IPRATROPIUM-ALBUTEROL 3 ML NEB INHALATION SCH ×4 (07:15→20:12)
[2018-12-13] MEDS: FORMOTEROL FUMARATE 20 MCG/2 ML NEBU INHALATION SCH ×2 (07:15→20:12)
[2018-12-13] MEDS: BUDESONIDE 1 MG/2 ML NEBU INHALATION SCH ×2 (07:15→20:13)
[2018-12-13 07:23] LABS: Basophils % (A) 0 %; Eosinophils # (A) 0.1 k/uL (0-0.7); Eosinophils % (A) 1 %; HCT 37.9 % (39.0-53.0); HGB 12.6 gm/dL (13.0-17.5); Lymphocytes # (A) 0.2 k/uL (1.0-4.8); Lymphocytes % (A) 2 %; MCH 31.4 pg (25.0-35.0); MCHC 33.2 g/dL (31.0-37.0); MCV 94.5 fL (80.0-100.0); Mean Platelet Volume 6.4; Monocytes # (A) 0.3 k/uL (0-1.0); Monocytes % (A) 3 %; Neutrophils # (A) 9.9 k/uL (1.3-7.7); Neutrophils % (A) 93 %; Platelet Count 213 k/uL (150-450); RBC 4.01 m/uL (4.30-5.90); RDW 12.4 % (11.5-15.5); WBC 10.6 k/uL (3.8-10.6)
[2018-12-13 07:41] LABS: African American GFR (CKD) >90 (>60 ml/min/1.73 sqM); Anion Gap 2 mmol/L; Blood Urea Nitrogen 21 mg/dL (9-20); Calcium 8.4 mg/dL (8.4-10.2); Carbon Dioxide 37 mmol/L (22-30); Chloride 97 mmol/L (98-107); Glucose 191 mg/dL (74-99); Potassium 4.5 mmol/L (3.5-5.1); Sodium 136 mmol/L (137-145)
[2018-12-13] MEDS: INSULIN ASPART (NovoLOG) 100 UNIT/ML VIAL SQ SCH ×4 (08:00→20:56)
[2018-12-13] MEDS: HEPARIN SODIUM,PORCINE 5,000 UNIT/ML 1 ML VIAL SQ SCH ×2 (08:01→16:44)
[2018-12-13] MEDS: FAMOTIDINE 20 MG TAB PO SCH ×2 (08:04→20:57)
[2018-12-13] MEDS: cloNIDine HCL 0.1 MG TAB PO SCH ×3 (08:04→20:57)
--- NOTE | 2018-12-13 09:11 | P.PN ---
Subjective This is a pleasant 58 years old male with past medical history of COPD, sleep apnea on CPAP, chronic respiratory failure on home oxygen at 3 L via nasal cannula, kidney stones and osteopenia. Presents because of dyspnea and coughing found to have acute COPD exacerbation. This morning he still short of breath while on CPAP/BiPAP machine, patient got dyspneic easily even before he finishes his symptoms. Patient still have some cough with white phlegm. On exam he's has decreased air entry on both sides. He is been followed closely by pulmonary service and currently he is on Solu-Medrol 60 mg months oral Zithromax. Objective - Vital Signs Vital signs: Vital Signs Temp 97.4 F L 12/13/18 07:00 Pulse 84 12/13/18 07:35 Resp 18 12/13/18 07:00 BP 165/90 12/13/18 07:00 Pulse Ox 94 L 12/13/18 07:00 Intake & Output 12/12/18 12/13/18 12/13/18 18:59 06:59 18:59 Intake Total 350 Balance 350 Intake: Oral 350 Other: Voiding Method Toilet Toilet Toilet Urinal Urinal Urinal # Voids 3 1 - Exam GENERAL: The patient is alert and oriented x3, not in any acute distress. Well developed, well nourished. HEENT: Pupils are round and equally reacting to light. EOMI. No scleral icterus. No conjunctival pallor. Normocephalic, atraumatic. No pharyngeal erythema. No thyromegaly. CARDIOVASCULAR: S1 and S2 present. No murmurs, rubs, or gallops. -PULMONARY: Decreased air entry on both sides with scattered expiratory wheezing ABDOMEN: Soft, nontender, nondistended, normoactive bowel sounds. No palpable organomegaly. MUSCULOSKELETAL: No joint swelling or deformity. EXTREMITIES: No cyanosis, clubbing, or pedal edema. NEUROLOGICAL: Gross neurological examination did not reveal any focal deficits. SKIN: No rashes. no petechiae. - Labs CBC & Chem 7: 12/13/18 07:00 12/13/18 07:00 Labs: Abnormal Lab Results - Last 24 Hours (Table) 12/12/18 12/12/18 12/12/18 Range/Units 12:19 17:22 20:38 RBC (4.30-5.90) m/uL Hgb (13.0-17.5) gm/dL Hct (39.0-53.0) % Neutrophils # (1.3-7.7) k/uL Lymphocytes # (1.0-4.8) k/uL Sodium (137-145) mmol/L Chloride (98-107) mmol/L Carbon Dioxide (22-30) mmol/L BUN (9-20) mg/dL Glucose (74-99) mg/dL POC Glucose (mg/dL) 162 H 213 H 170 H (75-99) mg/dL 12/13/18 12/13/18 12/13/18 Range/Units 06:54 07:00 07:00 RBC 4.01 L (4.30-5.90) m/uL Hgb 12.6 L (13.0-17.5) gm/dL Hct 37.9 L (39.0-53.0) % Neutrophils # 9.9 H (1.3-7.7) k/uL Lymphocytes # 0.2 L (1.0-4.8) k/uL Sodium 136 L (137-145) mmol/L Chloride 97 L (98-107) mmol/L Carbon Dioxide 37 H (22-30) mmol/L BUN 21 H (9-20) mg/dL Glucose 191 H (74-99) mg/dL POC Glucose (mg/dL) 194 H (75-99) mg/dL Microbiology - Last 24 Hours (Table) 12/10/18 12:00 Gram Stain - Final Bronchoalviolar Lavage - Right Bronchial Washings Culture - Final Assessment and Plan Assessment: Acute COPD exacerbation Acute on chronic hypoxic respiratory failure Acute tracheobronchitis Sleep apnea on CPAP/BiPAP hypertension Obesity Plan: This is a pleasant 58 years old male who presents with acute COPD. Continue with steroids, continue with oral antibiotics. Follow-up pulmonary r ecommendation Labs and medication were reviewed.. Continue same treatment. Continue with symptomatic treatment. Resume home medication. Monitor lytes and vitals. DVT and GI prophylaxis. Further recommendations of the clinical course of the patient DVT prophylaxis: Subcutaneous heparin GI Prophylaxis: Pepcid
--- NOTE | 2018-12-13 10:20 | XR ---
EXAMINATION TYPE: XR chest 1V portable DATE OF EXAM: 12/13/2018 COMPARISON: 12/09/2018 HISTORY: COPD TECHNIQUE: Single frontal view of the chest is obtained. FINDINGS: There is no focal air space opacity, pleural effusion, or pneumothorax seen. The cardiac silhouette size is within normal limits. The osseous structures are intact. Hyperinflation suggests COPD. No overt failure. IMPRESSION: Correlate for COPD.
[2018-12-13] MEDS: AZITHROMYCIN 500 MG TAB PO SCH (10:34)
[2018-12-13 11:39] LABS: Glucose,Whole Blood 207 mg/dL (75-99)
[2018-12-13 15:26] VITALS: RESP 16
--- NOTE | 2018-12-13 16:13 | P.PN ---
Subjective Progress Note Date: 12/13/18 On today's evaluation of 12/13/2018 the patient is still struggling with her breathing. He is excessively anxious. He shortness of breath. He seems to be BiPAP dependent. Note that the patient has advanced COPD with an FEV1 of 30% of predicted and the patient also has obstructive sleep apnea maintained on CPAP therapy regarding an AHI of 23 consistent with moderately severe disease with a CPAP pressure of 9 cm of water and outpatient basis. Currently the patient is on a BiPAP at a pressure of 12/5 cm of water. He insists on wearing his oxygen at 5 L about 2 by nasal cannula. The patient is awake and alert. The patient is following commands. No signs of any CO2 narcosis. On the BiPAP machine, he has no major air leaks in the tidal volume generated is around 500 mL. Denies having any chest pain. He has a congested cough. On examination is extremely diminished and he remains fairly bronchospastic and wheezy. Note that the patient has been maintained on a combination of Dulera, theophylline and 5 mg of prednisone outpatient basis. The patient remains on IV Solu Medrol for now. He is also on bronchodilators [id number]. He is requiring Xanax 3 times a day regarding his chronic anxiety. Suggested the addition of Zoloft. No significant edema lower extremities. The bronchoscopy was done and the bronchioloalveolar lavage showed no evidence of any microbial growth in this patient. White cell count is at 10.6. He is afebrile. Objective - Vital Signs Vital signs: Vital Signs Temp 98 F 12/13/18 15:00 Pulse 90 12/13/18 15:58 Resp 16 12/13/18 15:00 BP 128/71 12/13/18 15:00 Pulse Ox 91 L 12/13/18 15:00 Intake & Output 12/12/18 12/13/18 12/13/18 18:59 06:59 18:59 Intake Total 350 Balance 350 Intake: Oral 350 Other: Voiding Method Toilet Toilet Toilet Urinal Urinal Urinal # Voids 3 1 - Exam GENERAL EXAM: Alert, pleasant 58-year-old gentleman, on 5 L nasal cannula in addition to a BiPAP with a full facemask and a pressure of 12/5 cm of water., comfortable in no apparent distress. He is obviously anxious. HEAD: Normocephalic. EYES: Normal reaction of pupils, equal size. NOSE: Clear with pink turbinates. THROAT: No erythema or exudates. NECK: Evidence of previous tracheotomy. No masses, no JVD. CHEST: No chest wall deformity. LUNGS: Equal air entry with bilateral end expiratory wheeze, diminished. The breath sounds are markedly diminished bilaterally. CVS: S1 and S2 normal with no audible murmur, regular rhythm. ABDOMEN: No hepatosplenomegaly, normal bowel sounds, no guarding or rigidity. SPINE: No scoliosis or deformity SKIN: No rashes CENTRAL NERVOUS SYSTEM: No focal deficits, tone is normal in all 4 extremities. EXTREMITIES: There is no peripheral edema. No clubbing, no cyanosis. Peripheral pulses are intact. - Labs CBC & Chem 7: 12/13/18 07:00 12/13/18 07:00 Labs: Abnormal Lab Results - Last 24 Hours (Table) 12/12/18 12/12/18 12/13/18 Range/Units 17:22 20:38 06:54 RBC (4.30-5.90) m/uL Hgb (13.0-17.5) gm/dL Hct (39.0-53.0) % Neutrophils # (1.3-7.7) k/uL Lymphocytes # (1.0-4.8) k/uL Sodium (137-145) mmol/L Chloride (98-107) mmol/L Carbon Dioxide (22-30) mmol/L BUN (9-20) mg/dL Glucose (74-99) mg/dL POC Glucose (mg/dL) 213 H 170 H 194 H (75-99) mg/dL 12/13/18 12/13/18 12/13/18 Range/Units 07:00 07:00 11:20 RBC 4.01 L (4.30-5.90) m/uL Hgb 12.6 L (13.0-17.5) gm/dL Hct 37.9 L (39.0-53.0) % Neutrophils # 9.9 H (1.3-7.7) k/uL Lymphocytes # 0.2 L (1.0-4.8) k/uL Sodium 136 L (137-145) mmol/L Chloride 97 L (98-107) mmol/L Carbon Dioxide 37 H (22-30) mmol/L BUN 21 H (9-20) mg/dL Glucose 191 H (74-99) mg/dL POC Glucose (mg/dL) 207 H (75-99) mg/dL Microbiology - Last 24 Hours (Table) 12/10/18 12:00 Fungal Culture - Preliminary Bronchial Washings - Right Betzaida albicans 12/10/18 12:00 Gram Stain - Final Bronchoalviolar Lavage - Right Bronchial Washings Culture - Final Assessment and Plan Plan: 1 Acute exacerbation of severe oxygen dependent chronic obstructive pulmonary disease complicated by purulent tracheobronchitis. The patient currently is on BiPAP at a pressure of 12/5 cm of water. The patient underwent a bronchoscopy few days back along with the bronchioloalveolar lavage that showed no evidence of any microbial growth. He remains quite anxious in addition to some degree of shortness of breath. Anxiety is also contributing to his chronic dyspnea. 2 Acute on top of chronic hypoxic respiratory failure, secondary to above 3 Acute on chronic hypercapnic respiratory failure secondary to COPD 4 Advanced COPD at baseline with FEV1 of less than 30% of predicted, consistent with severe COPD 5 Previous hospitalization here in March 2018 requiring prolonged mechanical ventilator with subsequent trach E and PEG tube placement and transfer to [facility]. Discharge in April 2018. The cannulated. 6 Chronic and ongoing tobacco dependence 7 Chronic anxiety 8 Obstructive sleep apnea maintained on CPAP at a pressure of 9 cm of water on outpatient basis Plan Continue the BiPAP therapy for the same setting. Continue bronchodilators. Continue IV Solu-Medrol. Add Zoloft 100 mg by mouth daily. Continue with Xanax 0.5 mg 3 times a day [id number]. DVT and GI prophylaxis. Chest x-ray from today is consistent with COPD. No evidence of any acute pneumonia. There is hyperinflation. We'll continue to follow. DVT and GI prophylaxis. Long- term prognosis poor despite his young age due to advanced COPD. We'll continue to follow.
[2018-12-13] MEDS: SERTRALINE 100 MG TAB PO SCH (16:44)
[2018-12-13 17:02] LABS: Glucose,Whole Blood 241 mg/dL (75-99)
[2018-12-13 20:25] LABS: Glucose,Whole Blood 190 mg/dL (75-99)
[2018-12-13] MEDS: LACTATED RINGERS 1,000 ML IV SCH (20:58)
[2018-12-14] MEDS: methylPREDNISolone SOD SUCCI 125 MG/2 ML VIAL IV SCH ×5 (00:58→23:18)
[2018-12-14] MEDS: HEPARIN SODIUM,PORCINE 5,000 UNIT/ML 1 ML VIAL SQ SCH ×4 (00:58→23:18)
[2018-12-14] MEDS: ALPRAZolam 0.5 MG TAB PO PRN ×2 (04:04→20:49)
[2018-12-14] MEDS: IPRATROPIUM-ALBUTEROL 3 ML NEB INHALATION SCH ×4 (07:13→19:48)
[2018-12-14] MEDS: BUDESONIDE 1 MG/2 ML NEBU INHALATION SCH ×2 (07:13→19:48)
[2018-12-14] MEDS: FORMOTEROL FUMARATE 20 MCG/2 ML NEBU INHALATION SCH ×2 (07:13→19:48)
[2018-12-14 07:41] LABS: Glucose,Whole Blood 251 mg/dL (75-99)
[2018-12-14] MEDS: SERTRALINE 100 MG TAB PO SCH (07:58)
[2018-12-14] MEDS: cloNIDine HCL 0.1 MG TAB PO SCH ×3 (07:58→20:50)
[2018-12-14] MEDS: FAMOTIDINE 20 MG TAB PO SCH ×2 (07:58→20:49)
[2018-12-14] MEDS: AZITHROMYCIN 500 MG TAB PO SCH (07:58)
[2018-12-14] MEDS: INSULIN ASPART (NovoLOG) 100 UNIT/ML VIAL SQ SCH ×4 (07:59→20:50)
[2018-12-14 12:12] LABS: Glucose,Whole Blood 137 mg/dL (75-99)
--- NOTE | 2018-12-14 13:36 | P.PN ---
Subjective This is a pleasant 58 years old male with past medical history of COPD, sleep apnea on CPAP, chronic respiratory failure on home oxygen at 3 L via nasal cannula, kidney stones and osteopenia. Presents because of dyspnea and coughing found to have acute COPD exacerbation. This morning he still short of breath while on CPAP/BiPAP machine, patient got dyspneic easily even before he finishes his symptoms. Patient still have some cough with white phlegm. On exam he's has decreased air entry on both sides. He is been followed closely by pulmonary service and currently he is on Solu-Medrol 60 mg months oral Zithromax. 12/14/2018 Patient is awake and alert, history of significantly distended and using the BiPAP since morning, if he takes the mask of the pubic short of breath. Vitas looks stable other than that. Sugar controlled, from yesterday showing stable creatinine 0.7. Sputum fungal culture came back positive for Betzaida albicans. We'll start him on fluconazole and changed Zithromax to doxycycline. Patient continue on Solu-Medrol 60 mg, pulmonary team are following the patient closely. Objective - Vital Signs Vital signs: Vital Signs Temp 98.7 F 12/14/18 07:00 Pulse 82 12/14/18 11:24 Resp 16 12/14/18 08:00 BP 134/79 12/14/18 07:00 Pulse Ox 100 12/14/18 07:00 Intake & Output 12/13/18 12/14/18 12/14/18 18:59 06:59 18:59 Other: Voiding Method Toilet Toilet Toilet Urinal Urinal Urinal # Voids 2 1 - Exam GENERAL: The patient is alert and oriented x3, not in any acute distress. Well developed, well nourished. HEENT: Pupils are round and equally reacting to light. EOMI. No scleral icterus. No conjunctival pallor. Normocephalic, atraumatic. No pharyngeal erythema. No t hyromegaly. CARDIOVASCULAR: S1 and S2 present. No murmurs, rubs, or gallops. -PULMONARY: Decreased air entry on both sides with scattered expiratory wheezing ABDOMEN: Soft, nontender, nondistended, normoactive bowel sounds. No palpable organomegaly. MUSCULOSKELETAL: No joint swelling or deformity. EXTREMITIES: No cyanosis, clubbing, or pedal edema. NEUROLOGICAL: Gross neurological examination did not reveal any focal deficits. SKIN: No rashes. no petechiae. - Labs CBC & Chem 7: 12/13/18 07:00 12/13/18 07:00 Labs: Abnormal Lab Results - Last 24 Hours (Table) 12/13/18 12/13/18 12/14/18 Range/Units 16:51 20:13 07:13 POC Glucose (mg/dL) 241 H 190 H 251 H (75-99) mg/dL 12/14/18 Range/Units 12:00 POC Glucose (mg/dL) 137 H (75-99) mg/dL Microbiology - Last 24 Hours (Table) 12/10/18 12:00 Fungal Culture - Preliminary Bronchial Washings - Right Betzaida albicans Assessment and Plan Assessment: Acute COPD exacerbation Acute on chronic hypoxic respiratory failure Acute tracheobronchitis, with culture positive for Betzaida. Sleep apnea on CPAP/BiPAP hypertension Obesity Plan: This is a pleasant 58 years old male who presents with acute COPD. patient is currently BiPAP dependent. Continue with steroids, continue with oral antibiotics. Follow-up pulmonary recommendation Labs and medication were reviewed.. Continue same treatment. Continue with symptomatic treatment. Resume home medication. Monitor lytes and vitals. DVT and GI prophylaxis. Further recommendations of the clinical course of the patient DVT prophylaxis: Subcutaneous heparin GI Prophylaxis: Pepcid
--- NOTE | 2018-12-14 15:48 | P.PN ---
Subjective Progress Note Date: 12/14/18 Principal diagnosis: Acute exacerbation of oxygen dependent chronic obstructive pulmonary disease This is a very pleasant 58-year-old male patient with advanced COPD with an FEV1 of less than 30% of predicted and chronic hypoxic respiratory failure with reduction dependent who also has history of obstructive sleep apnea mechanical CPAP therapy. The patient has an AHI of 23 and the patient has been maintained on CPAP therapy at a pressure of 9 cm of water on outpatient basis. In terms of COPD, the patient has been receiving Dulera, theophylline and maintenance 5 mg of prednisone a daily basis. The patient had multiple hospitalizations for COPD exacerbations. He does have chronic and ongoing tobacco dependence despite the fact that he was here in March 2018 required intubation, trach and PEG placement and after 2 weeks here was 2 weeks at [facility]. He s ubsequently did recover and he was decannulated. He had been doing fairly well until recently developed increasing shortness of breath cough and congestion. He is seen at Dr. Han's office and was treated with antibiotics and prednisone without much improvement. He presented here to the emergency room for the same. Chest x-ray shows evidence of chronic obstructive pulmonary disease. There is noted prominent pulmonary arteries associated with possible pulmonary arterial hypertension. No evidence of focal pneumonia, no pneumothorax, no effusion. White count 10.6. Hemoglobin 14.0. Sodium 139. Potassium 4.5. Bicarb 35. Creatinine 0.78. He is seen today in consultation on the regular medical floor. He is awake and alert. He is in mild respiratory distress. He has a loose nonproductive cough. Maintaining O2 saturations in the 90s on 2 L/m per nasal cannula. He is tachycardic. Normotensive. Afebrile. He is quite dyspneic on minimal exertion and conversation. He's been initiated on azithromycin, Symbicort, oral prednisone and DuoNeb inhalations. The patient was seen today 12/14/2018 in follow-up on the regular medical floor. He is currently resting comfortably in bed. Awake and alert in no acute distress. He's been off the BiPAP. Maintaining O2 saturations in the mid 90s on 5 L/m per nasal cannula. He's been afebrile. Hemodynamically stable. Bronchial cultures reveal no growth. He remains on doxycycline along with DuoNeb inhalations, Pulmicort and Perforomist inhalations, IV Solu-Medrol. He is feeling less anxious he was initiated on Zoloft yesterday. He is hoping to go home. Objective - Vital Signs Vital signs: Vital Signs Temp 97.9 F 12/14/18 14:01 Pulse 85 12/14/18 14:01 Resp 16 12/14/18 14:01 BP 137/79 12/14/18 14:01 Pulse Ox 95 12/14/18 14:01 Intake & Output 12/13/18 12/14/18 12/14/18 18:59 06:59 18:59 Other: Voiding Method Toilet Toilet Toilet Urinal Urinal Urinal # Voids 2 1 3 - Exam GENERAL EXAM: Alert, pleasant 58-year-old gentleman, on 5 L nasal cannula, comfortable in no apparent distress. HEAD: Normocephalic. EYES: Normal reaction of pupils, equal size. NOSE: Clear with pink turbinates. THROAT: No erythema or exudates. NECK: Evidence of previous tracheotomy. No masses, no JVD. CHEST: No chest wall deformity. LUNGS: Equal air entry with bilateral end expiratory wheeze, diminished. CVS: S1 and S2 normal with no audible murmur, regular rhythm. ABDOMEN: No hepatosplenomegaly, normal bowel sounds, no guarding or rigidity. SPINE: No scoliosis or deformity SKIN: No rashes CENTRAL NERVOUS SYSTEM: No focal deficits, tone is normal in all 4 extremities. EXTREMITIES: There is no peripheral edema. No clubbing, no cyanosis. Peripheral pulses are intact. - Labs CBC & Chem 7: 12/13/18 07:00 12/13/18 07:00 Labs: Abnormal Lab Results - Last 24 Hours (Table) 12/13/18 12/13/18 12/14/18 Range/Units 16:51 20:13 07:13 POC Glucose (mg/dL) 241 H 190 H 251 H (75-99) mg/dL 12/14/18 Range/Units 12:00 POC Glucose (mg/dL) 137 H (75-99) mg/dL Microbiology - Last 24 Hours (Table) 12/10/18 12:00 Fungal Culture - Preliminary Bronchial Washings - Right Betzaida albicans Assessment and Plan Assessment: Impression: 1 Acute exacerbation of severe oxygen dependent chronic obstructive pulmonary disease complicated by purulent tracheobronchitis. Status post bronchoscopy with BAL. Cultures pending. 2 Acute on top of chronic hypoxic respiratory failure, secondary to above 3 Acute on chronic hypercapnic respiratory failure secondary to COPD 4 Advanced COPD at baseline with FEV1 of less than 30% of predicted 5 Previous hospitalization here in March 2018 requiring prolonged mechanical ventilator with subsequent trach E and PEG tube placement and [facility]. Discharge in April 2018. The cannulated. 6 Chronic and ongoing tobacco dependence 7 Chronic anxiety 8 Obstructive sleep apnea maintained on CPAP at a pressure of 9 cm of water on outpatient basis Plan: The patient was seen and evaluated today. He is improved and nearly back to his baseline as far as his breathing is concerned. He is less anxious. He was started on Zoloft. He is hoping to go home today. He has an appointment with Dr. Ho this week. He'll continue prednisone taper. Complete course of antibiotics. Call sooner with any recurrence of symptoms or other questions or concerns. He is again educated regarding importance of complete smoking cessation. I, the cosigning physician, performed a history & physical examination of the patient. Lungs sounds with bilateral end expiratory wheeze, few scattered rhonchi, diminished. Maintaining good O2 saturations in the 90s on 5 L/m per nasal cannula. I discussed the assessment and plan of care with my nurse practitioner, Donna Neri. I attest to the above consultation as dictated by her.
[2018-12-14] MEDS: FLUCONAZOLE 100 MG TAB PO SCH (15:57)
[2018-12-14 17:01] LABS: Glucose,Whole Blood 179 mg/dL (75-99)
[2018-12-14 20:56] LABS: Glucose,Whole Blood 156 mg/dL (75-99)
[2018-12-14] MEDS: DOXYCYCLINE 100 MG in SODIUM CHLORIDE 0.9% 100 ML IVPB SCH (21:24)
[2018-12-14] MEDS: LACTATED RINGERS 1,000 ML IV SCH (22:30)
[2018-12-15] MEDS: methylPREDNISolone SOD SUCCI 125 MG/2 ML VIAL IV SCH ×2 (04:55→12:04)
[2018-12-15] MEDS: ALPRAZolam 0.5 MG TAB PO PRN ×2 (06:31→15:06)
[2018-12-15 07:19] LABS: Glucose,Whole Blood 139 mg/dL (75-99)
[2018-12-15] MEDS: HEPARIN SODIUM,PORCINE 5,000 UNIT/ML 1 ML VIAL SQ SCH (07:51)
[2018-12-15] MEDS: DOXYCYCLINE 100 MG in SODIUM CHLORIDE 0.9% 100 ML IVPB SCH (07:51)
[2018-12-15] MEDS: FAMOTIDINE 20 MG TAB PO SCH (07:51)
[2018-12-15] MEDS: FLUCONAZOLE 100 MG TAB PO SCH (07:51)
[2018-12-15] MEDS: INSULIN ASPART (NovoLOG) 100 UNIT/ML VIAL SQ SCH ×2 (07:51→12:03)
[2018-12-15] MEDS: SERTRALINE 100 MG TAB PO SCH (07:51)
[2018-12-15] MEDS: cloNIDine HCL 0.1 MG TAB PO SCH (07:53)
[2018-12-15] MEDS: BUDESONIDE 1 MG/2 ML NEBU INHALATION SCH (09:05)
[2018-12-15] MEDS: IPRATROPIUM-ALBUTEROL 3 ML NEB INHALATION SCH ×2 (09:05→12:21)
[2018-12-15] MEDS: FORMOTEROL FUMARATE 20 MCG/2 ML NEBU INHALATION SCH (09:05)
[2018-12-15 11:26] VITALS: BP 136/80; TEMP 98.1
[2018-12-15 11:42] LABS: Glucose,Whole Blood 182 mg/dL (75-99)
[2018-12-15 12:28] VITALS: PULSE 92
--- NOTE | 2018-12-15 14:16 | P.PN ---
Subjective Progress Note Date: 12/15/18 Principal diagnosis: Acute exacerbation of oxygen dependent chronic obstructive pulmonary disease This is a very pleasant 58-year-old male patient with advanced COPD with an FEV1 of less than 30% of predicted and chronic hypoxic respiratory failure with reduction dependent who also has history of obstructive sleep apnea mechanical CPAP therapy. The patient has an AHI of 23 and the patient has been maintained on CPAP therapy at a pressure of 9 cm of water on outpatient basis. In terms of COPD, the patient has been receiving Dulera, theophylline and maintenance 5 mg of prednisone a daily basis. The patient had multiple hospitalizations for COPD exacerbations. He does have chronic and ongoing tobacco dependence despite the fact that he was here in March 2018 required intubation, trach and PEG placement and after 2 weeks here was 2 weeks at [facility]. He s ubsequently did recover and he was decannulated. He had been doing fairly well until recently developed increasing shortness of breath cough and congestion. He is seen at Dr. Han's office and was treated with antibiotics and prednisone without much improvement. He presented here to the emergency room for the same. Chest x-ray shows evidence of chronic obstructive pulmonary disease. There is noted prominent pulmonary arteries associated with possible pulmonary arterial hypertension. No evidence of focal pneumonia, no pneumothorax, no effusion. White count 10.6. Hemoglobin 14.0. Sodium 139. Potassium 4.5. Bicarb 35. Creatinine 0.78. He is seen today in consultation on the regular medical floor. He is awake and alert. He is in mild respiratory distress. He has a loose nonproductive cough. Maintaining O2 saturations in the 90s on 2 L/m per nasal cannula. He is tachycardic. Normotensive. Afebrile. He is quite dyspneic on minimal exertion and conversation. He's been initiated on azithromycin, Symbicort, oral prednisone and DuoNeb inhalations. The patient was seen today 12/14/2018 in follow-up on the regular medical floor. He is currently resting comfortably in bed. Awake and alert in no acute distress. He's been off the BiPAP. Maintaining O2 saturations in the mid 90s on 5 L/m per nasal cannula. He's been afebrile. Hemodynamically stable. Bronchial cultures reveal no growth. He remains on doxycycline along with DuoNeb inhalations, Pulmicort and Perforomist inhalations, IV Solu-Medrol. He is feeling less anxious he was initiated on Zoloft yesterday. He is hoping to go home. The patient was seen today 12/15/2018 in follow-up on the regular medical floor. He is sitting up at the bedside. Awake and alert in no acute distress. He's been off the BiPAP over 24 hours. Currently maintaining good O2 saturations in the mid to upper 90s on 5 L/m per nasal cannula. He is afebrile. No tachycardia. No tachypnea. Bronchial wash cultures reveal no growth. He remains on doxycycline. Bronchodilators. Diflucan, Solu-Medrol. He admits to having less anxiety since being initiated on Zoloft. He is anxious to go home. Objective - Vital Signs Vital signs: Vital Signs Temp 98.1 F 12/15/18 10:53 Pulse 92 12/15/18 12:33 Resp 16 12/15/18 10:53 BP 136/80 12/15/18 10:53 Pulse Ox 97 12/15/18 10:53 Intake & Output 12/14/18 12/15/18 12/15/18 18:59 06:59 18:59 Intake Total 200 Balance 200 Intake: Intake, IV Titration 200 Amount Doxycycline 100 mg In 200 Sodium Chloride 0.9% 100 ml @ 100 mls/hr IVPB Q12HR [facility] Rx#:[id number] Other: Voiding Method Toilet Toilet Toilet Urinal # Voids 3 2 - Exam GENERAL EXAM: Alert, pleasant 58-year-old gentleman, on 5 L nasal cannula, comfortable in no apparent distress. HEAD: Normocephalic. EYES: Normal reaction of pupils, equal size. NOSE: Clear with pink turbinates. THROAT: No erythema or exudates. NECK: Evidence of previous tracheotomy. No masses, no JVD. CHEST: No chest wall deformity. LUNGS: Equal air entry with bilateral end expiratory wheeze, diminished. CVS: S1 and S2 normal with no audible murmur, regular rhythm. ABDOMEN: No hepatosplenomegaly, normal bowel sounds, no guarding or rigidity. SPINE: No scoliosis or deformity SKIN: No rashes CENTRAL NERVOUS SYSTEM: No focal deficits, tone is normal in all 4 extremities. EXTREMITIES: There is no peripheral edema. No clubbing, no cyanosis. Peripheral pulses are intact. - Labs CBC & Chem 7: 12/13/18 07:00 12/13/18 07:00 Labs: Abnormal Lab Results - Last 24 Hours (Table) 12/14/18 12/14/18 12/15/18 Range/Units 16:37 20:44 07:03 POC Glucose (mg/dL) 179 H 156 H 139 H (75-99) mg/dL 12/15/18 Range/Units 11:31 POC Glucose (mg/dL) 182 H (75-99) mg/dL Assessment and Plan Assessment: Impression: 1 Acute exacerbation of severe oxygen dependent chronic obstructive pulmonary disease complicated by purulent tracheobronchitis. Status post bronchoscopy with BAL. Cultures pending. 2 Acute on top of chronic hypoxic respiratory failure, secondary to above 3 Acute on chronic hypercapnic respiratory failure secondary to COPD 4 Advanced COPD at baseline with FEV1 of less than 30% of predicted 5 Previous hospitalization here in March 2018 requiring prolonged mechanical ventilator with subsequent trach E and PEG tube placement and [facility] Discharge in April 2018. The cannulated. 6 Chronic and ongoing tobacco dependence 7 Chronic anxiety 8 Obstructive sleep apnea maintained on CPAP at a pressure of 9 cm of water on outpatient basis Plan: The patient was seen and evaluated by Dr. Valencia. He would most likely benefit from BiPAP at home versus just CPAP. He'll follow up with Dr. Ho in our office in 2 days. He'll be ordered a BiPAP titration study and possibly upgrade his CPAP machine to BiPAP machine. Complete course of antibiotics. Continue prednisone burst and taper starting at 40 mg daily 4 days. He is again educated regarding importance of complete smoking cessation. He is encouraged to call sooner with any recurrence of symptoms or other questions or concerns. I, the cosigning physician, performed a history & physical examination of the patient. Lungs sounds with bilateral end expiratory wheeze, few scattered rhonchi, diminished. Maintaining good O2 saturations in the 90s on 5 L/m per nasal cannula. I discussed the assessment and plan of care with my nurse practitioner, Donna Neri. I attest to the above consultation as dictated by her.
[2018-12-15] MEDS ORDERED: predniSONE 50 MG TAB PO SCH (14:30)
== END 2018-12-15 15:36 | disposition home or self-care (01) | DRG 190 ==
LOC: EC 09:24 → 4SSUR 11:20
PROVIDERS: ADMIT Internal Medicine; ATTEND Internal Medicine
PROC: 0BC48ZZ Extirpation of Matter from Right Upper Lobe Bronchus, Via Natural or Artificial Opening Endoscopic (ICD-10-PCS; 2018-12-10)
PROC: 0BC88ZZ Extirpation of Matter from Left Upper Lobe Bronchus, Via Natural or Artificial Opening Endoscopic (ICD-10-PCS; 2018-12-10)
PROC: 0BC58ZZ Extirpation of Matter from Right Middle Lobe Bronchus, Via Natural or Artificial Opening Endoscopic (ICD-10-PCS; 2018-12-10)
PROC: 0BC38ZZ Extirpation of Matter from Right Main Bronchus, Via Natural or Artificial Opening Endoscopic (ICD-10-PCS; 2018-12-10)
PROC: 0BC78ZZ Extirpation of Matter from Left Main Bronchus, Via Natural or Artificial Opening Endoscopic (ICD-10-PCS; 2018-12-10)
PROC: 0BC68ZZ Extirpation of Matter from Right Lower Lobe Bronchus, Via Natural or Artificial Opening Endoscopic (ICD-10-PCS; 2018-12-10)
PROC: 0BCB8ZZ Extirpation of Matter from Left Lower Lobe Bronchus, Via Natural or Artificial Opening Endoscopic (ICD-10-PCS; 2018-12-10)
PROC: 0B9D8ZZ Drainage of Right Middle Lung Lobe, Via Natural or Artificial Opening Endoscopic (ICD-10-PCS; 2018-12-10)
PROC: 0BC98ZZ Extirpation of Matter from Lingula Bronchus, Via Natural or Artificial Opening Endoscopic (ICD-10-PCS; principal; 2018-12-10 07:30)
DX: J44.1 Chronic obstructive pulmonary disease with (acute) exacerbation (principal); J96.22 Acute and chronic respiratory failure with hypercapnia; J96.21 Acute and chronic respiratory failure with hypoxia; B37.1 Pulmonary candidiasis; J20.9 Acute bronchitis, unspecified; G47.33 Obstructive sleep apnea (adult) (pediatric); Z99.89 Dependence on other enabling machines and devices; F17.210 Nicotine dependence, cigarettes, uncomplicated; Z71.6 Tobacco abuse counseling; F41.9 Anxiety disorder, unspecified; I10 Essential (primary) hypertension; J44.0 Chronic obstructive pulmonary disease with (acute) lower respiratory infection; M85.80 Other specified disorders of bone density and structure, unspecified site; Z79.51 Long term (current) use of inhaled steroids; Z79.52 Long term (current) use of systemic steroids; Z79.83 Long term (current) use of bisphosphonates; Z79.899 Other long term (current) drug therapy; Z80.1 Family history of malignant neoplasm of trachea, bronchus and lung; Z82.5 Family history of asthma and other chronic lower respiratory diseases; Z87.442 Personal history of urinary calculi; Z99.81 Dependence on supplemental oxygen; R73.9 Hyperglycemia, unspecified; T38.0X5A Adverse effect of glucocorticoids and synthetic analogues, initial encounter
CPT/HCPCS: 31624; 36415; 71045; 71046; 80048; 82803; 85025; 87070; 87102; 87116; 87205; 87206; 87252; 87496; 87498; 87502; 87529; 87634; 87798; 88108; 88305; 89050; 93005; 94640; 94644; 94660; 94760; 96365; 96366; 96375; 99285

== ENCOUNTER 2019-04-01 08:40 | Inpatient (IN) | payer BC ==
[2019-04-01] MEDS ORDERED: IPRATROPIUM-ALBUTEROL 3 ML NEB INHALATION STA (08:46)
[2019-04-01] MEDS ORDERED: methylPREDNISolone SOD SUCCI 125 MG/2 ML VIAL IV STA (08:46)
--- NOTE | 2019-04-01 08:49 | ED ---
General Adult HPI - General Stated complaint: SOB Time Seen by Provider: 04/01/19 08:41 Source: patient, EMS, RN notes reviewed Mode of arrival: EMS Limitations: no limitations - History of Present Illness Initial comments: Patient is a 58-year-old male presenting to the emergency department difficulty breathing. Onset of symptoms was 2 days ago. Patient did have chills last night. Patient has been coughing, more so last night. Cough is been nonproductive. No leg pain or leg swelling. Patient does have history of similar symptoms previous associated with COPD. EMS states patient has improved since 2 nebulizer treatments and CPAP. Patient feels same way. - Related Data Home Medications Medication Instructions Recorded Confirmed Fexofenadine HCl [Alaina Allergy] 180 mg PO DAILY 03/21/15 12/09/18 Mometasone/Formoterol [Dulera 200 2 puff INHALATION RT-BID 03/21/15 12/09/18 Mcg/5 Mcg Inhaler] Albuterol Sulfate [Proair Hfa] 2 puff INHALATION RT-QID PRN 07/28/16 12/09/18 Alendronate Sodium [Fosamax] 70 mg PO DE LA CRUZ 07/28/16 12/09/18 Theophylline Anhydrous [Uniphyl] 200 mg PO BID 12/20/16 12/09/18 Ipratropium-Albuterol Nebulize 3 ml INHALATION RT-QID PRN 01/04/18 12/09/18 [Duoneb 0.5 mg-3 mg/3 ml Soln] Albuterol Nebulized [Ventolin 2.5 mg INHALATION RT-Q4H PRN 12/09/18 12/09/18 Nebulized] Cyanocobalamin (Vitamin B-12) 1,000 mcg PO DAILY 12/09/18 12/09/18 [Vitamin B-12] Vitamin B Complex 1 cap PO DAILY 12/09/18 12/09/18 predniSONE 5 mg PO DIRECTED 12/09/18 12/09/18 Previous Rx's Medication Instructions Recorded amLODIPine [Norvasc] 10 mg PO DAILY #30 tab 04/13/18 Doxycycline [Vibramycin] 100 mg PO BID 5 Days #10 capsule 12/15/18 Fluconazole [Diflucan] 100 mg PO DAILY #5 tab 12/15/18 Sertraline [Zoloft] 100 mg PO DAILY #30 tab 12/15/18 predniSONE See Taper PO DIRECTED #30 tab 12/15/18 Allergies Allergy/AdvReac Type Severity Reaction Status Date / Time No Known Allergies Allergy Verified 04/01/19 08:52 Review of Systems ROS Statement: Those systems with pertinent positive or pertinent negative responses have been documented in the HPI. ROS Other: All systems not noted in ROS Statement are negative. Constitutional: Reports: as per HPI, chills Eyes: Denies: eye pain ENT: Denies: ear pain Respiratory: Reports: as per HPI, cough, dyspnea Cardiovascular: Denies: chest pain Endocrine: Reports: fatigue Gastrointestinal: Denies: abdominal pain Genitourinary: Denies: dysuria Musculoskeletal: Denies: back pain Skin: Denies: rash Neurological: Denies: weakness Past Medical History Past Medical History: COPD, Pneumonia, Renal Disease, Respiratory Disorder, Sleep Apnea/CPAP/BIPAP Additional Past Medical History / Comment(s): Chronic hypoxic respiratory failure with home oxygen at 3L/NC, past respiratory failure with ET/vent/trach and peg tube, CPAP/oxygen at night, tracheobronchitis, bronchitis, elevated blood sugars with steroid use, kidney stones, osteopenia History of Any Multi-Drug Resistant Organisms: None Reported Past Surgical History: Hernia Repair, Tonsillectomy Additional Past Surgical History / Comment(s): R inguinal hernia repair, tracheostomy, peg tube. Past Anesthesia/Blood Transfusion Reactions: No Reported Reaction Additional Past Anesthesia/Blood Transfusion Reaction / Comment(s): no blood transfusions Smoking Status: Current some day smoker - Past Family History Father Family Medical History: Cancer Additional Family Medical History / Comment(s): of lung cancer Mother Family Medical History: Asthma General Exam Limitations: no limitations General appearance: alert Head exam: Present: normocephalic Eye exam: Present: normal appearance Neck exam: Present: normal inspection Respiratory exam: Present: respiratory distress, wheezes, decreased breath sounds Cardiovascular Exam: Present: regular rate, normal rhythm GI/Abdominal exam: Present: soft. Absent: tenderness Extremities exam: Present: normal inspection. Absent: pedal edema, calf ten derness Neurological exam: Present: alert Psychiatric exam: Present: normal affect, normal mood Skin exam: Present: normal color Course Vital Signs 04/01/19 04/01/19 04/01/19 08:49 08:52 09:04 Temperature 97.5 F L Pulse Rate 121 H 118 H 112 H Respiratory 30 H Rate Blood Pressure 126/84 O2 Sat by Pulse 99 Oximetry 04/01/19 09:41 Temperature Pulse Rate 117 H Respiratory 28 H Rate Blood Pressure 126/84 O2 Sat by Pulse 99 Oximetry - Reevaluation(s) Reevaluation #1: 04/01/19 08:48 Respiratory as present. Patient is placed on BiPAP. Repeat nebulizer and Solu- Medrol ordered. EKG Findings - EKG Comments: EKG Findings:: Sinus tachycardia 116. CA 166. QRS 96. QT 308. QTC 428. Normal axis. Normal QRS. No acute ST change. Medical Decision Making - Medical Decision Making Patient reevaluated and somewhat improved with BiPAP. Patient and family updated. Case discussed with Dr. Stuart, who will admit covering for Dr. Han - Lab Data Result diagrams: 04/01/19 09:05 04/01/19 09:05 Lab Results 04/01/19 04/01/19 04/01/19 Range/Units 09:05 09:05 09:05 WBC 7.5 (3.8-10.6) k/uL RBC 4.85 (4.30-5.90) m/uL Hgb 14.8 (13.0-17.5) gm/dL Hct 44.9 (39.0-53.0) % MCV 92.7 (80.0-100.0) fL MCH 30.5 (25.0-35.0) pg MCHC 32.9 (31.0-37.0) g/dL RDW 13.0 (11.5-15.5) % Plt Count 182 (150-450) k/uL Neutrophils % 78 % Lymphocytes % 14 % Monocytes % 5 % Eosinophils % 0 % Basophils % 0 % Neutrophils # 5.8 (1.3-7.7) k/uL Lymphocytes # 1.1 (1.0-4.8) k/uL Monocytes # 0.4 (0-1.0) k/uL Eosinophils # 0.0 (0-0.7) k/uL Basophils # 0.0 (0-0.2) k/uL Sodium 139 (137-145) mmol/L Potassium 4.5 (3.5-5.1) mmol/L Chloride 97 L (98-107) mmol/L Carbon Dioxide 29 (22-30) mmol/L Anion Gap 13 mmol/L BUN 18 (9-20) mg/dL Creatinine 0.87 (0.66-1.25) mg/dL Est GFR (CKD-EPI)AfAm >90 (>60 ml/min/1.73 sqM) Est GFR (CKD-EPI)NonAf >90 (>60 ml/min/1.73 sqM) Glucose 93 (74-99) mg/dL Plasma Lactic Acid Joao (0.7-2.0) mmol/L Calcium 9.5 (8.4-10.2) mg/dL Total Bilirubin 0.6 (0.2-1.3) mg/dL AST 28 (17-59) U/L ALT 15 (4-49) U/L Alkaline Phosphatase 70 (38-126) U/L Total Protein 7.2 (6.3-8.2) g/dL Albumin 4.6 (3.5-5.0) g/dL Influenza Type A RNA Detected H (Not Detectd) Influenza Type B (PCR) Not Detected (Not Detectd) 04/01/19 Range/Units 09:05 WBC (3.8-10.6) k/uL RBC (4.30-5.90) m/uL Hgb (13.0-17.5) gm/dL Hct (39.0-53.0) % MCV (80.0-100.0) fL MCH (25.0-35.0) pg MCHC (31.0-37.0) g/dL RDW (11.5-15.5) % Plt Count (150-450) k/uL Neutrophils % % Lymphocytes % % Monocytes % % Eosinophils % % Basophils % % Neutrophils # (1.3-7.7) k/uL Lymphocytes # (1.0-4.8) k/uL Monocytes # (0-1.0) k/uL Eosinophils # (0-0.7) k/uL Basophils # (0-0.2) k/uL Sodium (137-145) mmol/L Potassium (3.5-5.1) mmol/L Chloride (98-107) mmol/L Carbon Dioxide (22-30) mmol/L Anion Gap mmol/L BUN (9-20) mg/dL Creatinine (0.66-1.25) mg/dL Est GFR (CKD-EPI)AfAm (>60 ml/min/1.73 sqM) Est GFR (CKD-EPI)NonAf (>60 ml/min/1.73 sqM) Glucose (74-99) mg/dL Plasma Lactic Acid Joao 1.9 (0.7-2.0) mmol/L Calcium (8.4-10.2) mg/dL Total Bilirubin (0.2-1.3) mg/dL AST (17-59) U/L ALT (4-49) U/L Alkaline Phosphatase (38-126) U/L Total Protein (6.3-8.2) g/dL Albumin (3.5-5.0) g/dL Influenza Type A RNA (Not Detectd) Influenza Type B (PCR) (Not Detectd) - Radiology Data Radiology results: image reviewed (Chest x-ray shows chronic changes without acute process) Critical Care Time Critical Care Time: Yes Total Critical Care Time: 33 Disposition Clinical Impression: Acute respiratory failure, COPD exacerbation, Influenza Disposition: ADMITTED IP TO THIS HOSP Condition: Serious Is patient prescribed a controlled substance at d/c from ED?: No Referrals: Naye Han DO [Primary Care Provider] - 1-2 days Decision Time: 09:44
--- NOTE | 2019-04-01 09:36 | XR ---
EXAMINATION TYPE: XR chest 1V portable DATE OF EXAM: 04/01/2019 HISTORY: Shortness of breath. COMPARISON: 12/13/2018 TECHNIQUE: Single view of the chest is submitted. FINDINGS: Demonstrated are scattered senescent parenchymal change. There is no evidence for focal infiltrate. The heart is stable. Hilar and mediastinal structures are within normal limits. Degenerative changes are seen of the dorsal spine. IMPRESSION: 1. Chronic changes without evidence for acute pulmonary disease.
[2019-04-01 09:40] LABS: Basophils % (A) 0 %; Eosinophils % (A) 0 %; HCT 44.9 % (39.0-53.0); HGB 14.8 gm/dL (13.0-17.5); Lymphocytes # (A) 1.1 k/uL (1.0-4.8); Lymphocytes % (A) 14 %; MCH 30.5 pg (25.0-35.0); MCHC 32.9 g/dL (31.0-37.0); MCV 92.7 fL (80.0-100.0); Monocytes # (A) 0.4 k/uL (0-1.0); Monocytes % (A) 5 %; Neutrophils # (A) 5.8 k/uL (1.3-7.7); Neutrophils % (A) 78 %; Platelet Count 182 k/uL (150-450); RBC 4.85 m/uL (4.30-5.90); WBC 7.5 k/uL (3.8-10.6)
[2019-04-01] MEDS ORDERED: LEVOFLOXACIN 750MG-D5W PMX 750 MG in DEXTROSE/WATER 1 150ML.BAG IVPB STA (09:45)
[2019-04-01 09:54] LABS: ALT 15 U/L (4-49); AST 28 U/L (17-59); African American GFR (CKD) >90 (>60 ml/min/1.73 sqM); Albumin 4.6 g/dL (3.5-5.0); Alkaline Phosphatase 70 U/L (38-126); Anion Gap 13 mmol/L; Blood Urea Nitrogen 18 mg/dL (9-20); Calcium 9.5 mg/dL (8.4-10.2); Carbon Dioxide 29 mmol/L (22-30); Chloride 97 mmol/L (98-107); Glucose 93 mg/dL (74-99); Non-African American GFR(CKD) >90 (>60 ml/min/1.73 sqM); Potassium 4.5 mmol/L (3.5-5.1); Sodium 139 mmol/L (137-145); Total Bilirubin 0.6 mg/dL (0.2-1.3); Total Protein 7.2 g/dL (6.3-8.2)
[2019-04-01] MEDS ORDERED: SODIUM CHLORIDE 0.9% 1,000 ML IV STA (09:55)
[2019-04-01] MEDS: OSELTAMIVIR 75 MG CAP PO SCH ×2 (10:04→20:37)
[2019-04-01] MEDS ORDERED: EPINEPHrine 1 MG/ML 1 ML AMP IM PRN (12:29)
--- NOTE | 2019-04-01 12:36 | P.HPIM ---
History of Present Illness 58-year-old male with thousand dependent COPD appears to be advanced to came in with complaints of shortness of breath body aches found to have influenza positive and the patient was in respiratory failure requiring BiPAP at this time patient normally uses 2 L of onset at home. Patient can use to smoke about 4 cigarettes a day trying to quit use to smoke quite a bit in the past chest x-ray did not show any pneumonia although patient is on the and along with Tamiflu may not require reflux but I'll leave this discussion to select banker was consulted. Patient is complaining of cough unable to bring up anything Review of Systems REVIEW OF SYSTEMS: CONSTITUTIONAL: No fever, no malaise, no fatigue. HEENT: No recent visual problems or hearing problems. Denied any sore throat. CARDIOVASCULAR: No chest pain, orthopnea, PND, no palpitations, no syncope. PULMONARY: As mentioned in HPI GASTROINTESTINAL: No diarrhea, no nausea, no vomiting, no abdominal pain. NEUROLOGICAL: No headaches, no weakness, no numbness. HEMATOLOGICAL: Denies any bleeding or petechiae. GENITOURINARY: Denies any burning micturition, frequency, or urgency. MUSCULOSKELETAL/RHEUMATOLOGICAL: Denies any joint pain, swelling, or any muscle pain. ENDOCRINE: Denies any polyuria or polydipsia. The rest of the 14-point review of systems is negative. Past Medical History Past Medical History: COPD, Pneumonia, Renal Disease, Respiratory Disorder, Sleep Apnea/CPAP/BIPAP Additional Past Medical History / Comment(s): Chronic hypoxic respiratory failur e with home oxygen at 3L/NC, past respiratory failure with ET/vent/trach and peg tube, CPAP/oxygen at night, tracheobronchitis, bronchitis, elevated blood sugars with steroid use, kidney stones, osteopenia History of Any Multi-Drug Resistant Organisms: None Reported Past Surgical History: Hernia Repair, Tonsillectomy Additional Past Surgical History / Comment(s): R inguinal hernia repair, tracheostomy, peg tube. Past Anesthesia/Blood Transfusion Reactions: No Reported Reaction Additional Past Anesthesia/Blood Transfusion Reaction / Comment(s): no blood transfusions Smoking Status: Current some day smoker - Past Family History Father Family Medical History: Cancer Additional Family Medical History / Comment(s): of lung cancer Mother Family Medical History: Asthma Medications and Allergies Home Medications Medication Instructions Recorded Confirmed Type Albuterol Sulfate [Proair Hfa] 2 puff INHALATION RT-TID PRN 07/28/16 04/01/19 History Alendronate Sodium [Fosamax] 70 mg PO DE LA CRUZ 07/28/16 04/01/19 History Theophylline Anhydrous [Uniphyl] 200 mg PO BID 12/20/16 04/01/19 History Ipratropium-Albuterol Nebulize 3 ml INHALATION RT-QID PRN 01/04/18 04/01/19 History [Duoneb 0.5 mg-3 mg/3 ml Soln] amLODIPine [Norvasc] 10 mg PO DAILY #30 tab 04/13/18 04/01/19 Rx Albuterol Nebulized [Ventolin 2.5 mg INHALATION RT-Q4H PRN 12/09/18 04/01/19 History Nebulized] Cyanocobalamin (Vitamin B-12) 5,000 mcg PO DAILY 12/09/18 04/01/19 History [Vitamin B-12] Vitamin B Complex 1 cap PO DAILY 12/09/18 04/01/19 History predniSONE 5 mg PO DAILY 12/09/18 04/01/19 History Azithromycin [Zithromax] 250 mg PO Q48H 04/01/19 04/01/19 History EPINEPHrine (Auto Inject) [Epipen] 0.3 mg IM ONCE PRN 04/01/19 04/01/19 History Fluticasone/Umeclidin/Vilanter 1 puff INHALATION RT-DAILY 04/01/19 04/01/19 History [Trelegy Ellipta 100-62.5-25] Loratadine [Claritin] 10 mg PO DAILY 04/01/19 04/01/19 History Multivit-Min/FA/Lycopen/Lutein 1 tab PO DAILY 04/01/19 04/01/19 History [Centrum Silver Tablet] Potassium Citrate [Urocit-K] 10 meq PO BID 04/01/19 04/01/19 History Allergies Allergy/AdvReac Type Severity Reaction Status Date / Time No Known Allergies Allergy Verified 04/01/19 10:23 Physical Exam Vitals: Vital Signs Temp Pulse Resp BP Pulse Ox 04/01/19 12:27 98 F 04/01/19 12:00 104 H 28 H 128/94 98 04/01/19 11:00 106 H 29 H 129/104 98 04/01/19 10:00 114 H 25 H 112/87 100 04/01/19 09:41 117 H 28 H 126/84 99 04/01/19 09:04 112 H 04/01/19 08:52 118 H 04/01/19 08:49 97.5 F L 121 H 30 H 126/84 99 Intake and Output 03/31/19 04/01/19 04/01/19 22:59 06:59 14:59 Other: Weight 70.307 kg PHYSICAL EXAMINATION: GENERAL: The patient is alert and oriented x3, patient is in respiratory distress. Well developed, well nourished. HEENT: Pupils are round and equally reacting to light. EOMI. No scleral icterus. No conjunctival pallor. Normocephalic, atraumatic. No pharyngeal erythema. No thyromegaly. CARDIOVASCULAR: S1 and S2 present. No murmurs, rubs, or gallops. PULMONARY: See defiantly decreased air entry bilateral lung joseph patient is on BiPAP using any accessory is a bleeding patient is in respiratory distress and significant wheezing on exam ABDOMEN: Soft, nontender, nondistended, normoactive bowel sounds. No palpable organomegaly. MUSCULOSKELETAL: No joint swelling or deformity. EXTREMITIES: No cyanosis, clubbing, or pedal edema. NEUROLOGICAL: Gross neurological examination did not reveal any focal deficits. SKIN: No rashes. Results CBC & Chem 7: 04/01/19 09:05 04/01/19 09:05 Labs: Abnormal Lab Results - Last 24 Hours (Table) 04/01/19 04/01/19 Range/Units 09:05 09:05 Chloride 97 L (98-107) mmol/L Influenza Type A RNA Detected H (Not Detectd) Assessment and Plan Plan: -Acute on chronic hypercapnic respiratory failure secondary to COPD exacerbation: Patient was started on systemic steroids and Tamiflu which will be continued may not require levofloxacin but this physician will be left to select banker. COPD is frustrated by influenza nicotine cessation counseling was provided patient is also on theophylline which will be resumed. Continue BiPAP wean off as tolerated -Tracheobronchitis: Secondary to influenza. -Sleep apnea: Uses CPAP machine which will be resumed and continued -Anxiety disorder -Hypertension: On amlodipine which will be resumed and continued -DVT prophylaxis with subcutaneous heparin prophylaxis with Pepcid
[2019-04-01] MEDS: IPRATROPIUM-ALBUTEROL 3 ML NEB INHALATION SCH ×3 (13:01→20:06)
[2019-04-01] MEDS: methylPREDNISolone SOD SUCCI 125 MG/2 ML VIAL IV SCH ×3 (14:24→23:46)
--- NOTE | 2019-04-01 15:08 | P.CNPUL ---
History of Present Illness Consult date: 04/01/19 Reason for consult: COPD History of present illness: Is a very pleasant 58-year-old male patient with advanced COPD chronic oxygen dependent and he has also chronic hypoxic respiratory failure maintained on oxygen with an FEV1 of 30% of predicted. He has had a acute COPD exacerbation related to influenza infection back in March 2018. He subsequently got to be admitted in December 2018 for another COPD exacerbation. He is currently on Trelegy one inhalation a day and theophylline and albuterol HFA and DuoNeb on an as-needed basis. He also has obstructive sleep apnea with an AHI of 23 and he is on a CPAP pressure of 9 cm of water and he was unable to use the CPAP for some time. He was having problems with using CPAP. He felt he would do better with a BiPAP as the patient was treated with BiPAP on previous hospital admissions and he was able to tolerated it without any major difficulties. He takes Xanax for chronic anxiety. The patient came in yesterday to the emergency department having difficulties with breathing. He was positive for influenza A. Chest x-ray shows chronic COPD without any acute abnormalities. Based on his increased shortness of breath, he was placed on a BiPAP at a pressure of 12/5 cm of water with an FiO2 of 35%. Currently is feeling little bit better. No chest pain. He is a bit lethargic yet is arousable and follows commands and answers questions appropriately. He felt that he still smokes once in a while however has been smoking on a regular basis. No leukocytosis. Past Medical History Past Medical History: COPD, Pneumonia, Renal Disease, Respiratory Disorder, Sleep Apnea/CPAP/BIPAP Additional Past Medical History / Comment(s): Chronic hypoxic respiratory failure with home oxygen at 3L/NC, past respiratory failure with ET/vent/trach and peg tube, CPAP/oxygen at night, tracheobronchitis, bronchitis, elevated bl ood sugars with steroid use, kidney stones, osteopenia History of Any Multi-Drug Resistant Organisms: None Reported Past Surgical History: Hernia Repair, Tonsillectomy Additional Past Surgical History / Comment(s): R inguinal hernia repair, tracheostomy, peg tube. Past Anesthesia/Blood Transfusion Reactions: No Reported Reaction Additional Past Anesthesia/Blood Transfusion Reaction / Comment(s): no blood transfusions Past Psychological History: Anxiety Additional Psychological History / Comment(s): Pt resides with his spouse and their adult son. Pt has home oxygen and a CPap machine. He uses no assistive device. He drives. Smoking Status: Current some day smoker Past Alcohol Use History: None Reported Additional Past Alcohol Use History / Comment(s): started smoking at age 16 used to smoke 1.5 ppd, "very infrequent now"-since March 2018 Past Drug Use History: None Reported Additional Drug Use History / Comment(s): . - Past Family History Father Family Medical History: Cancer Additional Family Medical History / Comment(s): of lung cancer Mother Family Medical History: Asthma Medications and Allergies Home Medications Medication Instructions Recorded Confirmed Type Albuterol Sulfate [Proair Hfa] 2 puff INHALATION RT-TID PRN 07/28/16 04/01/19 History Alendronate Sodium [Fosamax] 70 mg PO DE LA CRUZ 07/28/16 04/01/19 History Theophylline Anhydrous [Uniphyl] 200 mg PO BID 12/20/16 04/01/19 History Ipratropium-Albuterol Nebulize 3 ml INHALATION RT-QID PRN 01/04/18 04/01/19 History [Duoneb 0.5 mg-3 mg/3 ml Soln] amLODIPine [Norvasc] 10 mg PO DAILY #30 tab 04/13/18 04/01/19 Rx Albuterol Nebulized [Ventolin 2.5 mg INHALATION RT-Q4H PRN 12/09/18 04/01/19 History Nebulized] Cyanocobalamin (Vitamin B-12) 5,000 mcg PO DAILY 12/09/18 04/01/19 History [Vitamin B-12] Vitamin B Complex 1 cap PO DAILY 12/09/18 04/01/19 History predniSONE 5 mg PO DAILY 12/09/18 04/01/19 History Azithromycin [Zithromax] 250 mg PO Q48H 04/01/19 04/01/19 History EPINEPHrine (Auto Inject) [Epipen] 0.3 mg IM ONCE PRN 04/01/19 04/01/19 History Fluticasone/Umeclidin/Vilanter 1 puff INHALATION RT-DAILY 04/01/19 04/01/19 History [Trelegy Ellipta 100-62.5-25] Loratadine [Claritin] 10 mg PO DAILY 04/01/19 04/01/19 History Multivit-Min/FA/Lycopen/Lutein 1 tab PO DAILY 04/01/19 04/01/19 History [Centrum Silver Tablet] Potassium Citrate [Urocit-K] 10 meq PO BID 04/01/19 04/01/19 History Allergies Allergy/AdvReac Type Severity Reaction Status Date / Time No Known Allergies Allergy Verified 04/01/19 10:23 Physical Exam Vitals: Vital Signs Temp Pulse Pulse Resp BP BP Pulse Ox 04/01/19 13:16 112 H 04/01/19 13:12 97.7 F 115 H 25 H 135/96 98 04/01/19 13:05 97.7 F 115 H 25 H 135/96 04/01/19 13:04 112 H 04/01/19 12:27 98 F 04/01/19 12:00 104 H 28 H 128/94 98 04/01/19 11:00 106 H 29 H 129/104 98 04/01/19 10:00 114 H 25 H 112/87 100 04/01/19 09:41 117 H 28 H 126/84 99 04/01/19 09:04 112 H 04/01/19 08:52 118 H 04/01/19 08:49 97.5 F L 121 H 30 H 126/84 99 Intake and Output 03/31/19 04/01/19 04/01/19 22:59 06:59 14:59 Other: Voiding Method Toilet Weight 70.307 kg The patient is awake. Is currently tolerating a BiPAP at a full face mask. His sickness of the machine. He is not using excessive muscle breathing. Is able to speak up short sentences. Head exam was generally normal. There was no scleral icterus or corneal arcus. Mucous membranes were moist. Neck was supple and without jugular venous distension, thyromegaly, or carotid bruits. Carotids were easily palpable bilaterally. There was no adenopathy. The patient has a tracheostomy scar over the anterior neck area and the scar is nicely healed. Lungs sounds are diminished bilaterally along with some few scattered expiratory wheezes heard throughout the lung joseph and there is pronation of expiratory phase of breathing. Cardiac exam revealed the PMI to be normally situated and sized. The rhythm was regular and no extrasystoles were noted during several minutes of auscultation. The first and second heart sounds were normal and physiologic splitting of the second heart sound was noted. There were no murmurs, rubs, clicks, or gallops. Abdominal exam revealed normal bowel sounds. The abdomen was soft, non-tender, and without masses, organomegaly, or appreciable enlargement of the abdominal aorta. Examination of the extremities revealed easily palpable radial, femoral and pedal pulses. There was no cyanosis, clubbing or edema. Examination of the skin revealed no evidence of significant rashes, suspicious appearing nevi or other concerning lesions. Neurologically awake and alert and following commands and answering questions appropriately. Results - Laboratory Findings CBC and BMP: 04/01/19 09:05 04/01/19 09:05 Abnormal lab findings: Abnormal Labs 04/01/19 04/01/19 09:05 09:05 Chloride 97 L Influenza Type A RNA Detected H Assessment and Plan Plan: 1 acute COPD exacerbation secondary to an acute influenza infection and the patient was checked positive for influenza A and he was started on Tamiflu. Note that he had a similar infection back in March 2018 is was complicated by development of the theta dependent respiratory failure. Currently his on a BiPAP at a pressure of 12/5 with an FiO2 of 35%. Chest x-ray 7 acute pulmonary infiltrates. The patient is feeling somewhat better while being treated with a combination of bronchodilators and steroids. 2 acute on top of chronic hypoxic respiratory failure, secondary to above 3 advanced COPD at baseline with FEV1 of less than 30% of predicted 4 previous hospitalization for COPD exacerbations and back in March 2018 the patient had failure to wean off the mechanical ventilator and he required tracheostomy and PEG tube insertion and subsequently he did improve and a tracheostomy tube has been removed since. 5 smoker 6 chronic anxiety 7 chronic depression 8 obstructive sleep apnea maintained on CPAP at a pressure of 9 cm of water on outpatient basis. The patient unable to tolerate CPAP. He does not have a BiPAP unit at home. Plan Optimize COPD with a combination of DuoNeb nebulized she was around the clock, Perforomist and Pulmicort neb last treatment twice a day, IV Solu-Medrol, Tamiflu, droplet isolation, empiric antibiotic coverage with Levaquin, and I will continue BiPAP for respiratory support at a pressure of 12/5 cm of water. He should be able to continue the BiPAP throughout the day today and we'll given a break to moderate his condition is improved. The patient has advanced lung disease. His S1 disorder 30% of predicted. He has had multiple hospitalizations the past for COPD exacerbation and he had ventilator dependent respiratory failure for a similar presentation back in March 2018..
[2019-04-01] MEDS: HEPARIN SODIUM,PORCINE 5,000 UNIT/ML 1 ML VIAL SQ SCH ×2 (17:44→23:46)
[2019-04-01] MEDS: guaiFENesin-DM 100-10MG/5ML 10 ML CUP PO PRN (18:20)
[2019-04-01] MEDS: BUDESONIDE 1 MG/2 ML NEBU INHALATION SCH (20:06)
[2019-04-01] MEDS: FORMOTEROL FUMARATE 20 MCG/2 ML NEBU INHALATION SCH (20:06)
[2019-04-01] MEDS: FAMOTIDINE 20 MG TAB PO SCH (20:37)
[2019-04-02] MEDS: methylPREDNISolone SOD SUCCI 125 MG/2 ML VIAL IV SCH (06:18)
[2019-04-02 06:26] LABS: Glucose,Whole Blood 167 mg/dL (75-99)
[2019-04-02] MEDS: FAMOTIDINE 20 MG TAB PO SCH ×2 (07:58→21:01)
[2019-04-02] MEDS: HEPARIN SODIUM,PORCINE 5,000 UNIT/ML 1 ML VIAL SQ SCH ×3 (07:59→23:05)
[2019-04-02] MEDS: LORATADINE 10 MG TAB PO SCH (07:59)
[2019-04-02] MEDS: THEOPHYLLINE 24 HOUR 400 MG CAP.ER.24H PO SCH (07:59)
[2019-04-02] MEDS: OSELTAMIVIR 75 MG CAP PO SCH ×2 (07:59→21:01)
[2019-04-02] MEDS: amLODIPine 10 MG TAB PO SCH (07:59)
[2019-04-02] MEDS ORDERED: SYMBICORT 80-4.5 MCG INHALER INHALATION SCH (08:00)
[2019-04-02] MEDS: FORMOTEROL FUMARATE 20 MCG/2 ML NEBU INHALATION SCH ×2 (08:32→20:00)
[2019-04-02] MEDS: IPRATROPIUM-ALBUTEROL 3 ML NEB INHALATION SCH ×4 (08:32→20:00)
[2019-04-02] MEDS: BUDESONIDE 1 MG/2 ML NEBU INHALATION SCH ×2 (08:32→20:00)
[2019-04-02] MEDS: LEVOFLOXACIN 750MG-D5W PMX 750 MG in DEXTROSE/WATER 1 150ML.BAG IVPB SCH (08:52)
[2019-04-02] MEDS: ALPRAZolam 0.25 MG TAB PO PRN ×2 (08:52→21:01)
--- NOTE | 2019-04-02 10:30 | P.PN ---
Subjective 58-year-old with influenza and COPD exacerbation can use to be on BiPAP patient is wheezing significantly today as compared to no air movement. Constitutional: Denied any fatigue denied any fever. Cardio vascular: denied any chest pain, palpitations Gastrointestinal denied any nausea vomiting Pulmonary: significant x-ray wheezing on exam and severe shortness of breath Neurologic denied any new focal deficits All inpatient medications were reviewed and appropriate changes in these medications as dictated in the interval history and assessment and plan. Objective - Vital Signs Vital signs: Vital Signs Temp 97.9 F 04/02/19 08:00 Pulse 100 04/02/19 09:00 Resp 26 H 04/02/19 08:00 BP 123/73 04/02/19 08:00 Pulse Ox 97 04/02/19 08:00 Intake & Output 04/01/19 04/02/19 04/02/19 18:59 06:59 18:59 Intake Total 240 Output Total 500 500 450 Balance -500 -500 -210 Weight 70.307 kg 70 kg Intake: Oral 240 Output: Urine 500 500 450 Other: Voiding Method Toilet Toilet # Voids 2 1 1 # Bowel Movements 0 - Exam PHYSICAL EXAMINATION: GENERAL: The patient is alert and oriented x3, not in any acute distress. Well developed, well nourished. HEENT: Pupils are round and equally reacting to light. EOMI. No scleral icterus. No conjunctival pallor. Normocephalic, atraumatic. No pharyngeal erythema. No thyromegaly. CARDIOVASCULAR: S1 and S2 present. No murmurs, rubs, or gallops. PULMONARY: slightly wheezing with decreased air entry into bilateral lung joseph improved compared to yesterday as he was not having any movement yesterday still on BiPAP not using accessory muscle breathing ABDOMEN: Soft, nontender, nondistended, normoactive bowel sounds. No palpable o rganomegaly. MUSCULOSKELETAL: No joint swelling or deformity. EXTREMITIES: No cyanosis, clubbing, or pedal edema. NEUROLOGICAL: Gross neurological examination did not reveal any focal deficits. SKIN: No rashes. 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 COPD is respiratory data atby influenza nicotine cessation counseling was provided patient is also on theophylline which will be resumed. Continue BiPAP wean off as tolerated -Tracheobronchitis: Secondary to influenza. -Sleep apnea: Uses CPAP machine which will be resumed and continued -Anxiety disorder -Hypertension: On amlodipine which will be resumed and continued -DVT prophylaxis with subcutaneous heparin prophylaxis with Pepcid
[2019-04-02 11:38] LABS: Glucose,Whole Blood 236 mg/dL (75-99)
[2019-04-02] MEDS: methylPREDNISolone SOD SUCCI 40 MG/ML 1 ML VIAL IV SCH ×3 (12:13→23:05)
[2019-04-02] MEDS: INSULIN ASPART (NovoLOG) 100 UNIT/ML VIAL SQ SCH ×3 (12:14→20:58)
--- NOTE | 2019-04-02 12:29 | P.PN ---
Subjective Progress Note Date: 04/02/19 Is a very pleasant 58-year-old male patient with advanced COPD chronic oxygen dependent and he has also chronic hypoxic respiratory failure maintained on oxygen with an FEV1 of 30% of predicted. He has had a acute COPD exacerbation related to influenza infection back in March 2018. He subsequently got to be admitted in December 2018 for another COPD exacerbation. He is currently on Trelegy one inhalation a day and theophylline and albuterol HFA and DuoNeb on an as-needed basis. He also has obstructive sleep apnea with an AHI of 23 and he is on a CPAP pressure of 9 cm of water and he was unable to use the CPAP for some time. He was having problems with using CPAP. He felt he would do better with a BiPAP as the patient was treated with BiPAP on previous hospital admissions and he was able to tolerated it without any major difficulties. He takes Xanax for chronic anxiety. The patient came in yesterday to the emergency department having difficulties with breathing. He was positive for influenza A. Chest x-ray shows chronic COPD without any acute abnormalities. Based on his increased shortness of breath, he was placed on a BiPAP at a pressure of 12/5 cm of water with an FiO2 of 35%. Currently is feeling little bit better. No chest pain. He is a bit lethargic yet is arousable and follows commands and answers questions appropriately. He felt that he still smokes once in a while however has been smoking on a regular basis. No leukocytosis. On today's evaluation of 04/02/2019, the patient is still struggling with his breathing. He remains on a BiPAP at a pressure of 12/5 cm of water with an FiO2 of 35%. He shortness of breath bronchospastic and wheezy. Limited improvement over the past 12-24 hours. No fever. No chills. He remains on Tamiflu. He remains on bronchodilators. He remains on systemic steroids. No fever. No altered mentation. Unable to bring up much sputum. He is generating a tidal volume of above 500 one on the BiPAP without any significant leaks. Minute ventilation is around 14 L per minute. No desaturations. He was given brief ti me off the BiPAP which she was unable to tolerate and had to be placed back on the BiPAP treatment. Objective - Vital Signs Vital signs: Vital Signs Temp 97.4 F L 04/02/19 11:27 Pulse 128 H 04/02/19 12:19 Resp 22 04/02/19 11:30 BP 120/72 04/02/19 11:27 Pulse Ox 99 04/02/19 11:27 Intake & Output 04/01/19 04/02/19 04/02/19 18:59 06:59 18:59 Intake Total 240 Output Total 500 500 950 Balance -500 -500 -710 Weight 70.307 kg 70 kg Intake: Oral 240 Output: Urine 500 500 950 Other: Voiding Method Toilet Toilet # Voids 2 1 1 # Bowel Movements 0 - Exam The patient is awake. Is currently tolerating a BiPAP at a full face mask. His sickness of the machine. He is not using excessive muscle breathing. Is able to speak up short sentences. Head exam was generally normal. There was no scleral icterus or corneal arcus. Mucous membranes were moist. Neck was supple and without jugular venous distension, thyromegaly, or carotid bruits. Carotids were easily palpable bilaterally. There was no adenopathy. The patient has a tracheostomy scar over the anterior neck area and the scar is nicely healed. Lungs sounds are diminished bilaterally along with some few scattered expiratory wheezes heard throughout the lung joseph and there is pronation of expiratory phase of breathing. Cardiac exam revealed the PMI to be normally situated and sized. The rhythm was regular and no extrasystoles were noted during several minutes of auscultation. The first and second heart sounds were normal and physiologic splitting of the second heart sound was noted. There were no murmurs, rubs, clicks, or gallops. Abdominal exam revealed normal bowel sounds. The abdomen was soft, non-tender, and without masses, organomegaly, or appreciable enlargement of the abdominal aorta. Examination of the extremities revealed easily palpable radial, femoral and pedal pulses. There was no cyanosis, clubbing or edema. Examination of the skin revealed no evidence of significant rashes, suspicious appearing nevi or other concerning lesions. Neurologically awake and alert and following commands and answering questions appropriately. - Labs CBC & Chem 7: 04/01/19 09:05 04/01/19 09:05 Labs: Abnormal Lab Results - Last 24 Hours (Table) 04/02/19 04/02/19 Range/Units 06:24 11:36 POC Glucose (mg/dL) 167 H 236 H (75-99) mg/dL Microbiology - Last 24 Hours (Table) 04/01/19 09:05 Blood Culture - Preliminary Blood No Growth after 24 hours Assessment and Plan Plan: 1 acute COPD exacerbation secondary to an acute influenza infection and the patient was checked positive for influenza A and he was started on Tamiflu. Note that he had a similar infection back in March 2018 is was complicated by development of the theta dependent respiratory failure. Currently his on a BiPAP at a pressure of 12/5 with an FiO2 of 35%. Chest x-ray no acute pulmonary infiltrates. The patient is feeling somewhat better while being treated with a combination of bronchodilators and steroids. Clinically the patient continues to be symptomatic and BiPAP dependent for now. Limited improvement over the past 12 hours. Remains on bronchodilators and the mid and systemic steroids. Also on Tamiflu and Levaquin. 2 acute on top of chronic hypoxic respiratory failure, secondary to above 3 advanced COPD at baseline with FEV1 of less than 30% of predicted 4 previous hospitalization for COPD exacerbations and back in March 2018 the patient had failure to wean off the mechanical ventilator and he required tracheostomy and PEG tube insertion and subsequently he did improve and a trach eostomy tube has been removed since. 5 smoker 6 chronic anxiety 7 chronic depression 8 obstructive sleep apnea maintained on CPAP at a pressure of 9 cm of water on outpatient basis. The patient unable to tolerate CPAP. He does not have a BiPAP unit at home. Plan Decrease nighttime to 0.8 ms Keep BiPAP pressures at 12/5 cm of water with an FiO2 of 35% Continue the rest of bronchodilators and steroids and Tamiflu on Levaquin Condition is still guarded and will continue following up this patient very closely.
[2019-04-02] MEDS: guaiFENesin-DM 100-10MG/5ML 10 ML CUP PO PRN (16:17)
[2019-04-02 16:27] LABS: Glucose,Whole Blood 203 mg/dL (75-99)
[2019-04-02 20:26] LABS: Glucose,Whole Blood 143 mg/dL (75-99)
[2019-04-02] MEDS: IPRATROPIUM-ALBUTEROL 3 ML NEB INHALATION PRN (23:19)
[2019-04-03] MEDS: IPRATROPIUM-ALBUTEROL 3 ML NEB INHALATION PRN (03:30)
[2019-04-03 06:13] LABS: Glucose,Whole Blood 134 mg/dL (75-99)
[2019-04-03] MEDS: INSULIN ASPART (NovoLOG) 100 UNIT/ML VIAL SQ SCH ×4 (06:15→20:53)
[2019-04-03] MEDS: methylPREDNISolone SOD SUCCI 40 MG/ML 1 ML VIAL IV SCH ×4 (06:51→23:55)
[2019-04-03] MEDS: FORMOTEROL FUMARATE 20 MCG/2 ML NEBU INHALATION SCH ×2 (08:32→20:11)
[2019-04-03] MEDS: IPRATROPIUM-ALBUTEROL 3 ML NEB INHALATION SCH ×4 (08:32→20:11)
[2019-04-03] MEDS: BUDESONIDE 1 MG/2 ML NEBU INHALATION SCH ×2 (08:32→20:11)
[2019-04-03] MEDS: amLODIPine 10 MG TAB PO SCH (09:04)
[2019-04-03] MEDS: HEPARIN SODIUM,PORCINE 5,000 UNIT/ML 1 ML VIAL SQ SCH ×3 (09:04→23:55)
[2019-04-03] MEDS: THEOPHYLLINE 24 HOUR 400 MG CAP.ER.24H PO SCH (09:05)
[2019-04-03] MEDS: ALPRAZolam 0.25 MG TAB PO PRN ×3 (09:05→22:24)
[2019-04-03] MEDS: LEVOFLOXACIN 750MG-D5W PMX 750 MG in DEXTROSE/WATER 1 150ML.BAG IVPB SCH (09:05)
[2019-04-03] MEDS: LORATADINE 10 MG TAB PO SCH (09:05)
[2019-04-03] MEDS: OSELTAMIVIR 75 MG CAP PO SCH ×2 (09:05→21:04)
[2019-04-03] MEDS: FAMOTIDINE 20 MG TAB PO SCH ×2 (09:05→21:04)
[2019-04-03] MEDS: guaiFENesin-DM 100-10MG/5ML 10 ML CUP PO PRN ×2 (10:03→21:04)
--- NOTE | 2019-04-03 11:09 | P.PN ---
Subjective 58-year-old with influenza and COPD exacerbation can use to be on BiPAP patient is wheezing significantly today as compared to no air movement. 04/03/2019 Patient is still wheezing no syncope, and compared to yesterday although patient was on 4 L all night and today morning patient is back on BiPAP no overall he is improving and is slow improvement Constitutional: Denied any fatigue denied any fever. Cardio vascular: denied any chest pain, palpitations Gastrointestinal denied any nausea vomiting Pulmonary: significant x-ray wheezing on exam and severe shortness of breath Neurologic denied any new focal deficits All inpatient medications were reviewed and appropriate changes in these medications as dictated in the interval history and assessment and plan. Objective - Vital Signs Vital signs: Vital Signs Temp 97.6 F 04/03/19 08:00 Pulse 96 04/03/19 08:59 Resp 22 04/03/19 08:00 BP 158/84 04/03/19 08:00 Pulse Ox 96 04/03/19 08:00 Intake & Output 04/02/19 04/03/19 04/03/19 18:59 06:59 18:59 Intake Total 720 240 Output Total 1150 125 Balance -430 -125 240 Weight 71 kg Intake: Oral 720 240 Output: Urine 1150 125 Other: Voiding Method Toilet # Voids 1 1 - Exam PHYSICAL EXAMINATION: GENERAL: The patient is alert and oriented x3, not in any acute distress. Well developed, well nourished. HEENT: Pupils are round and equally reacting to light. EOMI. No scleral icterus. No conjunctival pallor. Normocephalic, atraumatic. No pharyngeal erythema. No th yromegaly. CARDIOVASCULAR: S1 and S2 present. No murmurs, rubs, or gallops. PULMONARY: slightly wheezing with decreased air entry into bilateral lung joseph improved compared to yesterday as he was not having any movement yesterday still on BiPAP not using accessory muscle breathing ABDOMEN: Soft, nontender, nondistended, normoactive bowel sounds. No palpable organomegaly. MUSCULOSKELETAL: No joint swelling or deformity. EXTREMITIES: No cyanosis, clubbing, or pedal edema. NEUROLOGICAL: Gross neurological examination did not reveal any focal deficits. SKIN: No rashes. - Labs CBC & Chem 7: 04/01/19 09:05 04/01/19 09:05 Labs: Abnormal Lab Results - Last 24 Hours (Table) 04/02/19 04/02/19 04/02/19 Range/Units 11:36 16:25 20:17 POC Glucose (mg/dL) 236 H 203 H 143 H (75-99) mg/dL 04/03/19 Range/Units 06:11 POC Glucose (mg/dL) 134 H (75-99) mg/dL Microbiology - Last 24 Hours (Table) 04/01/19 09:05 Blood Culture - Preliminary Blood No Growth after 24 hours Assessment and Plan Plan: -Acute on chronic hypercapnic respiratory failure secondary to COPD exacerbation: Patient was started on systemic steroids and Tamiflu which will be continued may not require levofloxacin but 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 COPD is respiratory data atby influenza nicotine cessation counseling was provided patient is also on theophylline which will be resumed. Continue BiPAP wean off as tolerated -Tracheobronchitis: Secondary to influenza. -Sleep apnea: Uses CPAP machine which will be resumed and continued -Anxiety disorder -Hypertension: On amlodipine which will be resumed and continued -DVT prophylaxis with subcutaneous heparin prophylaxis with Pepcid
[2019-04-03 11:24] LABS: Glucose,Whole Blood 153 mg/dL (75-99)
--- NOTE | 2019-04-03 12:56 | P.PN ---
Subjective Progress Note Date: 04/03/19 Is a very pleasant 58-year-old male patient with advanced COPD chronic oxygen dependent and he has also chronic hypoxic respiratory failure maintained on oxygen with an FEV1 of 30% of predicted. He has had a acute COPD exacerbation related to influenza infection back in March 2018. He subsequently got to be admitted in December 2018 for another COPD exacerbation. He is currently on Trelegy one inhalation a day and theophylline and albuterol HFA and DuoNeb on an as-needed basis. He also has obstructive sleep apnea with an AHI of 23 and he is on a CPAP pressure of 9 cm of water and he was unable to use the CPAP for some time. He was having problems with using CPAP. He felt he would do better with a BiPAP as the patient was treated with BiPAP on previous hospital admissions and he was able to tolerated it without any major difficulties. He takes Xanax for chronic anxiety. The patient came in yesterday to the emergency department having difficulties with breathing. He was positive for influenza A. Chest x-ray shows chronic COPD without any acute abnormalities. Based on his increased shortness of breath, he was placed on a BiPAP at a pressure of 12/5 cm of water with an FiO2 of 35%. Currently is feeling little bit better. No chest pain. He is a bit lethargic yet is arousable and follows commands and answers questions appropriately. He felt that he still smokes once in a while however has been smoking on a regular basis. No leukocytosis. On today's evaluation of 04/02/2019, the patient is still struggling with his breathing. He remains on a BiPAP at a pressure of 12/5 cm of water with an FiO2 of 35%. He shortness of breath bronchospastic and wheezy. Limited improvement over the past 12-24 hours. No fever. No chills. He remains on Tamiflu. He remains on bronchodilators. He remains on systemic steroids. No fever. No altered mentation. Unable to bring up much sputum. He is generating a tidal volume of above 500 one on the BiPAP without any significant leaks. Minute ventilation is around 14 L per minute. No desaturations. He was given brief ti me off the BiPAP which she was unable to tolerate and had to be placed back on the BiPAP treatment. Today's evaluation of 04/03/2019 the patient is feeling better. Less short of breath. He was able to give himself some breaks off the BiPAP. The BiPAP setting is 12/5 and is currently on oxygen at 35% FiO2. Whenever off the BiPAP, he goes on 4 L of oxygen by nasal cannula. His speech is improved. He is able to speak longer sentences. He still having episodic cough. On examination, he is able to move much better air and is improved air entry bilaterally. No altered mentation. No nausea. No vomiting. No diarrhea. No abdominal pain. No fever. No chills. No skin rashes. Objective - Vital Signs Vital signs: Vital Signs Temp 97.6 F 04/03/19 08:00 Pulse 108 H 04/03/19 12:15 Resp 24 04/03/19 11:13 BP 119/74 04/03/19 11:10 Pulse Ox 97 04/03/19 11:10 Intake & Output 04/02/19 04/03/19 04/03/19 18:59 06:59 18:59 Intake Total 720 240 Output Total 1150 125 Balance -430 -125 240 Weight 71 kg Intake: Oral 720 240 Output: Urine 1150 125 Other: Voiding Method Toilet # Voids 1 1 - Exam The patient is awake. Is currently tolerating a BiPAP at a full face mask. His sickness of the machine. He is not using excessive muscle breathing. Is able to speak up short sentences. He is less short of breath compared to yesterday. He is able to speak longer sentences without having any major difficulties. Wh ile off the BiPAP he was on 4 L of oxygen by nasal cannula. He continues to alternate. Head exam was generally normal. There was no scleral icterus or corneal arcus. Mucous membranes were moist. Neck was supple and without jugular venous distension, thyromegaly, or carotid bruits. Carotids were easily palpable bilaterally. There was no adenopathy. The patient has a tracheostomy scar over the anterior neck area and the scar is nicely healed. Lungs sounds are diminished bilaterally along with some few scattered expiratory wheezes heard throughout the lung joseph and there is pronation of expiratory phase of breathing. Cardiac exam revealed the PMI to be normally situated and sized. The rhythm was regular and no extrasystoles were noted during several minutes of auscultation. The first and second heart sounds were normal and physiologic splitting of the second heart sound was noted. There were no murmurs, rubs, clicks, or gallops. Abdominal exam revealed normal bowel sounds. The abdomen was soft, non-tender, and without masses, organomegaly, or appreciable enlargement of the abdominal aorta. Examination of the extremities revealed easily palpable radial, femoral and pedal pulses. There was no cyanosis, clubbing or edema. Examination of the skin revealed no evidence of significant rashes, suspicious appearing nevi or other concerning lesions. Neurologically awake and alert and following commands and answering questions appropriately. - Labs CBC & Chem 7: 04/01/19 09:05 04/01/19 09:05 Labs: Abnormal Lab Results - Last 24 Hours (Table) 04/02/19 04/02/19 04/03/19 Range/Units 16:25 20:17 06:11 POC Glucose (mg/dL) 203 H 143 H 134 H (75-99) mg/dL 04/03/19 Range/Units 11:22 POC Glucose (mg/dL) 153 H (75-99) mg/dL Microbiology - Last 24 Hours (Table) 04/01/19 09:05 Blood Culture - Preliminary Blood No Growth after 48 hours Assessment and Plan Plan: 1 acute COPD exacerbation secondary to an acute influenza infection and the patient was checked positive for influenza A and he was started on Tamiflu. Note that he had a similar infection back in March 2018 is was complicated by development of the theta dependent respiratory failure. Currently his on a BiPAP at a pressure of 12/5 with an FiO2 of 35%. Chest x-ray no acute pulmonary infiltrates. The patient is improving. His alternating with dizziness BiPAP and 4 L of oxygen by nasal cannula. Is able to speak of longer sentences. His shortness of breath and cough is also subsided. 2 acute on top of chronic hypoxic respiratory failure, secondary to above 3 advanced COPD at baseline with FEV1 of less than 30% of predicted 4 previous hospitalization for COPD exacerbations and back in March 2018 the patient had failure to wean off the mechanical ventilator and he required tracheostomy and PEG tube insertion and subsequently he did improve and a tracheostomy tube has been removed since. 5 smoker 6 chronic anxiety 7 chronic depression 8 obstructive sleep apnea maintained on CPAP at a pressure of 9 cm of water on outpatient basis. The patient unable to tolerate CPAP. He does not have a BiPAP unit at home. Plan continue alternating with the BiPAP and the oxygen by nasal cannula We'll adjustments on the BiPAP machine was done Clinically improving Continue the rest of bronchodilators and steroids and Tamiflu on Levaquin Condition is still guarded and will continue following up this patient very closely.
[2019-04-03 16:52] LABS: Glucose,Whole Blood 238 mg/dL (75-99)
[2019-04-03 20:21] LABS: Glucose,Whole Blood 129 mg/dL (75-99)
[2019-04-04] MEDS: methylPREDNISolone SOD SUCCI 40 MG/ML 1 ML VIAL IV SCH ×3 (05:48→17:20)
[2019-04-04 06:29] LABS: Glucose,Whole Blood 137 mg/dL (75-99)
[2019-04-04] MEDS: INSULIN ASPART (NovoLOG) 100 UNIT/ML VIAL SQ SCH ×4 (06:43→21:14)
[2019-04-04] MEDS: IPRATROPIUM-ALBUTEROL 3 ML NEB INHALATION SCH ×4 (07:11→19:05)
[2019-04-04] MEDS: FORMOTEROL FUMARATE 20 MCG/2 ML NEBU INHALATION SCH ×2 (07:11→19:05)
[2019-04-04] MEDS: BUDESONIDE 1 MG/2 ML NEBU INHALATION SCH ×2 (07:11→19:05)
[2019-04-04] MEDS: HEPARIN SODIUM,PORCINE 5,000 UNIT/ML 1 ML VIAL SQ SCH ×2 (08:32→16:10)
[2019-04-04] MEDS: FAMOTIDINE 20 MG TAB PO SCH ×2 (09:04→19:56)
[2019-04-04] MEDS: LEVOFLOXACIN 750MG-D5W PMX 750 MG in DEXTROSE/WATER 1 150ML.BAG IVPB SCH (09:04)
[2019-04-04] MEDS: THEOPHYLLINE 24 HOUR 400 MG CAP.ER.24H PO SCH (09:04)
[2019-04-04] MEDS: OSELTAMIVIR 75 MG CAP PO SCH ×2 (09:04→19:56)
[2019-04-04] MEDS: amLODIPine 10 MG TAB PO SCH (09:04)
--- NOTE | 2019-04-04 11:29 | P.PN ---
Subjective 58-year-old with influenza and COPD exacerbation can use to be on BiPAP patient is wheezing significantly today as compared to no air movement. 04/03/2019 Patient is still wheezing no syncope, and compared to yesterday although patient was on 4 L all night and today morning patient is back on BiPAP no overall he is improving and is slow improvement 04/04/2019 Patient's wheezing significantly improved patient will be switched and asking cannula oxygen today Constitutional: Denied any fatigue denied any fever. Cardio vascular: denied any chest pain, palpitations Gastrointestinal denied any nausea vomiting Pulmonary: Shortness of breath significantly improved Neurologic denied any new focal deficits All inpatient medications were reviewed and appropriate changes in these medications as dictated in the interval history and assessment and plan. Objective - Vital Signs Vital signs: Vital Signs Temp 97.7 F 04/04/19 08:30 Pulse 96 04/04/19 11:02 Resp 18 04/04/19 08:30 BP 126/79 04/04/19 08:30 Pulse Ox 99 04/04/19 08:30 Intake & Output 04/03/19 04/04/19 04/04/19 18:59 06:59 18:59 Intake Total 840 240 0 Output Total 1050 Balance 840 -810 0 Weight 70.9 kg Intake: Oral 840 240 0 Output: Urine 1050 Other: Voiding Method Urinal # Voids 1 - Exam PHYSICAL EXAMINATION: GENERAL: The patient is alert and oriented x3, not in any acute distress. Well developed, well nourished. HEENT: Pupils are round and equally reacting to light. EOMI. No scleral icterus. No conjunctival pallor. Normocephalic, atraumatic. No pharyngeal erythema. No thyromegaly. CARDIOVASCULAR: S1 and S2 present. No murmurs, rubs, or gallops. PULMONARY: Air entry improved no significant wheezing ABDOMEN: Soft, nontender, nondistended, normoactive bowel sounds. No palpable organomegaly. MUSCULOSKELETAL: No joint swelling or deformity. EXTREMITIES: No cyanosis, clubbing, or pedal edema. NEUROLOGICAL: Gross neurological examination did not reveal any focal deficits. SKIN: No rashes. 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 COPD he is precipitated by by influenza nicotine cessation counseling was provided patient is also on theophylline which will be resumed. Patient BiPAP will be switched to nostril cannula oxygen -Tracheobronchitis: Secondary to influenza. -Sleep apnea: Uses CPAP machine which will be resumed and continued -Anxiety disorder -Hypertension: On amlodipine which will be resumed and continued -DVT prophylaxis with subcutaneous heparin prophylaxis with Pepcid
[2019-04-04 11:31] LABS: Glucose,Whole Blood 129 mg/dL (75-99)
[2019-04-04] MEDS: LORATADINE 10 MG TAB PO SCH (12:03)
--- NOTE | 2019-04-04 12:59 | P.PN ---
Subjective Progress Note Date: 04/04/19 On O2 2019 patient seen in follow-up on selective care unit, he has been wearing BiPAP most of the time with FiO2 of 35%, he states his breathing is improved, he is slightly less dyspneic and bronchospastic, patient is still significantly short of breath with any exertion. He is on a combination of Ta miflu and Levaquin, IV steroids and nebulized bronchodilators, he is afebrile, hemodynamically patient is stable, he has been able to come off the BiPAP for short periods of time for meals. No acute events overnight,slowly improving Objective - Vital Signs Vital signs: Vital Signs Temp 97.7 F 04/04/19 12:00 Pulse 100 04/04/19 12:00 Resp 20 04/04/19 12:00 BP 140/84 04/04/19 12:00 Pulse Ox 99 04/04/19 12:00 Intake & Output 04/03/19 04/04/19 04/04/19 18:59 06:59 18:59 Intake Total 840 240 0 Output Total 1050 Balance 840 -810 0 Weight 70.9 kg Intake: Oral 840 240 0 Output: Urine 1050 Other: Voiding Method Urinal # Voids 1 0 # Bowel Movements 0 - Exam GENERAL EXAM: Alert, very pleasant, 58-year-old white male, BiPAP support, with FiO2 of 35% comfortable in no apparent distress. Patient is mildly dyspneic with conversation, and moderately dyspneic with exertion HEAD: Normocephalic/atraumatic. EYES: Normal reaction of pupils, equal size. Conjunctiva pink, sclera white. NOSE: Clear with pink turbinates. THROAT: No erythema or exudates. NECK: No masses, no JVD, no thyroid enlargement, no adenopathy. CHEST: No chest wall deformity. Symmetrical expansion. LUNGS: Diminished air entry with no crackles, wheeze, rhonchi or dullness. CVS: Regular rate and rhythm, normal S1 and S2, no gallops, no murmurs, no rubs ABDOMEN: Soft, nontender. No hepatosplenomegaly, normal bowel sounds, no guarding or rigidity. EXTREMITIES: No clubbing, no edema, no cyanosis, 2+ pulses and upper and lower extremities. MUSCULOSKELETAL: Muscle strength and tone normal. SPINE: No scoliosis or deformity SKIN: No rashes CENTRAL NERVOUS SYSTEM: Alert and oriented -3. No focal deficits, tone is normal in all 4 extremities. PSYCHIATRIC: Alert and oriented -3. Appropriate affect. Intact judgment and insight. - Labs CBC & Chem 7: 04/01/19 09:05 04/01/19 09:05 Labs: Abnormal Lab Results - Last 24 Hours (Table) 04/03/19 04/03/19 04/04/19 Range/Units 16:51 20:19 06:27 POC Glucose (mg/dL) 238 H 129 H 137 H (75-99) mg/dL 04/04/19 Range/Units 11:29 POC Glucose (mg/dL) 129 H (75-99) mg/dL Microbiology - Last 24 Hours (Table) 04/01/19 09:05 Blood Culture - Preliminary Blood No Growth after 72 hours Assessment and Plan Plan: Assessment: 1 acute COPD exacerbation secondary to an acute influenza infection and the patient was checked positive for influenza A and he was started on Tamiflu. Note that he had a similar infection back in March 2018 is was complicated by development of the theta dependent respiratory failure. Currently his on a BiPAP at a pressure of 12/5 with an FiO2 of 35%. Chest x-ray no acute pulmonary infiltrates. The patient is improving. His alternating with dizziness BiPAP and 4 L of oxygen by nasal cannula. Is able to speak of longer sentences. His shortness of breath and cough is also subsided. 2 acute on top of chronic hypoxic respiratory failure, secondary to above 3 advanced COPD at baseline with FEV1 of less than 30% of predicted 4 previous hospitalization for COPD exacerbations and back in March 2018 the patient had failure to wean off the mechanical ventilator and he required tracheostomy and PEG tube insertion and subsequently he did improve and a tracheostomy tube has been removed since. 5 smoker 6 chronic anxiety 7 chronic depression 8 obstructive sleep apnea maintained on CPAP at a pressure of 9 cm of water on outpatient basis. The patient unable to tolerate CPAP. He does not have a BiPAP unit at home. Plan: Continue current medical treatment, may continue BiPAP support as needed for respiratory fatigue and dyspnea, overall patient states slowly improving, but still quite dyspneic with any exertion, he is tolerating nasal cannula trials, he has been afebrile, will continue a common issue of Levaquin and Tamiflu, current dose IV steroids and nebulized bronchodilators, nicotine to closely follow I performed a history & physical examination of the patient and discussed their management with my nurse practitioner, Gay Fiore. I reviewed the nurse practitioner's note and agree with the documented findings and plan of care. Lung sounds are positive for diminished breath sounds. The findings and the impression was discussed with the patient. I attest to the documentation by the nurse practitioner. Time with Patient: Less than 30
[2019-04-04] MEDS: ALPRAZolam 0.25 MG TAB PO PRN ×2 (13:16→19:56)
[2019-04-04] MEDS: guaiFENesin-DM 100-10MG/5ML 10 ML CUP PO PRN (14:39)
[2019-04-04 16:32] LABS: Glucose,Whole Blood 133 mg/dL (75-99)
[2019-04-04 20:32] LABS: Glucose,Whole Blood 240 mg/dL (75-99)
[2019-04-05] MEDS: methylPREDNISolone SOD SUCCI 40 MG/ML 1 ML VIAL IV SCH ×3 (00:46→17:41)
[2019-04-05] MEDS: HEPARIN SODIUM,PORCINE 5,000 UNIT/ML 1 ML VIAL SQ SCH ×3 (00:46→17:40)
[2019-04-05 06:11] LABS: Glucose,Whole Blood 133 mg/dL (75-99)
[2019-04-05] MEDS: INSULIN ASPART (NovoLOG) 100 UNIT/ML VIAL SQ SCH ×4 (06:40→21:10)
[2019-04-05] MEDS: IPRATROPIUM-ALBUTEROL 3 ML NEB INHALATION SCH ×4 (08:03→19:21)
[2019-04-05] MEDS: FORMOTEROL FUMARATE 20 MCG/2 ML NEBU INHALATION SCH ×2 (08:03→19:21)
[2019-04-05] MEDS: BUDESONIDE 1 MG/2 ML NEBU INHALATION SCH ×2 (08:03→19:18)
[2019-04-05] MEDS: LEVOFLOXACIN 750 MG TAB PO SCH (08:14)
[2019-04-05] MEDS: OSELTAMIVIR 75 MG CAP PO SCH ×2 (08:14→21:10)
[2019-04-05] MEDS: amLODIPine 10 MG TAB PO SCH (08:14)
[2019-04-05] MEDS: FAMOTIDINE 20 MG TAB PO SCH ×2 (08:14→21:10)
[2019-04-05] MEDS: LORATADINE 10 MG TAB PO SCH (08:14)
[2019-04-05] MEDS: THEOPHYLLINE 24 HOUR 400 MG CAP.ER.24H PO SCH (08:14)
[2019-04-05] MEDS: ALPRAZolam 0.25 MG TAB PO PRN ×2 (08:14→17:43)
[2019-04-05 12:09] LABS: Glucose,Whole Blood 136 mg/dL (75-99)
--- NOTE | 2019-04-05 14:14 | P.PN ---
Subjective Progress Note Date: 04/05/19 Principal diagnosis: 58-year-old with influenza and COPD exacerbation can use to be on BiPAP patient is wheezing significantly today as compared to no air movement. 04/03/2019 Patient is still wheezing no syncope, and compared to yesterday although patient was on 4 L all night and today morning patient is back on BiPAP no overall he is improving and is slow improvement 04/04/2019 Patient's wheezing significantly improved patient will be switched and asking cannula oxygen today Constitutional: Denied any fatigue denied any fever. Cardio vascular: denied any chest pain, palpitations Gastrointestinal denied any nausea vomiting Pulmonary: Shortness of breath significantly improved Neurologic denied any new focal deficits All inpatient medications were reviewed and appropriate changes in these medications as dictated in the interval history and assessment and plan. 04/05/2019 Patient is sitting up in the bed on the BiPAP as he was feeling pretty well and off of the BiPAP and took a shower this morning. Patient became extremely short of breath and anxious requiring BiPAP again. No acute overnight issues. Patient states that he is normally on 2-3 L of oxygen at home. No reports of chest pain or palpitations. No reports of nausea or vomiting. Patient is af ebrile. Will continue to monitor closely and attempt to slowly wean off BiPAP. Objective - Vital Signs Vital signs: Vital Signs Temp 97.8 F 04/05/19 08:18 Pulse 102 H 04/05/19 08:30 Resp 20 04/05/19 08:18 BP 130/64 04/05/19 08:18 Pulse Ox 98 04/05/19 08:18 Intake & Output 04/04/19 04/05/19 04/05/19 18:59 06:59 18:59 Intake Total 476 240 Output Total 120 Balance 476 -120 240 Weight 70.4 kg Intake: Oral 476 240 Output: Urine 120 Other: Voiding Method Urinal Urinal # Voids 3 1 0 # Bowel Movements 0 0 - Exam GENERAL: The patient is alert and oriented x3, not in any acute distress. Well developed, well nourished. HEENT: Pupils are round and equally reacting to light. EOMI. No scleral icterus. No conjunctival pallor. Normocephalic, atraumatic. No pharyngeal erythema. No thyromegaly. BiPAP mask noted CARDIOVASCULAR: S1 and S2 present. No murmurs, rubs, or gallops. PULMONARY: Diminished Air entry bilaterally with no significant wheezing noted on exam ABDOMEN: Soft, nontender, nondistended, normoactive bowel sounds. No palpable organomegaly. MUSCULOSKELETAL: No joint swelling or deformity. EXTREMITIES: No cyanosis, clubbing, or pedal edema. NEUROLOGICAL: Gross neurological examination did not reveal any focal deficits. SKIN: No rashes. - Labs CBC & Chem 7: 04/01/19 09:05 04/01/19 09:05 Labs: Abnormal Lab Results - Last 24 Hours (Table) 04/04/19 04/04/19 04/04/19 Range/Units 11:29 16:31 20:31 POC Glucose (mg/dL) 129 H 133 H 240 H (75-99) mg/dL 04/05/19 Range/Units 06:10 POC Glucose (mg/dL) 133 H (75-99) mg/dL Microbiology - Last 24 Hours (Table) 04/01/19 09:05 Blood Culture - Preliminary Blood No Growth after 72 hours Assessment and Plan Assessment: -Acute on chronic hypercapnic respiratory failure secondary to COPD exacerbation: Patient was started on systemic steroids and Tamiflu which will be continued may not require levofloxacin but will continue at this time. Pulmonary is following. COPD is precipitated by acute influenza infection. nicotine cessation counseling was provided patient is also on theophylline which will be resumed. Patient remains on BiPAP intermittently and will attempt to wean to his baseline of 2-3 L via nasal cannula -Tracheobronchitis: Secondary to influenza. -Sleep apnea: Uses CPAP machine which will be resumed and continued -Anxiety disorder -Hypertension: On amlodipine which will be resumed and continued -DVT prophylaxis with subcutaneous heparin prophylaxis with Pepcid
--- NOTE | 2019-04-05 14:36 | P.PN ---
Subjective Progress Note Date: 04/05/19 On O2 2019 patient seen in follow-up on selective care unit, he has been wearing BiPAP most of the time with FiO2 of 35%, he states his breathing is improved, he is slightly less dyspneic and bronchospastic, patient is still significantly short of breath with any exertion. He is on a combination of Ta miflu and Levaquin, IV steroids and nebulized bronchodilators, he is afebrile, hemodynamically patient is stable, he has been able to come off the BiPAP for short periods of time for meals. No acute events overnight,slowly improving On O2 2019 patient seen in follow-up on selective care unit, he is improving, able to come off the BiPAP support for up to 4 hours, still becomes very dyspneic with exertion, and takes a while to recover, but seems to be improving, physical examination today reveals some increased wheezing bilateral, increased air entry bilaterally, vital signs are stable, patient is on IV steroids, nebulized bronchodilators and Tamiflu and Levaquin, no fever or chills. Objective - Vital Signs Vital signs: Vital Signs Temp 98.4 F 04/05/19 11:43 Pulse 98 04/05/19 12:16 Resp 23 04/05/19 11:43 BP 121/75 04/05/19 11:43 Pulse Ox 99 04/05/19 11:43 Intake & Output 04/04/19 04/05/19 04/05/19 18:59 06:59 18:59 Intake Total 476 240 Output Total 120 400 Balance 476 -120 -160 Weight 70.4 kg Intake: Oral 476 240 Output: Urine 120 400 Stool 0 Other: Voiding Method Urinal Urinal # Voids 3 1 0 # Bowel Movements 0 0 - Exam GENERAL EXAM: Alert, very pleasant, 58-year-old white male, BiPAP support, with FiO2 of 35% comfortable in no apparent distress. Patient is mildly dyspneic with conversation, and moderately dyspneic with exertion HEAD: Normocephalic/atraumatic. EYES: Normal reaction of pupils, equal size. Conjunctiva pink, sclera white. NOSE: Clear with pink turbinates. THROAT: No erythema or exudates. NECK: No masses, no JVD, no thyroid enlargement, no adenopathy. CHEST: No chest wall deformity. Symmetrical expansion. LUNGS: Diminished air entry with no crackles, wheeze, rhonchi or dullness. CVS: Regular rate and rhythm, normal S1 and S2, no gallops, no murmurs, no rubs ABDOMEN: Soft, nontender. No hepatosplenomegaly, normal bowel sounds, no guarding or rigidity. EXTREMITIES: No clubbing, no edema, no cyanosis, 2+ pulses and upper and lower extremities. MUSCULOSKELETAL: Muscle strength and tone normal. SPINE: No scoliosis or deformity SKIN: No rashes CENTRAL NERVOUS SYSTEM: Alert and oriented -3. No focal deficits, tone is normal in all 4 extremities. PSYCHIATRIC: Alert and oriented -3. Appropriate affect. Intact judgment and insight. - Labs CBC & Chem 7: 04/01/19 09:05 04/01/19 09:05 Labs: Abnormal Lab Results - Last 24 Hours (Table) 04/04/19 04/04/19 04/05/19 Range/Units 16:31 20:31 06:10 POC Glucose (mg/dL) 133 H 240 H 133 H (75-99) mg/dL 04/05/19 Range/Units 12:06 POC Glucose (mg/dL) 136 H (75-99) mg/dL Microbiology - Last 24 Hours (Table) 04/01/19 09:05 Blood Culture - Preliminary Blood No Growth after 96 hours Assessment and Plan Plan: Assessment: 1 acute COPD exacerbation secondary to an acute influenza infection and the patient was checked positive for influenza A and he was started on Tamiflu. Note that he had a similar infection back in March 2018 is was complicated by development of the theta dependent respiratory failure. Currently his on a BiPAP at a pressure of 12/5 with an FiO2 of 35%. Chest x-ray no acute pulmonary infiltrates. The patient is improving. His alternating with dizziness BiPAP and 4 L of oxygen by nasal cannula. Is able to speak of longer sentences. His shortness of breath and cough is also subsided. 2 acute on top of chronic hypoxic respiratory failure, secondary to above 3 advanced COPD at baseline with FEV1 of less than 30% of predicted 4 previous hospitalization for COPD exacerbations and back in March 2018 the patient had failure to wean off the mechanical ventilator and he required tracheostomy and PEG tube insertion and subsequently he did improve and a tracheostomy tube has been removed since. 5 smoker 6 chronic anxiety 7 chronic depression 8 obstructive sleep apnea maintained on CPAP at a pressure of 9 cm of water on outpatient basis. The patient unable to tolerate CPAP. He does not have a BiPAP unit at home. Plan: Slowly improving, vital signs are stable, is tolerating nasal cannula trials of BiPAP support for up to 4 hours, still quite dyspneic with any exertion, and t akes a while to recover, the most part is BiPAP dependent. Continue current medical treatment, patient will need a Trilogy ventilator with the BiPAP mode with pressures of 12/5 and FiO2 of 35% after discharge. In view of his advanced COPD he would benefit from Trilogy ventilator on the BiPAP mode instead of his home CPAP. We'll speak to the discharge planners and process will be started to qualify him for Trilogy ventilator based on his diagnosis of advanced COPD with chronic hypoxic and hypercapnic respiratory failure with frequent readmissions for complications related to COPD I performed a history & physical examination of the patient and discussed their management with my nurse practitioner, Gay Fiore. I reviewed the nurse practitioner's note and agree with the documented findings and plan of care. Lung sounds are positive for diminished breath sounds. The findings and the impression was discussed with the patient. I attest to the documentation by the nurse practitioner. Time with Patient: Less than 30
[2019-04-05 16:56] LABS: Glucose,Whole Blood 125 mg/dL (75-99)
[2019-04-05 20:11] LABS: Glucose,Whole Blood 198 mg/dL (75-99)
[2019-04-05] MEDS: IPRATROPIUM-ALBUTEROL 3 ML NEB INHALATION PRN (23:25)
[2019-04-06] MEDS: HEPARIN SODIUM,PORCINE 5,000 UNIT/ML 1 ML VIAL SQ SCH ×2 (01:53→08:55)
[2019-04-06] MEDS: methylPREDNISolone SOD SUCCI 40 MG/ML 1 ML VIAL IV SCH ×3 (01:53→11:56)
[2019-04-06] MEDS: IPRATROPIUM-ALBUTEROL 3 ML NEB INHALATION PRN (03:31)
[2019-04-06 05:55] LABS: Glucose,Whole Blood 191 mg/dL (75-99)
[2019-04-06] MEDS: INSULIN ASPART (NovoLOG) 100 UNIT/ML VIAL SQ SCH ×2 (07:05→11:46)
[2019-04-06] MEDS: IPRATROPIUM-ALBUTEROL 3 ML NEB INHALATION SCH ×2 (08:37→12:41)
[2019-04-06] MEDS: BUDESONIDE 1 MG/2 ML NEBU INHALATION SCH (08:37)
[2019-04-06] MEDS: FORMOTEROL FUMARATE 20 MCG/2 ML NEBU INHALATION SCH (08:37)
[2019-04-06] MEDS: LORATADINE 10 MG TAB PO SCH (08:54)
[2019-04-06] MEDS: LEVOFLOXACIN 750 MG TAB PO SCH (08:54)
[2019-04-06] MEDS: THEOPHYLLINE 24 HOUR 400 MG CAP.ER.24H PO SCH (08:54)
[2019-04-06] MEDS: FAMOTIDINE 20 MG TAB PO SCH (08:54)
[2019-04-06] MEDS: amLODIPine 10 MG TAB PO SCH (08:54)
[2019-04-06] MEDS: ALPRAZolam 0.25 MG TAB PO PRN (08:54)
[2019-04-06 09:04] VITALS: RESP 23
[2019-04-06 11:31] LABS: Glucose,Whole Blood 103 mg/dL (75-99)
[2019-04-06 12:19] VITALS: BP 134/75; TEMP 98.3
--- NOTE | 2019-04-06 12:51 | P.PN ---
Subjective Progress Note Date: 04/06/19 On O2 2019 patient seen in follow-up on selective care unit, he has been wearing BiPAP most of the time with FiO2 of 35%, he states his breathing is improved, he is slightly less dyspneic and bronchospastic, patient is still significantly short of breath with any exertion. He is on a combination of Ta miflu and Levaquin, IV steroids and nebulized bronchodilators, he is afebrile, hemodynamically patient is stable, he has been able to come off the BiPAP for short periods of time for meals. No acute events overnight,slowly improving On O2 2019 patient seen in follow-up on selective care unit, he is improving, able to come off the BiPAP support for up to 4 hours, still becomes very dyspneic with exertion, and takes a while to recover, but seems to be improving, physical examination today reveals some increased wheezing bilateral, increased air entry bilaterally, vital signs are stable, patient is on IV steroids, nebulized bronchodilators and Tamiflu and Levaquin, no fever or chills. On 04/06/2019 patient seen in follow-up on selective care unit. He is doing better on today's exam, his able to come off the BiPAP support for longer periods of time. Currently on 6 L of oxygen his pulse ox of percent, hemodynamically stable, no fever or chills, better air entry noted bilaterally, with less wheezing. His Trilogy ventilator has been delivered to his room, patient has been educated on it, and he feels comfortable using it. He continues on oral Levaquin, IV steroids, and breathing treatments, he completed the Tamiflu. Doing better, would like to go home today Objective - Vital Signs Vital signs: Vital Signs Temp 98.3 F 04/06/19 12:15 Pulse 100 04/06/19 12:41 Resp 23 04/06/19 12:15 BP 134/75 04/06/19 12:15 Pulse Ox 100 04/06/19 12:15 Intake & Output 04/05/19 04/06/19 04/06/19 18:59 06:59 18:59 Intake Total 720 540 200 Output Total 400 0 0 Balance 320 540 200 Weight 69.8 kg Intake: Oral 720 540 200 Output: Urine 400 Stool 0 0 0 Other: Voiding Method Urinal Urinal Urinal # Voids 0 3 2 # Bowel Movements 0 - Exam GENERAL EXAM: Alert, very pleasant, 58-year-old white male, a 6 L of oxygen with a pulse ox of 100% comfortable in no apparent distress. Patient is mildly dyspneic with conversation, and moderately dyspneic with exertion HEAD: Normocephalic/atraumatic. EYES: Normal reaction of pupils, equal size. Conjunctiva pink, sclera white. NOSE: Clear with pink turbinates. THROAT: No erythema or exudates. NECK: No masses, no JVD, no thyroid enlargement, no adenopathy. CHEST: No chest wall deformity. Symmetrical expansion. LUNGS: Diminished air entry with no crackles, wheeze, rhonchi or dullness. Improved air entry noted bilaterally and today's exam CVS: Regular rate and rhythm, normal S1 and S2, no gallops, no murmurs, no rubs ABDOMEN: Soft, nontender. No hepatosplenomegaly, normal bowel sounds, no guarding or rigidity. EXTREMITIES: No clubbing, no edema, no cyanosis, 2+ pulses and upper and lower extremities. MUSCULOSKELETAL: Muscle strength and tone normal. SPINE: No scoliosis or deformity SKIN: No rashes CENTRAL NERVOUS SYSTEM: Alert and oriented -3. No focal deficits, tone is normal in all 4 extremities. PSYCHIATRIC: Alert and oriented -3. Appropriate affect. Intact judgment and insight. - Labs CBC & Chem 7: 04/01/19 09:05 04/01/19 09:05 Labs: Abnormal Lab Results - Last 24 Hours (Table) 04/05/19 04/05/19 04/06/19 Range/Units 16:47 20:09 05:53 POC Glucose (mg/dL) 125 H 198 H 191 H (75-99) mg/dL 04/06/19 Range/Units 11:30 POC Glucose (mg/dL) 103 H (75-99) mg/dL Microbiology - Last 24 Hours (Table) 04/01/19 09:05 Blood Culture - Preliminary Blood No Growth after 120 hours Assessment and Plan Plan: Assessment: 1 acute COPD exacerbation secondary to an acute influenza infection and the patient was checked positive for influenza A and he was started on Tamiflu. Note that he had a similar infection back in March 2018 is was complicated by development of the Bi-Pap dependent respiratory failure. Currently his on a BiPAP at a pressure of 12/5 with an FiO2 of 35%. Chest x-ray no acute pulmonary infiltrates. The patient is improving. His alternating with dizziness BiPAP and 4 L of oxygen by nasal cannula. Is able to speak of longer sentences. His shortness of breath and cough is also subsided. 2 acute on top of chronic hypoxic respiratory failure, secondary to above 3 advanced COPD at baseline with FEV1 of less than 30% of predicted 4 previous hospitalization for COPD exacerbations and back in March 2018 the patient had failure to wean off the mechanical ventilator and he required tracheostomy and PEG tube insertion and subsequently he did improve and a tracheostomy tube has been removed since. 5 smoker 6 chronic anxiety 7 chronic depression 8 obstructive sleep apnea maintained on CPAP at a pressure of 9 cm of water on outpatient basis. The patient unable to tolerate CPAP. He does not have a BiPAP unit at home. Plan: Patient is improving, able to come off the BiPAP support for longer periods of time. He has completed a course of Tamiflu, continues on oral Levaquin, his been afebrile, his breathing is improving, he is able to ambulate in the room, his Trilogy ventilator has been delivered patient has been educated on its use, and he feels very comfortable and excited to use it at home. Patient can finish outpatient course of prednisone taper, and Levaquin he can resume his maintenance inhalers and nebulized treatments, follow-up with Dr. Valencia/Dr. Neri in 7-10 days I performed a history & physical examination of the patient and discussed their management with my nurse practitioner, Gay Fiore. I reviewed the nurse practitioner's note and agree with the documented findings and plan of care. Lung sounds are positive for diminished breath sounds. The findings and the impression was discussed with the patient. I attest to the documentation by the nurse practitioner. Time with Patient: Less than 30
[2019-04-06 12:56] VITALS: PULSE 104
--- NOTE | 2019-04-06 14:57 | P.DS ---
Providers Date of admission: 04/01/19 09:46 Expected date of discharge: 04/06/19 Attending physician: Hany Stuart Consults: 04/01/19 09:47 Consult Physician Urgent Consulting Provider: Gideon Valencia Consult Reason/Comments: COPD, respiratory failure on BiPAP Do you want consulting provider notified?: Yes Primary care physician: Naye Doll Hospital Course: Final diagnosis -Acute on chronic hypercapnic respiratory failure secondary to COPD exacerbation -Influenza A -Tracheobronchitis: Secondary to influenza. -Sleep apnea -Anxiety disorder -Hypertension -DVT prophylaxis -GI prophylaxis Discharge disposition Patient is being discharged in stable condition with guarded prognosis to home and will follow-up with Donna Neri in the clinic early next week. Patient will also follow-up with Dr. Doll upon discharge. Patient will continue with antibiotics in the form of Levaquin along with a prednisone taper upon discharge. Total time taken is 35 minutes. History of present illness This is a 58-year-old male who was recently admitted with COPD exacerbation and was found have influenza A and was being closely monitored. Patient normally uses a CPAP at home but has been requiring BiPAP during hospitalization. Patient was fitted and received a BiPAP for the home setting. Patient will follow up with pulmonary in the outpatient setting early next week. Patient will continue on oral antibiotics in the form of Levaquin along with a prednisone taper upon discharge. Patient did complete The course of Tamiflu while hospitalized. Instructed the patient to continue with nasal cannula oxygen and take breaks from the BiPAP at least 3-4 hours at a time while at home. Patient verbalized understanding. Currently no reports of chest pain, worsening shortness of breath, or palpitations. Patient is afebrile. No reports of nausea or vomiting and patient has been tolerating diet. Currently patient's condition is stable and states he would like to go home today. Patient feeling less apprehensive about going home as he has received a BiPAP now. On exam vital signs are stable. Temp is 98.3F, pulse is 68, respirations are 20, blood pressure is 134/75, oxygen saturation is 100% on 6 L via nasal cannula. Cardio S1, S2 are present. Respiratory system shows severely diminished breath sounds with no wheezing noted. Abdomen is soft and nontender. Nervous system shows no focal deficits. Please refer to medication reconciliation sheet for a list of medications. Patient Condition at Discharge: Stable Plan - Discharge Summary Discharge Rx Participant: Yes New Discharge Prescriptions: New Levofloxacin [Levaquin] 750 mg PO DAILY 5 Days #5 tab Famotidine [Pepcid] 20 mg PO BID 30 Days #60 tab predniSONE 10 mg PO DIRECTED #30 tab ALPRAZolam [Xanax] 0.25 mg PO QID PRN #10 tab PRN Reason: Anxiety Continue Alendronate Sodium [Fosamax] 70 mg PO DE LA CRUZ Albuterol Sulfate [Proair Hfa] 2 puff INHALATION RT-TID PRN PRN Reason: Shortness Of Breath Theophylline Anhydrous [Uniphyl] 200 mg PO BID Ipratropium-Albuterol Nebulize [Duoneb 0.5 mg-3 mg/3 ml Soln] 3 ml INHALATION RT-QID PRN PRN Reason: Shortness Of Breath amLODIPine [Norvasc] 10 mg PO DAILY #30 tab Vitamin B Complex 1 cap PO DAILY Albuterol Nebulized [Ventolin Nebulized] 2.5 mg INHALATION RT-Q4H PRN PRN Reason: Shortness Of Breath Cyanocobalamin (Vitamin B-12) [Vitamin B-12] 5,000 mcg PO DAILY EPINEPHrine (Auto Inject) [Epipen] 0.3 mg IM ONCE PRN PRN Reason: Anaphylaxis Loratadine [Claritin] 10 mg PO DAILY Fluticasone/Umeclidin/Vilanter [Trelegy Ellipta 100-62.5-25] 1 puff INHALATION RT-DAILY Multivit-Min/FA/Lycopen/Lutein [Centrum Silver Tablet] 1 tab PO DAILY Potassium Citrate [Urocit-K] 10 meq PO BID Discontinued predniSONE 5 mg PO DAILY Azithromycin [Zithromax] 250 mg PO Q48H Discharge Medication List Albuterol Sulfate [Proair Hfa] 2 puff INHALATION RT-TID PRN 07/28/16 [History] Alendronate Sodium [Fosamax] 70 mg PO DE LA CRUZ 07/28/16 [History] Theophylline Anhydrous [Uniphyl] 200 mg PO BID 12/20/16 [History] Ipratropium-Albuterol Nebulize [Duoneb 0.5 mg-3 mg/3 ml Soln] 3 ml INHALATION RT-QID PRN 01/04/18 [History] amLODIPine [Norvasc] 10 mg PO DAILY #30 tab 04/13/18 [Rx] Albuterol Nebulized [Ventolin Nebulized] 2.5 mg INHALATION RT-Q4H PRN 12/09/18 [History] Cyanocobalamin (Vitamin B-12) [Vitamin B-12] 5,000 mcg PO DAILY 12/09/18 [History] Vitamin B Complex 1 cap PO DAILY 12/09/18 [History] EPINEPHrine (Auto Inject) [Epipen] 0.3 mg IM ONCE PRN 04/01/19 [History] Fluticasone/Umeclidin/Vilanter [Trelegy Ellipta 100-62.5-25] 1 puff INHALATION RT-DAILY 04/01/19 [History] Loratadine [Claritin] 10 mg PO DAILY 04/01/19 [History] Multivit-Min/FA/Lycopen/Lutein [Centrum Silver Tablet] 1 tab PO DAILY 04/01/19 [History] Potassium Citrate [Urocit-K] 10 meq PO BID 04/01/19 [History] ALPRAZolam [Xanax] 0.25 mg PO QID PRN #10 tab 04/06/19 [Rx] Famotidine [Pepcid] 20 mg PO BID 30 Days #60 tab 04/06/19 [Rx] Levofloxacin [Levaquin] 750 mg PO DAILY 5 Days #5 tab 04/06/19 [Rx] predniSONE 10 mg PO DIRECTED #30 tab 04/06/19 [Rx] Follow up Appointment(s)/Referral(s): Donna Neri NPC [Nurse Practitioner] - 04/11/19 2:45 pm (Thursday) Naye Doll DO [Primary Care Provider] - 04/08/19 11:20 am (Thursday with [employer]) Patient Instructions/Handouts: Influenza (DC), COPD (Chronic Obstructive Pulmonary Disease) (DC) Activity/Diet/Wound Care/Special Instructions: Activity Limited until follow-up Follow-up with primary care provider upon discharge Continue antibiotics until finished Continue with prednisone taper Follow-up with pulmonary next week Continue current diet Discharge Disposition: HOME SELF-CARE
--- NOTE | 2019-04-08 07:56 | CDI ---
Documentation Clarification Form Date: 04/08/19 From: Shirin Ramos Phone: If you have a question about this query, please contact Niesha Flores, [employer] at [phone] between 8am and 5pm. Admit Date: 04/01/19 Discharge Date:04/06/19 Patient Name: Ayush Menard Visit Number: [id number] ATTENTION: The Clinical Documentation Specialists (CDI) and [facility] Coding Staff appreciate your assistance in clarifying documentation. Please respond to the clarification below the line at the bottom and electronically sign. The CDI & [facility] Coding staff will review the response and follow-up if needed. Please note: Queries are made part of the Legal Health Record. If you have any questions, please contact the author of this message via ITS. Dear Dr. Stuart Conflicting documentation has been found in the medical record: Your documentation states acute on chronic hypercapnic respiratory failure. Pulmonology documentation states acute on chronic hypoxic respiratory failure. History/Risk Factors: COPD, Influenza A, past medical history of chronic hypoxic respiratory failure Clinical Indicators: Significantly short of breath with any exertion, dyspneic, bronchospastic Tobacco Use: Cigarette smoker Home Oxygen: 3 L/NC Vital signs: T. 97.5, P. 121, R. 30, BP 126/84 Pulse Ox: 99% on CPAP Lab: Carbon Dioxide 29 Lung/Breathing assessment: Respiratory distress, wheezes, decreased breath sounds Treatment: Breathing treatment: Duoneb, Pulmicort, Continuous Pulse Ox: 95 - 99% on BiPAP BiPAP: 3 - 6 L/min In your opinion, what is the most clinically appropriate diagnosis for this patient? Acute on Chronic Hypercapnic Respiratory Failure Acute on Chronic Hypoxic Respiratory Failure Other Diagnosis (please specify): Unable to determine My impression is per my documentation cannot speak for commercial reporter documentation MTDD
== END 2019-04-06 14:16 | disposition home or self-care (01) | DRG 189 ==
LOC: EC 08:40 → 3SCARD 09:46
PROVIDERS: ADMIT Internal Medicine; ATTEND Internal Medicine
PROC: 5A09557 Assistance with Respiratory Ventilation, Greater than 96 Consecutive Hours, Continuous Positive Airway Pressure (ICD-10-PCS; principal; 2019-04-01)
DX: J96.22 Acute and chronic respiratory failure with hypercapnia (principal); J44.1 Chronic obstructive pulmonary disease with (acute) exacerbation; J10.1 Influenza due to other identified influenza virus with other respiratory manifestations; F17.210 Nicotine dependence, cigarettes, uncomplicated; F32.9 Major depressive disorder, single episode, unspecified; F41.9 Anxiety disorder, unspecified; G47.33 Obstructive sleep apnea (adult) (pediatric); I10 Essential (primary) hypertension; M85.80 Other specified disorders of bone density and structure, unspecified site; Z79.51 Long term (current) use of inhaled steroids; Z79.83 Long term (current) use of bisphosphonates; Z79.899 Other long term (current) drug therapy; Z99.81 Dependence on supplemental oxygen; Z87.442 Personal history of urinary calculi; Z87.01 Personal history of pneumonia (recurrent); Z93.1 Gastrostomy status; Z80.1 Family history of malignant neoplasm of trachea, bronchus and lung; Z82.5 Family history of asthma and other chronic lower respiratory diseases
CPT/HCPCS: 36415; 71045; 80053; 83605; 85025; 87040; 87502; 93005; 94640; 94660; 94760; 96365; 96375; 99291

== ENCOUNTER 2020-06-25 12:58 | Inpatient (IN) | payer MEDICARE ==
[2020-06-25] MEDS ORDERED: ALBUTEROL NEBULIZED 2.5 MG/3 ML INHALATION STA (13:42)
[2020-06-25] MEDS ORDERED: methylPREDNISolone SOD SUCCI 125 MG/2 ML VIAL IV STA (13:42)
[2020-06-25] MEDS ORDERED: IPRATROPIUM 0.5 MG/2.5 ML NEBU INHALATION STA (13:42)
--- NOTE | 2020-06-25 13:48 | ED ---
General Adult HPI - General Chief complaint: Shortness of Breath Stated complaint: Chest pain,HEBER Time Seen by Provider: 06/25/20 13:00 Source: patient, RN notes reviewed, old records reviewed Mode of arrival: wheelchair Limitations: no limitations - History of Present Illness Initial comments: This a 59-year-old male with a past medical history significant for COPD per patient states he continues to smoke occasionally. Patient states since the beginning of the month June 09 he has had left-sided chest pain. Patient states it's constant and worse with deep breathing or with palpation of the lateral aspect of his left chest. Patient denies any sweating patient denies any fever chills or new cough. Patient denies any abdominal pain patient denies nausea vomiting diarrhea. Patient states he was an antibiotic earlier in the month by his primary medical care doctor but it has not helped his symptoms. Patient denies any leg swelling or calf tenderness. - Related Data Home Medications Medication Instructions Recorded Confirmed Albuterol Sulfate [Proair Hfa] 2 puff INHALATION RT-TID PRN 07/28/16 06/25/20 Alendronate Sodium [Fosamax] 70 mg PO DE LA CRUZ 07/28/16 06/25/20 Theophylline Anhydrous [Uniphyl] 200 mg PO BID 12/20/16 06/25/20 Ipratropium-Albuterol Nebulize 3 ml INHALATION RT-QID PRN 01/04/18 06/25/20 [Duoneb 0.5 mg-3 mg/3 ml Soln] Albuterol Nebulized [Ventolin 2.5 mg INHALATION RT-Q4H PRN 12/09/18 06/25/20 Nebulized] Cyanocobalamin (Vitamin B-12) 1,000 mcg PO Q48H 12/09/18 06/25/20 [Vitamin B-12] Vitamin B Complex 1 cap PO DAILY 12/09/18 06/25/20 EPINEPHrine (Auto Inject) [Epipen] 0.3 mg IM ONCE PRN 04/01/19 06/25/20 Fluticasone/Umeclidin/Vilanter 1 puff INHALATION RT-DAILY 04/01/19 06/25/20 [Trelegy Ellipta 100-62.5-25] Loratadine [Claritin] 10 mg PO DAILY 04/01/19 06/25/20 Multivit-Min/FA/Lycopen/Lutein 1 tab PO DAILY 04/01/19 06/25/20 [Centrum Silver Tablet] Potassium Citrate [Urocit-K] 10 meq PO BID 04/01/19 06/25/20 ALPRAZolam [Xanax] 1 mg PO BID 06/25/20 06/25/20 Azithromycin 250 mg PO Q48H 06/25/20 06/25/20 Metoprolol Succinate [Toprol XL] 50 mg PO DAILY 06/25/20 06/25/20 predniSONE 5 mg PO DAILY 06/25/20 06/25/20 predniSONE 10 mg PO DAILY PRN 06/25/20 06/25/20 Allergies Allergy/AdvReac Type Severity Reaction Status Date / Time No Known Allergies Allergy Verified 06/25/20 13:44 Review of Systems ROS Statement: Those systems with pertinent positive or pertinent negative responses have been documented in the HPI. ROS Other: All systems not noted in ROS Statement are negative. Past Medical History Past Medical History: COPD, Pneumonia, Renal Disease, Respiratory Disorder, Sl eep Apnea/CPAP/BIPAP Additional Past Medical History / Comment(s): Chronic hypoxic respiratory failure with home oxygen at 3L/NC, past respiratory failure with ET/vent/trach a nd peg tube, CPAP/oxygen at night, tracheobronchitis, bronchitis, elevated blood sugars with steroid use, kidney stones, osteopenia History of Any Multi-Drug Resistant Organisms: None Reported Past Surgical History: Hernia Repair, Tonsillectomy Additional Past Surgical History / Comment(s): R inguinal hernia repair, tracheo stomy, peg tube. Past Anesthesia/Blood Transfusion Reactions: No Reported Reaction Additional Past Anesthesia/Blood Transfusion Reaction / Comment(s): no blood transfusions Past Psychological History: Anxiety Smoking Status: Current some day smoker Past Alcohol Use History: Occasional Past Drug Use History: None Reported - Past Family History Father Family Medical History: Cancer Additional Family Medical History / Comment(s): of lung cancer Mother Family Medical History: Asthma General Exam - General Exam Comments Initial Comments: GENERAL: Patient is well-developed and well-nourished. Patient is nontoxic and well- hydrated and is in mild distress. ENT: Neck is soft and supple. No significant lymphadenopathy is noted. Oropharynx is clear. Moist mucous membranes. Neck has full range of motion without eliciting any pain. EYES: The sclera were anicteric and conjunctiva were pink and moist. Extraocular movements were intact and pupils were equal round and reactive to light. Eyelids were unremarkable. PULMONARY: Patient has diminished breath sounds with some expiratory wheezing. CARDIOVASCULAR: There is a regular rate and rhythm without any murmurs gallops or rubs. ABDOMEN: Soft and nontender with normal bowel sounds. SKIN: Skin is clear with no lesions or rashes and otherwise unremarkable. NEUROLOGIC: Patient is alert and oriented x3. Cranial nerves II through XII are grossly intact. Motor and sensory are also intact. Normal speech, volume and content. Symmetrical smile. MUSCULOSKELETAL: Normal extremities with adequate strength and full range of motion. No lower extremity swelling or edema. No calf tenderness. LYMPHATICS: No significant lymphadenopathy is noted PSYCHIATRIC: Normal psychiatric evaluation. Limitations: no limitations Course Vital Signs 06/25/20 13:01 Temperature 97.8 F Pulse Rate 111 H Respiratory 26 H Rate Blood Pressure 149/92 O2 Sat by Pulse 96 Oximetry Medical Decision Making - Medical Decision Making Chest x-ray shows no acute abnormality. Patient does have some flattened diaphragms consistent with COPD. Patient received 2 breathing continued emergency department and steroids. Patient still is having a difficult time breathing admitted the patient. - Lab Data Result diagrams: 06/25/20 13:52 06/25/20 13:52 Lab Results 06/25/20 06/25/20 06/25/20 Range/Units 13:52 13:52 13:52 WBC 7.0 (3.8-10.6) k/uL RBC 4.42 (4.30-5.90) m/uL Hgb 14.5 (13.0-17.5) gm/dL Hct 42.8 (39.0-53.0) % MCV 96.9 (80.0-100.0) fL MCH 32.8 (25.0-35.0) pg MCHC 33.9 (31.0-37.0) g/dL RDW 13.5 (11.5-15.5) % Plt Count 145 L (150-450) k/uL MPV 7.8 Neutrophils % 78 % Lymphocytes % 14 % Monocytes % 6 % Eosinophils % 1 % Basophils % 0 % Neutrophils # 5.5 (1.3-7.7) k/uL Lymphocytes # 1.0 (1.0-4.8) k/uL Monocytes # 0.4 (0-1.0) k/uL Eosinophils # 0.0 (0-0.7) k/uL Basophils # 0.0 (0-0.2) k/uL Sodium 138 (137-145) mmol/L Potassium 4.2 (3.5-5.1) mmol/L Chloride 95 L (98-107) mmol/L Carbon Dioxide 40 H (22-30) mmol/L Anion Gap 3 mmol/L BUN 13 (9-20) mg/dL Creatinine 0.67 (0.66-1.25) mg/dL Est GFR (CKD-EPI)AfAm >90 (>60 ml/min/1.73 sqM) Est GFR (CKD-EPI)NonAf >90 (>60 ml/min/1.73 sqM) Glucose 87 (74-99) mg/dL Calcium 9.6 (8.4-10.2) mg/dL Magnesium 2.0 (1.6-2.3) mg/dL Total Bilirubin 0.4 (0.2-1.3) mg/dL AST 29 (17-59) U/L ALT 20 (4-49) U/L Alkaline Phosphatase 89 (38-126) U/L Total Protein 6.8 (6.3-8.2) g/dL Albumin 4.2 (3.5-5.0) g/dL Coronavirus (PCR) Not Detected (Not Detectd) Disposition Clinical Impression: COPD with acute exacerbation Disposition: ADMITTED IP TO THIS HOSP Referrals: Naye Doll DO [Primary Care Provider] - 1-2 days Time of Disposition: 14:33
[2020-06-25 14:08] LABS: Basophils % (A) 0 %; Eosinophils % (A) 1 %; HCT 42.8 % (39.0-53.0); HGB 14.5 gm/dL (13.0-17.5); Lymphocytes % (A) 14 %; MCH 32.8 pg (25.0-35.0); MCHC 33.9 g/dL (31.0-37.0); MCV 96.9 fL (80.0-100.0); Mean Platelet Volume 7.8; Monocytes # (A) 0.4 k/uL (0-1.0); Monocytes % (A) 6 %; Neutrophils # (A) 5.5 k/uL (1.3-7.7); Neutrophils % (A) 78 %; Platelet Count 145 k/uL (150-450); RBC 4.42 m/uL (4.30-5.90); RDW 13.5 % (11.5-15.5)
[2020-06-25 14:22] LABS: ALT 20 U/L (4-49); AST 29 U/L (17-59); African American GFR (CKD) >90 (>60 ml/min/1.73 sqM); Albumin 4.2 g/dL (3.5-5.0); Alkaline Phosphatase 89 U/L (38-126); Anion Gap 3 mmol/L; Blood Urea Nitrogen 13 mg/dL (9-20); Calcium 9.6 mg/dL (8.4-10.2); Carbon Dioxide 40 mmol/L (22-30); Chloride 95 mmol/L (98-107); Glucose 87 mg/dL (74-99); Non-African American GFR(CKD) >90 (>60 ml/min/1.73 sqM); Potassium 4.2 mmol/L (3.5-5.1); Sodium 138 mmol/L (137-145); Total Bilirubin 0.4 mg/dL (0.2-1.3); Total Protein 6.8 g/dL (6.3-8.2)
[2020-06-25 14:30] LABS: INR 0.9 (<1.2); Partial Thromboplastin Time 22.9 sec (22.0-30.0)
--- NOTE | 2020-06-25 14:30 | XR ---
EXAMINATION TYPE: XR chest 2V DATE OF EXAM: 06/25/2020 COMPARISON: Chest x-ray April 01, 2019 HISTORY: History of COPD with shortness of breath TECHNIQUE: Frontal and lateral views of the chest are obtained. FINDINGS: There is background chronic emphysematous change without suspicious focal air space opacit y, pleural effusion, or pneumothorax seen. The cardiac silhouette size is stable and within normal l imits. The osseous structures are intact. IMPRESSION: Chronic emphysematous change without acute pulmonary process.
[2020-06-25] MEDS ORDERED: IPRATROPIUM-ALBUTEROL 3 ML NEB INHALATION PRN (14:33)
[2020-06-25 14:44] LABS: D-Dimer 0.9 mg/L FEU (<0.60)
--- NOTE | 2020-06-25 17:27 | P.HPIM ---
History of Present Illness 3-year-old male with history of COPD still smokes but quite down quite a bit came in with complaints of shortness of breath does have advanced COPD uses around 3-4 L of oxygen and BiPAP at nighttime and on as-needed basis follow up w juan the Dr. Ho as an outpatient for COPD. Patient was also comparing of chest pain on and off usually in the mornings sharp in nature left-sided chest reproducible worse with cough but not worse with deep breathing denied any lightheadedness appears to be noncardiac denied any abdominal pain nausea vomiting diarrhea. Patient was comparing of cough unable to bring up anything. KT showed a sinus rhythm without any acute abnormality. Patient is bit to. Troponin first set is negative. Review of Systems REVIEW OF SYSTEMS: CONSTITUTIONAL: No fever, no malaise, no fatigue. HEENT: No recent visual problems or hearing problems. Denied any sore throat. CARDIOVASCULAR: No chest pain, orthopnea, PND, no palpitations, no syncope. PULMONARY: no hemoptysis. GASTROINTESTINAL: No diarrhea, no nausea, no vomiting, no abdominal pain. NEUROLOGICAL: No headaches, no weakness, no numbness. HEMATOLOGICAL: Denies any bleeding or petechiae. GENITOURINARY: Denies any burning micturition, frequency, or urgency. MUSCULOSKELETAL/RHEUMATOLOGICAL: Denies any joint pain, swelling, or any muscle pain. ENDOCRINE: Denies any polyuria or polydipsia. The rest of the 14-point review of systems is negative. Past Medical History Past Medical History: COPD, Hypertension, Pneumonia, Renal Disease, Respiratory Disorder, Sleep Apnea/CPAP/BIPAP Additional Past Medical History / Comment(s): Chronic hypoxic respiratory failure with home oxygen at 3-4L/NC ATC, past respiratory failure with ET/vent/trach and peg tube, biPAP/oxygen at night, tracheobronchitis, bronchitis, elevated blood sugars with steroid use, kidney stones, osteopenia History of Any Multi-Drug Resistant Organisms: None Reported Past Surgical History: Hernia Repair, Tonsillectomy Additional Past Surgical History / Comment(s): R inguinal hernia repair, trache ostomy, peg tube. Past Anesthesia/Blood Transfusion Reactions: No Reported Reaction Additional Past Anesthesia/Blood Transfusion Reaction / Comment(s): no blood transfusions Smoking Status: Current some day smoker, Light tobacco smoker - Past Family History Father Family Medical History: Cancer Additional Family Medical History / Comment(s): of lung cancer Mother Family Medical History: Asthma Medications and Allergies Home Medications Medication Instructions Recorded Confirmed Type Albuterol Sulfate [Proair Hfa] 2 puff INHALATION RT-TID PRN 07/28/16 06/25/20 History Alendronate Sodium [Fosamax] 70 mg PO DE LA CRUZ 07/28/16 06/25/20 History Theophylline Anhydrous [Uniphyl] 200 mg PO BID 12/20/16 06/25/20 History Ipratropium-Albuterol Nebulize 3 ml INHALATION RT-QID PRN 01/04/18 06/25/20 History [Duoneb 0.5 mg-3 mg/3 ml Soln] Albuterol Nebulized [Ventolin 2.5 mg INHALATION RT-Q4H PRN 12/09/18 06/25/20 History Nebulized] Cyanocobalamin (Vitamin B-12) 1,000 mcg PO Q48H 12/09/18 06/25/20 History [Vitamin B-12] Vitamin B Complex 1 cap PO DAILY 12/09/18 06/25/20 History EPINEPHrine (Auto Inject) [Epipen] 0.3 mg IM ONCE PRN 04/01/19 06/25/20 History Fluticasone/Umeclidin/Vilanter 1 puff INHALATION RT-DAILY 04/01/19 06/25/20 History [Mohanlemarbin Ellipta 100-62.5-25] Loratadine [Claritin] 10 mg PO DAILY 04/01/19 06/25/20 History Multivit-Min/FA/Lycopen/Lutein 1 tab PO DAILY 04/01/19 06/25/20 History [Centrum Silver Tablet] Potassium Citrate [Urocit-K] 10 meq PO BID 04/01/19 06/25/20 History ALPRAZolam [Xanax] 1 mg PO BID 06/25/20 06/25/20 History Azithromycin 250 mg PO Q48H 06/25/20 06/25/20 History Metoprolol Succinate [Toprol XL] 50 mg PO DAILY 06/25/20 06/25/20 History predniSONE 5 mg PO DAILY 06/25/20 06/25/20 History predniSONE 10 mg PO DAILY PRN 06/25/20 06/25/20 History Allergies Allergy/AdvReac Type Severity Reaction Status Date / Time No Known Allergies Allergy Verified 06/25/20 13:44 Physical Exam Vitals: Vital Signs Temp Pulse Resp BP Pulse Ox 06/25/20 15:10 92 06/25/20 14:42 90 06/25/20 13:01 97.8 F 111 H 26 H 149/92 96 Intake and Output 06/25/20 06/25/20 06/25/20 06:59 14:59 22:59 Other: Weight 66.678 kg 66.678 kg PHYSICAL EXAMINATION: GENERAL: The patient is alert and oriented x3, is [id number] respiratory distress. Well developed, well nourished. HEENT: Pupils are round and equally reacting to light. EOMI. No scleral icterus. No conjunctival pallor. Normocephalic, atraumatic. No pharyngeal erythema. No thyromegaly. CARDIOVASCULAR: S1 and S2 present. No murmurs, rubs, or gallops. PULMONARY: Silent chest without any significant air movement and no wheezing ABDOMEN: Soft, nontender, nondistended, normoactive bowel sounds. No palpable organomegaly. MUSCULOSKELETAL: No joint swelling or deformity. EXTREMITIES: No cyanosis, clubbing, or pedal edema. NEUROLOGICAL: Gross neurological examination did not reveal any focal deficits. SKIN: No rashes. Results CBC & Chem 7: 06/25/20 13:52 06/25/20 13:52 Labs: Abnormal Lab Results - Last 24 Hours (Table) 06/25/20 06/25/20 06/25/20 Range/Units 13:52 13:52 13:52 Plt Count 145 L (150-450) k/uL D-Dimer 0.90 H (<0.60) mg/L FEU Chloride 95 L (98-107) mmol/L Carbon Dioxide 40 H (22-30) mmol/L Thrombosis Risk Factor Assmnt - Choose All That Apply Any of the Below Risk Factors Present?: Yes Each Factor Represents 1 point: Abnormal pulmonary function (COPD), Age 41-60 years, Serious lung disease incl. pneumonia (< 1month) Other Risk Factors: No Other congenital or acquired thrombophilia - If yes, enter type in comment: No Thrombosis Risk Factor Assessment Total Risk Factor Score: 3 Thrombosis Risk Factor Assessment Level: Moderate Risk Assessment and Plan Plan: Acute on chronic hypoxic and hypercapnic respiratory failure secondary to COPD exacerbation patient will be continued on systemic steroids inhalational treatments. -Chest pain and musculoskeletal in nature secondary to coughing low possibility of pulmonary embolism patient the d-dimer is only 0.9 will repeat 2 more sets of troponins to rule out any cardiac causes with patient clinical symptomatology is consistent with musculoskeletal pain -Hypertension -Sleep apnea and uses CPAP machine at home -continued nicotine use: Counseling was provided GI prophylaxis with Protonix due to prophylaxis with Lovenox
[2020-06-25] MEDS ORDERED: methylPREDNISolone SOD SUCCI 125 MG/2 ML VIAL IV SCH (18:00)
[2020-06-25] MEDS: ALPRAZolam 1 MG TAB PO PRN (21:50)
[2020-06-25] MEDS: THEOPHYLLINE 24 HOUR 400 MG CAP.ER.24H PO SCH (21:50)
[2020-06-25] MEDS: FAMOTIDINE 20 MG TAB PO SCH (21:50)
[2020-06-26] MEDS: methylPREDNISolone SOD SUCCI 40 MG/ML 1 ML VIAL IV SCH ×4 (00:14→23:42)
[2020-06-26] MEDS ORDERED: NON FORMULARY DRUG (Fluticasone/Umeclidin/Vilanter [Trelegy Ellipta 100-62.5-25] 1 EACH Bl INHALATION SCH (08:00)
[2020-06-26] MEDS: IPRATROPIUM 0.5 MG/2.5 ML NEBU INHALATION SCH ×5 (08:22→21:23)
[2020-06-26] MEDS: SYMBICORT 80-4.5 MCG INHALER INHALATION SCH ×3 (08:22→21:32)
[2020-06-26] MEDS: ENOXAPARIN 40 MG/0.4 ML SYRINGE SQ SCH (08:50)
[2020-06-26] MEDS: METOPROLOL SUCCINATE (ER) 50 MG TAB.ER.24H PO SCH (08:50)
[2020-06-26] MEDS: FAMOTIDINE 20 MG TAB PO SCH ×2 (08:50→20:41)
[2020-06-26] MEDS: CYANOCOBALAMIN 500 MCG TAB PO SCH (08:50)
[2020-06-26] MEDS: LORATADINE 10 MG TAB PO SCH (08:50)
[2020-06-26 14:39] VITALS: BMI 23.0
--- NOTE | 2020-06-26 14:55 | P.PN ---
Subjective Progress Note Date: 06/26/20 59-year-old male with history of COPD still smokes but quite down quite a bit came in with complaints of shortness of breath does have advanced COPD uses around 3-4 L of oxygen and BiPAP at nighttime and on as-needed basis follow up with the Dr. Ho as an outpatient for COPD. Patient was also comparing of chest pain on and off usually in the mornings sharp in nature left-sided chest reproducible worse with cough but not worse with deep breathing denied any lightheadedness appears to be noncardiac denied any abdominal pain nausea vomiting diarrhea. Patient was comparing of cough unable to bring up anything. KT showed a sinus rhythm without any acute abnormality. Patient is bit to. Troponin first set is negative. 06/26/2020 Patient is seen and evaluated in follow-up currently on a BiPAP along with 5 L nasal cannula. Patient continues to be extremely short of breath with minimal exertion and expiratory wheezing noted on exam. Patient is maintained on breathing treatments along with IV steroids and will continue. Discussed with per patient's request about CODE STATUS who wishes to be full code and she also mentioned that the patient is becoming more dependent on the BiPAP at home and she also noted that he has been wearing it throughout most of the day. Patient is anxious and does have Xanax as needed. Serial troponins have been negative. Review of systems: Constitutional: reports of fatigue, no reports of fever, or chills Cardiovascular: Reports left wall chest pain , denies palpitations Respiratory: reports of shortness of breath and occasional cough minimal phlegm production GI: No reports of nausea, vomiting, or diarrhea : No reports of dysuria or retention Neurovascular: reports generalized weakness All medications have been reviewed Objective - Vital Signs Vital signs: Vital Signs Temp 97.8 F 06/26/20 07:19 Pulse 98 06/26/20 08:33 Resp 18 06/26/20 07:19 BP 133/87 06/26/20 07:19 Pulse Ox 100 06/26/20 07:19 Intake & Output 06/25/20 06/26/20 06/26/20 18:59 06:59 18:59 Weight 66.678 kg Other: Voiding Method Toilet # Voids 2 - Exam GENERAL: The patient is alert and oriented x3, is in no acute respiratory distress this morning. Slightly anxious. Well developed, well nourished. HEENT: Pupils are round and equally reacting to light. EOMI. No scleral icterus. No conjunctival pallor. Normocephalic, atraumatic. No pharyngeal erythema. No thyromegaly. CARDIOVASCULAR: S1 and S2 present. No murmurs, rubs, or gallops. PULMONARY: Extremely diminished sounds bilaterally with some scattered expiratory wheezing noted on exam ABDOMEN: Soft, nontender, nondistended, normoactive bowel sounds. No palpable organomegaly. MUSCULOSKELETAL: No joint swelling or deformity. EXTREMITIES: No cyanosis, clubbing, or pedal edema. NEUROLOGICAL: Gross neurological examination did not reveal any focal deficits. SKIN: No rashes. - Labs CBC & Chem 7: 06/25/20 13:52 06/25/20 13:52 Labs: Abnormal Lab Results - Last 24 Hours (Table) 06/25/20 06/25/20 06/25/20 Range/Units 13:52 13:52 13:52 Plt Count 145 L (150-450) k/uL D-Dimer 0.90 H (<0.60) mg/L FEU Chloride 95 L (98-107) mmol/L Carbon Dioxide 40 H (22-30) mmol/L Assessment and Plan Assessment: -Acute on chronic hypoxic and hypercapnic respiratory failure secondary to COPD exacerbation patient will be continued on systemic steroids inhalational treatments. -Chest pain and musculoskeletal in nature secondary to coughing low possibility of pulmonary embolism patient the d-dimer is only 0.9 and all 3 troponins been negative to rule out any cardiac causes with patient clinical symptomatology is consistent with musculoskeletal pain -Hypertension -Sleep apnea and uses CPAP machine at home -continued nicotine use: Counseling was provided -GI prophylaxis with Protonix -dvt prophylaxis with Lovenox Plan: Continue with breathing inhalational treatments along with IV steroids and will continue to monitor closely. We'll repeat basic labs in the morning. Patient states he normally uses 4 L of oxygen via nasal cannula at home and currently using 5 L via nasal cannula along with BiPAP. Patient does use a BiPAP machine at home and per he has been using also throughout the day. Discussed with the patient about weaning FiO2 as tolerated and increasing activity as well.
[2020-06-26] MEDS: ALPRAZolam 1 MG TAB PO PRN (15:47)
[2020-06-26] MEDS: THEOPHYLLINE 24 HOUR 400 MG CAP.ER.24H PO SCH (20:41)
[2020-06-27] MEDS: ALPRAZolam 1 MG TAB PO PRN ×2 (01:56→17:50)
[2020-06-27 07:10] LABS: Basophils % (A) 0 %; Eosinophils % (A) 0 %; HCT 37.3 % (39.0-53.0); HGB 12.7 gm/dL (13.0-17.5); Lymphocytes # (A) 0.4 k/uL (1.0-4.8); Lymphocytes % (A) 5 %; Mean Platelet Volume 7.8; Monocytes # (A) 0.3 k/uL (0-1.0); Monocytes % (A) 3 %; Neutrophils # (A) 8.4 k/uL (1.3-7.7); Neutrophils % (A) 92 %; Platelet Count 141 k/uL (150-450); RBC 3.84 m/uL (4.30-5.90); RDW 13.4 % (11.5-15.5); WBC 9.2 k/uL (3.8-10.6)
[2020-06-27 07:29] LABS: African American GFR (CKD) >90 (>60 ml/min/1.73 sqM); Anion Gap 2 mmol/L; Blood Urea Nitrogen 19 mg/dL (9-20); Calcium 9.4 mg/dL (8.4-10.2); Carbon Dioxide 37 mmol/L (22-30); Chloride 97 mmol/L (98-107); Glucose 133 mg/dL (74-99); Non-African American GFR(CKD) >90 (>60 ml/min/1.73 sqM); Potassium 4.5 mmol/L (3.5-5.1); Sodium 136 mmol/L (137-145)
[2020-06-27] MEDS: ENOXAPARIN 40 MG/0.4 ML SYRINGE SQ SCH (08:47)
[2020-06-27] MEDS: LORATADINE 10 MG TAB PO SCH (08:47)
[2020-06-27] MEDS: FAMOTIDINE 20 MG TAB PO SCH ×2 (08:47→20:19)
[2020-06-27] MEDS: METOPROLOL SUCCINATE (ER) 50 MG TAB.ER.24H PO SCH (08:47)
[2020-06-27] MEDS: methylPREDNISolone SOD SUCCI 40 MG/ML 1 ML VIAL IV SCH (08:48)
[2020-06-27] MEDS: IPRATROPIUM 0.5 MG/2.5 ML NEBU INHALATION SCH ×2 (09:03→11:45)
[2020-06-27] MEDS: SYMBICORT 80-4.5 MCG INHALER INHALATION SCH (09:04)
[2020-06-27] MEDS ORDERED: IPRATROPIUM-ALBUTEROL 3 ML NEB INHALATION PRN (10:51)
[2020-06-27] MEDS: IPRATROPIUM-ALBUTEROL 3 ML NEB INHALATION SCH ×3 (11:45→20:45)
[2020-06-27] MEDS: methylPREDNISolone SOD SUCCI 125 MG/2 ML VIAL IV SCH ×3 (12:39→23:10)
--- NOTE | 2020-06-27 13:22 | P.CNPUL ---
History of Present Illness Consult date: 06/27/20 Requesting physician: Hany Stuart Reason for consult: dyspnea, chest pain Chief complaint: Dyspnea, left chest pain History of present illness: 59-year-old white male patient well-known to our service for his history of severe end-stage COPD, with chronic hypoxic and hypercapnic respiratory failure, and patient has Trilogy device at home, tobacco dependence syndrome, anxiety, obstructive sleep apnea. Patient was recently seen by Dr. Valencia in the office on 05/22/2020 for a follow-up. He continued to smoke at that time, he was having exertional shortness of breath. Patient did receive his COVID-19 vaccination on 05/19/2020. Patient and his received the [employer] vaccine. His baseline FEV1 30% of predicted. On 06/25/2020 patient presented to the hospital with complaints of left chest discomfort which is constant and worse with deep inspiration. Denies any fever or chills, no cough no hemoptysis, at times he is producing some clear-colored phlegm. He is on azithromycin on the regular basis every other day for prophylaxis. Denies any nausea vomiting or diarrhea. Denies any leg swelling or pain. She takes 5 mg of prednisone on a daily basis she is on azithromycin 250 mg every other day. He is on Trelegy Ellipta for maintenance inhaler. Chest x-ray showed chronic emphysematous changes without acute pulmonary process. Admission blood work showed a white count of 7.0, hemoglobin of 14.5, d-dimer was 0.90, sodium of 138, potassium is 4.2, chloride was 95, CO2 is 40, BUN of 13, creatinine 0.67, LFTs were within normal limits, 3 sets of troponins were less than 0.012. ProBNP was only 38. Pro-calcitonin has been sent and pending at this time, COVID-19 test was negative. Patient was given breathing treatments, IV steroids, and she was placed on BiPAP support overnight, he is currently on 5 L of oxygen his pulse ox is 98%. He is breathing comfortably, lung sounds are positive for diffuse wheezes, patient is admitted with acute exacerbation of COPD Review of Systems All systems: negative Constitutional: Denies chills, Denies fever Eyes: denies blurred vision, denies pain Ears, nose, mouth and throat: Denies headache, Denies sore throat Cardiovascular: Reports chest pain, Reports dyspnea on exertion, Reports shortness of breath Respiratory: Reports home oxygen, Reports respiratory infections, Reports wheezing, Denies cough Gastrointestinal: Denies abdominal pain, Denies diarrhea, Denies nausea, Denies vomiting Musculoskeletal: Denies myalgias Integumentary: Denies pruritus, Denies rash Neurological: Denies numbness, Denies weakness Psychiatric: Denies anxiety, Denies depression Endocrine: Denies fatigue, Denies weight change Past Medical History Past Medical History: COPD, Hypertension, Pneumonia, Renal Disease, Respiratory Disorder, Sleep Apnea/CPAP/BIPAP Additional Past Medical History / Comment(s): Chronic hypoxic respiratory failure with home oxygen at 3-4L/NC ATC, past respiratory failure with ET/vent/trach and peg tube, biPAP/oxygen at night, tracheobronchitis, bronchitis, elevated blood sugars with steroid use, kidney stones, osteopenia History of Any Multi-Drug Resistant Organisms: None Reported Past Surgical History: Hernia Repair, Tonsillectomy Additional Past Surgical History / Comment(s): R inguinal hernia repair, tracheostomy, peg tube. Past Anesthesia/Blood Transfusion Reactions: No Reported Reaction Additional Past Anesthesia/Blood Transfusion Reaction / Comment(s): no blood transfusions Smoking Status: Current some day smoker, Light tobacco smoker - Past Family History Father Family Medical History: Cancer Additional Family Medical History / Comment(s): of lung cancer Mother Family Medical History: Asthma Medications and Allergies Home Medications Medication Instructions Recorded Confirmed Type Albuterol Sulfate [Proair Hfa] 2 puff INHALATION RT-TID PRN 07/28/16 06/25/20 History Alendronate Sodium [Fosamax] 70 mg PO DE [place] CRUZ 07/28/16 06/25/20 History Theophylline Anhydrous [Uniphyl] 200 mg PO BID 12/20/16 06/25/20 History Ipratropium-Albuterol Nebulize 3 ml INHALATION RT-QID PRN 01/04/18 06/25/20 History [Duoneb 0.5 mg-3 mg/3 ml Soln] Albuterol Nebulized [Ventolin 2.5 mg INHALATION RT-Q4H PRN 12/09/18 06/25/20 History Nebulized] Cyanocobalamin (Vitamin B-12) 1,000 mcg PO Q48H 12/09/18 06/25/20 History [Vitamin B-12] Vitamin B Complex 1 cap PO DAILY 12/09/18 06/25/20 History EPINEPHrine (Auto Inject) [Epipen] 0.3 mg IM ONCE PRN 04/01/19 06/25/20 History Fluticasone/Umeclidin/Vilanter 1 puff INHALATION RT-DAILY 04/01/19 06/25/20 History [Trelegy Ellipta 100-62.5-25] Loratadine [Claritin] 10 mg PO DAILY 04/01/19 06/25/20 History Multivit-Min/FA/Lycopen/Lutein 1 tab PO DAILY 04/01/19 06/25/20 History [Centrum Silver Tablet] Potassium Citrate [Urocit-K] 10 meq PO BID 04/01/19 06/25/20 History ALPRAZolam [Xanax] 1 mg PO BID 06/25/20 06/25/20 History Azithromycin 250 mg PO Q48H 06/25/20 06/25/20 History Metoprolol Succinate [Toprol XL] 50 mg PO DAILY 06/25/20 06/25/20 History predniSONE 5 mg PO DAILY 06/25/20 06/25/20 History predniSONE 10 mg PO DAILY PRN 06/25/20 06/25/20 History Allergies Allergy/AdvReac Type Severity Reaction Status Date / Time No Known Allergies Allergy Verified 06/25/20 13:44 Physical Exam Vitals: Vital Signs Temp Pulse Pulse Resp BP Pulse Ox 06/27/20 11:59 72 06/27/20 11:45 69 06/27/20 09:18 67 06/27/20 09:04 66 06/27/20 08:01 97.7 F 80 17 133/76 98 06/27/20 01:52 98.1 F 63 18 147/56 97 06/27/20 01:43 97.5 F L 62 15 133/78 100 06/26/20 21:48 65 06/26/20 21:33 65 100 06/26/20 20:00 97.5 F L 65 22 120/83 100 06/26/20 16:38 94 06/26/20 16:27 90 06/26/20 14:00 98.0 F 89 16 138/74 100 Intake and Output 06/26/20 06/27/2021 22:59 06:59 14:59 Output Total 1200 Balance -1200 Output: Urine 1200 Other: Voiding Method Toilet # Voids 6 2 GENERAL EXAM: Alert, very pleasant, 59-year-old white male, on 5 L of oxygen and pulse ox of 95% comfortable in no apparent distress. HEAD: Normocephalic/atraumatic. EYES: Normal reaction of pupils, equal size. Conjunctiva pink, sclera white. NOSE: Clear with pink turbinates. THROAT: No erythema or exudates. NECK: No masses, no JVD, no thyroid enlargement, no adenopathy. CHEST: No chest wall deformity. Symmetrical expansion. LUNGS: Diminished breath sounds with diffuse wheezes CVS: Regular rate and rhythm, normal S1 and S2, no gallops, no murmurs, no rubs ABDOMEN: Soft, nontender. No hepatosplenomegaly, normal bowel sounds, no guarding or rigidity. EXTREMITIES: No clubbing, no edema, no cyanosis, 2+ pulses and upper and lower extremities. MUSCULOSKELETAL: Muscle strength and tone normal. SPINE: No scoliosis or deformity SKIN: No rashes CENTRAL NERVOUS SYSTEM: Alert and oriented -3. No focal deficits, tone is normal in all 4 extremities. PSYCHIATRIC: Alert and oriented -3. Appropriate affect. Intact judgment and insight. Results - Laboratory Findings CBC and BMP: 06/27/20 06:30 06/27/20 06:30 PT/INR, D-dimer PT 10.0 sec (9.0-12.0) 06/25/20 13:52 INR 0.9 (<1.2) 06/25/20 13:52 D-Dimer 0.90 mg/L FEU (<0.60) H 06/25/20 13:52 Abnormal lab findings: Abnormal Labs 06/25/20 06/25/20 06/25/20 13:52 13:52 13:52 RBC Hgb Hct Plt Count 145 L Neutrophils # Lymphocytes # D-Dimer 0.90 H Sodium Chloride 95 L Carbon Dioxide 40 H Glucose 06/27/20 06/27/20 06:30 06:30 RBC 3.84 L Hgb 12.7 L Hct 37.3 L Plt Count 141 L Neutrophils # 8.4 H Lymphocytes # 0.4 L D-Dimer Sodium 136 L Chloride 97 L Carbon Dioxide 37 H Glucose 133 H - Diagnostic Findings Chest x-ray: report reviewed, image reviewed Additional studies: EKG reviewed Assessment and Plan Plan: Assessment: #1. Acute exacerbation of COPD, and acute on chronic hypoxic respiratory failure. Patient tested negative for COVID-19. Chest x-ray shows no acute cardiopulmonary findings #2. Severe end-stage COPD with chronic hypoxic and hypercapnic respiratory failure with FEV1 of less than 30% of predicted, on home oxygen and patient has a Trilogy ventilator at home that he normally wears #3. History of obstructive sleep apnea #4. Status post [employer] COVID 19 vaccination on 05/19/2020 #5. Mildly elevated d-dimer, nonspecific, will obtain lower extremity Dopplers #6. Chronic and ongoing history of tobacco dependence #7. Anxiety #8. Depression Plan: Continue IV Solu-Medrol at 60 mg every 6 hours Continue breathing treatments Continue BiPAP support at bedtime and as needed, at 12/5 and FiO2 of 50% Pulmicort and Perforomist and DuoNeb [id number] No clear evidence of infection, we will send a pro-calcitonin level We will obtain lower extremity Dopplers Continue GI and DVT prophylaxis Continue to follow I performed a history & physical examination of the patient and discussed their management with my nurse practitioner, Gay Fiore. I reviewed the nurse practitioner's note and agree with the documented findings and plan of care. Lung sounds are positive for diffuse wheezes throughout the lung joseph. The findings and the impression was discussed with the patient. I attest to the documentation by the nurse practitioner. Time with Patient: Greater than 30
--- NOTE | 2020-06-27 14:37 | US ---
EXAMINATION TYPE: US venous doppler duplex LE DATE OF EXAM: 06/27/2020 2:14 PM COMPARISON: NONE CLINICAL HISTORY: rule out DVT. Patient denies bilateral leg swelling; c/o left chest pain; emphysema tous changes Patient had US while using BiPAP machine. SIDE PERFORMED: Bilateral TECHNIQUE: The lower extremity deep venous system is examined utilizing real time linear array sonog darlene with graded compression, doppler sonography and color-flow sonography. VESSELS IMAGED: Common Femoral Vein Deep Femoral Vein Greater Saphenous Vein * Femoral Vein Popliteal Vein Small Saphenous Vein * Proximal Calf Veins (* superficial vessels) Right Leg: Negative for DVT. Wall thickening is noted at Valves at Right Popliteal Vein Left Leg: Negative for DVT. Wall thickening is noted at Valves at Left upper and mid Femoral Vein. IMPRESSION: 1. No evidence of deep venous thrombosis of the bilateral lower extremities. 2. Please note wall thickening at the valves of the right popliteal vein and left upper and mid femor al vein.
--- NOTE | 2020-06-27 16:57 | P.PN ---
Subjective Progress Note Date: 06/27/20 59-year-old male with history of COPD still smokes but quite down quite a bit came in with complaints of shortness of breath does have advanced COPD uses around 3-4 L of oxygen and BiPAP at nighttime and on as-needed basis follow up with the Dr. Ho as an outpatient for COPD. Patient was also comparing of chest pain on and off usually in the mornings sharp in nature left-sided chest reproducible worse with cough but not worse with deep breathing denied any lightheadedness appears to be noncardiac denied any abdominal pain nausea vomiting diarrhea. Patient was comparing of cough unable to bring up anything. KT showed a sinus rhythm without any acute abnormality. Patient is bit to. Troponin first set is negative. 06/26/2020 Patient is seen and evaluated in follow-up currently on a BiPAP along with 5 L nasal cannula. Patient continues to be extremely short of breath with minimal exertion and expiratory wheezing noted on exam. Patient is maintained on breathing treatments along with IV steroids and will continue. Discussed with per patient's request about CODE STATUS who wishes to be full code and she also mentioned that the patient is becoming more dependent on the BiPAP at home and she also noted that he has been wearing it throughout most of the day. Patient is anxious and does have Xanax as needed. Serial troponins have been negative. 06/27/2020 Patient is seen in follow-up currently on 5 L of oxygen and continues to use intermittent BiPAP. Patient continues on IV steroids dose has been increased and pulmonary following. Patient will continue with DuoNeb and Pulmicort and performorist has been added. Wheezing much improved on today's exam. Instructed the patient to continue to increase activity as tolerated and get up out of the bed more often. White blood count is 9.2 and hemoglobin is 12.7, sodium is 136 with a potassium of 4.5 and current creatinine is 0.67. Review of systems: Constitutional: no reports of fatigue, no reports of fever, or chills Cardiovascular: Reports left wall chest pain , denies palpitations Respiratory: reports of shortness of breath and occasional cough minimal phlegm production GI: No reports of nausea, vomiting, or diarrhea : No reports of dysuria or retention Neurovascular: reports generalized weakness All medications have been reviewed Objective - Vital Signs Vital signs: Vital Signs Temp 97.7 F 06/27/20 08:01 Pulse 72 06/27/20 11:59 Resp 17 06/27/20 08:01 BP 133/76 06/27/20 08:01 Pulse Ox 98 06/27/20 08:01 Intake & Output 06/26/20 06/27/20 06/27/20 18:59 06:59 18:59 Output Total 1200 Balance -1200 Weight 66.678 kg Output: Urine 1200 Other: Voiding Method Toilet # Voids 6 2 - Exam GENERAL: The patient is alert and oriented x3, is in no acute respiratory distress this morning. less anxious today. Well developed, well nourished. HEENT: Pupils are round and equally reacting to light. EOMI. No scleral icterus. No conjunctival pallor. Normocephalic, atraumatic. No pharyngeal erythema. No thyromegaly. CARDIOVASCULAR: S1 and S2 present. No murmurs, rubs, or gallops. PULMONARY: diminished sounds bilaterally with some scattered expiratory wheezing noted on exam, expiratory wheezing much improved today ABDOMEN: Soft, nontender, nondistended, normoactive bowel sounds. No palpable organomegaly. MUSCULOSKELETAL: No joint swelling or deformity. EXTREMITIES: No cyanosis, clubbing, or pedal edema. NEUROLOGICAL: Gross neurological examination did not reveal any focal deficits. SKIN: No rashes. - Labs CBC & Chem 7: 06/27/20 06:30 06/27/20 06:30 Labs: Abnormal Lab Results - Last 24 Hours (Table) 06/27/20 06/27/20 Range/Units 06:30 06:30 RBC 3.84 L (4.30-5.90) m/uL Hgb 12.7 L (13.0-17.5) gm/dL Hct 37.3 L (39.0-53.0) % Plt Count 141 L (150-450) k/uL Neutrophils # 8.4 H (1.3-7.7) k/uL Lymphocytes # 0.4 L (1.0-4.8) k/uL Sodium 136 L (137-145) mmol/L Chloride 97 L (98-107) mmol/L Carbon Dioxide 37 H (22-30) mmol/L Glucose 133 H (74-99) mg/dL Assessment and Plan Assessment: -Acute on chronic hypoxic and hypercapnic respiratory failure secondary to COPD exacerbation, pulmonary now following and patient will continue with DuoNeb treatments and Pulmicort has been added. IV steroids have been increased. -Chest pain musculoskeletal in nature secondary to coughing low possibility of pulmonary embolism -Hypertension -Sleep apnea and uses CPAP machine at home -continued nicotine use: Counseling was provided -GI prophylaxis with Protonix -dvt prophylaxis with Lovenox Plan: Continue with breathing inhalational treatments along with IV steroids and will continue to monitor closely. Labs within normal limits today. Patient states he normally uses 4 L of oxygen via nasal cannula at home and currently using 5 L via nasal cannula along with BiPAP. Patient does use a BiPAP machine at home and per he has been using also throughout the day. Discussed with the patient about weaning FiO2 as tolerated and increasing activity as well. Pulmonary following. Will continue to monitor.
[2020-06-27] MEDS ORDERED: polyethylene glycoL 3350 17 GM POWD.PACK PO SCH (18:15)
[2020-06-27] MEDS: THEOPHYLLINE 24 HOUR 400 MG CAP.ER.24H PO SCH (20:19)
[2020-06-27] MEDS: FORMOTEROL FUMARATE 20 MCG/2 ML NEBU INHALATION SCH (20:45)
[2020-06-27] MEDS: BUDESONIDE 1 MG/2 ML NEBU INHALATION SCH (20:45)
[2020-06-28] MEDS: methylPREDNISolone SOD SUCCI 125 MG/2 ML VIAL IV SCH ×3 (05:33→17:16)
[2020-06-28] MEDS: BUDESONIDE 1 MG/2 ML NEBU INHALATION SCH ×2 (08:27→20:30)
[2020-06-28] MEDS: FORMOTEROL FUMARATE 20 MCG/2 ML NEBU INHALATION SCH ×2 (08:27→20:30)
[2020-06-28] MEDS: IPRATROPIUM-ALBUTEROL 3 ML NEB INHALATION SCH ×4 (08:28→20:30)
[2020-06-28] MEDS: LORATADINE 10 MG TAB PO SCH (08:38)
[2020-06-28] MEDS: ENOXAPARIN 40 MG/0.4 ML SYRINGE SQ SCH (08:38)
[2020-06-28] MEDS: CYANOCOBALAMIN 500 MCG TAB PO SCH (08:38)
[2020-06-28] MEDS: ALPRAZolam 1 MG TAB PO PRN ×2 (08:38→20:21)
[2020-06-28] MEDS: METOPROLOL SUCCINATE (ER) 50 MG TAB.ER.24H PO SCH (08:38)
[2020-06-28] MEDS: FAMOTIDINE 20 MG TAB PO SCH ×2 (08:38→20:21)
--- NOTE | 2020-06-28 12:33 | P.PN ---
Subjective Progress Note Date: 06/28/20 Principal diagnosis: Dyspnea, left chest pain 59-year-old white male patient well-known to our service for his history of severe end-stage COPD, with chronic hypoxic and hypercapnic respiratory failure, and patient has Trilogy device at home, tobacco dependence syndrome, anxiety, obstructive sleep apnea. Patient was recently seen by Dr. Valencia in the office on 05/22/2020 for a follow-up. He continued to smoke at that time, he was having exertional shortness of breath. Patient did receive his COVID-19 vaccination on 05/19/2020. Patient and his received the [employer] vaccine. His baseline FEV1 30% of predicted. On 06/25/2020 patient presented to the hospital with complaints of left chest discomfort which is constant and worse with deep inspiration. Denies any fever or chills, no cough no hemoptysis, at times he is producing some clear-colored phlegm. He is on azithromycin on the regular basis every other day for prophylaxis. Denies any nausea vomiting or diarrhea. Denies any leg swelling or pain. She takes 5 mg of prednisone on a daily basis she is on azithromycin 250 mg every other day. He is on Trelegy Ellipta for maintenance inhaler. Chest x-ray showed chronic emphysematous changes without acute pulmonary process. Admission blood work showed a white count of 7.0, hemoglobin of 14.5, d-dimer was 0.90, sodium of 138, potassium is 4.2, chloride was 95, CO2 is 40, BUN of 13, creatinine 0.67, LFTs were within normal limits, 3 sets of troponins were less than 0.012. ProBNP was only 38. Pro-calcitonin has been sent and pending at this time, COVID-19 test was negative. Patient was given breathing treatments, IV steroids, and she was placed on BiPAP support overnight, he is currently on 5 L of oxygen his pulse ox is 98%. He is breathing comfortably, lung sounds are positive for diffuse wheezes, patient is admitted with acute exacerbation of COPD On 06/28/2020 patient seen in follow-up on medical surgical floor, he reports breathing easier, is currently on 5 L of oxygen, he did wear BiPAP support last night. No fever or chills, remains on IV steroids, breathing treatments, Pulmicort and Perforomist, his pro-calcitonin level came back low at 0.06, and there is no need for antibiotics, he was negative for COVID-19, troponins were negative 3 Objective - Vital Signs Vital signs: Vital Signs Temp 97.8 F 06/28/20 07:25 Pulse 92 06/28/20 12:12 Resp 18 06/28/20 07:25 BP 140/84 06/28/20 07:25 Pulse Ox 100 06/28/20 07:25 Intake & Output 06/27/20 06/28/20 06/28/20 18:59 06:59 18:59 Other: Voiding Method Toilet Toilet # Voids 3 - Exam GENERAL EXAM: Alert, very pleasant, 59-year-old white male, on 5 L of oxygen and pulse ox of 95% comfortable in no apparent distress. HEAD: Normocephalic/atraumatic. EYES: Normal reaction of pupils, equal size. Conjunctiva pink, sclera white. NOSE: Clear with pink turbinates. THROAT: No erythema or exudates. NECK: No masses, no JVD, no thyroid enlargement, no adenopathy. CHEST: No chest wall deformity. Symmetrical expansion. LUNGS: Diminished breath sounds with diffuse wheezes CVS: Regular rate and rhythm, normal S1 and S2, no gallops, no murmurs, no rubs ABDOMEN: Soft, nontender. No hepatosplenomegaly, normal bowel sounds, no guarding or rigidity. EXTREMITIES: No clubbing, no edema, no cyanosis, 2+ pulses and upper and lower extremities. MUSCULOSKELETAL: Muscle strength and tone normal. SPINE: No scoliosis or deformity SKIN: No rashes CENTRAL NERVOUS SYSTEM: Alert and oriented -3. No focal deficits, tone is nor mal in all 4 extremities. PSYCHIATRIC: Alert and oriented -3. Appropriate affect. Intact judgment and insight. - Labs CBC & Chem 7: 06/27/20 06:30 06/27/20 06:30 Assessment and Plan Plan: Assessment: #1. Acute exacerbation of COPD, and acute on chronic hypoxic respiratory failure. Patient tested negative for COVID-19. Chest x-ray shows no acute cardiopulmonary findings #2. Severe end-stage COPD with chronic hypoxic and hypercapnic respiratory failure with FEV1 of less than 30% of predicted, on home oxygen and patient has a Trilogy ventilator at home that he normally wears #3. History of obstructive sleep apnea #4. Status post [employer] COVID 19 vaccination on 05/19/2020 #5. Mildly elevated d-dimer, nonspecific, will obtain lower extremity Dopplers #6. Chronic and ongoing history of tobacco dependence #7. Anxiety #8. Depression Plan: Continue IV Solu-Medrol at 60 mg every 6 hours Continue breathing treatments Continue BiPAP support at bedtime and as needed, at 12/5 and FiO2 of 50% Lower extremity Dopplers were reviewed and are negative for any evidence of DVT Continue GI and DVT prophylaxis No need for antibiotics We'll continue to follow I performed a history & physical examination of the patient and discussed their management with my nurse practitioner, Gay Fiore. I reviewed the nurse practitioner's note and agree with the documented findings and plan of care. Lung sounds are positive for diffuse wheezes throughout the lung joseph. The findings and the impression was discussed with the patient. I attest to the documentation by the nurse practitioner. Time with Patient: Less than 30
--- NOTE | 2020-06-28 16:38 | P.PN ---
Subjective Progress Note Date: 06/28/20 59-year-old male with history of COPD still smokes but quite down quite a bit came in with complaints of shortness of breath does have advanced COPD uses around 3-4 L of oxygen and BiPAP at nighttime and on as-needed basis follow up with the Dr. Ho as an outpatient for COPD. Patient was also comparing of chest pain on and off usually in the mornings sharp in nature left-sided chest reproducible worse with cough but not worse with deep breathing denied any lightheadedness appears to be noncardiac denied any abdominal pain nausea vomiting diarrhea. Patient was comparing of cough unable to bring up anything. KT showed a sinus rhythm without any acute abnormality. Patient is bit to. Troponin first set is negative. 06/26/2020 Patient is seen and evaluated in follow-up currently on a BiPAP along with 5 L nasal cannula. Patient continues to be extremely short of breath with minimal exertion and expiratory wheezing noted on exam. Patient is maintained on breathing treatments along with IV steroids and will continue. Discussed with per patient's request about CODE STATUS who wishes to be full code and she also mentioned that the patient is becoming more dependent on the BiPAP at home and she also noted that he has been wearing it throughout most of the day. Patient is anxious and does have Xanax as needed. Serial troponins have been negative. 06/27/2020 Patient is seen in follow-up currently on 5 L of oxygen and continues to use intermittent BiPAP. Patient continues on IV steroids dose has been increased and pulmonary following. Patient will continue with DuoNeb and Pulmicort and performorist has been added. Wheezing much improved on today's exam. Instructed the patient to continue to increase activity as tolerated and get up out of the bed more often. White blood count is 9.2 and hemoglobin is 12.7, sodium is 136 with a potassium of 4.5 and current creatinine is 0.67. 06/28/2020 Patient is seen in follow-up this morning currently resting and on room air stating he is just remove the BiPAP and was resting and states his breathing is easier. Patient continues to use 5 L and discussed with nursing staff about weaning as he normally wears 3-4 L at home. Patient is becoming more dependent on BiPAP throughout the day as well. Will continue with breathing inhalational treatments along with Pulmicort and IV steroids. Wheezing is much improved on e xam. Review of systems: Constitutional: no reports of fatigue, no reports of fever, or chills Cardiovascular: Reports left wall chest pain , denies palpitations Respiratory: reports of shortness of breath and occasional cough minimal phlegm production, reports breathing easier today GI: No reports of nausea, vomiting, or diarrhea : No reports of dysuria or retention Neurovascular: reports generalized weakness All medications have been reviewed Objective - Vital Signs Vital signs: Vital Signs Temp 97.8 F 06/28/20 07:25 Pulse 96 06/28/20 08:30 Resp 18 06/28/20 07:25 BP 140/84 06/28/20 07:25 Pulse Ox 100 06/28/20 07:25 Intake & Output 06/27/20 06/28/20 06/28/20 18:59 06:59 18:59 Other: Voiding Method Toilet Toilet # Voids 3 - Exam GENERAL: The patient is alert and oriented x3, is in no acute respiratory distress this morning. less anxious today. On room air during exam with no difficulty in breathing. Well developed, well nourished. HEENT: Pupils are round and equally reacting to light. EOMI. No scleral icterus. No conjunctival pallor. Normocephalic, atraumatic. No pharyngeal erythema. No thyromegaly. CARDIOVASCULAR: S1 and S2 present. No murmurs, rubs, or gallops. PULMONARY: diminished sounds bilaterally with minimal expiratory wheezing much improved today ABDOMEN: Soft, nontender, nondistended, normoactive bowel sounds. No palpable organomegaly. MUSCULOSKELETAL: No joint swelling or deformity. EXTREMITIES: No cyanosis, clubbing, or pedal edema. NEUROLOGICAL: Gross neurological examination did not reveal any focal deficits. SKIN: No rashes. - Labs CBC & Chem 7: 06/27/20 06:30 06/27/20 06:30 Assessment and Plan Assessment: -Acute on chronic hypoxic and hypercapnic respiratory failure secondary to COPD exacerbation, pulmonary now following and patient will continue with DuoNeb treatments and Pulmicort has been added. IV steroids have been increased. We'll transition to oral steroids tomorrow -Chest pain musculoskeletal in nature secondary to coughing low possibility of pulmonary embolism, improving -Hypertension -Sleep apnea and uses CPAP machine at home -continued nicotine use: Counseling was provided -GI prophylaxis with Protonix -dvt prophylaxis with Lovenox Plan: Continue with breathing inhalational treatments along with IV steroids and will continue to monitor closely. Will transition to oral steroids tomorrow. Patient states he normally uses 4 L of oxygen via nasal cannula at home and currently using 5 L via nasal cannula along with BiPAP. Patient does use a BiPAP machine at home and per he has been using also throughout the day. Discussed with the patient and nursing staff about weaning FiO2 as tolerated and increasing activity as well. Pulmonary following. Will continue to monitor. Pro-calcitonin negative and no need for antibiotics. Anticipate discharge in 24 hours.
[2020-06-28] MEDS: guaiFENesin 600 MG TABLET.ER PO SCH (20:21)
[2020-06-28] MEDS: THEOPHYLLINE 24 HOUR 400 MG CAP.ER.24H PO SCH (20:21)
[2020-06-29] MEDS: methylPREDNISolone SOD SUCCI 125 MG/2 ML VIAL IV SCH ×3 (00:44→13:08)
[2020-06-29] MEDS: ENOXAPARIN 40 MG/0.4 ML SYRINGE SQ SCH (08:20)
[2020-06-29] MEDS: FAMOTIDINE 20 MG TAB PO SCH (08:20)
[2020-06-29] MEDS: guaiFENesin 600 MG TABLET.ER PO SCH (08:20)
[2020-06-29] MEDS: METOPROLOL SUCCINATE (ER) 50 MG TAB.ER.24H PO SCH (08:20)
[2020-06-29] MEDS: ALPRAZolam 1 MG TAB PO PRN (08:20)
[2020-06-29] MEDS: LORATADINE 10 MG TAB PO SCH (08:20)
[2020-06-29] MEDS: FORMOTEROL FUMARATE 20 MCG/2 ML NEBU INHALATION SCH (08:24)
[2020-06-29] MEDS: BUDESONIDE 1 MG/2 ML NEBU INHALATION SCH (08:24)
[2020-06-29] MEDS: IPRATROPIUM-ALBUTEROL 3 ML NEB INHALATION SCH ×2 (08:24→11:42)
--- NOTE | 2020-06-29 13:10 | P.DS ---
Providers Date of admission: 06/25/20 14:33 Expected date of discharge: 06/29/20 Attending physician: Hany Stuart Consults: 06/26/20 15:35 Consult Physician Routine Consulting Provider: Matheus Reynoso Reason/Comments: COPD Do you want consulting provider notified?: Yes Primary care physician: Naye Sanchez Hospital Course: Final diagnosis -Acute on chronic hypoxic and hypercapnic respiratory failure secondary to COPD exacerbation -Chest pain musculoskeletal in nature secondary to coughing low possibility of pulmonary embolism, improving -Hypertension -Sleep apnea and uses CPAP machine at home -continued nicotine use: Counseling was provided -GI prophylaxis -dvt prophylaxis Discharge disposition Patient is being discharged in a stable condition with guarded prognosis to home. Patient will follow-up with Dr. Sanchez upon discharge. Patient also instructed to follow-up with pulmonary in the outpatient setting . Patient will continue on a prednisone taper and then resume his daily dosing. Total time taken is greater than 35 minutes. Hospital course 59-year-old male with history of COPD still smokes but quite down quite a bit came in with complaints of shortness of breath does have advanced COPD uses around 3-4 L of oxygen and BiPAP at nighttime and on as-needed basis follow up with the Dr. Ho as an outpatient for COPD. Patient was also comparing of chest pain on and off usually in the mornings sharp in nature left-sided chest reproducible worse with cough but not worse with deep breathing denied any lightheadedness appears to be noncardiac denied any abdominal pain nausea vomiting diarrhea. Patient was comparing of cough unable to bring up anything. KT showed a sinus rhythm without any acute abnormality. Patient is bit to. Troponin first set is negative. 06/26/2020 Patient is seen and evaluated in follow-up currently on a BiPAP along with 5 L nasal cannula. Patient continues to be extremely short of breath with minimal exertion and expiratory wheezing noted on exam. Patient is maintained on breathing treatments along with IV steroids and will continue. Discussed with per patient's request about CODE STATUS who wishes to be full code and she also mentioned that the patient is becoming more dependent on the BiPAP at home and she also noted that he has been wearing it throughout most of the day. P atient is anxious and does have Xanax as needed. Serial troponins have been negative. 06/27/2020 Patient is seen in follow-up currently on 5 L of oxygen and continues to use intermittent BiPAP. Patient continues on IV steroids dose has been increased and pulmonary following. Patient will continue with DuoNeb and Pulmicort and performorist has been added. Wheezing much improved on today's exam. Instructed the patient to continue to increase activity as tolerated and get up out of the bed more often. White blood count is 9.2 and hemoglobin is 12.7, sodium is 136 with a potassium of 4.5 and current creatinine is 0.67. 06/28/2020 Patient is seen in follow-up this morning currently resting and on room air stating he is just remove the BiPAP and was resting and states his breathing is easier. Patient continues to use 5 L and discussed with nursing staff about weaning as he normally wears 3-4 L at home. Patient is becoming more dependent on BiPAP throughout the day as well. Will continue with breathing inhalational treatments along with Pulmicort and IV steroids. Wheezing is much improved on exam. 06/29/2020 Patient is evaluated in follow-up this morning with some continued shortness of breath although feels improved and maintained on IV steroids and we'll transition to prednisone taper and then instruct the patient to resume his normal prednisone dosing. Patient continues to be on 4 L oxygen via nasal cannula which is his baseline and does have a BiPAP at home. Recommend following up with pulmonary more closely in the outpatient setting as he continues to use BiPAP throughout the day as well becoming more dependent on BiPAP. Also discussed with the patient extensively about avoiding tobacco use as he continues to smoke cigarettes. Currently no reports of chest pain, shortness of breath, or palpitations. Patient is afebrile. No reports of nausea or vomiting and patient is tolerating diet. Patient will be discharged home today. On exam vital signs are stable. Cardio S1, S2 are muffled. Respiratory shows diminished breath sounds at the bases with scattered rhonchi noted. Abdomen is soft and nontender. Nervous system shows no focal deficits. Please refer to medication reconciliation sheet for a list of medications. Patient Condition at Discharge: Stable Plan - Discharge Summary Discharge Rx Participant: No New Discharge Prescriptions: New predniSONE 10 mg PO DIRECTED #30 tab Ipratropium-Albuterol Nebulize [Duoneb 0.5 mg-3 mg/3 ml Soln] 3 ml INHALATION RT-QID 30 Days #120 ml guaiFENesin [Mucinex] 1,200 mg PO Q12HR #12 tablet.er Continue Alendronate Sodium [Fosamax] 70 mg PO [place] Albuterol Sulfate [Proair Hfa] 2 puff INHALATION RT-TID PRN PRN Reason: Shortness Of Breath Theophylline Anhydrous [Uniphyl] 200 mg PO BID Ipratropium-Albuterol Nebulize [Duoneb 0.5 mg-3 mg/3 ml Soln] 3 ml INHALATION RT-QID PRN PRN Reason: Shortness Of Breath Vitamin B Complex 1 cap PO DAILY Albuterol Nebulized [Ventolin Nebulized] 2.5 mg INHALATION RT-Q4H PRN PRN Reason: Shortness Of Breath Cyanocobalamin (Vitamin B-12) [Vitamin B-12] 1,000 mcg PO Q48H EPINEPHrine (Auto Inject) [Epipen] 0.3 mg IM ONCE PRN PRN Reason: Anaphylaxis Loratadine [Claritin] 10 mg PO DAILY Fluticasone/Umeclidin/Vilanter [Trelegy Ellipta 100-62.5-25] 1 puff INHALATION RT-DAILY Multivit-Min/FA/Lycopen/Lutein [Centrum Silver Tablet] 1 tab PO DAILY Potassium Citrate [Urocit-K] 10 meq PO BID Metoprolol Succinate [Toprol XL] 50 mg PO DAILY ALPRAZolam [Xanax] 1 mg PO BID Azithromycin 250 mg PO Q48H predniSONE 5 mg PO DAILY predniSONE 10 mg PO DAILY PRN PRN Reason: COPD Discharge Medication List Albuterol Sulfate [Proair Hfa] 2 puff INHALATION RT-TID PRN 07/28/16 [History] Alendronate Sodium [Fosamax] 70 mg PO DE [place] CRUZ 07/28/16 [History] Theophylline Anhydrous [Uniphyl] 200 mg PO BID 12/20/16 [History] Ipratropium-Albuterol Nebulize [Duoneb 0.5 mg-3 mg/3 ml Soln] 3 ml INHALATION RT-QID PRN 01/04/18 [History] Albuterol Nebulized [Ventolin Nebulized] 2.5 mg INHALATION RT-Q4H PRN 12/09/18 [History] Cyanocobalamin (Vitamin B-12) [Vitamin B-12] 1,000 mcg PO Q48H 12/09/18 [History] Vitamin B Complex 1 cap PO DAILY 12/09/18 [History] EPINEPHrine (Auto Inject) [Epipen] 0.3 mg IM ONCE PRN 04/01/19 [History] Fluticasone/Umeclidin/Vilanter [Trelegy Ellipta 100-62.5-25] 1 puff INHALATION RT-DAILY 04/01/19 [History] Loratadine [Claritin] 10 mg PO DAILY 04/01/19 [History] Multivit-Min/FA/Lycopen/Lutein [Centrum Silver Tablet] 1 tab PO DAILY 04/01/19 [History] Potassium Citrate [Urocit-K] 10 meq PO BID 04/01/19 [History] ALPRAZolam [Xanax] 1 mg PO BID 06/25/20 [History] Azithromycin 250 mg PO Q48H 06/25/20 [History] Metoprolol Succinate [Toprol XL] 50 mg PO DAILY 06/25/20 [History] predniSONE 5 mg PO DAILY 06/25/20 [History] predniSONE 10 mg PO DAILY PRN 06/25/20 [History] Ipratropium-Albuterol Nebulize [Duoneb 0.5 mg-3 mg/3 ml Soln] 3 ml INHALATION RT-QID 30 Days #120 ml 06/29/20 [Rx] guaiFENesin [Mucinex] 1,200 mg PO Q12HR #12 tablet.er 06/29/20 [Rx] predniSONE 10 mg PO DIRECTED #30 tab 06/29/20 [Rx] Follow up Appointment(s)/Referral(s): Radha Ho MD [STAFF PHYSICIAN] - 1 Week Naye Sanchez DO [Primary Care Provider] - 1-2 days Activity/Diet/Wound Care/Special Instructions: Activity Limited until follow-up Follow-up with primary care provider upon discharge Continue current diet Continue with prednisone taper and then resume normal prednisone dose Follow-up with pulmonary outpatient Discharge Disposition: HOME SELF-CARE
--- NOTE | 2020-06-29 14:38 | P.PN ---
Subjective Progress Note Date: 06/29/20 Principal diagnosis: Acute exacerbation of COPD 59-year-old white male patient well-known to our service for his history of severe end-stage COPD, with chronic hypoxic and hypercapnic respiratory failure, and patient has Trilogy device at home, tobacco dependence syndrome, anxiety, obstructive sleep apnea. Patient was recently seen by Dr. Valencia in the office on 05/22/2020 for a follow-up. He continued to smoke at that time, he was having exertional shortness of breath. Patient did receive his COVID-19 vaccination on 05/19/2020. Patient and his received the [employer] vaccine. His baseline FEV1 30% of predicted. On 06/25/2020 patient presented to the hospital with complaints of left chest discomfort which is constant and worse with deep inspiration. Denies any fever or chills, no cough no hemoptysis, at times he is producing some clear-colored phlegm. He is on azithromycin on the regular basis every other day for prophylaxis. Denies any nausea vomiting or diarrhea. Denies any leg swelling or pain. She takes 5 mg of prednisone on a daily basis she is on azithromycin 250 mg every other day. He is on Trelegy Ellipta for maintenance inhaler. Chest x-ray showed chronic emphysematous changes without acute pulmonary process. Admission blood work showed a white count of 7.0, hemoglobin of 14.5, d-dimer was 0.90, sodium of 138, potassium is 4.2, chloride was 95, CO2 is 40, BUN of 13, creatinine 0.67, LFTs were within normal limits, 3 sets of troponins were less than 0.012. ProBNP was only 38. Pro-calcitonin has been sent and pending at this time, COVID-19 test was negative. Patient was given breathing treatments, IV steroids, and she was placed on BiPAP support overnight, he is currently on 5 L of oxygen his pulse ox is 98%. He is breathing comfortably, lung sounds are positive for diffuse wheezes, patient is admitted with acute exacerbation of COPD On 06/28/2020 patient seen in follow-up on medical surgical floor, he reports breathing easier, is currently on 5 L of oxygen, he did wear BiPAP support last night. No fever or chills, remains on IV steroids, breathing treatments, Pulmicort and Perforomist, his pro-calcitonin level came back low at 0.06, and there is no need for antibiotics, he was negative for COVID-19, troponins were negative 3 The patient is seen today 06/29/2020 in follow-up on the regular medical floor. He is currently resting comfortably in bed. Awake and alert in no acute distress. Breathing easier today compared to yesterday. Alternating with 5 L nasal cannula and BiPAP 12/5 on 40% FiO2. He is afebrile. Hemodynamically stable. Continued on DuoNeb inhalations, Pulmicort and Perforomist inhalations, IV Solu-Medrol, theophylline, Mucinex. Objective - Vital Signs Vital signs: Vital Signs Temp 97.6 F 06/29/20 08:00 Pulse 87 06/29/20 11:53 Resp 15 06/29/20 08:00 BP 142/85 06/29/20 08:00 Pulse Ox 96 06/29/20 08:00 Intake & Output 06/28/20 06/29/20 06/29/20 18:59 06:59 18:59 Other: Voiding Method Toilet Toilet Toilet # Voids 2 - Exam GENERAL EXAM: Alert, very pleasant 59-year-old gentleman, alternating BiPAP with 5 L nasal cannula, comfortable in no apparent distress. HEAD: Normocephalic. EYES: Normal reaction of pupils, equal size. NOSE: Clear with pink turbinates. THROAT: No erythema or exudates. NECK: No masses, no JVD. CHEST: No chest wall deformity. LUNGS: Equal air entry with bilateral end expiratory wheeze, diminished. CVS: S1 and S2 normal with no audible murmur, regular rhythm. ABDOMEN: No hepatosplenomegaly, normal bowel sounds, no guarding or rigidity. SPINE: No scoliosis or deformity SKIN: No rashes CENTRAL NERVOUS SYSTEM: No focal deficits, tone is normal in all 4 extremities. EXTREMITIES: There is no peripheral edema. No clubbing, no cyanosis. Peripheral pulses are intact. - Labs CBC & Chem 7: 06/27/20 06:30 06/27/20 06:30 Assessment and Plan Assessment: 1 Acute exacerbation of COPD, and acute on chronic hypoxic respiratory failure. Patient tested negative for COVID-19. Chest x-ray shows no acute cardiopul monary findings 2 Severe end-stage COPD with chronic hypoxic and hypercapnic respiratory failure with FEV1 of less than 30% of predicted, on home oxygen and patient has a Trilogy ventilator at home that he normally wears 3 History of obstructive sleep apnea 4 Status post Janes & [employer]es COVID 19 vaccination on 05/19/2020 5 Mildly elevated d-dimer, nonspecific, will obtain lower extremity Dopplers 6 Chronic and ongoing history of tobacco dependence 7 Anxiety 8 Depression Plan: The patient was seen and evaluated by Dr. Dr. Reynoso He is improved him back to his baseline He does have severe end-stage COPD We discussed possibility of lung transplant referral He'll discuss this with Dr. Ho this office visit in 1-2 weeks' Complete a prednisone taper Continue his usual pulmonary medications He is encouraged to call sooner if any recurrence of symptoms or other questions or concerns I, the cosigning physician, performed a history & physical examination of the patient. Lungs sounds with end expiratory wheeze, diminished. Maintaining good O2 saturations in the 90s on 5 L/m per nasal cannula. I discussed the assessment and plan of care with my nurse practitioner, Donna Neri. I attest to the above note as dictated by her.
[2020-06-29 15:04] VITALS: BP 157/84; PULSE 86; RESP 16; TEMP 97.8
[2020-07-01] MEDS ORDERED: PATIENT'S OWN (Alendronate Sodium [Fosamax] 70 MG Tablet) PO SCH (07:00)
== END 2020-06-29 15:00 | disposition home or self-care (01) | DRG 190 ==
LOC: EC 12:58 → 4SSUR 14:33
PROVIDERS: ADMIT Internal Medicine; ATTEND Internal Medicine
PROC: 5A09357 Assistance with Respiratory Ventilation, Less than 24 Consecutive Hours, Continuous Positive Airway Pressure (ICD-10-PCS; principal; 2020-06-26)
DX: J44.1 Chronic obstructive pulmonary disease with (acute) exacerbation (principal); J96.21 Acute and chronic respiratory failure with hypoxia; J96.22 Acute and chronic respiratory failure with hypercapnia; I10 Essential (primary) hypertension; M85.80 Other specified disorders of bone density and structure, unspecified site; G47.30 Sleep apnea, unspecified; Z20.822 Contact with and (suspected) exposure to COVID-19; F41.9 Anxiety disorder, unspecified; G47.33 Obstructive sleep apnea (adult) (pediatric); F17.210 Nicotine dependence, cigarettes, uncomplicated; R07.89 Other chest pain; R79.89 Other specified abnormal findings of blood chemistry; F32.9 Major depressive disorder, single episode, unspecified; Z99.81 Dependence on supplemental oxygen; Z87.442 Personal history of urinary calculi; Z79.899 Other long term (current) drug therapy; Z79.83 Long term (current) use of bisphosphonates; Z87.01 Personal history of pneumonia (recurrent); Z80.1 Family history of malignant neoplasm of trachea, bronchus and lung; Z82.5 Family history of asthma and other chronic lower respiratory diseases; Z71.6 Tobacco abuse counseling
CPT/HCPCS: 36415; 71046; 80048; 80053; 83735; 83880; 84145; 84484; 85025; 85379; 85610; 85730; 87635; 93005; 93970; 94640; 94660; 99285

== ENCOUNTER 2021-05-15 22:12 | Emergency (ER) | payer MEDICARE ==
[2021-05-15] MEDS ORDERED: SODIUM CHLORIDE 0.9% 1,000 ML IV STA (22:19)
[2021-05-15] MEDS ORDERED: IPRATROPIUM-ALBUTEROL 3 ML NEB INHALATION STA (22:19)
--- NOTE | 2021-05-15 22:19 | ED ---
SOB HPI - General Stated Complaint: Fall, SOB, ETOH Time Seen by Provider: 05/15/21 22:17 Source: RN notes reviewed, old records reviewed Mode of arrival: EMS Limitations: altered mental status - History of Present Illness Initial Comments: This is a 60-year-old male to the ER after fall. Fall with altered mental status. EMS was called the patient's family who heard the patient fall. Patient himself is unable to provide history currently. History obtained by EMS. EMS does reported history of blood thinners, patient was found unconscious -: hour(s) Severity: severe Severity scale (1-10): 10 Consistency: constant Improves With: oxygen, rest Worsens With: exertion Known History Of: COPD Context: recent URI, trauma/injury Treatments Prior to Arrival: oxygen, other (Cervical collar) - Related Data Home Medications Medication Instructions Recorded Confirmed Albuterol Sulfate [Proair Hfa] 2 puff INHALATION RT-TID PRN 07/28/16 06/25/20 Alendronate Sodium [Fosamax] 70 mg PO [place] 07/28/16 06/25/20 Theophylline Anhydrous [Uniphyl] 200 mg PO BID 12/20/16 06/25/20 Ipratropium-Albuterol Nebulize 3 ml INHALATION RT-QID PRN 01/04/18 06/25/20 [Duoneb 0.5 mg-3 mg/3 ml Soln] Albuterol Nebulized [Ventolin 2.5 mg INHALATION RT-Q4H PRN 12/09/18 06/25/20 Nebulized] Cyanocobalamin (Vitamin B-12) 1,000 mcg PO Q48H 12/09/18 06/25/20 [Vitamin B-12] Vitamin B Complex 1 cap PO DAILY 12/09/18 06/25/20 EPINEPHrine (Auto Inject) [Epipen] 0.3 mg IM ONCE PRN 04/01/19 06/25/20 Fluticasone/Umeclidin/Vilanter 1 puff INHALATION RT-DAILY 04/01/19 06/25/20 [Trelegy Ellipta 100-62.5-25] Loratadine [Claritin] 10 mg PO DAILY 04/01/19 06/25/20 Multivit-Min/FA/Lycopen/Lutein 1 tab PO DAILY 04/01/19 06/25/20 [Centrum Silver Tablet] Potassium Citrate [Urocit-K] 10 meq PO BID 04/01/19 06/25/20 ALPRAZolam [Xanax] 1 mg PO BID 06/25/20 06/25/20 Azithromycin 250 mg PO Q48H 06/25/20 06/25/20 Metoprolol Succinate [Toprol XL] 50 mg PO DAILY 06/25/20 06/25/20 predniSONE 5 mg PO DAILY 06/25/20 06/25/20 predniSONE 10 mg PO DAILY PRN 06/25/20 06/25/20 Previous Rx's Medication Instructions Recorded Ipratropium-Albuterol Nebulize 3 ml INHALATION RT-QID 30 Days 06/29/20 [Duoneb 0.5 mg-3 mg/3 ml Soln] #120 ml guaiFENesin [Mucinex] 1,200 mg PO Q12HR #12 tablet.er 06/29/20 predniSONE 10 mg PO DIRECTED #30 tab 06/29/20 Allergies Allergy/AdvReac Type Severity Reaction Status Date / Time No Known Allergies Allergy Verified 06/25/20 13:44 Review of Systems ROS Statement: Those systems with pertinent positive or pertinent negative responses have been documented in the HPI. ROS Other: All systems not noted in ROS Statement are negative. Past Medical History Past Medical History: COPD, Hypertension, Pneumonia, Renal Disease, Respiratory Disorder, Sleep Apnea/CPAP/BIPAP Additional Past Medical History / Comment(s): Chronic hypoxic respiratory failure with home oxygen at 3-4L/NC ATC, past respiratory failure with ET/vent/trach and peg tube, biPAP/oxygen at night, tracheobronchitis, bronchitis, elevated blood sugars with steroid use, kidney stones, osteopenia History of Any Multi-Drug Resistant Organisms: None Reported Past Surgical History: Hernia Repair, Tonsillectomy Additional Past Surgical History / Comment(s): R inguinal hernia repair, tracheostomy, peg tube. Past Anesthesia/Blood Transfusion Reactions: No Reported Reaction Additional Past Anesthesia/Blood Transfusion Reaction / Comment(s): no blood transfusions Smoking Status: Current some day smoker, Light tobacco smoker - Past Family History Father Family Medical History: Cancer Additional Family Medical History / Comment(s): of lung cancer Mother Family Medical History: Asthma General Exam Limitations: altered mental status General appearance: alert, appears intoxicated, lethargic Head exam: Present: atraumatic, normocephalic, normal inspection Eye exam: Present: normal appearance, PERRL, EOMI. Absent: scleral icterus, conjunctival injection, periorbital swelling ENT exam: Present: normal exam, mucous membranes moist Neck exam: Present: normal inspection. Absent: tenderness, meningismus, lymphadenopathy Respiratory exam: Present: normal lung sounds bilaterally. Absent: respiratory distress, wheezes, rales, rhonchi, stridor Cardiovascular Exam: Present: regular rate, normal rhythm, normal heart sounds. Absent: systolic murmur, diastolic murmur, rubs, gallop, clicks GI/Abdominal exam: Present: soft, normal bowel sounds. Absent: distended, tenderness, guarding, rebound, rigid Extremities exam: Present: normal inspection, full ROM, normal capillary refill. Absent: tenderness, pedal edema, joint swelling, calf tenderness Back exam: Present: normal inspection Neurological exam: Present: alert, oriented X3, CN II-XII intact Psychiatric exam: Present: normal affect, normal mood Skin exam: Present: warm, dry, intact, normal color. Absent: rash Course Vital Signs 05/15/21 05/15/21 22:13 23:29 Temperature 97.6 F Pulse Rate 93 95 Respiratory 18 Rate Blood Pressure 165/97 O2 Sat by Pulse 100 Oximetry - Reevaluation(s) Reevaluation #1: 05/16/21 00:19 Medical record is reviewed Reevaluation #2: 05/16/21 00:19 Patient family informed of results here in the ER Reevaluation #3: 05/16/21 00:19 Patient has no change in clinical condition - Consultations Consultation #1: Spoke with radiology regarding findings Consultation #2: Spoke with vYonne Morris who agree to accept transfer Medical Decision Making - Medical Decision Making 60 male to the emergency department today for evaluation fall from standing intoxicated, posterior scalp laceration, head injury, subarachnoid and subdural hemorrhage, traumatic injury. Patient be transferred [facility] for further evaluation - Lab Data Result diagrams: 05/15/21 23:02 05/15/21 23:02 Lab Results 05/15/21 05/15/21 05/15/21 Range/Units 23:02 23:02 23:02 WBC 8.6 (3.8-10.6) k/uL RBC 4.41 (4.30-5.90) m/uL Hgb 13.5 (13.0-17.5) gm/dL Hct 44.4 (39.0-53.0) % MCV 100.8 H (80.0-100.0) fL MCH 30.7 (25.0-35.0) pg MCHC 30.5 L (31.0-37.0) g/dL RDW 13.1 (11.5-15.5) % Plt Count 157 (150-450) k/uL MPV 8.6 Neutrophils % 75 % Lymphocytes % 18 % Monocytes % 4 % Eosinophils % 1 % Basophils % 1 % Neutrophils # 6.4 (1.3-7.7) k/uL Lymphocytes # 1.6 (1.0-4.8) k/uL Monocytes # 0.3 (0-1.0) k/uL Eosinophils # 0.0 (0-0.7) k/uL Basophils # 0.1 (0-0.2) k/uL Hypochromasia Slight PT 10.2 (9.0-12.0) sec INR 0.9 (<1.2) APTT 21.7 L (22.0-30.0) sec Sodium 140 (137-145) mmol/L Potassium 4.3 (3.5-5.1) mmol/L Chloride 100 (98-107) mmol/L Carbon Dioxide 36 H (22-30) mmol/L Anion Gap 4 mmol/L BUN 13 (9-20) mg/dL Creatinine 0.54 L (0.66-1.25) mg/dL Est GFR (CKD-EPI)AfAm >90 (>60 ml/min/1.73 sqM) Est GFR (CKD-EPI)NonAf >90 (>60 ml/min/1.73 sqM) Glucose 151 H (74-99) mg/dL Calcium 8.5 (8.4-10.2) mg/dL Phosphorus 4.9 H (2.5-4.5) mg/dL Magnesium 1.9 (1.6-2.3) mg/dL Total Bilirubin 0.5 (0.2-1.3) mg/dL AST 36 (17-59) U/L ALT 27 (4-49) U/L Alkaline Phosphatase 61 (38-126) U/L Troponin I (0.000-0.034) ng/mL NT-Pro-B Natriuret Pep pg/mL Total Protein 6.3 (6.3-8.2) g/dL Albumin 3.9 (3.5-5.0) g/dL Serum Alcohol 112 mg/dL 05/15/21 05/15/21 Range/Units 23:02 23:02 WBC (3.8-10.6) k/uL RBC (4.30-5.90) m/uL Hgb (13.0-17.5) gm/dL Hct (39.0-53.0) % MCV (80.0-100.0) fL MCH (25.0-35.0) pg MCHC (31.0-37.0) g/dL RDW (11.5-15.5) % Plt Count (150-450) k/uL MPV Neutrophils % % Lymphocytes % % Monocytes % % Eosinophils % % Basophils % % Neutrophils # (1.3-7.7) k/uL Lymphocytes # (1.0-4.8) k/uL Monocytes # (0-1.0) k/uL Eosinophils # (0-0.7) k/uL Basophils # (0-0.2) k/uL Hypochromasia PT (9.0-12.0) sec INR (<1.2) APTT (22.0-30.0) sec Sodium (137-145) mmol/L Potassium (3.5-5.1) mmol/L Chloride (98-107) mmol/L Carbon Dioxide (22-30) mmol/L Anion Gap mmol/L BUN (9-20) mg/dL Creatinine (0.66-1.25) mg/dL Est GFR (CKD-EPI)AfAm (>60 ml/min/1.73 sqM) Est GFR (CKD-EPI)NonAf (>60 ml/min/1.73 sqM) Glucose (74-99) mg/dL Calcium (8.4-10.2) mg/dL Phosphorus (2.5-4.5) mg/dL Magnesium (1.6-2.3) mg/dL Total Bilirubin (0.2-1.3) mg/dL AST (17-59) U/L ALT (4-49) U/L Alkaline Phosphatase (38-126) U/L Troponin I <0.012 (0.000-0.034) ng/mL NT-Pro-B Natriuret Pep 89 pg/mL Total Protein (6.3-8.2) g/dL Albumin (3.5-5.0) g/dL Serum Alcohol mg/dL - EKG Data -: EKG Interpreted by Me (EKG shows normal sinus rhythm 92 QRS 111 QTC 403) - Radiology Data Radiology results: report reviewed (CT brain C spine CXR XR pelvis show acute traumatic SAH SDH ), image reviewed Critical Care Time Critical Care Time: Yes Total Critical Care Time: 31 Disposition Clinical Impression: Fall, Subarachnoid hemorrhage, Subdural hemorrhage, COPD with acute exacerbation, Alcohol intoxication, Occipital scalp laceration Disposition: OTHER INSTITUTION NOT DEFINED Condition: Serious Is patient prescribed a controlled substance at d/c from ED?: No Referrals: Naye Doll DO [Primary Care Provider] - 1-2 days Time of Disposition: 00:25 - Out of Hospital Transfer - Req. Specs Out of Hospital Transfer - Requested Specifics: Other Emergency Center ([facility])
[2021-05-15 22:31] VITALS: RESP 18; TEMP 97.6
[2021-05-15 23:24] LABS: Basophils # (A) 0.1 k/uL (0-0.2); Basophils % (A) 1 %; Eosinophils % (A) 1 %; HCT 44.4 % (39.0-53.0); HGB 13.5 gm/dL (13.0-17.5); Hypochromasia Slight; Lymphocytes # (A) 1.6 k/uL (1.0-4.8); Lymphocytes % (A) 18 %; MCH 30.7 pg (25.0-35.0); MCHC 30.5 g/dL (31.0-37.0); MCV 100.8 fL (80.0-100.0); Mean Platelet Volume 8.6; Monocytes # (A) 0.3 k/uL (0-1.0); Monocytes % (A) 4 %; Neutrophils # (A) 6.4 k/uL (1.3-7.7); Neutrophils % (A) 75 %; Platelet Count 157 k/uL (150-450); RBC 4.41 m/uL (4.30-5.90); RDW 13.1 % (11.5-15.5); WBC 8.6 k/uL (3.8-10.6)
[2021-05-15 23:28] LABS: ALT 27 U/L (4-49); AST 36 U/L (17-59); African American GFR (CKD) >90 (>60 ml/min/1.73 sqM); Albumin 3.9 g/dL (3.5-5.0); Alkaline Phosphatase 61 U/L (38-126); Anion Gap 4 mmol/L; Blood Urea Nitrogen 13 mg/dL (9-20); Calcium 8.5 mg/dL (8.4-10.2); Carbon Dioxide 36 mmol/L (22-30); Chloride 100 mmol/L (98-107); Glucose 151 mg/dL (74-99); Magnesium 1.9 mg/dL (1.6-2.3); Non-African American GFR(CKD) >90 (>60 ml/min/1.73 sqM); Phosphorus 4.9 mg/dL (2.5-4.5); Potassium 4.3 mmol/L (3.5-5.1); Sodium 140 mmol/L (137-145); Total Bilirubin 0.5 mg/dL (0.2-1.3); Total Protein 6.3 g/dL (6.3-8.2)
[2021-05-15 23:30] LABS: Alcohol 112 mg/dL
[2021-05-15 23:33] LABS: INR 0.9 (<1.2); Partial Thromboplastin Time 21.7 sec (22.0-30.0); Prothrombin Time 10.2 sec (9.0-12.0)
--- NOTE | 2021-05-15 23:58 | XR ---
EXAMINATION TYPE: XR chest 1V portable DATE OF EXAM: 05/15/2021 COMPARISON: 04/26/2021 HISTORY: Short of breath TECHNIQUE: FINDINGS: There is some coarsening of interstitial markings. Heart size is normal. There are no hilar masses. There are chest leads. Mediastinum is normal. Bony thorax is intact. IMPRESSION: Interstitial upper lobe pulmonary infiltrates appear new compared to old exam. This is co nsistent with some mild pneumonia. No heart failure seen.
--- NOTE | 2021-05-16 | XR ---
EXAMINATION TYPE: XR pelvis AP view DATE OF EXAM: 05/15/2021 COMPARISON: 04/12/2018 HISTORY: Fall. TECHNIQUE: Single view FINDINGS: Pelvic ring appears intact. Proximal femurs are intact. Sacroiliac joints appear intact. Hi p joint spaces are fairly normal. There is vascular calcification. IMPRESSION: No acute abnormality of the pelvis. No fracture seen.
--- NOTE | 2021-05-16 00:10 | CT ---
EXAMINATION TYPE: CT brain cspine wo con DATE OF EXAM: 05/15/2021 COMPARISON: None HISTORY: SYNCOPAL EPISODE, FALL, SOB, ETOH CT DLP: 1408.4 mGycm Automated exposure control for dose reduction was used. Images of the brain and cervical spine obtained without contrast. Ventricles have normal size. There is no mass effect or midline shift. There is some high attenuation along the anterior cerebral falx that could be acute subarachnoid hemorrhage. The calvarium is intac t. The skull base is intact. There is normal aeration of the mastoid sinuses. There is also some subt le higher attenuation at the left frontal lobe convexity that could be small area of subdural hemorrh age. Cervical vertebra have normal alignment. Posterior elements are intact. There is no compression fract ure. There is some hypertrophic multilevel facet arthropathy. There is disc space narrowing at C5-6 a nd C6-7 with spur formation. Prevertebral soft tissues appear intact. IMPRESSION: There is evidence for some acute subarachnoid and subdural hemorrhage at the left frontal lobe convex ity and left parietal convexity and along the cerebral falx. Spondylotic changes in the cervical spine. No fracture. Exam was discussed with emergency room staff at 12:15 AM.
[2021-05-16 00:45] VITALS: BP 138/82
[2021-05-16] MEDS ORDERED: ALBUTEROL NEBULIZED 2.5 MG/3 ML INHALATION STA (00:58)
[2021-05-16 01:11] VITALS: PULSE 96
== END 2021-05-16 01:30 | disposition other institution (70) ==
LOC: EC 22:12
DX: S06.6X9A Traumatic subarachnoid hemorrhage with loss of consciousness of unspecified duration, initial encounter (principal); S06.5X9A Traumatic subdural hemorrhage with loss of consciousness of unspecified duration, initial encounter; S01.01XA Laceration without foreign body of scalp, initial encounter; J44.1 Chronic obstructive pulmonary disease with (acute) exacerbation; F10.129 Alcohol abuse with intoxication, unspecified; Y90.5 Blood alcohol level of 100-119 mg/100 ml; I10 Essential (primary) hypertension; F17.200 Nicotine dependence, unspecified, uncomplicated; Z79.51 Long term (current) use of inhaled steroids; Z79.52 Long term (current) use of systemic steroids; Z79.899 Other long term (current) drug therapy; W10.9XXA Fall (on) (from) unspecified stairs and steps, initial encounter
CPT/HCPCS: 36415; 94640 ×2; 93005; 83880; 80053; 83735; 84100; 84484; 85025; 85610; 85730; 72170; 71045; 72125; 70450; 99291; G0480; 80320